=== PATIENT | female | born 1940 | race Caucasian/White ===

== ENCOUNTER → 2017-06-28 07:56 | Outpatient (CLI) | payer MEDICARE, OTHER, SELFPAY ==
[2017-06-28 08:24] LABS: Add Manual Diff / Slide Review NO; Basophils Percent Auto 1.2 % (0-2); Eosinophils Percent Auto 3.2 % (2-4); Hematocrit 38.6 % (36-46); Hemoglobin 13.4 g/dL (12.0-16.0); Lymphocytes Percent Auto 37.4 % (25-40); Mean Corpuscular HGB Conc 34.6 % (30-36); Mean Corpuscular Hemoglobin 32.8 PG (26-34); Mean Corpuscular Volume 94.6 fL (80-100); Monocytes Percent Auto 8.6 % (3-14); Neutrophils Absolute Auto 3600 /uL (3000-5900); Neutrophils Percent Auto 49.6 % (50-75); Platelet Count 105 X10^3/uL (150-400); Red Blood Cell Count 4.08 X10^6/uL (4.0-5.2); Red Cell Distribution Width 14.3 % (11.6-14.8); White Blood Cell Count 7.3 X10^3/uL (4.5-11.0)
== END ==
PROVIDERS: PCP Physician Assistant; Visit Provider Internal Medicine Hematology
DX: D69.3 Immune thrombocytopenic purpura (principal)
CPT/HCPCS: 36415; 85025

== ENCOUNTER → 2017-08-02 07:53 | Outpatient (CLI) | payer MEDICARE, OTHER, SELFPAY ==
[2017-08-02 08:15] LABS: Add Manual Diff / Slide Review NO; Basophils Percent Auto 1.9 % (0-2); Eosinophils Percent Auto 4.5 % (2-4); Hematocrit 38.6 % (36-46); Hemoglobin 13.2 g/dL (12.0-16.0); Lymphocytes Percent Auto 35.2 % (25-40); Mean Corpuscular HGB Conc 34.3 % (30-36); Mean Corpuscular Volume 96.3 fL (80-100); Monocytes Percent Auto 9.9 % (3-14); Neutrophils Absolute Auto 3900 /uL (3000-5900); Neutrophils Percent Auto 48.5 % (50-75); Platelet Count 134 X10^3/uL (150-400); Red Blood Cell Count 4.01 X10^6/uL (4.0-5.2); Red Cell Distribution Width 14.5 % (11.6-14.8)
== END ==
PROVIDERS: PCP Physician Assistant
DX: D69.3 Immune thrombocytopenic purpura (principal)
CPT/HCPCS: 36415; 85025

== ENCOUNTER → 2017-08-28 08:18 | Outpatient (CLI) | payer MEDICARE, OTHER, SELFPAY ==
[2017-08-28 08:35] LABS: Add Manual Diff / Slide Review NO; Basophils Percent Auto 1.5 % (0-2); Eosinophils Percent Auto 3.6 % (2-4); Hematocrit 39.4 % (36-46); Hemoglobin 13.5 g/dL (12.0-16.0); Lymphocytes Percent Auto 23.8 % (25-40); Mean Corpuscular HGB Conc 34.1 % (30-36); Mean Corpuscular Hemoglobin 32.9 PG (26-34); Mean Corpuscular Volume 96.6 fL (80-100); Monocytes Percent Auto 8.4 % (3-14); Neutrophils Absolute Auto 6300 /uL (3000-5900); Neutrophils Percent Auto 62.7 % (50-75); Platelet Count 129 X10^3/uL (150-400); Red Blood Cell Count 4.08 X10^6/uL (4.0-5.2); Red Cell Distribution Width 14.4 % (11.6-14.8)
== END ==
PROVIDERS: PCP Physician Assistant; Visit Provider Internal Medicine Hematology
DX: D69.3 Immune thrombocytopenic purpura (principal)
CPT/HCPCS: 36415; 85025

== ENCOUNTER → 2017-10-03 09:50 | Outpatient (CLI) | payer MEDICARE, OTHER, SELFPAY ==
[2017-10-03 10:14] LABS: Add Manual Diff / Slide Review NO; Basophils Percent Auto 1.6 % (0-2); Eosinophils Percent Auto 3.4 % (2-4); Hematocrit 38.1 % (36-46); Hemoglobin 13.1 g/dL (12.0-16.0); Lymphocytes Percent Auto 26.6 % (25-40); Mean Corpuscular HGB Conc 34.3 % (30-36); Mean Corpuscular Hemoglobin 32.9 PG (26-34); Mean Corpuscular Volume 95.9 fL (80-100); Monocytes Percent Auto 8.4 % (3-14); Neutrophils Absolute Auto 6000 /uL (3000-5900); Platelet Count 119 X10^3/uL (150-400); Red Blood Cell Count 3.97 X10^6/uL (4.0-5.2); Red Cell Distribution Width 14.2 % (11.6-14.8)
== END ==
PROVIDERS: PCP Physician Assistant; Visit Provider Internal Medicine Hematology
DX: D69.3 Immune thrombocytopenic purpura (principal)
CPT/HCPCS: 36415; 85025

== ENCOUNTER → 2017-10-09 14:54 | Outpatient (CLI) | payer MEDICARE, OTHER, SELFPAY | PROVIDERS: PCP Physician Assistant; Visit Provider Internal Medicine | DX: M79.9 Soft tissue disorder, unspecified (principal); D69.6 Thrombocytopenia, unspecified; S81.802A Unspecified open wound, left lower leg, initial encounter | CPT/HCPCS: 11042; 87070; 87075; 87077; 87147; 87186; 87205 ==

== ENCOUNTER → 2017-10-14 13:51 | Outpatient (CLI) | payer MEDICARE, OTHER, SELFPAY ==
--- NOTE | 2017-10-14 | OV.WND_ITS ---
Progress Note Details Patient Name: Priscilla Mahan Patient Number: [id number] PatientPatientDate: 10/14/2017 Clinician: Che Hu Physician / Linen Controller: Jovon Tadeo SUBJECTIVE Chief Complaint This information was obtained from the patient Trauma wound to left lateral leg. Allergies penicillin (Reaction: unkown), Sulfa (Sulfonamide Antibiotics) (Reaction: unknown), Iodinated Contrast Media - Oral and IV Dye (Reaction: rapid heartrate), latex (Severity: Moderate, Reaction: rash) HPI This information was obtained from the patient The following HPI elements were documented for the patient's wound: Location: left leg Quality: trauma new wound hit on car door Severity: mild Duration: 10 days Modifying Factors: ITP, use of Prednisone QD 10/14/17. Seen by Dr. Tadeo. The patient reports some continued pain associated with the lower leg trauma wound. Her wound culture from last week grew a coag negative Staph and she's not currently on antibiotics. 10/09/17. Seen by Dr. Tadeo. The patient returns to clinic with a new left lower leg trauma wound that occurred about one month ago and started as a bruise but has since started to deteriorate and drain a bit. She reports only minimal pain at the site and has not been on antibiotics. 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 She's also been given a prescription for Keflex however has not had this fill yet. 07/16/16. Seen by Brook Prasad PA-C. The patient reports no drainage from her left lower leg wound since her last evaluation. 07/02/16. Seen by Georges Prasad PA-C. The patient reports minimal drainage from her leg wound. 06/25/16. Seen by Georges Prasad PA-C. The patient reports further decreased drainage from her lower leg wound. 06/17/16. Seen by Georges Prasad PA-C. The patient reports decreased drainage from her lower leg wound since her last evaluation. 06/14/16. Seen by Dr. Tadeo. The patient reports minimal discomfort associated with the chronic left lower leg trauma wound since her last visit and she has been applying topical gentamicin for chronic wound infection as recommended. 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 06/05/16. Seen by Dr. Tadeo. The patient reports continued but decreasing burning associated with the chronic left lower leg trauma wound since her last visit when it was noted the wound had deteriorated considerably. She's been applying topical gentamicin for an presumed infection and reports less drainage and has had no fevers. Of note, she continues on prednisone for idiopathic thrombocytopenia. 05/31/16. Seen by Dr. Tadeo. The patient reports some continued burning and drainage associated with the chronic left lower leg trauma wound over the past week. 05/22/16. Seen by Dr. Tadeo. The patient returns to clinic following a trip to [place] where she saw a wound care provider. She states there's been no change with her management and she does not report significant pain nor drainage associated with the chronic left lower leg trauma wound since her last visit at the end of April. She is also seen by general surgery felt there is no need to evacuate the hematoma at that time.She also continues on prednisone for her thrombocytopenia and understands that this has been significantly impacting her wound healing. 05/02/16. Seen by Dr. Tadeo. The patient reports some mild pain at the site of the left lower leg trauma wound and associated hematoma. She does not report significant drainage from the site nor fevers or feeling unwell in general. Of note, her condition is complicated by long-term use of prednisone to treat idiopathic thrombocytopenia. Her platelet count on 04/29/16 was 94. 04/18/16. Seen by Dr. Tadeo. The patient does not report pain nor significant drainage associated with the chronic left lower leg trauma wound and states that the soft tissue swelling which is a hematoma has decreased considerably over the past few weeks. 04/11/16. Seen by Dr. Tadeo. The patient continues to report some mild discomfort associated with the left posterior lower leg trauma wound and associated hematoma. She states there is only minimal drainage associated with the nonpressure ulcers at the site. 04/03/16. Seen by Dr. Tadeo. The patient has been seen previously in our clinic about 3 years ago and presents today with a new small wound in the posterior left lower leg that resulted following a traumatic injury to the area about 3 weeks ago. She complains of swelling and bruising at the site does not report any significant drainage, redness, or fevers. Of note she carries a diagnosis of idiopathic thrombocytopenia and has been on chronic steroid therapy for many years. States banged left leg on June 24 on her 's toenail. It was larger than it is now. Been putting Neosporin on it and left open to air. 08/07/12 Progressing OK. Is geting all wound care in clinic. 08/11/12 states clipped left leg with sandal 2 days ago and has new hematoma. Dressing remains from Friday. States that she feels wound has been more painful.08/25 Pt states burning in leg was terrible yesterday and the leg felt warm. Pt states it feels better today but she still feels a burning. 09/07/12 States tried her support socks this week but just gets new bruises. Frustrating! Changed dressing x 1 this week. States feels is improving 09/15/12 no new complaints 09/24/12 Patient removed dressing yesterday because the wound was tingling and she feels the wound looked different. Patient states that it is yellow around the wound 10/13/12 Skin tear noted from car door on 10/04/12. PT old wound left leg continues to be healed. 11/10/2012- No new problems or complaints. Wound his covered in dark red scab. Patient applying triamcinolone cream to legs once daily. 05/05/13 Patient injured medial part of right lower leg in March. States it has a blister and has not resolved. Appears now as a buise. Injured lateral right leg a few days ago on her bed. Also appears as a red, purple bruise Past Medical History This information was obtained from the patient Patient has a medical history of: Idiopathic Thrombocytopenic Purpura - 07/11/2006 Hypertension Atrial Flutter Osteoporosis Anxiety Microscopic hematuria Scoliosis Complaints and Symptoms This information was obtained from the patient Patient complains of: General Notes: I have reviewed and concur with the Review of Systems and Past Family Social History documents completed by the clinician, I have reviewed and concur with the Wound Assessment document completed by the clinician Cardiovascular (Central/Peripheral): Edema Hematologic/Lymphatic: Bruising, Bleeding / Clotting Disorders, Bleeding Tendency Integumentary (Hair/Skin/Nails): Open Sore Prior Wound History: Drainage, Erythema, Pain Patient denies complaints or symptoms related to: Cardiovascular (Central): Irregular heart beat Cardiovascular (Central/Peripheral): Intermittent Claudication, Lower extremity (leg) resting pain, Lower extremity (leg) swelling Constitutional Symptoms (General Health): Chills, Fever Endocrine: Polydypsia (Excessive Thirst), Polyuria (Excessive Urination) Gastrointestinal (GI): Nausea / Vomiting, Stomach/abdominal pain Genitourinary (): Urinary Incontinence Musculoskeletal: Assistive Devices, Deformities Neurological: Abnormal Gait, Loss of Protective Sensation Prior Wound History: Bleeding, Malodor Psychiatric: Depression, Memory Loss Respiratory: Oxygen Use, Shortness of Breath OBJECTIVE Constitutional BP elevated; Afebrile; Alert and in no distress. Well developed. Alert. Clean appearing.. Height/Length: 65 in (165.1 cm), Weight: 124.7 lbs (56.68 kgs), BMI: 20.7, Temperature: 98.8 ?F ( 37.11 ?C), Pulse: 70 bpm, Respiratory Rate: 16 breaths/min, Blood Pressure: 148/80 mmHg, Pulse Oximetry: 99 %. Ears, Nose, Mouth, and Throat: No clinically significant hearing loss on informal examination. Cardiovascular: Affected extremity exhibits no peripheral edema or cyanosis, is warm, and is well perfused. Capillary refill is less than 2 seconds. Integumentary (Hair, Skin) No periwound erythema, warmth, or significant drainage. No periwound rashes appreciated or noted otherwise.. Refer to appropriate clinician wound documentation for this visit; left lower leg wound extends to subcut with base partially covered with red, friable granulation, remainder fibrin and slough. Wound #4 Left, Lateral Leg is an acute Partial Thickness Trauma Wound and has received a status of Not Healed. Subsequent wound encounter measurements are 1.8cm length x 0.8cm width x 0.1cm depth, with an area of 1.44 sq cm and a volume of 0.144 cubic cm. No tunneling has been noted. No sinus tract has been noted. No undermining has been noted. There is a moderate amount of serosanguineous drainage noted which has no odor. The patient reports a wound pain of level 2/10. The wound margin is attached. Wound bed has Yes epithelialization, No eschar, Yes slough, No granulation. The periwound skin texture is normal. The periwound skin moisture is normal. The periwound skin exhibited: Hemosiderosis. The periwound skin did not exhibit: Atrophie [place], Cyanosis, Ecchymosis, Erythema, Pallor, Rubor. The temperature of the periwound skin is WNL. Periwound skin does not exhibit signs or symptoms of infection. Local Pulse is Palpable. Neurological: Cranial nerves grossly intact with symmetric function normal by informal observation.. ASSESSMENT Active Problems ICD-10 (Encounter Diagnosis) S81.802D - Unspecified open wound, left lower leg, subsequent encounter (Encounter Diagnosis) B95.7 - Other staphylococcus as the cause of diseases classified elsewhere PROCEDURES Wound #4 Wound #4 (Trauma Wound) is located on the left, lateral leg. A skin/ subcutaneous tissue level surgical debridement with a total area debrided of 1.44 sq cm was performed by Jovon Tadeo MD. Subcutaneous was removed along with devitalized tissue: clots and exudate. The following instrument(s) were used: curette. Pain control was achieved using 4% Lido. A time out was conducted prior to the start of the procedure. A minimal amount of bleeding was controlled with n/a. The procedure was tolerated well with a pain level of 0 throughout and a pain level of 0 following the procedure. Post Debridement Measurements: 1.8cm length x 0.8cm width x 0.2cm depth; with an area of 1.44 sq cm and a volume of 0.288 cubic cm; Additional Information Muscle fascia or bone removed and sent to pathology?: No PLAN Wound Orders: Wound #4 Left, Lateral Leg Anesthetic Topical Xylocaine to wound bed. - In clinic only. Cleanser Cleanse Wound: - Normal saline and gauze, may use distilled water at home. May Shower. - Please protect in shower, using cast protector or plastic bag. Topical Treatments Antibiotic/Antimicrobial Ointment/Cream. - Gentamicin ointment. Dressings Primary dressing: - Adaptic cut to cover. Cover and secure with: - Aquacel foam cut to place over adaptic, secured with conform wrap gauze. Change Dressing: - Every other day. Additional Orders: Follow-Up Appointments Return Appointment: - - One week. Other information: If you develop fever, chills, increased pain, drainage, redness or swelling please call our office. If after hours, respond to the ER. Should you experience any significant changes in your wound (s) or have any questions regarding your home care instructions please contact the wound center @ [phone]. If after hours, contact your primary care physician or go to the hospital emergency room. Scribing Attestation I attest, as the nurse, that I scribed these orders for the physician. General Notes: Culture results reviewed today, no need to take the cephalexin at this time. I've reviewed the clinician's documentation and agree with the evaluation and plan as written. In addition the patient's wound demonstrates evidence of non-viable devitalized tissue which will continue to benefit from sharp debridement to help promote granulation and expedite healing. Also, the patient will apply topical gentamicin to treat the coag negative Staph culture. Electronic Signature(s) Signed By: Date: Jovon Tadeo MD 10/15/2017 06:50:35 Entered By: Jovon Tadeo on 10/15/2017 06:39:32
== END ==
PROVIDERS: PCP Physician Assistant; Visit Provider Internal Medicine
DX: S81.802A Unspecified open wound, left lower leg, initial encounter (principal); W22.8XXA Striking against or struck by other objects, initial encounter; B95.7 Other staphylococcus as the cause of diseases classified elsewhere
CPT/HCPCS: 11042

== ENCOUNTER → 2017-10-16 08:08 | Outpatient (CLI) | payer MEDICARE, OTHER, SELFPAY ==
[2017-10-16 09:16] LABS: Add Manual Diff / Slide Review NO; Basophils Percent Auto 2.8 % (0-2); Eosinophils Percent Auto 4.2 % (2-4); Hematocrit 39.9 % (36-46); Hemoglobin 13.6 g/dL (12.0-16.0); Lymphocytes Percent Auto 38.4 % (25-40); Mean Corpuscular Hemoglobin 32.9 PG (26-34); Mean Corpuscular Volume 96.8 fL (80-100); Monocytes Percent Auto 8.2 % (3-14); Neutrophils Absolute Auto 3600 /uL (3000-5900); Neutrophils Percent Auto 46.4 % (50-75); Platelet Count 143 X10^3/uL (150-400); Red Blood Cell Count 4.12 X10^6/uL (4.0-5.2); Red Cell Distribution Width 14.2 % (11.6-14.8); White Blood Cell Count 7.8 X10^3/uL (4.5-11.0)
== END ==
PROVIDERS: PCP Physician Assistant; Visit Provider Internal Medicine Hematology
DX: D69.3 Immune thrombocytopenic purpura (principal)
CPT/HCPCS: 36415; 85025

== ENCOUNTER → 2017-10-20 09:28 | Outpatient (CLI) | payer MEDICARE, OTHER, SELFPAY ==
--- NOTE | 2017-10-20 | OV.WND_ITS ---
Progress Note Details Patient Name: Priscilla Mahan Patient Number: [id number] PatientPatientDate: 10/20/2017 Clinician: Radha Dunn Clinician Cosigner: Dennise Pereira Physician / Traditional Chinese Herbalist: Jovon Tadeo SUBJECTIVE Chief Complaint This information was obtained from the patient Trauma wound to left lateral leg. Allergies penicillin (Reaction: unkown), Sulfa (Sulfonamide Antibiotics) (Reaction: unknown), Iodinated Contrast Media - Oral and IV Dye (Reaction: rapid heartrate), latex (Severity: Moderate, Reaction: rash) HPI This information was obtained from the patient The following HPI elements were documented for the patient's wound: Location: left leg Quality: trauma new wound hit on car door Severity: mild Duration: 10 days Modifying Factors: ITP, use of Prednisone QD 10/20/17. Seen by Dr. Tadeo. The patient reports minimal discomfort associated with the chronic left lower leg trauma wound since her last visit and she has been applying topical gentamicin for chronic wound infection as recommended. 10/14/17. Seen by Dr. Tadeo. The patient reports some continued pain associated with the lower leg trauma wound. Her wound culture from last week grew a coag negative Staph and she's not currently on antibiotics. 10/09/17. Seen by Dr. Tadeo. The patient returns to clinic with a new left lower leg trauma wound that occurred about one month ago and started as a bruise but has since started to deteriorate and drain a bit. She reports only minimal pain at the site and has not been on antibiotics. 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 She's also been given a prescription for Keflex however has not had this fill yet. 07/16/16. Seen by Brook Prasad PA-C. The patient reports no drainage from her left lower leg wound since her last evaluation. 07/02/16. Seen by Georges Prasad PA-C. The patient reports minimal drainage from her leg wound. 06/25/16. Seen by Georges Prasad PA-C. The patient reports further decreased drainage from her lower leg wound. 06/17/16. Seen by Georges Prasad PA-C. The patient reports decreased drainage from her lower leg wound since her last evaluation. 06/14/16. Seen by Dr. Tadeo. The patient reports minimal discomfort associated with the chronic left lower leg trauma wound since her last visit and she has been applying topical gentamicin for chronic wound infection as recommended. 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 06/05/16. Seen by Dr. Tadeo. The patient reports continued but decreasing burning associated with the chronic left lower leg trauma wound since her last visit when it was noted the wound had deteriorated considerably. She's been applying topical gentamicin for an presumed infection and reports less drainage and has had no fevers. Of note, she continues on prednisone for idiopathic thrombocytopenia. 05/31/16. Seen by Dr. Tadeo. The patient reports some continued burning and drainage associated with the chronic left lower leg trauma wound over the past week. 05/22/16. Seen by Dr. Tadeo. The patient returns to clinic following a trip to [place] where she saw a wound care provider. She states there's been no change with her management and she does not report significant pain nor drainage associated with the chronic left lower leg trauma wound since her last visit at the end of April. She is also seen by general surgery felt there is no need to evacuate the hematoma at that time.She also continues on prednisone for her thrombocytopenia and understands that this has been significantly impacting her wound healing. 05/02/16. Seen by Dr. Tadeo. The patient reports some mild pain at the site of the left lower leg trauma wound and associated hematoma. She does not report significant drainage from the site nor fevers or feeling unwell in general. Of note, her condition is complicated by long-term use of prednisone to treat idiopathic thrombocytopenia. Her platelet count on 04/29/16 was 94. 04/18/16. Seen by Dr. Tadeo. The patient does not report pain nor significant drainage associated with the chronic left lower leg trauma wound and states that the soft tissue swelling which is a hematoma has decreased considerably over the past few weeks. 04/11/16. Seen by Dr. Tadeo. The patient continues to report some mild discomfort associated with the left posterior lower leg trauma wound and associated hematoma. She states there is only minimal drainage associated with the nonpressure ulcers at the site. 04/03/16. Seen by Dr. Tadeo. The patient has been seen previously in our clinic about 3 years ago and presents today with a new small wound in the posterior left lower leg that resulted following a traumatic injury to the area about 3 weeks ago. She complains of swelling and bruising at the site does not report any significant drainage, redness, or fevers. Of note she carries a diagnosis of idiopathic thrombocytopenia and has been on chronic steroid therapy for many years. States banged left leg on June 24 on her 's toenail. It was larger than it is now. Been putting Neosporin on it and left open to air. 08/07/12 Progressing OK. Is geting all wound care in clinic. 08/11/12 states clipped left leg with sandal 2 days ago and has new hematoma. Dressing remains from Friday. States that she feels wound has been more painful.08/25 Pt states burning in leg was terrible yesterday and the leg felt warm. Pt states it feels better today but she still feels a burning. 09/07/12 States tried her support socks this week but just gets new bruises. Frustrating! Changed dressing x 1 this week. States feels is improving 09/15/12 no new complaints 09/24/12 Patient removed dressing yesterday because the wound was tingling and she feels the wound looked different. Patient states that it is yellow around the wound 10/13/12 Skin tear noted from car door on 10/04/12. PT old wound left leg continues to be healed. 11/10/2012- No new problems or complaints. Wound his covered in dark red scab. Patient applying triamcinolone cream to legs once daily. 05/05/13 Patient injured medial part of right lower leg in March. States it has a blister and has not resolved. Appears now as a buise. Injured lateral right leg a few days ago on her bed. Also appears as a red, purple bruise Past Medical History This information was obtained from the patient Patient has a medical history of: Idiopathic Thrombocytopenic Purpura - 07/11/2006 Hypertension Atrial Flutter Osteoporosis Anxiety Microscopic hematuria Scoliosis Complaints and Symptoms This information was obtained from the patient Patient complains of: General Notes: I have reviewed and concur with the Review of Systems and Past Family Social History documents completed by the clinician, I have reviewed and concur with the Wound Assessment document completed by the clinician Cardiovascular (Central/Peripheral): Edema Hematologic/Lymphatic: Bruising, Bleeding / Clotting Disorders, Bleeding Tendency Integumentary (Hair/Skin/Nails): Open Sore Prior Wound History: Drainage, Erythema, Pain Patient denies complaints or symptoms related to: Cardiovascular (Central): Irregular heart beat Cardiovascular (Central/Peripheral): Intermittent Claudication, Lower extremity (leg) resting pain, Lower extremity (leg) swelling Constitutional Symptoms (General Health): Chills, Fever Endocrine: Polydypsia (Excessive Thirst), Polyuria (Excessive Urination) Gastrointestinal (GI): Nausea / Vomiting, Stomach/abdominal pain Genitourinary (): Urinary Incontinence Musculoskeletal: Assistive Devices, Deformities Neurological: Abnormal Gait, Loss of Protective Sensation Prior Wound History: Bleeding, Malodor Psychiatric: Depression, Memory Loss Respiratory: Oxygen Use, Shortness of Breath OBJECTIVE Constitutional BP elevated; Afebrile; Alert and in no distress. Well developed. Alert. Clean appearing.. Height/Length: 65 in (165.1 cm), Weight: 126.3 lbs (57.41 kgs), BMI: 21, Temperature: 98.0 ?F ( 36.67 ?C), Pulse: 70 bpm, Respiratory Rate: 18 breaths/min, Blood Pressure: 140/82 mmHg, Pulse Oximetry: 96 %. Ears, Nose, Mouth, and Throat: No clinically significant hearing loss on informal examination. Cardiovascular: 1+ left lower extremity edema. Integumentary (Hair, Skin) Hemosiderin staining noted over left lower leg. Refer to appropriate clinician wound documentation for this visit; left lower leg wound extends to subcut with base partially covered with pink granulation, remainder minimal hematoma, fibrin and slough. Wound #4 Left, Lateral Leg is an acute Partial Thickness Trauma Wound and has received a status of Not Healed. Subsequent wound encounter measurements are 1.8cm length x 1.2cm width x 0.1cm depth, with an area of 2.16 sq cm and a volume of 0.216 cubic cm. No tunneling has been noted. No sinus tract has been noted. No undermining has been noted. There is a moderate amount of serosanguineous drainage noted which has no odor. The patient reports a wound pain of level 2/10. The wound margin is attached. Wound bed has No epithelialization, No eschar, Yes slough, Yes pink, spongy granulation. The periwound skin texture is normal. The periwound skin moisture is normal. The periwound skin exhibited: Hemosiderosis. The periwound skin did not exhibit: Atrophie [place], Cyanosis, Ecchymosis, Erythema, Pallor, Rubor. The temperature of the periwound skin is WNL. Periwound skin does not exhibit signs or symptoms of infection. Local Pulse is Palpable. Neurological: Cranial nerves grossly intact with symmetric function normal by informal observation.. ASSESSMENT Active Problems ICD-10 (Encounter Diagnosis) S81.802D - Unspecified open wound, left lower leg, subsequent encounter (Encounter Diagnosis) M79.9 - Soft tissue disorder, unspecified PROCEDURES Wound #4 Wound #4 (Trauma Wound) is located on the left, lateral leg. A skin/ subcutaneous tissue level surgical debridement with a total area debrided of 2.16 sq cm was performed by Jovon Tadeo MD. Subcutaneous was removed along with devitalized tissue: exudate and slough. The following instrument(s) were used: curette. Pain control was achieved using 4% Lido. A time out was conducted prior to the start of the procedure. A minimal amount of bleeding was controlled with pressure. The procedure was tolerated well with a pain level of 0 throughout and a pain level of 0 following the procedure. Post Debridement Measurements: 1.8cm length x 1.2cm width x 0.2cm depth; with an area of 2.16 sq cm and a volume of 0.432 cubic cm; Additional Information Muscle fascia or bone removed and sent to pathology?: No PLAN Wound Orders: Wound #4 Left, Lateral Leg Anesthetic Topical Xylocaine to wound bed. - In clinic only. Cleanser Cleanse Wound: - Normal saline and gauze, may use distilled water at home. May Shower. - Please protect in shower, using cast protector or plastic bag. Dressings Primary dressing: - Adaptic cut to cover. Cover and secure with: - Aquacel foam cut to place over adaptic, secured with conform wrap gauze. Change Dressing: - Every other day. Scribing Attestation I attest, as the nurse, that I scribed these orders for the physician. Additional Orders: Follow-Up Appointments Return Appointment: - - One week. Other information: If you develop fever, chills, increased pain, drainage, redness or swelling please call our office. If after hours, respond to the ER. Should you experience any significant changes in your wound (s) or have any questions regarding your home care instructions please contact the wound center @ [phone]. If after hours, contact your primary care physician or go to the hospital emergency room. I've reviewed the clinician's documentation and agree with the evaluation and plan as written. In addition the patient's wound demonstrates evidence of non-viable devitalized tissue which will continue to benefit from sharp debridement to help promote granulation and expedite healing. Also, I've removed a small amount of hematoma from the wound base and we'll discontinue use of topical gentamicin. Electronic Signature(s) Signed By: Date: Jovon Tadeo MD 10/21/2017 09:56:44 Entered By: Jovon Tadeo on 10/21/2017 08:48:01
== END ==
PROVIDERS: PCP Physician Assistant; Visit Provider Internal Medicine
DX: S81.802D Unspecified open wound, left lower leg, subsequent encounter (principal)
CPT/HCPCS: 11042

== ENCOUNTER → 2017-10-27 08:42 | Outpatient (CLI) | payer MEDICARE, OTHER, SELFPAY ==
--- NOTE | 2017-10-27 | OV.WND_ITS ---
Progress Note Details Patient Name: Priscilla Mahan Patient Number: [id number] PatientPatientDate: 10/27/2017 Clinician: Radha Dunn Clinician Cosigner: Dennise Pereira Physician / Boilermaker Welder: Jovon Tadeo SUBJECTIVE Chief Complaint This information was obtained from the patient Trauma wound to left lateral leg. Allergies penicillin (Reaction: unkown), Sulfa (Sulfonamide Antibiotics) (Reaction: unknown), Iodinated Contrast Media - Oral and IV Dye (Reaction: rapid heartrate), latex (Severity: Moderate, Reaction: rash) HPI This information was obtained from the patient The following HPI elements were documented for the patient's wound: Location: left leg Quality: trauma new wound hit on car door Severity: mild Duration: 10 days Modifying Factors: ITP, use of Prednisone QD 10/27/17. Seen by Dr. Tadeo. The patient reports minimal discomfort associated with the chronic left lower leg trauma wound since her last visit and she has been applying topical gentamicin for chronic wound infection as recommended. 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 10/20/17. Seen by Dr. Tadeo. The patient reports minimal discomfort associated with the chronic left lower leg trauma wound since her last visit and she has been applying topical gentamicin for chronic wound infection as recommended. 10/14/17. Seen by Dr. Tadeo. The patient reports some continued pain associated with the lower leg trauma wound. Her wound culture from last week grew a coag negative Staph and she's not currently on antibiotics. 10/09/17. Seen by Dr. Tadeo. The patient returns to clinic with a new left lower leg trauma wound that occurred about one month ago and started as a bruise but has since started to deteriorate and drain a bit. She reports only minimal pain at the site and has not been on antibiotics. 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 She's also been given a prescription for Keflex however has not had this fill yet. 07/16/16. Seen by Brook Prasad PA-C. The patient reports no drainage from her left lower leg wound since her last evaluation. 07/02/16. Seen by Georges Prasad PA-C. The patient reports minimal drainage from her leg wound. 06/25/16. Seen by Georges Prasad PA-C. The patient reports further decreased drainage from her lower leg wound. 06/17/16. Seen by Georges Prasad PA-C. The patient reports decreased drainage from her lower leg wound since her last evaluation. 06/14/16. Seen by Dr. Tadeo. The patient reports minimal discomfort associated with the chronic left lower leg trauma wound since her last visit and she has been applying topical gentamicin for chronic wound infection as recommended. 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 06/05/16. Seen by Dr. Tadeo. The patient reports continued but decreasing burning associated with the chronic left lower leg trauma wound since her last visit when it was noted the wound had deteriorated considerably. She's been applying topical gentamicin for an presumed infection and reports less drainage and has had no fevers. Of note, she continues on prednisone for idiopathic thrombocytopenia. 05/31/16. Seen by Dr. Tadeo. The patient reports some continued burning and drainage associated with the chronic left lower leg trauma wound over the past week. 05/22/16. Seen by Dr. Tadeo. The patient returns to clinic following a trip to [place] where she saw a wound care provider. She states there's been no change with her management and she does not report significant pain nor drainage associated with the chronic left lower leg trauma wound since her last visit at the end of April. She is also seen by general surgery felt there is no need to evacuate the hematoma at that time.She also continues on prednisone for her thrombocytopenia and understands that this has been significantly impacting her wound healing. 05/02/16. Seen by Dr. Tadeo. The patient reports some mild pain at the site of the left lower leg trauma wound and associated hematoma. She does not report significant drainage from the site nor fevers or feeling unwell in general. Of note, her condition is complicated by long-term use of prednisone to treat idiopathic thrombocytopenia. Her platelet count on 04/29/16 was 94. 04/18/16. Seen by Dr. Tadeo. The patient does not report pain nor significant drainage associated with the chronic left lower leg trauma wound and states that the soft tissue swelling which is a hematoma has decreased considerably over the past few weeks. 04/11/16. Seen by Dr. Tadeo. The patient continues to report some mild discomfort associated with the left posterior lower leg trauma wound and associated hematoma. She states there is only minimal drainage associated with the nonpressure ulcers at the site. 04/03/16. Seen by Dr. Tadeo. The patient has been seen previously in our clinic about 3 years ago and presents today with a new small wound in the posterior left lower leg that resulted following a traumatic injury to the area about 3 weeks ago. She complains of swelling and bruising at the site does not report any significant drainage, redness, or fevers. Of note she carries a diagnosis of idiopathic thrombocytopenia and has been on chronic steroid therapy for many years. States banged left leg on June 24 on her 's toenail. It was larger than it is now. Been putting Neosporin on it and left open to air. 08/07/12 Progressing OK. Is geting all wound care in clinic. 08/11/12 states clipped left leg with sandal 2 days ago and has new hematoma. Dressing remains from Friday. States that she feels wound has been more painful.08/25 Pt states burning in leg was terrible yesterday and the leg felt warm. Pt states it feels better today but she still feels a burning. 09/07/12 States tried her support socks this week but just gets new bruises. Frustrating! Changed dressing x 1 this week. States feels is improving 09/15/12 no new complaints 09/24/12 Patient removed dressing yesterday because the wound was tingling and she feels the wound looked different. Patient states that it is yellow around the wound 10/13/12 Skin tear noted from car door on 10/04/12. PT old wound left leg continues to be healed. 11/10/2012- No new problems or complaints. Wound his covered in dark red scab. Patient applying triamcinolone cream to legs once daily. 05/05/13 Patient injured medial part of right lower leg in March. States it has a blister and has not resolved. Appears now as a buise. Injured lateral right leg a few days ago on her bed. Also appears as a red, purple bruise Past Medical History This information was obtained from the patient Patient has a medical history of: Idiopathic Thrombocytopenic Purpura - 07/11/2006 Hypertension Atrial Flutter Osteoporosis Anxiety Microscopic hematuria Scoliosis Complaints and Symptoms This information was obtained from the patient Patient complains of: General Notes: I have reviewed and concur with the Review of Systems and Past Family Social History documents completed by the clinician, I have reviewed and concur with the Wound Assessment document completed by the clinician Cardiovascular (Central/Peripheral): Edema Hematologic/Lymphatic: Bruising, Bleeding / Clotting Disorders, Bleeding Tendency Integumentary (Hair/Skin/Nails): Open Sore Prior Wound History: Drainage, Erythema, Pain Patient denies complaints or symptoms related to: Cardiovascular (Central): Irregular heart beat Cardiovascular (Central/Peripheral): Intermittent Claudication, Lower extremity (leg) resting pain, Lower extremity (leg) swelling Constitutional Symptoms (General Health): Chills, Fever Endocrine: Polydypsia (Excessive Thirst), Polyuria (Excessive Urination) Gastrointestinal (GI): Nausea / Vomiting, Stomach/abdominal pain Genitourinary (): Urinary Incontinence Musculoskeletal: Assistive Devices, Deformities Neurological: Abnormal Gait, Loss of Protective Sensation Prior Wound History: Bleeding, Malodor Psychiatric: Depression, Memory Loss Respiratory: Oxygen Use, Shortness of Breath OBJECTIVE Constitutional Vital signs reviewed and noted. Well developed. Alert. Clean appearing.. Height/ Length: 65 in (165.1 cm), Weight: 124.8 lbs (56.73 kgs), BMI: 20.8, Temperature: 97.8 ?F (36.56 ?C), Pulse : 77 bpm, Respiratory Rate: 18 breaths/min, Blood Pressure: 129/75 mmHg, Pulse Oximetry: 98 %. Ears, Nose, Mouth, and Throat: No clinically significant hearing loss on informal examination. Cardiovascular: 1+ left lower extremity edema. Integumentary (Hair, Skin) No periwound erythema, warmth, or significant drainage. No periwound rashes appreciated or noted otherwise.. Refer to appropriate clinician wound documentation for this visit; left lower leg wound extends to subcut with base partially covered with pink granulation, remainder fibrin and slough. Wound #4 Left, Lateral Leg is an acute Partial Thickness Trauma Wound and has received a status of Not Healed. Subsequent wound encounter measurements are 1.6cm length x 1.3cm width x 0.1cm depth, with an area of 2.08 sq cm and a volume of 0.208 cubic cm. No tunneling has been noted. No sinus tract has been noted. No undermining has been noted. There is a moderate amount of serosanguineous drainage noted which has no odor. The patient reports a wound pain of level 2/10. The wound margin is attached. Wound bed has No epithelialization, No eschar, Yes slough, No granulation. The periwound skin texture is normal. The periwound skin moisture is normal. The periwound skin exhibited: Hemosiderosis. The periwound skin did not exhibit: Atrophie Bess, Cyanosis, Ecchymosis, Erythema, Pallor, Rubor. The temperature of the periwound skin is WNL. Periwound skin does not exhibit signs or symptoms of infection. Local Pulse is Palpable. Neurological: Cranial nerves grossly intact with symmetric function normal by informal observation.. 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 A skin/ subcutaneous tissue level surgical debridement with a total area debrided of 2.08 sq cm was performed by Jovon Tadeo MD. Subcutaneous was removed along with devitalized tissue: slough. The following instrument(s) were used: curette. Pain control was achieved using 4% Lido. A time out was conducted prior to the start of the procedure. A minimal amount of bleeding was controlled with pressure. The procedure was tolerated well with a pain level of 0 throughout and a pain level of 0 following the procedure. Post Debridement Measurements: 1.6cm length x 1.3cm width x 0.1cm depth; with an area of 2.08 sq cm and a volume of 0.208 cubic cm; Additional Information Muscle fascia or bone removed and sent to pathology?: No PLAN Wound Orders: Wound #4 Left, Lateral Leg Anesthetic Topical Xylocaine to wound bed. - In clinic only. Cleanser Cleanse Wound: - Normal saline and gauze, may use distilled water at home. May Shower. - Please protect in shower, using cast protector or plastic bag. Dressings Primary dressing: - Triple antibiotic ointmentm Cover and secure with: - Border Foam Change Dressing: - Every other day. Compression/Edema Control Elevation of leg(s) above the level of the heart when sitting. Avoid prolonged standing in one place. Single Layer Compression Hose - Tetra F Scribing Attestation I attest, as the nurse, that I scribed these orders for the physician. Additional Orders: Follow-Up Appointments Return Appointment: - - One week. Other information: If you develop fever, chills, increased pain, drainage, redness or swelling please call our office. If after hours, respond to the ER. Should you experience any significant changes in your wound (s) or have any questions regarding your home care instructions please contact the wound center @ . If after hours, contact your primary care physician or go to the hospital emergency room. I've reviewed the clinician's documentation and agree with the evaluation and plan as written. In addition the patient's wound demonstrates evidence of non-viable devitalized tissue which will continue to benefit from sharp debridement to help promote granulation and expedite healing. Also, the patient understands her wound healing is significantly delayed due to her chronic use of prednisone. Electronic Signature(s) Signed By: Date: Jovon Tadeo MD 10/27/2017 17:46:20 Entered By: Jovon Tadeo on 10/27/2017 17:44:22
== END ==
PROVIDERS: Family Provider Physician Assistant; PCP Physician Assistant; Visit Provider Internal Medicine
DX: S81.802A Unspecified open wound, left lower leg, initial encounter (principal); Z79.52 Long term (current) use of systemic steroids
CPT/HCPCS: 11042

== ENCOUNTER → 2017-11-04 13:01 | Outpatient (CLI) | payer MEDICARE, OTHER, SELFPAY ==
--- NOTE | 2017-11-04 | OV.WND_ITS ---
Progress Note Details Patient Name: Priscilla Mahan Patient Number: [id number] PatientPatientDate: 11/04/2017 Clinician: Paola Pfeiffer Clinician Cosigner: Dennise Pereira Physician / Manager Corporate Communications: Jovon Tadeo SUBJECTIVE Chief Complaint This information was obtained from the patient Trauma wound to left lateral leg. Allergies penicillin (Reaction: unkown), Sulfa (Sulfonamide Antibiotics) (Reaction: unknown), Iodinated Contrast Media - Oral and IV Dye (Reaction: rapid heartrate), latex (Severity: Moderate, Reaction: rash) HPI This information was obtained from the patient The following HPI elements were documented for the patient's wound: Location: left leg Quality: trauma new wound hit on car door Severity: mild Duration: 10 days Modifying Factors: ITP, use of Prednisone QD 11/04/17. Seen by Dr. Tadeo. The patient reports minimal discomfort associated with the chronic left lower leg trauma wound since her last visit. She also has a new right lower leg biopsy site her radio operator has asked that we review noting her history of very slow wound healing due to chronic prednisone use treating ITP. 10/27/17. Seen by Dr. Tadeo. The patient reports minimal discomfort associated with the chronic left lower leg trauma wound since her last visit and she has been applying topical gentamicin for chronic wound infection as recommended. 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 10/20/17. Seen by Dr. Tadeo. The patient reports minimal discomfort associated with the chronic left lower leg trauma wound since her last visit and she has been applying topical gentamicin for chronic wound infection as recommended. 10/14/17. Seen by Dr. Tadeo. The patient reports some continued pain associated with the lower leg trauma wound. Her wound culture from last week grew a coag negative Staph and she's not currently on antibiotics. 10/09/17. Seen by Dr. Tadeo. The patient returns to clinic with a new left lower leg trauma wound that occurred about one month ago and started as a bruise but has since started to deteriorate and drain a bit. She reports only minimal pain at the site and has not been on antibiotics. 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 She's also been given a prescription for Keflex however has not had this fill yet. 07/16/16. Seen by Brook Prasad PA-C. The patient reports no drainage from her left lower leg wound since her last evaluation. 07/02/16. Seen by Georges Prasad PA-C. The patient reports minimal drainage from her leg wound. 06/25/16. Seen by Georges Prasad PA-C. The patient reports further decreased drainage from her lower leg wound. 06/17/16. Seen by Georges Prasad PA-C. The patient reports decreased drainage from her lower leg wound since her last evaluation. 06/14/16. Seen by Dr. Tadeo. The patient reports minimal discomfort associated with the chronic left lower leg trauma wound since her last visit and she has been applying topical gentamicin for chronic wound infection as recommended. 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 06/05/16. Seen by Dr. Tadeo. The patient reports continued but decreasing burning associated with the chronic left lower leg trauma wound since her last visit when it was noted the wound had deteriorated considerably. She's been applying topical gentamicin for an presumed infection and reports less drainage and has had no fevers. Of note, she continues on prednisone for idiopathic thrombocytopenia. 05/31/16. Seen by Dr. Tadeo. The patient reports some continued burning and drainage associated with the chronic left lower leg trauma wound over the past week. 05/22/16. Seen by Dr. Tadeo. The patient returns to clinic following a trip to [place] where she saw a wound care provider. She states there's been no change with her management and she does not report significant pain nor drainage associated with the chronic left lower leg trauma wound since her last visit at the end of April. She is also seen by general surgery felt there is no need to evacuate the hematoma at that time.She also continues on prednisone for her thrombocytopenia and understands that this has been significantly impacting her wound healing. 05/02/16. Seen by Dr. Tadeo. The patient reports some mild pain at the site of the left lower leg trauma wound and associated hematoma. She does not report significant drainage from the site nor fevers or feeling unwell in general. Of note, her condition is complicated by long-term use of prednisone to treat idiopathic thrombocytopenia. Her platelet count on 04/29/16 was 94. 04/18/16. Seen by Dr. Tadeo. The patient does not report pain nor significant drainage associated with the chronic left lower leg trauma wound and states that the soft tissue swelling which is a hematoma has decreased considerably over the past few weeks. 04/11/16. Seen by Dr. Tadeo. The patient continues to report some mild discomfort associated with the left posterior lower leg trauma wound and associated hematoma. She states there is only minimal drainage associated with the nonpressure ulcers at the site. 04/03/16. Seen by Dr. Tadeo. The patient has been seen previously in our clinic about 3 years ago and presents today with a new small wound in the posterior left lower leg that resulted following a traumatic injury to the area about 3 weeks ago. She complains of swelling and bruising at the site does not report any significant drainage, redness, or fevers. Of note she carries a diagnosis of idiopathic thrombocytopenia and has been on chronic steroid therapy for many years. States banged left leg on June 24 on her 's toenail. It was larger than it is now. Been putting Neosporin on it and left open to air. 08/07/12 Progressing OK. Is geting all wound care in clinic. 08/11/12 states clipped left leg with sandal 2 days ago and has new hematoma. Dressing remains from Friday. States that she feels wound has been more painful.08/25 Pt states burning in leg was terrible yesterday and the leg felt warm. Pt states it feels better today but she still feels a burning. 09/07/12 States tried her support socks this week but just gets new bruises. Frustrating! Changed dressing x 1 this week. States feels is improving 09/15/12 no new complaints 09/24/12 Patient removed dressing yesterday because the wound was tingling and she feels the wound looked different. Patient states that it is yellow around the wound 10/13/12 Skin tear noted from car door on 10/04/12. PT old wound left leg continues to be healed. 11/10/2012- No new problems or complaints. Wound his covered in dark red scab. Patient applying triamcinolone cream to legs once daily. 05/05/13 Patient injured medial part of right lower leg in March. States it has a blister and has not resolved. Appears now as a buise. Injured lateral right leg a few days ago on her bed. Also appears as a red, purple bruise Past Medical History This information was obtained from the patient Patient has a medical history of: Idiopathic Thrombocytopenic Purpura - 07/11/2006 Hypertension Atrial Flutter Osteoporosis Anxiety Microscopic hematuria Scoliosis Complaints and Symptoms This information was obtained from the patient Patient complains of: General Notes: I have reviewed and concur with the Review of Systems and Past Family Social History documents completed by the clinician, I have reviewed and concur with the Wound Assessment document completed by the clinician Cardiovascular (Central/Peripheral): Edema Hematologic/Lymphatic: Bruising, Bleeding / Clotting Disorders, Bleeding Tendency Integumentary (Hair/Skin/Nails): Open Sore Prior Wound History: Drainage, Erythema, Pain Patient denies complaints or symptoms related to: Cardiovascular (Central): Irregular heart beat Cardiovascular (Central/Peripheral): Intermittent Claudication, Lower extremity (leg) resting pain, Lower extremity (leg) swelling Constitutional Symptoms (General Health): Chills, Fever Endocrine: Polydypsia (Excessive Thirst), Polyuria (Excessive Urination) Gastrointestinal (GI): Nausea / Vomiting, Stomach/abdominal pain Genitourinary (): Urinary Incontinence Musculoskeletal: Assistive Devices, Deformities Neurological: Abnormal Gait, Loss of Protective Sensation Prior Wound History: Bleeding, Malodor Psychiatric: Depression, Memory Loss Respiratory: Oxygen Use, Shortness of Breath OBJECTIVE Constitutional BP elevated; Afebrile; Alert and in no distress. Well developed. Alert. Clean appearing.. Height/Length: 65 in (165.1 cm), Weight: 124.8 lbs (56.73 kgs), BMI: 20.8, Temperature: 98.3 ?F ( 36.83 ?C), Pulse: 79 bpm, Respiratory Rate: 18 breaths/min, Blood Pressure: 138/75 mmHg, Pulse Oximetry: 97 %. Respiratory: No respiratory distress. Even respirations and without use of accessory muscles.. Cardiovascular: Affected extremity exhibits no peripheral edema or cyanosis, is warm, and is well perfused. Capillary refill is less than 2 seconds. Integumentary (Hair, Skin) No periwound erythema, warmth, or significant drainage. No periwound rashes appreciated or noted otherwise.. Refer to appropriate clinician wound documentation for this visit; left lower leg ulcer extends to subcut with base partially covered with pink granulation, remainder fibrin and slough; right lower leg wound extends to subcut, no signs of infection. Wound #4 Left, Lateral Leg is an acute Partial Thickness Trauma Wound and has received a status of Not Healed. Subsequent wound encounter measurements are 1.4cm length x 1.1cm width x 0.1cm depth, with an area of 1.54 sq cm and a volume of 0.154 cubic cm. Hypergranulation was noted. No tunneling has been noted. No sinus tract has been noted. No undermining has been noted. There is a small amount of serosanguineous drainage noted which has no odor. The patient reports a wound pain of level 0/10. The wound margin is attached. Wound bed has No epithelialization, No eschar, Yes slough, Yes bright red, pink, firm granulation. The periwound skin texture is normal. The periwound skin moisture is normal. The periwound skin exhibited: Hemosiderosis. The periwound skin did not exhibit: Atrophie Bess, Cyanosis, Ecchymosis, Erythema, Pallor, Rubor. The temperature of the periwound skin is WNL. Periwound skin does not exhibit signs or symptoms of infection. Local Pulse is Palpable. Neurological: Cranial nerves grossly intact with symmetric function normal by informal observation.. ASSESSMENT Active Problems ICD-10 (Encounter Diagnosis) S81.802D - Unspecified open wound, left lower leg, subsequent encounter (Encounter Diagnosis) Z79.52 - half-way (current) use of systemic steroids (Encounter Diagnosis) S81.801D - Unspecified open wound, right lower leg, subsequent encounter PROCEDURES Wound #4 Wound #4 (Trauma Wound) is located on the left, lateral leg. A skin/ subcutaneous tissue level surgical debridement with a total area debrided of 1.54 sq cm was performed by Jovon Tadeo MD. Subcutaneous was removed along with devitalized tissue: slough. The following instrument(s) were used: curette. Pain control was achieved using 4% Lido. A time out was conducted prior to the start of the procedure. A minimal amount of bleeding was controlled with pressure. The procedure was tolerated well with a pain level of 0 throughout and a pain level of 0 following the procedure. Post Debridement Measurements: 1.4cm length x 1.1cm width x 0.2cm depth; with an area of 1.54 sq cm and a volume of 0.308 cubic cm; Additional Information Muscle fascia or bone removed and sent to pathology?: No PLAN Wound Orders: Wound #4 Left, Lateral Leg Anesthetic Topical Xylocaine to wound bed. - In clinic only. Cleanser Cleanse Wound: - Normal saline and gauze, may use distilled water at home. May Shower. - Please protect in shower, using cast protector or plastic bag. Dressings Primary dressing: - Triple antibiotic ointmentm Cover and secure with: - Border Foam Change Dressing: - Every other day. Compression/Edema Control Elevation of leg(s) above the level of the heart when sitting. Avoid prolonged standing in one place. Single Layer Compression Hose - Tetra F Scribing Attestation I attest, as the nurse, that I scribed these orders for the physician. Additional Orders: Follow-Up Appointments Return Appointment: - - One week. Other information: If you develop fever, chills, increased pain, drainage, redness or swelling please call our office. If after hours, respond to the ER. Should you experience any significant changes in your wound (s) or have any questions regarding your home care instructions please contact the wound center @ [phone]. If after hours, contact your primary care physician or go to the hospital emergency room. I've reviewed the clinician's documentation and agree with the evaluation and plan as written. In addition, the patient's ulcer demonstrates evidence of non-viable devitalized tissue which will continue to benefit from sharp debridement to help promote granulation and expedite healing. Electronic Signature(s) Signed By: Date: Jovon Tadeo MD 11/05/2017 13:52:56 Entered By: Jovon Tadeo on 11/05/2017 12:32:18
== END ==
PROVIDERS: Family Provider Physician Assistant; PCP Physician Assistant; Visit Provider Internal Medicine
DX: Z79.52 Long term (current) use of systemic steroids (principal); S81.802A Unspecified open wound, left lower leg, initial encounter
CPT/HCPCS: 11042

== ENCOUNTER → 2017-11-08 07:56 | Outpatient (CLI) | payer MEDICARE, OTHER, SELFPAY ==
[2017-11-08 09:33] LABS: Add Manual Diff / Slide Review NO; Basophils Percent Auto 2.7 % (0-2); Eosinophils Percent Auto 3.7 % (2-4); Hematocrit 38.4 % (36-46); Hemoglobin 13.1 g/dL (12.0-16.0); Lymphocytes Percent Auto 36.9 % (25-40); Mean Corpuscular HGB Conc 34.1 % (30-36); Mean Corpuscular Hemoglobin 32.6 PG (26-34); Mean Corpuscular Volume 95.6 fL (80-100); Monocytes Percent Auto 9.3 % (3-14); Neutrophils Absolute Auto 3700 /uL (3000-5900); Neutrophils Percent Auto 47.4 % (50-75); Platelet Count 96 X10^3/uL (150-400); Red Blood Cell Count 4.01 X10^6/uL (4.0-5.2); Red Cell Distribution Width 14.3 % (11.6-14.8); White Blood Cell Count 7.8 X10^3/uL (4.5-11.0)
== END ==
PROVIDERS: Family Provider Physician Assistant; PCP Physician Assistant; Visit Provider Internal Medicine Hematology
DX: D69.3 Immune thrombocytopenic purpura (principal)
CPT/HCPCS: 36415; 85025

== ENCOUNTER → 2017-11-13 08:34 | Outpatient (CLI) | payer MEDICARE, OTHER, SELFPAY ==
--- NOTE | 2017-11-13 | OV.WND_ITS ---
Progress Note Details Patient Name: Priscilla Mahan Patient Number: [id number] PatientPatientDate: 11/13/2017 Clinician: Pinky Meyers Clinician Cosigner: Dennise Pereira Physician / Promotional Marketing Analyst: Jovon Tadeo SUBJECTIVE Chief Complaint This information was obtained from the patient Trauma wound to left lateral leg. Allergies penicillin (Reaction: unkown), Sulfa (Sulfonamide Antibiotics) (Reaction: unknown), Iodinated Contrast Media - Oral and IV Dye (Reaction: rapid heartrate), latex (Severity: Moderate, Reaction: rash) HPI This information was obtained from the patient The following HPI elements were documented for the patient's wound: Location: left leg Quality: trauma new wound hit on car door Severity: mild Duration: 10 days Modifying Factors: ITP, use of Prednisone QD 11/13/17. Seen by Dr. Tadeo. The patient does not report pain nor significant drainage associated with the chronic left lower leg trauma wound since her last visit. 11/04/17. Seen by Dr. Tadeo. The patient reports minimal discomfort associated with the chronic left lower leg trauma wound since her last visit. She also has a new right lower leg biopsy site her paperhanger pipe has asked that we review noting her history of very slow wound healing due to chronic prednisone use treating ITP. 10/27/17. Seen by Dr. Tadeo. The patient reports minimal discomfort associated with the chronic left lower leg trauma wound since her last visit and she has been applying topical gentamicin for chronic wound infection as recommended. 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 10/20/17. Seen by Dr. Tadeo. The patient reports minimal discomfort associated with the chronic left lower leg trauma wound since her last visit and she has been applying topical gentamicin for chronic wound infection as recommended. 10/14/17. Seen by Dr. Tadeo. The patient reports some continued pain associated with the lower leg trauma wound. Her wound culture from last week grew a coag negative Staph and she's not currently on antibiotics. 10/09/17. Seen by Dr. Tadeo. The patient returns to clinic with a new left lower leg trauma wound that occurred about one month ago and started as a bruise but has since started to deteriorate and drain a bit. She reports only minimal pain at the site and has not been on antibiotics. 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 She's also been given a prescription for Keflex however has not had this fill yet. 07/16/16. Seen by Brook Prasad PA-C. The patient reports no drainage from her left lower leg wound since her last evaluation. 07/02/16. Seen by Georges Prasad PA-C. The patient reports minimal drainage from her leg wound. 06/25/16. Seen by Georges Prasad PA-C. The patient reports further decreased drainage from her lower leg wound. 06/17/16. Seen by Georges Prasad PA-C. The patient reports decreased drainage from her lower leg wound since her last evaluation. 06/14/16. Seen by Dr. Tadeo. The patient reports minimal discomfort associated with the chronic left lower leg trauma wound since her last visit and she has been applying topical gentamicin for chronic wound infection as recommended. 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 06/05/16. Seen by Dr. Tadeo. The patient reports continued but decreasing burning associated with the chronic left lower leg trauma wound since her last visit when it was noted the wound had deteriorated considerably. She's been applying topical gentamicin for an presumed infection and reports less drainage and has had no fevers. Of note, she continues on prednisone for idiopathic thrombocytopenia. 05/31/16. Seen by Dr. Tadeo. The patient reports some continued burning and drainage associated with the chronic left lower leg trauma wound over the past week. 05/22/16. Seen by Dr. Tadeo. The patient returns to clinic following a trip to [place] where she saw a wound care provider. She states there's been no change with her management and she does not report significant pain nor drainage associated with the chronic left lower leg trauma wound since her last visit at the end of April. She is also seen by general surgery felt there is no need to evacuate the hematoma at that time.She also continues on prednisone for her thrombocytopenia and understands that this has been significantly impacting her wound healing. 05/02/16. Seen by Dr. Tadeo. The patient reports some mild pain at the site of the left lower leg trauma wound and associated hematoma. She does not report significant drainage from the site nor fevers or feeling unwell in general. Of note, her condition is complicated by long-term use of prednisone to treat idiopathic thrombocytopenia. Her platelet count on 04/29/16 was 94. 04/18/16. Seen by Dr. Tadeo. The patient does not report pain nor significant drainage associated with the chronic left lower leg trauma wound and states that the soft tissue swelling which is a hematoma has decreased considerably over the past few weeks. 04/11/16. Seen by Dr. Tadeo. The patient continues to report some mild discomfort associated with the left posterior lower leg trauma wound and associated hematoma. She states there is only minimal drainage associated with the nonpressure ulcers at the site. 04/03/16. Seen by Dr. Tadeo. The patient has been seen previously in our clinic about 3 years ago and presents today with a new small wound in the posterior left lower leg that resulted following a traumatic injury to the area about 3 weeks ago. She complains of swelling and bruising at the site does not report any significant drainage, redness, or fevers. Of note she carries a diagnosis of idiopathic thrombocytopenia and has been on chronic steroid therapy for many years. States banged left leg on June 24 on her 's toenail. It was larger than it is now. Been putting Neosporin on it and left open to air. 08/07/12 Progressing OK. Is geting all wound care in clinic. 08/11/12 states clipped left leg with sandal 2 days ago and has new hematoma. Dressing remains from Friday. States that she feels wound has been more painful.08/25 Pt states burning in leg was terrible yesterday and the leg felt warm. Pt states it feels better today but she still feels a burning. 09/07/12 States tried her support socks this week but just gets new bruises. Frustrating! Changed dressing x 1 this week. States feels is improving 09/15/12 no new complaints 09/24/12 Patient removed dressing yesterday because the wound was tingling and she feels the wound looked different. Patient states that it is yellow around the wound 10/13/12 Skin tear noted from car door on 10/04/12. PT old wound left leg continues to be healed. 11/10/2012- No new problems or complaints. Wound his covered in dark red scab. Patient applying triamcinolone cream to legs once daily. 05/05/13 Patient injured medial part of right lower leg in March. States it has a blister and has not resolved. Appears now as a buise. Injured lateral right leg a few days ago on her bed. Also appears as a red, purple bruise Family History This information was obtained from the patient Cancer - Father, Sibling, Heart Disease - Mother, Sibling, Hypertension - Mother , Sibling, Lung Disease - Sibling, Stroke - Maternal Grandparents Social History This information was obtained from the patient Former smoker - quit 1983, Alcohol Use - glass several times a week, Caffeine Use - 1 per day, Children - 2 daughters, Lives in - Private home, Marital Status - , Retired Past Medical History This information was obtained from the patient Patient has a medical history of: Idiopathic Thrombocytopenic Purpura - 07/11/2006 Hypertension Atrial Flutter Osteoporosis Anxiety Microscopic hematuria Scoliosis Surgical History This information was obtained from the patient Patient has a surgical history of: 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 Tonsilectomy Hysterectomy MOHS Multiple cancer removals Complaints and Symptoms This information was obtained from the patient Patient complains of: General Notes: I have reviewed and concur with the Review of Systems and Past Family Social History documents completed by the clinician, I have reviewed and concur with the Wound Assessment document completed by the clinician Cardiovascular (Central/Peripheral): Edema Hematologic/Lymphatic: Bruising, Bleeding / Clotting Disorders, Bleeding Tendency Integumentary (Hair/Skin/Nails): Open Sore Prior Wound History: Drainage, Erythema, Pain Patient denies complaints or symptoms related to: Cardiovascular (Central): Irregular heart beat Cardiovascular (Central/Peripheral): Intermittent Claudication, Lower extremity (leg) resting pain, Lower extremity (leg) swelling Constitutional Symptoms (General Health): Chills, Fever Endocrine: Polydypsia (Excessive Thirst), Polyuria (Excessive Urination) Gastrointestinal (GI): Nausea / Vomiting, Stomach/abdominal pain Genitourinary (): Urinary Incontinence Musculoskeletal: Assistive Devices, Deformities Neurological: Abnormal Gait, Loss of Protective Sensation Prior Wound History: Bleeding, Malodor Psychiatric: Depression, Memory Loss Respiratory: Oxygen Use, Shortness of Breath OBJECTIVE Constitutional Vital signs reviewed and noted. Well developed. Alert. Clean appearing.. Height/ Length: 65 in (165.1 cm), Weight: 126.4 lbs (57.45 kgs), BMI: 21, Temperature: 97.2 ?F (36.22 ?C), Pulse: 73 bpm, Respiratory Rate: 18 breaths/min, Blood Pressure: 138/80 mmHg, Pulse Oximetry: 98 %. Ears, Nose, Mouth, and Throat: No clinically significant hearing loss on informal examination. Cardiovascular: 1+ left lower extremity edema. Integumentary (Hair, Skin) No periwound erythema, warmth, or significant drainage. No periwound rashes appreciated or noted otherwise.. Refer to appropriate clinician wound documentation for this visit; left lower leg wound extends to subcut with base partially covered with pink granulation, remainder fibrin and slough. Wound #4 Left, Lateral Leg is an acute Venous Ulcer and has received a status of Not Healed. Subsequent wound encounter measurements are 1.5cm length x 1.3cm width x 0.1cm depth, with an area of 1.95 sq cm and a volume of 0.195 cubic cm. Hypergranulation was noted. No tunneling has been noted. No sinus tract has been noted. No undermining has been noted. There is a small amount of serosanguineous drainage noted which has no odor. The patient reports a wound pain of level 0/ 10. The wound margin is attached. Wound bed has No epithelialization, No eschar, Yes slough, Yes bright red, pink, firm granulation. The periwound skin texture is normal. The periwound skin moisture is normal. The periwound skin exhibited: Hemosiderosis. The periwound skin did not exhibit: Atrophie [place], Cyanosis, Ecchymosis, Erythema, Pallor, Rubor. The temperature of the periwound skin is WNL. Periwound skin does not exhibit signs or symptoms of infection. Local Pulse is Palpable. General Notes: Wound 4 shown in picture Neurological: Cranial nerves grossly intact with symmetric function normal by informal observation.. ASSESSMENT Active Problems ICD-10 (Encounter Diagnosis) S81.802D - Unspecified open wound, left lower leg, subsequent encounter (Encounter Diagnosis) S81.801D - Unspecified open wound, right lower leg, subsequent encounter PROCEDURES Wound #4 Wound #4 (Venous Ulcer) is located on the left, lateral leg. A skin/ subcutaneous tissue level surgical debridement with a total area debrided of 1.95 sq cm was performed by Jovon Tadeo MD. Subcutaneous was removed along with devitalized tissue: slough. The following instrument(s) were used: curette. Pain control was achieved using 4% Lido. A time out was conducted prior to the start of the procedure. A minimal amount of bleeding was controlled with n/a. The procedure was tolerated well with a pain level of 0 throughout and a pain level of 0 following the procedure. Post Debridement Measurements: 1.5cm length x 1.3cm width x 0.2cm depth; with an area of 1.95 sq cm and a volume of 0.39 cubic cm; Additional Information Muscle fascia or bone removed and sent to pathology?: No PLAN Wound Orders: Wound #4 Left, Lateral Leg Anesthetic Topical Xylocaine to wound bed. - In clinic only. Cleanser Cleanse Wound: - Normal saline and gauze, may use distilled water at home. May Shower. - Please protect in shower, using cast protector or plastic bag. Dressings Cover and secure with: - Border Foam Change Dressing: - Every other day. Compression/Edema Control Elevation of leg(s) above the level of the heart when sitting. Avoid prolonged standing in one place. Single Layer Compression Hose Scribing Attestation I attest, as the nurse, that I scribed these orders for the physician. Additional Orders: Follow-Up Appointments Return Appointment: - - One week. Other information: If you develop fever, chills, increased pain, drainage, redness or swelling please call our office. If after hours, respond to the ER. Should you experience any significant changes in your wound (s) or have any questions regarding your home care instructions please contact the wound center @ [phone]. If after hours, contact your primary care physician or go to the hospital emergency room. I've reviewed the clinician's documentation and agree with the evaluation and plan as written. In addition the patient's wound demonstrates evidence of non-viable devitalized tissue which will continue to benefit from sharp debridement to help promote granulation and expedite healing. Electronic Signature(s) Signed By: Date: Jovon Tadeo MD 11/14/2017 09:38:07 Entered By: Jovon Tadeo on 11/14/2017 09:35:17
== END ==
PROVIDERS: Family Provider Physician Assistant; PCP Physician Assistant; Visit Provider Internal Medicine
DX: I87.312 Chronic venous hypertension (idiopathic) with ulcer of left lower extremity (principal); L97.822 Non-pressure chronic ulcer of other part of left lower leg with fat layer exposed
CPT/HCPCS: 11042

== ENCOUNTER → 2017-11-20 08:42 | Outpatient (CLI) | payer MEDICARE, OTHER, SELFPAY | PROVIDERS: Family Provider Physician Assistant; PCP Physician Assistant; Visit Provider Family Medicine | DX: I87.312 Chronic venous hypertension (idiopathic) with ulcer of left lower extremity (principal); L97.821 Non-pressure chronic ulcer of other part of left lower leg limited to breakdown of skin | CPT/HCPCS: 97597; 99213 ==

== ENCOUNTER → 2017-11-27 09:38 | Outpatient (CLI) | payer MEDICARE, OTHER, SELFPAY ==
[2017-11-27 10:02] LABS: Add Manual Diff / Slide Review NO; Basophils Percent Auto 1.8 % (0-2); Eosinophils Percent Auto 2.4 % (2-4); Hematocrit 40.5 % (36-46); Hemoglobin 13.7 g/dL (12.0-16.0); Mean Corpuscular HGB Conc 33.9 % (30-36); Mean Corpuscular Hemoglobin 32.8 PG (26-34); Mean Corpuscular Volume 96.8 fL (80-100); Monocytes Percent Auto 7.5 % (3-14); Neutrophils Absolute Auto 5800 /uL (3000-5900); Neutrophils Percent Auto 57.3 % (50-75); Platelet Count 88 X10^3/uL (150-400); Red Blood Cell Count 4.19 X10^6/uL (4.0-5.2); Red Cell Distribution Width 14.2 % (11.6-14.8); White Blood Cell Count 10.1 X10^3/uL (4.5-11.0)
== END ==
PROVIDERS: Family Provider Physician Assistant; PCP Physician Assistant; Visit Provider Internal Medicine Hematology
DX: Z86.2 Personal history of diseases of the blood and blood-forming organs and certain disorders involving the immune mechanism (principal)
CPT/HCPCS: 36415; 85025

== ENCOUNTER → 2017-11-27 09:52 | Outpatient (CLI) | payer MEDICARE, OTHER, SELFPAY | PROVIDERS: Family Provider Physician Assistant; PCP Physician Assistant; Visit Provider Family Medicine | DX: I87.312 Chronic venous hypertension (idiopathic) with ulcer of left lower extremity (principal); L97.822 Non-pressure chronic ulcer of other part of left lower leg with fat layer exposed | CPT/HCPCS: 99213 ==

== ENCOUNTER → 2017-12-22 08:57 | Outpatient (CLI) | payer MEDICARE, OTHER, SELFPAY | PROVIDERS: Family Provider Physician Assistant; PCP Physician Assistant; Visit Provider Family Medicine | DX: I87.2 Venous insufficiency (chronic) (peripheral) (principal); L97.812 Non-pressure chronic ulcer of other part of right lower leg with fat layer exposed; L97.821 Non-pressure chronic ulcer of other part of left lower leg limited to breakdown of skin | CPT/HCPCS: 97597 ==

== ENCOUNTER → 2017-12-22 09:57 | Outpatient (CLI) | payer MEDICARE, OTHER, SELFPAY ==
[2017-12-22 10:58] LABS: Add Manual Diff / Slide Review NO; Eosinophils Percent Auto 2.5 % (2-4); Hematocrit 40.8 % (36-46); Hemoglobin 13.9 g/dL (12.0-16.0); Lymphocytes Percent Auto 23.5 % (25-40); Mean Corpuscular HGB Conc 34.1 % (30-36); Mean Corpuscular Hemoglobin 32.6 PG (26-34); Mean Corpuscular Volume 95.5 fL (80-100); Monocytes Percent Auto 6.7 % (3-14); Neutrophils Absolute Auto 7300 /uL (3000-5900); Neutrophils Percent Auto 65.3 % (50-75); Platelet Count 58 X10^3/uL (150-400); Red Blood Cell Count 4.27 X10^6/uL (4.0-5.2); Red Cell Distribution Width 14.5 % (11.6-14.8); White Blood Cell Count 11.2 X10^3/uL (4.5-11.0)
== END ==
PROVIDERS: Family Provider Physician Assistant; PCP Physician Assistant; Visit Provider Internal Medicine Hematology
DX: D69.3 Immune thrombocytopenic purpura (principal)
CPT/HCPCS: 36415; 85025

== ENCOUNTER → 2018-01-12 08:55 | Outpatient (CLI) | payer MEDICARE, OTHER, SELFPAY | PROVIDERS: Family Provider Physician Assistant; PCP Physician Assistant; Visit Provider Family Medicine | DX: L97.811 Non-pressure chronic ulcer of other part of right lower leg limited to breakdown of skin (principal); I87.311 Chronic venous hypertension (idiopathic) with ulcer of right lower extremity; Z48.817 Encounter for surgical aftercare following surgery on the skin and subcutaneous tissue | CPT/HCPCS: 97597 ==

== ENCOUNTER → 2018-01-12 10:08 | Outpatient (CLI) | payer MEDICARE, OTHER, SELFPAY ==
[2018-01-12 10:44] LABS: Add Manual Diff / Slide Review NO; Basophils Percent Auto 1.2 % (0-2); Hematocrit 41.3 % (36-46); Hemoglobin 14.2 g/dL (12.0-16.0); Lymphocytes Percent Auto 33.4 % (25-40); Mean Corpuscular HGB Conc 34.3 % (30-36); Mean Corpuscular Volume 96.3 fL (80-100); Neutrophils Absolute Auto 5500 /uL (3000-5900); Neutrophils Percent Auto 54.4 % (50-75); Red Blood Cell Count 4.29 X10^6/uL (4.0-5.2); Red Cell Distribution Width 14.2 % (11.6-14.8); White Blood Cell Count 10.1 X10^3/uL (4.5-11.0)
[2018-01-12 11:14] LABS: Platelet Count 32 X10^3/uL (150-400)
[2018-01-12 11:59] LABS: Anisocytosis 1+; Poikilocytosis 1+
[2018-01-12 17:41] LABS: HEMOLYSIS < 15 (0-50); Iron 144 ug/dL (37-170)
[2018-01-12 17:52] LABS: Percent Iron Saturation 54 % (15-50); Total Iron Binding Capacity 267 ug/dL (265-497); Transferrin 243 mg/dL (206-381)
[2018-01-12 17:58] LABS: Prolactin 8.6 ng/mL (3.0-18.6)
[2018-01-12 17:59] LABS: T4 Total Thyroxine 7.03 ug/dL (5.5-11.0)
[2018-01-12 18:00] LABS: Vitamin D 25 Hydroxy (D3) 50.7 ng/mL (30.0-100.0)
[2018-01-12 18:12] LABS: Thyroid Stimulating Hormone 0.86 uIU/mL (0.47-4.68)
[2018-01-12 18:21] LABS: Erythrocyte Sedimentation Rate 2 MM/HR (0-20)
[2018-01-12 18:46] LABS: Folate 11.6 ng/mL (2.76-20.0)
[2018-01-14 14:33] LABS: RPR Screen Nonreactive (Nonreactive)
[2018-01-14 15:28] LABS: Zinc 78 mcg/dL (60-130)
[2018-01-14 22:01] LABS: Testosterone, Free 0.04 ng/dL
[2018-01-15 13:50] LABS: Dehydroepiandrosterone Sulfate 9 mcg/dL (7-177)
== END ==
PROVIDERS: Family Provider Physician Assistant; PCP Physician Assistant; Visit Provider Internal Medicine Hematology
DX: D69.3 Immune thrombocytopenic purpura (principal); L65.9 Nonscarring hair loss, unspecified
CPT/HCPCS: 36415; 82306; 82627; 82728; 82746; 83540; 83550; 84146; 84402; 84436; 84443; 84630; 85025; 85651; 86592

== ENCOUNTER → 2018-01-19 08:55 | Outpatient (CLI) | payer MEDICARE, OTHER, SELFPAY | PROVIDERS: Family Provider Physician Assistant; PCP Physician Assistant; Visit Provider Family Medicine | DX: I87.311 Chronic venous hypertension (idiopathic) with ulcer of right lower extremity (principal); L97.812 Non-pressure chronic ulcer of other part of right lower leg with fat layer exposed | CPT/HCPCS: 99213 ==

== ENCOUNTER → 2018-01-19 09:31 | Outpatient (CLI) | payer MEDICARE, OTHER, SELFPAY ==
[2018-01-19 10:01] LABS: Add Manual Diff / Slide Review NO; Basophils Percent Auto 0.8 % (0-2); Eosinophils Percent Auto 0.8 % (2-4); Hematocrit 40.1 % (36-46); Hemoglobin 13.9 g/dL (12.0-16.0); Lymphocytes Percent Auto 9.9 % (25-40); Mean Corpuscular HGB Conc 34.6 % (30-36); Mean Corpuscular Hemoglobin 32.9 PG (26-34); Mean Corpuscular Volume 94.9 fL (80-100); Monocytes Percent Auto 4.2 % (3-14); Neutrophils Absolute Auto 16500 /uL (3000-5900); Neutrophils Percent Auto 84.3 % (50-75); Platelet Count 55 X10^3/uL (150-400); Red Blood Cell Count 4.23 X10^6/uL (4.0-5.2); Red Cell Distribution Width 14.2 % (11.6-14.8); White Blood Cell Count 19.6 X10^3/uL (4.5-11.0)
== END ==
PROVIDERS: Family Provider Physician Assistant; PCP Physician Assistant; Visit Provider Internal Medicine Hematology
DX: D69.3 Immune thrombocytopenic purpura (principal)
CPT/HCPCS: 36415; 85025

== ENCOUNTER → 2018-01-26 08:58 | Outpatient (CLI) | payer MEDICARE, OTHER, SELFPAY | PROVIDERS: Family Provider Physician Assistant; PCP Physician Assistant; Visit Provider Family Medicine | DX: I87.311 Chronic venous hypertension (idiopathic) with ulcer of right lower extremity (principal); L97.812 Non-pressure chronic ulcer of other part of right lower leg with fat layer exposed | CPT/HCPCS: 97597 ==

== ENCOUNTER → 2018-02-06 10:40 | Outpatient (CLI) | payer MEDICARE, OTHER, SELFPAY ==
[2018-02-06 10:57] LABS: Add Manual Diff / Slide Review NO; Basophils Percent Auto 1.6 % (0-2); Eosinophils Percent Auto 2.8 % (2-4); Hemoglobin 13.5 g/dL (12.0-16.0); Lymphocytes Percent Auto 35.5 % (25-40); Mean Corpuscular HGB Conc 34.5 % (30-36); Mean Corpuscular Hemoglobin 33.1 PG (26-34); Monocytes Percent Auto 7.1 % (3-14); Neutrophils Absolute Auto 5200 /uL (1500-7000); Red Blood Cell Count 4.07 X10^6/uL (4.0-5.2); Red Cell Distribution Width 14.3 % (11.6-14.8); White Blood Cell Count 9.8 X10^3/uL (4.5-11.0)
[2018-02-06 11:02] LABS: Platelet Count 30 X10^3/uL (150-400)
[2018-02-06 11:14] LABS: Platelet Estimate Decreased on smear
== END ==
PROVIDERS: Family Provider Physician Assistant; PCP Physician Assistant; Visit Provider Internal Medicine Hematology
DX: D69.3 Immune thrombocytopenic purpura (principal)
CPT/HCPCS: 36415; 85025

== ENCOUNTER → 2018-02-17 09:39 | Outpatient (CLI) | payer MEDICARE, OTHER, SELFPAY ==
[2018-02-17 09:59] LABS: Add Manual Diff / Slide Review NO; Basophils Percent Auto 1.4 % (0-2); Eosinophils Percent Auto 2.8 % (2-4); Hematocrit 41.5 % (36-46); Hemoglobin 14.3 g/dL (12.0-16.0); Lymphocytes Percent Auto 33.5 % (25-40); Mean Corpuscular HGB Conc 34.5 % (30-36); Mean Corpuscular Hemoglobin 33.5 PG (26-34); Mean Corpuscular Volume 96.9 fL (80-100); Monocytes Percent Auto 9.7 % (3-14); Neutrophils Absolute Auto 5600 /uL (1500-7000); Neutrophils Percent Auto 52.6 % (50-75); Platelet Count 100 X10^3/uL (150-400); Red Blood Cell Count 4.28 X10^6/uL (4.0-5.2); Red Cell Distribution Width 14.2 % (11.6-14.8); White Blood Cell Count 10.6 X10^3/uL (4.5-11.0)
== END ==
PROVIDERS: Family Provider Physician Assistant; PCP Physician Assistant; Visit Provider Internal Medicine Hematology
DX: D69.3 Immune thrombocytopenic purpura (principal)
CPT/HCPCS: 36415; 85025

== ENCOUNTER → 2018-03-04 12:45 | Outpatient (CLI) | payer MEDICARE, OTHER, SELFPAY ==
[2018-03-04 13:01] LABS: Add Manual Diff / Slide Review NO; Basophils Absolute Auto 200 /uL (0-100); Basophils Percent Auto 1.6 % (0-2); Eosinophils Absolute Auto 100 /uL (0-450); Eosinophils Percent Auto 1.2 % (2-4); Hematocrit 40.8 % (36-46); Hemoglobin 13.8 g/dL (12.0-16.0); Lymphocytes Absolute Auto 2400 /uL (1100-4500); Lymphocytes Percent Auto 21.5 % (25-40); Mean Corpuscular HGB Conc 33.8 % (30-36); Mean Corpuscular Hemoglobin 32.4 PG (26-34); Mean Corpuscular Volume 95.8 fL (80-100); Monocytes Absolute Auto 600 /uL (0-900); Monocytes Percent Auto 5.2 % (3-14); Neutrophils Absolute Auto 7800 /uL (1500-7000); Neutrophils Percent Auto 70.5 % (50-75); Platelet Count 64 X10^3/uL (150-400); Red Blood Cell Count 4.26 X10^6/uL (4.0-5.2); Red Cell Distribution Width 14.3 % (11.6-14.8)
== END ==
PROVIDERS: Family Provider Physician Assistant; PCP Physician Assistant; Visit Provider Internal Medicine Hematology
DX: D69.3 Immune thrombocytopenic purpura (principal)
CPT/HCPCS: 36415; 85025

== ENCOUNTER → 2018-03-20 08:49 | Outpatient (CLI) | payer MEDICARE, OTHER, SELFPAY ==
[2018-03-20 09:41] LABS: Add Manual Diff / Slide Review NO; Basophils Absolute Auto 300 /uL (0-100); Basophils Percent Auto 2.9 % (0-2); Eosinophils Absolute Auto 300 /uL (0-450); Eosinophils Percent Auto 3.1 % (2-4); Hematocrit 39.5 % (36-46); Hemoglobin 13.4 g/dL (12.0-16.0); Lymphocytes Absolute Auto 3600 /uL (1100-4500); Lymphocytes Percent Auto 34.6 % (25-40); Mean Corpuscular HGB Conc 33.9 % (30-36); Mean Corpuscular Hemoglobin 32.6 PG (26-34); Mean Corpuscular Volume 96.1 fL (80-100); Monocytes Absolute Auto 900 /uL (0-900); Monocytes Percent Auto 8.5 % (3-14); Neutrophils Absolute Auto 5300 /uL (1500-7000); Neutrophils Percent Auto 50.9 % (50-75); Platelet Count 132 X10^3/uL (150-400); Red Blood Cell Count 4.11 X10^6/uL (4.0-5.2); Red Cell Distribution Width 14.4 % (11.6-14.8); White Blood Cell Count 10.4 X10^3/uL (4.5-11.0)
== END ==
PROVIDERS: Family Provider Physician Assistant; PCP Physician Assistant; Visit Provider Internal Medicine Hematology
DX: D69.3 Immune thrombocytopenic purpura (principal)
CPT/HCPCS: 36415; 85025

== ENCOUNTER → 2018-04-03 10:56 | Outpatient (CLI) | payer MEDICARE, OTHER, SELFPAY ==
[2018-04-03 11:08] LABS: Hematocrit 40.9 % (36-46); Hemoglobin 13.7 g/dL (12.0-16.0); Mean Corpuscular HGB Conc 33.6 % (30-36); Mean Corpuscular Hemoglobin 32.2 PG (26-34); Mean Corpuscular Volume 95.9 fL (80-100); Red Blood Cell Count 4.27 X10^6/uL (4.0-5.2); Red Cell Distribution Width 14.2 % (11.6-14.8); White Blood Cell Count 13.3 X10^3/uL (4.5-11.0)
[2018-04-03 11:24] LABS: Add Manual Diff / Slide Review SLIDE REVIEW; Platelet Count 8 X10^3/uL (150-400)
[2018-04-03 12:36] LABS: Platelet Estimate Decreased on smear
== END ==
PROVIDERS: Family Provider Physician Assistant; PCP Physician Assistant; Visit Provider Internal Medicine Hematology
DX: D69.3 Immune thrombocytopenic purpura (principal)
CPT/HCPCS: 36415; 85025

== ENCOUNTER → 2018-04-06 10:56 | Outpatient (CLI) | payer MEDICARE, OTHER, SELFPAY ==
[2018-04-06 11:20] LABS: Add Manual Diff / Slide Review NO; Basophils Absolute Auto 100 /uL (0-100); Basophils Percent Auto 0.8 % (0-2); Eosinophils Absolute Auto 100 /uL (0-450); Hematocrit 41.2 % (36-46); Lymphocytes Absolute Auto 1900 /uL (1100-4500); Lymphocytes Percent Auto 13.4 % (25-40); Mean Corpuscular Hemoglobin 32.5 PG (26-34); Mean Corpuscular Volume 95.6 fL (80-100); Monocytes Absolute Auto 700 /uL (0-900); Monocytes Percent Auto 4.5 % (3-14); Neutrophils Absolute Auto 11700 /uL (1500-7000); Neutrophils Percent Auto 80.3 % (50-75); Red Blood Cell Count 4.31 X10^6/uL (4.0-5.2); Red Cell Distribution Width 14.3 % (11.6-14.8); White Blood Cell Count 14.5 X10^3/uL (4.5-11.0)
[2018-04-06 11:24] LABS: Platelet Count 12 X10^3/uL (150-400)
[2018-04-06 11:37] LABS: Platelet Estimate Decreased on smear
== END ==
PROVIDERS: Family Provider Physician Assistant; PCP Physician Assistant; Visit Provider Internal Medicine Hematology
DX: D69.3 Immune thrombocytopenic purpura (principal)
CPT/HCPCS: 36415; 85025

== ENCOUNTER → 2018-04-08 10:52 | Outpatient (CLI) | payer MEDICARE, OTHER, SELFPAY ==
[2018-04-08 11:42] LABS: Add Manual Diff / Slide Review NO; Basophils Absolute Auto 100 /uL (0-100); Basophils Percent Auto 0.5 % (0-2); Eosinophils Absolute Auto 300 /uL (0-450); Eosinophils Percent Auto 1.8 % (2-4); Hematocrit 41.2 % (36-46); Hemoglobin 13.6 g/dL (12.0-16.0); Lymphocytes Absolute Auto 2900 /uL (1100-4500); Lymphocytes Percent Auto 19.7 % (25-40); Mean Corpuscular HGB Conc 33.1 % (30-36); Mean Corpuscular Hemoglobin 32.2 PG (26-34); Mean Corpuscular Volume 97.2 fL (80-100); Monocytes Absolute Auto 800 /uL (0-900); Monocytes Percent Auto 5.3 % (3-14); Neutrophils Absolute Auto 10800 /uL (1500-7000); Neutrophils Percent Auto 72.7 % (50-75); Platelet Count 38 X10^3/uL (150-400); Red Blood Cell Count 4.24 X10^6/uL (4.0-5.2); Red Cell Distribution Width 14.7 % (11.6-14.8); White Blood Cell Count 14.9 X10^3/uL (4.5-11.0)
[2018-04-08 12:14] LABS: RBC Morphology Normal Morphology
== END ==
PROVIDERS: Family Provider Physician Assistant; PCP Physician Assistant; Visit Provider Internal Medicine Hematology
DX: D69.3 Immune thrombocytopenic purpura (principal)
CPT/HCPCS: 36415; 85025

== ENCOUNTER → 2018-04-13 11:32 | Outpatient (CLI) | payer MEDICARE, OTHER, SELFPAY ==
[2018-04-13 12:15] LABS: Add Manual Diff / Slide Review NO; Basophils Absolute Auto 100 /uL (0-100); Basophils Percent Auto 0.7 % (0-2); Eosinophils Absolute Auto 200 /uL (0-450); Eosinophils Percent Auto 1.6 % (2-4); Hematocrit 40.2 % (36-46); Hemoglobin 13.5 g/dL (12.0-16.0); Lymphocytes Absolute Auto 2900 /uL (1100-4500); Lymphocytes Percent Auto 20.6 % (25-40); Mean Corpuscular HGB Conc 33.6 % (30-36); Mean Corpuscular Hemoglobin 32.5 PG (26-34); Mean Corpuscular Volume 96.7 fL (80-100); Monocytes Absolute Auto 800 /uL (0-900); Monocytes Percent Auto 5.6 % (3-14); Neutrophils Absolute Auto 10000 /uL (1500-7000); Neutrophils Percent Auto 71.5 % (50-75); Platelet Count 93 X10^3/uL (150-400); Red Blood Cell Count 4.16 X10^6/uL (4.0-5.2); Red Cell Distribution Width 14.4 % (11.6-14.8)
== END ==
PROVIDERS: PCP Physician Assistant; Visit Provider Internal Medicine Hematology
DX: D69.3 Immune thrombocytopenic purpura (principal)
CPT/HCPCS: 36415; 85025

== ENCOUNTER → 2018-04-15 13:53 | Outpatient (CLI) | payer MEDICARE, OTHER, SELFPAY ==
[2018-04-15 14:07] LABS: Add Manual Diff / Slide Review NO; Basophils Absolute Auto 0 /uL (0-100); Basophils Percent Auto 0.4 % (0-2); Eosinophils Absolute Auto 0 /uL (0-450); Hematocrit 42.9 % (36-46); Hemoglobin 14.2 g/dL (12.0-16.0); Lymphocytes Absolute Auto 1500 /uL (1100-4500); Mean Corpuscular HGB Conc 33.1 % (30-36); Mean Corpuscular Hemoglobin 32.3 PG (26-34); Mean Corpuscular Volume 97.6 fL (80-100); Monocytes Absolute Auto 400 /uL (0-900); Neutrophils Absolute Auto 11800 /uL (1500-7000); Neutrophils Percent Auto 85.6 % (50-75); Platelet Count 136 X10^3/uL (150-400); Red Cell Distribution Width 14.5 % (11.6-14.8); White Blood Cell Count 13.8 X10^3/uL (4.5-11.0)
[2018-04-15 14:32] LABS: Alanine Aminotransferase 27 IU/L (9-52); Albumin 4.7 g/dL (3.5-5.0); Albumin Globulin Ratio 1.7 (1.0-2.8); Alkaline Phosphatase 60 U/L (38-126); Aspartate Aminotransferase 23 IU/L (14-36); Bilirubin Total 0.8 mg/dL (0.2-1.3); Bilirubin Unconjugated 0.6 mg/dL (0.0-1.1); Globulin 2.7 g/dL (1.7-4.1); HEMOLYSIS < 15 (0-50); Total Protein 7.4 g/dL (6.3-8.2)
== END ==
PROVIDERS: PCP Physician Assistant; Visit Provider Internal Medicine Hematology
DX: D69.3 Immune thrombocytopenic purpura (principal)
CPT/HCPCS: 36415; 80076; 85025

== ENCOUNTER → 2018-04-21 10:50 | Outpatient (CLI) | payer MEDICARE, OTHER, SELFPAY ==
[2018-04-21 12:13] LABS: Add Manual Diff / Slide Review NO; Basophils Absolute Auto 200 /uL (0-100); Basophils Percent Auto 1.3 % (0-2); Eosinophils Absolute Auto 200 /uL (0-450); Eosinophils Percent Auto 1.6 % (2-4); Hematocrit 39.2 % (36-46); Hemoglobin 13.2 g/dL (12.0-16.0); Lymphocytes Absolute Auto 2000 /uL (1100-4500); Mean Corpuscular HGB Conc 33.6 % (30-36); Mean Corpuscular Hemoglobin 32.5 PG (26-34); Mean Corpuscular Volume 96.7 fL (80-100); Monocytes Absolute Auto 500 /uL (0-900); Monocytes Percent Auto 4.5 % (3-14); Neutrophils Absolute Auto 9000 /uL (1500-7000); Neutrophils Percent Auto 75.6 % (50-75); Platelet Count 181 X10^3/uL (150-400); Red Blood Cell Count 4.06 X10^6/uL (4.0-5.2); Red Cell Distribution Width 14.5 % (11.6-14.8); White Blood Cell Count 11.9 X10^3/uL (4.5-11.0)
== END ==
PROVIDERS: Family Provider Physician Assistant; PCP Physician Assistant; Visit Provider Internal Medicine Hematology
DX: D69.3 Immune thrombocytopenic purpura (principal)
CPT/HCPCS: 36415; 85025

== ENCOUNTER → 2018-04-25 07:57 | Outpatient (CLI) | payer MEDICARE, OTHER, SELFPAY ==
[2018-04-25 08:15] LABS: Add Manual Diff / Slide Review NO; Basophils Absolute Auto 100 /uL (0-100); Basophils Percent Auto 1.1 % (0-2); Eosinophils Absolute Auto 300 /uL (0-450); Eosinophils Percent Auto 3.1 % (2-4); Hematocrit 40.6 % (36-46); Hemoglobin 13.6 g/dL (12.0-16.0); Lymphocytes Absolute Auto 3200 /uL (1100-4500); Lymphocytes Percent Auto 31.3 % (25-40); Mean Corpuscular HGB Conc 33.6 % (30-36); Mean Corpuscular Hemoglobin 32.5 PG (26-34); Mean Corpuscular Volume 96.7 fL (80-100); Monocytes Absolute Auto 900 /uL (0-900); Monocytes Percent Auto 9.1 % (3-14); Neutrophils Absolute Auto 5700 /uL (1500-7000); Neutrophils Percent Auto 55.4 % (50-75); Platelet Count 149 X10^3/uL (150-400); Red Cell Distribution Width 14.5 % (11.6-14.8); White Blood Cell Count 10.3 X10^3/uL (4.5-11.0)
== END ==
PROVIDERS: PCP Physician Assistant; Visit Provider Internal Medicine Hematology
DX: D69.3 Immune thrombocytopenic purpura (principal)
CPT/HCPCS: 36415; 85025

== ENCOUNTER → 2018-05-11 11:54 | Outpatient (CLI) | payer MEDICARE, OTHER, SELFPAY ==
[2018-05-11 12:31] LABS: Add Manual Diff / Slide Review NO; Basophils Absolute Auto 100 /uL (0-100); Basophils Percent Auto 0.7 % (0-2); Eosinophils Absolute Auto 100 /uL (0-450); Eosinophils Percent Auto 0.6 % (2-4); Hematocrit 40.9 % (36-46); Hemoglobin 13.6 g/dL (12.0-16.0); Lymphocytes Absolute Auto 1600 /uL (1100-4500); Lymphocytes Percent Auto 14.7 % (25-40); Mean Corpuscular HGB Conc 33.4 % (30-36); Mean Corpuscular Hemoglobin 32.5 PG (26-34); Mean Corpuscular Volume 97.5 fL (80-100); Monocytes Absolute Auto 400 /uL (0-900); Monocytes Percent Auto 4.1 % (3-14); Neutrophils Absolute Auto 8600 /uL (1500-7000); Neutrophils Percent Auto 79.9 % (50-75); Platelet Count 175 X10^3/uL (150-400); Red Blood Cell Count 4.19 X10^6/uL (4.0-5.2); Red Cell Distribution Width 14.9 % (11.6-14.8); White Blood Cell Count 10.7 X10^3/uL (4.5-11.0)
== END ==
PROVIDERS: PCP Physician Assistant; Visit Provider Internal Medicine Hematology
DX: D69.3 Immune thrombocytopenic purpura (principal)
CPT/HCPCS: 36415; 85025

== ENCOUNTER → 2018-05-18 13:01 | Outpatient (CLI) | payer MEDICARE, OTHER, SELFPAY ==
[2018-05-18 14:25] LABS: Add Manual Diff / Slide Review NO; Basophils Absolute Auto 200 /uL (0-100); Basophils Percent Auto 1.4 % (0-2); Eosinophils Absolute Auto 200 /uL (0-450); Eosinophils Percent Auto 2.1 % (2-4); Hematocrit 41.5 % (36-46); Hemoglobin 13.8 g/dL (12.0-16.0); Lymphocytes Absolute Auto 3200 /uL (1100-4500); Lymphocytes Percent Auto 29.3 % (25-40); Mean Corpuscular HGB Conc 33.3 % (30-36); Mean Corpuscular Hemoglobin 32.4 PG (26-34); Mean Corpuscular Volume 97.4 fL (80-100); Monocytes Absolute Auto 800 /uL (0-900); Monocytes Percent Auto 7.4 % (3-14); Neutrophils Absolute Auto 6500 /uL (1500-7000); Neutrophils Percent Auto 59.8 % (50-75); Platelet Count 402 X10^3/uL (150-400); Red Blood Cell Count 4.27 X10^6/uL (4.0-5.2); Red Cell Distribution Width 14.7 % (11.6-14.8); White Blood Cell Count 10.9 X10^3/uL (4.5-11.0)
[2018-05-18 14:28] LABS: Alanine Aminotransferase 24 IU/L (9-52); Albumin 4.4 g/dL (3.5-5.0); Albumin Globulin Ratio 1.8 (1.0-2.8); Alkaline Phosphatase 61 U/L (38-126); Aspartate Aminotransferase 24 IU/L (14-36); Bilirubin Total 0.6 mg/dL (0.2-1.3); Bilirubin Unconjugated 0.6 mg/dL (0.0-1.1); Globulin 2.5 g/dL (1.7-4.1); HEMOLYSIS < 15 (0-50); Total Protein 6.9 g/dL (6.3-8.2)
== END ==
PROVIDERS: PCP Physician Assistant
DX: D69.3 Immune thrombocytopenic purpura (principal)
CPT/HCPCS: 36415; 80076; 85025

== ENCOUNTER → 2018-05-21 07:04 | Outpatient (CLI) | payer MEDICARE, OTHER, SELFPAY ==
[2018-05-21 07:43] LABS: Add Manual Diff / Slide Review NO; Basophils Absolute Auto 100 /uL (0-100); Basophils Percent Auto 1.7 % (0-2); Eosinophils Absolute Auto 200 /uL (0-450); Eosinophils Percent Auto 2.7 % (2-4); Hematocrit 38.2 % (36-46); Hemoglobin 13.2 g/dL (12.0-16.0); Lymphocytes Absolute Auto 2400 /uL (1100-4500); Lymphocytes Percent Auto 28.7 % (25-40); Mean Corpuscular HGB Conc 34.6 % (30-36); Mean Corpuscular Hemoglobin 33.1 PG (26-34); Mean Corpuscular Volume 95.5 fL (80-100); Monocytes Absolute Auto 900 /uL (0-900); Monocytes Percent Auto 10.4 % (3-14); Neutrophils Absolute Auto 4800 /uL (1500-7000); Neutrophils Percent Auto 56.5 % (50-75); Platelet Count 470 X10^3/uL (150-400); Red Cell Distribution Width 14.8 % (11.6-14.8); White Blood Cell Count 8.4 X10^3/uL (4.5-11.0)
[2018-05-21 08:20] LABS: Alanine Aminotransferase 20 IU/L (9-52); Albumin 4.2 g/dL (3.5-5.0); Albumin Globulin Ratio 1.7 (1.0-2.8); Alkaline Phosphatase 57 U/L (38-126); Aspartate Aminotransferase 25 IU/L (14-36); Bilirubin Total 0.7 mg/dL (0.2-1.3); Bilirubin Unconjugated 0.7 mg/dL (0.0-1.1); Globulin 2.5 g/dL (1.7-4.1); HEMOLYSIS < 15 (0-50); Total Protein 6.7 g/dL (6.3-8.2)
== END ==
PROVIDERS: Family Provider Physician Assistant; PCP Physician Assistant; Visit Provider Internal Medicine Hematology
DX: D69.3 Immune thrombocytopenic purpura (principal)
CPT/HCPCS: 80076; 85025

== ENCOUNTER → 2018-05-26 09:13 | Outpatient (CLI) | payer MEDICARE, OTHER, SELFPAY ==
[2018-05-26 09:54] LABS: Add Manual Diff / Slide Review NO; Basophils Absolute Auto 200 /uL (0-100); Basophils Percent Auto 2.6 % (0-2); Eosinophils Absolute Auto 300 /uL (0-450); Eosinophils Percent Auto 3.1 % (2-4); Hematocrit 39.3 % (36-46); Hemoglobin 13.5 g/dL (12.0-16.0); Lymphocytes Absolute Auto 2400 /uL (1100-4500); Lymphocytes Percent Auto 29.8 % (25-40); Mean Corpuscular HGB Conc 34.4 % (30-36); Mean Corpuscular Hemoglobin 32.9 PG (26-34); Mean Corpuscular Volume 95.8 fL (80-100); Monocytes Absolute Auto 800 /uL (0-900); Monocytes Percent Auto 10.1 % (3-14); Neutrophils Absolute Auto 4400 /uL (1500-7000); Neutrophils Percent Auto 54.4 % (50-75); Platelet Count 463 X10^3/uL (150-400); Red Cell Distribution Width 14.3 % (11.6-14.8); White Blood Cell Count 8.1 X10^3/uL (4.5-11.0)
[2018-05-26 10:24] LABS: Alanine Aminotransferase 21 IU/L (9-52); Albumin 4.4 g/dL (3.5-5.0); Albumin Globulin Ratio 1.7 (1.0-2.8); Alkaline Phosphatase 65 U/L (38-126); Aspartate Aminotransferase 26 IU/L (14-36); Bilirubin Total 0.8 mg/dL (0.2-1.3); Bilirubin Unconjugated 0.8 mg/dL (0.0-1.1); Cholesterol 191 mg/dL (140-199); Globulin 2.6 g/dL (1.7-4.1); HDL Cholesterol 86 mg/dL (40-60); HEMOLYSIS < 15 (0-50); LDL Cholesterol Calculated 91 mg/dL (<100); Triglycerides 70 mg/dL (35-150)
== END ==
PROVIDERS: Family Provider Physician Assistant; PCP Physician Assistant; Visit Provider Internal Medicine Hematology
DX: D69.3 Immune thrombocytopenic purpura (principal); E78.2 Mixed hyperlipidemia
CPT/HCPCS: 36415; 80061; 80076; 85025

== ENCOUNTER → 2018-06-02 09:02 | Outpatient (CLI) | payer MEDICARE, OTHER, SELFPAY ==
[2018-06-02 10:34] LABS: Add Manual Diff / Slide Review NO; Basophils Absolute Auto 200 /uL (0-100); Basophils Percent Auto 2.2 % (0-2); Eosinophils Absolute Auto 300 /uL (0-450); Eosinophils Percent Auto 2.9 % (2-4); Hematocrit 39.2 % (36-46); Hemoglobin 13.6 g/dL (12.0-16.0); Lymphocytes Absolute Auto 2600 /uL (1100-4500); Lymphocytes Percent Auto 24.2 % (25-40); Mean Corpuscular HGB Conc 34.8 % (30-36); Mean Corpuscular Hemoglobin 33.3 PG (26-34); Mean Corpuscular Volume 95.8 fL (80-100); Monocytes Absolute Auto 900 /uL (0-900); Monocytes Percent Auto 8.2 % (3-14); Neutrophils Absolute Auto 6600 /uL (1500-7000); Neutrophils Percent Auto 62.5 % (50-75); Platelet Count 373 X10^3/uL (150-400); Red Blood Cell Count 4.09 X10^6/uL (4.0-5.2); Red Cell Distribution Width 14.3 % (11.6-14.8); White Blood Cell Count 10.6 X10^3/uL (4.5-11.0)
[2018-06-02 11:02] LABS: Alanine Aminotransferase 20 IU/L (9-52); Albumin 4.5 g/dL (3.5-5.0); Albumin Globulin Ratio 1.8 (1.0-2.8); Alkaline Phosphatase 65 U/L (38-126); Aspartate Aminotransferase 27 IU/L (14-36); Bilirubin Total 0.7 mg/dL (0.2-1.3); Bilirubin Unconjugated 0.7 mg/dL (0.0-1.1); Globulin 2.5 g/dL (1.7-4.1); HEMOLYSIS < 15 (0-50)
== END ==
PROVIDERS: Family Provider Physician Assistant; PCP Physician Assistant; Visit Provider Internal Medicine Hematology
DX: D69.3 Immune thrombocytopenic purpura (principal)
CPT/HCPCS: 36415; 80076; 85025

== ENCOUNTER → 2018-06-09 09:21 | Outpatient (CLI) | payer MEDICARE, OTHER, SELFPAY ==
[2018-06-09 09:40] LABS: Add Manual Diff / Slide Review NO; Basophils Absolute Auto 200 /uL (0-100); Eosinophils Absolute Auto 300 /uL (0-450); Eosinophils Percent Auto 3.7 % (2-4); Hematocrit 40.8 % (36-46); Hemoglobin 13.6 g/dL (12.0-16.0); Lymphocytes Absolute Auto 2300 /uL (1100-4500); Lymphocytes Percent Auto 27.5 % (25-40); Mean Corpuscular HGB Conc 33.5 % (30-36); Mean Corpuscular Hemoglobin 32.4 PG (26-34); Mean Corpuscular Volume 96.8 fL (80-100); Monocytes Absolute Auto 800 /uL (0-900); Monocytes Percent Auto 9.9 % (3-14); Neutrophils Absolute Auto 4800 /uL (1500-7000); Neutrophils Percent Auto 56.9 % (50-75); Platelet Count 366 X10^3/uL (150-400); Red Blood Cell Count 4.22 X10^6/uL (4.0-5.2); Red Cell Distribution Width 14.3 % (11.6-14.8); White Blood Cell Count 8.4 X10^3/uL (4.5-11.0)
[2018-06-09 09:52] LABS: Alanine Aminotransferase 23 IU/L (9-52); Albumin 4.7 g/dL (3.5-5.0); Albumin Globulin Ratio 1.6 (1.0-2.8); Alkaline Phosphatase 66 U/L (38-126); Aspartate Aminotransferase 29 IU/L (14-36); Bilirubin Total 0.7 mg/dL (0.2-1.3); Bilirubin Unconjugated 0.6 mg/dL (0.0-1.1); Globulin 2.9 g/dL (1.7-4.1); HEMOLYSIS < 15 (0-50); Total Protein 7.6 g/dL (6.3-8.2)
== END ==
PROVIDERS: Family Provider Physician Assistant; PCP Physician Assistant; Visit Provider Internal Medicine Hematology
DX: D69.3 Immune thrombocytopenic purpura (principal)
CPT/HCPCS: 36415; 80076; 85025

== ENCOUNTER → 2018-06-16 11:58 | Outpatient (CLI) | payer MEDICARE, OTHER, SELFPAY ==
[2018-06-16 12:31] LABS: Add Manual Diff / Slide Review NO; Basophils Absolute Auto 200 /uL (0-100); Basophils Percent Auto 1.7 % (0-2); Eosinophils Absolute Auto 300 /uL (0-450); Eosinophils Percent Auto 2.8 % (2-4); Hematocrit 41.1 % (36-46); Hemoglobin 13.6 g/dL (12.0-16.0); Lymphocytes Absolute Auto 3100 /uL (1100-4500); Lymphocytes Percent Auto 26.8 % (25-40); Mean Corpuscular Volume 96.9 fL (80-100); Monocytes Absolute Auto 1000 /uL (0-900); Monocytes Percent Auto 8.8 % (3-14); Neutrophils Absolute Auto 7000 /uL (1500-7000); Neutrophils Percent Auto 59.9 % (50-75); Platelet Count 178 X10^3/uL (150-400); Red Blood Cell Count 4.24 X10^6/uL (4.0-5.2); Red Cell Distribution Width 14.2 % (11.6-14.8); White Blood Cell Count 11.7 X10^3/uL (4.5-11.0)
[2018-06-16 12:57] LABS: Alanine Aminotransferase 20 IU/L (9-52); Albumin 4.6 g/dL (3.5-5.0); Albumin Globulin Ratio 1.7 (1.0-2.8); Alkaline Phosphatase 63 U/L (38-126); Aspartate Aminotransferase 25 IU/L (14-36); Bilirubin Total 0.9 mg/dL (0.2-1.3); Bilirubin Unconjugated 0.8 mg/dL (0.0-1.1); Globulin 2.7 g/dL (1.7-4.1); HEMOLYSIS 16 (0-50); Total Protein 7.3 g/dL (6.3-8.2)
== END ==
PROVIDERS: Family Provider Physician Assistant; PCP Physician Assistant; Visit Provider Internal Medicine Hematology
DX: D69.3 Immune thrombocytopenic purpura (principal)
CPT/HCPCS: 36415; 80076; 85025

== ENCOUNTER → 2018-06-23 09:42 | Outpatient (CLI) | payer MEDICARE, OTHER, SELFPAY ==
[2018-06-23 10:01] LABS: Add Manual Diff / Slide Review NO; Basophils Absolute Auto 200 /uL (0-100); Basophils Percent Auto 1.7 % (0-2); Eosinophils Absolute Auto 300 /uL (0-450); Eosinophils Percent Auto 3.2 % (2-4); Hematocrit 38.3 % (36-46); Hemoglobin 13.2 g/dL (12.0-16.0); Lymphocytes Absolute Auto 2400 /uL (1100-4500); Lymphocytes Percent Auto 23.9 % (25-40); Mean Corpuscular HGB Conc 34.5 % (30-36); Mean Corpuscular Hemoglobin 32.9 PG (26-34); Mean Corpuscular Volume 95.2 fL (80-100); Monocytes Absolute Auto 800 /uL (0-900); Monocytes Percent Auto 8.3 % (3-14); Neutrophils Absolute Auto 6400 /uL (1500-7000); Neutrophils Percent Auto 62.9 % (50-75); Red Blood Cell Count 4.02 X10^6/uL (4.0-5.2); Red Cell Distribution Width 14.1 % (11.6-14.8); White Blood Cell Count 10.2 X10^3/uL (4.5-11.0)
[2018-06-23 10:08] LABS: Alanine Aminotransferase 13 IU/L (9-52); Albumin 4.4 g/dL (3.5-5.0); Albumin Globulin Ratio 1.6 (1.0-2.8); Alkaline Phosphatase 61 U/L (38-126); Aspartate Aminotransferase 23 IU/L (14-36); Bilirubin Total 0.9 mg/dL (0.2-1.3); Bilirubin Unconjugated 0.8 mg/dL (0.0-1.1); Globulin 2.8 g/dL (1.7-4.1); HEMOLYSIS < 15 (0-50); Total Protein 7.2 g/dL (6.3-8.2)
[2018-06-23 11:06] LABS: Platelet Count 23 X10^3/uL (150-400)
[2018-06-23 11:07] LABS: Acanthocytes 1+
== END ==
PROVIDERS: Family Provider Physician Assistant; PCP Physician Assistant; Visit Provider Internal Medicine Hematology
DX: D69.3 Immune thrombocytopenic purpura (principal)
CPT/HCPCS: 36415; 80076; 85025

== ENCOUNTER → 2018-06-30 09:09 | Outpatient (CLI) | payer MEDICARE, OTHER, SELFPAY ==
[2018-06-30 09:28] LABS: Add Manual Diff / Slide Review NO; Basophils Absolute Auto 300 /uL (0-100); Basophils Percent Auto 3.4 % (0-2); Eosinophils Absolute Auto 400 /uL (0-450); Eosinophils Percent Auto 4.6 % (2-4); Hematocrit 39.3 % (36-46); Hemoglobin 13.2 g/dL (12.0-16.0); Lymphocytes Absolute Auto 2400 /uL (1100-4500); Lymphocytes Percent Auto 25.3 % (25-40); Mean Corpuscular HGB Conc 33.5 % (30-36); Mean Corpuscular Hemoglobin 32.3 PG (26-34); Mean Corpuscular Volume 96.6 fL (80-100); Monocytes Absolute Auto 1000 /uL (0-900); Monocytes Percent Auto 10.4 % (3-14); Neutrophils Absolute Auto 5400 /uL (1500-7000); Neutrophils Percent Auto 56.3 % (50-75); Platelet Count 60 X10^3/uL (150-400); Red Blood Cell Count 4.07 X10^6/uL (4.0-5.2); Red Cell Distribution Width 14.3 % (11.6-14.8); White Blood Cell Count 9.6 X10^3/uL (4.5-11.0)
[2018-06-30 09:42] LABS: Alanine Aminotransferase 19 IU/L (9-52); Albumin 4.4 g/dL (3.5-5.0); Albumin Globulin Ratio 1.5 (1.0-2.8); Alkaline Phosphatase 63 U/L (38-126); Aspartate Aminotransferase 23 IU/L (14-36); Bilirubin Unconjugated 0.9 mg/dL (0.0-1.1); Globulin 2.9 g/dL (1.7-4.1); HEMOLYSIS < 15 (0-50); Total Protein 7.3 g/dL (6.3-8.2)
== END ==
PROVIDERS: Family Provider Physician Assistant; PCP Physician Assistant; Visit Provider Internal Medicine Hematology
DX: D69.3 Immune thrombocytopenic purpura (principal)
CPT/HCPCS: 36415; 80076; 85025

== ENCOUNTER → 2018-07-07 09:42 | Outpatient (CLI) | payer MEDICARE, OTHER, SELFPAY ==
[2018-07-07 10:15] LABS: Add Manual Diff / Slide Review NO; Basophils Absolute Auto 200 /uL (0-100); Basophils Percent Auto 2.4 % (0-2); Eosinophils Absolute Auto 400 /uL (0-450); Eosinophils Percent Auto 3.8 % (2-4); Hematocrit 36.9 % (36-46); Hemoglobin 12.9 g/dL (12.0-16.0); Lymphocytes Absolute Auto 2400 /uL (1100-4500); Mean Corpuscular Hemoglobin 33.2 PG (26-34); Mean Corpuscular Volume 94.9 fL (80-100); Monocytes Absolute Auto 900 /uL (0-900); Monocytes Percent Auto 9.5 % (3-14); Neutrophils Absolute Auto 5600 /uL (1500-7000); Neutrophils Percent Auto 59.3 % (50-75); Platelet Count 253 X10^3/uL (150-400); Red Blood Cell Count 3.88 X10^6/uL (4.0-5.2); Red Cell Distribution Width 13.9 % (11.6-14.8); White Blood Cell Count 9.5 X10^3/uL (4.5-11.0)
[2018-07-07 11:19] LABS: Alanine Aminotransferase 9 IU/L (9-52); Albumin 4.1 g/dL (3.5-5.0); Albumin Globulin Ratio 1.4 (1.0-2.8); Alkaline Phosphatase 65 U/L (38-126); Aspartate Aminotransferase 24 IU/L (14-36); Bilirubin Total 0.8 mg/dL (0.2-1.3); Bilirubin Unconjugated 0.7 mg/dL (0.0-1.1); HEMOLYSIS < 15 (0-50); Total Protein 7.1 g/dL (6.3-8.2)
== END ==
PROVIDERS: Family Provider Physician Assistant; PCP Physician Assistant; Visit Provider Internal Medicine Hematology
DX: D69.3 Immune thrombocytopenic purpura (principal)
CPT/HCPCS: 36415; 80076; 85025

== ENCOUNTER → 2018-07-15 10:48 | Outpatient (CLI) | payer MEDICARE, OTHER, SELFPAY ==
[2018-07-15 11:26] LABS: Add Manual Diff / Slide Review NO; Basophils Absolute Auto 300 /uL (0-100); Basophils Percent Auto 2.6 % (0-2); Eosinophils Absolute Auto 400 /uL (0-450); Eosinophils Percent Auto 3.3 % (2-4); Hematocrit 40.6 % (36-46); Hemoglobin 13.9 g/dL (12.0-16.0); Lymphocytes Absolute Auto 3400 /uL (1100-4500); Lymphocytes Percent Auto 32.2 % (25-40); Mean Corpuscular HGB Conc 34.1 % (30-36); Mean Corpuscular Hemoglobin 32.6 PG (26-34); Mean Corpuscular Volume 95.5 fL (80-100); Monocytes Absolute Auto 900 /uL (0-900); Monocytes Percent Auto 8.4 % (3-14); Neutrophils Absolute Auto 5700 /uL (1500-7000); Neutrophils Percent Auto 53.5 % (50-75); Platelet Count 172 X10^3/uL (150-400); Red Blood Cell Count 4.25 X10^6/uL (4.0-5.2); Red Cell Distribution Width 13.7 % (11.6-14.8); White Blood Cell Count 10.7 X10^3/uL (4.5-11.0)
[2018-07-15 11:58] LABS: Alanine Aminotransferase 19 IU/L (9-52); Albumin 4.6 g/dL (3.5-5.0); Albumin Globulin Ratio 1.6 (1.0-2.8); Alkaline Phosphatase 70 U/L (38-126); Aspartate Aminotransferase 24 IU/L (14-36); Bilirubin Total 0.8 mg/dL (0.2-1.3); Bilirubin Unconjugated 0.6 mg/dL (0.0-1.1); Globulin 2.9 g/dL (1.7-4.1); HEMOLYSIS < 15 (0-50); Total Protein 7.5 g/dL (6.3-8.2)
== END ==
PROVIDERS: Family Provider Physician Assistant; PCP Physician Assistant; Visit Provider Internal Medicine Hematology
DX: D69.3 Immune thrombocytopenic purpura (principal)
CPT/HCPCS: 36415; 80076; 85025

== ENCOUNTER → 2018-07-21 08:34 | Outpatient (CLI) | payer MEDICARE, OTHER, SELFPAY ==
[2018-07-21 09:12] LABS: Add Manual Diff / Slide Review NO; Basophils Absolute Auto 300 /uL (0-100); Eosinophils Absolute Auto 400 /uL (0-450); Eosinophils Percent Auto 4.1 % (2-4); Hematocrit 37.3 % (36-46); Hemoglobin 13.1 g/dL (12.0-16.0); Lymphocytes Absolute Auto 3000 /uL (1100-4500); Lymphocytes Percent Auto 32.4 % (25-40); Mean Corpuscular Hemoglobin 32.9 PG (26-34); Mean Corpuscular Volume 93.9 fL (80-100); Monocytes Absolute Auto 800 /uL (0-900); Monocytes Percent Auto 8.9 % (3-14); Neutrophils Absolute Auto 4900 /uL (1500-7000); Neutrophils Percent Auto 51.6 % (50-75); Red Blood Cell Count 3.97 X10^6/uL (4.0-5.2); Red Cell Distribution Width 13.7 % (11.6-14.8); White Blood Cell Count 9.4 X10^3/uL (4.5-11.0)
[2018-07-21 09:17] LABS: Platelet Count 6 X10^3/uL (150-400)
[2018-07-21 09:22] LABS: Alanine Aminotransferase 12 IU/L (9-52); Albumin 4.1 g/dL (3.5-5.0); Albumin Globulin Ratio 1.5 (1.0-2.8); Alkaline Phosphatase 58 U/L (38-126); Aspartate Aminotransferase 22 IU/L (14-36); Bilirubin Total 0.8 mg/dL (0.2-1.3); Bilirubin Unconjugated 0.8 mg/dL (0.0-1.1); Globulin 2.8 g/dL (1.7-4.1); HEMOLYSIS < 15 (0-50); Total Protein 6.9 g/dL (6.3-8.2)
[2018-07-21 09:51] LABS: RBC Morphology Normal Morphology
== END ==
PROVIDERS: Family Provider Physician Assistant; PCP Physician Assistant; Visit Provider Internal Medicine Hematology
DX: D69.3 Immune thrombocytopenic purpura (principal)
CPT/HCPCS: 36415; 80076; 85025

== ENCOUNTER → 2018-07-24 08:55 | Outpatient (CLI) | payer MEDICARE, OTHER, SELFPAY ==
[2018-07-24 09:15] LABS: Add Manual Diff / Slide Review NO; Basophils Absolute Auto 300 /uL (0-100); Basophils Percent Auto 3.1 % (0-2); Eosinophils Absolute Auto 400 /uL (0-450); Eosinophils Percent Auto 3.7 % (2-4); Hematocrit 38.4 % (36-46); Hemoglobin 13.2 g/dL (12.0-16.0); Lymphocytes Absolute Auto 3300 /uL (1100-4500); Lymphocytes Percent Auto 31.2 % (25-40); Mean Corpuscular HGB Conc 34.5 % (30-36); Mean Corpuscular Hemoglobin 32.7 PG (26-34); Mean Corpuscular Volume 94.9 fL (80-100); Monocytes Absolute Auto 1000 /uL (0-900); Monocytes Percent Auto 9.5 % (3-14); Neutrophils Absolute Auto 5600 /uL (1500-7000); Neutrophils Percent Auto 52.5 % (50-75); Red Blood Cell Count 4.04 X10^6/uL (4.0-5.2); White Blood Cell Count 10.6 X10^3/uL (4.5-11.0)
[2018-07-24 09:25] LABS: Alanine Aminotransferase 15 IU/L (9-52); Albumin 4.4 g/dL (3.5-5.0); Alkaline Phosphatase 58 U/L (38-126); Aspartate Aminotransferase 20 IU/L (14-36); Bilirubin Unconjugated 0.8 mg/dL (0.0-1.1); Globulin 4.4 g/dL (1.7-4.1); HEMOLYSIS < 15 (0-50); Total Protein 8.8 g/dL (6.3-8.2)
[2018-07-24 10:00] LABS: RBC Morphology Normal Morphology
[2018-07-24 11:12] LABS: Platelet Count 36 X10^3/uL (150-400)
== END ==
PROVIDERS: Visit Provider Internal Medicine Hematology
DX: D69.3 Immune thrombocytopenic purpura (principal)
CPT/HCPCS: 36415; 80076; 85025

== ENCOUNTER → 2018-07-27 09:21 | Outpatient (CLI) | payer MEDICARE, OTHER, SELFPAY ==
[2018-07-27 09:49] LABS: Add Manual Diff / Slide Review NO; Basophils Absolute Auto 100 /uL (0-100); Basophils Percent Auto 1.5 % (0-2); Eosinophils Absolute Auto 300 /uL (0-450); Eosinophils Percent Auto 2.7 % (2-4); Hematocrit 38.3 % (36-46); Lymphocytes Absolute Auto 3600 /uL (1100-4500); Lymphocytes Percent Auto 36.2 % (25-40); Mean Corpuscular Hemoglobin 32.6 PG (26-34); Mean Corpuscular Volume 95.8 fL (80-100); Monocytes Absolute Auto 900 /uL (0-900); Monocytes Percent Auto 9.3 % (3-14); Neutrophils Absolute Auto 5000 /uL (1500-7000); Neutrophils Percent Auto 50.3 % (50-75); Platelet Count 109 X10^3/uL (150-400); Red Cell Distribution Width 14.2 % (11.6-14.8); White Blood Cell Count 9.9 X10^3/uL (4.5-11.0)
[2018-07-27 10:04] LABS: Alanine Aminotransferase 13 IU/L (9-52); Albumin 4.3 g/dL (3.5-5.0); Albumin Globulin Ratio 1.2 (1.0-2.8); Alkaline Phosphatase 59 U/L (38-126); Aspartate Aminotransferase 24 IU/L (14-36); Bilirubin Total 0.9 mg/dL (0.2-1.3); Bilirubin Unconjugated 0.7 mg/dL (0.0-1.1); Globulin 3.7 g/dL (1.7-4.1); HEMOLYSIS 25 (0-50)
== END ==
PROVIDERS: Visit Provider Internal Medicine Hematology
DX: D69.3 Immune thrombocytopenic purpura (principal)
CPT/HCPCS: 36415; 80076; 85025

== ENCOUNTER → 2018-07-30 08:36 | Outpatient (CLI) | payer MEDICARE, OTHER, SELFPAY ==
[2018-07-30 09:02] LABS: Add Manual Diff / Slide Review NO; Basophils Absolute Auto 200 /uL (0-100); Basophils Percent Auto 1.5 % (0-2); Eosinophils Absolute Auto 300 /uL (0-450); Eosinophils Percent Auto 2.7 % (2-4); Hematocrit 37.3 % (36-46); Hemoglobin 12.5 g/dL (12.0-16.0); Lymphocytes Absolute Auto 4100 /uL (1100-4500); Lymphocytes Percent Auto 35.9 % (25-40); Mean Corpuscular HGB Conc 33.5 % (30-36); Mean Corpuscular Hemoglobin 32.2 PG (26-34); Mean Corpuscular Volume 96.2 fL (80-100); Monocytes Absolute Auto 900 /uL (0-900); Neutrophils Absolute Auto 5900 /uL (1500-7000); Neutrophils Percent Auto 51.9 % (50-75); Platelet Count 248 X10^3/uL (150-400); Red Blood Cell Count 3.88 X10^6/uL (4.0-5.2); Red Cell Distribution Width 14.3 % (11.6-14.8); White Blood Cell Count 11.3 X10^3/uL (4.5-11.0)
[2018-07-30 09:13] LABS: Alanine Aminotransferase 19 IU/L (9-52); Albumin 4.1 g/dL (3.5-5.0); Albumin Globulin Ratio 1.2 (1.0-2.8); Alkaline Phosphatase 58 U/L (38-126); Aspartate Aminotransferase 23 IU/L (14-36); Bilirubin Total 0.7 mg/dL (0.2-1.3); Bilirubin Unconjugated 0.6 mg/dL (0.0-1.1); Globulin 3.5 g/dL (1.7-4.1); HEMOLYSIS < 15 (0-50); Total Protein 7.6 g/dL (6.3-8.2)
== END ==
PROVIDERS: Visit Provider Internal Medicine Hematology
DX: D69.3 Immune thrombocytopenic purpura (principal)
CPT/HCPCS: 36415; 80076; 85025

== ENCOUNTER → 2018-08-04 10:36 | Outpatient (CLI) | payer MEDICARE, OTHER, SELFPAY ==
[2018-08-04 10:58] LABS: Add Manual Diff / Slide Review NO; Basophils Absolute Auto 200 /uL (0-100); Basophils Percent Auto 1.6 % (0-2); Eosinophils Absolute Auto 300 /uL (0-450); Eosinophils Percent Auto 2.7 % (2-4); Hematocrit 38.4 % (36-46); Hemoglobin 13.2 g/dL (12.0-16.0); Lymphocytes Absolute Auto 3500 /uL (1100-4500); Lymphocytes Percent Auto 32.4 % (25-40); Mean Corpuscular HGB Conc 34.3 % (30-36); Mean Corpuscular Hemoglobin 32.4 PG (26-34); Mean Corpuscular Volume 94.6 fL (80-100); Monocytes Absolute Auto 900 /uL (0-900); Monocytes Percent Auto 7.9 % (3-14); Neutrophils Absolute Auto 6100 /uL (1500-7000); Neutrophils Percent Auto 55.4 % (50-75); Platelet Count 430 X10^3/uL (150-400); Red Blood Cell Count 4.06 X10^6/uL (4.0-5.2); Red Cell Distribution Width 14.5 % (11.6-14.8); White Blood Cell Count 10.9 X10^3/uL (4.5-11.0)
[2018-08-04 11:25] LABS: Alanine Aminotransferase 22 IU/L (9-52); Albumin 4.3 g/dL (3.5-5.0); Albumin Globulin Ratio 1.3 (1.0-2.8); Alkaline Phosphatase 59 U/L (38-126); Aspartate Aminotransferase 27 IU/L (14-36); Bilirubin Total 0.9 mg/dL (0.2-1.3); Bilirubin Unconjugated 0.7 mg/dL (0.0-1.1); Globulin 3.4 g/dL (1.7-4.1); HEMOLYSIS 20 (0-50); Total Protein 7.7 g/dL (6.3-8.2)
== END ==
PROVIDERS: Visit Provider Internal Medicine Hematology
DX: D69.3 Immune thrombocytopenic purpura (principal)
CPT/HCPCS: 36415; 80076; 85025

== ENCOUNTER → 2018-08-11 07:46 | Outpatient (CLI) | payer MEDICARE, OTHER, SELFPAY ==
[2018-08-11 08:24] LABS: Add Manual Diff / Slide Review NO; Basophils Absolute Auto 100 /uL (0-100); Basophils Percent Auto 1.1 % (0-2); Eosinophils Absolute Auto 200 /uL (0-450); Eosinophils Percent Auto 1.6 % (2-4); Hematocrit 37.6 % (36-46); Hemoglobin 12.6 g/dL (12.0-16.0); Lymphocytes Absolute Auto 4100 /uL (1100-4500); Lymphocytes Percent Auto 33.7 % (25-40); Mean Corpuscular HGB Conc 33.6 % (30-36); Mean Corpuscular Hemoglobin 32.1 PG (26-34); Mean Corpuscular Volume 95.6 fL (80-100); Monocytes Absolute Auto 900 /uL (0-900); Monocytes Percent Auto 7.8 % (3-14); Neutrophils Absolute Auto 6700 /uL (1500-7000); Neutrophils Percent Auto 55.8 % (50-75); Platelet Count 356 X10^3/uL (150-400); Red Blood Cell Count 3.94 X10^6/uL (4.0-5.2); Red Cell Distribution Width 14.3 % (11.6-14.8); White Blood Cell Count 12.1 X10^3/uL (4.5-11.0)
[2018-08-11 09:08] LABS: Alanine Aminotransferase 18 IU/L (9-52); Albumin 4.2 g/dL (3.5-5.0); Albumin Globulin Ratio 1.4 (1.0-2.8); Alkaline Phosphatase 65 U/L (38-126); Aspartate Aminotransferase 21 IU/L (14-36); Bilirubin Total 0.5 mg/dL (0.2-1.3); Bilirubin Unconjugated 0.4 mg/dL (0.0-1.1); Globulin 3.1 g/dL (1.7-4.1); HEMOLYSIS < 15 (0-50); Total Protein 7.3 g/dL (6.3-8.2)
== END ==
PROVIDERS: Visit Provider Internal Medicine Hematology
DX: D69.3 Immune thrombocytopenic purpura (principal)
CPT/HCPCS: 36415; 80076; 85025

== ENCOUNTER → 2018-08-18 10:43 | Outpatient (CLI) | payer MEDICARE, OTHER, SELFPAY ==
[2018-08-18 11:06] LABS: Add Manual Diff / Slide Review NO; Basophils Absolute Auto 200 /uL (0-100); Basophils Percent Auto 1.4 % (0-2); Eosinophils Absolute Auto 200 /uL (0-450); Eosinophils Percent Auto 1.5 % (2-4); Hematocrit 37.8 % (36-46); Hemoglobin 12.8 g/dL (12.0-16.0); Lymphocytes Absolute Auto 4400 /uL (1100-4500); Lymphocytes Percent Auto 33.5 % (25-40); Mean Corpuscular Hemoglobin 32.2 PG (26-34); Mean Corpuscular Volume 94.8 fL (80-100); Monocytes Absolute Auto 1000 /uL (0-900); Monocytes Percent Auto 7.3 % (3-14); Neutrophils Absolute Auto 7400 /uL (1500-7000); Neutrophils Percent Auto 56.3 % (50-75); Platelet Count 208 X10^3/uL (150-400); Red Blood Cell Count 3.98 X10^6/uL (4.0-5.2); Red Cell Distribution Width 14.3 % (11.6-14.8); White Blood Cell Count 13.1 X10^3/uL (4.5-11.0)
[2018-08-18 12:01] LABS: Alanine Aminotransferase 15 IU/L (9-52); Albumin 4.2 g/dL (3.5-5.0); Albumin Globulin Ratio 1.4 (1.0-2.8); Alkaline Phosphatase 59 U/L (38-126); Aspartate Aminotransferase 23 IU/L (14-36); Bilirubin Total 0.9 mg/dL (0.2-1.3); Bilirubin Unconjugated 0.7 mg/dL (0.0-1.1); Globulin 2.9 g/dL (1.7-4.1); HEMOLYSIS < 15 (0-50); Total Protein 7.1 g/dL (6.3-8.2)
== END ==
PROVIDERS: Visit Provider Internal Medicine Hematology
DX: D69.3 Immune thrombocytopenic purpura (principal)
CPT/HCPCS: 36415; 80076; 85025

== ENCOUNTER → 2018-08-27 09:40 | Outpatient (CLI) | payer MEDICARE, OTHER, SELFPAY ==
[2018-08-27 10:50] LABS: Add Manual Diff / Slide Review NO; Basophils Absolute Auto 100 /uL (0-100); Basophils Percent Auto 1.1 % (0-2); Eosinophils Absolute Auto 100 /uL (0-450); Eosinophils Percent Auto 1.3 % (2-4); Hematocrit 40.4 % (36-46); Hemoglobin 13.4 g/dL (12.0-16.0); Lymphocytes Absolute Auto 3800 /uL (1100-4500); Lymphocytes Percent Auto 33.4 % (25-40); Mean Corpuscular HGB Conc 33.1 % (30-36); Mean Corpuscular Hemoglobin 31.9 PG (26-34); Mean Corpuscular Volume 96.3 fL (80-100); Monocytes Absolute Auto 900 /uL (0-900); Monocytes Percent Auto 8.2 % (3-14); Neutrophils Absolute Auto 6400 /uL (1500-7000); Platelet Count 228 X10^3/uL (150-400); Red Blood Cell Count 4.19 X10^6/uL (4.0-5.2); Red Cell Distribution Width 14.5 % (11.6-14.8); White Blood Cell Count 11.4 X10^3/uL (4.5-11.0)
[2018-08-27 11:48] LABS: Alanine Aminotransferase 18 IU/L (9-52); Albumin 4.3 g/dL (3.5-5.0); Albumin Globulin Ratio 1.4 (1.0-2.8); Alkaline Phosphatase 60 U/L (38-126); Aspartate Aminotransferase 22 IU/L (14-36); Bilirubin Total 0.8 mg/dL (0.2-1.3); Bilirubin Unconjugated 0.7 mg/dL (0.0-1.1); Globulin 3.1 g/dL (1.7-4.1); HEMOLYSIS < 15 (0-50); Total Protein 7.4 g/dL (6.3-8.2)
== END ==
PROVIDERS: Visit Provider Internal Medicine Hematology
DX: D69.3 Immune thrombocytopenic purpura (principal)
CPT/HCPCS: 36415; 80076; 85025

== ENCOUNTER → 2018-09-08 08:50 | Outpatient (CLI) | payer MEDICARE, OTHER, SELFPAY ==
[2018-09-08 09:08] LABS: Add Manual Diff / Slide Review NO; Basophils Absolute Auto 100 /uL (0-100); Basophils Percent Auto 1.2 % (0-2); Eosinophils Absolute Auto 200 /uL (0-450); Eosinophils Percent Auto 2.3 % (2-4); Hematocrit 37.9 % (36-46); Lymphocytes Absolute Auto 3400 /uL (1100-4500); Lymphocytes Percent Auto 33.6 % (25-40); Mean Corpuscular HGB Conc 34.4 % (30-36); Mean Corpuscular Hemoglobin 32.6 PG (26-34); Mean Corpuscular Volume 94.7 fL (80-100); Monocytes Absolute Auto 900 /uL (0-900); Monocytes Percent Auto 8.5 % (3-14); Neutrophils Absolute Auto 5600 /uL (1500-7000); Neutrophils Percent Auto 54.4 % (50-75); Platelet Count 337 X10^3/uL (150-400); Red Cell Distribution Width 14.5 % (11.6-14.8); White Blood Cell Count 10.2 X10^3/uL (4.5-11.0)
[2018-09-08 09:26] LABS: Alanine Aminotransferase 13 IU/L (9-52); Albumin 4.1 g/dL (3.5-5.0); Albumin Globulin Ratio 1.4 (1.0-2.8); Alkaline Phosphatase 58 U/L (38-126); Aspartate Aminotransferase 22 IU/L (14-36); Bilirubin Total 0.8 mg/dL (0.2-1.3); Bilirubin Unconjugated 0.6 mg/dL (0.0-1.1); HEMOLYSIS < 15 (0-50); Total Protein 7.1 g/dL (6.3-8.2)
== END ==
PROVIDERS: Visit Provider Internal Medicine Hematology
DX: D69.3 Immune thrombocytopenic purpura (principal)
CPT/HCPCS: 36415; 80076; 85025

== ENCOUNTER → 2018-09-18 07:02 | Outpatient (CLI) | payer MEDICARE, OTHER, SELFPAY ==
[2018-09-18 07:46] LABS: Add Manual Diff / Slide Review NO; Basophils Absolute Auto 200 /uL (0-100); Basophils Percent Auto 2.6 % (0-2); Eosinophils Absolute Auto 300 /uL (0-450); Eosinophils Percent Auto 3.3 % (2-4); Hematocrit 38.7 % (36-46); Hemoglobin 13.1 g/dL (12.0-16.0); Lymphocytes Absolute Auto 3500 /uL (1100-4500); Lymphocytes Percent Auto 38.7 % (25-40); Mean Corpuscular Hemoglobin 32.2 PG (26-34); Mean Corpuscular Volume 94.6 fL (80-100); Monocytes Absolute Auto 800 /uL (0-900); Monocytes Percent Auto 8.9 % (3-14); Neutrophils Absolute Auto 4200 /uL (1500-7000); Neutrophils Percent Auto 46.5 % (50-75); Platelet Count 301 X10^3/uL (150-400); Red Blood Cell Count 4.09 X10^6/uL (4.0-5.2); Red Cell Distribution Width 14.6 % (11.6-14.8); White Blood Cell Count 9.1 X10^3/uL (4.5-11.0)
[2018-09-18 07:55] LABS: Alanine Aminotransferase 14 IU/L (9-52); Albumin 4.1 g/dL (3.5-5.0); Albumin Globulin Ratio 1.4 (1.0-2.8); Alkaline Phosphatase 51 U/L (38-126); Aspartate Aminotransferase 22 IU/L (14-36); Bilirubin Total 0.7 mg/dL (0.2-1.3); Bilirubin Unconjugated 0.6 mg/dL (0.0-1.1); Globulin 2.9 g/dL (1.7-4.1); HEMOLYSIS < 15 (0-50)
== END ==
PROVIDERS: Visit Provider Internal Medicine Hematology
DX: D69.3 Immune thrombocytopenic purpura (principal)
CPT/HCPCS: 36415; 80076; 85025

== ENCOUNTER → 2018-09-30 08:27 | Outpatient (CLI) | payer MEDICARE, OTHER, SELFPAY ==
[2018-09-30 08:44] LABS: Add Manual Diff / Slide Review NO; Basophils Absolute Auto 200 /uL (0-100); Basophils Percent Auto 1.8 % (0-2); Eosinophils Absolute Auto 300 /uL (0-450); Eosinophils Percent Auto 2.3 % (2-4); Hematocrit 37.1 % (36-46); Hemoglobin 12.6 g/dL (12.0-16.0); Lymphocytes Absolute Auto 3600 /uL (1100-4500); Lymphocytes Percent Auto 30.9 % (25-40); Mean Corpuscular HGB Conc 34.1 % (30-36); Mean Corpuscular Hemoglobin 31.9 PG (26-34); Mean Corpuscular Volume 93.7 fL (80-100); Monocytes Absolute Auto 1100 /uL (0-900); Monocytes Percent Auto 9.5 % (3-14); Neutrophils Absolute Auto 6500 /uL (1500-7000); Neutrophils Percent Auto 55.5 % (50-75); Platelet Count 262 X10^3/uL (150-400); Red Blood Cell Count 3.96 X10^6/uL (4.0-5.2); Red Cell Distribution Width 14.3 % (11.6-14.8); White Blood Cell Count 11.7 X10^3/uL (4.5-11.0)
[2018-09-30 09:03] LABS: Alanine Aminotransferase 16 IU/L (9-52); Albumin 4.2 g/dL (3.5-5.0); Albumin Globulin Ratio 1.6 (1.0-2.8); Alkaline Phosphatase 60 U/L (38-126); Aspartate Aminotransferase 21 IU/L (14-36); Bilirubin Total 0.7 mg/dL (0.2-1.3); Bilirubin Unconjugated 0.6 mg/dL (0.0-1.1); Globulin 2.7 g/dL (1.7-4.1); HEMOLYSIS 15 (0-50); Total Protein 6.9 g/dL (6.3-8.2)
== END ==
PROVIDERS: Visit Provider Internal Medicine Hematology
DX: D69.3 Immune thrombocytopenic purpura (principal)
CPT/HCPCS: 36415; 80076; 85025

== ENCOUNTER → 2018-10-07 09:22 | Outpatient (CLI) | payer MEDICARE, OTHER, SELFPAY ==
[2018-10-07 09:54] LABS: Add Manual Diff / Slide Review NO; Basophils Absolute Auto 200 /uL (0-100); Basophils Percent Auto 2.4 % (0-2); Eosinophils Absolute Auto 300 /uL (0-450); Eosinophils Percent Auto 3.2 % (2-4); Hematocrit 39.2 % (36-46); Hemoglobin 13.2 g/dL (12.0-16.0); Lymphocytes Absolute Auto 3000 /uL (1100-4500); Lymphocytes Percent Auto 34.7 % (25-40); Mean Corpuscular HGB Conc 33.6 % (30-36); Mean Corpuscular Volume 95.1 fL (80-100); Monocytes Absolute Auto 800 /uL (0-900); Monocytes Percent Auto 9.1 % (3-14); Neutrophils Absolute Auto 4400 /uL (1500-7000); Neutrophils Percent Auto 50.6 % (50-75); Platelet Count 199 X10^3/uL (150-400); Red Blood Cell Count 4.12 X10^6/uL (4.0-5.2); Red Cell Distribution Width 14.5 % (11.6-14.8); White Blood Cell Count 8.6 X10^3/uL (4.5-11.0)
[2018-10-07 10:06] LABS: Alanine Aminotransferase 17 IU/L (9-52); Albumin 4.4 g/dL (3.5-5.0); Albumin Globulin Ratio 1.5 (1.0-2.8); Alkaline Phosphatase 61 U/L (38-126); Aspartate Aminotransferase 23 IU/L (14-36); Bilirubin Total 0.9 mg/dL (0.2-1.3); Bilirubin Unconjugated 0.7 mg/dL (0.0-1.1); Cholesterol 209 mg/dL (140-199); HDL Cholesterol 106 mg/dL (40-60); HEMOLYSIS < 15 (0-50); LDL Cholesterol Calculated 88 mg/dL (<100); Total Protein 7.4 g/dL (6.3-8.2); Triglycerides 76 mg/dL (35-150)
== END ==
PROVIDERS: Family Provider Internal Medicine Hematology; Visit Provider Internal Medicine
DX: G45.9 Transient cerebral ischemic attack, unspecified (principal); D69.3 Immune thrombocytopenic purpura
CPT/HCPCS: 36415; 80061; 80076; 85025

== ENCOUNTER → 2018-10-16 11:00 | Outpatient (CLI) | payer MEDICARE, OTHER, SELFPAY ==
[2018-10-16 11:27] LABS: Add Manual Diff / Slide Review NO; Basophils Absolute Auto 100 /uL (0-100); Basophils Percent Auto 0.7 % (0-2); Eosinophils Absolute Auto 200 /uL (0-450); Eosinophils Percent Auto 1.9 % (2-4); Hematocrit 39.1 % (36-46); Hemoglobin 13.2 g/dL (12.0-16.0); Lymphocytes Absolute Auto 2000 /uL (1100-4500); Lymphocytes Percent Auto 16.5 % (25-40); Mean Corpuscular HGB Conc 33.7 % (30-36); Mean Corpuscular Hemoglobin 31.8 PG (26-34); Mean Corpuscular Volume 94.3 fL (80-100); Monocytes Absolute Auto 800 /uL (0-900); Monocytes Percent Auto 6.7 % (3-14); Neutrophils Absolute Auto 9000 /uL (1500-7000); Neutrophils Percent Auto 74.2 % (50-75); Platelet Count 41 X10^3/uL (150-400); Red Blood Cell Count 4.14 X10^6/uL (4.0-5.2); Red Cell Distribution Width 14.6 % (11.6-14.8); White Blood Cell Count 12.1 X10^3/uL (4.5-11.0)
[2018-10-16 11:39] LABS: Alanine Aminotransferase 12 IU/L (9-52); Albumin 4.4 g/dL (3.5-5.0); Albumin Globulin Ratio 1.4 (1.0-2.8); Alkaline Phosphatase 55 U/L (38-126); Aspartate Aminotransferase 21 IU/L (14-36); Bilirubin Total 0.7 mg/dL (0.2-1.3); Bilirubin Unconjugated 0.5 mg/dL (0.0-1.1); Globulin 3.1 g/dL (1.7-4.1); HEMOLYSIS < 15 (0-50); Total Protein 7.5 g/dL (6.3-8.2)
== END ==
PROVIDERS: Visit Provider Internal Medicine Hematology
DX: D69.3 Immune thrombocytopenic purpura (principal)
CPT/HCPCS: 36415; 80076; 85025

== ENCOUNTER → 2018-10-17 10:32 | Outpatient (CLI) | payer MEDICARE, OTHER, SELFPAY ==
--- NOTE | 2018-10-17 | DI.RAD.S_ITS ---
PROCEDURE: XR ANKLE RT 2V INDICATIONS: RT ANKLE PAIN TECHNIQUE: 3 views of the ankle were acquired. COMPARISON: None. FINDINGS: Bones: No fractures or dislocations. Ankle mortise is normally aligned. No suspicious bony lesions. Elongation involving the tip of the medial malleolus is suggestive of previous ligamentous injury. No significant degenerative changes of the midfoot or hindfoot are evident. Soft tissues: No tibiotalar joint effusion. Achilles tendon appears normal in thickness, but is not adequately evaluated on conventional radiography. IMPRESSION: No acute osseous abnormality of the right ankle. Dictated by: Berlin Rolle M.D. on 10/17/2018 at 10:10 Approved by: Berlin Rolle M.D. on 10/17/2018 at 10:10
--- NOTE | 2018-10-17 | DI.RAD.S_ITS ---
PROCEDURE: XR TIBIA FUBULA RT 2V INDICATIONS: RT LEG PAIN TECHNIQUE: 2 views of the tibia and fibula were acquired. COMPARISON: [facility], CR, XR ANKLE RT 2V, 10/17/2018, 10:41. FINDINGS: Bones: No fractures or dislocations. No suspicious bony lesions. Elongation involving the tip of the medial malleolus probably is related to previous ligamentous injury. Soft tissues: No suspicious soft tissue calcifications or masses. IMPRESSION: No acute osseous abnormality of the right lower leg. Dictated by: Berlin Rolle M.D. on 10/17/2018 at 10:08 Approved by: Berlin Rolle M.D. on 10/17/2018 at 10:09
== END ==
PROVIDERS: Visit Provider Student in an Organized Health Care Education/Training Program
DX: M79.604 Pain in right leg (principal)
CPT/HCPCS: 73590; 73600

== ENCOUNTER → 2018-10-21 10:15 | Outpatient (CLI) | payer MEDICARE, OTHER, SELFPAY ==
[2018-10-21 10:30] LABS: Basophils Absolute Auto 200 /uL (0-100); Basophils Percent Auto 1.5 % (0-2); Eosinophils Absolute Auto 300 /uL (0-450); Eosinophils Percent Auto 2.2 % (2-4); Hemoglobin 12.9 g/dL (12.0-16.0); Lymphocytes Absolute Auto 2800 /uL (1100-4500); Lymphocytes Percent Auto 22.4 % (25-40); Mean Corpuscular HGB Conc 33.2 % (30-36); Mean Corpuscular Hemoglobin 31.5 PG (26-34); Mean Corpuscular Volume 94.9 fL (80-100); Monocytes Absolute Auto 1100 /uL (0-900); Monocytes Percent Auto 9.1 % (3-14); Neutrophils Absolute Auto 8100 /uL (1500-7000); Neutrophils Percent Auto 64.8 % (50-75); Red Blood Cell Count 4.11 X10^6/uL (4.0-5.2); Red Cell Distribution Width 14.2 % (11.6-14.8); White Blood Cell Count 12.6 X10^3/uL (4.5-11.0)
[2018-10-21 10:54] LABS: Alanine Aminotransferase 14 IU/L (9-52); Albumin 4.4 g/dL (3.5-5.0); Albumin Globulin Ratio 1.5 (1.0-2.8); Alkaline Phosphatase 65 U/L (38-126); Aspartate Aminotransferase 26 IU/L (14-36); Bilirubin Total 0.8 mg/dL (0.2-1.3); Bilirubin Unconjugated 0.7 mg/dL (0.0-1.1); Globulin 2.9 g/dL (1.7-4.1); HEMOLYSIS < 15 (0-50); Total Protein 7.3 g/dL (6.3-8.2)
[2018-10-21 11:09] LABS: Platelet Count 13 X10^3/uL (150-400)
[2018-10-21 11:10] LABS: Add Manual Diff / Slide Review SLIDE REVIEW
[2018-10-21 11:12] LABS: Platelet Estimate Decreased on smear
[2018-10-21 11:13] LABS: Poikilocytosis 1+
== END ==
PROVIDERS: Visit Provider Internal Medicine Hematology
DX: D69.3 Immune thrombocytopenic purpura (principal)
CPT/HCPCS: 36415; 80076; 85025

== ENCOUNTER → 2018-10-31 11:32 | Outpatient (CLI) | payer MEDICARE, OTHER, SELFPAY ==
[2018-10-31 13:20] LABS: Add Manual Diff / Slide Review NO; Basophils Absolute Auto 200 /uL (0-100); Basophils Percent Auto 1.4 % (0-2); Eosinophils Absolute Auto 100 /uL (0-450); Eosinophils Percent Auto 0.9 % (2-4); Hematocrit 38.8 % (36-46); Hemoglobin 13.1 g/dL (12.0-16.0); Lymphocytes Absolute Auto 1700 /uL (1100-4500); Lymphocytes Percent Auto 11.7 % (25-40); Mean Corpuscular HGB Conc 33.7 % (30-36); Mean Corpuscular Hemoglobin 31.6 PG (26-34); Mean Corpuscular Volume 93.7 fL (80-100); Monocytes Absolute Auto 700 /uL (0-900); Monocytes Percent Auto 4.7 % (3-14); Neutrophils Absolute Auto 11500 /uL (1500-7000); Neutrophils Percent Auto 81.3 % (50-75); Platelet Count 454 X10^3/uL (150-400); Red Blood Cell Count 4.15 X10^6/uL (4.0-5.2); Red Cell Distribution Width 14.3 % (11.6-14.8); White Blood Cell Count 14.1 X10^3/uL (4.5-11.0)
== END ==
PROVIDERS: Visit Provider Internal Medicine Hematology
DX: D69.3 Immune thrombocytopenic purpura (principal)
CPT/HCPCS: 36415; 85025

== ENCOUNTER → 2018-11-13 14:43 | Outpatient (CLI) | payer MEDICARE, OTHER, SELFPAY | PROVIDERS: PCP Internal Medicine; Visit Provider Family Medicine | DX: I87.2 Venous insufficiency (chronic) (peripheral) (principal); D69.3 Immune thrombocytopenic purpura; Z79.899 Other long term (current) drug therapy; L97.821 Non-pressure chronic ulcer of other part of left lower leg limited to breakdown of skin | CPT/HCPCS: 11042; 99213; 99214 ==

== ENCOUNTER → 2018-11-14 09:23 | Outpatient (CLI) | payer MEDICARE, OTHER, SELFPAY ==
[2018-11-14 10:05] LABS: Add Manual Diff / Slide Review NO; Basophils Absolute Auto 100 /uL (0-100); Basophils Percent Auto 0.8 % (0-2); Eosinophils Absolute Auto 300 /uL (0-450); Eosinophils Percent Auto 1.8 % (2-4); Hematocrit 38.5 % (36-46); Hemoglobin 12.8 g/dL (12.0-16.0); Lymphocytes Absolute Auto 1900 /uL (1100-4500); Lymphocytes Percent Auto 11.6 % (25-40); Mean Corpuscular HGB Conc 33.3 % (30-36); Mean Corpuscular Hemoglobin 31.4 PG (26-34); Mean Corpuscular Volume 94.3 fL (80-100); Monocytes Absolute Auto 800 /uL (0-900); Neutrophils Absolute Auto 13300 /uL (1500-7000); Neutrophils Percent Auto 80.8 % (50-75); Platelet Count 147 X10^3/uL (150-400); Red Blood Cell Count 4.08 X10^6/uL (4.0-5.2); Red Cell Distribution Width 14.7 % (11.6-14.8); White Blood Cell Count 16.5 X10^3/uL (4.5-11.0)
[2018-11-14 10:16] LABS: Alanine Aminotransferase 15 IU/L (9-52); Albumin 4.4 g/dL (3.5-5.0); Albumin Globulin Ratio 1.5 (1.0-2.8); Alkaline Phosphatase 63 U/L (38-126); Aspartate Aminotransferase 22 IU/L (14-36); Bilirubin Total 0.8 mg/dL (0.2-1.3); Bilirubin Unconjugated 0.7 mg/dL (0.0-1.1); HEMOLYSIS < 15 (0-50); Total Protein 7.4 g/dL (6.3-8.2)
[2018-11-14 10:36] LABS: Alanine Aminotransferase 17 IU/L (9-52); Albumin 4.3 g/dL (3.5-5.0); Albumin Globulin Ratio 1.4 (1.0-2.8); Alkaline Phosphatase 66 U/L (38-126); Aspartate Aminotransferase 22 IU/L (14-36); Bilirubin Total 0.8 mg/dL (0.2-1.3); Blood Urea Nitrogen 18 mg/dL (7-17); Calcium 9.4 mg/dL (8.4-10.2); Carbon Dioxide 29 mmol/L (22-32); Chloride 98 mmol/L (98-107); Estimated Glomerular Filt Rate > 60.0 mL/min (>60); Globulin 3.1 g/dL (1.7-4.1); Glucose 99 mg/dL (80-110); HEMOLYSIS < 15 (0-50); Sodium 137 mmol/L (137-145); Total Protein 7.4 g/dL (6.3-8.2)
[2018-11-14 10:52] LABS: Free T3, Triiodothyronine Free 3.35 pg/mL (2.77-5.27); T4 Total Thyroxine 7.48 ug/dL (5.5-11.0)
[2018-11-14 11:06] LABS: Thyroid Stimulating Hormone 1.42 uIU/mL (0.47-4.68)
[2018-11-14 11:09] LABS: Testosterone 5.8 ng/dL (5.71-77.0)
[2018-11-14 11:25] LABS: Vitamin B12 620 pg/mL (239-931)
[2018-11-14 11:28] LABS: Estradiol, Total 13.9 pg/mL
[2018-11-17 15:05] LABS: Thyroid Peroxidase Antibodies 2 IU/mL (< 9)
== END ==
PROVIDERS: Family Provider Internal Medicine Hematology; PCP Internal Medicine; Visit Provider Nurse Practitioner Family
DX: D69.3 Immune thrombocytopenic purpura (principal); N95.9 Unspecified menopausal and perimenopausal disorder; L65.9 Nonscarring hair loss, unspecified; F51.01 Primary insomnia; R53.82 Chronic fatigue, unspecified; E34.8 Other specified endocrine disorders
CPT/HCPCS: 36415; 80053; 80076; 82607; 82670; 83001; 84403; 84436; 84443; 84481; 85025; 86376

== ENCOUNTER → 2018-11-20 09:28 | Outpatient (CLI) | payer MEDICARE, OTHER, SELFPAY | PROVIDERS: Family Provider Internal Medicine Hematology; PCP Internal Medicine; Visit Provider Family Medicine | DX: I87.2 Venous insufficiency (chronic) (peripheral) (principal); L97.818 Non-pressure chronic ulcer of other part of right lower leg with other specified severity; R60.0 Localized edema | CPT/HCPCS: 99213 ==

== ENCOUNTER → 2018-11-24 16:48 | Outpatient (CLI) | payer MEDICARE, OTHER, SELFPAY ==
[2018-11-24 17:11] LABS: Add Manual Diff / Slide Review NO; Basophils Absolute Auto 100 /uL (0-100); Basophils Percent Auto 0.6 % (0-2); Eosinophils Absolute Auto 0 /uL (0-450); Eosinophils Percent Auto 0.4 % (2-4); Hematocrit 40.1 % (36-46); Hemoglobin 13.2 g/dL (12.0-16.0); Lymphocytes Absolute Auto 1900 /uL (1100-4500); Lymphocytes Percent Auto 15.7 % (25-40); Mean Corpuscular Hemoglobin 31.2 PG (26-34); Mean Corpuscular Volume 94.6 fL (80-100); Monocytes Absolute Auto 700 /uL (0-900); Monocytes Percent Auto 5.8 % (3-14); Neutrophils Absolute Auto 9500 /uL (1500-7000); Neutrophils Percent Auto 77.5 % (50-75); Platelet Count 196 X10^3/uL (150-400); Red Blood Cell Count 4.24 X10^6/uL (4.0-5.2); Red Cell Distribution Width 14.7 % (11.6-14.8); White Blood Cell Count 12.3 X10^3/uL (4.5-11.0)
[2018-11-24 17:23] LABS: Alanine Aminotransferase 17 IU/L (9-52); Albumin 4.6 g/dL (3.5-5.0); Albumin Globulin Ratio 1.6 (1.0-2.8); Alkaline Phosphatase 56 U/L (38-126); Aspartate Aminotransferase 22 IU/L (14-36); Bilirubin Total 0.8 mg/dL (0.2-1.3); Bilirubin Unconjugated 0.7 mg/dL (0.0-1.1); Globulin 2.8 g/dL (1.7-4.1); HEMOLYSIS < 15 (0-50); Total Protein 7.4 g/dL (6.3-8.2)
== END ==
PROVIDERS: Family Provider Internal Medicine Hematology; PCP Internal Medicine; Visit Provider Internal Medicine Hematology
DX: D69.3 Immune thrombocytopenic purpura (principal)
CPT/HCPCS: 36415; 80076; 85025

== ENCOUNTER → 2018-12-03 09:45 | Outpatient (CLI) | payer MEDICARE, OTHER, SELFPAY ==
[2018-12-03 10:04] LABS: Add Manual Diff / Slide Review NO; Basophils Absolute Auto 200 /uL (0-100); Basophils Percent Auto 2.2 % (0-2); Eosinophils Absolute Auto 200 /uL (0-450); Eosinophils Percent Auto 2.7 % (2-4); Hematocrit 39.3 % (36-46); Hemoglobin 13.1 g/dL (12.0-16.0); Lymphocytes Absolute Auto 2700 /uL (1100-4500); Lymphocytes Percent Auto 33.8 % (25-40); Mean Corpuscular HGB Conc 33.2 % (30-36); Mean Corpuscular Hemoglobin 31.2 PG (26-34); Mean Corpuscular Volume 93.9 fL (80-100); Monocytes Absolute Auto 700 /uL (0-900); Monocytes Percent Auto 8.9 % (3-14); Neutrophils Absolute Auto 4200 /uL (1500-7000); Neutrophils Percent Auto 52.4 % (50-75); Platelet Count 294 X10^3/uL (150-400); Red Blood Cell Count 4.19 X10^6/uL (4.0-5.2); Red Cell Distribution Width 14.9 % (11.6-14.8)
== END ==
PROVIDERS: Family Provider Internal Medicine Hematology; PCP Internal Medicine; Visit Provider Internal Medicine Hematology
DX: D69.3 Immune thrombocytopenic purpura (principal)
CPT/HCPCS: 36415; 85025

== ENCOUNTER → 2018-12-17 08:36 | Outpatient (CLI) | payer MEDICARE, OTHER, SELFPAY ==
--- NOTE | 2018-12-17 | DI.US.S_ITS ---
PROCEDURE: US CAROTID DOPPLER BI INDICATIONS: HISTORY TIA TECHNIQUE: Color and pulse Doppler interrogation was performed of both carotid systems, with image documentation and velocity measurements. COMPARISON: None. FINDINGS: Stenosis calculations are based on SRU (Society of Radiologists in Ultrasound) criteria. Right side: Brachial blood pressure: 128/70 mm Hg. Common carotid artery peak systolic velocity: 60 cm/sec. Internal carotid artery peak systolic velocity: 93 cm/sec. Internal carotid artery end diastolic velocity: 47 cm/sec. External carotid artery peak systolic velocity: 65 cm/sec. ICA/CCA peak systolic ratio: 1.5. Moody scale imaging description: Mild scattered plaque. Percent internal carotid artery stenosis: Less than 50%. Vertebral artery: Flow direction is antegrade. Left side: Brachial blood pressure: 120/70 mm Hg. Common carotid artery peak systolic velocity: 76 cm/sec. Internal carotid artery peak systolic velocity: 69 cm/sec. Internal carotid artery end diastolic velocity: 26 cm/sec. External carotid artery peak systolic velocity: 77 cm/sec. ICA/CCA peak systolic ratio: 0.9. Moody scale imaging description: Mild scattered plaque. Percent internal carotid artery stenosis: Less than 50%. Vertebral artery: Flow direction is antegrade. IMPRESSION: Less than 50% bilateral internal carotid artery stenosis. Dictated by: Driss Frye RRA Interpreted: Hanny Root MD on 12/17/2018 at 9:49 Approved by: Hanny Root MD, PhD on 12/17/2018 at 9:56
--- NOTE | 2018-12-17 13:00 | DI.ECHO.S_ITS ---
Echocardiogram Report + + :Name: LATOYA VOGT Study Date: 12/17/2018 Height: 65 in : :[facility] Weight: 128 lb : : Gender: Female BSA: 1.6 m2 : :: 1940 Age: 78 yrs BP: 128/84 mmHg: :Reason For Study: AFLUTTER : : Performed By: [facility] Staff : :Referring: CARROLL MARTINEZ : + + Interpretation Summary The ejection fraction is estimated to be 55-60%. There is trace mitral regurgitation. There is mild aortic regurgitation. There is mild aortic valve sclerosis. There is mild tricuspid regurgitation. The right ventricular systolic pressure is estimated to be at least 23 mmHg based on an estimated right atrial pressure of 3 mm Hg. Procedure: A two-dimensional transthoracic echocardiogram with color flow and Doppler was performed. The study quality was technically good. Comparison is made with the echocardiogram of 01/26/14. The patient was in normal sinus rhythm during the exam. Left Ventricle: The left ventricle is normal in size. There is normal left ventricular wall thickness. The ejection fraction is estimated to be 55-60%. Left ventricular wall motion is normal. Right Ventricle: The right ventricle is normal in size and function. Atria: The left atrium is mildly dilated. Right atrial size is normal. The interatrial septum is intact with no evidence for an atrial septal defect. Mitral Valve: The mitral valve is normal in structure and function. There is trace mitral regurgitation. Aortic Valve: The aortic valve is trileaflet. There is mild aortic valve sclerosis. The aortic valve opens well. There is mild aortic regurgitation. Tricuspid Valve: The tricuspid valve is normal in structure and function. There is mild tricuspid regurgitation. The right ventricular systolic pressure is estimated to be at least 23 mmHg based on an estimated right atrial pressure of 3 mm Hg. Pulmonic Valve: The pulmonic valve is not well visualized. Great Vessels: The aortic root is normal size. The dimensions of the ascending aorta are normal. The pulmonary artery is normal size. The IVC is of normal diameter and collapses greater than 50% with a sniff. This suggests a low right atrial pressure of 3 mm Hg. Pericardium/ Pleura There is no pericardial effusion. There is no pleural effusion. MMode/2D Measurements & Calculations LVIDd: 4.2 cm LVOT diam: 1.9 cm LVIDs: 2.9 cm Ao root diam: 3.1 cm FS: 30.2 % Aortic Jxn: 2.5 cm EPSS: 0.53 cm asc Aorta Diam: 3.1 cm IVSd: 1.0 cm LVPWd: 1.0 cm LV manning. diameter/BSA (cm/m^2): 2.6 LV sys. diameter/BSA (cm/m^2): 1.8 LA A2 area: 22.6 cm2 RA long axis: 4.4 cm LA A4 area: 14.8 cm2 RA area: 12.6 cm2 LA length (vol): 4.4 cm RA vol: 30.6 ml LA vol: 64.8 ml RA : 18.7 ml/m2 LA vol index: 39.6 ml/m2 IVC diam: 1.5 cm TAPSE: 1.9 cm Doppler Measurements & Calculations Ao V2 max: 130.5 cm/sec LVOT Max Parth: 76.6 cm/sec Ao V2 mean: 93.4 cm/sec LV V1 max P.3 mmHg Ao max P.8 mmHg LV V1 VTI: 19.0 cm Ao mean P.9 mmHg TONYA(I,D): 1.8 cm2 Ao V2 VTI: 30.0 cm TONYA(V,D): 1.7 cm2 sev ratio: 0.63 TONYA indexed to BSA (cm^2/m^2): 1.1 AI P1/2t: 444.8 msec AI dec slope: 283.9 cm/sec2 MV E max parth: 64.4 cm/sec TR max parth: 225.1 cm/sec MV A max parth: 75.9 cm/sec TR max P.3 mmHg MV E/A: 0.85 PA V2 max: 52.1 cm/sec MV dec time: 0.33 sec PA V2 mean: 36.9 cm/sec PA mean P.62 mmHg PA Accel Time: 0.18 sec SV(LVOT): 53.8 ml _ Reading Physician:04:30 PM
== END ==
PROVIDERS: Family Provider Internal Medicine Hematology; PCP Internal Medicine; Visit Provider Internal Medicine
DX: I08.2 Rheumatic disorders of both aortic and tricuspid valves (principal); I48.92 Unspecified atrial flutter; D69.3 Immune thrombocytopenic purpura; Z86.73 Personal history of transient ischemic attack (TIA), and cerebral infarction without residual deficits
CPT/HCPCS: 36415; 80076; 85025; 93306; 93880

== ENCOUNTER → 2018-12-17 10:19 | Outpatient (CLI) | payer MEDICARE, OTHER, SELFPAY ==
[2018-12-17 10:52] LABS: Add Manual Diff / Slide Review NO; Basophils Absolute Auto 200 /uL (0-100); Basophils Percent Auto 1.7 % (0-2); Eosinophils Absolute Auto 300 /uL (0-450); Eosinophils Percent Auto 2.8 % (2-4); Hemoglobin 13.4 g/dL (12.0-16.0); Lymphocytes Absolute Auto 1700 /uL (1100-4500); Lymphocytes Percent Auto 17.9 % (25-40); Mean Corpuscular HGB Conc 33.6 % (30-36); Mean Corpuscular Hemoglobin 31.4 PG (26-34); Mean Corpuscular Volume 93.5 fL (80-100); Monocytes Absolute Auto 600 /uL (0-900); Monocytes Percent Auto 5.7 % (3-14); Neutrophils Absolute Auto 7000 /uL (1500-7000); Neutrophils Percent Auto 71.9 % (50-75); Platelet Count 68 X10^3/uL (150-400); Red Blood Cell Count 4.28 X10^6/uL (4.0-5.2); Red Cell Distribution Width 14.7 % (11.6-14.8); White Blood Cell Count 9.8 X10^3/uL (4.5-11.0)
[2018-12-17 11:06] LABS: Alanine Aminotransferase 16 IU/L (<35); Albumin 4.7 g/dL (3.5-5.0); Albumin Globulin Ratio 1.6 (1.0-2.8); Alkaline Phosphatase 66 U/L (38-126); Aspartate Aminotransferase 29 IU/L (14-36); Bilirubin Unconjugated 0.8 mg/dL (0.0-1.1); HEMOLYSIS < 15 (0-50); Total Protein 7.7 g/dL (6.3-8.2)
== END ==
PROVIDERS: PCP Internal Medicine; Visit Provider Internal Medicine Hematology
DX: D69.3 Immune thrombocytopenic purpura (principal)
CPT/HCPCS: 36415; 80076; 85025

== ENCOUNTER → 2018-12-24 12:07 | Outpatient (CLI) | payer MEDICARE, OTHER, SELFPAY ==
[2018-12-24 12:24] LABS: Add Manual Diff / Slide Review NO; Basophils Absolute Auto 200 /uL (0-100); Basophils Percent Auto 1.9 % (0-2); Eosinophils Absolute Auto 400 /uL (0-450); Eosinophils Percent Auto 3.3 % (2-4); Hematocrit 37.7 % (36-46); Lymphocytes Absolute Auto 3900 /uL (1100-4500); Lymphocytes Percent Auto 34.2 % (25-40); Mean Corpuscular HGB Conc 34.5 % (30-36); Mean Corpuscular Hemoglobin 31.9 PG (26-34); Mean Corpuscular Volume 92.5 fL (80-100); Monocytes Absolute Auto 900 /uL (0-900); Monocytes Percent Auto 8.3 % (3-14); Neutrophils Absolute Auto 5900 /uL (1500-7000); Neutrophils Percent Auto 52.3 % (50-75); Platelet Count 99 X10^3/uL (150-400); Red Blood Cell Count 4.08 X10^6/uL (4.0-5.2); Red Cell Distribution Width 14.8 % (11.6-14.8); White Blood Cell Count 11.3 X10^3/uL (4.5-11.0)
== END ==
PROVIDERS: Family Provider Internal Medicine; PCP Internal Medicine; Visit Provider Internal Medicine Hematology
DX: D69.3 Immune thrombocytopenic purpura (principal)
CPT/HCPCS: 36415; 85025

== ENCOUNTER → 2019-01-05 10:21 | Outpatient (CLI) | payer MEDICARE, OTHER, SELFPAY ==
[2019-01-05 11:04] LABS: Add Manual Diff / Slide Review NO; Basophils Absolute Auto 200 /uL (0-100); Basophils Percent Auto 1.6 % (0-2); Eosinophils Absolute Auto 100 /uL (0-450); Eosinophils Percent Auto 1.2 % (2-4); Hematocrit 38.2 % (36-46); Lymphocytes Absolute Auto 1800 /uL (1100-4500); Lymphocytes Percent Auto 14.9 % (25-40); Mean Corpuscular HGB Conc 34.1 % (30-36); Mean Corpuscular Hemoglobin 31.1 PG (26-34); Mean Corpuscular Volume 91.3 fL (80-100); Monocytes Absolute Auto 600 /uL (0-900); Monocytes Percent Auto 5.2 % (3-14); Neutrophils Absolute Auto 9200 /uL (1500-7000); Neutrophils Percent Auto 77.1 % (50-75); Platelet Count 121 X10^3/uL (150-400); Red Blood Cell Count 4.18 X10^6/uL (4.0-5.2); Red Cell Distribution Width 14.4 % (11.6-14.8); White Blood Cell Count 11.9 X10^3/uL (4.5-11.0)
[2019-01-05 11:14] LABS: Alanine Aminotransferase 16 IU/L (<35); Albumin 4.6 g/dL (3.5-5.0); Albumin Globulin Ratio 1.6 (1.0-2.8); Alkaline Phosphatase 70 U/L (38-126); Aspartate Aminotransferase 26 IU/L (14-36); Bilirubin Total 0.8 mg/dL (0.2-1.3); Bilirubin Unconjugated 0.7 mg/dL (0.0-1.1); Globulin 2.8 g/dL (1.7-4.1); HEMOLYSIS < 15 (0-50); Total Protein 7.4 g/dL (6.3-8.2)
== END ==
PROVIDERS: PCP Internal Medicine; Visit Provider Internal Medicine Hematology
DX: D69.3 Immune thrombocytopenic purpura (principal)
CPT/HCPCS: 36415; 80076; 85025

== ENCOUNTER → 2019-01-11 18:47 | Outpatient (ROUT) | payer MEDICARE, OTHER, SELFPAY | PROVIDERS: PCP Internal Medicine; Visit Provider Internal Medicine | DX: R35.0 Frequency of micturition (principal) | CPT/HCPCS: 87077; 87086; 87186 ==

== ENCOUNTER → 2019-01-20 10:18 | Outpatient (CLI) | payer MEDICARE, OTHER, SELFPAY ==
[2019-01-20 10:52] LABS: Add Manual Diff / Slide Review NO; Basophils Absolute Auto 200 /uL (0-100); Basophils Percent Auto 2.3 % (0-2); Eosinophils Absolute Auto 300 /uL (0-450); Eosinophils Percent Auto 3.3 % (2-4); Hematocrit 36.7 % (36-46); Hemoglobin 12.6 g/dL (12.0-16.0); Lymphocytes Absolute Auto 2600 /uL (1100-4500); Mean Corpuscular HGB Conc 34.4 % (30-36); Mean Corpuscular Hemoglobin 31.5 PG (26-34); Mean Corpuscular Volume 91.6 fL (80-100); Monocytes Absolute Auto 700 /uL (0-900); Monocytes Percent Auto 7.3 % (3-14); Neutrophils Absolute Auto 6400 /uL (1500-7000); Neutrophils Percent Auto 62.1 % (50-75); Platelet Count 60 X10^3/uL (150-400); Red Cell Distribution Width 14.7 % (11.6-14.8); White Blood Cell Count 10.2 X10^3/uL (4.5-11.0)
[2019-01-20 11:02] LABS: Alanine Aminotransferase 12 IU/L (<35); Albumin 4.4 g/dL (3.5-5.0); Albumin Globulin Ratio 1.6 (1.0-2.8); Alkaline Phosphatase 64 U/L (38-126); Aspartate Aminotransferase 22 IU/L (14-36); Bilirubin Total 0.9 mg/dL (0.2-1.3); Bilirubin Unconjugated 0.8 mg/dL (0.0-1.1); Globulin 2.8 g/dL (1.7-4.1); HEMOLYSIS < 15 (0-50); Total Protein 7.2 g/dL (6.3-8.2)
== END ==
PROVIDERS: Family Provider Internal Medicine; PCP Internal Medicine; Visit Provider Internal Medicine Hematology
DX: D69.3 Immune thrombocytopenic purpura (principal)
CPT/HCPCS: 36415; 80076; 85025

== ENCOUNTER → 2019-01-27 10:04 | Outpatient (CLI) | payer MEDICARE, OTHER, SELFPAY ==
[2019-01-27 10:17] LABS: Add Manual Diff / Slide Review NO; Basophils Absolute Auto 200 /uL (0-100); Basophils Percent Auto 1.7 % (0-2); Eosinophils Absolute Auto 200 /uL (0-450); Eosinophils Percent Auto 1.7 % (2-4); Hematocrit 38.4 % (36-46); Hemoglobin 12.9 g/dL (12.0-16.0); Lymphocytes Absolute Auto 1900 /uL (1100-4500); Lymphocytes Percent Auto 13.3 % (25-40); Mean Corpuscular HGB Conc 33.6 % (30-36); Mean Corpuscular Hemoglobin 31.1 PG (26-34); Mean Corpuscular Volume 92.6 fL (80-100); Monocytes Absolute Auto 900 /uL (0-900); Monocytes Percent Auto 6.1 % (3-14); Neutrophils Absolute Auto 11000 /uL (1500-7000); Neutrophils Percent Auto 77.2 % (50-75); Red Blood Cell Count 4.14 X10^6/uL (4.0-5.2); Red Cell Distribution Width 14.5 % (11.6-14.8); White Blood Cell Count 14.2 X10^3/uL (4.5-11.0)
--- NOTE | 2019-01-27 10:40 | PC.NURSE ---
Critical platelet count called into [facility] PRADHAN by Asif in lab. This financial writer contacted Asif in lab and informed him that this is not an pt seen in our clinic or by our providers. Asif verbalizes understanding. Result to be called into to pt's provider by lab.
[2019-01-27 10:50] LABS: Platelet Count 13 X10^3/uL (150-400)
[2019-01-27 11:01] LABS: RBC Morphology Normal Morphology
== END ==
PROVIDERS: PCP Internal Medicine; Visit Provider Internal Medicine Hematology
DX: D69.3 Immune thrombocytopenic purpura (principal)
CPT/HCPCS: 36415; 85025

== ENCOUNTER → 2019-02-02 09:58 | Outpatient (CLI) | payer MEDICARE, OTHER, SELFPAY ==
[2019-02-02 10:20] LABS: Add Manual Diff / Slide Review NO; Basophils Absolute Auto 200 /uL (0-100); Basophils Percent Auto 1.3 % (0-2); Eosinophils Absolute Auto 200 /uL (0-450); Eosinophils Percent Auto 1.6 % (2-4); Hematocrit 34.7 % (36-46); Hemoglobin 11.9 g/dL (12.0-16.0); Lymphocytes Absolute Auto 2000 /uL (1100-4500); Lymphocytes Percent Auto 14.4 % (25-40); Mean Corpuscular HGB Conc 34.3 % (30-36); Mean Corpuscular Hemoglobin 31.3 PG (26-34); Mean Corpuscular Volume 91.1 fL (80-100); Monocytes Absolute Auto 900 /uL (0-900); Monocytes Percent Auto 6.6 % (3-14); Neutrophils Absolute Auto 10500 /uL (1500-7000); Neutrophils Percent Auto 76.1 % (50-75); Platelet Count 86 X10^3/uL (150-400); Red Blood Cell Count 3.81 X10^6/uL (4.0-5.2); Red Cell Distribution Width 14.7 % (11.6-14.8); White Blood Cell Count 13.9 X10^3/uL (4.5-11.0)
[2019-02-02 10:25] LABS: Alanine Aminotransferase 17 IU/L (<35); Albumin 4.3 g/dL (3.5-5.0); Albumin Globulin Ratio 1.2 (1.0-2.8); Alkaline Phosphatase 62 U/L (38-126); Aspartate Aminotransferase 26 IU/L (14-36); Bilirubin Total 0.7 mg/dL (0.2-1.3); Bilirubin Unconjugated 0.7 mg/dL (0.0-1.1); Globulin 3.7 g/dL (1.7-4.1); HEMOLYSIS < 15 (0-50)
== END ==
PROVIDERS: PCP Internal Medicine; Visit Provider Internal Medicine Hematology
DX: D69.3 Immune thrombocytopenic purpura (principal)
CPT/HCPCS: 36415; 80076; 85025

== ENCOUNTER → 2019-02-11 14:41 | Outpatient (CLI) | payer MEDICARE, OTHER, SELFPAY ==
[2019-02-11 15:00] LABS: Add Manual Diff / Slide Review NO; Basophils Absolute Auto 200 /uL (0-100); Basophils Percent Auto 1.9 % (0-2); Eosinophils Absolute Auto 400 /uL (0-450); Eosinophils Percent Auto 3.5 % (2-4); Hematocrit 36.8 % (36-46); Hemoglobin 12.4 g/dL (12.0-16.0); Lymphocytes Absolute Auto 2200 /uL (1100-4500); Lymphocytes Percent Auto 17.4 % (25-40); Mean Corpuscular HGB Conc 33.8 % (30-36); Mean Corpuscular Volume 91.8 fL (80-100); Monocytes Absolute Auto 800 /uL (0-900); Monocytes Percent Auto 6.5 % (3-14); Neutrophils Absolute Auto 8700 /uL (1500-7000); Neutrophils Percent Auto 70.7 % (50-75); Platelet Count 196 X10^3/uL (150-400); Red Blood Cell Count 4.01 X10^6/uL (4.0-5.2); Red Cell Distribution Width 14.8 % (11.6-14.8); White Blood Cell Count 12.4 X10^3/uL (4.5-11.0)
== END ==
PROVIDERS: PCP Internal Medicine; Visit Provider Internal Medicine Hematology
DX: D69.3 Immune thrombocytopenic purpura (principal)
CPT/HCPCS: 36415; 85025

== ENCOUNTER → 2019-02-19 08:54 | Outpatient (CLI) | payer MEDICARE, OTHER, SELFPAY ==
[2019-02-19 09:30] LABS: Add Manual Diff / Slide Review NO; Basophils Absolute Auto 200 /uL (0-100); Eosinophils Absolute Auto 500 /uL (0-450); Eosinophils Percent Auto 4.5 % (2-4); Hematocrit 38.5 % (36-46); Hemoglobin 13.1 g/dL (12.0-16.0); Lymphocytes Absolute Auto 3200 /uL (1100-4500); Mean Corpuscular HGB Conc 33.9 % (30-36); Mean Corpuscular Hemoglobin 30.9 PG (26-34); Mean Corpuscular Volume 91.1 fL (80-100); Monocytes Absolute Auto 900 /uL (0-900); Monocytes Percent Auto 8.3 % (3-14); Neutrophils Absolute Auto 6300 /uL (1500-7000); Neutrophils Percent Auto 56.2 % (50-75); Red Blood Cell Count 4.23 X10^6/uL (4.0-5.2); Red Cell Distribution Width 14.6 % (11.6-14.8); White Blood Cell Count 11.1 X10^3/uL (4.5-11.0)
[2019-02-19 09:56] LABS: Acanthocytes 1+
[2019-02-19 11:08] LABS: Platelet Count 9 X10^3/uL (150-400)
== END ==
PROVIDERS: PCP Internal Medicine; Visit Provider Internal Medicine Hematology
DX: D69.3 Immune thrombocytopenic purpura (principal)
CPT/HCPCS: 36415; 85025

== ENCOUNTER → 2019-02-22 11:40 | Outpatient (CLI) | payer MEDICARE, OTHER, SELFPAY ==
[2019-02-22 12:11] LABS: Add Manual Diff / Slide Review NO; Basophils Absolute Auto 200 /uL (0-100); Eosinophils Absolute Auto 400 /uL (0-450); Eosinophils Percent Auto 3.6 % (2-4); Hematocrit 37.9 % (36-46); Hemoglobin 12.8 g/dL (12.0-16.0); Lymphocytes Absolute Auto 2100 /uL (1100-4500); Lymphocytes Percent Auto 21.1 % (25-40); Mean Corpuscular HGB Conc 33.7 % (30-36); Mean Corpuscular Hemoglobin 31.1 PG (26-34); Mean Corpuscular Volume 92.3 fL (80-100); Monocytes Absolute Auto 700 /uL (0-900); Monocytes Percent Auto 7.3 % (3-14); Neutrophils Absolute Auto 6700 /uL (1500-7000); Red Blood Cell Count 4.11 X10^6/uL (4.0-5.2); Red Cell Distribution Width 14.6 % (11.6-14.8); White Blood Cell Count 10.1 X10^3/uL (4.5-11.0)
[2019-02-22 12:18] LABS: Platelet Count 6 X10^3/uL (150-400)
[2019-02-22 13:08] LABS: Platelet Estimate Decreased on smear; RBC Morphology Normal Morphology
== END ==
PROVIDERS: PCP Internal Medicine; Visit Provider Internal Medicine Hematology
DX: D69.3 Immune thrombocytopenic purpura (principal)
CPT/HCPCS: 36415; 85025

== ENCOUNTER → 2019-02-24 10:35 | Outpatient (CLI) | payer MEDICARE, OTHER, SELFPAY ==
[2019-02-24 10:59] LABS: Add Manual Diff / Slide Review NO; Basophils Absolute Auto 200 /uL (0-100); Basophils Percent Auto 1.6 % (0-2); Eosinophils Absolute Auto 300 /uL (0-450); Eosinophils Percent Auto 1.8 % (2-4); Hematocrit 38.1 % (36-46); Hemoglobin 12.7 g/dL (12.0-16.0); Lymphocytes Absolute Auto 3400 /uL (1100-4500); Lymphocytes Percent Auto 23.6 % (25-40); Mean Corpuscular HGB Conc 33.3 % (30-36); Mean Corpuscular Hemoglobin 30.7 PG (26-34); Mean Corpuscular Volume 92.4 fL (80-100); Monocytes Absolute Auto 1200 /uL (0-900); Monocytes Percent Auto 8.7 % (3-14); Neutrophils Absolute Auto 9200 /uL (1500-7000); Neutrophils Percent Auto 64.3 % (50-75); Platelet Count 40 X10^3/uL (150-400); Red Blood Cell Count 4.13 X10^6/uL (4.0-5.2); Red Cell Distribution Width 14.6 % (11.6-14.8); White Blood Cell Count 14.3 X10^3/uL (4.5-11.0)
== END ==
PROVIDERS: PCP Internal Medicine; Visit Provider Internal Medicine Hematology
DX: D69.3 Immune thrombocytopenic purpura (principal)
CPT/HCPCS: 36415; 85025

== ENCOUNTER → 2019-02-27 09:13 | Outpatient (CLI) | payer MEDICARE, OTHER, SELFPAY ==
[2019-02-27 09:54] LABS: Add Manual Diff / Slide Review NO; Basophils Absolute Auto 100 /uL (0-100); Basophils Percent Auto 0.8 % (0-2); Eosinophils Absolute Auto 200 /uL (0-450); Eosinophils Percent Auto 1.1 % (2-4); Hemoglobin 12.5 g/dL (12.0-16.0); Lymphocytes Absolute Auto 1500 /uL (1100-4500); Lymphocytes Percent Auto 9.5 % (25-40); Mean Corpuscular Hemoglobin 30.4 PG (26-34); Mean Corpuscular Volume 92.3 fL (80-100); Monocytes Absolute Auto 800 /uL (0-900); Monocytes Percent Auto 4.9 % (3-14); Neutrophils Absolute Auto 13700 /uL (1500-7000); Neutrophils Percent Auto 83.7 % (50-75); Platelet Count 190 X10^3/uL (150-400); Red Blood Cell Count 4.11 X10^6/uL (4.0-5.2); Red Cell Distribution Width 15.1 % (11.6-14.8); White Blood Cell Count 16.3 X10^3/uL (4.5-11.0)
== END ==
PROVIDERS: PCP Internal Medicine; Visit Provider Internal Medicine Hematology
DX: D69.3 Immune thrombocytopenic purpura (principal)
CPT/HCPCS: 36415; 85025

== ENCOUNTER → 2019-03-03 10:42 | Outpatient (CLI) | payer MEDICARE, OTHER, SELFPAY ==
[2019-03-03 11:26] LABS: Add Manual Diff / Slide Review NO; Basophils Absolute Auto 200 /uL (0-100); Basophils Percent Auto 1.3 % (0-2); Eosinophils Absolute Auto 100 /uL (0-450); Eosinophils Percent Auto 0.4 % (2-4); Hematocrit 38.9 % (36-46); Hemoglobin 13.1 g/dL (12.0-16.0); Lymphocytes Absolute Auto 1100 /uL (1100-4500); Lymphocytes Percent Auto 7.1 % (25-40); Mean Corpuscular HGB Conc 33.6 % (30-36); Mean Corpuscular Hemoglobin 30.7 PG (26-34); Mean Corpuscular Volume 91.5 fL (80-100); Monocytes Absolute Auto 400 /uL (0-900); Monocytes Percent Auto 2.7 % (3-14); Neutrophils Absolute Auto 13400 /uL (1500-7000); Neutrophils Percent Auto 88.5 % (50-75); Platelet Count 530 X10^3/uL (150-400); Red Blood Cell Count 4.25 X10^6/uL (4.0-5.2); Red Cell Distribution Width 14.8 % (11.6-14.8); White Blood Cell Count 15.2 X10^3/uL (4.5-11.0)
== END ==
PROVIDERS: PCP Internal Medicine; Visit Provider Internal Medicine Hematology
DX: D69.3 Immune thrombocytopenic purpura (principal)
CPT/HCPCS: 36415; 85025

== ENCOUNTER → 2019-03-10 15:22 | Outpatient (CLI) | payer MEDICARE, OTHER, SELFPAY ==
[2019-03-10 16:02] LABS: Add Manual Diff / Slide Review NO; Basophils Absolute Auto 100 /uL (0-100); Basophils Percent Auto 0.9 % (0-2); Eosinophils Absolute Auto 0 /uL (0-450); Eosinophils Percent Auto 0.3 % (2-4); Hemoglobin 12.1 g/dL (12.0-16.0); Lymphocytes Absolute Auto 1500 /uL (1100-4500); Lymphocytes Percent Auto 11.5 % (25-40); Mean Corpuscular HGB Conc 33.6 % (30-36); Mean Corpuscular Hemoglobin 30.6 PG (26-34); Monocytes Absolute Auto 400 /uL (0-900); Monocytes Percent Auto 3.3 % (3-14); Neutrophils Absolute Auto 11200 /uL (1500-7000); Platelet Count 522 X10^3/uL (150-400); Red Blood Cell Count 3.95 X10^6/uL (4.0-5.2); Red Cell Distribution Width 14.6 % (11.6-14.8); White Blood Cell Count 13.3 X10^3/uL (4.5-11.0)
== END ==
PROVIDERS: PCP Internal Medicine; Visit Provider Internal Medicine Hematology
DX: D69.3 Immune thrombocytopenic purpura (principal)
CPT/HCPCS: 36415; 85025

== ENCOUNTER → 2019-03-15 09:09 | Outpatient (CLI) | payer MEDICARE, OTHER, SELFPAY ==
--- NOTE | 2019-03-15 | DI.CT.S_ITS ---
PROCEDURE: CT ANGIO HEAD AND NECK INDICATIONS: Transient cerebral ischemic attack, unspecified TECHNIQUE: Pre-contrast 4.5 mm thick sections acquired from the foramen magnum to the vertex. After the administration of intravenous contrast, 1 mm thick sections acquired from the aortic arch through the [place] of [place]. Post-contrast 4.5 mm thick sections then re-acquired from the foramen magnum to the vertex. 3-dimensional roxbehw-rocjbnhdm-ddrqdzvcnu (MIP) and/or volume rendering reformats were acquired of the central intracranial vasculature and neck separately. COMPARISON: [facility], CT, HEAD WITHOUT CONTRAST, 10/12/2011, 10:52. [facility], US, US CAROTID DOPPLER BI, 12/17/2018, 21:06. FINDINGS: Image quality: Excellent. BRAIN: CSF spaces: Ventricles are normal in size and shape. Basal cisterns are patent. No extra-axial fluid collections. Brain: No midline shift. No intracranial bleeds or masses. Moody-white matter interface appears intact. Skull and face: Calvarium and facial bones appear intact, without suspicious lesions. Orbits appear normal. Sinuses: Sinuses and mastoids are clear. HEAD CT ANGIOGRAPHY: Anterior circulation: Intracranial internal carotid arteries are normal in size and flow. There is a diminutive left A1 segment, with a corresponding robust right A1 segment. This is considered to be a normal developmental variant of the [place], of typically no clinical consequence. The flow within the paired anterior cerebral arteries is otherwise normal and symmetric. The flow within the middle cerebral arteries is normal and symmetric. The anterior communicating artery is seen. No aneurysms are seen. Posterior circulation: Visualized portions of the vertebral arteries demonstrate normal caliber, and join to form a normal appearing basilar artery. Flow within the posterior cerebral arteries is normal and symmetric. No aneurysms are seen. NECK CT ANGIOGRAPHY: Carotid system: The great vessels demonstrate a conventional anatomy as they arise from the aortic arch. The origins of the common carotid arteries appear patent. The common carotid arteries demonstrate normal caliber and courses. The bifurcation regions are both widely patent. The internal carotid arteries demonstrate normal calibers and courses. Posterior circulation: The origins of the vertebral arteries both appear widely patent. The more superior extracranial portions of both vertebral arteries also demonstrate normal courses and calibers. They join to form a normal appearing basilar artery. Soft tissues: Visualized neck soft tissues demonstrate no suspicious abnormalities. Bones: No suspicious bony lesions. Visualized cervical spine appears normally aligned. Age-appropriate bony degenerative changes are seen. IMPRESSION: No imaging explanation is found for this patient's presenting history of a transient cerebral ischemic attack. No acute intracranial process is seen. No significant intracranial arterial abnormality can be seen. Within the arteries of the neck, no hemodynamically significant stenosis can be seen. Any quantitative measurements of stenosis were performed using NASCET criteria. Dictated by: Sam Paul M.D. on 03/15/2019 at 11:50 Approved by: Sam Paul M.D. on 03/15/2019 at 11:55
[2019-03-15 09:41] LABS: Add Manual Diff / Slide Review NO; Basophils Absolute Auto 200 /uL (0-100); Basophils Percent Auto 1.3 % (0-2); Eosinophils Absolute Auto 300 /uL (0-450); Eosinophils Percent Auto 2.5 % (2-4); Hematocrit 38.2 % (36-46); Hemoglobin 12.7 g/dL (12.0-16.0); Lymphocytes Absolute Auto 3400 /uL (1100-4500); Lymphocytes Percent Auto 27.4 % (25-40); Mean Corpuscular HGB Conc 33.3 % (30-36); Mean Corpuscular Hemoglobin 30.7 PG (26-34); Mean Corpuscular Volume 92.1 fL (80-100); Monocytes Absolute Auto 900 /uL (0-900); Monocytes Percent Auto 7.4 % (3-14); Neutrophils Absolute Auto 7600 /uL (1500-7000); Neutrophils Percent Auto 61.4 % (50-75); Platelet Count 286 X10^3/uL (150-400); Red Blood Cell Count 4.14 X10^6/uL (4.0-5.2); Red Cell Distribution Width 14.8 % (11.6-14.8); White Blood Cell Count 12.3 X10^3/uL (4.5-11.0)
[2019-03-15 09:45] LABS: INR 0.9 (0.9-1.3); Prothrombin Time 10.4 SECONDS (10.1-12.7)
[2019-03-15 09:47] LABS: PTT Partial Thromboplastin Tim 31 SECONDS (26.4-36.2)
[2019-03-15 09:48] LABS: Alanine Aminotransferase 19 IU/L (<35); Albumin 4.5 g/dL (3.5-5.0); Albumin Globulin Ratio 1.3 (1.0-2.8); Alkaline Phosphatase 52 U/L (38-126); Aspartate Aminotransferase 25 IU/L (14-36); Bilirubin Total 0.7 mg/dL (0.2-1.3); Blood Urea Nitrogen 22 mg/dL (7-17); Calcium 9.8 mg/dL (8.4-10.2); Carbon Dioxide 28 mmol/L (22-32); Chloride 101 mmol/L (98-107); Estimated Glomerular Filt Rate 53.6 mL/min (>60); Globulin 3.4 g/dL (1.7-4.1); Glucose 99 mg/dL (80-110); HEMOLYSIS < 15 (0-50); Potassium 3.7 mmol/L (3.4-5.1); Sodium 136 mmol/L (137-145); Total Protein 7.9 g/dL (6.3-8.2)
== END ==
PROVIDERS: PCP Internal Medicine; Referring Provider Internal Medicine; Visit Provider Physician Assistant
DX: G45.9 Transient cerebral ischemic attack, unspecified (principal)
CPT/HCPCS: 36415; 70496; 70498; 80053; 85025; 85610; 85730; Q9967

== ENCOUNTER → 2019-03-23 15:48 | Outpatient (CLI) | payer MEDICARE, OTHER, SELFPAY ==
[2019-03-23 16:03] LABS: Add Manual Diff / Slide Review NO; Basophils Absolute Auto 100 /uL (0-100); Basophils Percent Auto 0.7 % (0-2); Eosinophils Absolute Auto 100 /uL (0-450); Eosinophils Percent Auto 0.8 % (2-4); Hematocrit 38.3 % (36-46); Hemoglobin 12.9 g/dL (12.0-16.0); Lymphocytes Absolute Auto 1700 /uL (1100-4500); Lymphocytes Percent Auto 16.4 % (25-40); Mean Corpuscular HGB Conc 33.8 % (30-36); Mean Corpuscular Volume 91.7 fL (80-100); Monocytes Absolute Auto 500 /uL (0-900); Monocytes Percent Auto 4.9 % (3-14); Neutrophils Absolute Auto 8000 /uL (1500-7000); Neutrophils Percent Auto 77.2 % (50-75); Red Blood Cell Count 4.18 X10^6/uL (4.0-5.2); Red Cell Distribution Width 14.9 % (11.6-14.8); White Blood Cell Count 10.4 X10^3/uL (4.5-11.0)
[2019-03-23 16:20] LABS: Platelet Count 3 X10^3/uL (150-400)
[2019-03-23 16:21] LABS: Platelet Estimate Decreased on smear
--- NOTE | 2019-03-23 16:42 | PC.NURSE ---
received platelet results from [facility] in lab. This RN called Dr. Perez at [phone] and notified her by phone of results then transferred her to lab.
== END ==
PROVIDERS: PCP Internal Medicine; Referring Provider Internal Medicine Hematology; Visit Provider Internal Medicine Hematology
DX: D69.3 Immune thrombocytopenic purpura (principal)
CPT/HCPCS: 36415; 85025

== ENCOUNTER → 2019-03-25 08:33 | Outpatient (CLI) | payer MEDICARE, OTHER, SELFPAY ==
[2019-03-25 08:53] LABS: Add Manual Diff / Slide Review NO; Basophils Absolute Auto 100 /uL (0-100); Basophils Percent Auto 0.8 % (0-2); Eosinophils Absolute Auto 200 /uL (0-450); Eosinophils Percent Auto 0.9 % (2-4); Hematocrit 35.6 % (36-46); Hemoglobin 11.9 g/dL (12.0-16.0); Lymphocytes Absolute Auto 2200 /uL (1100-4500); Lymphocytes Percent Auto 13.3 % (25-40); Mean Corpuscular HGB Conc 33.4 % (30-36); Mean Corpuscular Hemoglobin 30.8 PG (26-34); Monocytes Absolute Auto 800 /uL (0-900); Neutrophils Absolute Auto 12900 /uL (1500-7000); Red Blood Cell Count 3.87 X10^6/uL (4.0-5.2); Red Cell Distribution Width 15.2 % (11.6-14.8); White Blood Cell Count 16.2 X10^3/uL (4.5-11.0)
[2019-03-25 08:59] LABS: Platelet Count 5 X10^3/uL (150-400)
[2019-03-25 09:04] LABS: Alanine Aminotransferase 14 IU/L (<35); Albumin 4.4 g/dL (3.5-5.0); Albumin Globulin Ratio 1.4 (1.0-2.8); Alkaline Phosphatase 53 U/L (38-126); Aspartate Aminotransferase 20 IU/L (14-36); Bilirubin Total 0.9 mg/dL (0.2-1.3); Bilirubin Unconjugated 0.9 mg/dL (0.0-1.1); Globulin 3.2 g/dL (1.7-4.1); HEMOLYSIS < 15 (0-50); Total Protein 7.6 g/dL (6.3-8.2)
[2019-03-25 09:41] LABS: Acanthocytes 1+
== END ==
PROVIDERS: PCP Internal Medicine; Referring Provider Internal Medicine Hematology; Visit Provider Internal Medicine Hematology
DX: D69.3 Immune thrombocytopenic purpura (principal)
CPT/HCPCS: 36415; 80076; 85025

== ENCOUNTER → 2019-03-29 14:12 | Outpatient (CLI) | payer MEDICARE, OTHER, SELFPAY ==
[2019-03-29 14:37] LABS: Add Manual Diff / Slide Review NO; Basophils Absolute Auto 100 /uL (0-100); Basophils Percent Auto 1.1 % (0-2); Eosinophils Absolute Auto 100 /uL (0-450); Eosinophils Percent Auto 0.6 % (2-4); Hematocrit 36.1 % (36-46); Hemoglobin 12.2 g/dL (12.0-16.0); Lymphocytes Absolute Auto 1300 /uL (1100-4500); Lymphocytes Percent Auto 13.9 % (25-40); Mean Corpuscular HGB Conc 33.9 % (30-36); Mean Corpuscular Hemoglobin 30.8 PG (26-34); Mean Corpuscular Volume 90.8 fL (80-100); Monocytes Absolute Auto 400 /uL (0-900); Monocytes Percent Auto 4.4 % (3-14); Neutrophils Absolute Auto 7400 /uL (1500-7000); Platelet Count 176 X10^3/uL (150-400); Red Blood Cell Count 3.97 X10^6/uL (4.0-5.2); Red Cell Distribution Width 15.3 % (11.6-14.8); White Blood Cell Count 9.2 X10^3/uL (4.5-11.0)
== END ==
PROVIDERS: PCP Internal Medicine; Referring Provider Internal Medicine Hematology; Visit Provider Internal Medicine Hematology
DX: D69.3 Immune thrombocytopenic purpura (principal)
CPT/HCPCS: 36415; 85025

== ENCOUNTER → 2019-04-05 12:41 | Outpatient (CLI) | payer MEDICARE, OTHER, SELFPAY ==
[2019-04-05 13:14] LABS: Add Manual Diff / Slide Review NO; Basophils Absolute Auto 100 /uL (0-100); Basophils Percent Auto 0.9 % (0-2); Eosinophils Absolute Auto 100 /uL (0-450); Eosinophils Percent Auto 0.5 % (2-4); Hematocrit 35.9 % (36-46); Hemoglobin 11.9 g/dL (12.0-16.0); Lymphocytes Absolute Auto 1400 /uL (1100-4500); Lymphocytes Percent Auto 8.5 % (25-40); Mean Corpuscular HGB Conc 33.3 % (30-36); Mean Corpuscular Hemoglobin 30.4 PG (26-34); Mean Corpuscular Volume 91.3 fL (80-100); Monocytes Absolute Auto 500 /uL (0-900); Neutrophils Absolute Auto 14000 /uL (1500-7000); Neutrophils Percent Auto 87.1 % (50-75); Red Cell Distribution Width 15.2 % (11.6-14.8); White Blood Cell Count 16.1 X10^3/uL (4.5-11.0)
[2019-04-05 13:38] LABS: Platelet Count 703 X10^3/uL (150-400)
[2019-04-05 13:42] LABS: Red Blood Cell Count 3.93 X10^6/uL (4.0-5.2)
== END ==
PROVIDERS: PCP Internal Medicine; Referring Provider Internal Medicine Hematology; Visit Provider Internal Medicine Hematology
DX: D69.3 Immune thrombocytopenic purpura (principal)
CPT/HCPCS: 36415; 85025

== ENCOUNTER → 2019-04-08 10:07 | Outpatient (CLI) | payer MEDICARE, OTHER, SELFPAY ==
[2019-04-08 10:48] LABS: Add Manual Diff / Slide Review NO; Basophils Absolute Auto 200 /uL (0-100); Basophils Percent Auto 0.8 % (0-2); Eosinophils Absolute Auto 300 /uL (0-450); Eosinophils Percent Auto 1.3 % (2-4); Hematocrit 34.6 % (36-46); Hemoglobin 11.8 g/dL (12.0-16.0); Lymphocytes Absolute Auto 3200 /uL (1100-4500); Lymphocytes Percent Auto 16.2 % (25-40); Mean Corpuscular Hemoglobin 30.9 PG (26-34); Mean Corpuscular Volume 90.9 fL (80-100); Monocytes Absolute Auto 1000 /uL (0-900); Monocytes Percent Auto 5.1 % (3-14); Neutrophils Absolute Auto 15000 /uL (1500-7000); Neutrophils Percent Auto 76.6 % (50-75); Platelet Count 800 X10^3/uL (150-400); Red Blood Cell Count 3.81 X10^6/uL (4.0-5.2); Red Cell Distribution Width 15.5 % (11.6-14.8); White Blood Cell Count 19.6 X10^3/uL (4.5-11.0)
[2019-04-08 11:15] LABS: Acanthocytes 1+; Anisocytosis 1+
== END ==
PROVIDERS: PCP Internal Medicine; Referring Provider Internal Medicine Hematology; Visit Provider Internal Medicine Hematology
DX: D69.3 Immune thrombocytopenic purpura (principal)
CPT/HCPCS: 36415; 85025

== ENCOUNTER → 2019-04-12 13:42 | Outpatient (CLI) | payer MEDICARE, OTHER, SELFPAY ==
[2019-04-12 14:23] LABS: Add Manual Diff / Slide Review NO; Basophils Absolute Auto 200 /uL (0-100); Basophils Percent Auto 1.6 % (0-2); Eosinophils Absolute Auto 300 /uL (0-450); Eosinophils Percent Auto 2.2 % (2-4); Lymphocytes Absolute Auto 4500 /uL (1100-4500); Lymphocytes Percent Auto 33.1 % (25-40); Mean Corpuscular HGB Conc 33.3 % (30-36); Mean Corpuscular Hemoglobin 30.2 PG (26-34); Mean Corpuscular Volume 90.7 fL (80-100); Monocytes Absolute Auto 800 /uL (0-900); Monocytes Percent Auto 6.2 % (3-14); Neutrophils Absolute Auto 7800 /uL (1500-7000); Neutrophils Percent Auto 56.9 % (50-75); Platelet Count 659 X10^3/uL (150-400); Red Blood Cell Count 3.97 X10^6/uL (4.0-5.2); Red Cell Distribution Width 15.5 % (11.6-14.8); White Blood Cell Count 13.7 X10^3/uL (4.5-11.0)
[2019-04-12 14:37] LABS: Alanine Aminotransferase 16 IU/L (<35); Albumin 4.5 g/dL (3.5-5.0); Albumin Globulin Ratio 1.4 (1.0-2.8); Alkaline Phosphatase 63 U/L (38-126); Aspartate Aminotransferase 22 IU/L (14-36); Bilirubin Total 0.5 mg/dL (0.2-1.3); Bilirubin Unconjugated 0.4 mg/dL (0.0-1.1); Globulin 3.3 g/dL (1.7-4.1); HEMOLYSIS < 15 (0-50); Total Protein 7.8 g/dL (6.3-8.2)
== END ==
PROVIDERS: PCP Internal Medicine; Referring Provider Internal Medicine Hematology; Visit Provider Internal Medicine Hematology
DX: D69.3 Immune thrombocytopenic purpura (principal)
CPT/HCPCS: 36415; 80076; 85025

== ENCOUNTER → 2019-04-20 06:47 | Outpatient (CLI) | payer MEDICARE, OTHER, SELFPAY ==
[2019-04-20 07:24] LABS: Add Manual Diff / Slide Review NO; Basophils Absolute Auto 100 /uL (0-100); Basophils Percent Auto 1.2 % (0-2); Eosinophils Absolute Auto 400 /uL (0-450); Eosinophils Percent Auto 3.4 % (2-4); Hematocrit 36.7 % (36-46); Hemoglobin 12.3 g/dL (12.0-16.0); Lymphocytes Absolute Auto 3800 /uL (1100-4500); Lymphocytes Percent Auto 30.8 % (25-40); Mean Corpuscular HGB Conc 33.5 % (30-36); Mean Corpuscular Hemoglobin 30.7 PG (26-34); Mean Corpuscular Volume 91.6 fL (80-100); Monocytes Absolute Auto 800 /uL (0-900); Monocytes Percent Auto 6.8 % (3-14); Neutrophils Absolute Auto 7200 /uL (1500-7000); Neutrophils Percent Auto 57.8 % (50-75); Platelet Count 197 X10^3/uL (150-400); Red Blood Cell Count 4.01 X10^6/uL (4.0-5.2); Red Cell Distribution Width 15.2 % (11.6-14.8); White Blood Cell Count 12.4 X10^3/uL (4.5-11.0)
== END ==
PROVIDERS: PCP Internal Medicine; Referring Provider Internal Medicine Hematology; Visit Provider Internal Medicine Hematology
DX: D69.3 Immune thrombocytopenic purpura (principal)
CPT/HCPCS: 36415; 85025

== ENCOUNTER → 2019-04-27 06:52 | Outpatient (CLI) | payer MEDICARE, OTHER, SELFPAY ==
[2019-04-27 07:33] LABS: Basophils Absolute Auto 200 /uL (0-100); Basophils Percent Auto 1.7 % (0-2); Eosinophils Absolute Auto 500 /uL (0-450); Lymphocytes Absolute Auto 5400 /uL (1100-4500); Neutrophils Absolute Auto 5600 /uL (1500-7000); White Blood Cell Count 12.7 X10^3/uL (4.5-11.0)
[2019-04-27 07:55] LABS: Eosinophils Percent Auto 4.2 % (2-4); Hematocrit 38.4 % (36-46); Hemoglobin 12.8 g/dL (12.0-16.0); Lymphocytes Percent Auto 42.7 % (25-40); Mean Corpuscular HGB Conc 33.2 % (30-36); Mean Corpuscular Hemoglobin 30.4 PG (26-34); Mean Corpuscular Volume 91.6 fL (80-100); Monocytes Absolute Auto 1000 /uL (0-900); Monocytes Percent Auto 7.6 % (3-14); Neutrophils Percent Auto 43.8 % (50-75); Red Blood Cell Count 4.19 X10^6/uL (4.0-5.2); Red Cell Distribution Width 15.5 % (11.6-14.8)
[2019-04-27 08:04] LABS: Add Manual Diff / Slide Review SLIDE REVIEW
[2019-04-27 08:08] LABS: Platelet Count 14 X10^3/uL (150-400)
[2019-04-27 08:09] LABS: Anisocytosis 1+
[2019-04-27 08:10] LABS: Platelet Estimate Decreased on smear
== END ==
PROVIDERS: PCP Internal Medicine; Referring Provider Internal Medicine Hematology; Visit Provider Internal Medicine Hematology
DX: D69.3 Immune thrombocytopenic purpura (principal)
CPT/HCPCS: 36415; 85025

== ENCOUNTER → 2019-05-04 06:45 | Outpatient (CLI) | payer MEDICARE, OTHER, SELFPAY ==
[2019-05-04 08:34] LABS: Add Manual Diff / Slide Review NO; Basophils Absolute Auto 100 /uL (0-100); Eosinophils Absolute Auto 200 /uL (0-450); Eosinophils Percent Auto 1.7 % (2-4); Hematocrit 38.2 % (36-46); Hemoglobin 12.8 g/dL (12.0-16.0); Lymphocytes Absolute Auto 4700 /uL (1100-4500); Lymphocytes Percent Auto 35.7 % (25-40); Mean Corpuscular HGB Conc 33.5 % (30-36); Mean Corpuscular Hemoglobin 30.5 PG (26-34); Mean Corpuscular Volume 91.1 fL (80-100); Monocytes Absolute Auto 1000 /uL (0-900); Monocytes Percent Auto 7.3 % (3-14); Neutrophils Absolute Auto 7100 /uL (1500-7000); Neutrophils Percent Auto 54.3 % (50-75); Platelet Count 197 X10^3/uL (150-400); Red Blood Cell Count 4.19 X10^6/uL (4.0-5.2); Red Cell Distribution Width 15.3 % (11.6-14.8); White Blood Cell Count 13.2 X10^3/uL (4.5-11.0)
== END ==
PROVIDERS: PCP Internal Medicine; Referring Provider Internal Medicine Hematology; Visit Provider Internal Medicine Hematology
DX: D69.3 Immune thrombocytopenic purpura (principal)
CPT/HCPCS: 36415; 85025

== ENCOUNTER → 2019-08-04 16:31 | Outpatient (CLI) | payer MEDICARE, OTHER, SELFPAY ==
[2019-08-04 17:03] LABS: Add Manual Diff / Slide Review NO; Basophils Absolute Auto 200 /uL (0-100); Basophils Percent Auto 1.5 % (0-2); Eosinophils Absolute Auto 300 /uL (0-450); Hemoglobin 12.5 g/dL (12.0-16.0); Lymphocytes Absolute Auto 3800 /uL (1100-4500); Lymphocytes Percent Auto 27.8 % (25-40); Mean Corpuscular Hemoglobin 29.9 PG (26-34); Mean Corpuscular Volume 90.6 fL (80-100); Monocytes Absolute Auto 1300 /uL (0-900); Monocytes Percent Auto 9.1 % (3-14); Neutrophils Absolute Auto 8200 /uL (1500-7000); Neutrophils Percent Auto 59.6 % (50-75); Platelet Count 325 X10^3/uL (150-400); Red Blood Cell Count 4.19 X10^6/uL (4.0-5.2); Red Cell Distribution Width 15.1 % (11.6-14.8); White Blood Cell Count 13.8 X10^3/uL (4.5-11.0)
== END ==
PROVIDERS: PCP Internal Medicine
DX: D69.3 Immune thrombocytopenic purpura (principal)
CPT/HCPCS: 36415; 85025

== ENCOUNTER → 2019-08-17 06:52 | Outpatient (CLI) | payer MEDICARE, OTHER, SELFPAY ==
--- NOTE | 2019-08-17 | DI.RAD.S_ITS ---
PROCEDURE: XR HIP W PEL IF DONE LT MIN 4V INDICATIONS: HIP PAIN TECHNIQUE: AP pelvis with lateral view(s) of the bilateral hip(s). COMPARISON: [facility], , HIP 2V RIGHT, 01/01/2010, 7:51. FINDINGS: Bones: No fractures or dislocations. Pelvic ring appears intact. No suspicious bony lesions. Soft tissues: The visualized bowel gas pattern is normal. No suspicious soft tissue calcifications. IMPRESSION: Symmetric mild hip joint osteoarthritis, only slightly worsened from the comparison right hip plain films 01/01/10. There appears to be significant convex leftward scoliosis partially visualized at the upper imaging margin involving the lumbosacral spine. Referred pain from nerve root impingement should be considered in this circumstance. Dictated by: Bismark Lee M.D. on 08/17/2019 at 8:11 Approved by: Bismark Lee M.D. on 08/17/2019 at 8:12
[2019-08-17 07:47] LABS: Add Manual Diff / Slide Review NO; Basophils Absolute Auto 200 /uL (0-100); Basophils Percent Auto 1.7 % (0-2); Eosinophils Absolute Auto 200 /uL (0-450); Eosinophils Percent Auto 1.8 % (2-4); Hematocrit 38.1 % (36-46); Hemoglobin 12.4 g/dL (12.0-16.0); Lymphocytes Absolute Auto 3900 /uL (1100-4500); Lymphocytes Percent Auto 36.5 % (25-40); Mean Corpuscular HGB Conc 32.6 % (30-36); Mean Corpuscular Hemoglobin 29.5 PG (26-34); Mean Corpuscular Volume 90.5 fL (80-100); Monocytes Absolute Auto 900 /uL (0-900); Neutrophils Absolute Auto 5600 /uL (1500-7000); Platelet Count 175 X10^3/uL (150-400); Red Blood Cell Count 4.21 X10^6/uL (4.0-5.2); Red Cell Distribution Width 15.2 % (11.6-14.8); White Blood Cell Count 10.7 X10^3/uL (4.5-11.0)
[2019-08-17 08:00] LABS: Alanine Aminotransferase 17 IU/L (<35); Albumin 4.5 g/dL (3.5-5.0); Albumin Globulin Ratio 1.5 (1.0-2.8); Alkaline Phosphatase 53 U/L (38-126); Aspartate Aminotransferase 26 IU/L (14-36); BUN Creatinine Ratio 20.7 (6-22); Blood Urea Nitrogen 19 mg/dL (7-17); Calcium 10.1 mg/dL (8.4-10.2); Carbon Dioxide 31 mmol/L (22-32); Chloride 105 mmol/L (98-107); Glucose 91 mg/dL (80-110); HEMOLYSIS < 15 (0-50); Potassium 5.3 mmol/L (3.4-5.1); Sodium 140 mmol/L (137-145); Total Protein 7.5 g/dL (6.3-8.2)
== END ==
PROVIDERS: PCP Internal Medicine; Referring Provider Internal Medicine; Visit Provider Internal Medicine
DX: M25.559 Pain in unspecified hip (principal); M16.0 Bilateral primary osteoarthritis of hip; M41.26 Other idiopathic scoliosis, lumbar region; E87.5 Hyperkalemia
CPT/HCPCS: 36415; 73522; 80048; 80076; 85025

== ENCOUNTER → 2019-09-10 06:52 | Outpatient (CLI) | payer MEDICARE, OTHER, SELFPAY ==
[2019-09-10 07:58] LABS: Add Manual Diff / Slide Review NO; Basophils Absolute Auto 200 /uL (0-100); Basophils Percent Auto 1.6 % (0-2); Eosinophils Absolute Auto 400 /uL (0-450); Eosinophils Percent Auto 3.3 % (2-4); Hematocrit 37.1 % (36-46); Hemoglobin 12.3 g/dL (12.0-16.0); Lymphocytes Absolute Auto 4400 /uL (1100-4500); Mean Corpuscular HGB Conc 33.3 % (30-36); Mean Corpuscular Hemoglobin 29.6 PG (26-34); Mean Corpuscular Volume 89.1 fL (80-100); Monocytes Absolute Auto 800 /uL (0-900); Monocytes Percent Auto 7.2 % (3-14); Neutrophils Absolute Auto 6000 /uL (1500-7000); Neutrophils Percent Auto 50.9 % (50-75); Platelet Count 260 X10^3/uL (150-400); Red Blood Cell Count 4.17 X10^6/uL (4.0-5.2); Red Cell Distribution Width 15.3 % (11.6-14.8); White Blood Cell Count 11.8 X10^3/uL (4.5-11.0)
[2019-09-10 08:13] LABS: BUN Creatinine Ratio 18.3 (6-22); Blood Urea Nitrogen 15 mg/dL (7-17); Calcium 9.9 mg/dL (8.4-10.2); Carbon Dioxide 28 mmol/L (22-32); Chloride 96 mmol/L (98-107); Estimated Glomerular Filt Rate > 60.0 mL/min (>60); Glucose 77 mg/dL (80-110); HEMOLYSIS 17 (0-50); Potassium 4.6 mmol/L (3.4-5.1); Sodium 132 mmol/L (137-145)
== END ==
PROVIDERS: PCP Internal Medicine; Referring Provider Internal Medicine Hematology; Visit Provider Internal Medicine
DX: D69.3 Immune thrombocytopenic purpura (principal); E87.5 Hyperkalemia
CPT/HCPCS: 36415; 80048; 85025

== ENCOUNTER → 2019-09-22 06:45 | Outpatient (CLI) | payer MEDICARE, OTHER, SELFPAY ==
[2019-09-22 08:09] LABS: Add Manual Diff / Slide Review NO; Basophils Absolute Auto 200 /uL (0-100); Basophils Percent Auto 1.8 % (0-2); Eosinophils Absolute Auto 300 /uL (0-450); Eosinophils Percent Auto 2.7 % (2-4); Hematocrit 37.1 % (36-46); Hemoglobin 12.5 g/dL (12.0-16.0); Lymphocytes Absolute Auto 3100 /uL (1100-4500); Lymphocytes Percent Auto 31.1 % (25-40); Mean Corpuscular HGB Conc 33.6 % (30-36); Mean Corpuscular Hemoglobin 29.8 PG (26-34); Mean Corpuscular Volume 88.8 fL (80-100); Monocytes Absolute Auto 800 /uL (0-900); Neutrophils Absolute Auto 5600 /uL (1500-7000); Neutrophils Percent Auto 56.4 % (50-75); Platelet Count 221 X10^3/uL (150-400); Red Blood Cell Count 4.18 X10^6/uL (4.0-5.2); Red Cell Distribution Width 14.9 % (11.6-14.8); White Blood Cell Count 9.9 X10^3/uL (4.5-11.0)
[2019-09-22 08:34] LABS: BUN Creatinine Ratio 17.9 (6-22); Blood Urea Nitrogen 17 mg/dL (7-17); Calcium 9.5 mg/dL (8.4-10.2); Carbon Dioxide 27 mmol/L (22-32); Chloride 98 mmol/L (98-107); Estimated Glomerular Filt Rate 56.7 mL/min (>60); Glucose 82 mg/dL (80-110); HEMOLYSIS < 15 (0-50); Potassium 4.4 mmol/L (3.4-5.1); Sodium 130 mmol/L (137-145)
[2019-09-22 08:48] LABS: Vitamin D 25 Hydroxy (D3) 48.4 ng/mL (30.0-100.0)
[2019-09-22 09:02] LABS: Sodium Urine Random 79 mmol/L (30-90)
[2019-09-22 09:06] LABS: Ferritin 14 ng/mL (11-264); TSH w/ Reflex to FT4 0.44 uIU/mL (0.47-4.68)
[2019-09-22 09:58] LABS: Free T4, Direct Thyroxine 1.06 ng/dL (0.78-2.19)
[2019-09-23 12:15] LABS: Osmolality Urine 462 mOsmol/kg (.); Osmolality, Serum 278 mOsmol/kg (280-301)
== END ==
PROVIDERS: PCP Internal Medicine; Referring Provider Internal Medicine; Visit Provider Internal Medicine
DX: D72.829 Elevated white blood cell count, unspecified (principal); L65.9 Nonscarring hair loss, unspecified; E87.1 Hypo-osmolality and hyponatremia; M81.8 Other osteoporosis without current pathological fracture
CPT/HCPCS: 36415; 80048; 82306; 82728; 83930; 83935; 84300; 84439; 84443; 85025

== ENCOUNTER → 2019-10-13 07:01 | Outpatient (CLI) | payer MEDICARE, OTHER, SELFPAY ==
[2019-10-13 08:40] LABS: Add Manual Diff / Slide Review NO; Basophils Absolute Auto 200 /uL (0-100); Eosinophils Absolute Auto 300 /uL (0-450); Eosinophils Percent Auto 2.6 % (2-4); Hematocrit 38.4 % (36-46); Hemoglobin 12.6 g/dL (12.0-16.0); Lymphocytes Absolute Auto 3600 /uL (1100-4500); Lymphocytes Percent Auto 31.2 % (25-40); Mean Corpuscular HGB Conc 32.9 % (30-36); Mean Corpuscular Hemoglobin 29.3 PG (26-34); Monocytes Absolute Auto 1000 /uL (0-900); Monocytes Percent Auto 8.4 % (3-14); Neutrophils Absolute Auto 6500 /uL (1500-7000); Neutrophils Percent Auto 55.8 % (50-75); Platelet Count 275 X10^3/uL (150-400); Red Blood Cell Count 4.31 X10^6/uL (4.0-5.2); Red Cell Distribution Width 14.7 % (11.6-14.8); White Blood Cell Count 11.7 X10^3/uL (4.5-11.0)
[2019-10-13 08:52] LABS: Alanine Aminotransferase 17 IU/L (<35); Albumin 4.5 g/dL (3.5-5.0); Albumin Globulin Ratio 1.7 (1.0-2.8); Alkaline Phosphatase 58 U/L (38-126); Aspartate Aminotransferase 26 IU/L (14-36); Bilirubin Total 0.6 mg/dL (0.2-1.3); Bilirubin Unconjugated 0.6 mg/dL (0.0-1.1); Globulin 2.7 g/dL (1.7-4.1); HEMOLYSIS < 15 (0-50); Total Protein 7.2 g/dL (6.3-8.2)
== END ==
PROVIDERS: PCP Internal Medicine; Referring Provider Internal Medicine Hematology; Visit Provider Internal Medicine Hematology
DX: D69.3 Immune thrombocytopenic purpura (principal)
CPT/HCPCS: 36415; 80076; 85025

== ENCOUNTER → 2019-11-03 10:26 | Outpatient (CLI) | payer MEDICARE, OTHER, SELFPAY ==
[2019-11-03 11:37] LABS: Add Manual Diff / Slide Review NO; Basophils Absolute Auto 200 /uL (0-100); Eosinophils Absolute Auto 400 /uL (0-450); Eosinophils Percent Auto 3.9 % (2-4); Hematocrit 38.7 % (36-46); Hemoglobin 13.1 g/dL (12.0-16.0); Lymphocytes Absolute Auto 3100 /uL (1100-4500); Lymphocytes Percent Auto 29.7 % (25-40); Mean Corpuscular HGB Conc 33.9 % (30-36); Mean Corpuscular Hemoglobin 30.4 PG (26-34); Mean Corpuscular Volume 89.6 fL (80-100); Monocytes Absolute Auto 1000 /uL (0-900); Neutrophils Absolute Auto 5600 /uL (1500-7000); Neutrophils Percent Auto 54.4 % (50-75); Platelet Count 126 X10^3/uL (150-400); Red Blood Cell Count 4.32 X10^6/uL (4.0-5.2); White Blood Cell Count 10.4 X10^3/uL (4.5-11.0)
== END ==
PROVIDERS: PCP Internal Medicine; Referring Provider Internal Medicine Hematology; Visit Provider Internal Medicine Hematology
DX: D69.3 Immune thrombocytopenic purpura (principal)
CPT/HCPCS: 36415; 85025

== ENCOUNTER → 2019-11-08 06:45 | Outpatient (CLI) | payer MEDICARE, OTHER, SELFPAY ==
[2019-11-08 08:17] LABS: Add Manual Diff / Slide Review NO; Basophils Absolute Auto 200 /uL (0-100); Basophils Percent Auto 1.6 % (0-2); Eosinophils Absolute Auto 300 /uL (0-450); Eosinophils Percent Auto 3.2 % (2-4); Hemoglobin 12.9 g/dL (12.0-16.0); Lymphocytes Absolute Auto 3700 /uL (1100-4500); Lymphocytes Percent Auto 36.2 % (25-40); Mean Corpuscular Hemoglobin 30.3 PG (26-34); Mean Corpuscular Volume 89.2 fL (80-100); Monocytes Absolute Auto 800 /uL (0-900); Monocytes Percent Auto 7.7 % (3-14); Neutrophils Absolute Auto 5200 /uL (1500-7000); Neutrophils Percent Auto 51.3 % (50-75); Platelet Count 119 X10^3/uL (150-400); Red Blood Cell Count 4.26 X10^6/uL (4.0-5.2); Red Cell Distribution Width 15.3 % (11.6-14.8); White Blood Cell Count 10.2 X10^3/uL (4.5-11.0)
[2019-11-08 08:22] LABS: Alanine Aminotransferase 18 IU/L (<35); Albumin 4.5 g/dL (3.5-5.0); Albumin Globulin Ratio 1.5 (1.0-2.8); Alkaline Phosphatase 50 U/L (38-126); Aspartate Aminotransferase 27 IU/L (14-36); BUN Creatinine Ratio 17.7 (6-22); Bilirubin Total 0.6 mg/dL (0.2-1.3); Blood Urea Nitrogen 17 mg/dL (7-17); Calcium 9.7 mg/dL (8.4-10.2); Carbon Dioxide 32 mmol/L (22-32); Chloride 93 mmol/L (98-107); Cholesterol 199 mg/dL (140-199); Estimated Glomerular Filt Rate 56.1 mL/min (>60); Globulin 3.1 g/dL (1.7-4.1); Glucose 94 mg/dL (80-110); HDL Cholesterol 93 mg/dL (40-60); HEMOLYSIS < 15 (0-50); LDL Cholesterol Calculated 86 mg/dL (<100); Potassium 3.9 mmol/L (3.4-5.1); Sodium 131 mmol/L (137-145); Total Protein 7.6 g/dL (6.3-8.2); Triglycerides 102 mg/dL (35-150)
[2019-11-08 08:37] LABS: Vitamin D 25 Hydroxy (D3) 43.1 ng/mL (30.0-100.0)
[2019-11-08 08:38] LABS: Free T3, Triiodothyronine Free 2.96 pg/mL (2.77-5.27)
[2019-11-08 08:52] LABS: TSH w/ Reflex to FT4 2.93 uIU/mL (0.47-4.68)
== END ==
PROVIDERS: PCP Physician Assistant; Referring Provider Physician Assistant; Visit Provider Physician Assistant
DX: R79.89 Other specified abnormal findings of blood chemistry (principal); E87.1 Hypo-osmolality and hyponatremia; I10 Essential (primary) hypertension; E78.2 Mixed hyperlipidemia
CPT/HCPCS: 36415; 80053; 80061; 82306; 84443; 84481; 85025

== ENCOUNTER → 2019-11-18 06:43 | Outpatient (CLI) | payer MEDICARE, OTHER, SELFPAY ==
[2019-11-18 08:47] LABS: Add Manual Diff / Slide Review NO; Basophils Absolute Auto 300 /uL (0-100); Basophils Percent Auto 2.9 % (0-2); Eosinophils Absolute Auto 700 /uL (0-450); Hematocrit 37.6 % (36-46); Hemoglobin 12.8 g/dL (12.0-16.0); Lymphocytes Absolute Auto 3500 /uL (1100-4500); Lymphocytes Percent Auto 32.6 % (25-40); Mean Corpuscular Hemoglobin 30.5 PG (26-34); Mean Corpuscular Volume 89.5 fL (80-100); Monocytes Absolute Auto 900 /uL (0-900); Monocytes Percent Auto 8.5 % (3-14); Neutrophils Absolute Auto 5400 /uL (1500-7000); Platelet Count 77 X10^3/uL (150-400); Red Cell Distribution Width 15.2 % (11.6-14.8); White Blood Cell Count 10.9 X10^3/uL (4.5-11.0)
== END ==
PROVIDERS: PCP Physician Assistant; Referring Provider Internal Medicine Hematology; Visit Provider Internal Medicine Hematology
DX: D69.3 Immune thrombocytopenic purpura (principal)
CPT/HCPCS: 36415; 85025

== ENCOUNTER → 2019-11-25 06:43 | Outpatient (CLI) | payer MEDICARE, OTHER, SELFPAY ==
[2019-11-25 08:07] LABS: Add Manual Diff / Slide Review NO; Basophils Absolute Auto 300 /uL (0-100); Basophils Percent Auto 2.9 % (0-2); Eosinophils Absolute Auto 600 /uL (0-450); Eosinophils Percent Auto 5.2 % (2-4); Hematocrit 37.4 % (36-46); Hemoglobin 12.4 g/dL (12.0-16.0); Lymphocytes Absolute Auto 3800 /uL (1100-4500); Lymphocytes Percent Auto 33.5 % (25-40); Mean Corpuscular HGB Conc 33.1 % (30-36); Mean Corpuscular Volume 90.6 fL (80-100); Monocytes Absolute Auto 800 /uL (0-900); Monocytes Percent Auto 7.2 % (3-14); Neutrophils Absolute Auto 5800 /uL (1500-7000); Neutrophils Percent Auto 51.2 % (50-75); Red Blood Cell Count 4.13 X10^6/uL (4.0-5.2); Red Cell Distribution Width 15.2 % (11.6-14.8); White Blood Cell Count 11.4 X10^3/uL (4.5-11.0)
[2019-11-25 08:24] LABS: Alanine Aminotransferase 20 IU/L (<35); Albumin 4.3 g/dL (3.5-5.0); Albumin Globulin Ratio 1.4 (1.0-2.8); Alkaline Phosphatase 59 U/L (38-126); Aspartate Aminotransferase 27 IU/L (14-36); Bilirubin Total 0.6 mg/dL (0.2-1.3); Bilirubin Unconjugated 0.5 mg/dL (0.0-1.1); Globulin 3.1 g/dL (1.7-4.1); HEMOLYSIS < 15 (0-50); Total Protein 7.4 g/dL (6.3-8.2)
[2019-11-25 09:38] LABS: Platelet Count 18 X10^3/uL (150-400)
== END ==
PROVIDERS: PCP Physician Assistant; Referring Provider Internal Medicine Hematology; Visit Provider Internal Medicine Hematology
DX: D69.3 Immune thrombocytopenic purpura (principal)
CPT/HCPCS: 36415; 80076; 85025

== ENCOUNTER → 2019-12-02 06:42 | Outpatient (CLI) | payer MEDICARE, OTHER, SELFPAY ==
[2019-12-02 09:33] LABS: HEMOLYSIS < 15 (0-50); Iron 104 ug/dL (37-170)
[2019-12-02 09:45] LABS: Percent Iron Saturation 31 % (15-50); Total Iron Binding Capacity 338 ug/dL (265-497); Transferrin 251 mg/dL (206-381)
[2019-12-02 10:01] LABS: Ferritin 14 ng/mL (11-264)
[2019-12-02 12:14] LABS: Add Manual Diff / Slide Review NO; Basophils Absolute Auto 200 /uL (0-100); Basophils Percent Auto 1.5 % (0-2); Eosinophils Absolute Auto 600 /uL (0-450); Hematocrit 37.8 % (36-46); Hemoglobin 12.5 g/dL (12.0-16.0); Lymphocytes Absolute Auto 4800 /uL (1100-4500); Lymphocytes Percent Auto 32.9 % (25-40); Mean Corpuscular Hemoglobin 30.1 PG (26-34); Mean Corpuscular Volume 91.2 fL (80-100); Monocytes Absolute Auto 1200 /uL (0-900); Neutrophils Absolute Auto 7900 /uL (1500-7000); Neutrophils Percent Auto 53.6 % (50-75); Platelet Count 184 X10^3/uL (150-400); Red Blood Cell Count 4.15 X10^6/uL (4.0-5.2); Red Cell Distribution Width 15.5 % (11.6-14.8); White Blood Cell Count 14.7 X10^3/uL (4.5-11.0)
[2019-12-02 13:09] LABS: Alanine Aminotransferase 19 IU/L (<35); Albumin 4.6 g/dL (3.5-5.0); Albumin Globulin Ratio 1.7 (1.0-2.8); Alkaline Phosphatase 57 U/L (38-126); Aspartate Aminotransferase 25 IU/L (14-36); Bilirubin Total 0.7 mg/dL (0.2-1.3); Bilirubin Unconjugated 0.6 mg/dL (0.0-1.1); Globulin 2.7 g/dL (1.7-4.1); HEMOLYSIS < 15 (0-50); Total Protein 7.3 g/dL (6.3-8.2)
== END ==
PROVIDERS: PCP Physician Assistant; Referring Provider Internal Medicine Hematology; Visit Provider Internal Medicine Hematology
DX: D69.3 Immune thrombocytopenic purpura (principal)
CPT/HCPCS: 36415; 80076; 82728; 83540; 83550; 85025

== ENCOUNTER → 2019-12-09 06:44 | Outpatient (CLI) | payer MEDICARE, OTHER, SELFPAY ==
[2019-12-09 08:38] LABS: Add Manual Diff / Slide Review NO; Basophils Absolute Auto 200 /uL (0-100); Eosinophils Absolute Auto 400 /uL (0-450); Hematocrit 38.4 % (36-46); Hemoglobin 12.6 g/dL (12.0-16.0); Lymphocytes Absolute Auto 3400 /uL (1100-4500); Mean Corpuscular HGB Conc 32.8 % (30-36); Mean Corpuscular Hemoglobin 29.7 PG (26-34); Mean Corpuscular Volume 90.6 fL (80-100); Monocytes Absolute Auto 1000 /uL (0-900); Monocytes Percent Auto 8.2 % (3-14); Neutrophils Absolute Auto 7500 /uL (1500-7000); Neutrophils Percent Auto 59.8 % (50-75); Platelet Count 307 X10^3/uL (150-400); Red Blood Cell Count 4.24 X10^6/uL (4.0-5.2); Red Cell Distribution Width 14.8 % (11.6-14.8); White Blood Cell Count 12.6 X10^3/uL (4.5-11.0)
[2019-12-09 09:14] LABS: Alanine Aminotransferase 21 IU/L (<35); Albumin 4.6 g/dL (3.5-5.0); Albumin Globulin Ratio 1.5 (1.0-2.8); Alkaline Phosphatase 62 U/L (38-126); Aspartate Aminotransferase 26 IU/L (14-36); Bilirubin Total 0.9 mg/dL (0.2-1.3); Bilirubin Unconjugated 0.8 mg/dL (0.0-1.1); Globulin 3.1 g/dL (1.7-4.1); HEMOLYSIS < 15 (0-50); Total Protein 7.7 g/dL (6.3-8.2)
== END ==
PROVIDERS: PCP Physician Assistant; Referring Provider Internal Medicine Hematology; Visit Provider Internal Medicine Hematology
DX: D69.3 Immune thrombocytopenic purpura (principal)
CPT/HCPCS: 36415; 80076; 85025

== ENCOUNTER → 2019-12-16 06:43 | Outpatient (CLI) | payer MEDICARE, OTHER, SELFPAY ==
[2019-12-16 08:47] LABS: Add Manual Diff / Slide Review NO; Basophils Absolute Auto 300 /uL (0-100); Basophils Percent Auto 2.1 % (0-2); Eosinophils Absolute Auto 500 /uL (0-450); Hemoglobin 12.8 g/dL (12.0-16.0); Lymphocytes Absolute Auto 3900 /uL (1100-4500); Lymphocytes Percent Auto 32.4 % (25-40); Mean Corpuscular HGB Conc 33.5 % (30-36); Mean Corpuscular Hemoglobin 30.1 PG (26-34); Mean Corpuscular Volume 89.7 fL (80-100); Monocytes Absolute Auto 1000 /uL (0-900); Neutrophils Absolute Auto 6400 /uL (1500-7000); Neutrophils Percent Auto 53.5 % (50-75); Red Blood Cell Count 4.24 X10^6/uL (4.0-5.2); Red Cell Distribution Width 15.3 % (11.6-14.8); White Blood Cell Count 11.9 X10^3/uL (4.5-11.0)
[2019-12-16 09:21] LABS: Platelet Count 11 X10^3/uL (150-400)
[2019-12-16 09:25] LABS: Acanthocytes 1+; Anisocytosis 1+; Burr Cells 1+; Howell Jolly Bodies 1+; Platelet Estimate Decreased on smear; Schistocytes 1+
== END ==
PROVIDERS: PCP Physician Assistant; Referring Provider Internal Medicine Hematology; Visit Provider Internal Medicine Hematology
DX: D69.3 Immune thrombocytopenic purpura (principal)
CPT/HCPCS: 36415; 85025

== ENCOUNTER → 2019-12-20 11:03 | Outpatient (CLI) | payer MEDICARE, OTHER, SELFPAY ==
[2019-12-20 13:13] LABS: Add Manual Diff / Slide Review NO; Basophils Absolute Auto 100 /uL (0-100); Basophils Percent Auto 1.1 % (0-2); Eosinophils Absolute Auto 100 /uL (0-450); Hematocrit 39.1 % (36-46); Hemoglobin 13.1 g/dL (12.0-16.0); Lymphocytes Absolute Auto 2000 /uL (1100-4500); Lymphocytes Percent Auto 16.7 % (25-40); Mean Corpuscular HGB Conc 33.5 % (30-36); Mean Corpuscular Hemoglobin 30.3 PG (26-34); Mean Corpuscular Volume 90.4 fL (80-100); Monocytes Absolute Auto 600 /uL (0-900); Monocytes Percent Auto 5.3 % (3-14); Neutrophils Absolute Auto 9100 /uL (1500-7000); Neutrophils Percent Auto 75.9 % (50-75); Red Blood Cell Count 4.33 X10^6/uL (4.0-5.2); Red Cell Distribution Width 15.2 % (11.6-14.8); White Blood Cell Count 11.9 X10^3/uL (4.5-11.0)
[2019-12-20 13:34] LABS: Anisocytosis 1+; Poikilocytosis 2+
[2019-12-20 13:36] LABS: Acanthocytes 1+
[2019-12-20 13:37] LABS: Burr Cells 2+; Smudge Cells 1+
[2019-12-20 13:38] LABS: Platelet Count 4 X10^3/uL (150-400)
== END ==
PROVIDERS: PCP Physician Assistant; Referring Provider Internal Medicine Hematology; Visit Provider Internal Medicine Hematology
DX: D69.3 Immune thrombocytopenic purpura (principal)
CPT/HCPCS: 36415; 85025

== ENCOUNTER 2019-12-20 14:42 | Observation (INO) | payer MEDICARE, OTHER, SELFPAY ==
[2019-12-20 14:56] VITALS: BP 174/99; PULSE 99; RESP 15; O2SAT 96
--- NOTE | 2019-12-20 14:59 | PC.NURSE ---
Jacky pt's mercerizer Dr gracia at [phone]
--- NOTE | 2019-12-20 15:08 | ED.RECABL ---
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 Is followed by [facility]. States that she is here in the emergency department today for an infusion of IgG. She was told to come to the emergency department by her coloring machine operator after having blood drawn this morning showing that she has got a platelet count of 4. She states that last evening she did have a slight nosebleed. She also states she bit her tongue and it bled but that seems to have resolved. She did take a dose of TXA last evening. She has had TXA in the past but after the dose last evening she thought that she was having some problems swallowing and felt like her tongue was swelling. Those symptoms have resolved. She denies any headaches or vision changes. Denies any blood in her urine. No change in bowel habits. Related Data Home Medications Medication Instructions Recorded Confirmed metoprolol succinate [Toprol XL] 12.5 mg PO QDAY #0 10/12/11 polyethylene glycol 3350 [Miralax] 17 gm PO #0 05/26/17 Allergies Allergy/AdvReac Type Severity Reaction Status Date / Time latex Allergy Mild LOCAL RASH Verified 12/20/19 14:56 Penicillins Allergy Mild CHILDHOOD Verified 12/20/19 14:56 Sulfa (Sulfonamide Allergy Mild SOMETHING Verified 12/20/19 14:56 Antibiotics) TO DO WITH BLADDER OR KIDNEY'S?? iodine AdvReac Intermediate RAPID Verified 12/20/19 14:56 HEART RATE (IV CONTRAST) Review of Systems Constitutional Constitutional: Denies fatigue, Denies fever(s) and Denies headache(s) Eyes Eyes: Denies change in vision ENT Ears, Nose, Mouth, and Throat: Denies headache(s), Denies epistaxis, Denies sore throat, Denies throat swelling and Denies tongue swelling Cardiovascular Cardiovascular: Denies chest pain and Denies dyspnea Respiratory Respiratory: Denies cough and Denies dyspnea Gastrointestinal Gastrointestinal: Denies abdominal pain, Denies nausea and Denies vomiting Genitourinary Genitourinary: Denies hematuria Genitourinary: Denies hematuria Musculoskeletal Musculoskeletal: Denies arthralgias and Denies myalgias Integumentary/Breasts Comments: Bruising Neurologic Neurologic: Denies behavioral changes and Denies headache(s) Psychiatric Psychiatric: Denies anxiety and Denies behavioral changes Endocrine Endocrine: Denies fatigue Hematologic/Lymphatic Hematologic/Lymphatic: Reports easy bleeding and Reports easy bruising Allergic/Immunologic Allergic/Immunologic: Denies throat swelling and Denies tongue swelling Patient History Medical History Dehydration (Inactive) History of ITP (Acute) Surgical History (Updated 06/10/17 @ 06:30 by Conversion Provider) History of splenectomy History of tonsillectomy Status post hysterectomy Social History marital status: lives independently: Yes Exam Initial Vital Signs Initial Vital Signs: Vital Signs Pulse Rate 99 H 12/20/19 14:56 Respiratory Rate 15 12/20/19 14:56 Blood Pressure 174/99 H 12/20/19 14:56 Pulse Oximetry 96 12/20/19 14:56 Const General: cooperative, healthy appearing and comfortable Limitations: mental status not altered HENMT Head: normal to inspection and normocephalic Mouth: other (Oropharyngeal petechiae) Resp Effort & Inspection: normal respiratory effort Auscultation: clear to auscultation bilaterally Cardio Rate: regular rate Rhythm: regular rhythm GI Inspection: non-distended Palpation: soft Neuro General: patient alert, patient awake and patient oriented x3 Cognition: normal cognition Speech: speech normal Extrem General: capillary refill normal Psych Appearance: grossly normal and well kempt Affect: anxious affect Course Orders Ordered: ED Orders 12/20/19 16:41 Basic Metabolic Panel Stat Complete Blood Count AUTO DIFF Stat Partial Thromboplastin Time Stat Prothrombin Time INR Stat Type and Screen Stat 12/20/19 16:58 COVID19 Stat Sodium Chloride (Normal Saline 0.9%) 1,000 mls @ 150 mls/hr IV CONT MADALYN Discontinued Medications Acetaminophen (Tylenol) 650 mg PO NOW ONE Stop: 12/20/19 16:53 Last Admin: 12/20/19 17:07 Dose: 650 mg Documented by: JYOTI Diphenhydramine HCl (Benadryl) 25 mg IV NOW ONE Stop: 12/20/19 17:03 Last Admin: 12/20/19 17:09 Dose: 25 mg Documented by: JYOTI Immune Globulin 50 gm/ (Miscellaneous) 500 mls @ 0 mls/hr IV NOW ONE Stop: 12/20/19 16:16 Last Infusion: 12/20/19 17:32 Dose: 0 mls/hr Documented by: Admin: 12/20/19 17:23 Dose: 32.7 mls/hr Documented by: JYOTI Vital Signs Vital signs: Vital Signs - 8 hr 12/20/19 14:56 Pulse Rate 99 H Respiratory Rate 15 Blood Pressure 174/99 H Pulse Oximetry 96 MDM - Recheck/Abnormal Lab/Rx Lab Data Attestation: I reviewed the patient's lab results. Result diagrams: 12/20/19 16:41 12/20/19 16:41 Labs: Lab Results 12/20/19 12/20/19 12/20/19 Range/Units 16:41 16:41 16:41 WBC 12.2 H (4.5-11.0) X10^3/uL RBC 4.28 (4.0-5.2) X10^6/uL Hgb 12.7 (12.0-16.0) g/dL Hct 38.7 (36-46) % MCV 90.3 (80-100) fL MCH 29.7 (26-34) PG MCHC 32.9 (30-36) % RDW 15.1 H (11.6-14.8) % Plt Count 4 L* (150-400) X10^3/uL Neut % (Auto) 80.8 H (50-75) % Lymph % (Auto) 13.6 L (25-40) % [place] % (Auto) 4.7 (3-14) % Eos % (Auto) 0.2 L (2-4) % Baso % (Auto) 0.7 (0-2) % Neut # (Auto) 9900 H (0965-5354) /uL Lymph # (Auto) 1700 (9255-6771) /uL [place] # (Auto) 600 (0-900) /uL Eos # (Auto) 0 (0-450) /uL Baso # (Auto) 100 (0-100) /uL RBC Morphology See below Poikilocytosis 1+ H Anisocytosis 1+ H [place] Cells 1+ H PT 10.2 (10.1-12.7) SECONDS INR 0.9 (0.9-1.3) APTT 29 D (26.4-36.2) SECONDS Sodium 135 L (137-145) mmol/L Potassium 4.6 (3.4-5.1) mmol/L Chloride 104 (98-107) mmol/L Carbon Dioxide 23 (22-32) mmol/L BUN 15 (7-17) mg/dL Creatinine 0.73 (0.52-1.04) mg/dL Estimated GFR > 60.0 (>60) mL/min BUN/Creatinine Ratio 20.5 (6-22) Glucose 125 H (80-110) mg/dL Calcium 9.6 (8.4-10.2) mg/dL COVID-19 PCR (Negative) 12/20/19 Range/Units 16:58 WBC (4.5-11.0) X10^3/uL RBC (4.0-5.2) X10^6/uL Hgb (12.0-16.0) g/dL Hct (36-46) % MCV (80-100) fL MCH (26-34) PG MCHC (30-36) % RDW (11.6-14.8) % Plt Count (150-400) X10^3/uL Neut % (Auto) (50-75) % Lymph % (Auto) (25-40) % [place] % (Auto) (3-14) % Eos % (Auto) (2-4) % Baso % (Auto) (0-2) % Neut # (Auto) (1951-3974) /uL Lymph # (Auto) (6700-2045) /uL [place] # (Auto) (0-900) /uL Eos # (Auto) (0-450) /uL Baso # (Auto) (0-100) /uL RBC Morphology Poikilocytosis Anisocytosis [place] Cells PT (10.1-12.7) SECONDS INR (0.9-1.3) APTT (26.4-36.2) SECONDS Sodium (137-145) mmol/L Potassium (3.4-5.1) mmol/L Chloride (98-107) mmol/L Carbon Dioxide (22-32) mmol/L BUN (7-17) mg/dL Creatinine (0.52-1.04) mg/dL Estimated GFR (>60) mL/min BUN/Creatinine Ratio (6-22) Glucose (80-110) mg/dL Calcium (8.4-10.2) mg/dL COVID-19 PCR Negative (Negative) MDM Narrative Medical decision making narrative: Had multiple discussions with her oncologist regarding the patient's thrombocytopenia and her IgG infusions in the past. Her oncologist stated that the patient does not need a low IgA version of the IgG. I did discuss the case with the pharmacist at [facility] who did give us the type of IgG in the dose that the patient has received in the past. Pharmacy here at this hospital was also consulted. Pharmacy here also talked with pharmacist at [facility]. It turns out that our facility does have the same IgG that the patient has received in the past. Patient states that she normally receives Benadryl and Tylenol prior to receiving the infusion. She was given that here in the ER. This effusion needs to be infused over 8 hours then her platelets repeated and then consultation with her oncologist/coloring machine operator once again. She could potentially need a 2nd dose of this IgG. She does not appear to have any active bleeding currently. Her coloring machine operator states that she recommends the IgG and not a platelet transfusion currently. I did discuss all this with the patient. She is extremely anxious about receiving these transfusions however she agrees to be admitted to the hospital did discuss the case with Dr. Lyons who admit for further evaluation and treatment. Discharge Plan Departure Patient Disposition: Admitted as Observation Clinical Impression: Thrombocytopenia Admit Date/Time: 12/20/19 17:08 Admit Provider: Thomas Lyons
[2019-12-20] MEDS: ACETAMINOPHEN 325 MG TABLET 650 MG PO (17:07)
[2019-12-20] MEDS: diphenhydrAMINE 50 MG/ML VIAL 25 MG IV (17:09)
[2019-12-20 17:11] LABS: Add Manual Diff / Slide Review NO; Basophils Absolute Auto 100 /uL (0-100); Basophils Percent Auto 0.7 % (0-2); Eosinophils Absolute Auto 0 /uL (0-450); Eosinophils Percent Auto 0.2 % (2-4); Hematocrit 38.7 % (36-46); Hemoglobin 12.7 g/dL (12.0-16.0); Lymphocytes Absolute Auto 1700 /uL (1100-4500); Lymphocytes Percent Auto 13.6 % (25-40); Mean Corpuscular HGB Conc 32.9 % (30-36); Mean Corpuscular Hemoglobin 29.7 PG (26-34); Mean Corpuscular Volume 90.3 fL (80-100); Monocytes Absolute Auto 600 /uL (0-900); Monocytes Percent Auto 4.7 % (3-14); Neutrophils Absolute Auto 9900 /uL (1500-7000); Neutrophils Percent Auto 80.8 % (50-75); Red Blood Cell Count 4.28 X10^6/uL (4.0-5.2); Red Cell Distribution Width 15.1 % (11.6-14.8); White Blood Cell Count 12.2 X10^3/uL (4.5-11.0)
[2019-12-20 17:20] LABS: INR 0.9 (0.9-1.3); Prothrombin Time 10.2 SECONDS (10.1-12.7)
[2019-12-20 17:23] LABS: PTT Partial Thromboplastin Tim 29 SECONDS (26.4-36.2)
[2019-12-20] MEDS: ISOOSMOTIC VEHICLE IV (17:23)
[2019-12-20] MEDS: IMMUNE GLOBULIN IV (17:23)
[2019-12-20 17:29] LABS: BUN Creatinine Ratio 20.5 (6-22); Blood Urea Nitrogen 15 mg/dL (7-17); Calcium 9.6 mg/dL (8.4-10.2); Carbon Dioxide 23 mmol/L (22-32); Chloride 104 mmol/L (98-107); Estimated Glomerular Filt Rate > 60.0 mL/min (>60); Glucose 125 mg/dL (80-110); Sodium 135 mmol/L (137-145)
[2019-12-20 17:31] LABS: COVID19 -Nasal RAPID Negative (Negative)
[2019-12-20 17:32] LABS: HEMOLYSIS 91 (0-50); Potassium 4.6 mmol/L (3.4-5.1)
[2019-12-20 17:37] LABS: Anisocytosis 1+; Poikilocytosis 1+
[2019-12-20 17:38] LABS: Burr Cells 1+
[2019-12-20 17:39] LABS: Platelet Count 4 X10^3/uL (150-400)
[2019-12-20] MEDS: SODIUM CHLORIDE 0.9% 1,000 ML 150 ML IV (17:46)
[2019-12-20 17:49] VITALS: BP 154/76; PULSE 89; RESP 13; TEMP 36.9; O2SAT 95
[2019-12-20 19:00] VITALS: BP 141/92; PULSE 70; RESP 16; TEMP 36.7; O2SAT 99
[2019-12-20 20:50] VITALS: O2SAT 98
[2019-12-20] MEDS: MELATONIN 3 MG TABLET 6 MG PO (22:48)
[2019-12-20] MEDS: SODIUM CHLORIDE 0.9% 1,000 ML 50 ML IV (23:02)
[2019-12-20 23:45] VITALS: O2SAT 96
[2019-12-21 00:11] VITALS: BP 125/69; PULSE 60; RESP 16; TEMP 36.3; O2SAT 96
--- NOTE | 2019-12-21 00:30 | PC.NURSE ---
ADMISSION Report received from ED, care assumed 185. First of three bottles IVIG infusing at time of admission. A&Ox3. Hypertensive, with diastolic in 90's; self-resolved. Otherwise VSS. Denies pain, complains only of fatigue. Pt. verbalizes understanding as to diagnosis and treatment, as she has been experiencing both for 13 years. IVIG infusing at rate of 43 ml/hr at time of admisison. Increased to 64ml/hr. IVIG rate increased every 30 minutes per protocol, up to 200ml/hr. Tolerated well by patient. VSS throughout.
--- NOTE | 2019-12-21 03:59 | PM.HP.1 ---
History of Present Illness History of Present Illness Date Patient Seen: 12/20/19 Time Patient Seen: 21:00 Chief complaint: IVIG Narrative: Ms. Priscilla Mahan is a 79-year-old female with a past medical history significant for ITP (2006) on chronic steroid therapy, hypertension, atrial flutter, osteoporosis, anxiety, scoliosis and microscopic hematuria who presents to the ER at the direction of her well logging captain mud analysis at [facility] for IVIG infusion. The patient states that she had labs drawn 4 days ago which showed a platelet count of 11 and on laboratory testing today is down to 4 prompting request for a IVIG infusion. The patient was 1st diagnosed in 2006 with ITP and has been on chronic steroid therapy with prednisone 10 mg daily. She states her lowest platelet count was 3. She reports that last night she had a slight right epistaxis and reports taking a dose of TXA after which she describes having feeling of tongue swelling and difficulty swallowing. The patient states for the that she had bleeding from a blister on her tongue that continued and she took another dose with worsening symptoms. Patient states he had used a pack on her tone but believes that she had blood in the back with throat and became nauseous from the blood she swallowed. The patient has had no series bleeding events and denies hematemesis, hematochezia or melena. She has had no traumatic wounds contusions or hematomas. She has had complications related to the chronic steroid therapy including frail skin and has had multiple leg wounds with delayed healing for which she has been followed by Dr. Tadeo. Patient otherwise denies any other complaints of stay cold or flu symptoms has had no fevers or chills. She denies: Recent COVID-19 exposures. She reports no complaints of chest pain, shortness of breath, cough or wheezing. She has had no abdominal pain his head transient nausea bleed related to swallowing blood. She denies urinary complaints or changes in bowel habits. Upon arrival to the ER the patient is afebrile with a temperature 98.5?, heart rate 99, hypertensive 50401, respirations 16 saturating 96% on room air. No imaging was performed and baseline labs were obtained finding a white count of 12.2, hemoglobin of 12.7 and hematocrit of 38.7 and platelets of 4. She has a PT of 10.2 with an INR 0.9 and a PTT of 29. Electrolytes within normal range and she has a BUN of 15 and creatinine 0.73 and a nonfasting glucose 125. like her ER provider spoke the patient's well logging captain mud analysis, as [facility] pharmacy and conferred with [facility] pharmacy. The patient is premedicated with Benadryl and Tylenol prior to receiving the infusion. The IVIG infusion needs to be administered over 8 hours then her platelet count repeated and then consultation with her oncologist/well logging captain mud analysis once again. She could potentially need a 2nd dose of this IgG. The infusion was started in the emergency department, the patient is admitted to the medicine service for continuation of infusion and monitoring of follow-up labs. Patient History Medical History Anxiety (Acute) Atrial flutter (Acute) Chronic steroid use (Acute) History of ITP (Acute) Hypertension (Acute) Microscopic hematuria (Acute) Osteoporosis (Acute) Scoliosis (Acute) Surgical History History of splenectomy History of tonsillectomy Status post hysterectomy Family & Social History Family History (Updated 12/21/19 @ 04:06 by DOMENIC Olsen) Father Cancer Mother Bleeding disorder Social History: household members spouse Prior Living Arrangements House lives independently Yes Safety & Behavioral: Feels Safe in Current Yes Environment Been Physically Hurt or No Threatened By a Person Suicidal Ideation Description None Tobacco & Substance use: Smoking Status Never smoker alcohol intake current alcohol intake frequency 0-2 drinks per day Substance Use Type does not use Meds Home Medications and Allergies Home Medications Medication Instructions Recorded Confirmed Type metoprolol succinate [Toprol XL] 12.5 mg PO QDAY #0 10/12/11 12/20/19 History polyethylene glycol 3350 [Miralax] 17 gm PO BEDTIME #0 05/26/17 12/20/19 History eltrombopag [Promacta] 12.5 mg PO QAM 12/20/19 12/20/19 History lisinopril 10 mg PO QAM 12/20/19 12/20/19 History lorazepam 0.5 mg PO BEDTIME 12/20/19 12/20/19 History melatonin 6 mg PO BEDTIME 12/20/19 12/20/19 History prednisone 20 mg PO QAM 12/20/19 12/20/19 History Allergies Allergy/AdvReac Type Severity Reaction Status Date / Time latex Allergy Mild LOCAL RASH Verified 12/20/19 14:56 Penicillins Allergy Mild CHILDHOOD Verified 12/20/19 14:56 Sulfa (Sulfonamide Allergy Mild SOMETHING Verified 12/20/19 14:56 Antibiotics) TO DO WITH BLADDER OR KIDNEY'S?? iodine AdvReac Intermediate RAPID Verified 12/20/19 14:56 HEART RATE (IV CONTRAST) Review of Systems Review of Systems ROS: Yes All systems reviewed with the patient and are negative except as otherwise documented Exam Vital Signs (past 8 hours): - 12/20/19 20:50 12/21/19 00:11 Temperature 97.3 F L Pulse Rate 60 Respiratory Rate 16 Blood Pressure 125/69 Pulse Oximetry 98 96 Oxygen Delivery Method Room Air Narrative Exam Narrative: GENERAL APPEARANCE: well developed, frail appearing elderly woman in no acute distress. HEENT: Normocephalic, PERRLA, conjunctiva clear, EOMs intact without nystagmus, no rhinorrhea or epistaxis, mucous membranes are moist and pink, oral petechiae, multiple small lingual blood blisters. NECK/THYROID: neck supple, no JVD, no carotid bruit, no thyromegaly, trachea midline. LYMPH NODES: no cervical or supraclavicular lymphadenopathy. SKIN: [place], warm and dry, no visible lesions, rashes, scattered petechiae, bilateral lower extremity foam guards in place HEART: regular rate and rhythm, S1-S2, no murmur, no rubs or gallops, brisk capillary refill, no edema LUNGS: clear to auscultation bilaterally, no coarseness crackles or wheezing, no cough present CHEST: Symmetrical movement, no accessory muscle use, good tidal volume. ABDOMEN: Soft, no distention, no abdominal tenderness, no guarding or peritoneal signs, no organomegaly, no flank or suprapubic tenderness, active bowel tones. EXTREMITIES: moves all extremities, strength is 5/5 and symmetrical, no deformities or joint effusions. NEUROLOGIC: AAO x4, no focal neurologic deficits, cranial nerves II-XII grossly intact, sensation intact to light touch, hearing grossly normal to speech. PSYCH: Quiet, anxious, cooperative and very particular and regimented Objective Labs Result Diagrams: 12/20/19 16:41 12/20/19 16:41 Labs: Laboratory Results - last 24 hr 12/20/19 12/20/19 12/20/19 16:41 16:41 16:41 WBC 12.2 H RBC 4.28 Hgb 12.7 Hct 38.7 MCV 90.3 MCH 29.7 MCHC 32.9 RDW 15.1 H Plt Count 4 L* Neut % (Auto) 80.8 H Lymph % (Auto) 13.[address] [place] % (Auto) 4.7 Eos % (Auto) 0.2 L Baso % (Auto) 0.7 Neut # (Auto) 9900 H Lymph # (Auto) 1700 [place] # (Auto) 600 Eos # (Auto) 0 Baso # (Auto) 100 RBC Morphology See below Poikilocytosis 1+ H Anisocytosis 1+ H [place] Cells 1+ H PT 10.2 INR 0.9 APTT 29 D Sodium 135 L Potassium 4.6 Chloride 104 Carbon Dioxide 23 BUN 15 Creatinine 0.73 Estimated GFR > 60.0 BUN/Creatinine Ratio 20.5 Glucose 125 H Calcium 9.6 COVID-19 PCR Blood Type Antibody Screen 12/20/19 12/20/19 16:41 16:58 WBC RBC Hgb Hct MCV MCH MCHC RDW Plt Count Neut % (Auto) Lymph % (Auto) [place] % (Auto) Eos % (Auto) Baso % (Auto) Neut # (Auto) Lymph # (Auto) [place] # (Auto) Eos # (Auto) Baso # (Auto) RBC Morphology Poikilocytosis Anisocytosis [place] Cells PT INR APTT Sodium Potassium Chloride Carbon Dioxide BUN Creatinine Estimated GFR BUN/Creatinine Ratio Glucose Calcium COVID-19 PCR Negative Blood Type O Negative Antibody Screen Negative Assessment & Plan Assessment & Plan narrative: This is a 79-year-old female patient who presents to the ER for infusion of IVIG to treat acute thrombocytopenia at the request of her well logging captain mud analysis in [place]. 1. Idiopathic thrombocytopenic purpura, acute on chronic, present on admission, active -patient has a platelet count of 4 down from 11 four days ago. -treatment plan for IVIG made in concert with [facility]. Ordered IVIG infusion per protocol. -the patient has been premedicated with Benadryl and Tylenol. -ordered Benadryl 25 mg IV every 6 hours as needed. -ordered Tylenol 650 mg every 4 hours as needed -will continue prednisone 20 mg daily. 2. Hypertension, chronic, stable -continue home regimen of lisinopril 10 mg daily. 3. History of atrial flutter, chronic, stable -continue home regimen of metoprolol succinate 12.5 mg daily 4. Anxiety, chronic, stable -ordered lorazepam 0.5 mg every 6 hours as needed for anxiety. VTE prophylaxis: Contraindicated IV fluid: Normal saline 50 cc/hour. Diet: Heart healthy Code status: Full code, patient designates her be surrogate decision maker. The patient is admitted to the hospital for immunoglobin infusion needed to stabilize the patient's critically low platelet count. The infusion takes 8 hours and will need follow-up labs to monitor progress and may need additional treatment. The patient is admitted as observation with expected length of stay to be less than 2 midnights. COVID-19 COVID-19 status: Negative Result date/Date tested (Pos, Neg/Pending): 12/20/19 Scores GCS Mel[place] coma scale eye opening: Spontaneous [place] coma scale verbal response: Orientated [place] coma scale motor response: Obey commands [place] coma scale total score: 15
[2019-12-21] MEDS: ACETAMINOPHEN 325 MG TABLET 650 MG PO (04:01)
[2019-12-21 04:37] VITALS: BP 162/92; PULSE 73; RESP 18; TEMP 37.1; O2SAT 99
[2019-12-21 05:30] LABS: Add Manual Diff / Slide Review NO; Basophils Absolute Auto 100 /uL (0-100); Basophils Percent Auto 0.5 % (0-2); Eosinophils Absolute Auto 200 /uL (0-450); Eosinophils Percent Auto 1.6 % (2-4); Hematocrit 32.9 % (36-46); Hemoglobin 10.8 g/dL (12.0-16.0); Lymphocytes Absolute Auto 2800 /uL (1100-4500); Lymphocytes Percent Auto 20.3 % (25-40); Mean Corpuscular Hemoglobin 29.7 PG (26-34); Monocytes Absolute Auto 600 /uL (0-900); Monocytes Percent Auto 4.3 % (3-14); Neutrophils Absolute Auto 10200 /uL (1500-7000); Neutrophils Percent Auto 73.3 % (50-75); Red Blood Cell Count 3.65 X10^6/uL (4.0-5.2); Red Cell Distribution Width 15.1 % (11.6-14.8); White Blood Cell Count 13.9 X10^3/uL (4.5-11.0)
[2019-12-21 05:38] LABS: Platelet Count 10 X10^3/uL (150-400)
[2019-12-21 07:28] LABS: Acanthocytes 2+
[2019-12-21 07:29] LABS: Anisocytosis 1+
[2019-12-21 07:30] LABS: Platelet Estimate Decreased on smear
[2019-12-21 08:00] VITALS: BP 127/74; PULSE 70; RESP 16; TEMP 37; O2SAT 93
[2019-12-21 08:46] VITALS: BP 127/74; PULSE 70
[2019-12-21] MEDS: lisinopriL 10 MG TABLET PO (08:46)
[2019-12-21] MEDS: predniSONE 10 MG TABLET 20 MG PO (08:46)
[2019-12-21 08:47] VITALS: BP 127/74; PULSE 70
[2019-12-21] MEDS: METOPROLOL ER 25 MG TABLET 12.5 MG PO (08:47)
--- NOTE | 2019-12-21 08:53 | P.DS_ITS ---
History of Present Illness History of Present Illness Date Patient Seen: 12/21/19 Time Patient Seen: 08:53 Chief complaint: IVIG Narrative: As per DOMENIC Olsen: . 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 The patient states that she had labs drawn 4 days ago which showed a platelet count of 11 and on laboratory testing today is down to 4 prompting request for a IVIG infusion. The patient was 1st diagnosed in 2006 with ITP and has been on chronic steroid therapy with prednisone 10 mg daily. She states her lowest platelet count was 3. She reports that last night she had a slight right epistaxis and reports taking a dose of TXA after which she describes having feeling of tongue swelling and difficulty swallowing. The patient states for the that she had bleeding from a blister on her tongue that continued and she took another dose with worsening symptoms. Patient states he had used a pack on her tone but believes that she had blood in the back with throat and became nauseous from the blood she swallowed. The patient has had no series bleeding events and denies hematemesis, hematochezia or melena. She has had no traumatic wounds contusions or hematomas. She has had complications related to the chronic steroid therapy including frail skin and has had multiple leg wounds with delayed healing for which she has been followed by Dr. Tadeo. Patient otherwise denies any other complaints of stay cold or flu symptoms has had no fevers or chills. She denies: Recent COVID-19 exposures. She reports no complaints of chest pain, shortness of breath, cough or wheezing. She has had no abdominal pain his head transient nausea bleed related to swallowing blood. She denies urinary complaints or changes in bowel habits. Upon arrival to the ER the patient is afebrile with a temperature 98.5?, heart rate 99, hypertensive 92525, respirations 16 saturating 96% on room air. No imaging was performed and baseline labs were obtained finding a white count of 12.2, hemoglobin of 12.7 and hematocrit of 38.7 and platelets of 4. She has a PT of 10.2 with an INR 0.9 and a PTT of 29. Electrolytes within normal range and she has a BUN of 15 and creatinine 0.73 and a nonfasting glucose 125. like her ER provider spoke the patient's digital technician, as [facility] pharmacy and conferred with [facility] pharmacy. The patient is premedicated with Benadryl and Tylenol prior to receiving the infusion. The IVIG infusion needs to be administered over 8 hours then her platelet count repeated and then consultation with her oncologist/digital technician once again. She could potentially need a 2nd dose of this IgG. The infusion was started in the emergency department, the patient is admitted to the medicine service for continuation of infusion and monitoring of follow-up labs. Discharge Providers Provider Date of admission: 12/20/19 17:08 Discharge Date: 12/21/19 Primary care physician: Henny Dinh PA-C Consults: 12/20/19 20:55 Consult to Dietitian, Adult Routine Comment: Reason For Exam: ITP, platelet count 4 Consult to Discharge Planning Routine Comment: Discharge provider: Thomas Lyons DO Summary Hospital Course Discharge Diagnosis: 1. ITP, acute on chronic, present on admission, improved. 2. Hypertension, chronic, stable 3. History of atrial flutter, chronic, stable 4. Anxiety, chronic, stable Hospital Course: This is a 79-year-old female with a past medical history of hypertension and ITP on chronic steroid therapies who presented at the direction of her digital technician at the [facility], Dr. Smith. She received a single dose of IVIG which is infused over the period of 8 hours. Her platelet count improved from [address] Smith the following morning who stated that this was an excellent response and that the patient could be discharged home. She will follow-up with her digital technician as pr eviously scheduled, and she is working on changing possible infusion site to [facility]. Exam Vital Signs (past 8 hours): - 12/21/19 04:37 12/21/19 08:00 12/21/19 08:46 Temperature 98.7 F 98.6 F Pulse Rate 73 70 70 Respiratory Rate 18 16 Blood Pressure 162/92 H 127/74 127/74 Pulse Oximetry 99 93 12/21/19 08:47 Temperature Pulse Rate 70 Respiratory Rate Blood Pressure 127/74 Pulse Oximetry Oxygen Delivery Method Room Air Oxygen Flow Rate 0 Narrative Exam Narrative: GENERAL APPEARANCE: well developed, slightly pale, elderly woman in no acute distress. HEENT: Normocephalic, PERRLA, conjunctiva clear, EOMs intact without nystagmus, no rhinorrhea or epistaxis, mucous membranes are moist and pink, small patch of oral petechiae, no obvious blisters NECK/THYROID: neck supple, no JVD, no carotid bruit, no thyromegaly, trachea midline. LYMPH NODES: no cervical or supraclavicular lymphadenopathy. SKIN: [place], warm and dry, no visible lesions, rashes, scattered petechiae improved HEART: regular rate and rhythm, S1-S2, no murmur, no rubs or gallops, brisk capillary refill, no edema LUNGS: clear to auscultation bilaterally, no coarseness crackles or wheezing, no cough present CHEST: Symmetrical movement, no accessory muscle use, good tidal volume. ABDOMEN: Soft, no distention, no abdominal tenderness, no guarding or peritoneal signs, no organomegaly, no flank or suprapubic tenderness, active bowel tones. EXTREMITIES: moves all extremities, strength is 5/5 and symmetrical, no deformities or joint effusions. NEUROLOGIC: AAO x4, no focal neurologic deficits, cranial nerves II-XII grossly intact, sensation intact to light touch, hearing grossly normal to speech. PSYCH: Quiet, anxious, cooperative and very particular and regimented Objective Labs Result Diagrams: 12/21/19 04:35 12/20/19 16:41 Labs: Laboratory Results - last 24 hr 12/20/19 12/20/19 12/20/19 16:41 16:41 16:41 WBC 12.2 H RBC 4.28 Hgb 12.7 Hct 38.7 MCV 90.3 MCH 29.7 MCHC 32.9 RDW 15.1 H Plt Count 4 L* Neut % (Auto) 80.8 H Lymph % (Auto) 13.6 L Person % (Auto) 4.7 Eos % (Auto) 0.2 L Baso % (Auto) 0.7 Neut # (Auto) 9900 H Lymph # (Auto) 1700 Person # (Auto) 600 Eos # (Auto) 0 Baso # (Auto) 100 Platelet Estimate RBC Morphology See below Poikilocytosis 1+ H Anisocytosis 1+ H Kayden Cells 1+ H Acanthocytes (Spur) PT 10.2 INR 0.9 APTT 29 D Sodium 135 L Potassium 4.6 Chloride 104 Carbon Dioxide 23 BUN 15 Creatinine 0.73 Estimated GFR > 60.0 BUN/Creatinine Ratio 20.5 Glucose 125 H Calcium 9.6 COVID-19 PCR Blood Type Antibody Screen 12/20/19 12/20/19 12/21/19 16:41 16:58 04:35 WBC 13.9 H RBC 3.65 L Hgb 10.8 L Hct 32.9 L MCV 90.0 MCH 29.7 MCHC 33.0 RDW 15.1 H Plt Count 10 L* Neut % (Auto) 73.3 Lymph % (Auto) 20.3 L Person % (Auto) 4.3 Eos % (Auto) 1.6 L Baso % (Auto) 0.5 Neut # (Auto) 77592 H Lymph # (Auto) 2800 Person # (Auto) 600 Eos # (Auto) 200 Baso # (Auto) 100 Platelet Estimate Decreased on smear RBC Morphology See below Poikilocytosis Anisocytosis 1+ H Kayden Cells Acanthocytes (Spur) 2+ H PT INR APTT Sodium Potassium Chloride Carbon Dioxide BUN Creatinine Estimated GFR BUN/Creatinine Ratio Glucose Calcium COVID-19 PCR Negative Blood Type O Negative Antibody Screen Negative Discharge Plan Discharge Plan Patient Disposition: Home Provider Discharge Comment: You were admitted to the hospital with a low platelet count. It improved from 4 to 10 after IVIG. Please follow up with your digital technician as soon as possible (Dr. Smith). Discharge orders & Medications Prescriptions: Continued metoprolol succinate [Toprol XL] 25 MG tablet extended release 24 hr 12.5 mg PO QDAY Qty: 0 RF: 0 polyethylene glycol 3350 [Miralax] 17 GM powder in packet 17 gm PO BEDTIME Qty: 0 RF: 0 melatonin 6 mg 6 mg PO BEDTIME RF: 0 prednisone 10 mg tablet 20 mg PO QAM RF: 0 lorazepam 0.5 mg tablet 0.5 mg PO BEDTIME RF: 0 lisinopril 10 mg tablet 10 mg PO QAM RF: 0 Promacta 12.5 mg tablet 12.5 mg PO QAM RF: 0 Follow up/Referrals: Henny Dinh PA-C [Primary Care Provider] - Diet/Activity/Treatments Diet: Diet as Tolerated Activity: As tolerated Discharge Data Primary Care Provider: Henny Dinh Attending Provider: Thomas Lyons Admit Date/Time: 12/20/19 17:08
--- NOTE | 2019-12-21 10:17 | PC.NURSE ---
Addendum entered by Rose Mary Roberts R.N. 12/21/19 10:19: Meds from pharmacy returned to Pt. Original Note: Pt is getting dressed and has called her spouse to pick her up to take her home. HL's have been removed. Went over d/c instructions with Pt-discussed d/c meds, time of last dose, reviewed stroke education, and follow up. Pt denies further questions and will be taken out via w/c by [facility] to pov with Spouse and all belongings.
== END 2019-12-21 10:56 | disposition home or self-care (01) ==
LOC: ED 16:55 → AC 17:09
PROVIDERS: Nurse Practitioner Adult Health; Admitting Provider Internal Medicine; Emergency Provider Emergency Medicine; PCP Physician Assistant; Referring Provider Emergency Medicine; Visit Provider Internal Medicine
DX: D69.3 Immune thrombocytopenic purpura (principal); I10 Essential (primary) hypertension; I48.92 Unspecified atrial flutter; F41.9 Anxiety disorder, unspecified; Z11.59 Encounter for screening for other viral diseases
CPT/HCPCS: 36415; 80048; 85025; 85610; 85730; 86850; 86900; 86901; 87635; 96361; 96365; 96375; 99284; G0378; J1200; J1561

== ENCOUNTER → 2019-12-27 06:50 | Outpatient (CLI) | payer MEDICARE, OTHER, SELFPAY ==
[2019-12-27 08:52] LABS: Add Manual Diff / Slide Review NO; Basophils Absolute Auto 200 /uL (0-100); Basophils Percent Auto 1.8 % (0-2); Eosinophils Absolute Auto 200 /uL (0-450); Eosinophils Percent Auto 1.7 % (2-4); Hematocrit 37.1 % (36-46); Hemoglobin 12.4 g/dL (12.0-16.0); Lymphocytes Absolute Auto 4500 /uL (1100-4500); Lymphocytes Percent Auto 32.9 % (25-40); Mean Corpuscular HGB Conc 33.3 % (30-36); Mean Corpuscular Volume 89.9 fL (80-100); Monocytes Absolute Auto 1000 /uL (0-900); Monocytes Percent Auto 7.4 % (3-14); Neutrophils Absolute Auto 7600 /uL (1500-7000); Neutrophils Percent Auto 56.2 % (50-75); Platelet Count 343 X10^3/uL (150-400); Red Blood Cell Count 4.13 X10^6/uL (4.0-5.2); Red Cell Distribution Width 15.5 % (11.6-14.8); White Blood Cell Count 13.6 X10^3/uL (4.5-11.0)
[2019-12-27 09:16] LABS: Alanine Aminotransferase 17 IU/L (<35); Albumin 4.6 g/dL (3.5-5.0); Albumin Globulin Ratio 1.2 (1.0-2.8); Alkaline Phosphatase 55 U/L (38-126); Aspartate Aminotransferase 26 IU/L (14-36); Bilirubin Total 0.7 mg/dL (0.2-1.3); Bilirubin Unconjugated 0.7 mg/dL (0.0-1.1); Globulin 3.9 g/dL (1.7-4.1); HEMOLYSIS < 15 (0-50); Total Protein 8.5 g/dL (6.3-8.2)
[2019-12-27 18:16] LABS: Ferritin 16 ng/mL (11-264)
== END ==
PROVIDERS: PCP Physician Assistant; Referring Provider Internal Medicine Hematology; Visit Provider Internal Medicine Hematology
DX: D69.3 Immune thrombocytopenic purpura (principal)
CPT/HCPCS: 36415; 80076; 82728; 85025

== ENCOUNTER → 2019-12-30 06:40 | Outpatient (CLI) | payer MEDICARE, OTHER, SELFPAY ==
[2019-12-30 08:11] LABS: Add Manual Diff / Slide Review NO; Basophils Absolute Auto 100 /uL (0-100); Basophils Percent Auto 0.9 % (0-2); Eosinophils Absolute Auto 100 /uL (0-450); Eosinophils Percent Auto 0.8 % (2-4); Hematocrit 36.6 % (36-46); Hemoglobin 12.2 g/dL (12.0-16.0); Lymphocytes Absolute Auto 2600 /uL (1100-4500); Lymphocytes Percent Auto 17.8 % (25-40); Mean Corpuscular HGB Conc 33.3 % (30-36); Monocytes Absolute Auto 800 /uL (0-900); Monocytes Percent Auto 5.6 % (3-14); Neutrophils Absolute Auto 10800 /uL (1500-7000); Neutrophils Percent Auto 74.9 % (50-75); Platelet Count 560 X10^3/uL (150-400); Red Blood Cell Count 4.06 X10^6/uL (4.0-5.2); Red Cell Distribution Width 15.3 % (11.6-14.8); White Blood Cell Count 14.4 X10^3/uL (4.5-11.0)
== END ==
PROVIDERS: PCP Physician Assistant; Referring Provider Internal Medicine Hematology; Visit Provider Internal Medicine Hematology
DX: D69.3 Immune thrombocytopenic purpura (principal)
CPT/HCPCS: 36415; 85025

== ENCOUNTER → 2020-01-08 07:35 | Outpatient (CLI) | payer MEDICARE, OTHER, SELFPAY ==
[2020-01-08 09:05] LABS: Add Manual Diff / Slide Review NO; Basophils Absolute Auto 200 /uL (0-100); Basophils Percent Auto 1.5 % (0-2); Eosinophils Absolute Auto 200 /uL (0-450); Eosinophils Percent Auto 1.6 % (2-4); Hematocrit 37.5 % (36-46); Hemoglobin 12.4 g/dL (12.0-16.0); Lymphocytes Absolute Auto 4300 /uL (1100-4500); Lymphocytes Percent Auto 29.5 % (25-40); Mean Corpuscular HGB Conc 33.1 % (30-36); Mean Corpuscular Hemoglobin 30.1 PG (26-34); Mean Corpuscular Volume 90.8 fL (80-100); Monocytes Absolute Auto 1100 /uL (0-900); Monocytes Percent Auto 7.2 % (3-14); Neutrophils Absolute Auto 8700 /uL (1500-7000); Neutrophils Percent Auto 60.2 % (50-75); Platelet Count 514 X10^3/uL (150-400); Red Blood Cell Count 4.13 X10^6/uL (4.0-5.2); Red Cell Distribution Width 15.5 % (11.6-14.8); White Blood Cell Count 14.5 X10^3/uL (4.5-11.0)
[2020-01-08 09:19] LABS: Alanine Aminotransferase 16 IU/L (<35); Albumin 4.3 g/dL (3.5-5.0); Albumin Globulin Ratio 1.2 (1.0-2.8); Alkaline Phosphatase 55 U/L (38-126); Aspartate Aminotransferase 25 IU/L (14-36); Bilirubin Total 0.7 mg/dL (0.2-1.3); Bilirubin Unconjugated 0.7 mg/dL (0.0-1.1); Globulin 3.7 g/dL (1.7-4.1); HEMOLYSIS < 15 (0-50)
== END ==
PROVIDERS: PCP Physician Assistant; Referring Provider Internal Medicine Hematology; Visit Provider Internal Medicine Hematology
DX: D69.3 Immune thrombocytopenic purpura (principal)
CPT/HCPCS: 36415; 80076; 85025

== ENCOUNTER → 2020-01-18 07:00 | Outpatient (CLI) | payer MEDICARE, OTHER, SELFPAY ==
[2020-01-18 08:21] LABS: Basophils Absolute Auto 200 /uL (0-100); Basophils Percent Auto 2.1 % (0-2); Eosinophils Absolute Auto 400 /uL (0-450); Eosinophils Percent Auto 3.3 % (2-4); Hematocrit 38.5 % (36-46); Hemoglobin 12.4 g/dL (12.0-16.0); Lymphocytes Absolute Auto 4500 /uL (1100-4500); Lymphocytes Percent Auto 39.7 % (25-40); Mean Corpuscular HGB Conc 32.3 % (30-36); Mean Corpuscular Hemoglobin 29.6 PG (26-34); Mean Corpuscular Volume 91.9 fL (80-100); Monocytes Absolute Auto 800 /uL (0-900); Monocytes Percent Auto 7.5 % (3-14); Neutrophils Absolute Auto 5400 /uL (1500-7000); Neutrophils Percent Auto 47.4 % (50-75); Red Blood Cell Count 4.19 X10^6/uL (4.0-5.2); Red Cell Distribution Width 15.7 % (11.6-14.8); White Blood Cell Count 11.3 X10^3/uL (4.5-11.0)
[2020-01-18 08:25] LABS: Alanine Aminotransferase 18 IU/L (<35); Albumin 4.4 g/dL (3.5-5.0); Albumin Globulin Ratio 1.3 (1.0-2.8); Alkaline Phosphatase 55 U/L (38-126); Aspartate Aminotransferase 25 IU/L (14-36); Bilirubin Total 0.8 mg/dL (0.2-1.3); Bilirubin Unconjugated 0.8 mg/dL (0.0-1.1); Globulin 3.3 g/dL (1.7-4.1); HEMOLYSIS < 15 (0-50); Total Protein 7.7 g/dL (6.3-8.2)
[2020-01-18 09:10] LABS: Add Manual Diff / Slide Review SLIDE REVIEW; Platelet Count 5 X10^3/uL (150-400)
[2020-01-18 09:11] LABS: Platelet Estimate Decreased on smear
[2020-01-18 09:12] LABS: Acanthocytes 1+; Anisocytosis 1+
--- NOTE | 2020-01-18 14:34 | PC.NURSE ---
IVIG orders; This RN spoke with CAROLYNN Dwyer at [facility] requesting clarification on IVIG orders for pt and to please include provider's signature. Requesting recent H&P, prior auth, diagnoses code, and signed orders. Informed Yuliya PRADHAN, that pt would be scheduled for first thing in the morning, Yuliya verbalized understanding.
--- NOTE | 2020-01-18 14:57 | PC.NURSE ---
Received urgent orders from [facility] today, spoke with CAROLYNN Dwyer to clarify orders and prior authorization. Unable to schedule patient today. Spoke to pt, pt reported being symptomatic. This RN instructed the patient to go to the ER if she experienced a change in health status, and if she wanted her infusion today as we were unable to accommodate her today. Pt verbalized understanding. The pt stated she didn't want to be admitted and would prefer to take the 830 appointment on 01/19/20.
== END ==
PROVIDERS: PCP Physician Assistant; Referring Provider Physician Assistant; Visit Provider Internal Medicine Hematology
DX: D69.3 Immune thrombocytopenic purpura (principal)
CPT/HCPCS: 36415; 80076; 85025

== ENCOUNTER → 2020-01-25 06:39 | Outpatient (CLI) | payer MEDICARE, OTHER, SELFPAY ==
[2020-01-25 07:48] LABS: Add Manual Diff / Slide Review NO; Basophils Absolute Auto 100 /uL (0-100); Basophils Percent Auto 1.4 % (0-2); Eosinophils Absolute Auto 200 /uL (0-450); Eosinophils Percent Auto 1.8 % (2-4); Hematocrit 36.5 % (36-46); Hemoglobin 12.1 g/dL (12.0-16.0); Lymphocytes Absolute Auto 3100 /uL (1100-4500); Lymphocytes Percent Auto 31.8 % (25-40); Mean Corpuscular HGB Conc 33.2 % (30-36); Mean Corpuscular Hemoglobin 30.1 PG (26-34); Mean Corpuscular Volume 90.6 fL (80-100); Monocytes Absolute Auto 800 /uL (0-900); Monocytes Percent Auto 8.2 % (3-14); Neutrophils Absolute Auto 5600 /uL (1500-7000); Neutrophils Percent Auto 56.8 % (50-75); Platelet Count 230 X10^3/uL (150-400); Red Blood Cell Count 4.03 X10^6/uL (4.0-5.2); Red Cell Distribution Width 15.2 % (11.6-14.8); White Blood Cell Count 9.9 X10^3/uL (4.5-11.0)
[2020-01-25 08:00] LABS: Alanine Aminotransferase 18 IU/L (<35); Albumin 4.4 g/dL (3.5-5.0); Albumin Globulin Ratio 1.1 (1.0-2.8); Alkaline Phosphatase 53 U/L (38-126); Aspartate Aminotransferase 29 IU/L (14-36); Bilirubin Total 0.7 mg/dL (0.2-1.3); Bilirubin Unconjugated 0.7 mg/dL (0.0-1.1); Globulin 4.1 g/dL (1.7-4.1); HEMOLYSIS < 15 (0-50); Total Protein 8.5 g/dL (6.3-8.2)
== END ==
PROVIDERS: PCP Physician Assistant; Referring Provider Physician Assistant; Visit Provider Internal Medicine Hematology
DX: D69.3 Immune thrombocytopenic purpura (principal)
CPT/HCPCS: 36415; 80076; 85025

== ENCOUNTER → 2020-02-01 06:36 | Outpatient (CLI) | payer MEDICARE, OTHER, SELFPAY ==
[2020-02-01 07:22] LABS: Add Manual Diff / Slide Review NO; Basophils Absolute Auto 200 /uL (0-100); Basophils Percent Auto 1.1 % (0-2); Eosinophils Absolute Auto 200 /uL (0-450); Eosinophils Percent Auto 1.2 % (2-4); Hematocrit 35.1 % (36-46); Hemoglobin 11.7 g/dL (12.0-16.0); Lymphocytes Absolute Auto 2900 /uL (1100-4500); Mean Corpuscular HGB Conc 33.4 % (30-36); Mean Corpuscular Hemoglobin 29.9 PG (26-34); Mean Corpuscular Volume 89.6 fL (80-100); Monocytes Absolute Auto 1100 /uL (0-900); Monocytes Percent Auto 7.6 % (3-14); Neutrophils Absolute Auto 10000 /uL (1500-7000); Neutrophils Percent Auto 70.1 % (50-75); Platelet Count 641 X10^3/uL (150-400); Red Blood Cell Count 3.92 X10^6/uL (4.0-5.2); Red Cell Distribution Width 15.1 % (11.6-14.8); White Blood Cell Count 14.3 X10^3/uL (4.5-11.0)
[2020-02-01 07:49] LABS: Alanine Aminotransferase 19 IU/L (<35); Albumin 4.2 g/dL (3.5-5.0); Albumin Globulin Ratio 1.2 (1.0-2.8); Alkaline Phosphatase 55 U/L (38-126); Aspartate Aminotransferase 27 IU/L (14-36); Bilirubin Total 0.7 mg/dL (0.2-1.3); Bilirubin Unconjugated 0.7 mg/dL (0.0-1.1); Globulin 3.5 g/dL (1.7-4.1); HEMOLYSIS < 15 (0-50); Total Protein 7.7 g/dL (6.3-8.2)
== END ==
PROVIDERS: PCP Physician Assistant; Referring Provider Physician Assistant; Visit Provider Internal Medicine Hematology
DX: D69.3 Immune thrombocytopenic purpura (principal)
CPT/HCPCS: 36415; 80076; 85025

== ENCOUNTER → 2020-02-07 19:06 | Outpatient (ROUT) | payer MEDICARE, OTHER, SELFPAY | PROVIDERS: PCP Physician Assistant; Visit Provider Student in an Organized Health Care Education/Training Program | DX: N39.0 Urinary tract infection, site not specified (principal) | CPT/HCPCS: 87086 ==

== ENCOUNTER → 2020-02-08 06:36 | Outpatient (CLI) | payer MEDICARE, OTHER, SELFPAY ==
[2020-02-08 08:45] LABS: Add Manual Diff / Slide Review NO; Basophils Absolute Auto 100 /uL (0-100); Basophils Percent Auto 0.6 % (0-2); Eosinophils Absolute Auto 200 /uL (0-450); Eosinophils Percent Auto 1.3 % (2-4); Hemoglobin 11.6 g/dL (12.0-16.0); Lymphocytes Absolute Auto 3300 /uL (1100-4500); Lymphocytes Percent Auto 17.8 % (25-40); Mean Corpuscular HGB Conc 32.3 % (30-36); Mean Corpuscular Hemoglobin 29.3 PG (26-34); Mean Corpuscular Volume 90.7 fL (80-100); Monocytes Absolute Auto 1100 /uL (0-900); Monocytes Percent Auto 6.1 % (3-14); Neutrophils Absolute Auto 13700 /uL (1500-7000); Neutrophils Percent Auto 74.2 % (50-75); Platelet Count 823 X10^3/uL (150-400); Red Blood Cell Count 3.97 X10^6/uL (4.0-5.2); Red Cell Distribution Width 15.6 % (11.6-14.8); White Blood Cell Count 18.5 X10^3/uL (4.5-11.0)
[2020-02-08 09:09] LABS: Alanine Aminotransferase 18 IU/L (<35); Albumin 4.1 g/dL (3.5-5.0); Albumin Globulin Ratio 1.1 (1.0-2.8); Alkaline Phosphatase 57 U/L (38-126); Aspartate Aminotransferase 27 IU/L (14-36); Bilirubin Total 0.4 mg/dL (0.2-1.3); Bilirubin Unconjugated 0.4 mg/dL (0.0-1.1); Globulin 3.7 g/dL (1.7-4.1); HEMOLYSIS < 15 (0-50); Total Protein 7.8 g/dL (6.3-8.2)
[2020-02-08 10:01] LABS: Burr Cells 1+; Platelet Estimate Increased on smear
== END ==
PROVIDERS: PCP Physician Assistant; Referring Provider Internal Medicine Hematology; Visit Provider Internal Medicine Hematology
DX: D69.3 Immune thrombocytopenic purpura (principal)
CPT/HCPCS: 36415; 80076; 85025

== ENCOUNTER 2020-02-10 06:56 | Emergency (ER) | payer MEDICARE, OTHER, SELFPAY ==
[2020-02-10] VITALS (10 sets, daily range): BP systolic 114–165; BP diastolic 58–77; PULSE 58–81; RESP 15–16; TEMP 36.8; O2SAT 93–98; BMI 21.1
--- NOTE | 2020-02-10 07:40 | ED.FEMALEGU ---
HPI - Female Genitourinary General Chief complaint: Vaginal Bleeding Stated complaint: bleeding from vaginal area Time Seen by Provider: 02/10/20 07:26 Source: patient Mode of arrival: Ambulatory Limitations: no limitations History of Present Illness HPI Narrative: Patient is a 79-year-old female with history of ITP presenting with vaginal bleeding. She actually establish care with Oncology this week and her platelets were 823,000. This morning she woke up and noticed that she had some vaginal bleeding. She says it kept coming out she needed a washcloth. She could not get it to stop nor could she find out exactly where or why it was coming. She said yesterday she felt a little bloated but no real pain. She denies any dizziness or lightheadedness. MD Complaint: vaginal bleeding Relieving factors: none Exacerbating factors: none Related Data Home Medications Medication Instructions Recorded Confirmed metoprolol succinate [Toprol XL] 12.5 mg PO QDAY #0 10/12/11 12/20/19 polyethylene glycol 3350 [Miralax] 17 gm PO BEDTIME #0 05/26/17 12/20/19 lisinopril 10 mg PO QAM 12/20/19 12/20/19 lorazepam 0.5 mg PO BEDTIME 12/20/19 12/20/19 melatonin 6 mg PO BEDTIME 12/20/19 12/20/19 prednisone 10 mg PO QAM 12/20/19 12/20/19 ascorbic acid (vitamin C) [Vitamin 02/08/20 C] avatrombopag [Doptelet (10 tab 02/08/20 pack)] cholecalciferol (vitamin D3) 50 mcg PO DAILY 02/08/20 02/08/20 [Vitamin D3] elderberry fruit [Elderberry] mg PO 02/08/20 02/08/20 iron tab PO 02/08/20 multivitamin 1 tab PO DAILY 02/08/20 02/08/20 vitamin B complex 1 tab PO DAILY 02/08/20 02/08/20 Allergies Allergy/AdvReac Type Severity Reaction Status Date / Time latex Allergy Mild LOCAL RASH Verified 12/20/19 14:56 Penicillins Allergy Mild CHILDHOOD Verified 12/20/19 14:56 Sulfa (Sulfonamide Allergy Mild SOMETHING Verified 12/20/19 14:56 Antibiotics) TO DO WITH BLADDER OR KIDNEY'S?? iodine AdvReac Intermediate RAPID Verified 12/20/19 14:56 HEART RATE (IV CONTRAST) Review of Systems Review of Systems ROS Unobtainable: All systems reviewed & are unremarkable except as noted in HPI and below Constitutional Constitutional: Denies chills, Denies fever(s), Denies lethargy and Denies weakness Eyes Eyes: Denies change in vision, Denies eye discharge, Denies irritation and Denies loss of vision Cardiovascular Cardiovascular: Denies chest pain, Denies irregular heart rhythm, Denies lightheadedness, Denies palpitations, Denies dyspnea, Denies dyspnea on exertion and Denies orthopnea Respiratory Respiratory: Denies cough, Denies dyspnea, Denies dyspnea on exertion and Denies wheezing Gastrointestinal Gastrointestinal: Denies abdominal pain, Denies change in bowel habits, Denies diarrhea, Denies nausea and Denies vomiting Genitourinary Genitourinary: Reports as per HPI Genitourinary: Reports as per HPI Musculoskeletal Musculoskeletal: Denies back pain and Denies myalgias Integumentary/Breasts Skin/Breast: Denies pruritus, Denies erythema, Denies rash and Denies wounds Neurologic Neurologic: Denies loss of vision and Denies weakness Endocrine Endocrine: Denies palpitations Allergic/Immunologic Allergic/Immunologic: Denies wheezing Patient History Medical History (Updated 02/10/20 @ 09:57 by Precious Cox DO) Anxiety Atrial flutter Chronic steroid use History of ITP Hypertension Microscopic hematuria Osteoporosis Scoliosis Surgical History History of splenectomy History of tonsillectomy Status post hysterectomy Family History Father Cancer Mother Bleeding disorder alcohol intake frequency: 0-2 drinks per day Substance Use Type: does not use Exam Initial Vital Signs Initial Vital Signs: Vital Signs Temperature 98.2 F 02/10/20 07:06 Pulse Rate 74 02/10/20 07:06 Respiratory Rate 15 02/10/20 07:06 Blood Pressure 165/77 H 02/10/20 07:06 Pulse Oximetry 96 02/10/20 07:06 GENERAL: Pleasant alert 79-year-old female and in no acute distress. HEENT: Head atraumatic,EOMI, pupils reactive, face symmetric, moist mucous membranes CARDIOVASCULAR: Regular rate and rhythm without murmurs, rubs or gallops. RESPIRATORY: Breath sounds equal bilaterally, no wheezes rales or rhonchi. ABDOMEN: Soft, nontender. Normoactive bowel sounds all 4 quadrants. No guarding or rebound. PELVIC: External genitalia is normal, + scant vaginal bleeding, no lacerations suture noted in the right adnexa, no vaginal discharge, no odor, RECTAL no blood no hemorrhoid, hemoccult negative EXTREMITIES: Normal range of motion, no clubbing or edema. Neurovascularly intact NEUROLOGICAL: Alert and oriented x4.Normal gait and speech. SKIN: Warm, dry, no laceration, no petechiae, no rashes or lesions. Course Orders Ordered: ED Orders 02/10/20 07:15 Basic Metabolic Panel Stat Complete Blood Count AUTO DIFF Stat PT [Prothrombin Time INR] Stat Type and Screen Stat 02/10/20 07:48 US pelvic complete Stat Vital Signs Vital signs: Vital Signs - 8 hr 02/10/20 07:06 02/10/20 07:38 02/10/20 07:39 Temperature 98.2 F Pulse Rate 74 59 L Respiratory Rate 15 16 Blood Pressure 165/77 H 128/58 L Pulse Oximetry 96 98 98 02/10/20 08:00 02/10/20 09:06 02/10/20 09:30 Temperature Pulse Rate 69 64 58 L Respiratory Rate Blood Pressure 145/70 H 114/66 142/72 H Pulse Oximetry 97 95 96 02/10/20 09:59 02/10/20 10:00 02/10/20 10:14 Temperature Pulse Rate 81 Respiratory Rate Blood Pressure 155/76 H Pulse Oximetry 97 93 02/10/20 10:15 Temperature Pulse Rate Respiratory Rate Blood Pressure 150/76 H Pulse Oximetry MDM - Female Genitourinary Lab Data Result diagrams: 02/10/20 07:15 02/10/20 07:15 Labs: Lab Results 02/10/20 02/10/20 02/10/20 Range/Units 07:15 07:15 07:15 WBC 14.6 H (4.5-11.0) X10^3/uL RBC 4.10 (4.0-5.2) X10^6/uL Hgb 12.0 (12.0-16.0) g/dL Hct 37.2 (36-46) % MCV 90.8 (80-100) fL MCH 29.3 (26-34) PG MCHC 32.3 (30-36) % RDW 15.5 H (11.6-14.8) % Plt Count 879 H (150-400) X10^3/uL Neut % (Auto) 62.9 (50-75) % Lymph % (Auto) 24.8 L (25-40) % George % (Auto) 8.3 (3-14) % Eos % (Auto) 2.6 (2-4) % Baso % (Auto) 1.4 (0-2) % Neut # (Auto) 9200 H (1059-0447) /uL Lymph # (Auto) 3600 (5682-9518) /uL George # (Auto) 1200 H (0-900) /uL Eos # (Auto) 400 (0-450) /uL Baso # (Auto) 200 H (0-100) /uL Platelet Estimate Increased on smear RBC Morphology See below Acanthocytes (Spur) 1+ H PT (10.1-12.7) SECONDS INR (0.9-1.3) Sodium 136 L (137-145) mmol/L Potassium 4.0 (3.4-5.1) mmol/L Chloride 103 (98-107) mmol/L Carbon Dioxide 28 (22-32) mmol/L BUN 16 (7-17) mg/dL Creatinine 0.86 (0.52-1.04) mg/dL Estimated GFR > 60.0 (>60) mL/min BUN/Creatinine Ratio 18.6 (6-22) Glucose 86 (80-110) mg/dL Calcium 9.5 (8.4-10.2) mg/dL Blood Type O Negative Antibody Screen Negative 02/10/20 Range/Units 07:15 WBC (4.5-11.0) X10^3/uL RBC (4.0-5.2) X10^6/uL Hgb (12.0-16.0) g/dL Hct (36-46) % MCV (80-100) fL MCH (26-34) PG MCHC (30-36) % RDW (11.6-14.8) % Plt Count (150-400) X10^3/uL Neut % (Auto) (50-75) % Lymph % (Auto) (25-40) % George % (Auto) (3-14) % Eos % (Auto) (2-4) % Baso % (Auto) (0-2) % Neut # (Auto) (6306-7054) /uL Lymph # (Auto) (1871-6077) /uL George # (Auto) (0-900) /uL Eos # (Auto) (0-450) /uL Baso # (Auto) (0-100) /uL Platelet Estimate RBC Morphology Acanthocytes (Spur) PT 10.6 (10.1-12.7) SECONDS INR 0.9 (0.9-1.3) Sodium (137-145) mmol/L Potassium (3.4-5.1) mmol/L Chloride (98-107) mmol/L Carbon Dioxide (22-32) mmol/L BUN (7-17) mg/dL Creatinine (0.52-1.04) mg/dL Estimated GFR (>60) mL/min BUN/Creatinine Ratio (6-22) Glucose (80-110) mg/dL Calcium (8.4-10.2) mg/dL Blood Type Antibody Screen Imaging Data US - TRUCK RENTAL CLERK: Radiologist's Impression: PROCEDURE: US PELVIC COMPLETE INDICATIONS: VAGINAL BLEEDING TECHNIQUE: Real-time scanning was performed of the pelvic organs, with image documentation. Additional endovaginal scanning was necessary due to incomplete visualization of the adnexal and endometrial structures by transabdominal scanning. COMPARISON: None. FINDINGS: Transabdominal scanning: Limited scanning through the kidneys shows no hydronephrosis. No pathologic free abdominal or pelvic fluid. Endovaginal scanning: Uterus: Surgically absent Ovaries: Surgically absent IMPRESSION: Postsurgical changes as above otherwise negative examination Dictated by: Marky Renteria M.D. on 02/10/2020 at 9:12 MDM Narrative Medical decision making narrative: Patient is obviously having some vaginal bleeding which is unusual because she does not have a uterus. There is no rectal blood. I do not see any injury she denies any foreign bodies in her vagina, she states she did use her finger to insert her vaginal cream she does that regularly. He does have a history of ITP with platelets actually quite elevated. At this time she is hemodynamically stable. I recommend conservative treatment strongly encouraged her to return if bleeding worsens. 10:00am updated patient's symptoms test results at this time no Provera it will not be helpful without a uterus. Recommend follow-up in the clinic Discharge Plan Departure Patient Disposition: Home Clinical Impression: Vaginal bleeding Instructions: DI for Vaginal Bleeding Activity Restrictions/Additional Instructions: *You have been diagnosed with vaginal bleeding *What to do: Monitor bleeding. You may need to have a specialist evaluate you. *Continue to take medications as directed *Follow up with your primary care provider in 2-3 days *Return to ER if you should have vaginal bleeding more than 1 heavy had an hour, dizziness lightheadedness passing out or any new, worsening or concerning symptoms Prescriptions: No Action metoprolol succinate [Toprol XL] 25 MG tablet extended release 24 hr 12.5 mg PO QDAY Qty: 0 RF: 0 polyethylene glycol 3350 [Miralax] 17 GM powder in packet 17 gm PO BEDTIME Qty: 0 RF: 0 multivitamin Tablet 1 tab PO DAILY RF: 0 iron 50 mg iron Tablet PO RF: 0 ascorbic acid (vitamin C) [Vitamin C] 500 mg Tablet RF: 0 vitamin B complex Tablet 1 tab PO DAILY RF: 0 Elderberry 200 mg Capsule PO RF: 0 cholecalciferol (vitamin D3) [Vitamin D3] 50 mcg (2,000 unit) Capsule 50 mcg PO DAILY RF: 0 Doptelet (10 tab pack) 20 mg Tablet RF: 0 melatonin 6 mg 6 mg PO BEDTIME RF: 0 prednisone 10 mg tablet 10 mg PO QAM RF: 0 lorazepam 0.5 mg tablet 0.5 mg PO BEDTIME RF: 0 lisinopril 10 mg tablet 10 mg PO QAM RF: 0 Referrals: Henny Dinh PA-C [Primary Care Provider] - [place],MD Rafia [Physician] -
--- NOTE | 2020-02-10 07:48 | DI.US.S_ITS ---
PROCEDURE: US PELVIC COMPLETE INDICATIONS: VAGINAL BLEEDING TECHNIQUE: Real-time scanning was performed of the pelvic organs, with image documentation. Additional endovaginal scanning was necessary due to incomplete visualization of the adnexal and endometrial structures by transabdominal scanning. COMPARISON: None. FINDINGS: Transabdominal scanning: Limited scanning through the kidneys shows no hydronephrosis. No pathologic free abdominal or pelvic fluid. Endovaginal scanning: Uterus: Surgically absent Ovaries: Surgically absent IMPRESSION: Postsurgical changes as above otherwise negative examination Dictated by: Marky Renteria M.D. on 02/10/2020 at 9:12 Approved by: Marky Renteria M.D. on 02/10/2020 at 9:14
[2020-02-10 08:13] LABS: Add Manual Diff / Slide Review NO; Basophils Absolute Auto 200 /uL (0-100); Basophils Percent Auto 1.4 % (0-2); Eosinophils Absolute Auto 400 /uL (0-450); Eosinophils Percent Auto 2.6 % (2-4); Hematocrit 37.2 % (36-46); Lymphocytes Absolute Auto 3600 /uL (1100-4500); Lymphocytes Percent Auto 24.8 % (25-40); Mean Corpuscular HGB Conc 32.3 % (30-36); Mean Corpuscular Hemoglobin 29.3 PG (26-34); Mean Corpuscular Volume 90.8 fL (80-100); Monocytes Absolute Auto 1200 /uL (0-900); Monocytes Percent Auto 8.3 % (3-14); Neutrophils Absolute Auto 9200 /uL (1500-7000); Neutrophils Percent Auto 62.9 % (50-75); Platelet Count 879 X10^3/uL (150-400); Red Cell Distribution Width 15.5 % (11.6-14.8); White Blood Cell Count 14.6 X10^3/uL (4.5-11.0)
[2020-02-10 08:15] LABS: INR 0.9 (0.9-1.3); Prothrombin Time 10.6 SECONDS (10.1-12.7)
[2020-02-10 08:18] LABS: BUN Creatinine Ratio 18.6 (6-22); Blood Urea Nitrogen 16 mg/dL (7-17); Calcium 9.5 mg/dL (8.4-10.2); Carbon Dioxide 28 mmol/L (22-32); Chloride 103 mmol/L (98-107); Estimated Glomerular Filt Rate > 60.0 mL/min (>60); Glucose 86 mg/dL (80-110); HEMOLYSIS < 15 (0-50); Sodium 136 mmol/L (137-145)
[2020-02-10 08:51] LABS: Acanthocytes 1+
[2020-02-10 08:52] LABS: Platelet Estimate Increased on smear
== END 2020-02-10 10:37 | disposition home or self-care (01) ==
PROVIDERS: Emergency Provider Emergency Medicine; PCP Physician Assistant
DX: N93.9 Abnormal uterine and vaginal bleeding, unspecified (principal); Z86.2 Personal history of diseases of the blood and blood-forming organs and certain disorders involving the immune mechanism; I10 Essential (primary) hypertension; I48.92 Unspecified atrial flutter
CPT/HCPCS: 36415; 76830; 76856; 80048; 85025; 85610; 86850; 86900; 86901; 99283; 99284

== ENCOUNTER → 2020-02-15 06:37 | Outpatient (CLI) | payer MEDICARE, OTHER, SELFPAY ==
[2020-02-15 07:09] LABS: Basophils Absolute Auto 300 /uL (0-100); Basophils Percent Auto 2.6 % (0-2); Eosinophils Absolute Auto 400 /uL (0-450); Eosinophils Percent Auto 3.6 % (2-4); Hematocrit 34.7 % (36-46); Hemoglobin 11.7 g/dL (12.0-16.0); Lymphocytes Absolute Auto 3300 /uL (1100-4500); Lymphocytes Percent Auto 28.9 % (25-40); Mean Corpuscular HGB Conc 33.8 % (30-36); Mean Corpuscular Hemoglobin 30.3 PG (26-34); Mean Corpuscular Volume 89.5 fL (80-100); Monocytes Absolute Auto 1100 /uL (0-900); Monocytes Percent Auto 9.3 % (3-14); Neutrophils Absolute Auto 6400 /uL (1500-7000); Neutrophils Percent Auto 55.6 % (50-75); Red Blood Cell Count 3.87 X10^6/uL (4.0-5.2); Red Cell Distribution Width 15.5 % (11.6-14.8); White Blood Cell Count 11.5 X10^3/uL (4.5-11.0)
[2020-02-15 07:19] LABS: Add Manual Diff / Slide Review SLIDE REVIEW
[2020-02-15 08:08] LABS: Acanthocytes 1+; Anisocytosis 1+; Platelet Estimate Increased on smear
[2020-02-15 08:58] LABS: Platelet Count 964 X10^3/uL (150-400)
== END ==
PROVIDERS: PCP Physician Assistant; Referring Provider Physician Assistant; Visit Provider Internal Medicine Hematology
DX: D69.3 Immune thrombocytopenic purpura (principal)
CPT/HCPCS: 36415; 85025

== ENCOUNTER → 2020-02-16 06:39 | Outpatient (CLI) | payer MEDICARE, OTHER, SELFPAY ==
[2020-02-16 07:30] LABS: Add Manual Diff / Slide Review NO; Basophils Absolute Auto 300 /uL (0-100); Basophils Percent Auto 3.2 % (0-2); Eosinophils Absolute Auto 500 /uL (0-450); Eosinophils Percent Auto 4.5 % (2-4); Hematocrit 34.9 % (36-46); Hemoglobin 11.7 g/dL (12.0-16.0); Lymphocytes Absolute Auto 2900 /uL (1100-4500); Lymphocytes Percent Auto 29.1 % (25-40); Mean Corpuscular HGB Conc 33.6 % (30-36); Mean Corpuscular Hemoglobin 30.1 PG (26-34); Mean Corpuscular Volume 89.5 fL (80-100); Monocytes Absolute Auto 900 /uL (0-900); Monocytes Percent Auto 9.2 % (3-14); Neutrophils Absolute Auto 5400 /uL (1500-7000); Red Cell Distribution Width 15.6 % (11.6-14.8)
[2020-02-16 08:16] LABS: Platelet Estimate Increased on smear; RBC Morphology Normal Morphology
[2020-02-16 09:04] LABS: Platelet Count 922 X10^3/uL (150-400)
== END ==
PROVIDERS: PCP Physician Assistant; Referring Provider Internal Medicine Hematology; Visit Provider Internal Medicine Hematology
DX: D69.3 Immune thrombocytopenic purpura (principal)
CPT/HCPCS: 36415; 85025

== ENCOUNTER → 2020-02-21 06:37 | Outpatient (CLI) | payer MEDICARE, OTHER, SELFPAY | PROVIDERS: PCP Physician Assistant; Referring Provider Internal Medicine Hematology; Visit Provider Internal Medicine Hematology | DX: D69.3 Immune thrombocytopenic purpura (principal) ==

== ENCOUNTER 2020-02-26 05:37 | Inpatient (IN) | payer MEDICARE, OTHER, SELFPAY ==
[2020-02-26] VITALS (23 sets, daily range): BP systolic 116–159; BP diastolic 59–94; PULSE 62–145; RESP 11–26; TEMP 35.8–36.7; O2SAT 96–100; BMI 21.1
--- NOTE | 2020-02-26 05:46 | ED_ITS ---
HPI - GI Bleed General Chief complaint: GI Bleed Stated complaint: has ITP bleeding rectally Time Seen by Provider: 02/26/20 05:40 Source: patient Mode of arrival: Ambulatory Limitations: no limitations History of Present Illness HPI Narrative: 79-year-old female nonsmoker with history of ITP presents with a chief complaint of abdominal cramping, fatigue, dark and tarry stools as well as bright red blood in the toilet. She has had occasional nosebleeds and some bleeding of her gums. She is managed by [facility] and sees Dr. Bill locally. She's been seen a few times lately and has had wild swings in her platelet counts. She has been on Prednisone 40mg daily and recently increased Avatrombopag from 20mg t- 40mg daily. She has stated Amicar 1000mg q6. She's had a few IVIG infusions and had episodes with elevated platelets as high as 1,026,000 on 02/13. MD complaint: blood on toilet paper and melena Related Data Home Medications Medication Instructions Recorded Confirmed metoprolol succinate [Toprol XL] 12.5 mg PO QDAY #0 10/12/11 02/26/20 polyethylene glycol 3350 [Miralax] 17 gm PO BEDTIME PRN #0 05/26/17 02/26/20 lisinopril 10 mg PO QAM 12/20/19 02/26/20 lorazepam 0.5 mg PO BEDTIME 12/20/19 02/26/20 prednisone 40 mg PO QAM 12/20/19 02/26/20 ascorbic acid (vitamin C) [Vitamin 500 mg DAILY 02/08/20 02/26/20 C] avatrombopag [Doptelet (10 tab 20 mg BID 02/08/20 02/26/20 pack)] cholecalciferol (vitamin D3) 50 mcg PO DAILY 02/08/20 02/26/20 [Vitamin D3] elderberry fruit [Elderberry] 200 mg PO DAILY 02/08/20 02/26/20 multivitamin 1 tab PO DAILY 02/08/20 02/26/20 vitamin B complex 1 tab PO DAILY 02/08/20 02/26/20 cephalexin 500 mg PO BID 02/26/20 02/26/20 Previous Rx's Medication Instructions Recorded aminocaproic acid 1 g PO QID 20 Days #160 tab 02/23/20 Allergies Allergy/AdvReac Type Severity Reaction Status Date / Time latex Allergy Mild LOCAL RASH Verified 02/26/20 05:44 Penicillins Allergy Mild CHILDHOOD Verified 02/26/20 05:44 Sulfa (Sulfonamide Allergy Mild SOMETHING Verified 02/26/20 05:44 Antibiotics) TO DO WITH BLADDER OR KIDNEY'S?? iodine AdvReac Intermediate RAPID Verified 02/26/20 05:44 HEART RATE (IV CONTRAST) Review of Systems Constitutional Constitutional: Denies chills, Denies fatigue, Denies fever(s), Denies frequent falls, Denies lethargy and Denies weakness Eyes Eyes: Denies change in vision, Denies eye discharge, Denies irritation and Denies loss of vision ENT Ears, Nose, Mouth, and Throat: Denies change in voice, Denies dizziness, Reports epistaxis, Denies neck pain, Denies sore throat and Denies throat swelling Cardiovascular Cardiovascular: Denies chest pain, Denies irregular heart rhythm, Denies lightheadedness, Denies palpitations, Denies dyspnea, Denies dyspnea on exertion and Denies orthopnea Respiratory Respiratory: Denies cough, Denies dyspnea, Denies dyspnea on exertion and Denies wheezing Gastrointestinal Gastrointestinal: Reports abdominal pain, Reports melena, Reports hematochezia, Denies change in bowel habits, Reports change in stool character, Denies diarrhea, Denies nausea and Denies vomiting Musculoskeletal Musculoskeletal: Denies neck pain and Denies numbness Integumentary/Breasts Skin/Breast: Denies pruritus, Denies erythema, Denies rash, Reports unusual bruising and Denies wounds Neurologic Neurologic: Denies behavioral changes, Denies confusion, Denies dizziness, Denies frequent falls, Denies loss of vision, Denies numbness and Denies weakn ess Psychiatric Psychiatric: Denies anxiety, Denies behavioral changes, Denies confusion, Denies depression, Denies homicidal ideation and Denies suicidal ideation Endocrine Endocrine: Denies fatigue, Denies flushing and Denies palpitations Hematologic/Lymphatic Hematologic/Lymphatic: Denies easy bruising Allergic/Immunologic Allergic/Immunologic: Denies urticaria, Denies throat swelling and Denies wheezing Patient History Medical History Anxiety Atrial flutter Chronic steroid use History of ITP Hypertension Microscopic hematuria Osteoporosis Scoliosis Surgical History History of splenectomy History of tonsillectomy Status post hysterectomy Family History (Updated 02/26/20 @ 13:44 by Geoffrey Prakash MD) Father Cancer Mother Bleeding disorder Brother Brain cancer Social History marital status: household members: spouse lives independently: Yes Smoking Status: Never smoker alcohol intake: current Smoking Status: Never smoker alcohol intake frequency: 0-2 drinks per day Substance Use Type: does not use Exam Narrative Exam Narrative: GENERAL: [79] year old patient appears stated age. Well- nourished, well-developed patient, in mild distress. HEAD: Atraumatic. Normocephalic. EYES: Pupils equal round and reactive. Extraocular motions intact. No scleral icterus. No injection or drainage. ENT: Nose with small fresh clots bilaterally, purulent drainage. Petechiae noted intraorally. Throat without erythema, tonsillar hypertrophy or exudate. Airway patent. NECK: Trachea midline. Non tender CARDIOVASCULAR: Regular rate and rhythm without murmurs, gallops, or rubs. RESPIRATORY: Clear to auscultation. Breath sounds equal bilaterally. No wheezes, rales, or rhonchi. GASTROINTESTINAL: Abdomen soft, mildly tender, nondistended. Increased bowel sounds EXTREMITIES: No edema or joint tenderness. BACK: Nontender without deformity or crepitance. No flank tenderness. NEURO: AOx3. SKIN: Widespread petechiae. Otherwise no rash or erythema of visible areas Initial Vital Signs Initial Vital Signs: Vital Signs Temperature 97.7 F 02/26/20 05:46 Pulse Rate 75 02/26/20 05:46 Respiratory Rate 14 02/26/20 05:46 Blood Pressure 145/72 H 02/26/20 05:46 Pulse Oximetry 99 02/26/20 05:46 Course Orders Ordered: Ascorbic Acid (Ascorbic Acid 500 Mg Tablet) 500 mg PO DAILY MADALYN Calcium Carbonate (Calcium Carbonate 600 Mg Tablet) 600 mg PO DAILY MADALYN Docusate Sodium (Docusate 100 Mg Capsule) 100 mg PO BID MADALYN Last Admin: 02/26/20 20:16 Dose: Not Given Documented by: GRAEME Pantoprazole Sodium 80 mg/ (Sodium Chloride) 100 mls @ 10 mls/hr IV CONT MADALYN Last Admin: 02/26/20 13:47 Dose: 8 mg/hr, 10 mls/hr Documented by: KRYSTINA Lisinopril (Lisinopril 10 Mg Tablet) 10 mg PO DAILY [facility] Last Admin: 02/26/20 13:52 Dose: 10 mg Documented by: KRYSTINA Lorazepam (Lorazepam 0.5 Mg Tablet) 0.5 mg PO BEDTIME [facility] Last Admin: 02/26/20 20:10 Dose: 0.5 mg Documented by: GRAEME Metoprolol Succinate (Metoprolol Er 25 Mg Tablet) 12.5 mg PO DAILY [facility] Last Admin: 02/26/20 13:47 Dose: 12.5 mg Documented by: KRYSTINA Multivitamins (Multivitamin 1 Tablet) 1 tab PO DAILY [facility] Naloxone HCl (Naloxone 0.4 Mg/Ml Vial) 0.2 mg IV Q2MIN PRN PRN Reason: Opiate Reversal Stored In Pharmacy 0 each PO PRN PRN PRN Reason: . Aminocaproic Acid (500 Mg Tablet) 1 gram PO QID [facility] Last Admin: 02/26/20 20:06 Dose: 1 gram Documented by: Admin: 02/26/20 17:26 Dose: 1 gram Documented by: Admin: 02/26/20 13:50 Dose: 1 gram Documented by: KRYSTINA Avatrombopag [ Doptelet (10 Tab Pack)] 40 Mg 40 mg PO DAILY [facility] Last Admin: 02/26/20 15:08 Dose: 40 mg Documented by: KRYSTINA Ondansetron HCl (Ondansetron 4 Mg/2 Ml Inj) 4 mg IV Q8HR PRN PRN Reason: Nausea And Vomiting Polyethylene Glycol (Polyethylene Glycol 3350 17 Gm Powd.Pack) 17 gm PO BEDTIME PRN PRN Reason: Constipation Last Admin: 02/26/20 20:16 Dose: 17 gm Documented by: GRAEME Prednisone (Prednisone 20 Mg Tablet) 40 mg PO DAILY [facility] Sennosides (Sennosides 8.6 Mg Tablet) 17.2 mg PO BEDTIME [facility] Last Admin: 02/26/20 20:09 Dose: 17.2 mg Documented by: GRAEME Vitamin B Complex (Vitamin B Complex 1 Capsule) 1 cap PO DAILY [facility] Vitamin D (Cholecalciferol (Vitamin D3) 1,000 Unit Tablet) 2,000 unit PO DAILY MADALYN Discontinued Medications Acetaminophen (Acetaminophen 325 Mg Tablet) 650 mg PO NOW ONE Stop: 02/26/20 07:45 Last Admin: 02/26/20 07:50 Dose: 650 mg Documented by: FAREED Diphenhydramine HCl (Diphenhydramine 50 Mg/Ml Vial) 25 mg IV NOW ONE Stop: 02/26/20 07:45 Last Admin: 02/26/20 07:51 Dose: 25 mg Documented by: FAREED Immune Globulin 40 gm/ (Miscellaneous) 400 mls @ 0 mls/hr IV NOW ONE Stop: 02/26/20 06:09 Last Infusion: 02/26/20 08:33 Dose: 66 mls/hr Documented by: Admin: 02/26/20 07:59 Dose: 33.5 mls/hr Documented by: FAREED Avatrombopag [ Doptelet (10 Tab Pack)] 20 Mg Tablet 20 mg PO BIDWM [facility] Consultations Consultation #1: discussed with oncall Hematology (Dr. Dawkins). After lengthy discussion of case and recent events he recommends IVIG 40g followed by 6 pack of platelets and admission if needed. Vital Signs Vital signs: Vital Signs - 8 hr 02/26/20 05:46 02/26/20 06:00 02/26/20 06:01 Temperature 97.7 F Pulse Rate 76 69 69 Respiratory Rate 14 26 H 24 Blood Pressure 145/72 H 147/72 H Pulse Oximetry 99 99 98 MDM - GI Bleed Lab Data Result diagrams: 02/26/20 06:00 02/26/20 06:00 Labs: Lab Results 02/26/20 02/26/20 02/26/20 Range/Units 06:00 06:00 06:00 WBC 13.1 H (4.5-11.0) X10^3/uL RBC 3.31 L (4.0-5.2) X10^6/uL Hgb 10.0 L (12.0-16.0) g/dL Hct 29.7 L (36-46) % MCV 89.6 (80-100) fL MCH 30.1 (26-34) PG MCHC 33.6 (30-36) % RDW 46.4 H (11.6-14.8) % Plt Count 2 L* (150-400) X10^3/uL Neut % (Auto) 56.1 (50-75) % Lymph % (Auto) 32.3 (25-40) % Ritchie % (Auto) 9.5 (3-14) % Eos % (Auto) 1.5 L (2-4) % Baso % (Auto) 0.6 (0-2) % Neut # (Auto) 7300 H (5607-5537) /uL Lymph # (Auto) 4200 (0169-4815) /uL Ritchie # (Auto) 1200 H (0-900) /uL Eos # (Auto) 200 (0-450) /uL Baso # (Auto) 100 (0-100) /uL Platelet Estimate Decreased on smear RBC Morphology Normal morphology PT 10.4 (10.1-12.7) SECONDS INR 0.9 (0.9-1.3) APTT 27 D (26.4-36.2) SECONDS Sodium 134 L (137-145) mmol/L Potassium 4.0 (3.4-5.1) mmol/L Chloride 102 (98-107) mmol/L Carbon Dioxide 29 (22-32) mmol/L BUN 23 H (7-17) mg/dL Creatinine 0.91 (0.52-1.04) mg/dL Estimated GFR 59.6 L (>60) mL/min BUN/Creatinine Ratio 25.3 H (6-22) Glucose 86 (80-110) mg/dL Calcium 9.0 (8.4-10.2) mg/dL Total Bilirubin 0.5 (0.2-1.3) mg/dL AST 21 (14-36) IU/L ALT 14 (<35) IU/L Alkaline Phosphatase 47 (38-126) U/L Total Protein 7.1 (6.3-8.2) g/dL Albumin 3.9 (3.5-5.0) g/dL Globulin 3.2 (1.7-4.1) g/dL Albumin/Globulin Ratio 1.2 (1.0-2.8) SARS-CoV-2 (PCR) (Negative) Blood Type Antibody Screen 02/26/20 02/26/20 Range/Units 06:35 06:45 WBC (4.5-11.0) X10^3/uL RBC (4.0-5.2) X10^6/uL Hgb (12.0-16.0) g/dL Hct (36-46) % MCV (80-100) fL MCH (26-34) PG MCHC (30-36) % RDW (11.6-14.8) % Plt Count (150-400) X10^3/uL Neut % (Auto) (50-75) % Lymph % (Auto) (25-40) % Ritchie % (Auto) (3-14) % Eos % (Auto) (2-4) % Baso % (Auto) (0-2) % Neut # (Auto) (5348-8460) /uL Lymph # (Auto) (6795-0857) /uL Ritchie # (Auto) (0-900) /uL Eos # (Auto) (0-450) /uL Baso # (Auto) (0-100) /uL Platelet Estimate RBC Morphology PT (10.1-12.7) SECONDS INR (0.9-1.3) APTT (26.4-36.2) SECONDS Sodium (137-145) mmol/L Potassium (3.4-5.1) mmol/L Chloride (98-107) mmol/L Carbon Dioxide (22-32) mmol/L BUN (7-17) mg/dL Creatinine (0.52-1.04) mg/dL Estimated GFR (>60) mL/min BUN/Creatinine Ratio (6-22) Glucose (80-110) mg/dL Calcium (8.4-10.2) mg/dL Total Bilirubin (0.2-1.3) mg/dL AST (14-36) IU/L ALT (<35) IU/L Alkaline Phosphatase (38-126) U/L Total Protein (6.3-8.2) g/dL Albumin (3.5-5.0) g/dL Globulin (1.7-4.1) g/dL Albumin/Globulin Ratio (1.0-2.8) SARS-CoV-2 (PCR) Negative (Negative) Blood Type O Negative Antibody Screen Negative MDM Narrative Medical decision making narrative: Patient fatigued with abdominal pain, melena, nosebleeds, mild intraoral bleeds with ITP and current PLT of 2,000. She will be getting IVIG and platelet 6 pack and observation and stabilization of symptoms. Discharge Plan Departure Patient Disposition: Admitted As Inpatient Clinical Impression: Thrombocytopenia, Acute GI bleeding Admit Date/Time: 02/26/20 08:53 Admit Provider: Smiley Sullivan
[2020-02-26 06:25] LABS: Alanine Aminotransferase 14 IU/L (<35); Albumin 3.9 g/dL (3.5-5.0); Albumin Globulin Ratio 1.2 (1.0-2.8); Alkaline Phosphatase 47 U/L (38-126); Aspartate Aminotransferase 21 IU/L (14-36); BUN Creatinine Ratio 25.3 (6-22); Bilirubin Total 0.5 mg/dL (0.2-1.3); Blood Urea Nitrogen 23 mg/dL (7-17); Carbon Dioxide 29 mmol/L (22-32); Chloride 102 mmol/L (98-107); Estimated Glomerular Filt Rate 59.6 mL/min (>60); Globulin 3.2 g/dL (1.7-4.1); Glucose 86 mg/dL (80-110); HEMOLYSIS < 15 (0-50); Sodium 134 mmol/L (137-145); Total Protein 7.1 g/dL (6.3-8.2)
[2020-02-26 06:31] LABS: INR 0.9 (0.9-1.3); Prothrombin Time 10.4 SECONDS (10.1-12.7)
[2020-02-26 06:34] LABS: PTT Partial Thromboplastin Tim 27 SECONDS (26.4-36.2)
[2020-02-26 06:38] LABS: Hematocrit 29.7 % (36-46); Red Blood Cell Count 3.31 X10^6/uL (4.0-5.2); White Blood Cell Count 13.1 X10^3/uL (4.5-11.0)
[2020-02-26 06:39] LABS: Mean Corpuscular HGB Conc 33.6 % (30-36); Mean Corpuscular Hemoglobin 30.1 PG (26-34); Mean Corpuscular Volume 89.6 fL (80-100); Red Cell Distribution Width 46.4 % (11.6-14.8)
[2020-02-26 06:40] LABS: Basophils Percent Auto 0.6 % (0-2); Eosinophils Percent Auto 1.5 % (2-4); Lymphocytes Percent Auto 32.3 % (25-40); Monocytes Percent Auto 9.5 % (3-14); Neutrophils Percent Auto 56.1 % (50-75); Platelet Count 2 X10^3/uL (150-400)
[2020-02-26 06:41] LABS: Add Manual Diff / Slide Review SLIDE REVIEW; Basophils Absolute Auto 100 /uL (0-100); Eosinophils Absolute Auto 200 /uL (0-450); Lymphocytes Absolute Auto 4200 /uL (1100-4500); Monocytes Absolute Auto 1200 /uL (0-900); Neutrophils Absolute Auto 7300 /uL (1500-7000)
[2020-02-26 07:09] LABS: COVID19 -Nasal RAPID Negative (Negative)
[2020-02-26] MEDS: ACETAMINOPHEN 325 MG TABLET 650 MG PO (07:50)
[2020-02-26] MEDS: diphenhydrAMINE 50 MG/ML VIAL 25 MG IV (07:51)
[2020-02-26] MEDS: ISOOSMOTIC VEHICLE IV (07:59)
[2020-02-26] MEDS: IMMUNE GLOBULIN IV (07:59)
--- NOTE | 2020-02-26 08:04 | PC.NURSE ---
Protocol reviewed with [facility] Pharmacist. Dose calculations verified with Yong PRADHAN.
--- NOTE | 2020-02-26 08:22 | PC.NURSE ---
Patient repositioned. Patient reports some nausea, declines any antiemetics at this time. Patient thinks it will settle down with Ensure. Awaiting from dietary.
[2020-02-26 08:24] LABS: Platelet Estimate Decreased on smear; RBC Morphology Normal Morphology
--- NOTE | 2020-02-26 08:38 | PC.NURSE ---
Patient drinking Ensure at this time and seems to be settling her stomach.
--- NOTE | 2020-02-26 12:11 | P.HP_ITS ---
History of Present Illness History of Present Illness Date Patient Seen: 02/26/20 Time Patient Seen: 13:50 Chief complaint: has ITP bleeding rectally Narrative: This is a 79-year-old female with a history of ITP since 2006 who presents with platelets of 2000 and melena last night. She has also had some epistaxis. After initial evaluation and discussion with Hematology a matched 6 pack of platelets has been ordered along with a dose of IVIG and continuation of her ITP medication - Avatrombopag. She has not had GI bleeding before. Her condition has been managed by her [facility] end packer Dr. Smith and Dr. Bill locally. Her initial hemoglobin this morning at 6:00 a.m. is 10.0. There has been no evident bleeding since although the patient does report a sense of bloating. She has had no signs of any other contributing illness including no chest pain, shortness of breath, vomiting, nausea, dysuria, fevers, chills, sweats, rashes. The petechia has been quite severe over the last week as result of the known thrombocytopenia. Her platelets have been in the 7731-9014 range. She has been seeing Hematology daily. There was some hesitation to give the IVIG because the last time that was given in conjunction with the Avatrombopag her platelets reached 641,000 on 01/31 and 1,026,000 on 02/13. She has also recently been started on Amicar. She says that she would like to be DNR but indicates that she does want to be full code in the context of ?who would take care of my ?? 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 Patient History Medical History Anxiety Atrial flutter Chronic steroid use History of ITP Hypertension Microscopic hematuria Osteoporosis Scoliosis Surgical History History of splenectomy History of tonsillectomy Status post hysterectomy Comment: Allergies to latex, penicillin, sulfa and iodine Current medications include lisinopril 10 mg daily, as needed lorazepam, melatonin 6 mg at HS, metoprolol 12.5 mg daily, as needed MiraLax, prednisone 10 mg daily,and Avatrombopag 20 mg daily History of restless leg syndrome attributed to iron deficiency anemia in the past Nonmelanoma skin cancers History of cellulitis in her legs which she was admitted to the [facility] October of 2018 History of atrial flutter Osteoporosis. She sees Dr. Echevarria in [place] and has received 2 doses of Reclast with improvement History of micro hematuria High blood pressure History of scoliosis She denies diabetes, rheumatic fever, tuberculosis, heart attacks, strokes, stomach ulcers, pneumonia or any other kind of cancer. Family & Social History Family History (Updated 02/26/20 @ 13:44 by Geoffrey Prakash MD) Father Cancer Mother Bleeding disorder Brother Brain cancer Social History: household members spouse Prior Living Arrangements House lives independently Yes Safety & Behavioral: Feels Safe in Current Yes Environment Been Physically Hurt or No Threatened By a Person Suicidal Ideation Description None Suicide Plan Description No Plan Tobacco & Substance use: Smoking Status Never smoker alcohol intake current alcohol intake frequency 0-2 drinks per day Substance Use Type does not use Comment: Her backup decision maker is her daughter Estefany Snow at phone number [phone] Meds Home Medications and Allergies Home Medications Medication Instructions Recorded Confirmed Type metoprolol succinate [Toprol XL] 12.5 mg PO QDAY #0 10/12/11 02/26/20 History polyethylene glycol 3350 [Miralax] 17 gm PO BEDTIME PRN #0 05/26/17 02/26/20 History lisinopril 10 mg PO QAM 12/20/19 02/26/20 History lorazepam 0.5 mg PO BEDTIME 12/20/19 02/26/20 History prednisone 40 mg PO QAM 12/20/19 02/26/20 History ascorbic acid (vitamin C) [Vitamin 500 mg DAILY 02/08/20 02/26/20 History C] avatrombopag [Doptelet (10 tab 20 mg BID 02/08/20 02/26/20 History pack)] cholecalciferol (vitamin D3) 50 mcg PO DAILY 02/08/20 02/26/20 History [Vitamin D3] elderberry fruit [Elderberry] 200 mg PO DAILY 02/08/20 02/26/20 History multivitamin 1 tab PO DAILY 02/08/20 02/26/20 History vitamin B complex 1 tab PO DAILY 02/08/20 02/26/20 History aminocaproic acid 1 g PO QID 20 Days #160 tab 02/23/20 02/26/20 Rx cephalexin 500 mg PO BID 02/26/20 02/26/20 History Allergies Allergy/AdvReac Type Severity Reaction Status Date / Time latex Allergy Mild LOCAL RASH Verified 02/26/20 05:44 Penicillins Allergy Mild CHILDHOOD Verified 02/26/20 05:44 Sulfa (Sulfonamide Allergy Mild SOMETHING Verified 02/26/20 05:44 Antibiotics) TO DO WITH BLADDER OR KIDNEY'S?? iodine AdvReac Intermediate RAPID Verified 02/26/20 05:44 HEART RATE (IV CONTRAST) Review of Systems Review of Systems Narrative: Positive for dark red stool, petechia on her legs, recent vaginal bleeding, anxiety, bruising, abdominal bloating. Negative for fevers, chills, sweats, shortness of breath, chest pain, abdominal pain, nausea, vomiting, seizures, rashes, coughing, dysuria, trouble talking, new allergies. ROS: Yes All systems reviewed with the patient and are negative except as otherwise documented Exam Vital Signs (past 8 hours): - 02/26/20 05:46 02/26/20 06:00 02/26/20 06:01 Temperature 97.7 F Pulse Rate 76 69 69 Respiratory Rate 14 26 H 24 Blood Pressure 145/72 H 147/72 H Pulse Oximetry 99 99 98 02/26/20 06:30 02/26/20 07:00 02/26/20 07:30 Temperature 98.1 F Pulse Rate 145 H 62 108 H Respiratory Rate 19 11 L 23 Blood Pressure 145/87 H 151/68 H Pulse Oximetry 97 98 99 02/26/20 07:31 02/26/20 07:39 02/26/20 08:00 Temperature Pulse Rate 78 74 Respiratory Rate 17 14 Blood Pressure 142/62 H 159/72 H 144/82 H Pulse Oximetry 99 99 02/26/20 08:05 02/26/20 08:30 02/26/20 09:00 Temperature 98.1 F Pulse Rate 98 H 91 H 74 Respiratory Rate 12 14 14 Blood Pressure 144/82 H 145/67 H 119/59 L Pulse Oximetry 99 96 98 02/26/20 09:30 02/26/20 09:55 Temperature 97.7 F Pulse Rate 74 81 Respiratory Rate 13 16 Blood Pressure 128/68 139/69 Pulse Oximetry 97 99 Oxygen Delivery Method Room Air Narrative Exam Narrative: She is alert and oriented x3. Pupils are equally round reactive to light and accommodation. Sclerae are are pink, somewhat injected, nonicteric. Throat looks normal except for multiple petechia. No lymph nodes are felt head, neck, supraclavicular area. JVD is less than 6 cm There is no carotid bruits heard. Heart is regular rate and rhythm without murmur. Lungs are clear to auscultation bilaterally. Abdomen is soft, bowel sounds positive mildly bloated, nontender, no organomegaly. Breasts pelvic and rectal exams are not done today. Neurological exam. Deep tendon reflexes are symmetric bilaterally. Cranial nerves 2-12 test intact. There is no tremor. Motor function is 4/5 throughout. Skin without rash but with diffuse bruising and petechia particularly prominent on the lower extremities. There is no jaundice. Objective Labs Result Diagrams: 02/26/20 06:00 02/26/20 06:00 Labs: Laboratory Results - last 24 hr 02/26/20 02/26/20 02/26/20 06:00 06:00 06:00 WBC 13.1 H RBC 3.31 L Hgb 10.0 L Hct 29.7 L MCV 89.6 MCH 30.1 MCHC 33.6 RDW 46.4 H Plt Count 2 L* Neut % (Auto) 56.1 Lymph % (Auto) 32.3 O'Brien % (Auto) 9.5 Eos % (Auto) 1.5 L Baso % (Auto) 0.6 Neut # (Auto) 7300 H Lymph # (Auto) 4200 O'Brien # (Auto) 1200 H Eos # (Auto) 200 Baso # (Auto) 100 Platelet Estimate Decreased on smear RBC Morphology Normal morphology PT 10.4 INR 0.9 APTT 27 D Sodium 134 L Potassium 4.0 Chloride 102 Carbon Dioxide 29 BUN 23 H Creatinine 0.91 Estimated GFR 59.6 L BUN/Creatinine Ratio 25.3 H Glucose 86 Calcium 9.0 Total Bilirubin 0.5 AST 21 ALT 14 Alkaline Phosphatase 47 Total Protein 7.1 Albumin 3.9 Globulin 3.2 Albumin/Globulin Ratio 1.2 SARS-CoV-2 (PCR) Blood Type Antibody Screen 02/26/20 02/26/20 06:35 06:45 WBC RBC Hgb Hct MCV MCH MCHC RDW Plt Count Neut % (Auto) Lymph % (Auto) O'Brien % (Auto) Eos % (Auto) Baso % (Auto) Neut # (Auto) Lymph # (Auto) O'Brien # (Auto) Eos # (Auto) Baso # (Auto) Platelet Estimate RBC Morphology PT INR APTT Sodium Potassium Chloride Carbon Dioxide BUN Creatinine Estimated GFR BUN/Creatinine Ratio Glucose Calcium Total Bilirubin AST ALT Alkaline Phosphatase Total Protein Albumin Globulin Albumin/Globulin Ratio SARS-CoV-2 (PCR) Negative Blood Type O Negative Antibody Screen Negative Assessment & Plan Assessment & Plan narrative: GI Bleeding, present on admission. Active. -melena appearing stool on her iPhone picture suggests an upper GI source of likely duodenitis/gastritis from thrombocytopenia. -we will begin continous IV Protonix drip -it would not be safe to accomplish endoscopic evaluation at this point with platelets of 2000. -Plan surgical consultation for endoscopy if bleeding persists and anemia worsens after platelets are stabilized -follow serial H/H and transfuse for hemoglobins less than 7.0 ITP, present on admission. Active. -per phone consultation with Hematology she will be continued on prednisone 40 mg a day, Aminocaproic Acid and Avatrombopag -matched platelets 6 pack ordered and pending transfusion. -follow serial platelet levels -control blood pressure to decrease intracranial hemorrhage risk -follow serial hematocrit/hemoglobin and transfuse as indicated Hypertension, present on admission. Active -continue lisinopril and metoprolol -control blood pressure closely to decrease risk of intracranial hemorrhage. Chronic Steroid Use, present on admission. Active -she reports that her usual daily prednisone dose is 5 mg, recently increased to 10 mg and currently on 40 mg. Osteoporosis, present on admission. Chronic -continue vitamin-D and calcium. Full Code status -She would prefer to be DNR but ultimately decides that she needs to try to be around to take care of her . Anxiety, present on admission. Chronic -Continue HS Lorazepam home dose
[2020-02-26] MEDS: METOPROLOL ER 25 MG TABLET 12.5 MG PO (13:47)
[2020-02-26] MEDS: PANTOPRAZOLE 80 MG in SODIUM CHLORIDE 0.9% 100 ML 10 ML IV (13:47)
[2020-02-26] MEDS: lisinopriL 10 MG TABLET PO (13:52)
[2020-02-26] MEDS: [UNRECOGNIZED DRUG - OTHER] 40 EACH PO (15:08)
[2020-02-26] MEDS: SENNOSIDES 8.6 MG TABLET 17.2 MG PO (20:09)
[2020-02-26] MEDS: LORazepam 0.5 MG TABLET PO (20:10)
[2020-02-26] MEDS: polyethylene glycoL 3350 17 GM POWD.PACK PO (20:16)
[2020-02-26 23:15] LABS: Add Manual Diff / Slide Review NO; Basophils Absolute Auto 100 /uL (0-100); Basophils Percent Auto 0.6 % (0-2); Eosinophils Absolute Auto 100 /uL (0-450); Eosinophils Percent Auto 1.3 % (2-4); Lymphocytes Absolute Auto 2700 /uL (1100-4500); Lymphocytes Percent Auto 25.6 % (25-40); Mean Corpuscular HGB Conc 33.5 % (30-36); Mean Corpuscular Hemoglobin 30.2 PG (26-34); Mean Corpuscular Volume 90.3 fL (80-100); Monocytes Absolute Auto 1000 /uL (0-900); Monocytes Percent Auto 9.1 % (3-14); Neutrophils Absolute Auto 6800 /uL (1500-7000); Neutrophils Percent Auto 63.4 % (50-75); Red Blood Cell Count 2.66 X10^6/uL (4.0-5.2); Red Cell Distribution Width 15.5 % (11.6-14.8); White Blood Cell Count 10.7 X10^3/uL (4.5-11.0)
[2020-02-26 23:18] LABS: Platelet Count 108 X10^3/uL (150-400)
[2020-02-27] MEDS: PANTOPRAZOLE 80 MG in SODIUM CHLORIDE 0.9% 100 ML 10 ML IV (02:30)
[2020-02-27 05:15] VITALS: BP 148/90; PULSE 77; RESP 18; TEMP 36.7; O2SAT 98
[2020-02-27 05:40] LABS: Add Manual Diff / Slide Review NO; Basophils Absolute Auto 100 /uL (0-100); Basophils Percent Auto 1.1 % (0-2); Eosinophils Absolute Auto 300 /uL (0-450); Eosinophils Percent Auto 2.6 % (2-4); Hematocrit 26.7 % (36-46); Hemoglobin 8.9 g/dL (12.0-16.0); Lymphocytes Absolute Auto 4000 /uL (1100-4500); Lymphocytes Percent Auto 37.8 % (25-40); Mean Corpuscular HGB Conc 33.3 % (30-36); Mean Corpuscular Hemoglobin 30.3 PG (26-34); Mean Corpuscular Volume 90.9 fL (80-100); Monocytes Absolute Auto 1000 /uL (0-900); Monocytes Percent Auto 8.9 % (3-14); Neutrophils Absolute Auto 5300 /uL (1500-7000); Neutrophils Percent Auto 49.6 % (50-75); Platelet Count 121 X10^3/uL (150-400); Red Blood Cell Count 2.94 X10^6/uL (4.0-5.2); Red Cell Distribution Width 15.4 % (11.6-14.8); White Blood Cell Count 10.7 X10^3/uL (4.5-11.0)
[2020-02-27 05:53] LABS: Alanine Aminotransferase 14 IU/L (<35); Albumin 3.6 g/dL (3.5-5.0); Albumin Globulin Ratio 0.9 (1.0-2.8); Alkaline Phosphatase 48 U/L (38-126); Aspartate Aminotransferase 20 IU/L (14-36); BUN Creatinine Ratio 22.2 (6-22); Bilirubin Total 0.6 mg/dL (0.2-1.3); Blood Urea Nitrogen 22 mg/dL (7-17); Calcium 8.9 mg/dL (8.4-10.2); Carbon Dioxide 33 mmol/L (22-32); Chloride 104 mmol/L (98-107); Estimated Glomerular Filt Rate 54.1 mL/min (>60); Glucose 80 mg/dL (80-110); HEMOLYSIS < 15 (0-50); Potassium 4.2 mmol/L (3.4-5.1); Sodium 135 mmol/L (137-145); Total Protein 7.6 g/dL (6.3-8.2)
[2020-02-27 08:00] VITALS: BP 151/85; PULSE 73; RESP 18; TEMP 36.6; O2SAT 96
[2020-02-27] MEDS: METOPROLOL ER 25 MG TABLET 12.5 MG PO (09:58)
[2020-02-27] MEDS: lisinopriL 10 MG TABLET PO (09:59)
[2020-02-27] MEDS: MULTIVITAMIN 1 TABLET 1 TAB PO (09:59)
[2020-02-27] MEDS: CHOLECALCIFEROL (VITAMIN D3) 1,000 UNIT TABLET 2000 UNIT PO (09:59)
[2020-02-27] MEDS: predniSONE 20 MG TABLET 40 MG PO (09:59)
[2020-02-27] MEDS: [UNRECOGNIZED DRUG - OTHER] 40 EACH PO (10:01)
--- NOTE | 2020-02-27 10:17 | CM.DANOTE ---
DCP: Case received, EMR reviewed and met with patient. Introduced self and role. Was able to obtain information from patient regarding her baseline activity status and living situation prior to hospital admission. DCP assessment completed with information currently available. Patient is a 79 year old female who admitted yesterday morning to the care of the hospitalist team. PCP: Henny Dinh at [facility]. Payer: confirmed: Medicare. Patient came to the hospital via private vehicle secondary to having abdominal cramping, dark tarry stools, as well as fatigue. Patient was noted to have acute GI bleed/Thrombocytopenia. Patient has history of ITP. She is receiving IV IG. She is also under the care of Dr. Burgess in oncology. Met with patient in her room. She is pleasant. She was sitting up in her bed finishing up her breakfast. She is alert and oriented. Confirmed with patient that she is independent at baseline, active. She exercises daily on her treadmill at home. She resides with her , Jayson, in [place]. Patient indicated that her has medical issues, had a defibrillator implanted last year for cardiac arrest. 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 She indicated that her daughter, Brenda, also can assist if needed, but is not local. P: DCP to continue to follow. Plan is for home, most likely tomorrow. She may also be having surgical consult. This was discussed at team rounds. Fabiola Veliz RN/Bias Machine Operator Helper
[2020-02-27 13:00] VITALS: BP 148/72; PULSE 80; RESP 18; TEMP 36.5; O2SAT 99
--- NOTE | 2020-02-27 14:45 | P.PN_ITS ---
Subjective Subjective Date Patient Seen: 02/27/20 Interval history: The patient is a 79-year-old female with a history of ITP who presented to the hospital with a platelet count of 2000. She had developed abdominal cramping and bloody diarrhea. The patient had bleeding from her nares as well. She received IVIG in the emergency department. Patient received a 6 pack of platelets with improvement of her platelet count. Platelet count today is 121,000. However she did pass a maroon bloody stool earlier today. Patient has a right lower extremity cellulitis and would like to resume her outpatient antibiotics. Exam Vital Signs (past 8 hours): - 02/27/20 08:00 02/27/20 13:00 Temperature 97.9 F 97.7 F Pulse Rate 73 80 Respiratory Rate 18 18 Blood Pressure 151/85 H 148/72 H Pulse Oximetry 96 99 Oxygen Delivery Method Room Air Narrative Exam Narrative: Pleasant female resting comfortably somewhat anxious Lungs: Clear to auscultation Cardiac exam: Regular rate and rhythm normal S1-S2 Abdomen: Soft nontender nondistended Extremities: Right lower extremity with dressing in place Objective Labs Result Diagrams: 02/27/20 05:15 02/27/20 05:15 Labs: Laboratory Results - last 24 hr 02/26/20 02/26/20 02/27/20 06:35 23:00 05:15 WBC 10.7 10.7 RBC 2.66 L 2.94 L Hgb 8.0 L 8.9 L Hct 24.0 L 26.7 L MCV 90.3 90.9 MCH 30.2 30.3 MCHC 33.5 33.3 RDW 15.5 H 15.4 H Plt Count 108 L 121 L Neut % (Auto) 63.4 49.6 L Lymph % (Auto) 25.6 37.8 [place] % (Auto) 9.1 8.9 Eos % (Auto) 1.3 L 2.6 Baso % (Auto) 0.6 1.1 Neut # (Auto) 6800 5300 Lymph # (Auto) 2700 4000 [place] # (Auto) 1000 H 1000 H Eos # (Auto) 100 300 Baso # (Auto) 100 100 Sodium Potassium Chloride Carbon Dioxide BUN Creatinine Estimated GFR BUN/Creatinine Ratio Glucose Calcium Total Bilirubin AST ALT Alkaline Phosphatase Total Protein Albumin Globulin Albumin/Globulin Ratio Blood Type O Negative Antibody Screen Negative 01/17/21 05:15 WBC RBC Hgb Hct MCV MCH MCHC RDW Plt Count Neut % (Auto) Lymph % (Auto) [place] % (Auto) Eos % (Auto) Baso % (Auto) Neut # (Auto) Lymph # (Auto) [place] # (Auto) Eos # (Auto) Baso # (Auto) Sodium 135 L Potassium 4.2 Chloride 104 Carbon Dioxide 33 H BUN 22 H Creatinine 0.99 Estimated GFR 54.1 L BUN/Creatinine Ratio 22.2 H Glucose 80 Calcium 8.9 Total Bilirubin 0.6 AST 20 ALT 14 Alkaline Phosphatase 48 Total Protein 7.6 Albumin 3.6 Globulin 4.0 Albumin/Globulin Ratio 0.9 L Blood Type Antibody Screen [facility] Medical History Anxiety Atrial flutter Chronic steroid use History of ITP Hypertension Microscopic hematuria Osteoporosis Scoliosis Surgical History History of splenectomy History of tonsillectomy Status post hysterectomy Family History (Updated 02/26/20 @ 13:44 by Geoffrey Prakash MD) Father Cancer Mother Bleeding disorder Brother Brain cancer Social History marital status: household members: spouse lives independently: Yes Smoking Status: Never smoker alcohol intake: current Assessment & Plan Assessment & Plan narrative: Assessment & Plan narrative: GI Bleeding, present on admission. Active. -if patient continues to pass blood -this likely represents losing from her thrombocytopenia -will discontinue IV Protonix at this point -will commit continue to monitor her CBC -no intervention at this time Acute blood loss anemia -hemoglobin dropped from 11 g to 8.3 -this is directly related to her thrombocytopenia and GI bleeding as noted above -no need to transfuse unless hemoglobin less than 8 -will repeat CBC in the morning ITP, present on admission. Active. -per phone consultation with Hematology she will be continued on prednisone 40 mg a day, Aminocaproic Acid and Avatrombopag -matched platelets 6 pack transfuse -follow serial platelet levels -control blood pressure to decrease intracranial hemorrhage risk - Hypertension, present on admission. Active -continue lisinopril and metoprolol -control blood pressure closely to decrease risk of intracranial hemorrhage. Chronic Steroid Use, present on admission. Active -she reports that her usual daily prednisone dose is 5 mg, recently increased to 10 mg and currently on 40 mg. Osteoporosis, present on admission. Chronic -continue vitamin-D and calcium. Right lower extremity cellulitis, leg also -continue cephalexin Full Code status -She would prefer to be DNR but ultimately decides that she needs to try to be around to take care of her . Anxiety, present on admission. Chronic -Continue HS Lorazepam home dose
[2020-02-27] MEDS: cephALEXin 250 MG/5 ML SUSP PO ×3 (15:15→21:56)
[2020-02-27 15:50] VITALS: BP 128/88; PULSE 78; RESP 17; TEMP 36.2; O2SAT 97
--- NOTE | 2020-02-27 18:08 | PC.NURSE ---
Addendum entered by Pily Salinas R.N. 02/27/20 23:30: Tele dc'd as per Dr. Sullivan. Pt denies any vaginal or rectal bleeding this shift. No concerns or complaints verbalized. States doesn't feel can tolerate calf scd's as ordered, but agrees to try BL foot pumps. 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 Original Note: Pt reports discomfort to right forearm iv site @ beginning of shift. Able to flush with saline, but pt reports painful when doing so. Pt also states swelling noted along arm with iv in place. IV was discontinued and made aware. Per Dr. Sullivan, prefers pt to have iv in the event pt should need blood or begin to bleed. This was discussed with pt in detail and pt refuses iv start. Dr. Sullivan informed. Reports abdominal cramping, but refuses any meds to treat such. 1700 meds not given as had these meds @ 1515. Pt agrees to accept @ 1900.
[2020-02-27 21:31] VITALS: BP 123/58; PULSE 73; RESP 16; TEMP 36.6; O2SAT 96
[2020-02-27] MEDS: SENNOSIDES 8.6 MG TABLET 17.2 MG PO (21:54)
[2020-02-27] MEDS: LORazepam 0.5 MG TABLET PO (21:55)
[2020-02-27] MEDS: polyethylene glycoL 3350 17 GM POWD.PACK PO (21:56)
[2020-02-27 23:56] VITALS: BP 134/83; PULSE 71; RESP 16; TEMP 36.5; O2SAT 98
[2020-02-28 05:34] LABS: Add Manual Diff / Slide Review NO; Basophils Absolute Auto 100 /uL (0-100); Basophils Percent Auto 0.8 % (0-2); Eosinophils Absolute Auto 200 /uL (0-450); Eosinophils Percent Auto 1.6 % (2-4); Hematocrit 25.8 % (36-46); Hemoglobin 8.6 g/dL (12.0-16.0); Lymphocytes Absolute Auto 2800 /uL (1100-4500); Lymphocytes Percent Auto 23.2 % (25-40); Mean Corpuscular HGB Conc 33.3 % (30-36); Mean Corpuscular Volume 89.9 fL (80-100); Monocytes Absolute Auto 1100 /uL (0-900); Monocytes Percent Auto 9.2 % (3-14); Neutrophils Absolute Auto 7900 /uL (1500-7000); Neutrophils Percent Auto 65.2 % (50-75); Platelet Count 61 X10^3/uL (150-400); Red Blood Cell Count 2.86 X10^6/uL (4.0-5.2); Red Cell Distribution Width 15.5 % (11.6-14.8)
[2020-02-28 06:00] VITALS: BP 133/81; PULSE 69; RESP 16; TEMP 36.2; O2SAT 97
--- NOTE | 2020-02-28 07:01 | P.DS_ITS ---
History of Present Illness History of Present Illness Date Patient Seen: 02/28/20 Chief complaint: has ITP bleeding rectally Narrative: This is a 79-year-old female with a history of ITP since 2006 who presents with platelets of 2000 and melena last night. She has also had some epistaxis. After initial evaluation and discussion with Hematology a matched 6 pack of platelets has been ordered along with a dose of IVIG and continuation of her ITP medication - Avatrombopag. She has not had GI bleeding before. Her condition has been managed by her [facility] academic advising director Dr. Smith and Dr. Bill locally. Her initial hemoglobin this morning at 6:00 a.m. is 10.0. There has been no evident bleeding since although the patient does report a sense of bloating. She has had no signs of any other contributing illness including no chest pain, shortness of breath, vomiting, nausea, dysuria, fevers, chills, sweats, rashes. The petechia has been quite severe over the last week as result of the known thrombocytopenia. Her platelets have been in the 9389-6167 range. She has been seeing Hematology daily. There was some hesitation to give the IVIG because the last time that was given in conjunction with the Avatrombopag her platelets reached 641,000 on 01/31 and 1,026,000 on 02/13. She has also recently been started on Amicar. She says that she would like to be DNR but indicates that she does want to be full code in the context of ?who would take care of my ?? 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 Discharge Providers Provider Date of admission: 02/26/20 08:53 Discharge Date: 02/28/20 Primary care physician: Henny Dinh PA-C Consults: 02/26/20 10:37 Consult to Dietitian, Adult Routine Comment: Reason For Exam: weight loss Discharge provider: Smiley Sullivan MD Summary Hospital Course Discharge Diagnosis: 1. Idiopathic thrombocytopenia, present on admission 2. Status post transfusion of a 6 pack of platelets and and IVIG 3. Rectal bleeding, resolved 4. Left lower extremity cellulitis 5. Hypertension 6. Acute blood loss anemia, transfusion not required patient a drop of her hemoglobin from 11 g to 8.6 g Hospital Course: Patient is a 79-year-old female who was admitted to the hospital with known idiopathic thrombocytopenia. The patient presented with a platelet count of 2000. She had epistaxis and rectal bleeding. Patient had passed to maroon-colored stools at home. She was anemic but did not require transfusion. The patient was admitted to the hospital for evaluation. She received 6 pack of platelets, IVIG in the emergency room, and was started on prednisone 40 mg per day. The patient had 1 additional episode of rectal bleeding. It however her hemoglobin and hematocrit remained stable. She continues to have gas from below but no additional bleeding. She describes some crampy abdominal pain but again no bleeding or nausea or vomiting. Patient is hemodynamically stable and deemed appropriate for discharge home. Status at Discharge Cognitive/behavioral status at discharge: oriented Functional status at discharge: independent ambulation Overall status at discharge: patient is back to baseline Time Spent with Patient Time spent: Less than 30 minutes Exam Vital Signs (past 8 hours): - 02/27/20 23:56 02/28/20 06:00 Temperature 97.7 F 97.2 F L Pulse Rate 71 69 Respiratory Rate 16 16 Blood Pressure 134/83 133/81 Pulse Oximetry 98 97 Oxygen Delivery Method Room Air Oxygen Flow Rate 0 Narrative Exam Narrative: Pleasant female in no obvious distress Lungs: Clear to auscultation Cardiac exam: Regular rate and rhythm normal S1-S2 with a 2/6 systolic ejection murmur Abdomen: Soft and nontender Extremities: Pola hose in place Objective Labs Result Diagrams: 02/28/20 05:10 02/27/20 05:15 Labs: Laboratory Results - last 24 hr 02/28/20 05:10 WBC 12.0 H RBC 2.86 L Hgb 8.6 L Hct 25.8 L MCV 89.9 MCH 30.0 MCHC 33.3 RDW 15.5 H Plt Count 61 L Neut % (Auto) 65.2 Lymph % (Auto) 23.2 L [place] % (Auto) 9.2 Eos % (Auto) 1.6 L Baso % (Auto) 0.8 Neut # (Auto) 7900 H Lymph # (Auto) 2800 [place] # (Auto) 1100 H Eos # (Auto) 200 Baso # (Auto) 100 PFSH Medical History Anxiety Atrial flutter Chronic steroid use History of ITP Hypertension Microscopic hematuria Osteoporosis Scoliosis Surgical History History of splenectomy History of tonsillectomy Status post hysterectomy Family History (Updated 02/26/20 @ 13:44 by Geoffrey Prakash MD) Father Cancer Mother Bleeding disorder Brother Brain cancer Social History marital status: household members: spouse lives independently: Yes Smoking Status: Never smoker alcohol intake: current Discharge Assessment & Plan Assessment and Plan Assessment: Idiopathic thrombocytopenia purpura Acute blood loss anemia Rectal bleed Cellulitis Plan of Treatment: Medications as prescribed Follow-up with oncology next week Discharge Plan Discharge Plan Patient Disposition: Home Discharge orders & Medications Prescriptions: New prednisone 20 mg Tablet 40 mg PO DAILY Qty: 30 RF: 0 Continued metoprolol succinate [Toprol XL] 25 MG tablet extended release 24 hr 12.5 mg PO QDAY Qty: 0 RF: 0 polyethylene glycol 3350 [Miralax] 17 GM powder in packet 17 gm PO BEDTIME PRN (Reason: Constipation) Qty: 0 RF: 0 multivitamin Tablet 1 tab PO DAILY RF: 0 ascorbic acid (vitamin C) [Vitamin C] 500 mg Tablet 500 mg DAILY RF: 0 vitamin B complex Tablet 1 tab PO DAILY RF: 0 Elderberry 200 mg Capsule 200 mg PO DAILY RF: 0 cholecalciferol (vitamin D3) [Vitamin D3] 50 mcg (2,000 unit) Capsule 50 mcg PO DAILY RF: 0 Doptelet (10 tab pack) 20 mg Tablet 20 mg BID RF: 0 aminocaproic acid 500 mg Tablet 1 g PO QID 20 Days Qty: 160 RF: 0 cephalexin 250 mg/5 mL suspension for reconstitution 500 mg PO BID RF: 0 lorazepam 0.5 mg tablet 0.5 mg PO BEDTIME RF: 0 lisinopril 10 mg tablet 10 mg PO QAM RF: 0 Discontinued prednisone 10 mg tablet 40 mg PO QAM RF: 0 Follow up/Referrals: Henny Dinh PA-C [Primary Care Provider] - Discharge Health Status Multidrug resistant organism: No MDRO Diet/Activity/Treatments Diet: Low-sodium and Low-cholesterol Discharge Data Primary Care Provider: Henny Dinh
[2020-02-28 07:06] VITALS: BP 127/67; PULSE 70; RESP 14; TEMP 36.4; O2SAT 100
--- NOTE | 2020-02-28 07:57 | CM.DPC ---
DCP Discharge Home Per MD, pt is medically stable to d/c home today and no identified barriers to discharge. Pt's bleed has resolved and pt back to her independent baseline, no identified concerns. Plan: Patient to d/c home via spouse POV later today and no SW needs at this time. REYMUNDO [place]
[2020-02-28] MEDS: CALCIUM CARBONATE 600 MG TABLET PO (10:04)
[2020-02-28] MEDS: ASCORBIC ACID 500 MG TABLET PO (10:04)
[2020-02-28] MEDS: CHOLECALCIFEROL (VITAMIN D3) 1,000 UNIT TABLET 2000 UNIT PO (10:05)
[2020-02-28] MEDS: MULTIVITAMIN 1 TABLET 1 TAB PO (10:05)
[2020-02-28] MEDS: cephALEXin 250 MG/5 ML SUSP PO (10:06)
[2020-02-28] MEDS: VITAMIN B COMPLEX 1 CAPSULE 1 CAP PO (10:07)
[2020-02-28] MEDS: predniSONE 20 MG TABLET 40 MG PO (10:07)
[2020-02-28] MEDS: METOPROLOL ER 25 MG TABLET 12.5 MG PO (10:11)
[2020-02-28] MEDS: lisinopriL 10 MG TABLET PO (10:14)
--- NOTE | 2020-02-28 12:59 | PC.NURSE ---
Discharge instructions reviewed with patient. She states she has made an appointment with [facility] as well as her PCP for tomorrow. She is aware that she will be getting her labs drawn tomorrow to re check platelets. Patient escorted out via wheelchair with all her belongings.
== END 2020-02-28 12:30 | disposition home or self-care (01) | DRG 813 ==
LOC: ED 06:45 → AC 08:53
PROVIDERS: Family Medicine; Admitting Provider Internal Medicine; Emergency Provider Emergency Medicine; PCP Physician Assistant; Referring Provider Emergency Medicine; Visit Provider Internal Medicine
DX: D69.3 Immune thrombocytopenic purpura (principal); K92.1 Melena; D62 Acute posthemorrhagic anemia; L03.116 Cellulitis of left lower limb; I48.92 Unspecified atrial flutter; R04.0 Epistaxis; F41.9 Anxiety disorder, unspecified; Z79.52 Long term (current) use of systemic steroids; Z20.822 Contact with and (suspected) exposure to COVID-19; I10 Essential (primary) hypertension; M81.0 Age-related osteoporosis without current pathological fracture
CPT/HCPCS: 36415; 36430; 80053; 85025; 85610; 85730; 86850; 86900; 86901; 87635; 96365; 96375; 96413; 96415; 99281; 99284; C9803; P9016; C9113; J1200; J1561; P9035

== ENCOUNTER → 2020-03-03 11:01 | Outpatient (CLI) | payer MEDICARE, OTHER, SELFPAY ==
[2020-02-26 10:04] VITALS: BMI 21.1
--- NOTE | 2020-03-03 11:02 | DI.CT.S_ITS ---
PROCEDURE: CT CHEST ABD PEL WO CON INDICATIONS: Abdominal pain, GI bleed, looking for source TECHNIQUE: After the administration of oral contrast, 5 mm thick sections acquired from the lung apices to the symphysis pubis. 5 mm thick coronal and sagittal reformats acquired, with additional 7 mm coronal MIP reformats through the lungs. For radiation dose reduction, the following was used: automated exposure control, adjustment of mA and/or kV according to patient size. COMPARISON: None. FINDINGS: Image quality: Diminished by absence of intravenous contrast.. CHEST: Lungs and pleura: No acute pulmonary opacities. No pleural effusions or pneumothorax. Central and peripheral airways are patent are normal in caliber. Mediastinum: Heart size is normal. No pericardial effusion. No mediastinal adenopathy by CT size criteria. Thoracic aorta and central pulmonary arteries are normal in size. Esophagus is normal in caliber. No hiatal hernia. Chest wall: No axillary or supraclavicular adenopathy by size criteria. Thyroid gland is not well seen by this noncontrast technique . ABDOMEN: Solid organs: Liver is normal in size. Gallbladder appears normal . Pancreas is normal in contours. Appears normal hydronephrosis or nephrolithiasis. Peritoneum and bowel: Small and large bowel loops are normal in caliber and wall thickness. No free fluid or air. Nodes and vessels: No retroperitoneal or mesenteric adenopathy by size criteria. Aorta and inferior vena cava are normal in size. Miscellaneous: No ventral hernias. PELVIS: Genitourinary: Bladder wall thickness is normal. Miscellaneous: No inguinal hernias or adenopathy. Bones: No suspicious bony lesions. No vertebral body compression fractures. IMPRESSION: Quality of visualization is limited by the absence of intravenous contrast. No evidence of infection or neoplasm is found. Source of reported GI bleeding is not identified. Dictated by: Bismark Lee M.D. on 03/03/2020 at 14:11 Approved by: Bismark Lee M.D. on 03/03/2020 at 14:14
== END ==
PROVIDERS: PCP Physician Assistant; Referring Provider Physician Assistant; Visit Provider Internal Medicine
DX: K92.2 Gastrointestinal hemorrhage, unspecified (principal); R10.9 Unspecified abdominal pain; Z86.2 Personal history of diseases of the blood and blood-forming organs and certain disorders involving the immune mechanism; D69.3 Immune thrombocytopenic purpura
CPT/HCPCS: 36415; 71250; 74176; 85025

== ENCOUNTER → 2020-03-11 07:31 | Outpatient (CLI) | payer MEDICARE, OTHER, SELFPAY ==
[2020-02-26 10:04] VITALS: BMI 21.1
[2020-03-11 09:21] LABS: Add Manual Diff / Slide Review NO; Basophils Percent Auto 1.9 % (0-2); Eosinophils Percent Auto 1.8 % (2-4); Hematocrit 29.4 % (36-46); Hemoglobin 9.5 g/dL (12.0-16.0); Lymphocytes Percent Auto 20.6 % (25-40); Mean Corpuscular HGB Conc 32.4 % (30-36); Mean Corpuscular Hemoglobin 29.8 PG (26-34); Monocytes Percent Auto 7.5 % (3-14); Neutrophils Percent Auto 68.2 % (50-75); Platelet Count 837 X10^3/uL (150-400); Red Cell Distribution Width 16.6 % (11.6-14.8); White Blood Cell Count 15.1 X10^3/uL (4.5-11.0)
[2020-03-11 09:22] LABS: Basophils Absolute Auto 300 /uL (0-100); Eosinophils Absolute Auto 300 /uL (0-450); Lymphocytes Absolute Auto 3100 /uL (1100-4500); Monocytes Absolute Auto 1100 /uL (0-900)
[2020-03-11 09:50] LABS: Neutrophils Absolute Auto 10300 /uL (1500-7000)
[2020-03-11 10:22] LABS: Platelet Estimate Increased on smear; RBC Morphology Y
[2020-03-11 10:23] LABS: Acanthocytes 1+; Polychromasia 1+
== END ==
PROVIDERS: PCP Physician Assistant; Referring Provider Internal Medicine; Visit Provider Internal Medicine
DX: Z86.2 Personal history of diseases of the blood and blood-forming organs and certain disorders involving the immune mechanism (principal); D69.6 Thrombocytopenia, unspecified
CPT/HCPCS: 36415; 85025

== ENCOUNTER 2020-04-21 10:00 | Emergency (ER) | payer MEDICARE, OTHER, SELFPAY ==
[2020-02-26 10:04] VITALS: BMI 21.1
[2020-04-21] VITALS (7 sets, daily range): BP systolic 122–197; BP diastolic 63–97; PULSE 18–71; RESP 16–18; TEMP 36.2; O2SAT 95–99
--- NOTE | 2020-04-21 10:33 | ED.RECABL ---
HPI - Recheck/Abnormal Lab/Rx General Chief Complaint: Recheck/Abnormal Lab/Rx Stated Complaint: Sent Over By her Dr, platelet count is VERY low Time Seen by Provider: 04/21/20 10:16 Source: patient Mode of arrival: Ambulatory Limitations: no limitations History of Present Illness HPI narrative: This is a 79-year-old female comes to the emergency department with complaint of low platelets. She is sent by her hematology oncology office today. Patient has known ITP. Her medications have been adjusted recently she was low, became very elevated her platelets and has since dropped precipitously to 13 today. Patient did note that she has felt more fatigued, she noted a small blood blister on her lip and she had some bleeding from her left skinner yesterday. She has not appreciated any headaches. No chest pain or shortness of breath. She has a history of atrial flutter but is not appreciating any symptoms currently. She is not anticoagulated anyway. No nausea, no vomiting. She has not appreciated any melena, hematochezia or hematuria. Patient was sent by her oncologist today who I spoke to. He recommends increasing her prednisone to 40 mg daily and IV IG at 20 grams which is lower than her last dose because they over shot her platelet count last time. Related Data Home Medications Medication Instructions Recorded Confirmed metoprolol succinate [Toprol XL] 12.5 mg PO QDAY #0 10/12/11 04/05/20 polyethylene glycol 3350 [Miralax] 17 gm PO BEDTIME PRN #0 05/26/17 04/05/20 lisinopril 10 mg PO QAM 12/20/19 04/05/20 lorazepam 0.5 mg PO BEDTIME 12/20/19 04/05/20 ascorbic acid (vitamin C) [Vitamin 500 mg DAILY 02/08/20 04/05/20 C] cholecalciferol (vitamin D3) 50 mcg PO DAILY 02/08/20 04/05/20 [Vitamin D3] elderberry fruit 200 mg PO DAILY 02/08/20 04/05/20 multivitamin 1 tab PO DAILY 02/08/20 04/05/20 vitamin B complex 1 tab PO DAILY 02/08/20 04/05/20 prednisone 5 mg PO DAILY 03/15/20 04/05/20 ascorbic acid (vitamin C) [Vitamin 1,000 mg PO DAILY 04/05/20 04/05/20 C] biotin 5 mg PO DAILY 04/05/20 04/05/20 vitamin A97-ounif acid 1 tab PO DAILY 04/05/20 04/05/20 Previous Rx's Medication Instructions Recorded avatrombopag [Doptelet (10 tab 20 mg PO DAILY #14 tab 02/28/20 pack)] conjugated estrogens 0.625 mg/gram 0.625 mg VAGINAL 2XW #30 g 03/14/20 vaginal cream Allergies Allergy/AdvReac Type Severity Reaction Status Date / Time latex Allergy Mild LOCAL RASH Verified 04/21/20 10:30 Penicillins Allergy Mild CHILDHOOD Verified 04/21/20 10:30 Sulfa (Sulfonamide Allergy Mild SOMETHING Verified 04/21/20 10:30 Antibiotics) TO DO WITH BLADDER OR KIDNEY'S?? iodine AdvReac Intermediate RAPID Verified 04/21/20 10:30 HEART RATE (IV CONTRAST) Review of Systems Review of Systems ROS Unobtainable: All systems reviewed & are unremarkable except as noted in HPI and below Patient History Medical History (Updated 04/21/20 @ 11:08 by Amara Royal DO) Anxiety Atrial flutter Chronic steroid use History of ITP Hypertension Microscopic hematuria Osteoporosis Scoliosis Surgical History History of splenectomy History of tonsillectomy Status post hysterectomy Family History Father Cancer Mother Bleeding disorder Brother Brain cancer Social History marital status: household members: spouse lives independently: Yes Smoking Status: Never smoker alcohol intake: current Smoking Status: Never smoker alcohol intake frequency: 0-2 drinks per day Substance Use Type: does not use Exam Narrative Exam Narrative: GEN: Well-appearing thin female, alert and oriented x 3, patient appears to be in mild distress. HEENT: Atraumatic, pupils are equal round reactive to light, extraocular movements are intact, nares are clear, TMs are clear with no fluid, there is no conjunctival pallor. Throat is clear without any exudates, erythema, tonsillar enlargement or uvular deviation, patient does have a blood blister that is 0.25 cm on her lower inner lip HEART: Regular rate and rhythm without murmur, clicks, rubs. LUNGS:Lungs clear to auscultation, no wheezes, rales, crackles, chest moves symmetrically ABD:bowel sounds normal, soft, non-tender, no guarding, rebound, rigidity, no masses noted, no hepatosplenomegaly :No CVA tenderness MSCL: Patient has a small bruise that is 1 cm on her left forearm, she has chronic venous stasis changes bilateral lower extremities which are chronically tender, it is noted that she has some dried blood on her anterior skinner, full range of motion, normal gait NEURO:CN 2-12 intact, sensation normal SKIN: No petechiae noted. No rash. See above for ecchymotic changes. Initial Vital Signs Initial Vital Signs: Vital Signs Temperature 97.2 F L 04/21/20 10:00 Pulse Rate 69 04/21/20 10:00 Respiratory Rate 16 04/21/20 10:00 Blood Pressure 197/97 H 04/21/20 10:00 Pulse Oximetry 99 04/21/20 10:00 Course Orders Ordered: ED Orders 04/21/20 10:11 Complete Blood Count AUTO DIFF Stat Comprehensive Metabolic Panel Stat Lipase Stat Partial Thromboplastin Time Stat Prothrombin Time INR Stat Type and Screen Stat 04/21/20 11:02 CT head/brain wo con Stat 04/21/20 11:15 Urine Microscopic Stat Discontinued Medications Acetaminophen (Acetaminophen 325 Mg Tablet) 650 mg PO NOW ONE Stop: 04/21/20 13:02 Last Admin: 04/21/20 13:12 Dose: 650 mg Documented by: DEYSI Diphenhydramine HCl (Diphenhydramine 25 Mg Tablet) 25 mg PO NOW ONE Stop: 04/21/20 13:02 Last Admin: 04/21/20 13:12 Dose: 25 mg Documented by: DEYSI Immune Globulin 20 gm/ (Miscellaneous) 200 mls @ 0 mls/hr IV NOW ONE Stop: 04/21/20 11:01 Last Infusion: 04/21/20 15:11 Dose: 0 mls/hr Documented by: Infusion: 04/21/20 13:57 Dose: 120 mls/hr Documented by: Infusion: 04/21/20 13:19 Dose: 66 mls/hr Documented by: Admin: 04/21/20 12:25 Dose: 33 mls/hr Documented by: DEYSI Reevaluation(s) Reevaluation #2: Discussed today's findings as well as patient's oncologist recommendations. We did discuss if she wish to be observed, she does not she is aware of the risks. We discussed strict return precautions if she has any new headaches, any signs of bleeding or other new concerning symptoms. She has her own prednisone at home, she also has Amicar available to herself and has a standing order at the lab for repeat testing. Time: 15:55 Consultations Consultation #1: Dr. Bill-discussed patient's findings today. Repeat platelets were 6. He recommended increasing her daily prednisone to 40 mg. IV IG 20 g and patient is to restart her Amicar 1 g t.i.d.. He asked that she follow up on Friday for recheck of her platelets. We discussed if it would be appropriate to be admitted, he did not feel was necessary unless patient was having active bleeding. Patient does have his cell phone number can call any time with questions. Also recommended patient have low threshold to return and if she develops any active bleeding to return to the department. Time: 14:11 Vital Signs Vital signs: Vital Signs - 8 hr 04/21/20 10:00 04/21/20 12:17 04/21/20 13:13 Temperature 97.2 F L Pulse Rate 69 66 71 Respiratory Rate 16 16 Blood Pressure 197/97 H 166/79 H Pulse Oximetry 99 96 95 04/21/20 13:14 04/21/20 13:30 04/21/20 15:27 Temperature Pulse Rate 70 63 69 Respiratory Rate 16 Blood Pressure 146/78 H 148/82 H 133/63 Pulse Oximetry 98 97 96 04/21/20 16:08 Temperature Pulse Rate 18 L Respiratory Rate 18 Blood Pressure 122/78 Pulse Oximetry 99 MDM - Recheck/Abnormal Lab/Rx Lab Data Attestation: I reviewed the patient's lab results. Result diagrams: 04/21/20 10:11 04/21/20 10:11 Labs: Lab Results 04/21/20 04/21/20 04/21/20 Range/Units 10:11 10:11 10:11 WBC 11.7 H (4.5-11.0) X10^3/uL RBC 4.22 (4.0-5.2) X10^6/uL Hgb 13.1 (12.0-16.0) g/dL Hct 39.5 (36-46) % MCV 93.6 (80-100) fL MCH 31.0 (26-34) PG MCHC 33.2 (30-36) % RDW 17.4 H (11.6-14.8) % Plt Count 6 L* (150-400) X10^3/uL Neut % (Auto) 53.1 (50-75) % Lymph % (Auto) 32.5 (25-40) % [place] % (Auto) 8.4 (3-14) % Eos % (Auto) 3.7 (2-4) % Baso % (Auto) 2.3 H (0-2) % Neut # (Auto) 6200 (3958-8162) /uL Lymph # (Auto) 3800 (7309-2521) /uL [place] # (Auto) 1000 H (0-900) /uL Eos # (Auto) 400 (0-450) /uL Baso # (Auto) 300 H (0-100) /uL Platelet Estimate Decreased on smear RBC Morphology See below Anisocytosis 1+ H Acanthocytes (Spur) 1+ H PT 10.3 (10.1-12.7) SECONDS INR 0.9 (0.9-1.3) APTT 31 (26.4-36.2) SECONDS Sodium 135 L (137-145) mmol/L Potassium 4.0 (3.4-5.1) mmol/L Chloride 102 (98-107) mmol/L Carbon Dioxide 27 (22-32) mmol/L BUN 18 H (7-17) mg/dL Creatinine 0.79 (0.52-1.04) mg/dL Estimated GFR > 60.0 (>60) mL/min BUN/Creatinine Ratio 22.8 H (6-22) Glucose 91 (80-110) mg/dL Calcium 9.7 (8.4-10.2) mg/dL Total Bilirubin 0.3 (0.2-1.3) mg/dL AST 24 (14-36) IU/L ALT 16 (<35) IU/L Alkaline Phosphatase 62 (38-126) U/L Total Protein 7.3 (6.3-8.2) g/dL Albumin 4.4 (3.5-5.0) g/dL Globulin 2.9 (1.7-4.1) g/dL Albumin/Globulin Ratio 1.5 (1.0-2.8) Lipase 103 (23-300) U/L Urine RBC (0-5/HPF) Urine WBC (0-5/HPF) Urine Bacteria (None) Ur Culture Indicated? Blood Type Antibody Screen 04/21/20 04/21/20 Range/Units 10:11 11:15 WBC (4.5-11.0) X10^3/uL RBC (4.0-5.2) X10^6/uL Hgb (12.0-16.0) g/dL Hct (36-46) % MCV (80-100) fL MCH (26-34) PG MCHC (30-36) % RDW (11.6-14.8) % Plt Count (150-400) X10^3/uL Neut % (Auto) (50-75) % Lymph % (Auto) (25-40) % [place] % (Auto) (3-14) % Eos % (Auto) (2-4) % Baso % (Auto) (0-2) % Neut # (Auto) (2242-5643) /uL Lymph # (Auto) (6683-7700) /uL [place] # (Auto) (0-900) /uL Eos # (Auto) (0-450) /uL Baso # (Auto) (0-100) /uL Platelet Estimate RBC Morphology Anisocytosis Acanthocytes (Spur) PT (10.1-12.7) SECONDS INR (0.9-1.3) APTT (26.4-36.2) SECONDS Sodium (137-145) mmol/L Potassium (3.4-5.1) mmol/L Chloride (98-107) mmol/L Carbon Dioxide (22-32) mmol/L BUN (7-17) mg/dL Creatinine (0.52-1.04) mg/dL Estimated GFR (>60) mL/min BUN/Creatinine Ratio (6-22) Glucose (80-110) mg/dL Calcium (8.4-10.2) mg/dL Total Bilirubin (0.2-1.3) mg/dL AST (14-36) IU/L ALT (<35) IU/L Alkaline Phosphatase (38-126) U/L Total Protein (6.3-8.2) g/dL Albumin (3.5-5.0) g/dL Globulin (1.7-4.1) g/dL Albumin/Globulin Ratio (1.0-2.8) Lipase (23-300) U/L Urine RBC 1-5/hpf (0-5/HPF) Urine WBC None seen (0-5/HPF) Urine Bacteria None seen (None) Ur Culture Indicated? Cult not indicated Blood Type O Negative Antibody Screen Negative Urine Dip Bedside Urine Glucose Negative Bedside Urine Bilirubin - Negative Bedside Urine Ketone - Negative Urine Specific [place] 1.010 Bedside Urine Occult Blood + Bedside Urine pH 6.5 Bedside Urine Protein - Negative Bedside Urine Urobilinogen - Negative Bedside Urine Nitrite - Negative Bedside Urine Leukocytes - Negative Esterase Imaging Data CT scan - head: Radiologist's Impression: [address] [id number] Scan ReportSigned Patient: Priscilla Mahan LMR#: [id number]: [id number]/Sex: 79 / FDate of Service: 04/21/20Loc: EDAccession Number: [id number] Procedure: CT head/brain wo con Ordering Provider: Amara Royal D.O. PROCEDURE: CT HEAD/BRAIN WO CON INDICATIONS: platelets are 6, weakness TECHNIQUE: Noncontrast 4.5 mm thick angled axial sections acquired from the foramen magnum to the vertex, with coronal and sagittal reformats. For radiation dose reduction, the following was used: automated exposure control, adjustment of mA and/or kV according to patient size. COMPARISON: [facility], CT, HEAD WITHOUT CONTRAST, 10/12/2011, 10:52. [facility], CT, HEAD WITHOUT CONTRAST, 09/20/2007, 14:59. FINDINGS: Image quality: Excellent. CSF spaces: Basal cisterns are patent. No extra-axial fluid collections. The ventricles are symmetric in size and shape. Brain: No intracranial bleeds or masses. There is cerebral volume loss for age, with resultant ventricular and sulcal prominence. There are periventricular and deep white matter chronic small vessel ischemic changes. There is intracranial internal carotid artery atherosclerosis. Skull and face: Calvarium and visualized facial bones appear intact, without suspicious lesions. Sinuses: Visualized sinuses and mastoids are clear. IMPRESSION: No stroke, mass or hemorrhage is seen. Mild age-related microvascular atherosclerotic change is present in the deep white matter of each hemisphere. Stable appearance of skull base arterial vasculature. Dictated by: Bismark Lee M.D. on 04/21/2020 at 10:33 Approved by: Bismark Lee M.D. on 04/21/2020 at 10:39 [facility] Narrative Medical decision making narrative: This is a 79-year-old female who is sent by her oncologist for very low platelet count. Patient has known ITP. She has had lows before and when they adjusted her medications have actually caused her to have very elevated platelets up into the million range. Dr. Bill is her oncologist and recommends IV IG 20 g as well as changing her prednisone to 40 mg daily and patient to be start her Amicar. Here platelets are 6, patient's hemoglobin is stable. She does not have any active bleeding that is appreciated although there is some hematuria on labs. Head CT is negative and patient is asymptomatic at this time for any additional bleeding. Re-contacted patient's oncologist review her labs today and updated him on patient's course. Continue plan for patient have her labs rechecked on Friday. He fell expect her platelets to continue to drop over the weekend likely closer to 2. He does not feel she needs to be admitted at this time. Patient is aware and she also does not feel she needs to be admitted but is aware that she is high risk for spontaneous bleeding including intracranially. We discussed strict return precautions patient is to have a low threshold to return which she expresses. She does live with her . She also has her oncologist cell phone number and states that he is easily reached on the weekends when needed. Discharge Plan Departure Patient Disposition: Home Clinical Impression: Acute ITP Instructions: DI for Immune Thrombocytopenic Purpura Activity Restrictions/Additional Instructions: Follow up Friday with Dr. Bill. Also have your labs redrawn on Friday. Your platelets are quite low today, Dr. Bill does not expect them to improve until after Friday. Continue prednisone 40mg daily until you follow up with Dr. Bill and discuss dose change. Restart your Amicar at 1gram every 8 hours. Have a low threshold to return for recheck. Return to the ER for fevers greater 100.4 F, any new bleeding, increasing bruising, headaches, vision changes, passing out, chest pain or shortness of breath, vomiting, black or bloody stools, vaginal bleeding or blood in your urine. Prescriptions: No Action metoprolol succinate [Toprol XL] 25 MG tablet extended release 24 hr 12.5 mg PO QDAY Qty: 0 RF: 0 polyethylene glycol 3350 [Miralax] 17 GM powder in packet 17 gm PO BEDTIME PRN (Reason: Constipation) Qty: 0 RF: 0 conjugated estrogens 0.625 mg/gram cream 0.625 mg vaginal 2XW Qty: 30 RF: 3 multivitamin Tablet 1 tab PO DAILY RF: 0 ascorbic acid (vitamin C) [Vitamin C] 500 mg Tablet 500 mg DAILY RF: 0 vitamin B complex Tablet 1 tab PO DAILY RF: 0 elderberry fruit 200 mg Capsule 200 mg PO DAILY RF: 0 cholecalciferol (vitamin D3) [Vitamin D3] 50 mcg (2,000 unit) Capsule 50 mcg PO DAILY RF: 0 prednisone 20 mg tablet 5 mg PO DAILY RF: 0 ascorbic acid (vitamin C) [Vitamin C] 1,000 mg Tablet 1,000 mg PO DAILY RF: 0 biotin 5 mg Capsule 5 mg PO DAILY RF: 0 vitamin I22-prszv acid 0.5-1 mg Tablet 1 tab PO DAILY RF: 0 Doptelet (10 tab pack) 20 mg tablet 20 mg PO DAILY Qty: 14 RF: 0 lorazepam 0.5 mg tablet 0.5 mg PO BEDTIME RF: 0 lisinopril 10 mg tablet 10 mg PO QAM RF: 0 Referrals: Henny Dinh PA-C [Primary Care Provider] - James Bill MD [Physician] -
[2020-04-21 10:37] LABS: Basophils Absolute Auto 300 /uL (0-100); Basophils Percent Auto 2.3 % (0-2); Eosinophils Absolute Auto 400 /uL (0-450); Eosinophils Percent Auto 3.7 % (2-4); Hematocrit 39.5 % (36-46); Hemoglobin 13.1 g/dL (12.0-16.0); INR 0.9 (0.9-1.3); Lymphocytes Absolute Auto 3800 /uL (1100-4500); Lymphocytes Percent Auto 32.5 % (25-40); Mean Corpuscular HGB Conc 33.2 % (30-36); Mean Corpuscular Volume 93.6 fL (80-100); Monocytes Absolute Auto 1000 /uL (0-900); Monocytes Percent Auto 8.4 % (3-14); Neutrophils Absolute Auto 6200 /uL (1500-7000); Neutrophils Percent Auto 53.1 % (50-75); Prothrombin Time 10.3 SECONDS (10.1-12.7); Red Blood Cell Count 4.22 X10^6/uL (4.0-5.2); Red Cell Distribution Width 17.4 % (11.6-14.8); White Blood Cell Count 11.7 X10^3/uL (4.5-11.0)
[2020-04-21 10:40] LABS: Add Manual Diff / Slide Review SLIDE REVIEW; Alanine Aminotransferase 16 IU/L (<35); Albumin 4.4 g/dL (3.5-5.0); Albumin Globulin Ratio 1.5 (1.0-2.8); Alkaline Phosphatase 62 U/L (38-126); Aspartate Aminotransferase 24 IU/L (14-36); BUN Creatinine Ratio 22.8 (6-22); Bilirubin Total 0.3 mg/dL (0.2-1.3); Blood Urea Nitrogen 18 mg/dL (7-17); Calcium 9.7 mg/dL (8.4-10.2); Carbon Dioxide 27 mmol/L (22-32); Chloride 102 mmol/L (98-107); Estimated Glomerular Filt Rate > 60.0 mL/min (>60); Globulin 2.9 g/dL (1.7-4.1); Glucose 91 mg/dL (80-110); HEMOLYSIS < 15 (0-50); Lipase 103 U/L (23-300); PTT Partial Thromboplastin Tim 31 SECONDS (26.4-36.2); Sodium 135 mmol/L (137-145); Total Protein 7.3 g/dL (6.3-8.2)
[2020-04-21 10:41] LABS: Platelet Count 6 X10^3/uL (150-400)
[2020-04-21 10:56] LABS: Acanthocytes 1+; Anisocytosis 1+; Platelet Estimate Decreased on smear
--- NOTE | 2020-04-21 11:02 | DI.CT.S_ITS ---
PROCEDURE: CT HEAD/BRAIN WO CON INDICATIONS: platelets are 6, weakness TECHNIQUE: Noncontrast 4.5 mm thick angled axial sections acquired from the foramen magnum to the vertex, with coronal and sagittal reformats. For radiation dose reduction, the following was used: automated exposure control, adjustment of mA and/or kV according to patient size. COMPARISON: [facility], CT, HEAD WITHOUT CONTRAST, 10/12/2011, 10:52. [facility], CT, HEAD WITHOUT CONTRAST, 09/20/2007, 14:59. FINDINGS: Image quality: Excellent. CSF spaces: Basal cisterns are patent. No extra-axial fluid collections. The ventricles are symmetric in size and shape. Brain: No intracranial bleeds or masses. There is cerebral volume loss for age, with resultant ventricular and sulcal prominence. There are periventricular and deep white matter chronic small vessel ischemic changes. There is intracranial internal carotid artery atherosclerosis. Skull and face: Calvarium and visualized facial bones appear intact, without suspicious lesions. Sinuses: Visualized sinuses and mastoids are clear. IMPRESSION: No stroke, mass or hemorrhage is seen. Mild age-related microvascular atherosclerotic change is present in the deep white matter of each hemisphere. Stable appearance of skull base arterial vasculature. Dictated by: Bismark Lee M.D. on 04/21/2020 at 10:33 Approved by: Bismark Lee M.D. on 04/21/2020 at 10:39
[2020-04-21 11:25] LABS: Bacteria Urine None Seen; WBC Urine None Seen (0-5/HPF)
[2020-04-21 11:37] LABS: Culture Indicated Urine Cult Not Indicated; RBC Urine 1-5/HPF (0-5/HPF)
[2020-04-21] MEDS: IMMUNE GLOBULIN IV (12:25)
[2020-04-21] MEDS: ISOOSMOTIC VEHICLE IV (12:25)
[2020-04-21] MEDS: ACETAMINOPHEN 325 MG TABLET 650 MG PO (13:12)
[2020-04-21] MEDS: diphenhydrAMINE 25 MG TABLET PO (13:12)
== END 2020-04-21 16:13 | disposition home or self-care (01) ==
PROVIDERS: Emergency Provider Emergency Medicine; PCP Physician Assistant
DX: D69.3 Immune thrombocytopenic purpura (principal)
CPT/HCPCS: 36415; 70450; 80053; 81003; 81015; 83690; 85007; 85025; 85610; 85730; 86850; 86900; 86901; 96365; 96366; 99283; 99284; J1561

== ENCOUNTER 2020-04-24 07:15 | Inpatient (IN) | payer MEDICARE, OTHER, SELFPAY ==
[2020-02-26 10:04] VITALS: BMI 21.1
[2020-04-24] VITALS (16 sets, daily range): BP systolic 109–185; BP diastolic 59–100; PULSE 53–74; RESP 16–18; TEMP 36.4–37; O2SAT 96–99; BMI 20.5
--- NOTE | 2020-04-24 07:25 | ED.WEAKNESS ---
HPI - Weakness General Chief complaint: Chest Pain Stated complaint: SPITTING UP BLOOD THIS MORNING Time Seen by Provider: 04/24/20 07:18 Source: patient Mode of arrival: Ambulatory Limitations: no limitations History of Present Illness HPI Narrative: Patient is a 79-year-old female with history of idiopathic ITP is presenting with generalized weakness and spitting up blood. He then she noticed this morning is she tasted blood in her mouth while lying down in spit up 1 time. Was not a large amount but is abnormal for her. As well 3 days ago her platelets were 6 she received a half a dose of IV IgG is but continued to feel weak during the weekend. She says she overall just does not feel well dizzy and lightheaded at times. Seen evaluated in the emergency department 3 days prior, at that time Hematology-Oncology was consulted it was recommended is increasing her prednisone to 40 mg once daily and 20 g of IVIG, and restart her on Amicar 1 g t.i.d.. She states she overall continues to not feel well. She is became for outpatient blood draw but then it was recommended that she come to the ED for further evaluation. She denies any actual chest pain but does have some burning sensation in his chest is a. She has not had any vaginal bleeding or rectal bleeding which she has also had in the past. She denies any headache weakness numbness or tingling. He is also followed by [facility]. Complaint: generalized weakness Location: generalized Related Data Home Medications Medication Instructions Recorded Confirmed metoprolol succinate [Toprol XL] 12.5 mg PO QDAY #0 10/12/11 04/05/20 polyethylene glycol 3350 [Miralax] 17 gm PO BEDTIME PRN #0 05/26/17 04/05/20 lisinopril 10 mg PO QAM 12/20/19 04/05/20 lorazepam 0.5 mg PO BEDTIME 12/20/19 04/05/20 ascorbic acid (vitamin C) [Vitamin 500 mg DAILY 02/08/20 04/05/20 C] cholecalciferol (vitamin D3) 50 mcg PO DAILY 02/08/20 04/05/20 [Vitamin D3] elderberry fruit 200 mg PO DAILY 02/08/20 04/05/20 multivitamin 1 tab PO DAILY 02/08/20 04/05/20 vitamin B complex 1 tab PO DAILY 02/08/20 04/05/20 prednisone 5 mg PO DAILY 03/15/20 04/05/20 ascorbic acid (vitamin C) [Vitamin 1,000 mg PO DAILY 04/05/20 04/05/20 C] biotin 5 mg PO DAILY 04/05/20 04/05/20 vitamin [id number] acid 1 tab PO DAILY 04/05/20 04/05/20 Previous Rx's Medication Instructions Recorded avatrombopag [Doptelet (10 tab 20 mg PO DAILY #14 tab 02/28/20 pack)] conjugated estrogens 0.625 mg/gram 0.625 mg VAGINAL 2XW #30 g 03/14/20 vaginal cream Allergies Allergy/AdvReac Type Severity Reaction Status Date / Time latex Allergy Mild LOCAL RASH Verified 04/21/20 10:30 Penicillins Allergy Mild CHILDHOOD Verified 04/21/20 10:30 Sulfa (Sulfonamide Allergy Mild SOMETHING Verified 04/21/20 10:30 Antibiotics) TO DO WITH BLADDER OR KIDNEY'S?? iodine AdvReac Intermediate RAPID Verified 04/21/20 10:30 HEART RATE (IV CONTRAST) Review of Systems Review of Systems ROS Unobtainable: All systems reviewed & are unremarkable except as noted in HPI and below Constitutional Constitutional: Denies chills, Denies fever(s), Denies frequent falls, Denies headache(s), Denies lethargy and Reports weakness ENT Ears, Nose, Mouth, and Throat: Denies vertigo, Denies dizziness, Denies headache(s) and Denies disequilibrium Cardiovascular Cardiovascular: Denies chest pain, Denies syncope, Denies irregular heart rhythm, Reports lightheadedness, Denies palpitations, Denies dyspnea, Denies dyspnea on exertion and Denies orthopnea Respiratory Respiratory: Denies cough, Denies hemoptysis, Denies excessive phlegm production, Denies dyspnea, Denies dyspnea on exertion and Denies wheezing Gastrointestinal Gastrointestinal: Denies abdominal pain, Denies change in bowel habits, Denies diarrhea, Denies nausea and Denies vomiting Musculoskeletal Musculoskeletal: Denies myalgias, Denies atrophy, Denies deformity and Denies numbness Integumentary/Breasts Skin/Breast: Denies pruritus, Denies erythema, Denies rash and Denies wounds Neurologic Neurologic: Denies abnormal speech, Denies confusion, Denies vertigo, Denies dizziness, Denies syncope, Denies frequent falls, Denies headache(s), Denies localized weakness, Denies numbness, Denies disequilibrium and Reports weakness Psychiatric Psychiatric: Denies confusion Endocrine Endocrine: Denies palpitations Hematologic/Lymphatic Hematologic/Lymphatic: Reports as per HPI and Reports easy bleeding Allergic/Immunologic Allergic/Immunologic: Denies wheezing Patient History Medical History (Updated 04/24/20 @ 09:32 by Precious Cox DO) Anxiety Atrial flutter Chronic steroid use History of ITP Hypertension Microscopic hematuria Osteoporosis Scoliosis Surgical History History of splenectomy History of tonsillectomy Status post hysterectomy Family History Father Cancer Mother Bleeding disorder Brother Brain cancer Social History marital status: household members: spouse lives independently: Yes Smoking Status: Never smoker alcohol intake: current Smoking Status: Never smoker alcohol intake frequency: 0-2 drinks per day Substance Use Type: does not use Exam Initial Vital Signs Initial Vital Signs: Vital Signs Temperature 98.4 F 04/24/20 07:27 Pulse Rate 74 04/24/20 07:27 Respiratory Rate 16 04/24/20 07:27 Blood Pressure 185/100 H 04/24/20 07:27 Pulse Oximetry 97 04/24/20 07:27 GENERAL: Alert thin pleasant 79-year-old female and in no acute distress. HEENT: Head atraumatic,EOMI, pupils reactive, face symmetric, moist mucous membranes CARDIOVASCULAR: Regular rate and rhythm without murmurs, rubs or gallops. RESPIRATORY: Breath sounds equal bilaterally, no wheezes rales or rhonchi. ABDOMEN: Soft, nontender. Normoactive bowel sounds all 4 quadrants. No guarding or rebound. EXTREMITIES: Normal range of motion, no clubbing or edema. Neurovascularly intact NEUROLOGICAL: Alert and oriented x4.Normal gait and speech. Cranial nerves II through XII grossly intact. SKIN: Warm, dry, no laceration, no petechiae, no rashes or lesions. Course Orders Ordered: ED Orders 04/24/20 06:59 Comprehensive Metabolic Panel Stat Partial Thromboplastin Time Stat Platelet Irradiated Stat Prothrombin Time INR Stat Troponin & CK Cardiac Panel Stat Type and Screen Stat 04/24/20 07:27 XR chest 1V Stat EKG-12 Lead Stat 04/24/20 08:22 CT head/brain wo con Stat 04/24/20 08:43 Urine Microscopic Stat 04/24/20 09:41 COVID19 Stat Discontinued Medications Methylprednisolone 1,000 mg/ (Sodium Chloride) 258 mls @ 258 mls/hr IV NOW ONE Stop: 04/24/20 08:23 Last Admin: 04/24/20 09:12 Dose: 258 mls/hr Documented by: SKIP Immune Globulin (Immune Globulin 10% (Ivig) Vial) 10 gm IV NOW ONE Stop: 04/24/20 09:16 Last Admin: 04/24/20 09:13 Dose: 10 gm Documented by: SKIP Pantoprazole Sodium (Pantoprazole 40 Mg Vial) 40 mg IV NOW ONE Stop: 04/24/20 09:37 Last Admin: 04/24/20 09:47 Dose: 40 mg Documented by: SKIP Vital Signs Vital signs: Vital Signs - 8 hr 04/24/20 07:27 04/24/20 08:00 04/24/20 09:28 Temperature 98.4 F Pulse Rate 74 54 L 57 L Respiratory Rate 16 Blood Pressure 185/100 H 148/70 H 156/74 H Pulse Oximetry 97 97 99 04/24/20 09:30 Temperature Pulse Rate 53 L Respiratory Rate Blood Pressure 153/70 H Pulse Oximetry 97 MDM - Weakness Lab Data Attestation: I reviewed the patient's lab results. Result diagrams: 04/24/20 06:59 04/24/20 06:59 Labs: Lab Results 04/24/20 04/24/20 04/24/20 Range/Units 06:59 06:59 06:59 WBC Cancelled RBC Cancelled Hgb Cancelled Hct Cancelled MCV Cancelled MCH Cancelled MCHC Cancelled RDW Cancelled Plt Count Cancelled Neut % (Auto) Cancelled Lymph % (Auto) Cancelled [place] % (Auto) Cancelled Eos % (Auto) Cancelled Baso % (Auto) Cancelled Neut # (Auto) Cancelled Lymph # (Auto) Cancelled [place] # (Auto) Cancelled Eos # (Auto) Cancelled Baso # (Auto) Cancelled PT 10.3 (10.1-12.7) SECONDS INR 0.9 (0.9-1.3) APTT 29 (26.4-36.2) SECONDS Sodium 136 L (137-145) mmol/L Potassium 3.9 (3.4-5.1) mmol/L Chloride 103 (98-107) mmol/L Carbon Dioxide 29 (22-32) mmol/L BUN 15 (7-17) mg/dL Creatinine 0.83 (0.52-1.04) mg/dL Estimated GFR > 60.0 (>60) mL/min BUN/Creatinine Ratio 18.1 (6-22) Glucose 117 H (80-110) mg/dL Calcium 9.7 (8.4-10.2) mg/dL Total Bilirubin 0.3 (0.2-1.3) mg/dL AST 21 (14-36) IU/L ALT 17 (<35) IU/L Alkaline Phosphatase 51 (38-126) U/L Total Creatine Kinase 55 (30-135) U/L CK-MB (CK-2) TNP CK-MB (CK-2) Rel Index TNP Troponin I < 0.012 (0.01-0.034) ng/mL Total Protein 7.6 (6.3-8.2) g/dL Albumin 4.4 (3.5-5.0) g/dL Globulin 3.2 (1.7-4.1) g/dL Albumin/Globulin Ratio 1.4 (1.0-2.8) Urine RBC (0-5/HPF) Urine WBC (0-5/HPF) Urine Bacteria (None) Ur Culture Indicated? SARS-CoV-2 (PCR) (Negative) Blood Type Antibody Screen 04/24/20 04/24/20 04/24/20 Range/Units 06:59 08:43 09:41 WBC RBC Hgb Hct MCV MCH MCHC RDW Plt Count Neut % (Auto) Lymph % (Auto) [place] % (Auto) Eos % (Auto) Baso % (Auto) Neut # (Auto) Lymph # (Auto) [place] # (Auto) Eos # (Auto) Baso # (Auto) PT (10.1-12.7) SECONDS INR (0.9-1.3) APTT (26.4-36.2) SECONDS Sodium (137-145) mmol/L Potassium (3.4-5.1) mmol/L Chloride (98-107) mmol/L Carbon Dioxide (22-32) mmol/L BUN (7-17) mg/dL Creatinine (0.52-1.04) mg/dL Estimated GFR (>60) mL/min BUN/Creatinine Ratio (6-22) Glucose (80-110) mg/dL Calcium (8.4-10.2) mg/dL Total Bilirubin (0.2-1.3) mg/dL AST (14-36) IU/L ALT (<35) IU/L Alkaline Phosphatase (38-126) U/L Total Creatine Kinase (30-135) U/L CK-MB (CK-2) CK-MB (CK-2) Rel Index Troponin I (0.01-0.034) ng/mL Total Protein (6.3-8.2) g/dL Albumin (3.5-5.0) g/dL Globulin (1.7-4.1) g/dL Albumin/Globulin Ratio (1.0-2.8) Urine RBC 5-10/hpf H (0-5/HPF) Urine WBC None seen (0-5/HPF) Urine Bacteria None seen (None) Ur Culture Indicated? Cult not indicated SARS-CoV-2 (PCR) Negative (Negative) Blood Type O Negative Antibody Screen Negative Urine Dip Bedside Urine Glucose Negative Bedside Urine Bilirubin - Negative Bedside Urine Ketone - Negative Urine Specific [place] 1.010 Bedside Urine Occult Blood ++ Bedside Urine pH 7 Bedside Urine Protein - Negative Bedside Urine Urobilinogen - Negative Bedside Urine Nitrite - Negative Bedside Urine Leukocytes - Negative Esterase Imaging Data CT scan - head: Radiologist Impression: PROCEDURE: CT HEAD/BRAIN WO CON INDICATIONS: low platelets TECHNIQUE: Noncontrast 4.5 mm thick angled axial sections acquired from the foramen magnum to the vertex, with coronal and sagittal reformats. For radiation dose reduction, the following was used: automated exposure control, adjustment of mA and/or kV according to patient size. COMPARISON: [facility], CT, CT HEAD/BRAIN WO CON, 04/21/2020, 11:10. FINDINGS: Image quality: Excellent. CSF spaces: Basal cisterns are patent. No extra-axial fluid collections. The ventricles are symmetric in size and shape. Brain: No intracranial bleeds or masses. There is cerebral volume loss for age, with resultant ventricular and sulcal prominence. There are periventricular and deep white matter chronic small vessel ischemic changes. There is intracranial internal carotid artery atherosclerosis. Skull and face: Calvarium and visualized facial bones appear intact, without suspicious lesions. Sinuses: Visualized sinuses and mastoids are clear. IMPRESSION: New line no CT evidence of acute intracranial pathology. No significant changes from previous study. Dictated by: Rahul Santoyo M.D. on 04/24/2020 at 8:37 ECG Data Attestation: I personally reviewed and interpreted this ECG as follows: Prior ECG tracings: available for review Interpretation: Sinus rhythm rate 59 p.r. interval 158 QRS [address] changes or T-wave inversions MDM Narrative Medical decision making narrative: Platelets came back at 3 today. 8:[address] Castellanos consulted. Recommends admitting high-dose methylprednisolone at [place] 1 g daily for 3 days plus IV IG at 1 gram/kilogram recommends 50 g per day along with platelet transfusion. Dr. Bill actually called the emergency department and states that patient has reaction to IVIG stating that increases her platelets to over 1 million this time recommend 10 g of IVIG x1 and dexamethasone 40 mg x 1. He will consult in the hospital. Dr. Lyons accepts patient for admission Discharge Plan Departure Patient Disposition: Admitted As Inpatient Clinical Impression: Thrombocytopenia Admit Date/Time: 04/24/20 09:44 Admit Provider: Thomas Lyons
--- NOTE | 2020-04-24 07:27 | DI.RAD.S_ITS ---
PROCEDURE: XR CHEST 1V INDICATIONS: burning spit up blood TECHNIQUE: One view of the chest was acquired. COMPARISON: [facility], , CHEST 1 VIEW, 04/10/2017, 18:07. FINDINGS: Surgical changes and devices: None. Lungs and pleura: Lungs are clear. No pleural effusions or pneumothorax. Mediastinum: Mediastinal contours appear normal. Heart size is normal. Bones and chest wall: Severe scoliosis and discogenic changes. IMPRESSION: No acute disease. Scoliosis Dictated by: Marky Renteria M.D. on 04/24/2020 at 8:28 Approved by: Marky Renteria M.D. on 04/24/2020 at 8:31
[2020-04-24 07:34] LABS: INR 0.9 (0.9-1.3); Prothrombin Time 10.3 SECONDS (10.1-12.7)
[2020-04-24 07:37] LABS: PTT Partial Thromboplastin Tim 29 SECONDS (26.4-36.2)
[2020-04-24 07:38] LABS: Alanine Aminotransferase 17 IU/L (<35); Albumin 4.4 g/dL (3.5-5.0); Albumin Globulin Ratio 1.4 (1.0-2.8); Alkaline Phosphatase 51 U/L (38-126); Aspartate Aminotransferase 21 IU/L (14-36); BUN Creatinine Ratio 18.1 (6-22); Bilirubin Total 0.3 mg/dL (0.2-1.3); Blood Urea Nitrogen 15 mg/dL (7-17); Calcium 9.7 mg/dL (8.4-10.2); Carbon Dioxide 29 mmol/L (22-32); Chloride 103 mmol/L (98-107); Creatine Kinase 55 U/L (30-135); Estimated Glomerular Filt Rate > 60.0 mL/min (>60); Globulin 3.2 g/dL (1.7-4.1); Glucose 117 mg/dL (80-110); HEMOLYSIS < 15 (0-50); Potassium 3.9 mmol/L (3.4-5.1); Sodium 136 mmol/L (137-145); Total Protein 7.6 g/dL (6.3-8.2)
[2020-04-24 07:50] LABS: Troponin I < 0.012 ng/mL (0.01-0.034)
--- NOTE | 2020-04-24 08:22 | DI.CT.S_ITS ---
PROCEDURE: CT HEAD/BRAIN WO CON INDICATIONS: low platelets TECHNIQUE: Noncontrast 4.5 mm thick angled axial sections acquired from the foramen magnum to the vertex, with coronal and sagittal reformats. For radiation dose reduction, the following was used: automated exposure control, adjustment of mA and/or kV according to patient size. COMPARISON: [facility], CT, CT HEAD/BRAIN WO CON, 04/21/2020, 11:10. FINDINGS: Image quality: Excellent. CSF spaces: Basal cisterns are patent. No extra-axial fluid collections. The ventricles are symmetric in size and shape. Brain: No intracranial bleeds or masses. There is cerebral volume loss for age, with resultant ventricular and sulcal prominence. There are periventricular and deep white matter chronic small vessel ischemic changes. There is intracranial internal carotid artery atherosclerosis. Skull and face: Calvarium and visualized facial bones appear intact, without suspicious lesions. Sinuses: Visualized sinuses and mastoids are clear. IMPRESSION: New line no CT evidence of acute intracranial pathology. No significant changes from previous study. Dictated by: Rahul Santoyo M.D. on 04/24/2020 at 8:37 Approved by: Rahul Santoyo M.D. on 04/24/2020 at 8:37
[2020-04-24 08:57] LABS: Bacteria Urine None Seen; WBC Urine None Seen (0-5/HPF)
[2020-04-24 09:04] LABS: Culture Indicated Urine Cult Not Indicated; RBC Urine 5-10/HPF (0-5/HPF)
[2020-04-24] MEDS: methylPREDNISolone 1,000 MG in SODIUM CHLORIDE 0.9% 250 ML 258 ML IV (09:12)
[2020-04-24] MEDS: IMMUNE GLOBULIN 10% IV (09:13)
[2020-04-24] MEDS: PANTOPRAZOLE 40 MG VIAL IV (09:47)
[2020-04-24 09:58] LABS: COVID19 -Nasal RAPID Negative (Negative)
--- NOTE | 2020-04-24 09:58 | PC.NURSE ---
0958 hrs: Titrate Ivig to 70 mL/hr for 35 mLs.
--- NOTE | 2020-04-24 10:47 | PM.HP.1 ---
History of Present Illness History of Present Illness Date Patient Seen: 04/24/20 Time Patient Seen: 10:47 Chief complaint: SPITTING UP BLOOD THIS MORNING Narrative: Ms. 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 Patient was in the ER about 3 days ago, had a platelet count of 6 and was given steroids and IVIG. Over the weekend she continued to feel fatigued and weak. Denied any focal numbness, tingling, or slurred speech. She denied any melena or bright red blood per rectum. She denies nausea, vomiting, abdominal pain, headaches, or vision changes. She denies fever, chills, cough. This morning she had a small amount of blood in her mouth but none since. She does note some increased oral blsiters this morning. In the emergency room, patient was mildly hypertensive, HR in the 50s, but the remainder of her vital signs were unremarkable. Laboratory evaluation revealed an unremarkable BMP, negative troponin, CBC showed a platelet count of 3 (performed as an outpatient). UA was not remarkable for infection. COVID 19 testing was negative. CXR and head CT were unremarkable. Patient History Medical History Anxiety Atrial flutter Chronic steroid use History of ITP Hypertension Microscopic hematuria Osteoporosis Scoliosis Surgical History History of splenectomy History of tonsillectomy Status post hysterectomy Family & Social History Family History Father Cancer Mother Bleeding disorder Brother Brain cancer Social History: household members spouse lives independently Yes Safety & Behavioral: Feels Safe in Current Yes Environment Been Physically Hurt or No Threatened By a Person Tobacco & Substance use: Smoking Status Never smoker alcohol intake current alcohol intake frequency 0-2 drinks per day Substance Use Type does not use Meds Home Medications and Allergies Home Medications Medication Instructions Recorded Confirmed Type metoprolol succinate [Toprol XL] 12.5 mg PO QDAY #0 10/12/11 04/24/20 History polyethylene glycol 3350 [Miralax] 17 gm PO BEDTIME PRN #0 05/26/17 04/24/20 History lisinopril 10 mg PO QAM 12/20/19 04/24/20 History lorazepam 0.5 mg PO BEDTIME 12/20/19 04/24/20 History ascorbic acid (vitamin C) [Vitamin 500 mg DAILY 02/08/20 04/24/20 History C] cholecalciferol (vitamin D3) 50 mcg PO DAILY 02/08/20 04/24/20 History [Vitamin D3] elderberry fruit 200 mg PO DAILY 02/08/20 04/24/20 History multivitamin 1 tab PO DAILY 02/08/20 04/24/20 History vitamin B complex 1 tab PO DAILY 02/08/20 04/24/20 History avatrombopag [Doptelet (10 tab 20 mg PO DAILY #14 tab 02/28/20 04/24/20 Rx pack)] conjugated estrogens 0.625 mg/gram 0.625 mg VAGINAL 2XW #30 g 03/14/20 04/24/20 Rx vaginal cream prednisone 50 mg PO DAILY 03/15/20 04/24/20 History vitamin Q38-[id number] acid 1 tab PO DAILY 04/05/20 04/24/20 History aminocaproic acid [Amicar] 500 mg PO QID 04/24/20 04/24/20 History Allergies Allergy/AdvReac Type Severity Reaction Status Date / Time latex Allergy Mild LOCAL RASH Verified 04/21/20 10:30 Penicillins Allergy Mild CHILDHOOD Verified 04/21/20 10:30 Sulfa (Sulfonamide Allergy Mild SOMETHING Verified 04/21/20 10:30 Antibiotics) TO DO WITH BLADDER OR KIDNEY'S?? iodine AdvReac Intermediate RAPID Verified 04/21/20 10:30 HEART RATE (IV CONTRAST) Review of Systems Review of Systems Narrative: All other systems reviewed with the patient and are negative unless otherwise stated. Exam Vital Signs (past 8 hours): - 04/24/20 07:27 04/24/20 08:00 04/24/20 09:28 Temperature 98.4 F Pulse Rate 74 54 L 57 L Respiratory Rate 16 Blood Pressure 185/100 H 148/70 H 156/74 H Pulse Oximetry 97 97 99 04/24/20 09:30 Temperature Pulse Rate 53 L Respiratory Rate Blood Pressure 153/70 H Pulse Oximetry 97 Oxygen Delivery Method Room Air Narrative Exam Narrative: GENERAL APPEARANCE: well developed, slightly pale, elderly woman in no acute distress. HEENT: Normocephalic, PERRLA, conjunctiva clear, EOMs intact without nystagmus, no rhinorrhea or epistaxis, mucous membranes are moist and pink, oral petechiae are present throughout. NECK/THYROID: neck supple, no JVD, no carotid bruit, no thyromegaly, trachea midline. LYMPH NODES: no cervical or supraclavicular lymphadenopathy. SKIN: [place], warm and dry, no visible lesions, rashes, scattered petechiae improved HEART: regular rate and rhythm, S1-S2, no murmur, no rubs or gallops, brisk capillary refill, no edema LUNGS: clear to auscultation bilaterally, no coarseness crackles or wheezing, no cough present CHEST: Symmetrical movement, no accessory muscle use, good tidal volume. ABDOMEN: Soft, no distention, no abdominal tenderness, no guarding or peritoneal signs, no organomegaly, no flank or suprapubic tenderness, active bowel tones. EXTREMITIES: moves all extremities, strength is 5/5 and symmetrical, no deformities or joint effusions. NEUROLOGIC: AAO x4, no focal neurologic deficits, cranial nerves II-XII grossly intact, sensation intact to light touch, hearing grossly normal to speech. PSYCH: Quiet, anxious, cooperative and very particular and regimented Objective Labs Result Diagrams: 04/24/20 06:59 04/24/20 06:59 Labs: Laboratory Results - last 24 hr 04/24/20 04/24/20 04/24/20 06:59 06:59 06:59 WBC Cancelled RBC Cancelled Hgb Cancelled Hct Cancelled MCV Cancelled MCH Cancelled MCHC Cancelled RDW Cancelled Plt Count Cancelled Neut % (Auto) Cancelled Lymph % (Auto) Cancelled [place] % (Auto) Cancelled Eos % (Auto) Cancelled Baso % (Auto) Cancelled Neut # (Auto) Cancelled Lymph # (Auto) Cancelled [place] # (Auto) Cancelled Eos # (Auto) Cancelled Baso # (Auto) Cancelled PT 10.3 INR 0.9 APTT 29 Sodium 136 L Potassium 3.9 Chloride 103 Carbon Dioxide 29 BUN 15 Creatinine 0.83 Estimated GFR > 60.0 BUN/Creatinine Ratio 18.1 Glucose 117 H Calcium 9.7 Total Bilirubin 0.3 AST 21 ALT 17 Alkaline Phosphatase 51 Total Creatine Kinase 55 CK-MB (CK-2) TNP CK-MB (CK-2) Rel Index TNP Troponin I < 0.012 Total Protein 7.6 Albumin 4.4 Globulin 3.2 Albumin/Globulin Ratio 1.4 Urine RBC Urine WBC Urine Bacteria Ur Culture Indicated? SARS-CoV-2 (PCR) Blood Type Antibody Screen 04/24/20 04/24/20 04/24/20 06:59 08:43 09:41 WBC RBC Hgb Hct MCV MCH MCHC RDW Plt Count Neut % (Auto) Lymph % (Auto) [place] % (Auto) Eos % (Auto) Baso % (Auto) Neut # (Auto) Lymph # (Auto) [place] # (Auto) Eos # (Auto) Baso # (Auto) PT INR APTT Sodium Potassium Chloride Carbon Dioxide BUN Creatinine Estimated GFR BUN/Creatinine Ratio Glucose Calcium Total Bilirubin AST ALT Alkaline Phosphatase Total Creatine Kinase CK-MB (CK-2) CK-MB (CK-2) Rel Index Troponin I Total Protein Albumin Globulin Albumin/Globulin Ratio Urine RBC 5-10/hpf H Urine WBC None seen Urine Bacteria None seen Ur Culture Indicated? Cult not indicated SARS-CoV-2 (PCR) Negative Blood Type O Negative Antibody Screen Negative Assessment & Plan Assessment & Plan narrative: This is a 79-year-old female patient who presents to the ER with recurrence of ITP, failing initial outpatient treatments, admitted for severe thrombocytopenia. 1. Idiopathic thrombocytopenic purpura, acute on chronic, present on admission, active -patient has a platelet count of 3 down from 6 3 days ago after receiving IVIG and steroids. -Dr. Horta recommended 10g of IVIG (previously patient had overcorrected with Plt count of >2M previously with full dose. Available to see patient tomorrow per ER provider. -ER provider ordered 1 platelet transfusion, 1000 mg of methyprednisolone, and 10 g of IVIG. Will assess response after initial therapies. - no evidence of active bleeding. head CT and CXR unremarkable. - will hold home prednisone at this time, await response before deciding on further steroid dosing for tomorrow. 2. Hypertension, chronic, stable -continue home regimen of lisinopril 10 mg daily. 3. History of atrial flutter, chronic, stable -continue home regimen of metoprolol succinate 12.5 mg daily 4. Anxiety, chronic, stable -ordered lorazepam 0.5 mg nightly as needed for anxiety. VTE prophylaxis: Contraindicated, patient to use her home compression stockings, bruises easily with SCDs. Diet: Heart healthy Code status: Full code, patient designates her be surrogate decision maker. Dispo: Admit as inpatient.
--- NOTE | 2020-04-24 12:26 | PC.ADMIT ---
[email or web address] Admission Note:Patient arrived to floor via portable and was able to ambulate to the bed, stand by assist. Patient hypertensive 156/74, Pulse is low 57. Patient denies pain, lung sounds clear. Tele: NS. Patient arrived to the unit with Immune Globulin still transfusing at 70ml/hr. Waiting for platelets to arrive for transfusion. Bed alarm is active, call light within reach, bed is low and locked. The patient,Priscilla Mahan,79 y/o, was given written information regarding hospital policies, unit procedures and contact persons. Patient's smoking status: Never smoker. Vital Signs - 8 hr 04/24/20 07:27 04/24/20 08:00 04/24/20 09:28 Temperature 98.4 F Pulse Rate 74 54 L 57 L Respiratory Rate 16 Blood Pressure 185/100 H 148/70 H 156/74 H Pulse Oximetry 97 97 99 04/24/20 09:30 04/24/20 11:19 04/24/20 12:00 Temperature Pulse Rate 53 L 53 L Respiratory Rate Blood Pressure 153/70 H 153/70 H Pulse Oximetry 97 97
[2020-04-24] MEDS: METOPROLOL ER 25 MG TABLET 12.5 MG PO (12:31)
[2020-04-24] MEDS: LORazepam 0.5 MG TABLET PO ×2 (15:28→21:55)
--- NOTE | 2020-04-24 18:12 | PC.NURSE ---
Addendum entered by Tressa Tucker R.N. 04/24/20 22:06: Pt recieved one unit platelets w/o incidence. Denies any discomfort. Tele shows NSR per ICU staff. Ativan given @ HS per pt request. Call light w/in reach, bed alarm on for pt safety. Continue w/plan of care. Original Note: Pt denies any discomfort at this time. SpO2 97% RA. LFA HL intact/patent. RFA HL infusing first unit of platelets. VSS Call light w/in reach, pt cals appropriately for needs.
[2020-04-25] VITALS (7 sets, daily range): BP systolic 101–126; BP diastolic 57–70; PULSE 50–76; RESP 16–18; TEMP 35.9–36.6; O2SAT 94–97
[2020-04-25] MEDS: MELATONIN 3 MG TABLET PO (01:16)
[2020-04-25] MEDS: polyethylene glycoL 3350 17 GM POWD.PACK PO (01:17)
[2020-04-25] MEDS: ACETAMINOPHEN 325 MG TABLET 650 MG PO (01:17)
[2020-04-25 05:51] LABS: Add Manual Diff / Slide Review NO; Basophils Absolute Auto 0 /uL (0-100); Basophils Percent Auto 0.1 % (0-2); Eosinophils Absolute Auto 0 /uL (0-450); Hematocrit 34.9 % (36-46); Hemoglobin 11.5 g/dL (12.0-16.0); Lymphocytes Absolute Auto 1200 /uL (1100-4500); Lymphocytes Percent Auto 9.9 % (25-40); Mean Corpuscular HGB Conc 32.9 % (30-36); Mean Corpuscular Hemoglobin 30.8 PG (26-34); Mean Corpuscular Volume 93.6 fL (80-100); Monocytes Absolute Auto 800 /uL (0-900); Monocytes Percent Auto 6.3 % (3-14); Neutrophils Absolute Auto 10200 /uL (1500-7000); Neutrophils Percent Auto 83.7 % (50-75); Red Blood Cell Count 3.73 X10^6/uL (4.0-5.2); Red Cell Distribution Width 16.5 % (11.6-14.8); White Blood Cell Count 12.2 X10^3/uL (4.5-11.0)
[2020-04-25 05:59] LABS: Platelet Count 60 X10^3/uL (150-400)
[2020-04-25] MEDS: CHOLECALCIFEROL (VITAMIN D3) 1,000 UNIT TABLET 2000 UNIT PO (08:36)
[2020-04-25] MEDS: METOPROLOL ER 25 MG TABLET 12.5 MG PO (08:41)
--- NOTE | 2020-04-25 09:24 | PM.DS.1 ---
History of Present Illness History of Present Illness Chief complaint: SPITTING UP BLOOD THIS MORNING Narrative: Ms. 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 Patient was in the ER about 3 days ago, had a platelet count of 6 and was given steroids and IVIG. Over the weekend she continued to feel fatigued and weak. Denied any focal numbness, tingling, or slurred speech. She denied any melena or bright red blood per rectum. She denies nausea, vomiting, abdominal pain, headaches, or vision changes. She denies fever, chills, cough. This morning she had a small amount of blood in her mouth but none since. She does note some increased oral blsiters this morning. In the emergency room, patient was mildly hypertensive, HR in the 50s, but the remainder of her vital signs were unremarkable. Laboratory evaluation revealed an unremarkable BMP, negative troponin, CBC showed a platelet count of 3 (performed as an outpatient). UA was not remarkable for infection. COVID 19 testing was negative. CXR and head CT were unremarkable. Discharge Providers Provider Date of admission: 04/24/20 09:44 Discharge Date: 04/25/20 Primary care physician: Henny Dinh PA-C Discharge provider: Thomas Lyons DO Summary Hospital Course Discharge Diagnosis: 1. Idiopathic thrombocytopenic purpura, acute on chronic, present on admission, active 2. Hypertension, chronic, stable 3. History of atrial flutter, chronic, stable 4. Anxiety, chronic, stable Hospital Course: This is a 79-year-old female patient who presents to the ER with recurrence of ITP, failing initial outpatient treatments, admitted for severe thrombocytopenia with a platelet count of 3 on the day of admission. She received 1 g of methylprednisolone in the emergency room along with 10 g of IVIG per direction from her perinatal social worker. She was admitted for ITP. She had been recently admitted with a GI bleed but this did not occur over the course of admission. She had no events on telemetry. She improved much more quickly than expected. The following morning [place] [address]. Spoke with her perinatal social worker whom recommended continued prednisone 40 mg daily, Doptelet 20 mg daily, and cessation of her amicar as platelet count improved above 30K. Repeat CBC for tomorrow was ordered as an outpatient. Exam Vital Signs (past 8 hours): - 04/25/20 04:47 04/25/20 06:00 04/25/20 07:37 Temperature 97.8 F 96.7 F L Pulse Rate 76 50 L Respiratory Rate 18 16 Blood Pressure 101/57 L 124/60 Pulse Oximetry 94 94 97 04/25/20 08:41 Temperature Pulse Rate 51 L Respiratory Rate Blood Pressure 119/70 Pulse Oximetry Oxygen Delivery Method Room Air Oxygen Flow Rate 0 Narrative Exam Narrative: GENERAL APPEARANCE: well developed, slightly pale, elderly woman in no acute distress. HEENT: Normocephalic, PERRLA, conjunctiva clear, EOMs intact without nystagmus, no rhinorrhea or epistaxis, mucous membranes are moist and pink, oral petechiae are present, though slightly improved today. NECK/THYROID: neck supple, no JVD, no carotid bruit, no thyromegaly, trachea midline. LYMPH NODES: no cervical or supraclavicular lymphadenopathy. SKIN: [place], warm and dry, no visible lesions, rashes, scattered petechiae HEART: regular rate and rhythm, S1-S2, no murmur, no rubs or gallops, brisk capillary refill, no edema LUNGS: clear to auscultation bilaterally, no coarseness crackles or wheezing, no cough present CHEST: Symmetrical movement, no accessory muscle use, good tidal volume. ABDOMEN: Soft, no distention, no abdominal tenderness, no guarding or peritoneal signs, no organomegaly, no flank or suprapubic tenderness, active bowel tones. EXTREMITIES: moves all extremities, strength is 5/5 and symmetrical, no deformities or joint effusions. NEUROLOGIC: AAO x4, no focal neurologic deficits, cranial nerves II-XII grossly intact, sensation intact to light touch, hearing grossly normal to speech. PSYCH: Quiet, anxious, cooperative and very particular and regimented Objective Labs Result Diagrams: 04/25/20 05:20 04/24/20 06:59 Labs: Laboratory Results - last 24 hr 04/24/20 04/24/20 04/25/20 06:59 09:41 05:20 WBC 12.2 H RBC 3.73 L Hgb 11.5 L Hct 34.9 L MCV 93.6 MCH 30.8 MCHC 32.9 RDW 16.5 H Plt Count 60 L Neut % (Auto) 83.7 H Lymph % (Auto) 9.9 L George % (Auto) 6.3 Eos % (Auto) 0.0 L Baso % (Auto) 0.1 Neut # (Auto) 97107 H Lymph # (Auto) 1200 George # (Auto) 800 Eos # (Auto) 0 Baso # (Auto) 0 SARS-CoV-2 (PCR) Negative Blood Type O Negative Antibody Screen Negative [facility] Medical History Anxiety Atrial flutter Chronic steroid use History of ITP Hypertension Microscopic hematuria Osteoporosis Scoliosis Surgical History History of splenectomy History of tonsillectomy Status post hysterectomy Family History Father Cancer Mother Bleeding disorder Brother Brain cancer Social History marital status: household members: spouse lives independently: Yes Smoking Status: Never smoker alcohol intake: current Discharge Plan Discharge Plan Patient Disposition: Home Provider Discharge Comment: You were admitted to the hospital with low platelets. No evidence of bleeding occurred. You responded well to your platelet transfusion and IVIG/steroids. Dr. Horta recommends you continue on prednisone 40 mg daily, and the Doptelet 20 mg daily. You do not need to take amicar given your plt count is above 30. He recommended you get another blood draw tomorrow Discharge orders & Medications Prescriptions: Continued metoprolol succinate [Toprol XL] 25 MG tablet extended release 24 hr 12.5 mg PO QDAY Qty: 0 RF: 0 polyethylene glycol 3350 [Miralax] 17 GM powder in packet 17 gm PO BEDTIME PRN (Reason: Constipation) Qty: 0 RF: 0 conjugated estrogens 0.625 mg/gram cream 0.625 mg vaginal 2XW Qty: 30 RF: 3 multivitamin Tablet 1 tab PO DAILY RF: 0 ascorbic acid (vitamin C) [Vitamin C] 500 mg Tablet 500 mg DAILY RF: 0 vitamin B complex Tablet 1 tab PO DAILY RF: 0 elderberry fruit 200 mg Capsule 200 mg PO DAILY RF: 0 cholecalciferol (vitamin D3) [Vitamin D3] 50 mcg (2,000 unit) Capsule 50 mcg PO DAILY RF: 0 vitamin T46-xliih acid 0.5-1 mg Tablet 1 tab PO DAILY RF: 0 Doptelet (10 tab pack) 20 mg tablet 20 mg PO DAILY Qty: 14 RF: 0 lorazepam 0.5 mg tablet 0.5 mg PO BEDTIME RF: 0 lisinopril 10 mg tablet 10 mg PO QAM RF: 0 Changed prednisone 20 mg tablet 40 mg PO DAILY Qty: 0 RF: 0 Discontinued aminocaproic acid [Amicar] 500 mg tablet 500 mg PO QID RF: 0 Other Ambulatory Orders: Complete Blood Count AUTO DIFF (Routine) Timeframe: 1 Day Facility: [facility] - Location: Laboratory Ordered By: Thomas Lyons Follow up/Referrals: Henny Dinh PA-C [Primary Care Provider] - Diet/Activity/Treatments Diet: Diet as Tolerated Activity: As tolerated Discharge Data Primary Care Provider: Henny Dinh
--- NOTE | 2020-04-25 11:10 | PC.NURSE ---
Pt education given to pt, discussed- DI for ITP, f/u appts, worsening symptoms, s/s of stroke, f/u appts and labs ordered, diet, activity. IV's removed, intact, tolerated well. Tele removed, [employer] informed. Pt dressed independently, packed all belongings and placed in personal bag. Pt left via w/c to and POV at ER entrance.
--- NOTE | 2020-04-25 11:59 | CM.DANOTE ---
DCP ASSESSMENT: Patient is a 79 year-old female who was admitted to the hospital for recurrent immune thrombocytopenic purpura (ITP). PCP Dr. Henny Dinh. Primary Payer Medicare and Commercial Insurance. Provided patient with a copy of the Important Message from Medicare. 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 Educated patient on role of social work in discharge planning. Patient reported she is independent with ADL?s including driving at baseline, she plans on driving herself home from the hospital as she has her truck in the parking lot. Patient was in the ER on 04/21 for low platelets, and a bleeding episode on 02/25. Patient reported that she has been receiving care for ITP from the [facility] [place] but, plans on moving hematology care to [facility] as she is currently being followed by Dr. Burgess and would like care closer to [place], [place] vs the drive to [place]. PLAN: D/C orders in chart, Anticipate D/C home with . REYMUNDO Law MSW Student Discharge Planning/Care Management Advanced directive, confirm from FAMILY Start: 04/24/20 11:18 Freq: Q24H Status: Discharge Protocol: Document 04/24/20 11:18 KLP (Rec: 04/24/20 11:19 KLP [id number]) Advance Directive, confirm on record Time 11:19 Person contacted patient Copy received No CM Discharge Assessment Start: 04/25/20 10:52 Freq: Status: Discharge Protocol: Document 04/25/20 10:52 AL (Rec: 04/25/20 10:54 AL [id number]) Discharge Planning Assessment Assigned Transaction Coordinator REYMUNDO Nielsen Student Contact Information Jayson Mahan, # Advance Directives? Yes Advance Directives on File No History Provided By Patient,Medical Record Has Patient been admitted in last 30 Yes days? Comment 02/25 and 04/21 Prior Living Arrangements House Household Members spouse Type of transporation used prior to Drives own vehicle admit Independent with ADL's Yes Is patient alert and oriented? Yes Discharge Plan Home Transportation Arrangement Patient reported she plans to drive herself home from hospital. Referrals Initiated None needed Whiteboard Updated in Patient Room with Yes name and ext. # of Transaction Coordinator Review Status In Process
== END 2020-04-25 11:12 | disposition home or self-care (01) | DRG 813 ==
LOC: ED 09:32 → AC 09:45
PROVIDERS: Admitting Provider Internal Medicine; Emergency Provider Emergency Medicine; PCP Physician Assistant; Referring Provider Emergency Medicine; Visit Provider Internal Medicine
DX: D69.3 Immune thrombocytopenic purpura (principal); I48.92 Unspecified atrial flutter; D69.6 Thrombocytopenia, unspecified; I10 Essential (primary) hypertension; F41.9 Anxiety disorder, unspecified; Z79.52 Long term (current) use of systemic steroids; Z20.822 Contact with and (suspected) exposure to COVID-19
CPT/HCPCS: 36415; 36430; 70450; 71045; 80053; 81003; 81015; 82550; 83690; 84484; 85007; 85025; 85610; 85730; 86850; 86900; 86901; 87635; 93005; 93010; 96365; 96366; 96375; 99284; C9803; P9016; C9113; J1561; J2930; P9035

== ENCOUNTER 2020-05-16 21:01 | Emergency (ER) | payer MEDICARE, OTHER, SELFPAY ==
[2020-04-24 11:11] VITALS: BMI 20.5
[2020-05-16 21:00] VITALS: BP 140/68; PULSE 74; RESP 15; TEMP 36.7; O2SAT 96; BMI 20.5
[2020-05-16 21:25] LABS: Add Manual Diff / Slide Review NO; Basophils Absolute Auto 100 /uL (0-100); Basophils Percent Auto 0.6 % (0-2); Eosinophils Absolute Auto 0 /uL (0-450); Eosinophils Percent Auto 0.1 % (2-4); Hematocrit 37.3 % (36-46); Hemoglobin 12.5 g/dL (12.0-16.0); Lymphocytes Absolute Auto 900 /uL (1100-4500); Lymphocytes Percent Auto 4.7 % (25-40); Mean Corpuscular HGB Conc 33.5 % (30-36); Mean Corpuscular Hemoglobin 31.2 PG (26-34); Mean Corpuscular Volume 93.3 fL (80-100); Monocytes Absolute Auto 800 /uL (0-900); Monocytes Percent Auto 4.4 % (3-14); Neutrophils Absolute Auto 16800 /uL (1500-7000); Neutrophils Percent Auto 90.2 % (50-75); Platelet Count 439 X10^3/uL (150-400); Red Cell Distribution Width 16.7 % (11.6-14.8); White Blood Cell Count 18.6 X10^3/uL (4.5-11.0)
[2020-05-16 21:29] LABS: INR 0.9 (0.9-1.3); Prothrombin Time 10.6 SECONDS (10.1-12.7)
[2020-05-16 21:32] LABS: PTT Partial Thromboplastin Tim 31 SECONDS (26.4-36.2)
[2020-05-16 21:36] LABS: Alanine Aminotransferase 16 IU/L (<35); Albumin 4.1 g/dL (3.5-5.0); Albumin Globulin Ratio 1.4 (1.0-2.8); Alkaline Phosphatase 64 U/L (38-126); Aspartate Aminotransferase 26 IU/L (14-36); BUN Creatinine Ratio 18.6 (6-22); Bilirubin Total 0.2 mg/dL (0.2-1.3); Blood Urea Nitrogen 16 mg/dL (7-17); Calcium 9.5 mg/dL (8.4-10.2); Carbon Dioxide 26 mmol/L (22-32); Chloride 95 mmol/L (98-107); Estimated Glomerular Filt Rate > 60.0 mL/min (>60); Globulin 2.9 g/dL (1.7-4.1); Glucose 164 mg/dL (80-110); HEMOLYSIS < 15 (0-50); Lipase 63 U/L (23-300); Potassium 3.9 mmol/L (3.4-5.1); Sodium 129 mmol/L (137-145)
--- NOTE | 2020-05-17 01:03 | ED_ITS ---
HPI - Abdominal Pain General Chief Complaint: Abdominal Pain Stated Complaint: Lt sides abd pain Time Seen by Provider: 05/17/20 01:03 Source: patient Mode of arrival: EMS Limitations: no limitations History of Present Illness HPI narrative: Patient is a 79-year-old female who has a history of quite severe ITP and splenectomy presenting with left upper quadrant pain. She has started this morning radiating around to her back. She has felt nauseous but has not vomited. She denies fever or chills. She says some of the medication too long for ITP could potentially cause a clot so she is worried that she has a clot. She denies any chest pain or shortness of breath. Her pain has continued throughout the day she called nursing hotline who recommended that she come to the emergency department is it might be her heart. MD complaint: abdominal pain Onset (ago): hour(s) Pain Consistency: intermittent Location: LUQ Severity: moderate Quality: sharp Relieving factors: nothing Exacerbating factors: nothing Associated symptoms: nausea Related Data Home Medications Medication Instructions Recorded Confirmed metoprolol succinate [Toprol XL] 12.5 mg PO QDAY #0 10/12/11 05/03/20 polyethylene glycol 3350 [Miralax] 17 gm PO BEDTIME PRN #0 05/26/17 05/03/20 lisinopril 10 mg PO QAM 12/20/19 05/03/20 lorazepam 0.5 mg PO BEDTIME 12/20/19 05/03/20 ascorbic acid (vitamin C) [Vitamin 500 mg DAILY 02/08/20 05/03/20 C] cholecalciferol (vitamin D3) 50 mcg PO DAILY 02/08/20 05/03/20 [Vitamin D3] elderberry fruit 200 mg PO DAILY 02/08/20 05/03/20 multivitamin 1 tab PO DAILY 02/08/20 05/03/20 vitamin B complex 1 tab PO DAILY 02/08/20 05/03/20 vitamin N36-nsvfl acid 1 tab PO DAILY 04/05/20 04/24/20 prednisone 20 mg PO DAILY 05/03/20 05/03/20 Previous Rx's Medication Instructions Recorded Doptelet (10 tab pack) 20 mg PO DAILY #14 tab 02/28/20 conjugated estrogens 0.625 mg/gram 0.625 mg VAGINAL 2XW #30 g 02/02/21 vaginal cream prochlorperazine maleate 5 mg PO Q6H PRN #20 tab 05/17/20 [Compazine] Allergies Allergy/AdvReac Type Severity Reaction Status Date / Time latex Allergy Mild LOCAL RASH Verified 05/16/20 21:05 Penicillins Allergy Mild CHILDHOOD Verified 05/16/20 21:05 Sulfa (Sulfonamide Allergy Mild SOMETHING Verified 05/16/20 21:05 Antibiotics) TO DO WITH BLADDER OR KIDNEY'S?? iodine AdvReac Intermediate RAPID Verified 05/16/20 21:05 HEART RATE (IV CONTRAST) Review of Systems Review of Systems ROS Unobtainable: All systems reviewed & are unremarkable except as noted in HPI and below Constitutional Constitutional: Denies chills, Denies fever(s), Denies lethargy and Denies weakness ENT Ears, Nose, Mouth, and Throat: Denies change in voice, Denies dizziness, Denies neck pain and Denies sore throat Cardiovascular Cardiovascular: Denies chest pain, Denies syncope, Denies irregular heart rhythm, Denies lightheadedness, Denies palpitations, Denies dyspnea, Denies dyspnea on exertion and Denies orthopnea Respiratory Respiratory: Denies cough, Denies dyspnea, Denies dyspnea on exertion and Denies wheezing Gastrointestinal Gastrointestinal: Reports as per HPI and Reports nausea Musculoskeletal Musculoskeletal: Denies back pain and Denies neck pain Integumentary/Breasts Skin/Breast: Denies pruritus, Denies erythema, Denies rash and Denies wounds Neurologic Neurologic: Denies dizziness, Denies syncope and Denies weakness Endocrine Endocrine: Denies palpitations Allergic/Immunologic Allergic/Immunologic: Denies wheezing Patient History Medical History (Updated 05/17/20 @ 03:18 by Precious Cox DO) Anxiety Atrial flutter Chronic steroid use History of ITP Hypertension Microscopic hematuria Osteoporosis Scoliosis Surgical History History of splenectomy History of tonsillectomy Status post hysterectomy Family History Father Cancer Mother Bleeding disorder Brother Brain cancer Social History marital status: household members: spouse lives independently: Yes Smoking Status: Never smoker alcohol intake: current Smoking Status: Never smoker alcohol intake frequency: a few times a week Substance Use Type: does not use Exam Initial Vital Signs Initial Vital Signs: Vital Signs Temperature 98.1 F 05/16/20 21:00 Pulse Rate 74 05/16/20 21:00 Respiratory Rate 15 05/16/20 21:00 Blood Pressure 140/68 05/16/20 21:00 Pulse Oximetry 96 05/16/20 21:00 GENERAL: Well-appearing 79-year-old female who is quite anxious and ready to leave after waiting in the emergency department for number of hours and in no acute distress. HEENT: Head atraumatic,EOMI, pupils reactive, face symmetric, moist mucous membranes CARDIOVASCULAR: Regular rate and rhythm without murmurs, rubs or gallops. RESPIRATORY: Breath sounds equal bilaterally, no wheezes rales or rhonchi. ABDOMEN: Soft, tender left upper quadrant no guarding or rebound EXTREMITIES: Normal range of motion, no clubbing or edema. Neurovascularly intact NEUROLOGICAL: Alert and oriented x4.Normal gait and speech. Cranial nerves II through XII grossly intact. SKIN: Warm, dry, no laceration, no petechiae, no rashes or lesions. Course Orders Ordered: Discontinued Medications Acetaminophen (Acetaminophen 325 Mg Tablet) 975 mg PO NOW ONE Stop: 05/17/20 01:11 Last Admin: 05/17/20 01:25 Dose: 975 mg Documented by: DAYANA Diphenhydramine HCl (Diphenhydramine 50 Mg/Ml Vial) 25 mg IV NOW ONE Stop: 05/17/20 01:36 Methylprednisolone (Methylprednisolone 125 Mg/2 Ml Vial) 125 mg IV NOW ONE Stop: 05/17/20 01:36 Vital Signs Vital signs: Vital Signs - 8 hr 05/16/20 21:00 Temperature 98.1 F Pulse Rate 74 Respiratory Rate 15 Blood Pressure 140/68 Pulse Oximetry 96 MDM - Abdominal Pain Lab Data Attestation: I reviewed the patient's lab results. Result diagrams: 05/16/20 21:15 05/16/20 21:15 Labs: Lab Results 05/16/20 05/16/20 05/16/20 Range/Units 21:15 21:15 21:15 WBC 18.6 H D (4.5-11.0) X10^3/uL RBC 4.00 (4.0-5.2) X10^6/uL Hgb 12.5 (12.0-16.0) g/dL Hct 37.3 (36-46) % MCV 93.3 (80-100) fL MCH 31.2 (26-34) PG MCHC 33.5 (30-36) % RDW 16.7 H (11.6-14.8) % Plt Count 439 H (150-400) X10^3/uL Neut % (Auto) 90.2 H D (50-75) % Lymph % (Auto) 4.7 L D (25-40) % [place] % (Auto) 4.4 (3-14) % Eos % (Auto) 0.1 L (2-4) % Baso % (Auto) 0.6 (0-2) % Neut # (Auto) 88354 H (1911-1402) /uL Lymph # (Auto) 900 L (3322-1418) /uL [place] # (Auto) 800 (0-900) /uL Eos # (Auto) 0 (0-450) /uL Baso # (Auto) 100 (0-100) /uL PT 10.6 (10.1-12.7) SECONDS INR 0.9 (0.9-1.3) APTT 31 (26.4-36.2) SECONDS Sodium 129 L (137-145) mmol/L Potassium 3.9 (3.4-5.1) mmol/L Chloride 95 L (98-107) mmol/L Carbon Dioxide 26 (22-32) mmol/L BUN 16 (7-17) mg/dL Creatinine 0.86 (0.52-1.04) mg/dL Estimated GFR > 60.0 (>60) mL/min BUN/Creatinine Ratio 18.6 (6-22) Glucose 164 H (80-110) mg/dL Calcium 9.5 (8.4-10.2) mg/dL Total Bilirubin 0.2 (0.2-1.3) mg/dL AST 26 (14-36) IU/L ALT 16 (<35) IU/L Alkaline Phosphatase 64 (38-126) U/L Total Protein 7.0 (6.3-8.2) g/dL Albumin 4.1 (3.5-5.0) g/dL Globulin 2.9 (1.7-4.1) g/dL Albumin/Globulin Ratio 1.4 (1.0-2.8) Lipase 63 (23-300) U/L Point of care testing: Urine Dip Bedside Urine Glucose Negative Bedside Urine Bilirubin - Negative Bedside Urine Ketone - Negative Urine Specific [place] 1.030 Bedside Urine Occult Blood + Bedside Urine pH 6.0 Bedside Urine Protein - Negative Bedside Urine Urobilinogen - Negative Bedside Urine Nitrite - Negative Bedside Urine Leukocytes - Negative Esterase Imaging Data CT scan - abdomen/pelvis: Radiologist's Impression: Preliminary report moderate to large stool throughout the colon without obstruction colitis diverticulitis ECG Data Attestation: I personally reviewed and interpreted this ECG as follows: Prior ECG tracings: available for review Interpretation: Normal sinus rhythm rate 75 p.r. interval 138 QRS [address] changes no T-wave inversion similar to previous EKG MDM Narrative Medical decision making narrative: Patient is not short of breath or hypoxic. She is concerned about a blood clot but clinically I do not think she has 1. She is presenting with left upper quadrant pain. I ordered it with contrast initially however she is quite adamant as he cannot have IV contrast. She says it made her heart do funny things and she was told never to have it again. She was offered pre treatment and a phototypesetting equipment monitor during her CT scan however at this time she opted to have no IV contrast knowing that it will not detect a blood clot. Patient blood work overall feels improvement from previous Discharge Plan Departure Patient Disposition: Home Clinical Impression: Abdominal pain Qualifiers: Abdominal location: left upper quadrant Qualified Code(s): R10.12 - Left upper quadrant pain Instructions: DI for Abdominal Pain-Adult Activity Restrictions/Additional Instructions: *You have been diagnosed with abdominal pain *What to do: Your CT scan does show a lot of stool. Without IV contrast unable is to detect if you have a blood clot. *Continue to take medications as directed *Follow up with your primary care provider in 2-3 days *Return to ER if you should have including shortness of breath, increasing pain, chest pain or any new, worsening or concerning symptoms Prescriptions: No Action metoprolol succinate [Toprol XL] 25 MG tablet extended release 24 hr 12.5 mg PO QDAY Qty: 0 RF: 0 polyethylene glycol 3350 [Miralax] 17 GM powder in packet 17 gm PO BEDTIME PRN (Reason: Constipation) Qty: 0 RF: 0 conjugated estrogens 0.625 mg/gram cream 0.625 mg vaginal 2XW Qty: 30 RF: 3 multivitamin Tablet 1 tab PO DAILY RF: 0 ascorbic acid (vitamin C) [Vitamin C] 500 mg Tablet 500 mg DAILY RF: 0 vitamin B complex Tablet 1 tab PO DAILY RF: 0 elderberry fruit 200 mg Capsule 200 mg PO DAILY RF: 0 cholecalciferol (vitamin D3) [Vitamin D3] 50 mcg (2,000 unit) Capsule 50 mcg PO DAILY RF: 0 vitamin M32-sjdmi acid 0.5-1 mg Tablet 1 tab PO DAILY RF: 0 prednisone 20 mg tablet 20 mg PO DAILY RF: 0 prochlorperazine maleate [Compazine] 5 mg Tablet 5 mg PO Q6H PRN (Reason: Nausea) Qty: 20 RF: 0 Doptelet (10 tab pack) 20 mg tablet 20 mg PO DAILY Qty: 14 RF: 0 lorazepam 0.5 mg tablet 0.5 mg PO BEDTIME RF: 0 lisinopril 10 mg tablet 10 mg PO QAM RF: 0 Referrals: Henny Dinh PA-C [Primary Care Provider] -
--- NOTE | 2020-05-17 01:10 | DI.CT.S_ITS ---
PROCEDURE: CT ABDOMEN PELVIS WO CON INDICATIONS: Left upper quadrant pain TECHNIQUE: Noncontrast 5 mm thick sections acquired from the diaphragms to the symphysis. 5 mm thick coronal and sagittal reformats were then performed. For radiation dose reduction, the following was used: automated exposure control, adjustment of mA and/or kV according to patient size. COMPARISON: [facility], CT, KIDNEY/ URETER/BLADDER, 02/02/2011, 10:30. [facility], CT, CT CHEST ABD PEL WO CON, 03/03/2020, 11:49. FINDINGS: Image quality: Excellent. Lung bases: Tiny lung nodules at lung bases are unchanged. Heart size is normal. There is a small hiatal hernia. Urinary system: Both kidneys are normal in size. No kidney stones. No hydronephrosis or perinephric fat stranding. Both ureters appear non-dilated throughout their expected courses. Bladder wall thickness is normal; no calcified bladder stones. Other solid organs: Liver is normal in size. Gallbladder is normal . Pancreas is normal in contours. Spleen is normal in size. No adrenal nodules. Peritoneum and bowel: Unenhanced bowel loops demonstrate normal wall thickness and caliber. There are scattered colonic diverticula. No CT findings to suggest acute diverticulitis. A large amount of stool in colon. No free fluid or air. Nodes and vessels: No retroperitoneal or mesenteric adenopathy by size criteria. Aorta and inferior vena cava are normal in caliber. Abdominal wall: No ventral hernias. Pelvis: No free pelvic fluid. No inguinal hernias or adenopathy. Bones: No suspicious bony lesions. No vertebral body compression fractures. Scoliosis and degenerative changes in lumbar spine. IMPRESSION: 1. No acute abnormality in abdomen or pelvis. 2. Diverticulosis without diverticulitis. 3. A large amount of stool in colon. Dictated by: Theresa Ochoa M.D. on 05/17/2020 at 9:48 Transcribed by: LOLIS on 05/17/2020 at 9:48 Approved by: Theresa Ochoa M.D. on 05/17/2020 at 18:55
--- NOTE | 2020-05-17 01:18 | DI.RAD.S_ITS ---
PROCEDURE: XR CHEST 1V INDICATIONS: chest pain TECHNIQUE: One view of the chest was acquired. COMPARISON: [facility], CR, XR CHEST 1V, 04/24/2020, 7:38. FINDINGS: Surgical changes and devices: None. Lungs and pleura: Lungs are clear. No pleural effusions or pneumothorax. Mediastinum: Mediastinal contours appear normal. Heart size is normal. Bones and chest wall: No suspicious bony lesions. Severe convex left thoracolumbar spine scoliosis. Overlying soft tissues appear unremarkable. IMPRESSION: No acute cardiopulmonary disease process. Dictated by: Hanny Root MD, PhD on 05/17/2020 at 8:23 Approved by: Hanny Root MD, PhD on 05/17/2020 at 8:23
[2020-05-17] MEDS: ACETAMINOPHEN 325 MG TABLET 975 MG PO (01:25)
== END 2020-05-17 03:29 | disposition home or self-care (01) ==
PROVIDERS: Emergency Provider Emergency Medicine; PCP Physician Assistant
DX: R10.12 Left upper quadrant pain (principal)
CPT/HCPCS: 36415; 71045; 74176; 80053; 81003; 83690; 85025; 85610; 85730; 93005; 99283; 99284

== ENCOUNTER → 2020-06-12 06:48 | Outpatient (CLI) | payer MEDICARE, OTHER, SELFPAY ==
[2020-04-24 11:11] VITALS: BMI 20.5
[2020-06-12 07:16] LABS: Add Manual Diff / Slide Review NO; Basophils Absolute Auto 400 /uL (0-100); Basophils Percent Auto 3.1 % (0-2); Eosinophils Absolute Auto 300 /uL (0-450); Eosinophils Percent Auto 2.2 % (2-4); Hematocrit 39.5 % (36-46); Hemoglobin 13.5 g/dL (12.0-16.0); Lymphocytes Absolute Auto 4000 /uL (1100-4500); Mean Corpuscular HGB Conc 34.2 % (30-36); Mean Corpuscular Volume 93.4 fL (80-100); Monocytes Absolute Auto 800 /uL (0-900); Monocytes Percent Auto 7.2 % (3-14); Neutrophils Absolute Auto 6200 /uL (1500-7000); Neutrophils Percent Auto 53.5 % (50-75); Platelet Count 683 X10^3/uL (150-400); Red Blood Cell Count 4.23 X10^6/uL (4.0-5.2); Red Cell Distribution Width 15.7 % (11.6-14.8); White Blood Cell Count 11.7 X10^3/uL (4.5-11.0)
== END ==
PROVIDERS: PCP Physician Assistant; Referring Provider Internal Medicine; Visit Provider Internal Medicine
DX: Z86.2 Personal history of diseases of the blood and blood-forming organs and certain disorders involving the immune mechanism (principal)
CPT/HCPCS: 36415; 85025

== ENCOUNTER → 2020-06-14 06:37 | Outpatient (CLI) | payer MEDICARE, OTHER, SELFPAY ==
[2020-04-24 11:11] VITALS: BMI 20.5
[2020-06-14 07:19] LABS: Appearance Urine UA CLEAR; Bilirubin Urine UA NEGATIVE (NEGATIVE); Color Urine UA YELLOW; Glucose Urine UA NEGATIVE (Negative); Ketones Urine UA NEGATIVE (NEGATIVE); Leukocyte Esterase Urine UA NEGATIVE (NEGATIVE); Nitrite Urine UA NEGATIVE (Negative); Occult Blood Urine UA 2+ (Negative); Protein Urine UA NEGATIVE (Negative); Specific Gravity Urine UA 1.015 (1.000-1.035); Urobilinogen Urine UA 0.2 E.U./dL (0.2)
[2020-06-14 07:21] LABS: Add Manual Diff / Slide Review NO; Basophils Absolute Auto 400 /uL (0-100); Eosinophils Absolute Auto 400 /uL (0-450); Eosinophils Percent Auto 3.4 % (2-4); Hematocrit 39.9 % (36-46); Hemoglobin 13.3 g/dL (12.0-16.0); Lymphocytes Absolute Auto 4200 /uL (1100-4500); Lymphocytes Percent Auto 32.2 % (25-40); Mean Corpuscular HGB Conc 33.4 % (30-36); Mean Corpuscular Hemoglobin 31.6 PG (26-34); Mean Corpuscular Volume 94.4 fL (80-100); Monocytes Absolute Auto 900 /uL (0-900); Monocytes Percent Auto 7.2 % (3-14); Neutrophils Absolute Auto 7100 /uL (1500-7000); Neutrophils Percent Auto 54.2 % (50-75); Platelet Count 293 X10^3/uL (150-400); Red Blood Cell Count 4.23 X10^6/uL (4.0-5.2); Red Cell Distribution Width 15.8 % (11.6-14.8)
[2020-06-14 07:59] LABS: pH Urine UA 6.5 (4.5-8.0)
[2020-06-14 08:11] LABS: Bacteria Urine Occasional (0-1); Culture Indicated Urine Cult Not Indicated; RBC Urine 1-5/HPF (0-5/HPF); Squamous Epithelial Cell Urine 5-10 /HPF (0-5/HPF); WBC Urine 0-1/HPF (0-5/HPF)
== END ==
PROVIDERS: Internal Medicine; PCP Physician Assistant; Referring Provider Obstetrics & Gynecology; Visit Provider Obstetrics & Gynecology
DX: R39.9 Unspecified symptoms and signs involving the genitourinary system (principal); Z86.2 Personal history of diseases of the blood and blood-forming organs and certain disorders involving the immune mechanism
CPT/HCPCS: 36415; 81001; 85025

== ENCOUNTER 2020-06-18 13:21 | Emergency (ER) | payer MEDICARE, OTHER, SELFPAY ==
[2020-04-24 11:11] VITALS: BMI 20.5
[2020-06-18 13:30] VITALS: BP 143/82; PULSE 87; RESP 14; TEMP 36.3; O2SAT 96; BMI 20.7
[2020-06-18 14:05] LABS: Add Manual Diff / Slide Review NO; Basophils Absolute Auto 100 /uL (0-100); Basophils Percent Auto 0.4 % (0-2); Eosinophils Absolute Auto 0 /uL (0-450); Eosinophils Percent Auto 0.3 % (2-4); Hematocrit 39.7 % (36-46); Hemoglobin 13.3 g/dL (12.0-16.0); Lymphocytes Absolute Auto 1000 /uL (1100-4500); Lymphocytes Percent Auto 7.9 % (25-40); Mean Corpuscular HGB Conc 33.4 % (30-36); Mean Corpuscular Hemoglobin 31.1 PG (26-34); Mean Corpuscular Volume 93.1 fL (80-100); Monocytes Absolute Auto 300 /uL (0-900); Monocytes Percent Auto 2.3 % (3-14); Neutrophils Absolute Auto 11700 /uL (1500-7000); Neutrophils Percent Auto 89.1 % (50-75); Red Blood Cell Count 4.26 X10^6/uL (4.0-5.2); Red Cell Distribution Width 15.4 % (11.6-14.8); White Blood Cell Count 13.1 X10^3/uL (4.5-11.0)
[2020-06-18 14:11] LABS: Albumin 4.2 g/dL (3.5-5.0); Albumin Globulin Ratio 1.5 (1.0-2.8); Alkaline Phosphatase 61 U/L (38-126); Aspartate Aminotransferase 23 IU/L (14-36); BUN Creatinine Ratio 18.4 (6-22); Bilirubin Total 0.4 mg/dL (0.2-1.3); Blood Urea Nitrogen 14 mg/dL (7-17); Calcium 9.7 mg/dL (8.4-10.2); Carbon Dioxide 24 mmol/L (22-32); Chloride 99 mmol/L (98-107); Estimated Glomerular Filt Rate > 60.0 mL/min (>60); Globulin 2.8 g/dL (1.7-4.1); Glucose 216 mg/dL (80-110); HEMOLYSIS < 15 (0-50); Potassium 4.1 mmol/L (3.4-5.1); Sodium 132 mmol/L (137-145)
[2020-06-18 14:17] LABS: Alanine Aminotransferase 18 IU/L (<35)
[2020-06-18 14:25] LABS: Platelet Count 4 X10^3/uL (150-400)
[2020-06-18 14:26] LABS: Anisocytosis 1+
--- NOTE | 2020-06-18 14:26 | DI.CT.S_ITS ---
PROCEDURE: CT HEAD/BRAIN WO CON INDICATIONS: Thrombocytopenia TECHNIQUE: Noncontrast 4.5 mm thick angled axial sections acquired from the foramen magnum to the vertex, with coronal and sagittal reformats. For radiation dose reduction, the following was used: automated exposure control, adjustment of mA and/or kV according to patient size. COMPARISON: None. FINDINGS: Image quality: Excellent. CSF spaces: Basal cisterns are patent. No extra-axial fluid collections. Ventricles are normal in size and shape. Brain: No midline shift. No intracranial masses or hemorrhage. Moody-white matter interface is normal. Skull and face: Calvarium and visualized facial bones are intact, without suspicious lesions. Sinuses: Visualized sinuses and mastoids are clear. IMPRESSION: No acute intracranial finding. Dictated by: Ted Ramos M.D. on 06/18/2020 at 14:46 Approved by: Ted Ramos M.D. on 06/18/2020 at 14:47
--- NOTE | 2020-06-18 14:35 | ED_ITS ---
HPI - Recheck/Abnormal Lab/Rx General Chief Complaint: Recheck/Abnormal Lab/Rx Stated Complaint: IBIG Time Seen by Provider: 06/18/20 14:30 Source: patient Mode of arrival: Ambulatory Limitations: no limitations History of Present Illness HPI narrative: Patient is a 79-year-old female with history of thrombocytopenia who frequently gets IVIG presenting with thrombocytopenia. She actually had blood work checked 3 days ago when she had platelets of 10 she started noticing some petechiae no active bleeding and had platelets checked today and found out they were too so she came to the emergency department after calling her oncologist. She continues to deny deny any active bleeding no headache no neurologic deficits. MD complaint: abnormal lab Associated symptoms: none Related Data Home Medications Medication Instructions Recorded Confirmed metoprolol succinate [Toprol XL] 12.5 mg PO QDAY #0 10/12/11 05/03/20 polyethylene glycol 3350 [Miralax] 17 gm PO BEDTIME PRN #0 05/26/17 05/03/20 lisinopril 10 mg PO QAM 12/20/19 05/03/20 lorazepam 0.5 mg PO BEDTIME 12/20/19 05/03/20 ascorbic acid (vitamin C) [Vitamin 500 mg DAILY 02/08/20 05/03/20 C] cholecalciferol (vitamin D3) 50 mcg PO DAILY 02/08/20 05/03/20 [Vitamin D3] elderberry fruit 200 mg PO DAILY 02/08/20 05/03/20 multivitamin 1 tab PO DAILY 02/08/20 05/03/20 vitamin B complex 1 tab PO DAILY 02/08/20 05/03/20 vitamin F75-[id number] acid 1 tab PO DAILY 04/05/20 04/24/20 prednisone 20 mg PO DAILY 05/03/20 05/03/20 Previous Rx's Medication Instructions Recorded Doptelet (10 tab pack) 20 mg PO DAILY #14 tab 02/28/20 conjugated estrogens 0.625 mg/gram 0.625 mg VAGINAL 2XW #30 g 03/14/20 vaginal cream prochlorperazine maleate 5 mg PO Q6H PRN #20 tab 05/17/20 [Compazine] Allergies Allergy/AdvReac Type Severity Reaction Status Date / Time latex Allergy Mild LOCAL RASH Verified 05/16/20 21:05 Penicillins Allergy Mild CHILDHOOD Verified 05/16/20 21:05 Sulfa (Sulfonamide Allergy Mild SOMETHING Verified 05/16/20 21:05 Antibiotics) TO DO WITH BLADDER OR KIDNEY'S?? iodine AdvReac Intermediate RAPID Verified 05/16/20 21:05 HEART RATE (IV CONTRAST) Review of Systems Review of Systems ROS Unobtainable: All systems reviewed & are unremarkable except as noted in HPI and below Constitutional Constitutional: Denies chills, Denies fever(s), Denies lethargy and Denies weakness ENT Ears, Nose, Mouth, and Throat: Denies change in voice, Denies vertigo, Denies dizziness, Denies neck pain and Denies sore throat Cardiovascular Cardiovascular: Denies chest pain, Denies syncope, Denies irregular heart rhythm, Denies lightheadedness, Denies palpitations, Denies dyspnea, Denies dysp lizy on exertion and Denies orthopnea Respiratory Respiratory: Denies cough, Denies dyspnea, Denies dyspnea on exertion and Denies wheezing Gastrointestinal Gastrointestinal: Denies abdominal pain, Denies change in bowel habits, Denies diarrhea, Denies nausea and Denies vomiting Musculoskeletal Musculoskeletal: Denies back pain, Denies myalgias and Denies neck pain Integumentary/Breasts Skin/Breast: Reports as per HPI Neurologic Neurologic: Denies vertigo, Denies dizziness, Denies syncope and Denies weakness Endocrine Endocrine: Denies palpitations Allergic/Immunologic Allergic/Immunologic: Denies wheezing Patient History Medical History (Updated 06/18/20 @ 17:44 by Precious Cox DO) Anxiety Atrial flutter Chronic steroid use History of ITP Hypertension Microscopic hematuria Osteoporosis Scoliosis Surgical History History of splenectomy History of tonsillectomy Status post hysterectomy Family History Father Cancer Mother Bleeding disorder Brother Brain cancer Social History marital status: household members: spouse lives independently: Yes Smoking Status: Never smoker alcohol intake: current Smoking Status: Never smoker alcohol intake frequency: a few times a week Substance Use Type: does not use Exam Initial Vital Signs Initial Vital Signs: Vital Signs Temperature 97.3 F L 06/18/20 13:30 Pulse Rate 87 06/18/20 13:30 Respiratory Rate 14 06/18/20 13:30 Blood Pressure 143/82 H 06/18/20 13:30 Pulse Oximetry 96 06/18/20 13:30 GENERAL: Alert anxious 79-year-old female HEENT: Head atraumatic,EOMI, pupils reactive, face symmetric, moist mucous membranes CARDIOVASCULAR: Regular rate and rhythm without murmurs, rubs or gallops. RESPIRATORY: Breath sounds equal bilaterally, no wheezes rales or rhonchi. ABDOMEN: Soft, nontender. Normoactive bowel sounds all 4 quadrants. No guarding or rebound. EXTREMITIES: Normal range of motion, no clubbing or edema. Neurovascularly intact NEUROLOGICAL: Alert and oriented x4.Normal gait and speech. SKIN: Minimal petechiae noted on the lower extremity right lower leg has chronic skin changes, forehead noted to have hemangioma like area the patient says is old Course Orders Ordered: ED Orders 06/18/20 13:48 Complete Blood Count AUTO DIFF Stat Comprehensive Metabolic Panel Stat 06/18/20 14:26 CT head/brain wo con Stat Discontinued Medications Acetaminophen (Acetaminophen 325 Mg Tablet) 650 mg PO NOW ONE Stop: 06/18/20 14:34 Last Admin: 06/18/20 14:51 Dose: 650 mg Documented by: ENRICO Diphenhydramine HCl (Diphenhydramine 25 Mg Tablet) 25 mg PO NOW ONE Stop: 06/18/20 14:34 Last Admin: 06/18/20 14:54 Dose: 25 mg Documented by: ENRICO Sodium Chloride (Normal Saline 0.9%) 1,000 mls @ 150 mls/hr IV CONT MADALYN Last Infusion: 06/18/20 17:30 Dose: 150 mls/hr Documented by: Infusion: 06/18/20 15:29 Dose: 0 mls/hr Documented by: Admin: 06/18/20 15:24 Dose: 150 mls/hr Documented by: ENRICO Immune Globulin (Immune Globulin 10% (Ivig) Vial) 30 gm IV NOW ONE Stop: 06/18/20 14:28 Last Admin: 06/18/20 15:25 Dose: 30 gm Documented by: ENRICO Vital Signs Vital signs: Vital Signs - 8 hr 06/18/20 13:30 06/18/20 15:20 06/18/20 15:30 Temperature 97.3 F L Pulse Rate 87 75 72 Respiratory Rate 14 Blood Pressure 143/82 H Pulse Oximetry 96 95 93 06/18/20 16:00 06/18/20 16:01 Temperature Pulse Rate 76 Respiratory Rate Blood Pressure 179/85 H Pulse Oximetry 92 96 MDM - Recheck/Abnormal Lab/Rx Lab Data Attestation: I reviewed the patient's lab results. Result diagrams: 06/18/20 13:48 06/18/20 13:48 Labs: Lab Results 06/18/20 06/18/20 Range/Units 13:48 13:48 WBC 13.1 H (4.5-11.0) X10^3/uL RBC 4.26 (4.0-5.2) X10^6/uL Hgb 13.3 (12.0-16.0) g/dL Hct 39.7 (36-46) % MCV 93.1 (80-100) fL MCH 31.1 (26-34) PG MCHC 33.4 (30-36) % RDW 15.4 H (11.6-14.8) % Plt Count 4 L* (150-400) X10^3/uL Neut % (Auto) 89.1 H (50-75) % Lymph % (Auto) 7.9 L (25-40) % [place] % (Auto) 2.3 L (3-14) % Eos % (Auto) 0.3 L (2-4) % Baso % (Auto) 0.4 (0-2) % Neut # (Auto) 93044 H (0573-6540) /uL Lymph # (Auto) 1000 L (4465-4903) /uL [place] # (Auto) 300 (0-900) /uL Eos # (Auto) 0 (0-450) /uL Baso # (Auto) 100 (0-100) /uL RBC Morphology See below Anisocytosis 1+ H Sodium 132 L (137-145) mmol/L Potassium 4.1 (3.4-5.1) mmol/L Chloride 99 (98-107) mmol/L Carbon Dioxide 24 (22-32) mmol/L BUN 14 (7-17) mg/dL Creatinine 0.76 (0.52-1.04) mg/dL Estimated GFR > 60.0 (>60) mL/min BUN/Creatinine Ratio 18.4 (6-22) Glucose 216 H (80-110) mg/dL Calcium 9.7 (8.4-10.2) mg/dL Total Bilirubin 0.4 (0.2-1.3) mg/dL AST 23 (14-36) IU/L ALT 18 (<35) IU/L Alkaline Phosphatase 61 (38-126) U/L Total Protein 7.0 (6.3-8.2) g/dL Albumin 4.2 (3.5-5.0) g/dL Globulin 2.8 (1.7-4.1) g/dL Albumin/Globulin Ratio 1.5 (1.0-2.8) Imaging Data CT scan - head: Radiologist's Impression: PROCEDURE: CT HEAD/BRAIN WO CON INDICATIONS: Thrombocytopenia TECHNIQUE: Noncontrast 4.5 mm thick angled axial sections acquired from the foramen magnum to the vertex, with coronal and sagittal reformats. For radiation dose reduction, the following was used: automated exposure control, adjustment of mA and/or kV according to patient size. COMPARISON: None. FINDINGS: Image quality: Excellent. CSF spaces: Basal cisterns are patent. No extra-axial fluid collections. Ventricles are normal in size and shape. Brain: No midline shift. No intracranial masses or hemorrhage. Moody-white matter interface is normal. Skull and face: Calvarium and visualized facial bones are intact, without suspicious lesions. Sinuses: Visualized sinuses and mastoids are clear. IMPRESSION: No acute intracranial finding. Dictated by: Ted Ramos M.D. on 06/18/2020 at 14:46 Approved by: Ted Ramos M.D. on 06/18/2020 at 14:47 [facility] Narrative Medical decision making narrative: I discussed case with Dr. Bill was updated patient's platelets now of for who states it is within the range agrees still with 30gm of IV IG he states that she has responded well to that in the past. She is already maxed out on all other medications. No active bleeding does not need platelets. Discharge Plan Departure Patient Disposition: Home Clinical Impression: Thrombocytopenia Instructions: Immune Thrombocytopenia Purpura Activity Restrictions/Additional Instructions: *You have been diagnosed with thrombocytopenia *What to do: Please follow-up with your oncologist *Continue to take medications as directed *Follow up with your primary care provider in 2-3 days *Return to ER if you should have any bleeding, petechiae, or any new, worsening or concerning symptoms Prescriptions: No Action metoprolol succinate [Toprol XL] 25 MG tablet extended release 24 hr 12.5 mg PO QDAY Qty: 0 RF: 0 polyethylene glycol 3350 [Miralax] 17 GM powder in packet 17 gm PO BEDTIME PRN (Reason: Constipation) Qty: 0 RF: 0 conjugated estrogens 0.625 mg/gram cream 0.625 mg vaginal 2XW Qty: 30 RF: 3 multivitamin Tablet 1 tab PO DAILY RF: 0 ascorbic acid (vitamin C) [Vitamin C] 500 mg Tablet 500 mg DAILY RF: 0 vitamin B complex Tablet 1 tab PO DAILY RF: 0 elderberry fruit 200 mg Capsule 200 mg PO DAILY RF: 0 cholecalciferol (vitamin D3) [Vitamin D3] 50 mcg (2,000 unit) Capsule 50 mcg PO DAILY RF: 0 vitamin [id number] acid 0.5-1 mg Tablet 1 tab PO DAILY RF: 0 prednisone 20 mg tablet 20 mg PO DAILY RF: 0 prochlorperazine maleate [Compazine] 5 mg Tablet 5 mg PO Q6H PRN (Reason: Nausea) Qty: 20 RF: 0 Doptelet (10 tab pack) 20 mg tablet 20 mg PO DAILY Qty: 14 RF: 0 lorazepam 0.5 mg tablet 0.5 mg PO BEDTIME RF: 0 lisinopril 10 mg tablet 10 mg PO QAM RF: 0 Referrals: Henny Dinh PA-C [Primary Care Provider] -
[2020-06-18] MEDS: ACETAMINOPHEN 325 MG TABLET 650 MG PO (14:51)
[2020-06-18] MEDS: diphenhydrAMINE 25 MG TABLET PO (14:54)
[2020-06-18 15:20] VITALS: PULSE 75; O2SAT 95
[2020-06-18] MEDS: SODIUM CHLORIDE 0.9% 1,000 ML 150 ML IV (15:24)
[2020-06-18] MEDS: IMMUNE GLOBULIN 10% IV (15:25)
[2020-06-18 15:30] VITALS: PULSE 72; O2SAT 93
[2020-06-18 16:00] VITALS: O2SAT 92
[2020-06-18 16:01] VITALS: BP 179/85; PULSE 76; O2SAT 96
== END 2020-06-18 17:54 | disposition home or self-care (01) ==
PROVIDERS: Emergency Provider Emergency Medicine; PCP Physician Assistant; Referring Provider Internal Medicine
DX: D69.6 Thrombocytopenia, unspecified (principal); D69.3 Immune thrombocytopenic purpura; R79.9 Abnormal finding of blood chemistry, unspecified
CPT/HCPCS: 36415; 70450; 80053; 85025; 96374; 99284; J1561

== ENCOUNTER → 2020-06-23 06:37 | Outpatient (CLI) | payer MEDICARE, OTHER, SELFPAY ==
[2020-04-24 11:11] VITALS: BMI 20.5
[2020-06-23 07:35] LABS: Add Manual Diff / Slide Review NO; Basophils Absolute Auto 0 /uL (0-100); Basophils Percent Auto 0.2 % (0-2); Eosinophils Absolute Auto 200 /uL (0-450); Eosinophils Percent Auto 1.2 % (2-4); Hematocrit 38.5 % (36-46); Hemoglobin 12.9 g/dL (12.0-16.0); Lymphocytes Absolute Auto 2700 /uL (1100-4500); Lymphocytes Percent Auto 14.3 % (25-40); Mean Corpuscular HGB Conc 33.6 % (30-36); Mean Corpuscular Hemoglobin 31.6 PG (26-34); Monocytes Absolute Auto 1400 /uL (0-900); Monocytes Percent Auto 7.2 % (3-14); Neutrophils Absolute Auto 14800 /uL (1500-7000); Neutrophils Percent Auto 77.1 % (50-75); Red Cell Distribution Width 15.9 % (11.6-14.8); White Blood Cell Count 19.2 X10^3/uL (4.5-11.0)
[2020-06-23 08:30] LABS: Platelet Count 31 X10^3/uL (150-400)
[2020-06-23 08:31] LABS: RBC Morphology Normal Morphology
== END ==
PROVIDERS: PCP Physician Assistant; Referring Provider Internal Medicine Hematology; Visit Provider Internal Medicine Hematology
DX: D69.3 Immune thrombocytopenic purpura (principal); Z86.2 Personal history of diseases of the blood and blood-forming organs and certain disorders involving the immune mechanism
CPT/HCPCS: 36415; 85025

== ENCOUNTER → 2020-06-26 06:36 | Outpatient (CLI) | payer MEDICARE, OTHER, SELFPAY ==
[2020-04-24 11:11] VITALS: BMI 20.5
[2020-06-26 07:18] LABS: Add Manual Diff / Slide Review NO; Basophils Absolute Auto 200 /uL (0-100); Basophils Percent Auto 0.8 % (0-2); Eosinophils Absolute Auto 500 /uL (0-450); Eosinophils Percent Auto 2.4 % (2-4); Hematocrit 39.7 % (36-46); Hemoglobin 13.2 g/dL (12.0-16.0); Lymphocytes Absolute Auto 3600 /uL (1100-4500); Lymphocytes Percent Auto 17.4 % (25-40); Mean Corpuscular HGB Conc 33.3 % (30-36); Mean Corpuscular Hemoglobin 31.3 PG (26-34); Mean Corpuscular Volume 94.2 fL (80-100); Monocytes Absolute Auto 1300 /uL (0-900); Monocytes Percent Auto 6.5 % (3-14); Neutrophils Absolute Auto 15200 /uL (1500-7000); Neutrophils Percent Auto 72.9 % (50-75); Platelet Count 341 X10^3/uL (150-400); Red Blood Cell Count 4.22 X10^6/uL (4.0-5.2); White Blood Cell Count 20.8 X10^3/uL (4.5-11.0)
== END ==
PROVIDERS: PCP Physician Assistant; Referring Provider Internal Medicine; Visit Provider Internal Medicine Hematology
DX: D69.3 Immune thrombocytopenic purpura (principal)
CPT/HCPCS: 36415; 85025

== ENCOUNTER → 2020-06-28 06:35 | Outpatient (CLI) | payer MEDICARE, OTHER, SELFPAY ==
[2020-04-24 11:11] VITALS: BMI 20.5
[2020-06-28 07:23] LABS: Add Manual Diff / Slide Review NO; Basophils Absolute Auto 200 /uL (0-100); Eosinophils Absolute Auto 300 /uL (0-450); Eosinophils Percent Auto 1.7 % (2-4); Hematocrit 38.4 % (36-46); Hemoglobin 12.7 g/dL (12.0-16.0); Lymphocytes Absolute Auto 2700 /uL (1100-4500); Lymphocytes Percent Auto 14.9 % (25-40); Mean Corpuscular HGB Conc 33.1 % (30-36); Mean Corpuscular Hemoglobin 31.1 PG (26-34); Mean Corpuscular Volume 94.1 fL (80-100); Monocytes Absolute Auto 1300 /uL (0-900); Monocytes Percent Auto 7.1 % (3-14); Neutrophils Absolute Auto 13900 /uL (1500-7000); Neutrophils Percent Auto 75.3 % (50-75); Platelet Count 601 X10^3/uL (150-400); Red Blood Cell Count 4.08 X10^6/uL (4.0-5.2); White Blood Cell Count 18.4 X10^3/uL (4.5-11.0)
== END ==
PROVIDERS: PCP Physician Assistant; Referring Provider Internal Medicine; Visit Provider Internal Medicine
DX: D69.3 Immune thrombocytopenic purpura (principal); Z86.2 Personal history of diseases of the blood and blood-forming organs and certain disorders involving the immune mechanism
CPT/HCPCS: 85025

== ENCOUNTER → 2020-06-29 06:31 | Outpatient (CLI) | payer MEDICARE, OTHER, SELFPAY ==
[2020-04-24 11:11] VITALS: BMI 20.5
[2020-06-29 07:28] LABS: Add Manual Diff / Slide Review NO; Basophils Absolute Auto 100 /uL (0-100); Basophils Percent Auto 0.8 % (0-2); Eosinophils Absolute Auto 300 /uL (0-450); Eosinophils Percent Auto 1.8 % (2-4); Hematocrit 39.1 % (36-46); Hemoglobin 12.9 g/dL (12.0-16.0); Lymphocytes Absolute Auto 3300 /uL (1100-4500); Mean Corpuscular HGB Conc 33.1 % (30-36); Mean Corpuscular Hemoglobin 31.2 PG (26-34); Mean Corpuscular Volume 94.4 fL (80-100); Monocytes Absolute Auto 1200 /uL (0-900); Monocytes Percent Auto 6.8 % (3-14); Neutrophils Absolute Auto 12600 /uL (1500-7000); Neutrophils Percent Auto 71.6 % (50-75); Platelet Count 737 X10^3/uL (150-400); Red Blood Cell Count 4.14 X10^6/uL (4.0-5.2); White Blood Cell Count 17.6 X10^3/uL (4.5-11.0)
== END ==
PROVIDERS: PCP Physician Assistant; Referring Provider Midwife; Visit Provider Midwife
DX: D69.3 Immune thrombocytopenic purpura (principal)
CPT/HCPCS: 36415; 85025

== ENCOUNTER → 2020-06-30 06:32 | Outpatient (CLI) | payer MEDICARE, OTHER, SELFPAY ==
[2020-04-24 11:11] VITALS: BMI 20.5
[2020-06-30 08:03] LABS: Add Manual Diff / Slide Review NO; Basophils Absolute Auto 100 /uL (0-100); Basophils Percent Auto 0.9 % (0-2); Eosinophils Absolute Auto 300 /uL (0-450); Eosinophils Percent Auto 1.9 % (2-4); Hematocrit 37.8 % (36-46); Hemoglobin 12.9 g/dL (12.0-16.0); Lymphocytes Absolute Auto 4100 /uL (1100-4500); Lymphocytes Percent Auto 24.3 % (25-40); Mean Corpuscular Hemoglobin 32.4 PG (26-34); Mean Corpuscular Volume 95.1 fL (80-100); Monocytes Absolute Auto 1300 /uL (0-900); Monocytes Percent Auto 7.9 % (3-14); Neutrophils Absolute Auto 10900 /uL (1500-7000); Platelet Count 817 X10^3/uL (150-400); Red Blood Cell Count 3.98 X10^6/uL (4.0-5.2); Red Cell Distribution Width 16.2 % (11.6-14.8); White Blood Cell Count 16.8 X10^3/uL (4.5-11.0)
[2020-06-30 08:22] LABS: Platelet Estimate Increased on smear
== END ==
PROVIDERS: PCP Physician Assistant; Referring Provider Internal Medicine Hematology; Visit Provider Internal Medicine Hematology
DX: D69.3 Immune thrombocytopenic purpura (principal)
CPT/HCPCS: 36415; 85025

== ENCOUNTER → 2020-07-05 06:32 | Outpatient (CLI) | payer MEDICARE, OTHER, SELFPAY ==
[2020-04-24 11:11] VITALS: BMI 20.5
[2020-07-05 07:13] LABS: Add Manual Diff / Slide Review NO; Basophils Absolute Auto 200 /uL (0-100); Basophils Percent Auto 1.4 % (0-2); Eosinophils Absolute Auto 300 /uL (0-450); Eosinophils Percent Auto 2.4 % (2-4); Hematocrit 38.2 % (36-46); Hemoglobin 12.8 g/dL (12.0-16.0); Lymphocytes Absolute Auto 3600 /uL (1100-4500); Lymphocytes Percent Auto 25.7 % (25-40); Mean Corpuscular HGB Conc 33.5 % (30-36); Mean Corpuscular Hemoglobin 31.4 PG (26-34); Mean Corpuscular Volume 93.7 fL (80-100); Monocytes Absolute Auto 900 /uL (0-900); Monocytes Percent Auto 6.5 % (3-14); Neutrophils Absolute Auto 8900 /uL (1500-7000); Platelet Count 735 X10^3/uL (150-400); Red Blood Cell Count 4.07 X10^6/uL (4.0-5.2); Red Cell Distribution Width 15.8 % (11.6-14.8); White Blood Cell Count 13.9 X10^3/uL (4.5-11.0)
== END ==
PROVIDERS: PCP Physician Assistant; Referring Provider Internal Medicine; Visit Provider Internal Medicine
DX: D69.3 Immune thrombocytopenic purpura (principal); Z86.2 Personal history of diseases of the blood and blood-forming organs and certain disorders involving the immune mechanism
CPT/HCPCS: 36415; 85025

== ENCOUNTER → 2020-07-11 06:33 | Outpatient (CLI) | payer MEDICARE, OTHER, SELFPAY ==
[2020-04-24 11:11] VITALS: BMI 20.5
[2020-07-11 07:12] LABS: Add Manual Diff / Slide Review NO; Basophils Absolute Auto 200 /uL (0-100); Basophils Percent Auto 1.2 % (0-2); Eosinophils Absolute Auto 200 /uL (0-450); Eosinophils Percent Auto 1.9 % (2-4); Hematocrit 38.8 % (36-46); Lymphocytes Absolute Auto 3400 /uL (1100-4500); Lymphocytes Percent Auto 27.6 % (25-40); Mean Corpuscular HGB Conc 33.4 % (30-36); Mean Corpuscular Hemoglobin 31.8 PG (26-34); Mean Corpuscular Volume 95.1 fL (80-100); Monocytes Absolute Auto 900 /uL (0-900); Monocytes Percent Auto 7.2 % (3-14); Neutrophils Absolute Auto 7700 /uL (1500-7000); Neutrophils Percent Auto 62.1 % (50-75); Platelet Count 203 X10^3/uL (150-400); Red Blood Cell Count 4.08 X10^6/uL (4.0-5.2); Red Cell Distribution Width 15.4 % (11.6-14.8); White Blood Cell Count 12.4 X10^3/uL (4.5-11.0)
== END ==
PROVIDERS: PCP Physician Assistant; Referring Provider Internal Medicine Hematology; Visit Provider Internal Medicine Hematology
DX: D69.3 Immune thrombocytopenic purpura (principal)
CPT/HCPCS: 36415; 85025

== ENCOUNTER → 2020-07-17 06:34 | Outpatient (CLI) | payer MEDICARE, OTHER, SELFPAY ==
[2020-04-24 11:11] VITALS: BMI 20.5
[2020-07-17 07:31] LABS: Hematocrit 40.4 % (36-46); Hemoglobin 13.6 g/dL (12.0-16.0); Mean Corpuscular HGB Conc 33.5 % (30-36); Mean Corpuscular Hemoglobin 31.6 PG (26-34); Mean Corpuscular Volume 94.2 fL (80-100); Red Blood Cell Count 4.29 X10^6/uL (4.0-5.2); White Blood Cell Count 13.3 X10^3/uL (4.5-11.0)
[2020-07-17 08:15] LABS: Add Manual Diff / Slide Review YES; Platelet Count 17 X10^3/uL (150-400)
[2020-07-17 08:19] LABS: Neutrophils Absolute Manual 9310 /uL (3000-5900); Total Cells Counted 100
[2020-07-17 08:20] LABS: Acanthocytes 1+; Anisocytosis 1+; Platelet Estimate Decreased on smear
[2020-07-17 08:21] LABS: Burr Cells 1+
== END ==
PROVIDERS: Internal Medicine; PCP Physician Assistant; Referring Provider Internal Medicine Hematology; Visit Provider Internal Medicine Hematology
DX: D69.3 Immune thrombocytopenic purpura (principal); Z86.2 Personal history of diseases of the blood and blood-forming organs and certain disorders involving the immune mechanism
CPT/HCPCS: 36415; 85007; 85025

== ENCOUNTER → 2020-08-01 06:32 | Outpatient (CLI) | payer MEDICARE, OTHER, SELFPAY ==
[2020-04-24 11:11] VITALS: BMI 20.5
[2020-08-01 09:09] LABS: Uric Acid 4.5 mg/dL (2.5-6.2)
== END ==
PROVIDERS: PCP Physician Assistant; Referring Provider Internal Medicine; Visit Provider Internal Medicine
DX: M79.672 Pain in left foot (principal)
CPT/HCPCS: 36415; 84550

== ENCOUNTER → 2020-08-05 07:34 | Outpatient (CLI) | payer MEDICARE, OTHER, SELFPAY ==
[2020-04-24 11:11] VITALS: BMI 20.5
[2020-08-05 09:31] LABS: Add Manual Diff / Slide Review NO; Basophils Absolute Auto 200 /uL (0-100); Basophils Percent Auto 1.4 % (0-2); Eosinophils Absolute Auto 200 /uL (0-450); Eosinophils Percent Auto 1.3 % (2-4); Hematocrit 37.5 % (36-46); Hemoglobin 12.8 g/dL (12.0-16.0); Lymphocytes Absolute Auto 2900 /uL (1100-4500); Lymphocytes Percent Auto 21.5 % (25-40); Mean Corpuscular HGB Conc 34.3 % (30-36); Mean Corpuscular Hemoglobin 32.3 PG (26-34); Mean Corpuscular Volume 94.2 fL (80-100); Monocytes Absolute Auto 1100 /uL (0-900); Monocytes Percent Auto 8.3 % (3-14); Neutrophils Absolute Auto 9100 /uL (1500-7000); Neutrophils Percent Auto 67.5 % (50-75); Red Blood Cell Count 3.98 X10^6/uL (4.0-5.2); Red Cell Distribution Width 15.7 % (11.6-14.8); White Blood Cell Count 13.5 X10^3/uL (4.5-11.0)
[2020-08-05 10:00] LABS: Platelet Count 1045 X10^3/uL (150-400)
[2020-08-05 10:03] LABS: Platelet Estimate Increased on smear; RBC Morphology Normal Morphology
== END ==
PROVIDERS: PCP Physician Assistant; Referring Provider Nurse Practitioner Family; Visit Provider Nurse Practitioner Family
DX: K62.5 Hemorrhage of anus and rectum (principal); D50.9 Iron deficiency anemia, unspecified
CPT/HCPCS: 36415; 85025

== ENCOUNTER → 2020-08-10 06:33 | Outpatient (CLI) | payer MEDICARE, OTHER, SELFPAY ==
[2020-04-24 11:11] VITALS: BMI 20.5
[2020-08-10 07:11] LABS: Add Manual Diff / Slide Review NO; Basophils Absolute Auto 100 /uL (0-100); Basophils Percent Auto 1.1 % (0-2); Eosinophils Absolute Auto 400 /uL (0-450); Eosinophils Percent Auto 3.4 % (2-4); Hematocrit 38.5 % (36-46); Hemoglobin 12.8 g/dL (12.0-16.0); Lymphocytes Absolute Auto 3300 /uL (1100-4500); Lymphocytes Percent Auto 26.1 % (25-40); Mean Corpuscular HGB Conc 33.1 % (30-36); Mean Corpuscular Hemoglobin 31.4 PG (26-34); Mean Corpuscular Volume 94.8 fL (80-100); Monocytes Absolute Auto 1200 /uL (0-900); Monocytes Percent Auto 9.5 % (3-14); Neutrophils Absolute Auto 7500 /uL (1500-7000); Neutrophils Percent Auto 59.9 % (50-75); Platelet Count 727 X10^3/uL (150-400); Red Blood Cell Count 4.06 X10^6/uL (4.0-5.2); Red Cell Distribution Width 15.7 % (11.6-14.8); White Blood Cell Count 12.5 X10^3/uL (4.5-11.0)
== END ==
PROVIDERS: PCP Physician Assistant; Referring Provider Internal Medicine Hematology; Visit Provider Internal Medicine Hematology
DX: D69.3 Immune thrombocytopenic purpura (principal)
CPT/HCPCS: 36415; 85025

== ENCOUNTER → 2020-08-15 06:33 | Outpatient (CLI) | payer MEDICARE, OTHER, SELFPAY ==
[2020-04-24 11:11] VITALS: BMI 20.5
[2020-08-15 08:15] LABS: Add Manual Diff / Slide Review NO; Basophils Absolute Auto 200 /uL (0-100); Basophils Percent Auto 2.2 % (0-2); Eosinophils Absolute Auto 400 /uL (0-450); Hematocrit 38.8 % (36-46); Hemoglobin 13.1 g/dL (12.0-16.0); Lymphocytes Absolute Auto 3200 /uL (1100-4500); Mean Corpuscular HGB Conc 33.9 % (30-36); Mean Corpuscular Hemoglobin 32.1 PG (26-34); Mean Corpuscular Volume 94.8 fL (80-100); Monocytes Absolute Auto 900 /uL (0-900); Monocytes Percent Auto 8.2 % (3-14); Neutrophils Absolute Auto 6000 /uL (1500-7000); Neutrophils Percent Auto 55.6 % (50-75); Platelet Count 62 X10^3/uL (150-400); Red Blood Cell Count 4.09 X10^6/uL (4.0-5.2); Red Cell Distribution Width 15.7 % (11.6-14.8); White Blood Cell Count 10.7 X10^3/uL (4.5-11.0)
== END ==
PROVIDERS: PCP Physician Assistant; Referring Provider Internal Medicine Hematology; Visit Provider Internal Medicine Hematology
DX: D69.3 Immune thrombocytopenic purpura (principal)
CPT/HCPCS: 36415; 85025

== ENCOUNTER 2020-08-16 21:26 | Emergency (ER) | payer MEDICARE, OTHER, SELFPAY ==
[2020-04-24 11:11] VITALS: BMI 20.5
[2020-08-16 21:32] VITALS: BP 157/94; PULSE 98; RESP 20; TEMP 36.6; O2SAT 96
[2020-08-16 21:51] LABS: Add Manual Diff / Slide Review NO; Basophils Absolute Auto 200 /uL (0-100); Basophils Percent Auto 1.3 % (0-2); Eosinophils Absolute Auto 200 /uL (0-450); Eosinophils Percent Auto 1.6 % (2-4); Hematocrit 40.2 % (36-46); Hemoglobin 13.5 g/dL (12.0-16.0); Lymphocytes Absolute Auto 2800 /uL (1100-4500); Lymphocytes Percent Auto 21.9 % (25-40); Mean Corpuscular HGB Conc 33.6 % (30-36); Mean Corpuscular Hemoglobin 31.7 PG (26-34); Mean Corpuscular Volume 94.2 fL (80-100); Monocytes Absolute Auto 800 /uL (0-900); Monocytes Percent Auto 6.3 % (3-14); Neutrophils Absolute Auto 8800 /uL (1500-7000); Neutrophils Percent Auto 68.9 % (50-75); Red Blood Cell Count 4.26 X10^6/uL (4.0-5.2); Red Cell Distribution Width 15.6 % (11.6-14.8); White Blood Cell Count 12.8 X10^3/uL (4.5-11.0)
[2020-08-16 21:52] LABS: Platelet Count 3 X10^3/uL (150-400); Platelet Estimate Decreased on smear
--- NOTE | 2020-08-16 22:37 | PC.NURSE ---
2140 crit value plt 3 MD Carol coto
--- NOTE | 2020-08-16 22:53 | ED.RECABL ---
HPI - Recheck/Abnormal Lab/Rx General Chief Complaint: Recheck/Abnormal Lab/Rx Stated Complaint: needs ivig Time Seen by Provider: 08/16/20 21:55 Source: patient Mode of arrival: Ambulatory History of Present Illness HPI narrative: Patient is a 79-year-old female with a history of ITP who has presented multiple times in the past for thrombocytopenia who presents again stating that her platelets are low. She states that over the past 24 hours she has noticed some ?blood blisters ?in her mouth. She states that when this happened she knows that her platelets are low. She does have Amicar medication home but has not taken it. She has received multiple IVig infusions in the past and seems to respond very well to these. She denies any headache. No change in stool. No other bleeding. No vision changes. Related Data Home Medications Medication Instructions Recorded Confirmed metoprolol succinate 25 mg 12.5 mg PO QDAY #0 10/12/11 07/19/20 tablet,extended release 24 hr (Toprol XL) polyethylene glycol 3350 17 gram 17 gm PO BEDTIME PRN #0 05/26/17 07/19/20 oral powder packet (Miralax) lisinopril 10 mg tablet 10 mg PO QAM 12/20/19 07/14/20 lorazepam 0.5 mg tablet 0.5 mg PO BEDTIME 12/20/19 07/19/20 ascorbic acid (vitamin C) 500 mg 500 mg DAILY 02/08/20 07/14/20 tablet (Vitamin C) cholecalciferol (vitamin D3) 50 50 mcg PO DAILY 02/08/20 07/14/20 mcg (2,000 unit) capsule (Vitamin D3) elderberry fruit 200 mg capsule 200 mg PO DAILY 02/08/20 07/14/20 multivitamin 1 tab PO DAILY 02/08/20 07/19/20 vitamin B complex 1 tab PO DAILY 02/08/20 07/19/20 vitamin B12 0.5 mg-folic acid 1 mg 1 tab PO DAILY 04/05/20 07/19/20 tablet prednisone 20 mg tablet 40 mg PO DAILY 05/03/20 07/19/20 avatrombopag 20 mg tablet 40 mg PO DAILY 07/19/20 07/19/20 (Doptelet (10 tab pack)) Previous Rx's Medication Instructions Recorded prochlorperazine maleate 5 mg 5 mg PO Q6H PRN #20 tab 05/17/20 tablet (Compazine) aminocaproic acid 500 mg tablet 2 g PO QID #100 tab 06/22/20 (Amicar) conjugated estrogens 0.625 mg/gram 0.625 mg VAGINAL 2XW #30 g 07/14/20 vaginal cream prednisone 5 mg tablet 20 mg PO DAILY #180 tab 07/26/20 Allergies Allergy/AdvReac Type Severity Reaction Status Date / Time latex Allergy Mild LOCAL RASH Verified 07/14/20 16:00 Penicillins Allergy Mild CHILDHOOD Verified 07/14/20 16:00 Sulfa (Sulfonamide Allergy Mild SOMETHING Verified 07/14/20 16:00 Antibiotics) TO DO WITH BLADDER OR KIDNEY'S?? iodine AdvReac Intermediate RAPID Verified 07/14/20 16:00 HEART RATE (IV CONTRAST) Review of Systems Constitutional Constitutional: Denies headache(s) ENT Ears, Nose, Mouth, and Throat: Reports as per HPI and Denies headache(s) Cardiovascular Cardiovascular: Reports system reviewed and no additional complaints, except as documented Respiratory Respiratory: Reports system reviewed and no additional complaints, except as documented Gastrointestinal Gastrointestinal: Denies melena and Denies hematochezia Genitourinary Genitourinary: Denies abnormal vaginal bleeding and Denies hematuria Integumentary/Breasts Skin/Breast: Reports system reviewed and no additional complaints, except as documented Neurologic Neurologic: Denies headache(s) Hematologic/Lymphatic Hematologic/Lymphatic: Reports easy bruising On Anticoagulants: No Allergic/Immunologic Allergic/Immunologic: Reports system reviewed and no additional complaints, except as documented Patient History Medical History (Updated 08/17/20 @ 04:28 by Nehemiah Medina DO) Anxiety Atrial flutter Chronic steroid use History of ITP Hypertension Microscopic hematuria Osteoporosis Scoliosis Surgical History History of splenectomy History of tonsillectomy Status post hysterectomy Family History Father Cancer Mother Bleeding disorder Brother Brain cancer Social History marital status: household members: spouse lives independently: Yes Smoking Status: Never smoker alcohol intake: current Smoking Status: Never smoker alcohol intake frequency: a few times a week Substance Use Type: does not use Exam Initial Vital Signs Initial Vital Signs: Vital Signs Temperature 97.9 F 08/16/20 21:32 Pulse Rate 98 H 08/16/20 21:32 Respiratory Rate 20 08/16/20 21:32 Blood Pressure 157/94 H 08/16/20 21:32 Pulse Oximetry 96 08/16/20 21:32 Const General: cooperative, comfortable and well developed HENMT Head: normal to inspection and normocephalic Mouth: other (Petechiae on roof of mouth, ecchymosis left cheek) Eyes General: appearance normal, both eyes and all related structures Resp Effort & Inspection: normal respiratory effort Cardio Rate: regular rate Rhythm: regular rhythm Skin General: no rashes or lesions noted Neuro General: patient alert, patient awake and patient oriented x3 Extrem General: normal to inspection and capillary refill normal Psych Appearance: grossly normal and well kempt Course Orders Ordered: ED Orders 08/16/20 21:41 CBC Auto Diff [Complete Blood Count AUTO DIFF] Stat Discontinued Medications Acetaminophen (Acetaminophen 325 Mg Tablet) 650 mg PO NOW ONE Stop: 08/16/20 23:59 Last Admin: 08/17/20 00:03 Dose: 650 mg Documented by: NINA Diphenhydramine HCl (Diphenhydramine 25 Mg Tablet) 25 mg PO NOW ONE Stop: 08/16/20 23:59 Last Admin: 08/17/20 00:03 Dose: 25 mg Documented by: NINA Immune Globulin 30 gm/ (Miscellaneous) 301 mls @ 0 mls/hr IV NOW ONE Stop: 08/16/20 22:54 Last Infusion: 08/17/20 01:10 Dose: 64 mls/hr Documented by: Admin: 08/17/20 00:05 Dose: 32 mls/hr Documented by: NINA Vital Signs Vital signs: Vital Signs - 8 hr 08/16/20 21:32 08/17/20 02:40 Temperature 97.9 F Pulse Rate 98 H 78 Respiratory Rate 20 18 Blood Pressure 157/94 H 121/71 Pulse Oximetry 96 97 MDM - Recheck/Abnormal Lab/Rx Medical Records Attestation: I reviewed the patient's medical records. Lab Data Attestation: I reviewed the patient's lab results. Result diagrams: 08/16/20 21:41 Labs: Lab Results 08/16/20 Range/Units 21:41 WBC 12.8 H (4.5-11.0) X10^3/uL RBC 4.26 (4.0-5.2) X10^6/uL Hgb 13.5 (12.0-16.0) g/dL Hct 40.2 (36-46) % MCV 94.2 (80-100) fL MCH 31.7 (26-34) PG MCHC 33.6 (30-36) % RDW 15.6 H (11.6-14.8) % Plt Count 3 L* (150-400) X10^3/uL Neut % (Auto) 68.9 (50-75) % Lymph % (Auto) 21.9 L (25-40) % [place] % (Auto) 6.3 (3-14) % Eos % (Auto) 1.6 L (2-4) % Baso % (Auto) 1.3 (0-2) % Neut # (Auto) 8800 H (7529-3367) /uL Lymph # (Auto) 2800 (2254-5038) /uL [place] # (Auto) 800 (0-900) /uL Eos # (Auto) 200 (0-450) /uL Baso # (Auto) 200 H (0-100) /uL Platelet Estimate Decreased on smear RBC Morphology Not Reportable MDM Narrative Medical decision making narrative: She is thrombocytopenic. She does have some petechiae and a very small area of ecchymosis on her left buccal mucosa. There is no other indication of any bleeding. She is not having any headaches. She is alert oriented. GCS of 15. Has not any blood in her urine. No blood in her stool. I feel that we can hold on radiologic studies. She was given an infusion of IVIG. Will hold on the platelet transfusion. I did discuss the case with hematology who agreed with the above plan. Patient will start taking her Amicar when she arrives home and contact her machine try out setter later today. Discharge Plan Departure Patient Disposition: Home Clinical Impression: Thrombocytopenia Instructions: DI for Immune Thrombocytopenic Purpura Activity Restrictions/Additional Instructions: I recommend that you start taking the Amicar at home as directed. Also recommend that when the office is open later today the you contact your machine try out setter. Keep all of your scheduled medical appointments. Return to the emergency department for any new or worsening symptoms Prescriptions: No Action metoprolol succinate [Toprol XL] 25 MG tablet extended release 24 hr 12.5 mg PO QDAY Qty: 0 RF: 0 polyethylene glycol 3350 [Miralax] 17 GM powder in packet 17 gm PO BEDTIME PRN (Reason: Constipation) Qty: 0 RF: 0 conjugated estrogens 0.625 mg/gram cream 0.625 mg vaginal 2XW Qty: 30 RF: 3 multivitamin Tablet 1 tab PO DAILY RF: 0 ascorbic acid (vitamin C) [Vitamin C] 500 mg Tablet 500 mg DAILY RF: 0 vitamin B complex Tablet 1 tab PO DAILY RF: 0 elderberry fruit 200 mg Capsule 200 mg PO DAILY RF: 0 cholecalciferol (vitamin D3) [Vitamin D3] 50 mcg (2,000 unit) Capsule 50 mcg PO DAILY RF: 0 vitamin [id number] acid 0.5-1 mg Tablet 1 tab PO DAILY RF: 0 prednisone 20 mg tablet 40 mg PO DAILY RF: 0 prochlorperazine maleate [Compazine] 5 mg Tablet 5 mg PO Q6H PRN (Reason: Nausea) Qty: 20 RF: 0 aminocaproic acid [Amicar] 500 mg Tablet 2 g PO QID Qty: 100 RF: 1 Doptelet (10 tab pack) 20 mg tablet 40 mg PO DAILY RF: 0 prednisone 5 mg Tablet 20 mg PO DAILY Qty: 180 RF: 1 lorazepam 0.5 mg tablet 0.5 mg PO BEDTIME RF: 0 lisinopril 10 mg tablet 10 mg PO QAM RF: 0 Referrals: Henny Dinh PA-C [Primary Care Provider] -
[2020-08-17] MEDS: diphenhydrAMINE 25 MG TABLET PO (00:03)
[2020-08-17] MEDS: ACETAMINOPHEN 325 MG TABLET 650 MG PO (00:03)
[2020-08-17] MEDS: ISOOSMOTIC VEHICLE IV (00:05)
[2020-08-17] MEDS: IMMUNE GLOBULIN IV (00:05)
[2020-08-17 02:40] VITALS: BP 121/71; PULSE 78; RESP 18; O2SAT 97
[2020-08-17 04:31] VITALS: BP 163/84; PULSE 85; RESP 14; O2SAT 97
== END 2020-08-17 04:41 | disposition home or self-care (01) ==
PROVIDERS: Emergency Provider Emergency Medicine; PCP Physician Assistant
DX: D69.3 Immune thrombocytopenic purpura (principal); D69.6 Thrombocytopenia, unspecified; R79.89 Other specified abnormal findings of blood chemistry
CPT/HCPCS: 85025; 96365; 96366; 99284; J1561

== ENCOUNTER → 2020-08-18 16:34 | Outpatient (CLI) | payer MEDICARE, OTHER, SELFPAY ==
[2020-04-24 11:11] VITALS: BMI 20.5
[2020-08-18 17:12] LABS: Basophils Absolute Auto 100 /uL (0-100); Eosinophils Absolute Auto 0 /uL (0-450); Eosinophils Percent Auto 0.5 % (2-4); Monocytes Absolute Auto 300 /uL (0-900); Monocytes Percent Auto 3.3 % (3-14); Neutrophils Absolute Auto 8200 /uL (1500-7000)
[2020-08-18 17:25] LABS: Hematocrit 39.5 % (36-46); Hemoglobin 13.6 g/dL (12.0-16.0); Lymphocytes Absolute Auto 1100 /uL (1100-4500); Lymphocytes Percent Auto 10.9 % (25-40); Mean Corpuscular HGB Conc 34.4 % (30-36); Mean Corpuscular Hemoglobin 32.5 PG (26-34); Mean Corpuscular Volume 94.4 fL (80-100); Neutrophils Percent Auto 84.3 % (50-75); Red Blood Cell Count 4.18 X10^6/uL (4.0-5.2); Red Cell Distribution Width 15.5 % (11.6-14.8); White Blood Cell Count 9.7 X10^3/uL (4.5-11.0)
[2020-08-18 17:32] LABS: Alanine Aminotransferase 18 IU/L (<35); Albumin 4.6 g/dL (3.5-5.0); Albumin Globulin Ratio 1.2 (1.0-2.8); Alkaline Phosphatase 64 U/L (38-126); Aspartate Aminotransferase 27 IU/L (14-36); Bilirubin Total 0.5 mg/dL (0.2-1.3); Bilirubin Unconjugated 0.4 mg/dL (0.0-1.1); Globulin 3.7 g/dL (1.7-4.1); HEMOLYSIS < 15 (0-50); Total Protein 8.3 g/dL (6.3-8.2)
[2020-08-18 17:48] LABS: Add Manual Diff / Slide Review SLIDE REVIEW; Platelet Count 3 X10^3/uL (150-400)
[2020-08-18 17:51] LABS: RBC Morphology Normal Morphology
[2020-08-18 17:52] LABS: Platelet Estimate Decreased on smear
== END ==
PROVIDERS: PCP Physician Assistant; Referring Provider Internal Medicine Hematology; Visit Provider Internal Medicine Hematology
DX: D69.3 Immune thrombocytopenic purpura (principal)
CPT/HCPCS: 36415; 80076; 85025

== ENCOUNTER 2020-08-18 18:03 | Emergency (ER) | payer MEDICARE, OTHER, SELFPAY ==
[2020-04-24 11:11] VITALS: BMI 20.5
[2020-08-18] VITALS (7 sets, daily range): BP systolic 125–161; BP diastolic 71–93; PULSE 62–84; RESP 16; TEMP 36.6; O2SAT 95–97
--- NOTE | 2020-08-18 20:08 | ED_ITS ---
HPI - Recheck/Abnormal Lab/Rx General Chief Complaint: Recheck/Abnormal Lab/Rx Stated Complaint: BLEEDING ABNORMAL LABS Time Seen by Provider: 08/18/20 20:05 Source: patient Mode of arrival: Ambulatory Limitations: no limitations History of Present Illness HPI narrative: Patient is a 79-year-old female who has a known history of ITP. She was seen here in the emergency department a couple days ago and had a platel et count of 3000. She received IVIG. Was discharged home. She has been taking her Amicar since the for had a repeat blood draw today ordered by her nursing clinical director and her platelets were again 3000. When she was here couple days ago she did have some bruising in her mouth and that has continued. She denies any headache. No abdominal pain. No blood in her stool. No blood in her urine. She is also having some bruising on her shins. No nosebleeds. Related Data Home Medications Medication Instructions Recorded Confirmed metoprolol succinate 25 mg 12.5 mg PO QDAY #0 10/12/11 07/19/20 tablet,extended release 24 hr (Toprol XL) polyethylene glycol 3350 17 gram 17 gm PO BEDTIME PRN #0 05/26/17 07/19/20 oral powder packet (Miralax) lisinopril 10 mg tablet 10 mg PO QAM 12/20/19 07/14/20 lorazepam 0.5 mg tablet 0.5 mg PO BEDTIME 12/20/19 07/19/20 ascorbic acid (vitamin C) 500 mg 500 mg DAILY 02/08/20 07/14/20 tablet (Vitamin C) cholecalciferol (vitamin D3) 50 50 mcg PO DAILY 02/08/20 07/14/20 mcg (2,000 unit) capsule (Vitamin D3) elderberry fruit 200 mg capsule 200 mg PO DAILY 02/08/20 07/14/20 multivitamin 1 tab PO DAILY 02/08/20 07/19/20 vitamin B complex 1 tab PO DAILY 02/08/20 07/19/20 vitamin B12 0.5 mg-folic acid 1 mg 1 tab PO DAILY 04/05/20 07/19/20 tablet prednisone 20 mg tablet 40 mg PO DAILY 05/03/20 07/19/20 avatrombopag 20 mg tablet 40 mg PO DAILY 07/19/20 07/19/20 (Doptelet (10 tab pack)) Previous Rx's Medication Instructions Recorded prochlorperazine maleate 5 mg 5 mg PO Q6H PRN #20 tab 05/17/20 tablet (Compazine) aminocaproic acid 500 mg tablet 2 g PO QID #100 tab 06/22/20 (Amicar) conjugated estrogens 0.625 mg/gram 0.625 mg VAGINAL 2XW #30 g 07/14/20 vaginal cream prednisone 5 mg tablet 20 mg PO DAILY #180 tab 07/26/20 prednisone 20 mg tablet 20 mg PO DAILY 14 Days #14 tab 08/19/20 Allergies Allergy/AdvReac Type Severity Reaction Status Date / Time latex Allergy Mild LOCAL RASH Verified 08/18/20 18:06 Penicillins Allergy Mild CHILDHOOD Verified 08/18/20 18:06 Sulfa (Sulfonamide Allergy Mild SOMETHING Verified 08/18/20 18:06 Antibiotics) TO DO WITH BLADDER OR KIDNEY'S?? iodine AdvReac Intermediate RAPID Verified 08/18/20 18:06 HEART RATE (IV CONTRAST) Review of Systems Constitutional Constitutional: Denies fever(s) and Denies headache(s) Eyes Eyes: Reports system reviewed and no additional complaints, except as documented ENT Ears, Nose, Mouth, and Throat: Denies headache(s) Comments: Bruising in her mouth Cardiovascular Cardiovascular: Reports system reviewed and no additional complaints, except as documented Respiratory Respiratory: Reports system reviewed and no additional complaints, except as documented Gastrointestinal Gastrointestinal: Reports system reviewed and no additional complaints, except as documented, Denies melena and Denies hematochezia Genitourinary Genitourinary: Denies hematuria Musculoskeletal Musculoskeletal: Reports system reviewed and no additional complaints, except as documented Integumentary/Breasts Skin/Breast: Reports other (Bruising on her shins) Neurologic Neurologic: Denies headache(s) Psychiatric Psychiatric: Reports system reviewed and no additional complaints, except as documented Hematologic/Lymphatic Hematologic/Lymphatic: Reports easy bruising On Anticoagulants: No Allergic/Immunologic Allergic/Immunologic: Reports system reviewed and no additional complaints, except as documented Patient History Medical History (Updated 08/19/20 @ 00:47 by Nehemiah Medina DO) Anxiety Atrial flutter Chronic steroid use History of ITP Hypertension Microscopic hematuria Osteoporosis Scoliosis Surgical History History of splenectomy History of tonsillectomy Status post hysterectomy Family History Father Cancer Mother Bleeding disorder Brother Brain cancer Social History marital status: household members: spouse lives independently: Yes Smoking Status: Never smoker alcohol intake: current Smoking Status: Never smoker alcohol intake frequency: a few times a week Substance Use Type: does not use Exam Initial Vital Signs Initial Vital Signs: Vital Signs Temperature 97.9 F 08/18/20 18:06 Pulse Rate 84 08/18/20 18:06 Respiratory Rate 16 08/18/20 18:06 Blood Pressure 161/93 H 08/18/20 18:06 Pulse Oximetry 97 08/18/20 18:06 Const General: cooperative, healthy appearing and comfortable HENMT Head: normal to inspection and normocephalic Mouth: other (Some petechiae in the oropharynx and on the cheeks) Resp Auscultation: clear to auscultation bilaterally Cardio Rate: regular rate Rhythm: regular rhythm GI Inspection: normal to inspection Skin Other: Bruising on her bilateral anterior shins especially on the right Neuro General: patient alert, patient awake and patient oriented x3 Extrem General: normal to inspection and capillary refill normal Psych Appearance: grossly normal and well kempt Course Orders Ordered: Discontinued Medications Acetaminophen (Acetaminophen 325 Mg Tablet) 650 mg PO NOW ONE Stop: 08/18/20 21:10 Last Admin: 08/18/20 21:32 Dose: 650 mg Documented by: DELMIS Diphenhydramine HCl (Diphenhydramine 25 Mg Tablet) 25 mg PO NOW ONE Stop: 08/18/20 21:10 Last Admin: 08/18/20 21:32 Dose: 25 mg Documented by: DELMIS Immune Globulin 30 gm/ (Miscellaneous) 301 mls @ 0 mls/hr IV NOW ONE Stop: 08/18/20 20:19 Last Infusion: 08/19/20 00:41 Dose: 0 mls/hr Documented by: Infusion: 08/19/20 00:07 Dose: 200 mls/hr Documented by: Infusion: 08/18/20 23:37 Dose: 150 mls/hr Documented by: Infusion: 08/18/20 22:59 Dose: 100 mls/hr Documented by: Infusion: 08/18/20 22:25 Dose: 60 mls/hr Documented by: Admin: 08/18/20 21:58 Dose: 34.5 mls/hr Documented by: DELMIS Methylprednisolone (Methylprednisolone 125 Mg/2 Ml Vial) 250 mg IV NOW ONE Stop: 08/18/20 20:17 Last Admin: 08/18/20 20:41 Dose: 250 mg Documented by: DELMIS Vital Signs Vital signs: Vital Signs - 8 hr 08/18/20 18:06 08/18/20 21:54 08/18/20 22:00 Temperature 97.9 F Pulse Rate 84 76 70 Respiratory Rate 16 16 16 Blood Pressure 161/93 H 144/80 H 125/71 Pulse Oximetry 97 96 95 08/18/20 22:30 08/18/20 23:00 08/18/20 23:19 Temperature Pulse Rate 62 72 Respiratory Rate 16 16 Blood Pressure 134/73 152/81 H 134/77 Pulse Oximetry 96 97 08/18/20 23:30 08/19/20 00:00 08/19/20 00:34 Temperature Pulse Rate Respiratory Rate 16 16 16 Blood Pressure 142/81 H 152/82 H 159/81 H Pulse Oximetry MDM - Recheck/Abnormal Lab/Rx MDM Narrative Medical decision making narrative: I discussed the case with the patient's nursing clinical director who recommended that we again infuse IVIG. She was given 30 g which is 0.5 g per kg per her weight today. Oceanographer Geological also recommended we give Solu-Medrol. She was given 250 mg of this. Will send home on steroids as well per her oncologist recommendation. She does not have any indication based on her exam and presentation today of internal bleeding. We will hold on any radiologic studies for now. Patient was given return precautions and follow-up instructions. She expressed understanding and agreement. Discharge Plan Departure Patient Disposition: Home Clinical Impression: Idiopathic thrombocytopenia purpura Instructions: Immune Thrombocytopenia Purpura Activity Restrictions/Additional Instructions: Your nursing clinical director recommended that you continue to take the Amicar as directed. She also recommended that we send you home on steroids. Please start taking these as directed. She would like you to be on the steroids until she tells you to stop. The prescription was transmitted to your pharmacy of choice on record. Recommend you contact your nursing clinical director on Friday for a follow-up. Return to the emergency department for any new or worsening symptoms. Prescriptions: New prednisone 20 mg tablet 20 mg PO DAILY 14 Days Qty: 14 RF: 0 No Action metoprolol succinate [Toprol XL] 25 MG tablet extended release 24 hr 12.5 mg PO QDAY Qty: 0 RF: 0 polyethylene glycol 3350 [Miralax] 17 GM powder in packet 17 gm PO BEDTIME PRN (Reason: Constipation) Qty: 0 RF: 0 conjugated estrogens 0.625 mg/gram cream 0.625 mg vaginal 2XW Qty: 30 RF: 3 multivitamin Tablet 1 tab PO DAILY RF: 0 ascorbic acid (vitamin C) [Vitamin C] 500 mg Tablet 500 mg DAILY RF: 0 vitamin B complex Tablet 1 tab PO DAILY RF: 0 elderberry fruit 200 mg Capsule 200 mg PO DAILY RF: 0 cholecalciferol (vitamin D3) [Vitamin D3] 50 mcg (2,000 unit) Capsule 50 mcg PO DAILY RF: 0 vitamin Q16-ldndg acid 0.5-1 mg Tablet 1 tab PO DAILY RF: 0 prednisone 20 mg tablet 40 mg PO DAILY RF: 0 prochlorperazine maleate [Compazine] 5 mg Tablet 5 mg PO Q6H PRN (Reason: Nausea) Qty: 20 RF: 0 aminocaproic acid [Amicar] 500 mg Tablet 2 g PO QID Qty: 100 RF: 1 Doptelet (10 tab pack) 20 mg tablet 40 mg PO DAILY RF: 0 prednisone 5 mg Tablet 20 mg PO DAILY Qty: 180 RF: 1 lorazepam 0.5 mg tablet 0.5 mg PO BEDTIME RF: 0 lisinopril 10 mg tablet 10 mg PO QAM RF: 0 Referrals: Henny Dinh PA-C [Primary Care Provider] -
[2020-08-18] MEDS: methylPREDNISolone 125 MG/2 ML VIAL 250 MG IV (20:41)
[2020-08-18] MEDS: diphenhydrAMINE 25 MG TABLET PO (21:32)
[2020-08-18] MEDS: ACETAMINOPHEN 325 MG TABLET 650 MG PO (21:32)
[2020-08-18] MEDS: IMMUNE GLOBULIN IV (21:58)
[2020-08-18] MEDS: ISOOSMOTIC VEHICLE IV (21:58)
[2020-08-19] VITALS: BP 152/82; RESP 16
[2020-08-19 00:34] VITALS: BP 159/81; RESP 16
[2020-08-19 00:38] VITALS: PULSE 64; O2SAT 96
== END 2020-08-19 00:57 | disposition home or self-care (01) ==
PROVIDERS: Emergency Provider Emergency Medicine; PCP Physician Assistant
DX: D69.3 Immune thrombocytopenic purpura (principal)
CPT/HCPCS: 36415; 80076; 85025; 96365; 96366; 96375; 99284; J1561; J2930

== ENCOUNTER → 2020-08-19 12:24 | Outpatient (CLI) | payer MEDICARE, OTHER, SELFPAY ==
[2020-04-24 11:11] VITALS: BMI 20.5
[2020-08-19 13:13] LABS: Platelet Count 2 X10^3/uL (150-400)
== END ==
PROVIDERS: Nurse Practitioner Family; PCP Physician Assistant; Referring Provider Internal Medicine Hematology; Visit Provider Internal Medicine Hematology
DX: K62.5 Hemorrhage of anus and rectum (principal); D50.9 Iron deficiency anemia, unspecified
CPT/HCPCS: 36415; 85049

== ENCOUNTER → 2020-08-23 06:33 | Outpatient (CLI) | payer MEDICARE, OTHER, SELFPAY ==
[2020-04-24 11:11] VITALS: BMI 20.5
[2020-08-23 07:18] LABS: Add Manual Diff / Slide Review NO; Basophils Absolute Auto 100 /uL (0-100); Basophils Percent Auto 0.5 % (0-2); Eosinophils Absolute Auto 300 /uL (0-450); Eosinophils Percent Auto 2.9 % (2-4); Hematocrit 38.1 % (36-46); Hemoglobin 12.8 g/dL (12.0-16.0); Lymphocytes Absolute Auto 3400 /uL (1100-4500); Lymphocytes Percent Auto 28.7 % (25-40); Mean Corpuscular HGB Conc 33.5 % (30-36); Mean Corpuscular Hemoglobin 31.9 PG (26-34); Mean Corpuscular Volume 95.2 fL (80-100); Monocytes Absolute Auto 1100 /uL (0-900); Monocytes Percent Auto 9.1 % (3-14); Neutrophils Absolute Auto 6900 /uL (1500-7000); Neutrophils Percent Auto 58.8 % (50-75); Platelet Count 87 X10^3/uL (150-400); Red Cell Distribution Width 15.8 % (11.6-14.8); White Blood Cell Count 11.8 X10^3/uL (4.5-11.0)
== END ==
PROVIDERS: PCP Physician Assistant; Referring Provider Internal Medicine Hematology; Visit Provider Internal Medicine Hematology
DX: D69.3 Immune thrombocytopenic purpura (principal)
CPT/HCPCS: 36415; 85025

== ENCOUNTER → 2020-08-28 06:33 | Outpatient (CLI) | payer MEDICARE, OTHER, SELFPAY ==
[2020-04-24 11:11] VITALS: BMI 20.5
[2020-08-28 07:15] LABS: Add Manual Diff / Slide Review NO; Basophils Absolute Auto 100 /uL (0-100); Basophils Percent Auto 0.7 % (0-2); Eosinophils Absolute Auto 100 /uL (0-450); Eosinophils Percent Auto 0.9 % (2-4); Hematocrit 39.1 % (36-46); Hemoglobin 13.3 g/dL (12.0-16.0); Lymphocytes Absolute Auto 3100 /uL (1100-4500); Lymphocytes Percent Auto 19.3 % (25-40); Mean Corpuscular HGB Conc 34.1 % (30-36); Mean Corpuscular Hemoglobin 32.9 PG (26-34); Mean Corpuscular Volume 96.3 fL (80-100); Monocytes Absolute Auto 1400 /uL (0-900); Monocytes Percent Auto 8.6 % (3-14); Neutrophils Absolute Auto 11200 /uL (1500-7000); Neutrophils Percent Auto 70.5 % (50-75); Platelet Count 464 X10^3/uL (150-400); Red Blood Cell Count 4.06 X10^6/uL (4.0-5.2); Red Cell Distribution Width 15.9 % (11.6-14.8); White Blood Cell Count 15.9 X10^3/uL (4.5-11.0)
== END ==
PROVIDERS: Internal Medicine Hematology; PCP Physician Assistant; Referring Provider Midwife; Visit Provider Midwife
DX: D69.3 Immune thrombocytopenic purpura (principal)
CPT/HCPCS: 36415; 85025

== ENCOUNTER → 2020-08-31 06:32 | Outpatient (CLI) | payer MEDICARE, OTHER, SELFPAY ==
[2020-04-24 11:11] VITALS: BMI 20.5
[2020-08-31 07:15] LABS: Add Manual Diff / Slide Review NO; Basophils Absolute Auto 100 /uL (0-100); Basophils Percent Auto 0.9 % (0-2); Eosinophils Absolute Auto 100 /uL (0-450); Eosinophils Percent Auto 0.8 % (2-4); Hematocrit 38.6 % (36-46); Hemoglobin 13.1 g/dL (12.0-16.0); Lymphocytes Absolute Auto 2500 /uL (1100-4500); Lymphocytes Percent Auto 15.6 % (25-40); Mean Corpuscular HGB Conc 34.1 % (30-36); Mean Corpuscular Hemoglobin 32.5 PG (26-34); Mean Corpuscular Volume 95.4 fL (80-100); Monocytes Absolute Auto 1100 /uL (0-900); Monocytes Percent Auto 7.1 % (3-14); Neutrophils Absolute Auto 12200 /uL (1500-7000); Neutrophils Percent Auto 75.6 % (50-75); Platelet Count 697 X10^3/uL (150-400); Red Blood Cell Count 4.04 X10^6/uL (4.0-5.2); Red Cell Distribution Width 15.7 % (11.6-14.8); White Blood Cell Count 16.2 X10^3/uL (4.5-11.0)
== END ==
PROVIDERS: PCP Physician Assistant; Referring Provider Internal Medicine Hematology; Visit Provider Internal Medicine Hematology
DX: D69.3 Immune thrombocytopenic purpura (principal)
CPT/HCPCS: 36415; 85025

== ENCOUNTER → 2020-09-07 06:37 | Outpatient (CLI) | payer MEDICARE, OTHER, SELFPAY ==
[2020-04-24 11:11] VITALS: BMI 20.5
[2020-09-07 07:25] LABS: Add Manual Diff / Slide Review NO; Basophils Absolute Auto 100 /uL (0-100); Eosinophils Absolute Auto 200 /uL (0-450); Eosinophils Percent Auto 1.8 % (2-4); Hematocrit 40.1 % (36-46); Hemoglobin 13.3 g/dL (12.0-16.0); Lymphocytes Absolute Auto 3300 /uL (1100-4500); Lymphocytes Percent Auto 27.9 % (25-40); Mean Corpuscular HGB Conc 33.1 % (30-36); Mean Corpuscular Hemoglobin 31.9 PG (26-34); Mean Corpuscular Volume 96.4 fL (80-100); Monocytes Absolute Auto 800 /uL (0-900); Monocytes Percent Auto 6.7 % (3-14); Neutrophils Absolute Auto 7300 /uL (1500-7000); Neutrophils Percent Auto 62.6 % (50-75); Platelet Count 615 X10^3/uL (150-400); Red Blood Cell Count 4.16 X10^6/uL (4.0-5.2); Red Cell Distribution Width 15.6 % (11.6-14.8); White Blood Cell Count 11.7 X10^3/uL (4.5-11.0)
[2020-09-07 07:36] LABS: Alanine Aminotransferase 18 IU/L (<35); Albumin 4.3 g/dL (3.5-5.0); Albumin Globulin Ratio 1.1 (1.0-2.8); Alkaline Phosphatase 56 U/L (38-126); Aspartate Aminotransferase 28 IU/L (14-36); Bilirubin Total 0.5 mg/dL (0.2-1.3); Bilirubin Unconjugated 0.4 mg/dL (0.0-1.1); Globulin 3.8 g/dL (1.7-4.1); HEMOLYSIS < 15 (0-50); Total Protein 8.1 g/dL (6.3-8.2)
[2020-09-07 09:05] LABS: HEMOLYSIS < 15 (0-50); Iron 101 ug/dL (37-170)
[2020-09-07 09:10] LABS: BUN Creatinine Ratio 17.9 (6-22); Blood Urea Nitrogen 17 mg/dL (7-17); Calcium 10.8 mg/dL (8.4-10.2); Carbon Dioxide 31 mmol/L (22-32); Chloride 101 mmol/L (98-107); Estimated Glomerular Filt Rate 56.6 mL/min (>60); Glucose 80 mg/dL (80-110); HEMOLYSIS < 15 (0-50); Potassium 5.2 mmol/L (3.4-5.1); Sodium 138 mmol/L (137-145)
[2020-09-07 09:16] LABS: Percent Iron Saturation 36 % (15-50); Total Iron Binding Capacity 280 ug/dL (265-497); Transferrin 224 mg/dL (206-381)
[2020-09-07 09:37] LABS: TSH w/ Reflex to FT4 1.58 uIU/mL (0.47-4.68)
== END ==
PROVIDERS: PCP Physician Assistant; Referring Provider Internal Medicine Hematology; Visit Provider Internal Medicine Hematology
DX: D69.3 Immune thrombocytopenic purpura (principal); E87.1 Hypo-osmolality and hyponatremia; L65.9 Nonscarring hair loss, unspecified; D50.9 Iron deficiency anemia, unspecified
CPT/HCPCS: 36415; 80048; 80076; 83540; 83550; 84443; 85025

== ENCOUNTER → 2020-09-14 06:38 | Outpatient (CLI) | payer MEDICARE, OTHER, SELFPAY ==
[2020-04-24 11:11] VITALS: BMI 20.5
[2020-09-14 08:10] LABS: Add Manual Diff / Slide Review NO; Basophils Absolute Auto 200 /uL (0-100); Basophils Percent Auto 1.4 % (0-2); Eosinophils Absolute Auto 400 /uL (0-450); Eosinophils Percent Auto 3.2 % (2-4); Hematocrit 39.2 % (36-46); Hemoglobin 13.3 g/dL (12.0-16.0); Lymphocytes Absolute Auto 3100 /uL (1100-4500); Lymphocytes Percent Auto 27.5 % (25-40); Mean Corpuscular HGB Conc 33.8 % (30-36); Mean Corpuscular Hemoglobin 32.5 PG (26-34); Monocytes Absolute Auto 900 /uL (0-900); Monocytes Percent Auto 7.9 % (3-14); Neutrophils Absolute Auto 6800 /uL (1500-7000); Platelet Count 377 X10^3/uL (150-400); Red Blood Cell Count 4.09 X10^6/uL (4.0-5.2); Red Cell Distribution Width 15.8 % (11.6-14.8); White Blood Cell Count 11.3 X10^3/uL (4.5-11.0)
[2020-09-14 15:38] LABS: BUN Creatinine Ratio 18.1 (6-22); Blood Urea Nitrogen 15 mg/dL (7-17); Carbon Dioxide 29 mmol/L (22-32); Chloride 104 mmol/L (98-107); Estimated Glomerular Filt Rate > 60.0 mL/min (>60); Glucose 60 mg/dL (80-110); HEMOLYSIS < 15 (0-50); Iron 83 ug/dL (37-170); Sodium 139 mmol/L (137-145)
[2020-09-14 15:47] LABS: Percent Iron Saturation 29 % (15-50); Total Iron Binding Capacity 285 ug/dL (265-497)
[2020-09-14 15:49] LABS: Potassium 5.9 mmol/L (3.4-5.1)
[2020-09-14 16:09] LABS: TSH w/ Reflex to FT4 1.27 uIU/mL (0.47-4.68)
[2020-09-15 06:18] LABS: Parathyroid Hormone Int 38 pg/mL (15-65)
== END ==
PROVIDERS: Internal Medicine Hematology; PCP Physician Assistant; Referring Provider Physician Assistant; Visit Provider Physician Assistant
DX: L65.9 Nonscarring hair loss, unspecified (principal); E87.1 Hypo-osmolality and hyponatremia; D69.3 Immune thrombocytopenic purpura
CPT/HCPCS: 36415; 80048; 83540; 83550; 83970; 84443; 85025

== ENCOUNTER → 2020-09-21 06:36 | Outpatient (CLI) | payer MEDICARE, OTHER, SELFPAY ==
[2020-04-24 11:11] VITALS: BMI 20.5
[2020-09-21 07:57] LABS: Add Manual Diff / Slide Review NO; Basophils Absolute Auto 200 /uL (0-100); Basophils Percent Auto 1.8 % (0-2); Eosinophils Absolute Auto 300 /uL (0-450); Eosinophils Percent Auto 2.6 % (2-4); Hemoglobin 13.2 g/dL (12.0-16.0); Lymphocytes Absolute Auto 3500 /uL (1100-4500); Lymphocytes Percent Auto 31.6 % (25-40); Mean Corpuscular HGB Conc 32.9 % (30-36); Mean Corpuscular Hemoglobin 31.7 PG (26-34); Mean Corpuscular Volume 96.5 fL (80-100); Monocytes Absolute Auto 1000 /uL (0-900); Monocytes Percent Auto 8.7 % (3-14); Neutrophils Absolute Auto 6100 /uL (1500-7000); Neutrophils Percent Auto 55.3 % (50-75); Platelet Count 89 X10^3/uL (150-400); Red Blood Cell Count 4.15 X10^6/uL (4.0-5.2); Red Cell Distribution Width 15.1 % (11.6-14.8)
[2020-09-21 08:08] LABS: Alanine Aminotransferase 18 IU/L (<35); Albumin 4.2 g/dL (3.5-5.0); Albumin Globulin Ratio 1.2 (1.0-2.8); Alkaline Phosphatase 56 U/L (38-126); Aspartate Aminotransferase 29 IU/L (14-36); BUN Creatinine Ratio 18.2 (6-22); Bilirubin Total 0.6 mg/dL (0.2-1.3); Bilirubin Unconjugated 0.5 mg/dL (0.0-1.1); Blood Urea Nitrogen 16 mg/dL (7-17); Carbon Dioxide 30 mmol/L (22-32); Chloride 102 mmol/L (98-107); Estimated Glomerular Filt Rate > 60.0 mL/min (>60); Globulin 3.4 g/dL (1.7-4.1); Glucose 72 mg/dL (80-110); HEMOLYSIS < 15 (0-50); Phosphorous 3.5 mg/dL (2.8-4.1); Potassium 5.1 mmol/L (3.4-5.1); Sodium 139 mmol/L (137-145); Total Protein 7.6 g/dL (6.3-8.2)
== END ==
PROVIDERS: PCP Physician Assistant; Referring Provider Internal Medicine Hematology; Visit Provider Internal Medicine Hematology
DX: D69.3 Immune thrombocytopenic purpura (principal)
CPT/HCPCS: 36415; 80053; 80069; 80076; 85025

== ENCOUNTER 2020-09-21 07:17 | Outpatient (RCR) | payer MEDICARE, OTHER, SELFPAY ==
[2020-04-24 11:11] VITALS: BMI 20.5
--- NOTE | 2020-09-21 16:15 | PT.OIE ---
Current Diagnoses Fecal smearing (09/21/20) Unspecified urinary incontinence (09/21/20) Past Medical History (Last Reviewed 08/19/20 @ 00:44 by Nehemiah Medina DO) Anxiety Atrial flutter Chronic steroid use History of ITP Hypertension Microscopic hematuria Osteoporosis Scoliosis Past Surgical History (Last Reviewed 07/14/20 @ 17:16 by Rafia Caceres MD) History of splenectomy History of tonsillectomy Status post hysterectomy Visit Care Team Role Provider Type Henny Dinh PA-C Primary Care Provider Non-Staff Specialty: Internal Medicine Address: [address] [place] [address] Email: [email or web address] Rafia Caceres MD Attending Provider Physician Referring Provider Specialty: PILOT CONTROL OPERATOR HELPER Address: [address] [place] [address], [facility] Email: Physical Therapy Initial Evaluation PT-OP-A Visit Information Start: 09/20/20 15:22 Freq: Status: Active Protocol: Document 09/21/20 07:30 AMB (Rec: 09/21/20 16:04 AMB [email or web address]) Out-Patient Physical Therapy Visit Information Visit Information Visit Type Initial Evaluation Visit Start Time 07:30 Visit Stop Time 08:15 Total Visit Minutes 45 Visit Number 1 PT-OP-B Current Condition Start: 09/20/20 15:22 Freq: Status: Active Protocol: Document 09/21/20 07:31 AMB (Rec: 09/21/20 07:59 AMB [id number]) Current Condition History of Current Condition Onset Date a few months ago Current Complaints Urge/stress urinary/ fecal mucus incontinence, voiding bladder History of Current Condition Yana had a hysterectomy years ago, but has noticed more heaviness and difficulty fully voiding her bladder. Dr. Caceres put her on premarin and that has helped with the fully evacuating her bladder. She also has urge incontinence in the night, gets up 2x and feels like she has to kwong. Leaking urine with coughing. termite control service representative prednisone usage has thinned the skin. Most worried about bowels. Unaware of leaking mucus but even when wiping after voiding urine she notes mucus from rectum and it shows up on her panti liner. Treatment Goals Patient/Caregiver Goals Reduce both urinary and fecal incontinence Prior Functional Status Baseline Function- ADL's Independent Baseline Function- Mobility Independent Current Functional Impairments (Reported) Functional Limitations- ADL's Incontinence Personal Factors Other Personal Factors That May Effect termite control service representative prednisone usage and Therapy/Recovery side effects of skin thinning from that, scoliosis, osteoporosis, hypertension, low back pain. PT-OP-C Subjective Start: 09/20/20 15:22 Freq: Status: Active Protocol: Document 09/21/20 07:30 AMB (Rec: 09/21/20 16:04 AMB [email or web address]) Patient Questionnaires Pelvic Pain and Urgency/Frequency Patient Symptom Scale Pelvic Pain Score 2 OP-PT Pain Assessment Comments Pain Comments pain in bilateral legs due to hematoma/chronic wounds PT-OP-I Pelvic Floor Start: 09/20/20 15:22 Freq: Status: Active Protocol: Document 09/21/20 07:30 AMB (Rec: 09/21/20 16:04 AMB [email or web address]) Pelvic Floor Assessment Urine Pelvic Floor Surgery Yes: hysterectomy, bladder sling Urinary Symptoms Urge Sensation,Prolapse, Incomplete Emptying,Falling Out Feeling/Heavy Leakage Size Small Leakage Cause Cough,Sneeze Voiding Frequency 4x/day Nocturia 2 Urine Pad Type Panty Liner Bowel Bowel Surgery No Bowel Symptoms Fecal Leakage Other Bowel Symptoms on miralax due to previous constipation Bowel Movement Frequency 3-4x/day [place] Stool Chart Type 1-7 5 Prolapse Cystocele Grade 2 Perineal Descent Resting Absent Bearing Present Contraction Ability Voluntary Contraction Weak Voluntary Relaxation Weak Manual Muscle Testing Left 1 Manual Muscle Testing Right 1 Manual Muscle Testing Anterior 1 Manual Muscle Testing Posterior 1 Muscle Endurance (Seconds) 3 Number of Quick Contractions In 10 3 Seconds Comments Pelvic Floor Comments Pt tends to over utilize abs, PT-OP-T Assessment and Plan Start: 09/20/20 15:22 Freq: Status: Active Protocol: Document 09/21/20 07:30 AMB (Rec: 09/21/20 16:04 AMB [email or web address]) Physical Therapy Assessment Rehab Potential Rehabilitation Potential Good Evaluation Complexity Number of Personal Factors/Comorbidities 3 or More Clinical Presentation at Evaluation Stable Impairments Impairments Strength Goals Three Impairment fecal incontinence Short Term Goal (STG) Yana will have reduced fecal incontinence so that she does not leak mucus throughout her day. STG Duration 4 weeks Two Impairment pelvic floor strength Short Term Goal (STG) Yana will be independent and consistent with a HEP for pelvic floor strengthening. STG Duration 4 weeks Lead Sewage Plant Operator Goal (LTG) Yana will improve her pelvic floor strength to 3/5 so that she can contract her pelvic floor for 10 seconds in standing without compensation. LTG Duration 8 weeks One Impairment urinary incontinence Short Term Goal (STG) Yana will use urge suppression techniques to be able to walk slowly to the bathroom rather than having to kwong. STG Duration 4 weeks Fci Goal (LTG) Yana will contract her pelvic floor with cough/sneeze to reduce her stress urinary incontinence. LTG Duration 8 weeks Assessment Summary Assessment Yana attends physical therapy with symptoms of urinary urgency, mild stress urinary incontinence, fecal leaking, and was having difficulty fully evacuating the bladder. The evacuating the bladder is better with the premarin cream she has been using. The fecal leaking is new and she is wondering if the miralax has something to do with that, although she has been taking miralax for a long time now due to chronic constipation. She had a difficult time faustina her pelivc floor in evaluation and tended to use her lower abdominal muscles more than her pelvic floor. She will benefit from physical therapy to help her strengthen her pelvic floor to help decrease her symptoms of urgency, stress urinary incontinence, and fecal leaking. We held off on biofeedback due to her poor platelet count and skin thinness due to chronic prednisone usage, she tolerated a manual assessment of her strength well with no pain or bleeding. Physical Therapy Plan Frequency and Duration Frequency of Treatment 1x/Week Duration of Treatment 8 weeks Plan of Care Start Date 02/22/20 Plan of Care End Date 11/16/20 Therapeutic Interventions Therapeutic Interventions Home Exercise Program,Manual Therapy,Neuromuscular Re- education,Self-Care/Home Management,Therapeutic Activities,Therapeutic Exercises Modalities Biofeedback,Cold Pack/Ice Massage,Electric Stimulation Next Visit Focus/Plan Next Note Type Treatment Note Next Visit Plan Progress pelvic floor strengthening with focus on not compensating with abdominals
--- NOTE | 2020-09-21 16:16 | PT.OPPOC ---
Physical, Occupational & Speech Therapy At [facility] Current Diagnoses Fecal smearing (09/21/20) Unspecified urinary incontinence (09/21/20) Visit Care Team Role Provider Type Henny Dinh PA-C Primary Care Provider Non-Staff Specialty: Internal Medicine Address: [address] [place] [address], [id number] Email: [email or web address] Rafia Caceres MD Attending Provider Physician Referring Provider Specialty: VICE PRESIDENT RISK MANAGEMENT Address: [address] [place] [address], [id number] Email: Plan Of Care PT-OP-T Assessment and Plan Start: 09/20/20 15:22 Freq: Status: Active Protocol: Document 09/21/20 07:30 AMB (Rec: 09/21/20 16:04 AMB [email or web address]) Physical Therapy Assessment Rehab Potential Rehabilitation Potential Good Evaluation Complexity Number of Personal Factors/Comorbidities 3 or More Clinical Presentation at Evaluation Stable Impairments Impairments Strength Goals Three Impairment fecal incontinence Short Term Goal (STG) Yana will have reduced fecal incontinence so that she does not leak mucus throughout her day. STG Duration 4 weeks Two Impairment pelvic floor strength Short Term Goal (STG) Yana will be independent and consistent with a HEP for pelvic floor strengthening. STG Duration 4 weeks Snf Goal (LTG) Yana will improve her pelvic floor strength to 3/5 so that she can contract her pelvic floor for 10 seconds in standing without compensation. LTG Duration 8 weeks One Impairment urinary incontinence Short Term Goal (STG) Yana will use urge suppression techniques to be able to walk slowly to the bathroom rather than having to kwong. STG Duration 4 weeks Snf Goal (LTG) Yana will contract her pelvic floor with cough/sneeze to reduce her stress urinary incontinence. LTG Duration 8 weeks Assessment Summary Assessment Yana attends physical therapy with symptoms of urinary urgency, mild stress urinary incontinence, fecal leaking, and was having difficulty fully evacuating the bladder. The evacuating the bladder is better with the premarin cream she has been using. The fecal leaking is new and she is wondering if the miralax has something to do with that, although she has been taking miralax for a long time now due to chronic constipation. She had a difficult time faustina her pelivc floor in evaluation and tended to use her lower abdominal muscles more than her pelvic floor. She will benefit from physical therapy to help her strengthen her pelvic floor to help decrease her symptoms of urgency, stress urinary incontinence, and fecal leaking. We held off on biofeedback due to her poor platelet count and skin thinness due to chronic prednisone usage, she tolerated a manual assessment of her strength well with no pain or bleeding. Physical Therapy Plan Frequency and Duration Frequency of Treatment 1x/Week Duration of Treatment 8 weeks Plan of Care Start Date 02/22/20 Plan of Care End Date 11/16/20 Therapeutic Interventions Therapeutic Interventions Home Exercise Program,Manual Therapy,Neuromuscular Re- education,Self-Care/Home Management,Therapeutic Activities,Therapeutic Exercises Modalities Biofeedback,Cold Pack/Ice Massage,Electric Stimulation Next Visit Focus/Plan Next Note Type Treatment Note Next Visit Plan Progress pelvic floor strengthening with focus on not compensating with abdominals Plan of Care Dates Plan of Care Start Date 02/22/20 Plan of Care End Date 11/16/20 Electronically Signed by: Marichuy Conrad, PT 09/21/20 4230 Please Sign and Return: I have reviewed this Plan of Care and certify that the skilled therapy services above are required to meet the patient?s needs. Physician Signature Date Printed Name and Credentials Clinical Instructor Signature Printed Name and Credentials
--- NOTE | 2020-11-01 15:05 | PT.OPDS ---
Current Diagnoses Fecal smearing (09/21/20) Unspecified urinary incontinence (09/21/20) Visit Care Team Role Provider Type Henny Dinh PA-C Primary Care Provider Non-Staff Specialty: Internal Medicine Address: [address] [place] [address], [id number] Email: [email or web address] Rafia Caceres MD Attending Provider Physician Referring Provider Specialty: BUSINESS SUPPORT LIAISON Address: [address] [place] [address], [id number] Email: Visit Number Visit Number 1 Discharge Summary PT-OP-B Current Condition Start: 09/20/20 15:22 Freq: Status: Active Protocol: Document 09/21/20 07:31 AMB (Rec: 09/21/20 07:59 AMB [id number]) Current Condition History of Current Condition Onset Date a few months ago Current Complaints Urge/stress urinary/ fecal mucus incontinence, voiding bladder History of Current Condition Yana had a hysterectomy years ago, but has noticed more heaviness and difficulty fully voiding her bladder. Dr. Caceres put her on premarin and that has helped with the fully evacuating her bladder. She also has urge incontinence in the night, gets up 2x and feels like she has to kwong. Leaking urine with coughing. manager long term care prednisone usage has thinned the skin. Most worried about bowels. Unaware of leaking mucus but even when wiping after voiding urine she notes mucus from rectum and it shows up on her panti liner. Treatment Goals Patient/Caregiver Goals Reduce both urinary and fecal incontinence Prior Functional Status Baseline Function- ADL's Independent Baseline Function- Mobility Independent Current Functional Impairments (Reported) Functional Limitations- ADL's Incontinence Personal Factors Other Personal Factors That May Effect penitentiary prednisone usage and Therapy/Recovery side effects of skin thinning from that, scoliosis, osteoporosis, hypertension, low back pain. PT-OP-C Subjective Start: 09/20/20 15:22 Freq: Status: Active Protocol: Document 09/21/20 07:30 AMB (Rec: 09/21/20 16:04 AMB [email or web address]) Patient Questionnaires Pelvic Pain and Urgency/Frequency Patient Symptom Scale Pelvic Pain Score 2 OP-PT Pain Assessment Comments Pain Comments pain in bilateral legs due to hematoma/chronic wounds PT-OP-I Pelvic Floor Start: 09/20/20 15:22 Freq: Status: Active Protocol: Document 09/21/20 07:30 AMB (Rec: 09/21/20 16:04 AMB [email or web address]) Pelvic Floor Assessment Urine Pelvic Floor Surgery Yes: hysterectomy, bladder sling Urinary Symptoms Urge Sensation,Prolapse, Incomplete Emptying,Falling Out Feeling/Heavy Leakage Size Small Leakage Cause Cough,Sneeze Voiding Frequency 4x/day Nocturia 2 Urine Pad Type Panty Liner Bowel Bowel Surgery No Bowel Symptoms Fecal Leakage Other Bowel Symptoms on miralax due to previous constipation Bowel Movement Frequency 3-4x/day [place] Stool Chart Type 1-7 5 Prolapse Cystocele Grade 2 Perineal Descent Resting Absent Bearing Present Contraction Ability Voluntary Contraction Weak Voluntary Relaxation Weak Manual Muscle Testing Left 1 Manual Muscle Testing Right 1 Manual Muscle Testing Anterior 1 Manual Muscle Testing Posterior 1 Muscle Endurance (Seconds) 3 Number of Quick Contractions In 10 3 Seconds Comments Pelvic Floor Comments Pt tends to over utilize abs, PT-OP-T Assessment and Plan Start: 09/20/20 15:22 Freq: Status: Active Protocol: Document 11/01/20 15:04 AMB (Rec: 11/01/20 15:05 AMB [email or web address]) Physical Therapy Plan Discharge Physical Therapy Discharge Reasons No Longer Attending PT Discharge Comments Patient canceled her only follow up appointment and has not been seen in 40 days.
== END 2020-11-02 07:49 | disposition home or self-care (01) ==
LOC: PHYS 07:17
PROVIDERS: PCP Physician Assistant; Referring Provider Obstetrics & Gynecology; Visit Provider Obstetrics & Gynecology
DX: R32 Unspecified urinary incontinence (principal); R15.1 Fecal smearing
CPT/HCPCS: 97161

== ENCOUNTER → 2020-09-23 07:40 | Outpatient (CLI) | payer MEDICARE, OTHER, SELFPAY ==
[2020-04-24 11:11] VITALS: BMI 20.5
[2020-09-23 08:20] LABS: Add Manual Diff / Slide Review NO; Basophils Absolute Auto 100 /uL (0-100); Basophils Percent Auto 1.3 % (0-2); Eosinophils Absolute Auto 200 /uL (0-450); Eosinophils Percent Auto 2.1 % (2-4); Hematocrit 42.8 % (36-46); Hemoglobin 14.5 g/dL (12.0-16.0); Lymphocytes Absolute Auto 3500 /uL (1100-4500); Lymphocytes Percent Auto 32.1 % (25-40); Mean Corpuscular Hemoglobin 32.3 PG (26-34); Mean Corpuscular Volume 95.2 fL (80-100); Monocytes Absolute Auto 1000 /uL (0-900); Monocytes Percent Auto 9.4 % (3-14); Neutrophils Absolute Auto 6100 /uL (1500-7000); Neutrophils Percent Auto 55.1 % (50-75); Platelet Count 73 X10^3/uL (150-400); Red Cell Distribution Width 15.2 % (11.6-14.8)
== END ==
PROVIDERS: PCP Physician Assistant; Referring Provider Internal Medicine Hematology; Visit Provider Internal Medicine Hematology
DX: F90.9 Attention-deficit hyperactivity disorder, unspecified type (principal); G47.10 Hypersomnia, unspecified; F41.1 Generalized anxiety disorder
CPT/HCPCS: 36415; 85025

== ENCOUNTER → 2020-09-28 10:37 | Outpatient (CLI) | payer MEDICARE, OTHER, SELFPAY ==
[2020-04-24 11:11] VITALS: BMI 20.5
[2020-09-28 11:39] LABS: Add Manual Diff / Slide Review NO; Basophils Absolute Auto 200 /uL (0-100); Basophils Percent Auto 1.3 % (0-2); Eosinophils Absolute Auto 300 /uL (0-450); Eosinophils Percent Auto 2.1 % (2-4); Hematocrit 40.2 % (36-46); Hemoglobin 13.4 g/dL (12.0-16.0); Lymphocytes Absolute Auto 3200 /uL (1100-4500); Lymphocytes Percent Auto 21.9 % (25-40); Mean Corpuscular HGB Conc 33.3 % (30-36); Mean Corpuscular Hemoglobin 31.8 PG (26-34); Mean Corpuscular Volume 95.5 fL (80-100); Monocytes Absolute Auto 1100 /uL (0-900); Monocytes Percent Auto 7.2 % (3-14); Neutrophils Absolute Auto 9900 /uL (1500-7000); Neutrophils Percent Auto 67.5 % (50-75); Platelet Count 258 X10^3/uL (150-400); Red Blood Cell Count 4.21 X10^6/uL (4.0-5.2); Red Cell Distribution Width 14.8 % (11.6-14.8); White Blood Cell Count 14.7 X10^3/uL (4.5-11.0)
[2020-09-28 11:59] LABS: Alanine Aminotransferase 17 IU/L (<35); Albumin 4.4 g/dL (3.5-5.0); Albumin Globulin Ratio 1.5 (1.0-2.8); Alkaline Phosphatase 59 U/L (38-126); Aspartate Aminotransferase 26 IU/L (14-36); BUN Creatinine Ratio 20.4 (6-22); Bilirubin Total 0.5 mg/dL (0.2-1.3); Bilirubin Unconjugated 0.4 mg/dL (0.0-1.1); Blood Urea Nitrogen 19 mg/dL (7-17); Calcium 9.9 mg/dL (8.4-10.2); Carbon Dioxide 29 mmol/L (22-32); Chloride 101 mmol/L (98-107); Globulin 2.9 g/dL (1.7-4.1); Glucose 99 mg/dL (80-110); HEMOLYSIS < 15 (0-50); Phosphorous 3.5 mg/dL (2.8-4.1); Sodium 136 mmol/L (137-145); Total Protein 7.3 g/dL (6.3-8.2)
[2020-09-28 12:02] LABS: Potassium 5.9 mmol/L (3.4-5.1)
== END ==
PROVIDERS: PCP Physician Assistant; Referring Provider Internal Medicine Hematology; Visit Provider Internal Medicine Hematology
DX: D69.3 Immune thrombocytopenic purpura (principal)
CPT/HCPCS: 36415; 80053; 80069; 80076; 85025

== ENCOUNTER → 2020-10-02 06:36 | Outpatient (CLI) | payer MEDICARE, OTHER, SELFPAY ==
[2020-04-24 11:11] VITALS: BMI 20.5
[2020-10-02 07:57] LABS: Add Manual Diff / Slide Review NO; Basophils Absolute Auto 200 /uL (0-100); Basophils Percent Auto 1.1 % (0-2); Eosinophils Absolute Auto 400 /uL (0-450); Eosinophils Percent Auto 2.9 % (2-4); Hematocrit 40.7 % (36-46); Hemoglobin 13.7 g/dL (12.0-16.0); Lymphocytes Absolute Auto 3100 /uL (1100-4500); Lymphocytes Percent Auto 20.6 % (25-40); Mean Corpuscular HGB Conc 33.7 % (30-36); Mean Corpuscular Volume 95.1 fL (80-100); Monocytes Absolute Auto 1200 /uL (0-900); Monocytes Percent Auto 7.9 % (3-14); Neutrophils Absolute Auto 10100 /uL (1500-7000); Neutrophils Percent Auto 67.5 % (50-75); Platelet Count 499 X10^3/uL (150-400); Red Blood Cell Count 4.28 X10^6/uL (4.0-5.2); Red Cell Distribution Width 14.6 % (11.6-14.8)
[2020-10-02 07:58] LABS: Alanine Aminotransferase 17 IU/L (<35); Albumin 4.1 g/dL (3.5-5.0); Albumin Globulin Ratio 1.3 (1.0-2.8); Alkaline Phosphatase 56 U/L (38-126); Aspartate Aminotransferase 26 IU/L (14-36); Bilirubin Total 0.4 mg/dL (0.2-1.3); Bilirubin Unconjugated 0.3 mg/dL (0.0-1.1); Blood Urea Nitrogen 18 mg/dL (7-17); Calcium 9.8 mg/dL (8.4-10.2); Carbon Dioxide 30 mmol/L (22-32); Chloride 98 mmol/L (98-107); Estimated Glomerular Filt Rate > 60.0 mL/min (>60); Globulin 3.2 g/dL (1.7-4.1); Glucose 67 mg/dL (80-110); HEMOLYSIS < 15 (0-50); Sodium 134 mmol/L (137-145); Total Protein 7.3 g/dL (6.3-8.2)
[2020-10-02 14:40] LABS: Phosphorous 3.8 mg/dL (2.8-4.1)
== END ==
PROVIDERS: PCP Physician Assistant; Referring Provider Internal Medicine Hematology; Visit Provider Internal Medicine Hematology
DX: D69.3 Immune thrombocytopenic purpura (principal)
CPT/HCPCS: 36415; 80053; 80069; 80076; 85025

== ENCOUNTER → 2020-10-05 06:35 | Outpatient (CLI) | payer MEDICARE, OTHER, SELFPAY ==
[2020-04-24 11:11] VITALS: BMI 20.5
[2020-10-05 08:15] LABS: Add Manual Diff / Slide Review NO; Basophils Absolute Auto 400 /uL (0-100); Basophils Percent Auto 2.7 % (0-2); Eosinophils Absolute Auto 400 /uL (0-450); Eosinophils Percent Auto 2.8 % (2-4); Hematocrit 38.8 % (36-46); Hemoglobin 12.9 g/dL (12.0-16.0); Lymphocytes Absolute Auto 2600 /uL (1100-4500); Lymphocytes Percent Auto 20.3 % (25-40); Mean Corpuscular HGB Conc 33.2 % (30-36); Mean Corpuscular Hemoglobin 31.7 PG (26-34); Mean Corpuscular Volume 95.6 fL (80-100); Monocytes Absolute Auto 1100 /uL (0-900); Monocytes Percent Auto 8.5 % (3-14); Neutrophils Absolute Auto 8500 /uL (1500-7000); Neutrophils Percent Auto 65.7 % (50-75); Platelet Count 663 X10^3/uL (150-400); Red Blood Cell Count 4.05 X10^6/uL (4.0-5.2); Red Cell Distribution Width 14.6 % (11.6-14.8); White Blood Cell Count 12.9 X10^3/uL (4.5-11.0)
[2020-10-05 08:59] LABS: Alanine Aminotransferase 15 IU/L (<35); Albumin 3.9 g/dL (3.5-5.0); Albumin Globulin Ratio 1.3 (1.0-2.8); Alkaline Phosphatase 56 U/L (38-126); Aspartate Aminotransferase 26 IU/L (14-36); BUN Creatinine Ratio 17.2 (6-22); Bilirubin Total 0.4 mg/dL (0.2-1.3); Blood Urea Nitrogen 16 mg/dL (7-17); Calcium 9.7 mg/dL (8.4-10.2); Carbon Dioxide 29 mmol/L (22-32); Chloride 101 mmol/L (98-107); Globulin 2.9 g/dL (1.7-4.1); Glucose 75 mg/dL (80-110); HEMOLYSIS < 15 (0-50); Phosphorous 3.8 mg/dL (2.8-4.1); Sodium 135 mmol/L (137-145); Total Protein 6.8 g/dL (6.3-8.2)
[2020-10-05 09:01] LABS: Potassium 5.7 mmol/L (3.4-5.1)
== END ==
PROVIDERS: PCP Physician Assistant; Referring Provider Internal Medicine Hematology; Visit Provider Internal Medicine Hematology
DX: D69.3 Immune thrombocytopenic purpura (principal)
CPT/HCPCS: 36415; 80053; 80069; 85025

== ENCOUNTER → 2020-10-12 06:33 | Outpatient (CLI) | payer MEDICARE, OTHER, SELFPAY ==
[2020-04-24 11:11] VITALS: BMI 20.5
[2020-10-12 07:16] LABS: Add Manual Diff / Slide Review NO; Basophils Absolute Auto 100 /uL (0-100); Basophils Percent Auto 0.8 % (0-2); Eosinophils Absolute Auto 400 /uL (0-450); Hematocrit 40.2 % (36-46); Hemoglobin 13.4 g/dL (12.0-16.0); Lymphocytes Absolute Auto 3200 /uL (1100-4500); Lymphocytes Percent Auto 22.3 % (25-40); Mean Corpuscular HGB Conc 33.5 % (30-36); Mean Corpuscular Hemoglobin 31.7 PG (26-34); Mean Corpuscular Volume 94.7 fL (80-100); Monocytes Absolute Auto 1200 /uL (0-900); Monocytes Percent Auto 8.3 % (3-14); Neutrophils Absolute Auto 9300 /uL (1500-7000); Neutrophils Percent Auto 65.6 % (50-75); Platelet Count 692 X10^3/uL (150-400); Red Blood Cell Count 4.24 X10^6/uL (4.0-5.2); Red Cell Distribution Width 14.6 % (11.6-14.8); White Blood Cell Count 14.2 X10^3/uL (4.5-11.0)
[2020-10-12 07:23] LABS: Alanine Aminotransferase 15 IU/L (<35); Albumin 4.5 g/dL (3.5-5.0); Albumin Globulin Ratio 1.6 (1.0-2.8); Alkaline Phosphatase 60 U/L (38-126); Aspartate Aminotransferase 24 IU/L (14-36); BUN Creatinine Ratio 18.2 (6-22); Bilirubin Total 0.5 mg/dL (0.2-1.3); Blood Urea Nitrogen 18 mg/dL (7-17); Calcium 9.9 mg/dL (8.4-10.2); Carbon Dioxide 32 mmol/L (22-32); Chloride 102 mmol/L (98-107); Globulin 2.9 g/dL (1.7-4.1); Glucose 69 mg/dL (80-110); HEMOLYSIS < 15 (0-50); Phosphorous 3.6 mg/dL (2.8-4.1); Potassium 5.3 mmol/L (3.4-5.1); Sodium 137 mmol/L (137-145); Total Protein 7.4 g/dL (6.3-8.2)
== END ==
PROVIDERS: PCP Physician Assistant; Referring Provider Internal Medicine Hematology; Visit Provider Internal Medicine Hematology
DX: D69.3 Immune thrombocytopenic purpura (principal)
CPT/HCPCS: 36415; 80053; 80069; 85025

== ENCOUNTER → 2020-10-19 06:39 | Outpatient (CLI) | payer MEDICARE, OTHER, SELFPAY ==
[2020-04-24 11:11] VITALS: BMI 20.5
[2020-10-19 07:14] LABS: Add Manual Diff / Slide Review NO; Basophils Absolute Auto 300 /uL (0-100); Basophils Percent Auto 2.3 % (0-2); Eosinophils Absolute Auto 400 /uL (0-450); Eosinophils Percent Auto 3.7 % (2-4); Hematocrit 39.2 % (36-46); Lymphocytes Absolute Auto 3100 /uL (1100-4500); Lymphocytes Percent Auto 26.1 % (25-40); Mean Corpuscular HGB Conc 33.3 % (30-36); Mean Corpuscular Hemoglobin 31.5 PG (26-34); Mean Corpuscular Volume 94.6 fL (80-100); Monocytes Absolute Auto 1100 /uL (0-900); Monocytes Percent Auto 9.6 % (3-14); Neutrophils Absolute Auto 6800 /uL (1500-7000); Neutrophils Percent Auto 58.3 % (50-75); Platelet Count 137 X10^3/uL (150-400); Red Blood Cell Count 4.15 X10^6/uL (4.0-5.2); Red Cell Distribution Width 14.7 % (11.6-14.8); White Blood Cell Count 11.7 X10^3/uL (4.5-11.0)
== END ==
PROVIDERS: PCP Physician Assistant; Referring Provider Internal Medicine Hematology; Visit Provider Internal Medicine Hematology
DX: D69.3 Immune thrombocytopenic purpura (principal)
CPT/HCPCS: 36415; 85025

== ENCOUNTER → 2020-10-25 06:34 | Outpatient (CLI) | payer MEDICARE, OTHER, SELFPAY ==
[2020-04-24 11:11] VITALS: BMI 20.5
[2020-10-25 07:29] LABS: Basophils Absolute Auto 100 /uL (0-100); Eosinophils Absolute Auto 100 /uL (0-450); Eosinophils Percent Auto 0.7 % (2-4); Hematocrit 38.7 % (36-46); Lymphocytes Absolute Auto 2300 /uL (1100-4500); Lymphocytes Percent Auto 17.5 % (25-40); Mean Corpuscular HGB Conc 33.6 % (30-36); Mean Corpuscular Hemoglobin 31.6 PG (26-34); Mean Corpuscular Volume 94.1 fL (80-100); Monocytes Absolute Auto 1200 /uL (0-900); Neutrophils Absolute Auto 9200 /uL (1500-7000); Neutrophils Percent Auto 71.8 % (50-75); Red Blood Cell Count 4.11 X10^6/uL (4.0-5.2); Red Cell Distribution Width 14.4 % (11.6-14.8); White Blood Cell Count 12.9 X10^3/uL (4.5-11.0)
[2020-10-25 07:58] LABS: Alanine Aminotransferase 17 IU/L (<35); Albumin 4.4 g/dL (3.5-5.0); Alkaline Phosphatase 61 U/L (38-126); Aspartate Aminotransferase 24 IU/L (14-36); BUN Creatinine Ratio 22.5 (6-22); Bilirubin Total 0.6 mg/dL (0.2-1.3); Bilirubin Unconjugated 0.5 mg/dL (0.0-1.1); Blood Urea Nitrogen 20 mg/dL (7-17); Calcium 9.8 mg/dL (8.4-10.2); Carbon Dioxide 33 mmol/L (22-32); Chloride 102 mmol/L (98-107); Estimated Glomerular Filt Rate > 60.0 mL/min (>60); Globulin 4.2 g/dL (1.7-4.1); Glucose 75 mg/dL (80-110); HEMOLYSIS < 15 (0-50); Potassium 4.2 mmol/L (3.4-5.1); Sodium 137 mmol/L (137-145); Total Protein 8.6 g/dL (6.3-8.2)
[2020-10-25 08:04] LABS: Add Manual Diff / Slide Review SLIDE REVIEW
[2020-10-25 08:25] LABS: Platelet Count 20 X10^3/uL (150-400); RBC Morphology See
[2020-10-25 08:26] LABS: Platelet Estimate Decreased on smear; Poikilocytosis 1+
== END ==
PROVIDERS: PCP Physician Assistant; Referring Provider Internal Medicine Hematology; Visit Provider Internal Medicine Hematology
DX: D69.3 Immune thrombocytopenic purpura (principal)
CPT/HCPCS: 36415; 80053; 80076; 85025

== ENCOUNTER → 2020-10-27 11:07 | Outpatient (CLI) | payer MEDICARE, OTHER, SELFPAY ==
[2020-04-24 11:11] VITALS: BMI 20.5
[2020-10-27 11:40] LABS: Platelet Count 119 X10^3/uL (150-400)
== END ==
PROVIDERS: Internal Medicine Hematology & Oncology; PCP Physician Assistant; Referring Provider Internal Medicine Hematology; Visit Provider Internal Medicine Hematology
DX: D69.3 Immune thrombocytopenic purpura (principal); D69.6 Thrombocytopenia, unspecified
CPT/HCPCS: 36415; 85049

== ENCOUNTER → 2020-11-03 06:33 | Outpatient (CLI) | payer MEDICARE, OTHER, SELFPAY ==
[2020-04-24 11:11] VITALS: BMI 20.5
[2020-11-03 07:15] LABS: Add Manual Diff / Slide Review NO; Basophils Absolute Auto 100 /uL (0-100); Basophils Percent Auto 1.1 % (0-2); Eosinophils Absolute Auto 200 /uL (0-450); Eosinophils Percent Auto 1.8 % (2-4); Hematocrit 38.6 % (36-46); Hemoglobin 12.8 g/dL (12.0-16.0); Lymphocytes Absolute Auto 2900 /uL (1100-4500); Lymphocytes Percent Auto 26.6 % (25-40); Mean Corpuscular HGB Conc 33.3 % (30-36); Mean Corpuscular Hemoglobin 31.5 PG (26-34); Mean Corpuscular Volume 94.4 fL (80-100); Monocytes Absolute Auto 1000 /uL (0-900); Monocytes Percent Auto 9.1 % (3-14); Neutrophils Absolute Auto 6800 /uL (1500-7000); Neutrophils Percent Auto 61.4 % (50-75); Platelet Count 590 X10^3/uL (150-400); Red Blood Cell Count 4.08 X10^6/uL (4.0-5.2); Red Cell Distribution Width 14.6 % (11.6-14.8); White Blood Cell Count 11.1 X10^3/uL (4.5-11.0)
[2020-11-03 07:24] LABS: Alanine Aminotransferase 17 IU/L (<35); Albumin 4.2 g/dL (3.5-5.0); Albumin Globulin Ratio 0.9 (1.0-2.8); Alkaline Phosphatase 59 U/L (38-126); Aspartate Aminotransferase 28 IU/L (14-36); BUN Creatinine Ratio 16.3 (6-22); Bilirubin Total 0.6 mg/dL (0.2-1.3); Bilirubin Unconjugated 0.6 mg/dL (0.0-1.1); Blood Urea Nitrogen 16 mg/dL (7-17); Calcium 9.6 mg/dL (8.4-10.2); Carbon Dioxide 33 mmol/L (22-32); Chloride 101 mmol/L (98-107); Estimated Glomerular Filt Rate 54.6 mL/min (>60); Globulin 4.8 g/dL (1.7-4.1); Glucose 67 mg/dL (80-110); HEMOLYSIS < 15 (0-50); Phosphorous 3.1 mg/dL (2.8-4.1); Potassium 4.4 mmol/L (3.4-5.1); Sodium 138 mmol/L (137-145)
== END ==
PROVIDERS: PCP Physician Assistant; Referring Provider Internal Medicine Hematology; Visit Provider Internal Medicine Hematology
DX: D69.3 Immune thrombocytopenic purpura (principal)
CPT/HCPCS: 36415; 80053; 80069; 80076; 85025

== ENCOUNTER → 2020-11-06 06:38 | Outpatient (CLI) | payer MEDICARE, OTHER, SELFPAY ==
[2020-04-24 11:11] VITALS: BMI 20.5
[2020-11-06 08:31] LABS: Add Manual Diff / Slide Review NO; Basophils Absolute Auto 200 /uL (0-100); Basophils Percent Auto 1.5 % (0-2); Eosinophils Absolute Auto 100 /uL (0-450); Eosinophils Percent Auto 1.4 % (2-4); Hematocrit 39.2 % (36-46); Hemoglobin 13.1 g/dL (12.0-16.0); Lymphocytes Absolute Auto 2400 /uL (1100-4500); Lymphocytes Percent Auto 22.8 % (25-40); Mean Corpuscular HGB Conc 33.4 % (30-36); Mean Corpuscular Hemoglobin 31.8 PG (26-34); Mean Corpuscular Volume 95.1 fL (80-100); Monocytes Absolute Auto 900 /uL (0-900); Monocytes Percent Auto 8.4 % (3-14); Neutrophils Absolute Auto 7000 /uL (1500-7000); Neutrophils Percent Auto 65.9 % (50-75); Platelet Count 624 X10^3/uL (150-400); Red Blood Cell Count 4.13 X10^6/uL (4.0-5.2); Red Cell Distribution Width 14.7 % (11.6-14.8); White Blood Cell Count 10.5 X10^3/uL (4.5-11.0)
[2020-11-06 08:56] LABS: Alanine Aminotransferase 16 IU/L (<35); Albumin 4.3 g/dL (3.5-5.0); Alkaline Phosphatase 57 U/L (38-126); Aspartate Aminotransferase 28 IU/L (14-36); Bilirubin Total 0.6 mg/dL (0.2-1.3); Bilirubin Unconjugated 0.5 mg/dL (0.0-1.1); Blood Urea Nitrogen 15 mg/dL (7-17); Calcium 9.8 mg/dL (8.4-10.2); Carbon Dioxide 34 mmol/L (22-32); Chloride 104 mmol/L (98-107); Estimated Glomerular Filt Rate > 60.0 mL/min (>60); Globulin 4.5 g/dL (1.7-4.1); Glucose 68 mg/dL (80-110); HEMOLYSIS < 15 (0-50); Potassium 5.3 mmol/L (3.4-5.1); Sodium 139 mmol/L (137-145); Total Protein 8.8 g/dL (6.3-8.2)
== END ==
PROVIDERS: PCP Physician Assistant; Referring Provider Internal Medicine; Visit Provider Internal Medicine Hematology
DX: D69.3 Immune thrombocytopenic purpura (principal)
CPT/HCPCS: 36415; 80053; 80076; 85025

== ENCOUNTER → 2020-11-08 06:36 | Outpatient (CLI) | payer MEDICARE, OTHER, SELFPAY ==
[2020-04-24 11:11] VITALS: BMI 20.5
[2020-11-08 07:19] LABS: Add Manual Diff / Slide Review NO; Basophils Absolute Auto 100 /uL (0-100); Basophils Percent Auto 1.5 % (0-2); Eosinophils Absolute Auto 200 /uL (0-450); Eosinophils Percent Auto 2.2 % (2-4); Hematocrit 37.3 % (36-46); Hemoglobin 12.6 g/dL (12.0-16.0); Lymphocytes Absolute Auto 1900 /uL (1100-4500); Lymphocytes Percent Auto 19.5 % (25-40); Mean Corpuscular HGB Conc 33.9 % (30-36); Mean Corpuscular Hemoglobin 31.8 PG (26-34); Mean Corpuscular Volume 93.9 fL (80-100); Monocytes Absolute Auto 800 /uL (0-900); Monocytes Percent Auto 8.6 % (3-14); Neutrophils Absolute Auto 6600 /uL (1500-7000); Neutrophils Percent Auto 68.2 % (50-75); Platelet Count 521 X10^3/uL (150-400); Red Blood Cell Count 3.98 X10^6/uL (4.0-5.2); Red Cell Distribution Width 14.7 % (11.6-14.8); White Blood Cell Count 9.7 X10^3/uL (4.5-11.0)
== END ==
PROVIDERS: PCP Physician Assistant; Referring Provider Internal Medicine Hematology; Visit Provider Internal Medicine Hematology
DX: D69.3 Immune thrombocytopenic purpura (principal)
CPT/HCPCS: 36415; 85025

== ENCOUNTER → 2020-11-10 06:33 | Outpatient (CLI) | payer MEDICARE, OTHER, SELFPAY ==
[2020-04-24 11:11] VITALS: BMI 20.5
[2020-11-10 07:12] LABS: Add Manual Diff / Slide Review NO; Basophils Absolute Auto 100 /uL (0-100); Basophils Percent Auto 0.9 % (0-2); Eosinophils Absolute Auto 100 /uL (0-450); Eosinophils Percent Auto 1.2 % (2-4); Hematocrit 38.3 % (36-46); Lymphocytes Absolute Auto 2500 /uL (1100-4500); Lymphocytes Percent Auto 22.9 % (25-40); Mean Corpuscular HGB Conc 33.8 % (30-36); Mean Corpuscular Hemoglobin 32.1 PG (26-34); Mean Corpuscular Volume 94.8 fL (80-100); Monocytes Absolute Auto 1000 /uL (0-900); Monocytes Percent Auto 8.8 % (3-14); Neutrophils Absolute Auto 7200 /uL (1500-7000); Neutrophils Percent Auto 66.2 % (50-75); Platelet Count 357 X10^3/uL (150-400); Red Blood Cell Count 4.05 X10^6/uL (4.0-5.2); Red Cell Distribution Width 14.4 % (11.6-14.8); White Blood Cell Count 10.9 X10^3/uL (4.5-11.0)
== END ==
PROVIDERS: PCP Physician Assistant; Referring Provider Internal Medicine; Visit Provider Internal Medicine
DX: D69.3 Immune thrombocytopenic purpura (principal)
CPT/HCPCS: 36415; 85025

== ENCOUNTER → 2020-11-13 06:32 | Outpatient (CLI) | payer MEDICARE, OTHER, SELFPAY ==
[2020-04-24 11:11] VITALS: BMI 20.5
[2020-11-13 08:11] LABS: Add Manual Diff / Slide Review NO; Basophils Absolute Auto 200 /uL (0-100); Basophils Percent Auto 2.6 % (0-2); Eosinophils Absolute Auto 200 /uL (0-450); Eosinophils Percent Auto 1.8 % (2-4); Hematocrit 39.5 % (36-46); Hemoglobin 13.1 g/dL (12.0-16.0); Lymphocytes Absolute Auto 2400 /uL (1100-4500); Lymphocytes Percent Auto 25.4 % (25-40); Mean Corpuscular HGB Conc 33.1 % (30-36); Mean Corpuscular Hemoglobin 31.2 PG (26-34); Mean Corpuscular Volume 94.2 fL (80-100); Monocytes Absolute Auto 900 /uL (0-900); Monocytes Percent Auto 9.8 % (3-14); Neutrophils Absolute Auto 5700 /uL (1500-7000); Neutrophils Percent Auto 60.4 % (50-75); Platelet Count 88 X10^3/uL (150-400); Red Blood Cell Count 4.19 X10^6/uL (4.0-5.2); Red Cell Distribution Width 14.8 % (11.6-14.8); White Blood Cell Count 9.5 X10^3/uL (4.5-11.0)
[2020-11-13 08:17] LABS: Alanine Aminotransferase 14 IU/L (<35); Albumin 4.1 g/dL (3.5-5.0); Alkaline Phosphatase 58 U/L (38-126); Aspartate Aminotransferase 24 IU/L (14-36); Bilirubin Total 0.6 mg/dL (0.2-1.3); Bilirubin Unconjugated 0.6 mg/dL (0.0-1.1); Blood Urea Nitrogen 15 mg/dL (7-17); Calcium 9.7 mg/dL (8.4-10.2); Carbon Dioxide 34 mmol/L (22-32); Chloride 101 mmol/L (98-107); Estimated Glomerular Filt Rate 57.3 mL/min (>60); Globulin 4.3 g/dL (1.7-4.1); Glucose 82 mg/dL (80-110); HEMOLYSIS < 15 (0-50); Potassium 4.5 mmol/L (3.4-5.1); Sodium 139 mmol/L (137-145); Total Protein 8.4 g/dL (6.3-8.2)
[2020-11-13 17:46] LABS: Phosphorous 3.1 mg/dL (2.8-4.1)
== END ==
PROVIDERS: PCP Physician Assistant; Referring Provider Internal Medicine Hematology; Visit Provider Internal Medicine Hematology
DX: D69.3 Immune thrombocytopenic purpura (principal)
CPT/HCPCS: 36415; 80053; 80069; 80076; 85025

== ENCOUNTER → 2020-11-15 06:32 | Outpatient (CLI) | payer MEDICARE, OTHER, SELFPAY ==
[2020-04-24 11:11] VITALS: BMI 20.5
[2020-11-15 08:04] LABS: Add Manual Diff / Slide Review NO; Basophils Absolute Auto 200 /uL (0-100); Basophils Percent Auto 2.1 % (0-2); Eosinophils Absolute Auto 200 /uL (0-450); Eosinophils Percent Auto 2.2 % (2-4); Hematocrit 37.8 % (36-46); Hemoglobin 12.7 g/dL (12.0-16.0); Lymphocytes Absolute Auto 2700 /uL (1100-4500); Lymphocytes Percent Auto 30.3 % (25-40); Mean Corpuscular HGB Conc 33.5 % (30-36); Mean Corpuscular Hemoglobin 31.5 PG (26-34); Monocytes Absolute Auto 800 /uL (0-900); Monocytes Percent Auto 8.8 % (3-14); Neutrophils Absolute Auto 5000 /uL (1500-7000); Neutrophils Percent Auto 56.6 % (50-75); Red Blood Cell Count 4.03 X10^6/uL (4.0-5.2); Red Cell Distribution Width 14.8 % (11.6-14.8); White Blood Cell Count 8.8 X10^3/uL (4.5-11.0)
[2020-11-15 08:08] LABS: Platelet Count 13 X10^3/uL (150-400)
[2020-11-15 08:25] LABS: Platelet Estimate Decreased on smear
--- NOTE | 2020-11-15 14:39 | PC.NURSE ---
plt 13: pt called and left message of her plt count. Pt last seen August [address] Yanez. No orders placed for this week's plt count by this clinic. This RN called pt. pt states, Dr. Smith at [facility] is leaving so she has a new Locker Attendant at [place], Dr. Lao. Dr. Lao ordered the plt count and I did call his nurse. I have another lab tomorrow and will contact them with the results. I may need IVIG which [facility] can order. This RN clarified that pt is now seeing Dr. Lao and will be cared for by that office and [facility] for orders.
== END ==
PROVIDERS: PCP Physician Assistant; Referring Provider Internal Medicine; Visit Provider Internal Medicine
DX: D69.3 Immune thrombocytopenic purpura (principal)
CPT/HCPCS: 36415; 85025

== ENCOUNTER → 2020-11-16 06:32 | Outpatient (CLI) | payer MEDICARE, OTHER, SELFPAY ==
[2020-04-24 11:11] VITALS: BMI 20.5
[2020-11-16 07:21] LABS: Basophils Absolute Auto 100 /uL (0-100); Basophils Percent Auto 1.4 % (0-2); Eosinophils Absolute Auto 200 /uL (0-450); Eosinophils Percent Auto 2.1 % (2-4); Hematocrit 37.7 % (36-46); Hemoglobin 12.7 g/dL (12.0-16.0); Lymphocytes Absolute Auto 2600 /uL (1100-4500); Lymphocytes Percent Auto 25.3 % (25-40); Mean Corpuscular HGB Conc 33.8 % (30-36); Mean Corpuscular Hemoglobin 31.6 PG (26-34); Mean Corpuscular Volume 93.6 fL (80-100); Monocytes Absolute Auto 900 /uL (0-900); Monocytes Percent Auto 8.5 % (3-14); Neutrophils Absolute Auto 6500 /uL (1500-7000); Neutrophils Percent Auto 62.7 % (50-75); Red Blood Cell Count 4.03 X10^6/uL (4.0-5.2); Red Cell Distribution Width 14.2 % (11.6-14.8); White Blood Cell Count 10.4 X10^3/uL (4.5-11.0)
[2020-11-16 07:34] LABS: Add Manual Diff / Slide Review SLIDE REVIEW
[2020-11-16 08:32] LABS: Platelet Count 7 X10^3/uL (150-400)
[2020-11-16 08:33] LABS: Acanthocytes 1+; Platelet Estimate Decreased on smear
== END ==
PROVIDERS: PCP Physician Assistant; Referring Provider Internal Medicine Hematology; Visit Provider Internal Medicine Hematology
DX: D69.3 Immune thrombocytopenic purpura (principal)
CPT/HCPCS: 36415; 85025

== ENCOUNTER → 2020-11-20 06:32 | Outpatient (CLI) | payer MEDICARE, OTHER, SELFPAY ==
[2020-04-24 11:11] VITALS: BMI 20.5
[2020-11-20 08:07] LABS: Add Manual Diff / Slide Review NO; Basophils Absolute Auto 0 /uL (0-100); Basophils Percent Auto 0.3 % (0-2); Eosinophils Absolute Auto 200 /uL (0-450); Eosinophils Percent Auto 1.5 % (2-4); Hematocrit 37.7 % (36-46); Hemoglobin 12.6 g/dL (12.0-16.0); Lymphocytes Absolute Auto 3400 /uL (1100-4500); Lymphocytes Percent Auto 30.4 % (25-40); Mean Corpuscular HGB Conc 33.3 % (30-36); Mean Corpuscular Hemoglobin 31.3 PG (26-34); Mean Corpuscular Volume 93.9 fL (80-100); Monocytes Absolute Auto 1200 /uL (0-900); Monocytes Percent Auto 10.3 % (3-14); Neutrophils Absolute Auto 6400 /uL (1500-7000); Neutrophils Percent Auto 57.5 % (50-75); Platelet Count 155 X10^3/uL (150-400); Red Blood Cell Count 4.02 X10^6/uL (4.0-5.2); Red Cell Distribution Width 14.5 % (11.6-14.8); White Blood Cell Count 11.2 X10^3/uL (4.5-11.0)
== END ==
PROVIDERS: PCP Physician Assistant; Referring Provider Internal Medicine; Visit Provider Internal Medicine
DX: D69.3 Immune thrombocytopenic purpura (principal)
CPT/HCPCS: 36415; 85025

== ENCOUNTER → 2020-11-24 06:33 | Outpatient (CLI) | payer MEDICARE, OTHER, SELFPAY ==
[2020-04-24 11:11] VITALS: BMI 20.5
[2020-11-24 08:18] LABS: Add Manual Diff / Slide Review NO; Basophils Absolute Auto 100 /uL (0-100); Basophils Percent Auto 0.7 % (0-2); Eosinophils Absolute Auto 100 /uL (0-450); Eosinophils Percent Auto 0.7 % (2-4); Hematocrit 39.7 % (36-46); Lymphocytes Absolute Auto 2600 /uL (1100-4500); Mean Corpuscular HGB Conc 32.8 % (30-36); Mean Corpuscular Hemoglobin 30.6 PG (26-34); Mean Corpuscular Volume 93.3 fL (80-100); Monocytes Absolute Auto 900 /uL (0-900); Monocytes Percent Auto 8.9 % (3-14); Neutrophils Absolute Auto 6700 /uL (1500-7000); Neutrophils Percent Auto 64.7 % (50-75); Platelet Count 446 X10^3/uL (150-400); Red Blood Cell Count 4.26 X10^6/uL (4.0-5.2); Red Cell Distribution Width 14.7 % (11.6-14.8); White Blood Cell Count 10.4 X10^3/uL (4.5-11.0)
== END ==
PROVIDERS: PCP Physician Assistant; Referring Provider Internal Medicine; Visit Provider Internal Medicine
DX: D69.3 Immune thrombocytopenic purpura (principal)
CPT/HCPCS: 36415; 85025

== ENCOUNTER → 2020-12-01 06:30 | Outpatient (CLI) | payer MEDICARE, OTHER, SELFPAY ==
[2020-04-24 11:11] VITALS: BMI 20.5
[2020-12-01 07:40] LABS: Add Manual Diff / Slide Review NO; Basophils Absolute Auto 100 /uL (0-100); Basophils Percent Auto 1.2 % (0-2); Eosinophils Absolute Auto 200 /uL (0-450); Eosinophils Percent Auto 1.8 % (2-4); Hematocrit 37.8 % (36-46); Hemoglobin 12.8 g/dL (12.0-16.0); Lymphocytes Absolute Auto 2800 /uL (1100-4500); Lymphocytes Percent Auto 28.2 % (25-40); Mean Corpuscular HGB Conc 33.8 % (30-36); Mean Corpuscular Hemoglobin 31.5 PG (26-34); Mean Corpuscular Volume 93.1 fL (80-100); Monocytes Absolute Auto 800 /uL (0-900); Monocytes Percent Auto 8.2 % (3-14); Neutrophils Absolute Auto 5900 /uL (1500-7000); Neutrophils Percent Auto 60.6 % (50-75); Platelet Count 431 X10^3/uL (150-400); Red Blood Cell Count 4.06 X10^6/uL (4.0-5.2); Red Cell Distribution Width 14.7 % (11.6-14.8); White Blood Cell Count 9.8 X10^3/uL (4.5-11.0)
== END ==
PROVIDERS: PCP Physician Assistant; Referring Provider Internal Medicine; Visit Provider Internal Medicine
DX: D69.3 Immune thrombocytopenic purpura (principal)
CPT/HCPCS: 36415; 85025

== ENCOUNTER → 2020-12-04 06:31 | Outpatient (CLI) | payer MEDICARE, OTHER, SELFPAY ==
[2020-04-24 11:11] VITALS: BMI 20.5
[2020-12-04 08:46] LABS: Add Manual Diff / Slide Review NO; Basophils Absolute Auto 200 /uL (0-100); Basophils Percent Auto 2.3 % (0-2); Eosinophils Absolute Auto 100 /uL (0-450); Eosinophils Percent Auto 1.4 % (2-4); Hematocrit 35.8 % (36-46); Hemoglobin 12.2 g/dL (12.0-16.0); Lymphocytes Absolute Auto 2700 /uL (1100-4500); Lymphocytes Percent Auto 32.6 % (25-40); Mean Corpuscular HGB Conc 34.1 % (30-36); Mean Corpuscular Hemoglobin 31.4 PG (26-34); Mean Corpuscular Volume 92.1 fL (80-100); Monocytes Absolute Auto 800 /uL (0-900); Monocytes Percent Auto 9.6 % (3-14); Neutrophils Absolute Auto 4500 /uL (1500-7000); Neutrophils Percent Auto 54.1 % (50-75); Platelet Count 305 X10^3/uL (150-400); Red Blood Cell Count 3.89 X10^6/uL (4.0-5.2); Red Cell Distribution Width 14.8 % (11.6-14.8); White Blood Cell Count 8.3 X10^3/uL (4.5-11.0)
== END ==
PROVIDERS: PCP Physician Assistant; Referring Provider Internal Medicine; Visit Provider Internal Medicine
DX: D69.3 Immune thrombocytopenic purpura (principal)
CPT/HCPCS: 36415; 85025

== ENCOUNTER → 2020-12-05 08:51 | Outpatient (CLI) | payer MEDICARE, OTHER, SELFPAY ==
[2020-04-24 11:11] VITALS: BMI 20.5
== END ==
PROVIDERS: PCP Physician Assistant; Referring Provider Physician Assistant; Visit Provider Family Medicine
DX: I87.2 Venous insufficiency (chronic) (peripheral) (principal); L97.212 Non-pressure chronic ulcer of right calf with fat layer exposed; R60.0 Localized edema; D69.3 Immune thrombocytopenic purpura; I73.81 Erythromelalgia; D84.821 Immunodeficiency due to drugs; Z79.52 Long term (current) use of systemic steroids
CPT/HCPCS: 99213; 99214

== ENCOUNTER → 2020-12-06 06:33 | Outpatient (CLI) | payer MEDICARE, OTHER, SELFPAY ==
[2020-04-24 11:11] VITALS: BMI 20.5
[2020-12-06 09:09] LABS: Add Manual Diff / Slide Review NO; Basophils Absolute Auto 200 /uL (0-100); Basophils Percent Auto 2.3 % (0-2); Eosinophils Absolute Auto 100 /uL (0-450); Eosinophils Percent Auto 1.6 % (2-4); Hematocrit 38.4 % (36-46); Lymphocytes Absolute Auto 2800 /uL (1100-4500); Lymphocytes Percent Auto 31.8 % (25-40); Mean Corpuscular HGB Conc 33.8 % (30-36); Mean Corpuscular Hemoglobin 31.4 PG (26-34); Monocytes Absolute Auto 800 /uL (0-900); Monocytes Percent Auto 9.3 % (3-14); Neutrophils Absolute Auto 4800 /uL (1500-7000); Platelet Count 242 X10^3/uL (150-400); Red Blood Cell Count 4.13 X10^6/uL (4.0-5.2); White Blood Cell Count 8.8 X10^3/uL (4.5-11.0)
== END ==
PROVIDERS: PCP Physician Assistant; Referring Provider Internal Medicine; Visit Provider Internal Medicine
DX: D69.3 Immune thrombocytopenic purpura (principal)
CPT/HCPCS: 36415; 85025

== ENCOUNTER → 2020-12-08 06:35 | Outpatient (CLI) | payer MEDICARE, OTHER, SELFPAY ==
[2020-04-24 11:11] VITALS: BMI 20.5
[2020-12-08 07:14] LABS: Add Manual Diff / Slide Review NO; Basophils Absolute Auto 0 /uL (0-100); Basophils Percent Auto 0.5 % (0-2); Eosinophils Absolute Auto 200 /uL (0-450); Hematocrit 38.8 % (36-46); Lymphocytes Absolute Auto 3000 /uL (1100-4500); Lymphocytes Percent Auto 34.2 % (25-40); Mean Corpuscular HGB Conc 33.4 % (30-36); Mean Corpuscular Hemoglobin 30.9 PG (26-34); Mean Corpuscular Volume 92.4 fL (80-100); Monocytes Absolute Auto 800 /uL (0-900); Monocytes Percent Auto 9.6 % (3-14); Neutrophils Absolute Auto 4800 /uL (1500-7000); Neutrophils Percent Auto 53.7 % (50-75); Platelet Count 195 X10^3/uL (150-400); Red Cell Distribution Width 14.9 % (11.6-14.8); White Blood Cell Count 8.9 X10^3/uL (4.5-11.0)
== END ==
PROVIDERS: PCP Physician Assistant; Referring Provider Internal Medicine; Visit Provider Internal Medicine
DX: D69.3 Immune thrombocytopenic purpura (principal)
CPT/HCPCS: 36415; 85025

== ENCOUNTER → 2020-12-11 06:33 | Outpatient (CLI) | payer MEDICARE, OTHER, SELFPAY ==
[2020-04-24 11:11] VITALS: BMI 20.5
[2020-12-11 08:03] LABS: Hematocrit 38.6 % (36-46); Mean Corpuscular HGB Conc 33.6 % (30-36); Mean Corpuscular Hemoglobin 31.2 PG (26-34); Mean Corpuscular Volume 92.9 fL (80-100); Platelet Count 94 X10^3/uL (150-400); Red Blood Cell Count 4.16 X10^6/uL (4.0-5.2); White Blood Cell Count 9.1 X10^3/uL (4.5-11.0)
[2020-12-11 08:08] LABS: Add Manual Diff / Slide Review YES
[2020-12-11 08:30] LABS: Neutrophils Absolute Manual 5642 /uL (3000-5900); Total Cells Counted 100
[2020-12-11 08:33] LABS: Platelet Estimate Decr
[2020-12-11 08:36] LABS: Acanthocytes 1+
[2020-12-11 08:37] LABS: RBC Morphology See
== END ==
PROVIDERS: PCP Physician Assistant; Referring Provider Internal Medicine; Visit Provider Internal Medicine
DX: D69.3 Immune thrombocytopenic purpura (principal)
CPT/HCPCS: 36415; 85007; 85025

== ENCOUNTER → 2020-12-13 06:33 | Outpatient (CLI) | payer MEDICARE, OTHER, SELFPAY ==
[2020-04-24 11:11] VITALS: BMI 20.5
[2020-12-13 07:14] LABS: Add Manual Diff / Slide Review NO; Basophils Absolute Auto 100 /uL (0-100); Basophils Percent Auto 1.4 % (0-2); Eosinophils Absolute Auto 200 /uL (0-450); Eosinophils Percent Auto 2.1 % (2-4); Hematocrit 38.3 % (36-46); Hemoglobin 12.8 g/dL (12.0-16.0); Lymphocytes Absolute Auto 2900 /uL (1100-4500); Lymphocytes Percent Auto 32.1 % (25-40); Mean Corpuscular HGB Conc 33.5 % (30-36); Mean Corpuscular Hemoglobin 30.8 PG (26-34); Mean Corpuscular Volume 92.1 fL (80-100); Monocytes Absolute Auto 800 /uL (0-900); Monocytes Percent Auto 8.4 % (3-14); Neutrophils Absolute Auto 5000 /uL (1500-7000); Platelet Count 68 X10^3/uL (150-400); Red Blood Cell Count 4.16 X10^6/uL (4.0-5.2); Red Cell Distribution Width 14.8 % (11.6-14.8); White Blood Cell Count 8.9 X10^3/uL (4.5-11.0)
== END ==
PROVIDERS: PCP Physician Assistant; Referring Provider Internal Medicine; Visit Provider Internal Medicine
DX: D69.3 Immune thrombocytopenic purpura (principal)
CPT/HCPCS: 36415; 85025

== ENCOUNTER → 2020-12-15 06:32 | Outpatient (CLI) | payer MEDICARE, OTHER, SELFPAY ==
[2020-04-24 11:11] VITALS: BMI 20.5
[2020-12-15 07:16] LABS: Add Manual Diff / Slide Review NO; Basophils Absolute Auto 100 /uL (0-100); Basophils Percent Auto 1.3 % (0-2); Eosinophils Absolute Auto 200 /uL (0-450); Eosinophils Percent Auto 1.9 % (2-4); Hematocrit 38.1 % (36-46); Hemoglobin 12.9 g/dL (12.0-16.0); Lymphocytes Absolute Auto 3100 /uL (1100-4500); Lymphocytes Percent Auto 30.2 % (25-40); Mean Corpuscular HGB Conc 33.8 % (30-36); Mean Corpuscular Volume 91.6 fL (80-100); Monocytes Absolute Auto 900 /uL (0-900); Monocytes Percent Auto 8.4 % (3-14); Neutrophils Absolute Auto 6000 /uL (1500-7000); Neutrophils Percent Auto 58.2 % (50-75); Platelet Count 64 X10^3/uL (150-400); Red Blood Cell Count 4.16 X10^6/uL (4.0-5.2); Red Cell Distribution Width 14.7 % (11.6-14.8); White Blood Cell Count 10.3 X10^3/uL (4.5-11.0)
== END ==
PROVIDERS: PCP Physician Assistant; Referring Provider Internal Medicine; Visit Provider Internal Medicine
DX: D69.3 Immune thrombocytopenic purpura (principal)
CPT/HCPCS: 36415; 85025

== ENCOUNTER → 2020-12-19 06:30 | Outpatient (CLI) | payer MEDICARE, OTHER, SELFPAY ==
[2020-04-24 11:11] VITALS: BMI 20.5
[2020-12-19 07:49] LABS: Add Manual Diff / Slide Review NO; Basophils Absolute Auto 200 /uL (0-100); Basophils Percent Auto 1.5 % (0-2); Eosinophils Absolute Auto 200 /uL (0-450); Hematocrit 38.6 % (36-46); Hemoglobin 12.8 g/dL (12.0-16.0); Lymphocytes Absolute Auto 3200 /uL (1100-4500); Lymphocytes Percent Auto 30.6 % (25-40); Mean Corpuscular HGB Conc 33.1 % (30-36); Mean Corpuscular Hemoglobin 30.8 PG (26-34); Monocytes Absolute Auto 900 /uL (0-900); Monocytes Percent Auto 8.9 % (3-14); Neutrophils Absolute Auto 6000 /uL (1500-7000); Platelet Count 123 X10^3/uL (150-400); Red Blood Cell Count 4.14 X10^6/uL (4.0-5.2); Red Cell Distribution Width 14.8 % (11.6-14.8); White Blood Cell Count 10.5 X10^3/uL (4.5-11.0)
== END ==
PROVIDERS: PCP Physician Assistant; Referring Provider Internal Medicine; Visit Provider Internal Medicine
DX: D69.3 Immune thrombocytopenic purpura (principal)
CPT/HCPCS: 36415; 85025

== ENCOUNTER → 2020-12-26 11:25 | Outpatient (CLI) | payer MEDICARE, OTHER, SELFPAY ==
[2020-04-24 11:11] VITALS: BMI 20.5
[2020-12-26 11:55] LABS: Add Manual Diff / Slide Review NO; Basophils Absolute Auto 100 /uL (0-100); Basophils Percent Auto 1.2 % (0-2); Eosinophils Absolute Auto 200 /uL (0-450); Eosinophils Percent Auto 1.6 % (2-4); Hemoglobin 13.1 g/dL (12.0-16.0); Lymphocytes Absolute Auto 3100 /uL (1100-4500); Lymphocytes Percent Auto 27.5 % (25-40); Mean Corpuscular HGB Conc 33.7 % (30-36); Mean Corpuscular Hemoglobin 30.8 PG (26-34); Mean Corpuscular Volume 91.2 fL (80-100); Monocytes Absolute Auto 900 /uL (0-900); Monocytes Percent Auto 8.2 % (3-14); Neutrophils Absolute Auto 7000 /uL (1500-7000); Neutrophils Percent Auto 61.5 % (50-75); Platelet Count 269 X10^3/uL (150-400); Red Blood Cell Count 4.27 X10^6/uL (4.0-5.2); Red Cell Distribution Width 14.9 % (11.6-14.8); White Blood Cell Count 11.4 X10^3/uL (4.5-11.0)
== END ==
PROVIDERS: PCP Physician Assistant; Referring Provider Internal Medicine; Visit Provider Internal Medicine
DX: D69.3 Immune thrombocytopenic purpura (principal)
CPT/HCPCS: 36415; 85025

== ENCOUNTER → 2020-12-29 06:30 | Outpatient (CLI) | payer MEDICARE, OTHER, SELFPAY ==
[2020-04-24 11:11] VITALS: BMI 20.5
[2020-12-29 08:20] LABS: Add Manual Diff / Slide Review NO; Basophils Absolute Auto 200 /uL (0-100); Eosinophils Absolute Auto 300 /uL (0-450); Eosinophils Percent Auto 2.7 % (2-4); Hematocrit 38.2 % (36-46); Hemoglobin 12.6 g/dL (12.0-16.0); Lymphocytes Absolute Auto 3400 /uL (1100-4500); Lymphocytes Percent Auto 31.3 % (25-40); Mean Corpuscular HGB Conc 33.1 % (30-36); Mean Corpuscular Hemoglobin 30.3 PG (26-34); Mean Corpuscular Volume 91.6 fL (80-100); Monocytes Absolute Auto 900 /uL (0-900); Neutrophils Absolute Auto 6100 /uL (1500-7000); Platelet Count 325 X10^3/uL (150-400); Red Blood Cell Count 4.17 X10^6/uL (4.0-5.2); Red Cell Distribution Width 14.9 % (11.6-14.8); White Blood Cell Count 10.8 X10^3/uL (4.5-11.0)
== END ==
PROVIDERS: PCP Physician Assistant; Referring Provider Internal Medicine; Visit Provider Internal Medicine
DX: D69.3 Immune thrombocytopenic purpura (principal)
CPT/HCPCS: 36415; 85025

== ENCOUNTER → 2021-01-02 09:06 | Outpatient (CLI) | payer MEDICARE, OTHER, SELFPAY ==
[2020-04-24 11:11] VITALS: BMI 20.5
[2021-01-02 10:44] LABS: Add Manual Diff / Slide Review NO; Basophils Absolute Auto 200 /uL (0-100); Basophils Percent Auto 1.3 % (0-2); Eosinophils Absolute Auto 200 /uL (0-450); Eosinophils Percent Auto 1.9 % (2-4); Hematocrit 38.7 % (36-46); Hemoglobin 12.8 g/dL (12.0-16.0); Lymphocytes Absolute Auto 3500 /uL (1100-4500); Lymphocytes Percent Auto 27.8 % (25-40); Mean Corpuscular HGB Conc 33.1 % (30-36); Mean Corpuscular Hemoglobin 30.2 PG (26-34); Mean Corpuscular Volume 91.4 fL (80-100); Monocytes Absolute Auto 1100 /uL (0-900); Monocytes Percent Auto 8.7 % (3-14); Neutrophils Absolute Auto 7600 /uL (1500-7000); Neutrophils Percent Auto 60.3 % (50-75); Platelet Count 225 X10^3/uL (150-400); Red Blood Cell Count 4.23 X10^6/uL (4.0-5.2); White Blood Cell Count 12.6 X10^3/uL (4.5-11.0)
== END ==
PROVIDERS: PCP Physician Assistant; Referring Provider Internal Medicine; Visit Provider Internal Medicine
DX: D69.3 Immune thrombocytopenic purpura (principal)
CPT/HCPCS: 36415; 85025

== ENCOUNTER → 2021-01-05 09:52 | Outpatient (CLI) | payer MEDICARE, OTHER, SELFPAY ==
[2020-04-24 11:11] VITALS: BMI 20.5
[2021-01-05 10:08] LABS: Add Manual Diff / Slide Review NO; Basophils Absolute Auto 100 /uL (0-100); Basophils Percent Auto 0.6 % (0-2); Eosinophils Absolute Auto 300 /uL (0-450); Eosinophils Percent Auto 3.1 % (2-4); Hematocrit 38.6 % (36-46); Hemoglobin 12.8 g/dL (12.0-16.0); Lymphocytes Absolute Auto 2900 /uL (1100-4500); Lymphocytes Percent Auto 26.9 % (25-40); Mean Corpuscular HGB Conc 33.1 % (30-36); Mean Corpuscular Hemoglobin 30.1 PG (26-34); Monocytes Absolute Auto 1200 /uL (0-900); Monocytes Percent Auto 10.6 % (3-14); Neutrophils Absolute Auto 6400 /uL (1500-7000); Neutrophils Percent Auto 58.8 % (50-75); Platelet Count 125 X10^3/uL (150-400); Red Blood Cell Count 4.24 X10^6/uL (4.0-5.2); Red Cell Distribution Width 14.7 % (11.6-14.8); White Blood Cell Count 10.9 X10^3/uL (4.5-11.0)
== END ==
PROVIDERS: PCP Physician Assistant; Referring Provider Internal Medicine; Visit Provider Internal Medicine
DX: D69.3 Immune thrombocytopenic purpura (principal)
CPT/HCPCS: 36415; 85025

== ENCOUNTER → 2021-02-08 14:27 | Outpatient (CLI) | payer MEDICARE, OTHER, SELFPAY ==
[2020-04-24 11:11] VITALS: BMI 20.5
== END ==
PROVIDERS: PCP Physician Assistant; Referring Provider Physician Assistant; Visit Provider Nurse Practitioner Family
DX: L97.822 Non-pressure chronic ulcer of other part of left lower leg with fat layer exposed (principal); Z79.52 Long term (current) use of systemic steroids; C44.729 Squamous cell carcinoma of skin of left lower limb, including hip; D69.3 Immune thrombocytopenic purpura; I87.2 Venous insufficiency (chronic) (peripheral)
CPT/HCPCS: 11042; 87070; 87075; 87077; 87186; 87205; 99213; 99214

== ENCOUNTER → 2021-02-08 19:06 | Outpatient (ROUT) | payer MEDICARE, OTHER, SELFPAY ==
[2020-04-24 11:11] VITALS: BMI 20.5
== END ==
PROVIDERS: PCP Physician Assistant; Visit Provider Nurse Practitioner Family
DX: L08.9 Local infection of the skin and subcutaneous tissue, unspecified (principal)
CPT/HCPCS: 87070; 87075; 87205

== ENCOUNTER → 2021-02-15 12:05 | Outpatient (CLI) | payer MEDICARE, OTHER, SELFPAY ==
[2020-04-24 11:11] VITALS: BMI 20.5
== END ==
PROVIDERS: PCP Physician Assistant; Referring Provider Physician Assistant; Visit Provider Family Medicine
DX: I87.2 Venous insufficiency (chronic) (peripheral) (principal); L97.822 Non-pressure chronic ulcer of other part of left lower leg with fat layer exposed; B95.7 Other staphylococcus as the cause of diseases classified elsewhere; T81.89XA Other complications of procedures, not elsewhere classified, initial encounter; S81.802A Unspecified open wound, left lower leg, initial encounter; C44.729 Squamous cell carcinoma of skin of left lower limb, including hip; R60.0 Localized edema; D69.3 Immune thrombocytopenic purpura; D84.821 Immunodeficiency due to drugs; I73.81 Erythromelalgia; Z79.52 Long term (current) use of systemic steroids
CPT/HCPCS: 11042; 99212; 99213

== ENCOUNTER → 2021-02-23 13:58 | Outpatient (CLI) | payer MEDICARE, OTHER, SELFPAY ==
[2020-04-24 11:11] VITALS: BMI 20.5
== END ==
PROVIDERS: PCP Physician Assistant; Referring Provider Physician Assistant; Visit Provider Nurse Practitioner Family
DX: I87.2 Venous insufficiency (chronic) (peripheral) (principal); L97.822 Non-pressure chronic ulcer of other part of left lower leg with fat layer exposed; Z79.52 Long term (current) use of systemic steroids; D69.3 Immune thrombocytopenic purpura
CPT/HCPCS: 11042

== ENCOUNTER → 2021-03-02 11:16 | Outpatient (CLI) | payer MEDICARE, OTHER, SELFPAY ==
[2020-04-24 11:11] VITALS: BMI 20.5
== END ==
PROVIDERS: PCP Physician Assistant; Referring Provider Physician Assistant; Visit Provider Nurse Practitioner Family
DX: I87.2 Venous insufficiency (chronic) (peripheral) (principal); L97.822 Non-pressure chronic ulcer of other part of left lower leg with fat layer exposed; L08.9 Local infection of the skin and subcutaneous tissue, unspecified; D69.3 Immune thrombocytopenic purpura; Z79.52 Long term (current) use of systemic steroids
CPT/HCPCS: 11042; 97597; 99212

== ENCOUNTER → 2021-03-09 14:44 | Outpatient (CLI) | payer MEDICARE, OTHER, SELFPAY ==
[2020-04-24 11:11] VITALS: BMI 20.5
== END ==
PROVIDERS: PCP Physician Assistant; Referring Provider Physician Assistant; Visit Provider Nurse Practitioner Family
DX: I87.2 Venous insufficiency (chronic) (peripheral) (principal); L97.822 Non-pressure chronic ulcer of other part of left lower leg with fat layer exposed; R60.0 Localized edema; D69.3 Immune thrombocytopenic purpura; I73.81 Erythromelalgia; Z79.52 Long term (current) use of systemic steroids
CPT/HCPCS: 11042; 15271; 99213; Q4137

== ENCOUNTER → 2021-03-16 10:57 | Outpatient (CLI) | payer MEDICARE, OTHER, SELFPAY ==
[2020-04-24 11:11] VITALS: BMI 20.5
== END ==
PROVIDERS: PCP Physician Assistant; Referring Provider Physician Assistant; Visit Provider Nurse Practitioner Family
DX: I87.2 Venous insufficiency (chronic) (peripheral) (principal); L97.822 Non-pressure chronic ulcer of other part of left lower leg with fat layer exposed; R60.0 Localized edema; D69.3 Immune thrombocytopenic purpura; I73.81 Erythromelalgia; Z79.52 Long term (current) use of systemic steroids
CPT/HCPCS: 15271; 97597; Q4137

== ENCOUNTER → 2021-03-23 13:24 | Outpatient (CLI) | payer MEDICARE, OTHER, SELFPAY ==
[2020-04-24 11:11] VITALS: BMI 20.5
== END ==
PROVIDERS: PCP Physician Assistant; Referring Provider Physician Assistant; Visit Provider Nurse Practitioner Family
DX: I87.2 Venous insufficiency (chronic) (peripheral) (principal); L97.822 Non-pressure chronic ulcer of other part of left lower leg with fat layer exposed; R60.0 Localized edema; I73.81 Erythromelalgia; D69.3 Immune thrombocytopenic purpura; D69.6 Thrombocytopenia, unspecified; Z79.52 Long term (current) use of systemic steroids
CPT/HCPCS: 15271; 36415; 80053; 85025; 97597; Q4137

== ENCOUNTER → 2021-03-30 08:36 | Outpatient (CLI) | payer MEDICARE, OTHER, SELFPAY ==
[2020-04-24 11:11] VITALS: BMI 20.5
== END ==
PROVIDERS: PCP Physician Assistant; Referring Provider Physician Assistant; Visit Provider Nurse Practitioner Family
DX: I87.2 Venous insufficiency (chronic) (peripheral) (principal); L97.822 Non-pressure chronic ulcer of other part of left lower leg with fat layer exposed; R60.0 Localized edema; D69.3 Immune thrombocytopenic purpura; I73.81 Erythromelalgia; Z79.52 Long term (current) use of systemic steroids
CPT/HCPCS: 15271; Q4137

== ENCOUNTER → 2021-04-06 09:23 | Outpatient (CLI) | payer MEDICARE, OTHER, SELFPAY ==
[2020-04-24 11:11] VITALS: BMI 20.5
== END ==
PROVIDERS: PCP Physician Assistant; Referring Provider Physician Assistant; Visit Provider Nurse Practitioner Family
DX: I87.2 Venous insufficiency (chronic) (peripheral) (principal); L97.822 Non-pressure chronic ulcer of other part of left lower leg with fat layer exposed; R60.0 Localized edema; D69.3 Immune thrombocytopenic purpura; I73.81 Erythromelalgia; Z79.52 Long term (current) use of systemic steroids
CPT/HCPCS: 15271; Q4137

== ENCOUNTER → 2021-04-07 | Outpatient (CLI) | payer MEDICARE, OTHER, SELFPAY ==
[2020-04-24 11:11] VITALS: BMI 20.5
[2021-04-07 09:53] LABS: Add Manual Diff / Slide Review NO; Basophils Absolute Auto 100 /uL (0-100); Basophils Percent Auto 0.5 % (0-2); Eosinophils Absolute Auto 100 /uL (0-450); Eosinophils Percent Auto 0.5 % (2-4); Hematocrit 35.9 % (36-46); Hemoglobin 11.8 g/dL (12.0-16.0); Lymphocytes Absolute Auto 1600 /uL (1100-4500); Lymphocytes Percent Auto 8.9 % (25-40); Mean Corpuscular HGB Conc 32.8 % (30-36); Mean Corpuscular Volume 88.5 fL (80-100); Monocytes Absolute Auto 1200 /uL (0-900); Monocytes Percent Auto 6.5 % (3-14); Neutrophils Absolute Auto 15300 /uL (1500-7000); Neutrophils Percent Auto 83.6 % (50-75); Red Blood Cell Count 4.06 X10^6/uL (4.0-5.2); Red Cell Distribution Width 15.3 % (11.6-14.8); White Blood Cell Count 18.3 X10^3/uL (4.5-11.0)
[2021-04-07 10:07] LABS: Platelet Count 21 X10^3/uL (150-400)
[2021-04-07 10:32] LABS: Alanine Aminotransferase 15 IU/L (<35); Albumin 4.6 g/dL (3.5-5.0); Albumin Globulin Ratio 1.5 (1.0-2.8); Alkaline Phosphatase 51 U/L (38-126); Aspartate Aminotransferase 23 IU/L (14-36); BUN Creatinine Ratio 20.2 (6-22); Blood Urea Nitrogen 20 mg/dL (7-17); Calcium 9.8 mg/dL (8.4-10.2); Carbon Dioxide 28 mmol/L (22-32); Chloride 101 mmol/L (98-107); Globulin 3.1 g/dL (1.7-4.1); Glucose 94 mg/dL (80-110); HEMOLYSIS < 15 (0-50); Potassium 5.1 mmol/L (3.4-5.1); Sodium 136 mmol/L (137-145); Total Protein 7.7 g/dL (6.3-8.2)
[2021-04-07 12:36] LABS: Anisocytosis 1+
== END ==
LOC: RAD 09:22
PROVIDERS: PCP Physician Assistant; Referring Provider Internal Medicine Hematology & Oncology; Visit Provider Internal Medicine Hematology & Oncology
DX: D69.3 Immune thrombocytopenic purpura (principal)
CPT/HCPCS: 36415; 80053; 85025

== ENCOUNTER → 2021-04-13 09:46 | Outpatient (CLI) | payer MEDICARE, OTHER, SELFPAY ==
[2020-04-24 11:11] VITALS: BMI 20.5
== END ==
PROVIDERS: PCP Physician Assistant; Referring Provider Physician Assistant; Visit Provider Nurse Practitioner Family
DX: D69.3 Immune thrombocytopenic purpura (principal); D69.6 Thrombocytopenia, unspecified; Z86.2 Personal history of diseases of the blood and blood-forming organs and certain disorders involving the immune mechanism; I87.2 Venous insufficiency (chronic) (peripheral); L97.822 Non-pressure chronic ulcer of other part of left lower leg with fat layer exposed; R60.0 Localized edema; I73.81 Erythromelalgia; Z79.52 Long term (current) use of systemic steroids
CPT/HCPCS: 15271; 36415; 85025; Q4137

== ENCOUNTER → 2021-04-20 11:52 | Outpatient (CLI) | payer MEDICARE, OTHER, SELFPAY ==
[2020-04-24 11:11] VITALS: BMI 20.5
== END ==
PROVIDERS: PCP Physician Assistant; Referring Provider Physician Assistant; Visit Provider Nurse Practitioner Family
DX: Z09 Encounter for follow-up examination after completed treatment for conditions other than malignant neoplasm (principal); I87.2 Venous insufficiency (chronic) (peripheral); R60.0 Localized edema; D69.3 Immune thrombocytopenic purpura; I73.81 Erythromelalgia; Z79.52 Long term (current) use of systemic steroids; Z87.2 Personal history of diseases of the skin and subcutaneous tissue
CPT/HCPCS: 99212; 99213

== ENCOUNTER → 2021-04-23 07:29 | Outpatient (CLI) | payer MEDICARE, OTHER, SELFPAY ==
[2020-04-24 11:11] VITALS: BMI 20.5
[2021-04-23 09:50] LABS: Cholesterol 190 mg/dL (140-199); HDL Cholesterol 97 mg/dL (40-60); LDL Cholesterol Calculated 79 mg/dL (<100); Triglycerides 71 mg/dL (35-150)
== END ==
PROVIDERS: PCP Physician Assistant; Referring Provider Physician Assistant; Visit Provider Physician Assistant
DX: E78.2 Mixed hyperlipidemia (principal)
CPT/HCPCS: 36415; 80061

== ENCOUNTER 2021-05-18 09:45 | Outpatient (RCR) | payer MEDICARE, OTHER, SELFPAY ==
[2020-04-24 11:11] VITALS: BMI 20.5
--- NOTE | 2021-05-07 10:15 | PT.OIE ---
Current Diagnoses Cystocele, midline (05/07/21) Fecal smearing (05/07/21) Unspecified urinary incontinence (05/07/21) Past Medical History (Last Reviewed 08/19/20 @ 00:44 by Nehemiah Medina DO) Anxiety Atrial flutter Chronic steroid use History of ITP Hypertension Microscopic hematuria Osteoporosis Scoliosis Past Surgical History (Last Reviewed 07/14/20 @ 17:16 by Rafia Caceres MD) History of splenectomy History of tonsillectomy Status post hysterectomy Visit Care Team Role Provider Type Henny Dinh PA-C Family Provider Non-Staff Primary Care Provider Specialty: Internal Medicine Address: [address] [place] [address], [facility] Email: [email or web address] Rafia Caceres MD Attending Provider Physician Referring Provider Specialty: PATTERN CUTTER Address: [address] [place] [address], [facility] Email: Physical Therapy Initial Evaluation PT-OP-A Visit Information Start: 04/26/21 15:56 Freq: Status: Active Protocol: Document 05/07/21 09:56 AMB (Rec: 05/07/21 10:51 AMB [id number]) Out-Patient Physical Therapy Visit Information Visit Information Visit Type Initial Evaluation Visit Start Time 09:45 Visit Stop Time 10:30 Total Visit Minutes 45 Visit Number 1 PT-OP-B Current Condition Start: 04/26/21 15:56 Freq: Status: Active Protocol: Document 05/07/21 09:56 AMB (Rec: 05/07/21 10:51 AMB [id number]) Current Condition History of Current Condition Onset Date 1 year Current Complaints Urge/ stress urinary incontinence, fecal incontinence History of Current Condition Pt notes urinary urgency and fecal incontinence of mucus/ fecal smearing. Goes to the bathroom bowel movements up to 3x/day. Can be surprised by the fecal incontinence doesn't necessarily feel it. Does take miralax due to chronic constipation. Nocturia 2x. Urgency. Thinks she drinks about 40ounces of fluid per day but that includes iced tea (caffeinated). Lucas stool scale 5. 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 PT-OP-I Pelvic Floor Start: 04/26/21 15:56 Freq: Status: Active Protocol: Document 05/07/21 09:45 AMB (Rec: 05/09/21 09:08 AMB [id number]) Pelvic Floor Assessment Urine Pelvic Floor Surgery Yes: hysterectomy, bladder sling Urinary Symptoms Urge Sensation,Prolapse Leakage Size Small Leakage Cause Cough,Sneeze,Urge Bowel Bowel Surgery No Bowel Symptoms Fecal Leakage,Uncontrolled Flatulence Bowel Movement Frequency 3x/day Lucas Stool Chart Type 1-7 5 Lucas Stool Chart Comments miralax Comments Pelvic Floor Comments Held on internal assessment as Yana had come to PT in September 2020. At that time she had signs consistent with Gr 2 cystocele and had weakness throughout her pelvic floor. Today we attempted biofeedback with a rectal sensor as she is most concerned with her fecal incontinence. Therapist was unable to insert sensor as pt did not tolerate. Pt then attempted to insert and pt felt there was a subjective blockage that did not allow her to insert. Pt stated that she had been able to insert hemorrhoid cream recently and that she will try to do so again at home to see if something has changed and then report back. PT-OP-T Assessment and Plan Start: 04/26/21 15:56 Freq: Status: Active Protocol: Document 05/07/21 09:45 AMB (Rec: 05/09/21 09:08 AMB [id number]) Physical Therapy Assessment Rehab Potential Rehabilitation Potential Good Evaluation Complexity Number of Personal Factors/Comorbidities 3 or More Number of Body Systems Impaired 3 Clinical Presentation at Evaluation Evolving Impairments Impairments Activity Tolerance,Functional Activities,Strength Goals Two Impairment Continence Short Term Goal (STG) Yana will have less fecal incontinence as seen by using 1-2 pads per day. STG Duration 4 weeks Endbander Goal (LTG) Yana will decrease her nocturia to 1x/night and have less urgency with it so she does not feel the need to kwong . LTG Duration 8 weeks One Impairment Pelvic floor strength Short Term Goal (STG) Yana will be able to contract her pelvic floor for 10 seconds without compensating with her abdominals. STG Duration 4 weeks Endbander Goal (LTG) Yana will contract her pelvic floor while moving from sit to stand. LTG Duration 8 weeks Assessment Summary Assessment Yana attends physical therapy for a second time with concerns regarding fecal incontinence (incontinence of small amounts of liquid stool and mucus which she does not feel when it passes). She attended only her evaluation last time and was instructed in pelvic floor strengthening which she has done but admits not consistently. Yana was not able to tolerate biofeedback sensor insertion rectally during evaluation. Discussed with her and if she feels like this is abnormal for her she could discuss with MD. Otherwise we can trial vaginal biofeedback. Physical Therapy Plan Frequency and Duration Frequency of Treatment 2x/Week Duration of Treatment 8 weeks Plan of Care Start Date 04/09/21 Plan of Care End Date 07/02/21 Therapeutic Interventions Therapeutic Interventions Home Exercise Program,Manual Therapy,Neuromuscular Re- education,Self-Care/Home Management,Therapeutic Activities,Therapeutic Exercises Modalities Biofeedback,Electric Stimulation Next Visit Focus/Plan Next Note Type Treatment Note Next Visit Plan Revisit rectal biofeedback or could consider vaginal
--- NOTE | 2021-05-07 10:15 | PT.OPPOC ---
Physical, Occupational & Speech Therapy At Current Diagnoses Cystocele, midline (05/07/21) Fecal smearing (05/07/21) Unspecified urinary incontinence (05/07/21) Visit Care Team Role Provider Type Henny Dinh PA-C Family Provider Non-Staff Primary Care Provider Specialty: Internal Medicine Address: [address] [place] [address], [id number] Email: [email or web address] Rafia Caceres MD Attending Provider Physician Referring Provider Specialty: ORACLE SOA CONSULTANT Address: [address] [place] [address], [id number] Email: Plan Of Care PT-OP-T Assessment and Plan Start: 04/26/21 15:56 Freq: Status: Active Protocol: Document 05/07/21 09:45 AMB (Rec: 05/09/21 09:08 AMB [id number]) Physical Therapy Assessment Rehab Potential Rehabilitation Potential Good Evaluation Complexity Number of Personal Factors/Comorbidities 3 or More Number of Body Systems Impaired 3 Clinical Presentation at Evaluation Evolving Impairments Impairments Activity Tolerance,Functional Activities,Strength Goals Two Impairment Continence Short Term Goal (STG) Yana will have less fecal incontinence as seen by using 1-2 pads per day. STG Duration 4 weeks Group Home Goal (LTG) Yana will decrease her nocturia to 1x/night and have less urgency with it so she does not feel the need to kwong . LTG Duration 8 weeks One Impairment Pelvic floor strength Short Term Goal (STG) Yana will be able to contract her pelvic floor for 10 seconds without compensating with her abdominals. STG Duration 4 weeks Blood Splatter Analyst Goal (LTG) Yana will contract her pelvic floor while moving from sit to stand. LTG Duration 8 weeks Assessment Summary Assessment Yana attends physical therapy for a second time with concerns regarding fecal incontinence (incontinence of small amounts of liquid stool and mucus which she does not feel when it passes). She attended only her evaluation last time and was instructed in pelvic floor strengthening which she has done but admits not consistently. Yana was not able to tolerate biofeedback sensor insertion rectally during evaluation. Discussed with her and if she feels like this is abnormal for her she could discuss with MD. Otherwise we can trial vaginal biofeedback. Physical Therapy Plan Frequency and Duration Frequency of Treatment 2x/Week Duration of Treatment 8 weeks Plan of Care Start Date 04/09/21 Plan of Care End Date 07/02/21 Therapeutic Interventions Therapeutic Interventions Home Exercise Program,Manual Therapy,Neuromuscular Re- education,Self-Care/Home Management,Therapeutic Activities,Therapeutic Exercises Modalities Biofeedback,Electric Stimulation Next Visit Focus/Plan Next Note Type Treatment Note Next Visit Plan Revisit rectal biofeedback or could consider vaginal Plan of Care Dates Plan of Care Start Date 04/09/21 Plan of Care End Date 07/02/21 Electronically Signed by: Marichuy Conrad, PT 05/09/21 1015 Please Sign and Return: I have reviewed this Plan of Care and certify that the skilled therapy services above are required to meet the patient?s needs. Physician Signature Date Printed Name and Credentials Clinical Instructor Signature Printed Name and Credentials
--- NOTE | 2021-05-18 10:02 | PT.OTN ---
Current Diagnoses Cystocele, midline (05/18/21) Fecal smearing (05/18/21) Unspecified urinary incontinence (05/18/21) Physical Therapy Treatment Note PT-OP-A Visit Information Start: 04/26/21 15:56 Freq: Status: Active Protocol: Document 05/18/21 09:46 AMB (Rec: 05/18/21 10:31 AMB [id number]) Out-Patient Physical Therapy Visit Information Visit Information Visit Type Treatment Note Visit Start Time 09:45 Visit Stop Time 10:30 Total Visit Minutes 45 Visit Number 2 PT-OP-B Current Condition Start: 04/26/21 15:56 Freq: Status: Active Protocol: Document 05/07/21 09:56 AMB (Rec: 05/07/21 10:51 AMB [id number]) Current Condition History of Current Condition Onset Date 1 year Current Complaints Urge/ stress urinary incontinence, fecal incontinence History of Current Condition Pt notes urinary urgency and fecal incontinence of mucus/ fecal smearing. Goes to the bathroom bowel movements up to 3x/day. Can be surprised by the fecal incontinence doesn't necessarily feel it. Does take miralax due to chronic constipation. Nocturia 2x. Urgency. Thinks she drinks about 40ounces of fluid per day but that includes iced tea (caffeinated). Climax stool scale 5. 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 PT-OP-C Subjective Start: 04/26/21 15:56 Freq: Status: Active Protocol: Document 05/18/21 09:46 AMB (Rec: 05/18/21 10:31 AMB [id number]) OP-PT Subjective Patient Comments Patient Comments Yana reports less nocturia- walking to the bathroom 1x/ night PT-OP-I Pelvic Floor Start: 04/26/21 15:56 Freq: Status: Active Protocol: Document 05/07/21 09:45 AMB (Rec: 05/09/21 09:08 AMB [id number]) Pelvic Floor Assessment Urine Pelvic Floor Surgery Yes: hysterectomy, bladder sling Urinary Symptoms Urge Sensation,Prolapse Leakage Size Small Leakage Cause Cough,Sneeze,Urge Bowel Bowel Surgery No Bowel Symptoms Fecal Leakage,Uncontrolled Flatulence Bowel Movement Frequency 3x/day Climax Stool Chart Type 1-7 5 Climax Stool Chart Comments miralax Comments Pelvic Floor Comments Held on internal assessment as Yana had come to PT in September 2020. At that time she had signs consistent with Gr 2 cystocele and had weakness throughout her pelvic floor. Today we attempted biofeedback with a rectal sensor as she is most concerned with her fecal incontinence. Therapist was unable to insert sensor as pt did not tolerate. Pt then attempted to insert and pt felt there was a subjective blockage that did not allow her to insert. Pt stated that she had been able to insert hemhorrhoid cream recently and that she will try to do so again at home to see if something has changed and then report back. PT-OP-Q Treatments Start: 04/26/21 15:56 Freq: Status: Active Protocol: Document 05/18/21 09:45 AMB (Rec: 05/20/21 10:02 AMB [id number]) Therapeutic Exercises Sitting Exercises Long holds/ quick flicks Sitting Exercise Name 4-10 sec Reps/Minutes 10 Comments extensive time spent on feeling contraction, extending time of long hold PT-OP-T Assessment and Plan Start: 04/26/21 15:56 Freq: Status: Active Protocol: Document 05/18/21 09:46 AMB (Rec: 05/18/21 10:31 AMB [id number]) Physical Therapy Assessment Goals Two Impairment Continence Short Term Goal (STG) Yana will have less fecal incontinence as seen by using 1-2 pads per day. STG Duration 4 weeks Half-Way Goal (LTG) Yana will decrease her nocturia to 1x/night and have less urgency with it so she does not feel the need to kwong . LTG Duration 8 weeks One Impairment Pelvic floor strength Short Term Goal (STG) Yana will be able to contract her pelvic floor for 10 seconds without compensating with her abdominals. STG Duration 4 weeks Half-Way Goal (LTG) Yana will contract her pelvic floor while moving from sit to stand. LTG Duration 8 weeks Assessment Summary Assessment Yana did not pursue biofeedback at this point as she is concerned about her prior vaginal vault surgery, discussed appropriate exercise prescription and pt to work on 10 second holds for next two weeks then we will reevaluate. Physical Therapy Plan Next Visit Focus/Plan Next Note Type Treatment Note Next Visit Plan Progress strengthening into standing/ roll in roll out, discuss frequency of fecal incontinence.
--- NOTE | 2021-06-26 10:57 | PT.OPDS ---
Current Diagnoses Cystocele, midline (05/18/21) Fecal smearing (05/18/21) Unspecified urinary incontinence (05/18/21) Visit Care Team Role Provider Type Henny Dinh PA-C Family Provider Non-Staff Primary Care Provider Specialty: Internal Medicine Address: [address] [place] [address], [address] Email: [email or web address] Rafia Caceres MD Attending Provider Physician Referring Provider Specialty: DIRECTOR OF MATERIALS Address: [address] [place] [address], [facility] Email: Visit Number Visit Number 2 Discharge Summary PT-OP-B Current Condition Start: 04/26/21 15:56 Freq: Status: Active Protocol: Document 05/07/21 09:56 AMB (Rec: 05/07/21 10:51 AMB [id number]) Current Condition History of Current Condition Onset Date 1 year Current Complaints Urge/ stress urinary incontinence, fecal incontinence History of Current Condition Pt notes urinary urgency and fecal incontinence of mucus/ fecal smearing. Goes to the bathroom bowel movements up to 3x/day. Can be surprised by the fecal incontinence doesn't necessarily feel it. Does take miralax due to chronic constipation. Nocturia 2x. Urgency. Thinks she drinks about 40ounces of fluid per day but that includes iced tea (caffeinated). Emanuel stool scale 5. 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 PT-OP-C Subjective Start: 04/26/21 15:56 Freq: Status: Active Protocol: Document 05/18/21 09:46 AMB (Rec: 05/18/21 10:31 AMB [id number]) OP-PT Subjective Patient Comments Patient Comments Yana reports less nocturia- walking to the bathroom 1x/ night PT-OP-I Pelvic Floor Start: 04/26/21 15:56 Freq: Status: Active Protocol: Document 05/07/21 09:45 AMB (Rec: 05/09/21 09:08 AMB [id number]) Pelvic Floor Assessment Urine Pelvic Floor Surgery Yes: hysterectomy, bladder sling Urinary Symptoms Urge Sensation,Prolapse Leakage Size Small Leakage Cause Cough,Sneeze,Urge Bowel Bowel Surgery No Bowel Symptoms Fecal Leakage,Uncontrolled Flatulence Bowel Movement Frequency 3x/day Emanuel Stool Chart Type 1-7 5 Emanuel Stool Chart Comments miralax Comments Pelvic Floor Comments Held on internal assessment as Yana had come to PT in September 2020. At that time she had signs consistent with Gr 2 cystocele and had weakness throughout her pelvic floor. Today we attempted biofeedback with a rectal sensor as she is most concerned with her fecal incontinence. Therapist was unable to insert sensor as pt did not tolerate. Pt then attempted to insert and pt felt there was a subjective blockage that did not allow her to insert. Pt stated that she had been able to insert hemhorrhoid cream recently and that she will try to do so again at home to see if something has changed and then report back. PT-OP-T Assessment and Plan Start: 04/26/21 15:56 Freq: Status: Active Protocol: Document 06/26/21 10:54 AMB (Rec: 06/26/21 10:57 AMB [id number]) Physical Therapy Assessment Goals Two Impairment Continence Short Term Goal (STG) Yana will have less fecal incontinence as seen by using 1-2 pads per day. STG Duration 4 weeks [facility]ci Goal (LTG) Yana will decrease her nocturia to 1x/night and have less urgency with it so she does not feel the need to kwong . LTG Duration 8 weeks One Impairment Pelvic floor strength Short Term Goal (STG) Yana will be able to contract her pelvic floor for 10 seconds without compensating with her abdominals. STG Duration 4 weeks Linotype Mechanic Goal (LTG) Yana will contract her pelvic floor while moving from sit to stand. LTG Duration 8 weeks Assessment Summary Assessment Yana was seen for two visits and then canceled her remaining appointments, stating she has other medical conditions.
== END 2021-06-29 10:00 ==
LOC: PHYS 09:45
PROVIDERS: Family Provider Physician Assistant; PCP Physician Assistant; Referring Provider Obstetrics & Gynecology; Visit Provider Obstetrics & Gynecology
DX: N81.11 Cystocele, midline (principal); R32 Unspecified urinary incontinence; R15.1 Fecal smearing
CPT/HCPCS: 97110; 97162

== ENCOUNTER → 2021-07-02 07:08 | Outpatient (CLI) | payer MEDICARE, OTHER, SELFPAY ==
[2020-04-24 11:11] VITALS: BMI 20.5
--- NOTE | 2021-07-02 07:11 | DI.RAD.S_ITS ---
PROCEDURE: XR ABDOMEN 1V INDICATIONS: bloating TECHNIQUE: One view of the abdomen acquired. COMPARISON: None. FINDINGS: Surgical changes and devices: None. Bowel: Bowel gas pattern is normal. Soft tissues: No suspicious abdominal calcifications. Visualized solid organ contours appear normal in size. Bones: Severe levoscoliosis of the thoracolumbar spine is present. IMPRESSION: No acute intra-abdominal findings. Dictated by: Patsy Pierre M.D. on 07/02/2021 at 9:20 Approved by: Patsy Pierre M.D. on 07/02/2021 at 9:20
== END ==
PROVIDERS: Family Provider Physician Assistant; PCP Physician Assistant; Referring Provider Physician Assistant; Visit Provider Physician Assistant
DX: R14.0 Abdominal distension (gaseous) (principal)
CPT/HCPCS: 74018

== ENCOUNTER → 2021-07-02 16:14 | Outpatient (CLI) | payer MEDICARE, OTHER, SELFPAY ==
[2020-04-24 11:11] VITALS: BMI 20.5
[2021-07-02 18:00] LABS: Add Manual Diff / Slide Review NO; Basophils Absolute Auto 200 /uL (0-100); Basophils Percent Auto 1.1 % (0-2); Eosinophils Absolute Auto 300 /uL (0-450); Eosinophils Percent Auto 1.8 % (2-4); Hematocrit 33.7 % (36-46); Hemoglobin 11.3 g/dL (12.0-16.0); Lymphocytes Absolute Auto 3900 /uL (1100-4500); Lymphocytes Percent Auto 22.7 % (25-40); Mean Corpuscular HGB Conc 33.6 % (30-36); Mean Corpuscular Hemoglobin 28.2 PG (26-34); Monocytes Absolute Auto 1400 /uL (0-900); Monocytes Percent Auto 7.9 % (3-14); Neutrophils Absolute Auto 11500 /uL (1500-7000); Neutrophils Percent Auto 66.5 % (50-75); Platelet Count 515 X10^3/uL (150-400); Red Blood Cell Count 4.02 X10^6/uL (4.0-5.2); Red Cell Distribution Width 15.5 % (11.6-14.8); White Blood Cell Count 17.3 X10^3/uL (4.5-11.0)
[2021-07-02 18:32] LABS: BUN Creatinine Ratio 18.3 (6-22); Blood Urea Nitrogen 19 mg/dL (7-17); Calcium 9.9 mg/dL (8.4-10.2); Carbon Dioxide 30 mmol/L (22-32); Chloride 99 mmol/L (98-107); Estimated Glomerular Filt Rate 54 mL/min (>60); Glucose 87 mg/dL (80-110); HEMOLYSIS 19 (0-50); Magnesium 2.4 mg/dL (1.6-2.3); Sodium 136 mmol/L (137-145)
[2021-07-02 19:34] LABS: Creatinine Urine Random 44.5 mg/dL; Protein (Total) Urine Random 11 mg/dL (0-12); Protein Creatinine Ratio Urine 0.24 GRAM/24H
== END ==
PROVIDERS: Family Provider Physician Assistant; PCP Physician Assistant; Referring Provider Student in an Organized Health Care Education/Training Program; Visit Provider Student in an Organized Health Care Education/Training Program
DX: Z79.899 Other long term (current) drug therapy; N05.9 Unspecified nephritic syndrome with unspecified morphologic changes; D64.9 Anemia, unspecified; R80.9 Proteinuria, unspecified
CPT/HCPCS: 36415; 74018; 80048; 82570; 83735; 84156; 85025

== ENCOUNTER → 2021-08-14 06:36 | Outpatient (CLI) | payer MEDICARE, OTHER, SELFPAY ==
[2020-04-24 11:11] VITALS: BMI 20.5
--- NOTE | 2021-08-14 06:39 | DI.RAD.S_ITS ---
PROCEDURE: XR CHEST 2V INDICATIONS: SHORTNESS OF BREATH TECHNIQUE: 2 views of the chest were acquired. COMPARISON: [facility], CT, CT ANGIO CHEST PE, 07/17/2021, 11:35. [facility], CR, XR CHEST 1V, 05/17/2020, 1:59. [facility], CR, XR CHEST 1V, 04/24/2020, 7:38. FINDINGS: Surgical changes and devices: None. Lungs and pleura: Patchy opacity is present at the right lung apex. No pleural effusion or pneumothorax. Elevation of the right hemidiaphragm is present. Mediastinum: Mediastinal and hilar contours appear similar to before. Heart size is normal. Bones and chest wall: Left convexity curvature of the thoracolumbar spine redemonstrated. IMPRESSION: Right apical pulmonary opacity is present, nonspecific. This may represent increase in size of the right apical opacity present on prior CT. Differential considerations would include pulmonary infarct or pneumonia. Repeat CT pulmonary angiogram may be helpful for further evaluation. Results discussed with Dr. Dinh by Dr. Durham at 1015 hours on 08/14/2021. Dictated by: Jose Durham M.D. on 08/14/2021 at 8:55 Approved by: Jose Durham M.D. on 08/14/2021 at 10:17
[2021-08-14 07:19] LABS: Add Manual Diff / Slide Review NO; Basophils Absolute Auto 200 /uL (0-100); Basophils Percent Auto 1.5 % (0-2); Eosinophils Absolute Auto 400 /uL (0-450); Eosinophils Percent Auto 3.2 % (2-4); Hematocrit 29.1 % (36-46); Hemoglobin 9.6 g/dL (12.0-16.0); Lymphocytes Absolute Auto 3200 /uL (1100-4500); Lymphocytes Percent Auto 25.7 % (25-40); Mean Corpuscular HGB Conc 32.9 % (30-36); Mean Corpuscular Hemoglobin 27.2 PG (26-34); Mean Corpuscular Volume 82.7 fL (80-100); Monocytes Absolute Auto 800 /uL (0-900); Monocytes Percent Auto 6.8 % (3-14); Neutrophils Absolute Auto 7800 /uL (1500-7000); Neutrophils Percent Auto 62.8 % (50-75); Platelet Count 391 X10^3/uL (150-400); Red Blood Cell Count 3.52 X10^6/uL (4.0-5.2); Red Cell Distribution Width 15.7 % (11.6-14.8); White Blood Cell Count 12.4 X10^3/uL (4.5-11.0)
== END ==
PROVIDERS: Internal Medicine Hematology & Oncology; Family Provider Physician Assistant; PCP Physician Assistant; Referring Provider Physician Assistant; Visit Provider Physician Assistant
DX: R06.02 Shortness of breath (principal); J12.9 Viral pneumonia, unspecified; D69.6 Thrombocytopenia, unspecified
CPT/HCPCS: 36415; 71046; 85025

== ENCOUNTER → 2021-08-15 14:53 | Outpatient (CLI) | payer MEDICARE, OTHER, SELFPAY ==
[2020-04-24 11:11] VITALS: BMI 20.5
--- NOTE | 2021-08-15 14:57 | DI.US.S_ITS ---
PROCEDURE: US PERIPH VENOUS LOW EXTREM BI INDICATIONS: HISTORY OF PULMONARY EMBOLI TECHNIQUE: Real-time imaging, as well as color and pulse Doppler interrogation, were performed of the deep veins of both legs from the inguinal ligament to the popliteal fossa. COMPARISON: None. FINDINGS: Right: The common femoral, femoral and popliteal veins are normally compressible, and free of intraluminal thrombus. Color and pulse Doppler demonstrate normal phasic intravascular flow. There is normal augmentation response to distal compression maneuver. Left: The common femoral, femoral and popliteal veins are normally compressible, and free of intraluminal thrombus. Color and pulse Doppler demonstrate normal phasic intravascular flow. There is normal augmentation response to distal compression maneuver. IMPRESSION: No deep venous thrombosis identified within either the left or right lower extremities. Dictated by: Driss Frye [facility] Interpreted: Jose Durham MD on 08/15/2021 at 16:40 Transcribed by: TONY on 08/15/2021 at 16:40 Approved by: Jose Durham M.D. on 08/15/2021 at 16:49
--- NOTE | 2021-08-15 14:58 | DI.CT.S_ITS ---
PROCEDURE: CT HEAD/BRAIN WO CON INDICATIONS: Multiple subsegmental pulmonary emboli TECHNIQUE: Noncontrast 4.5 mm thick angled axial sections acquired from the foramen magnum to the vertex, with coronal and sagittal reformats. For radiation dose reduction, the following was used: automated exposure control, adjustment of mA and/or kV according to patient size. COMPARISON: Located [facility], CT, CT HEAD WITHOUT CONTRAST, 11/25/2020, 21:53. Located [facility], CT, CT HEAD/BRAIN WO CON, 06/18/2020, 14:31. FINDINGS: Image quality: Excellent. CSF spaces: Basal cisterns are patent. No extra-axial fluid collections. The ventricles are symmetric in size and shape. Brain: No intracranial bleeds or masses. There is cerebral volume loss for age, with resultant ventricular and sulcal prominence. There are periventricular and deep white matter chronic small vessel ischemic changes. There is intracranial internal carotid artery atherosclerosis. Skull and face: Calvarium and visualized facial bones appear intact, without suspicious lesions. Sinuses: Visualized sinuses and mastoids are clear. IMPRESSION: No acute intracranial disease process. Dictated by: Hanny Root MD, PhD on 08/15/2021 at 17:53 Approved by: Hanny Root MD, PhD on 08/15/2021 at 17:54
== END ==
PROVIDERS: Family Provider Physician Assistant; PCP Physician Assistant; Referring Provider Internal Medicine; Visit Provider Internal Medicine
DX: R51.9 Headache, unspecified (principal); I26.94 Multiple subsegmental thrombotic pulmonary emboli without acute cor pulmonale
CPT/HCPCS: 70450; 93970

== ENCOUNTER → 2021-11-03 11:38 | Outpatient (CLI) | payer MEDICARE, OTHER, SELFPAY ==
[2020-04-24 11:11] VITALS: BMI 20.5
--- NOTE | 2021-11-03 11:41 | DI.RAD.S_ITS ---
PROCEDURE: XR WRIST RT MIN 3V INDICATIONS: Right Wrist pain TECHNIQUE: 4 views of the wrist were acquired. COMPARISON: None. FINDINGS: Bones: No fractures or dislocations. Degenerative changes are seen, which are worst along the radial aspect of the carpus. Scaphoid view: Generalized lucency can be seen within the scaphoid bone. Soft tissues: No suspicious soft tissue calcifications. IMPRESSION: There is generalized lucency seen within the scaphoid, which is nonspecific. Generalized degenerative changes are seen, which are worst along the radial aspect of the carpus. If it would be helpful for clinical management decision making, please consider a dedicated, scheduled wrist MRI for further evaluation (assuming that there is no contraindication). If there is strong clinical concern for a ligamentous abnormality, this should be performed according to the MR arthrogram protocol. Dictated by: Sam Paul M.D. on 11/03/2021 at 18:34 Approved by: Sam Paul M.D. on 11/03/2021 at 18:34
== END ==
PROVIDERS: Family Provider Physician Assistant; PCP Physician Assistant; Referring Provider Physician Assistant; Visit Provider Physician Assistant
DX: M25.531 Pain in right wrist (principal)
CPT/HCPCS: 73110

== ENCOUNTER → 2021-11-08 06:34 | Outpatient (CLI) | payer MEDICARE, OTHER, SELFPAY ==
[2020-04-24 11:11] VITALS: BMI 20.5
[2021-11-08 07:36] LABS: BUN Creatinine Ratio 20.6 (6-22); Blood Urea Nitrogen 21 mg/dL (7-17); Calcium 9.3 mg/dL (8.4-10.2); Carbon Dioxide 30 mmol/L (22-32); Chloride 103 mmol/L (98-107); Estimated Glomerular Filt Rate 55 mL/min (>60); Glucose 85 mg/dL (80-110); HEMOLYSIS < 15 (0-50); Potassium 5.2 mmol/L (3.4-5.1); Sodium 137 mmol/L (137-145)
== END ==
PROVIDERS: Family Provider Physician Assistant; PCP Physician Assistant; Referring Provider Internal Medicine; Visit Provider Internal Medicine
DX: I12.0 Hypertensive chronic kidney disease with stage 5 chronic kidney disease or end stage renal disease (principal)
CPT/HCPCS: 80048

== ENCOUNTER 2021-11-23 19:51 | Emergency (ER) | payer MEDICARE, OTHER, SELFPAY ==
[2020-04-24 11:11] VITALS: BMI 20.5
[2021-11-23] VITALS (13 sets, daily range): BP systolic 123–162; BP diastolic 58–81; PULSE 52–66; RESP 12–24; TEMP 36.3; O2SAT 94–99; BMI 19.6
--- NOTE | 2021-11-23 19:56 | DI.RAD.S_ITS ---
PROCEDURE: XR CHEST 1V INDICATIONS: chest pain TECHNIQUE: One view of the chest was acquired. COMPARISON: [facility], CT, CT ANGIO CHEST PE, 08/14/2021, 18:13. [facility], CR, XR CHEST 2V, 08/14/2021, 6:38. [facility], CR, XR CHEST 1V, 05/17/2020, 1:59. FINDINGS: Surgical changes and devices: Left upper quadrant clips. Lungs and pleura: Lungs are clear. No pleural effusions or pneumothorax. Mediastinum: Mediastinal contours appear normal. Heart size is normal. Bones and chest wall: No suspicious bony lesions. Scoliosis. Overlying soft tissues appear unremarkable. IMPRESSION: No acute cardiopulmonary abnormality. Dictated by: Carlo Mak M.D. on 11/23/2021 at 20:35 Approved by: Carlo Mak M.D. on 11/23/2021 at 20:36
--- NOTE | 2021-11-23 19:57 | ED_ITS ---
HPI - Chest Pain <Gil GarberDO herminia - Last Filed: 11/25/21 19:13> General Chief Complaint: Chest Pain Stated Complaint: Chest Pain Time Seen by Provider: 11/23/21 19:55 History of Present Illness HPI narrative: 81F nonsmoker with history of Afib on Eliquis, ITP, PE presents by EMS for evaluation of severe chest pain that started while at rest at about 2:00 p.m.. She states she was driving her car and felt a sudden onset intense pain that started in her left lower chest and extended up the left side of her chest into her jaw with associated dizziness, weakness, nausea and vomiting as well as shortness of breath. She denies obvious provocation such as exertion, deep breaths or motion and states nothing helped it until the medics arrived and gave aspirin, nitro and morphine. At her most intense her discomfort was a 10/10 and improved to less than a 1/10 by her arrival here. She denies any change in medications, recent travel or injury. She denies any prior episodes or discomfort such as this. She is had no missed medications. She has previously been established with a television specialist at [facility] and medics attempted to present to their emergency department, however were diverted here due to saturation divert at [facility]. She has had a few weeks of increasing generalized fatigue. Related Data Home Medications Medication Instructions Recorded Confirmed polyethylene glycol 3350 17 gram 17 gm PO BEDTIME PRN Constipation 05/26/17 10/29/21 oral powder packet (Miralax) ##0 lorazepam 0.5 mg tablet 0.5 mg PO BEDTIME 12/20/19 10/29/21 ascorbic acid (vitamin C) 500 mg 500 mg DAILY 02/08/20 10/29/21 tablet (Vitamin C) cholecalciferol (vitamin D3) 50 50 mcg PO DAILY 02/08/20 10/29/21 mcg (2,000 unit) capsule (Vitamin D3) elderberry fruit 200 mg capsule 200 mg PO DAILY 02/08/20 10/29/21 multivitamin 1 tab PO DAILY 02/08/20 10/29/21 vitamin B complex 1 tab PO DAILY 02/08/20 10/29/21 vitamin B12 0.5 mg-folic acid 1 mg 1 tab PO DAILY 04/05/20 10/29/21 tablet eltrombopag 12.5 mg tablet 50 mg PO DAILY 07/30/21 11/24/21 prednisone 5 mg tablet 5 mg PO Q OTHER DAY 07/30/21 10/29/21 carvedilol 6.25 mg tablet 6.25 mg PO BID 08/20/21 10/29/21 Previous Rx's Medication Instructions Recorded prochlorperazine maleate 5 mg 5 mg PO Q6H PRN Nausea #20 tabs 05/17/20 tablet (Compazine) conjugated estrogens 0.625 mg/gram 0.625 mg vaginal 2XW uretheral 07/14/20 vaginal cream caruncle #30 grams apixaban 5 mg tablet (Eliquis) 5 mg PO BID pulmonary embolism #60 09/11/21 tabs aminocaproic acid 500 mg tablet 2 g PO QID PRN Bleeding #32 tabs 10/30/21 (Amicar) Allergies Allergy/AdvReac Type Severity Reaction Status Date / Time latex Allergy Mild LOCAL RASH Verified 08/18/20 18:06 Penicillins Allergy Mild CHILDHOOD Verified 08/18/20 18:06 Sulfa (Sulfonamide Allergy Mild SOMETHING Verified 08/18/20 18:06 Antibiotics) TO DO WITH BLADDER OR KIDNEY'S?? azithromycin Allergy Verified 11/23/21 20:25 iodine AdvReac Intermediate RAPID Verified 08/18/20 18:06 HEART RATE (IV CONTRAST) Review of Systems <Gil Banda DO - Last Filed: 11/25/21 19:13> Review of Systems Narrative: GENERAL: Denies chills, fatigue, malaise, fever, sweats. HEENT: Denies sinus pain, ear pain, sore throat, difficulty swallowing, dizziness. RESPIRATORY: Denies dyspnea, cough, wheezing, hemoptysis, sputum. CARDIOVASCULAR: See HPI GASTROINTESTINAL: See HPI : Denies dysuria, frequency, incontinence, hematuria, urinary retention. MUSCULOSKELETAL: denies weakness, joint pain, or bony pain SKIN: Denies rash, skin lesions, or other NEUROLOGIC: Denies weakness, headache, numbness, change in speech, confusion, seizures, incoordination. PSYCHIATRIC: No concerning psychosocial issues. 12 point review of systems is negative except for those stated above Patient History <DO Adwoa Yo Last Filed: 11/25/21 19:13> Medical History (Updated 11/24/21 @ 09:20 by Amara Royal DO) Anxiety Atrial flutter Chronic steroid use History of ITP Hypertension Microscopic hematuria Osteoporosis Scoliosis Surgical History History of splenectomy History of tonsillectomy Status post hysterectomy Family History Father Cancer Mother Bleeding disorder Brother Brain cancer Social History marital status: household members: spouse lives independently: Yes Smoking Status: Never smoker alcohol intake: current Smoking Status: Never smoker alcohol intake frequency: a few times a week Substance Use Type: does not use Exam <Gil Banda DO - Last Filed: 11/25/21 19:13> Narrative Exam Narrative: GENERAL: [81] year old patient appears stated age. Well-developed patient, in mild distress. HEAD: Atraumatic. Normocephalic. EYES: Pupils equal round and reactive. Extraocular motions intact. No scleral icterus. No injection or drainage. ENT: Nose without bleeding, purulent drainage. Throat without erythema, tonsillar hypertrophy or exudate. Airway patent. NECK: Trachea midline. Non tender CARDIOVASCULAR: Regular rate and rhythm without murmurs, gallops, or rubs. RESPIRATORY: Clear to auscultation. Breath sounds equal bilaterally. No wheezes, rales, or rhonchi. GASTROINTESTINAL: Abdomen soft, non-tender, nondistended. EXTREMITIES: No edema or joint tenderness. BACK: Nontender without deformity or crepitance. No flank tenderness. NEURO: AOx3. SKIN: No rash or erythema of visible areas Initial Vital Signs Initial Vital Signs: Vital Signs Temperature 97.3 F L 11/23/21 19:52 Pulse Rate 60 11/23/21 19:52 Respiratory Rate 16 11/23/21 19:52 Blood Pressure 162/81 H 11/23/21 19:52 Pulse Oximetry 99 11/23/21 19:52 Oxygen Delivery Method 11/23/21 19:52 <Amara Royal DO - Last Filed: 11/24/21 18:15> Initial Vital Signs Initial Vital Signs: Vital Signs Temperature 97.3 F L 11/23/21 19:52 Pulse Rate 60 11/23/21 19:52 Respiratory Rate 16 11/23/21 19:52 Blood Pressure 162/81 H 11/23/21 19:52 Pulse Oximetry 99 11/23/21 19:52 Oxygen Delivery Method 11/23/21 19:52 Scores <Gil Banda DO - Last Filed: 11/25/21 19:13> HEART Score Heart Score history: Highly Suspicious Heart Score EKG: Non-Specific repolarization disturbance Heart Score Age: > or = 65 years old Heart Score risk factors: No known risk factors Heart Score troponin: < or = to normal limit Heart Score Total: 5 <Amara Royal DO - Last Filed: 11/24/21 18:15> HEART Score Heart Score Total: 5 Course <Gil Banda DO - Last Filed: 11/25/21 19:13> Orders Ordered: Discontinued Medications Acetaminophen (Acetaminophen 325 Mg Tablet) 650 mg PO Q6H PRN PRN Reason: Fever/Mild Pain (1-3) Last Admin: 11/24/21 09:25 Dose: 650 mg Documented By: KAVITA Aspirin (Aspirin 81 Mg Chew Tab) 324 mg PO NOW ONE Stop: 11/23/21 19:56 Last Admin: 11/23/21 20:09 Dose: Not Given Documented By: LUIS Diphenhydramine HCl (Diphenhydramine 50 Mg/Ml Vial) 25 mg IV NOW ONE Stop: 11/23/21 20:09 Last Admin: 11/23/21 20:26 Dose: 25 mg Documented By: LUIS Famotidine (Famotidine 20 Mg/2 Ml Vial) 20 mg IV NOW [facility] Last Admin: 11/23/21 20:26 Dose: 20 mg Documented By: LUIS Sodium Chloride (Normal Saline 0.9%) 1,000 mls @ 150 mls/hr IV CONT [facility] Last Infusion: 11/24/21 03:30 Dose: 0 mls/hr Documented By: Admin: 11/23/21 20:26 Dose: 150 mls/hr Documented By: LUIS Methylprednisolone (Methylprednisolone 125 Mg/2 Ml Vial) 125 mg IV NOW ONE Stop: 11/23/21 20:09 Last Admin: 11/23/21 20:26 Dose: 125 mg Documented By: LUIS Nitroglycerin (Nitroglycerin 0.4 Mg Sl Tab) 0.4 mg SL [id number] PRN PRN Reason: Chest Pain Last Admin: 11/24/21 00:47 Dose: 0.4 mg Documented By: Admin: 11/24/21 00:30 Dose: 0.4 mg Documented By: Admin: 11/24/21 00:25 Dose: 0.4 mg Documented By: BS Nitroglycerin (Nitroglycerin Oint 1 Inch/Gm Oint...G.) 1 inch TOP NOW ONE Stop: 11/24/21 00:49 Last Admin: 11/24/21 01:02 Dose: 1 inch Documented By: LIUS Non-Formulary Medication (Promacta) 12.5 mg PO DAILY MADALYN Last Admin: 11/24/21 08:10 Dose: 12.5 mg Documented By: RLS Reevaluation(s) Reevaluation #1: Patient's pain coming back, up to a 6/10, pressure-like on her left chest. Repeat EKG ordered which notes no change from prior, no ST segmental elevation or depression, T-wave inversions noted in V2 and V3 are unremarkable. Patient given nitro and brings her down to a 5 with blood pressure dropped from the 150s into the 120s. Repeat labs ordered Time: 00:35 Reevaluation #2: patient now down to 2/10 after second nitro. Time: 00:48 Consultations Consultation #1: call to Dr. Love (airline station agent [facility] Cardio) now that she is [place] with T wave inversions [facility] on divert. No discussion at this time. Vital Signs Vital signs: Vital Signs - 8 hr 11/24/21 10:30 11/24/21 10:30 11/24/21 11:00 Pulse Rate 110 H Respiratory Rate 19 Blood Pressure 149/103 H 143/72 H Pulse Oximetry 11/24/21 11:00 11/24/21 11:30 11/24/21 11:30 Pulse Rate 72 64 Respiratory Rate 18 12 Blood Pressure 133/74 Pulse Oximetry 11/24/21 12:00 11/24/21 12:00 11/24/21 12:30 Pulse Rate 69 Respiratory Rate 17 Blood Pressure 154/70 H 151/86 H Pulse Oximetry 11/24/21 12:30 11/24/21 13:00 11/24/21 13:01 Pulse Rate 100 H 105 H Respiratory Rate 21 21 Blood Pressure 156/109 H Pulse Oximetry 92 97 11/24/21 13:01 11/24/21 13:03 11/24/21 13:03 Pulse Rate 102 H 100 H Respiratory Rate 21 20 Blood Pressure 141/73 H Pulse Oximetry 97 97 11/24/21 13:30 11/24/21 13:30 11/24/21 14:00 Pulse Rate 85 Respiratory Rate 14 Blood Pressure 157/73 H 147/79 H Pulse Oximetry 97 11/24/21 14:00 11/24/21 14:30 11/24/21 14:30 Pulse Rate 71 74 Respiratory Rate 27 H Blood Pressure 140/87 Pulse Oximetry 98 98 <Amara Royal, DO - Last Filed: 11/24/21 18:15> Orders Ordered: Discontinued Medications Acetaminophen (Acetaminophen 325 Mg Tablet) 650 mg PO Q6H PRN PRN Reason: Fever/Mild Pain (1-3) Last Admin: 11/24/21 09:25 Dose: 650 mg Documented By: KAVITA Aspirin (Aspirin 81 Mg Chew Tab) 324 mg PO NOW ONE Stop: 11/23/21 19:56 Last Admin: 11/23/21 20:09 Dose: Not Given Documented By: LUIS Diphenhydramine HCl (Diphenhydramine 50 Mg/Ml Vial) 25 mg IV NOW ONE Stop: 11/23/21 20:09 Last Admin: 11/23/21 20:26 Dose: 25 mg Documented By: LUIS Famotidine (Famotidine 20 Mg/2 Ml Vial) 20 mg IV NOW [facility] Last Admin: 11/23/21 20:26 Dose: 20 mg Documented By: LUIS Sodium Chloride (Normal Saline 0.9%) 1,000 mls @ 150 mls/hr IV CONT [facility] Last Infusion: 11/24/21 03:30 Dose: 0 mls/hr Documented By: Admin: 11/23/21 20:26 Dose: 150 mls/hr Documented By: LUIS Methylprednisolone (Methylprednisolone 125 Mg/2 Ml Vial) 125 mg IV NOW ONE Stop: 11/23/21 20:09 Last Admin: 11/23/21 20:26 Dose: 125 mg Documented By: LUIS Nitroglycerin (Nitroglycerin 0.4 Mg Sl Tab) 0.4 mg SL [id number] PRN PRN Reason: Chest Pain Last Admin: 11/24/21 00:47 Dose: 0.4 mg Documented By: Admin: 11/24/21 00:30 Dose: 0.4 mg Documented By: Admin: 11/24/21 00:25 Dose: 0.4 mg Documented By: BS Nitroglycerin (Nitroglycerin Oint 1 Inch/Gm Oint...G.) 1 inch TOP NOW ONE Stop: 11/24/21 00:49 Last Admin: 11/24/21 01:02 Dose: 1 inch Documented By: LUIS Non-Formulary Medication (Promacta) 12.5 mg PO DAILY [facility] Last Admin: 11/24/21 08:10 Dose: 12.5 mg Documented By: RLS Consultations Consultation #2: Dr. Elliott, cardiology- Vital Signs Vital signs: Vital Signs - 8 hr 11/24/21 10:30 11/24/21 10:30 11/24/21 11:00 Pulse Rate 110 H Respiratory Rate 19 Blood Pressure 149/103 H 143/72 H Pulse Oximetry 11/24/21 11:00 11/24/21 11:30 11/24/21 11:30 Pulse Rate 72 64 Respiratory Rate 18 12 Blood Pressure 133/74 Pulse Oximetry 11/24/21 12:00 11/24/21 12:00 11/24/21 12:30 Pulse Rate 69 Respiratory Rate 17 Blood Pressure 154/70 H 151/86 H Pulse Oximetry 11/24/21 12:30 11/24/21 13:00 11/24/21 13:01 Pulse Rate 100 H 105 H Respiratory Rate 21 21 Blood Pressure 156/109 H Pulse Oximetry 92 97 11/24/21 13:01 11/24/21 13:03 11/24/21 13:03 Pulse Rate 102 H 100 H Respiratory Rate 21 20 Blood Pressure 141/73 H Pulse Oximetry 97 97 11/24/21 13:30 11/24/21 13:30 11/24/21 14:00 Pulse Rate 85 Respiratory Rate 14 Blood Pressure 157/73 H 147/79 H Pulse Oximetry 97 11/24/21 14:00 11/24/21 14:30 11/24/21 14:30 Pulse Rate 71 74 Respiratory Rate 27 H Blood Pressure 140/87 Pulse Oximetry 98 98 MDM - Chest Pain <Gil Banda DO - Last Filed: 11/25/21 19:13> Lab Data Result diagrams: 11/24/21 09:47 11/23/21 19:55 Labs: Lab Results 11/23/21 11/23/21 11/23/21 Range/Units 19:55 19:55 19:55 WBC 13.0 H (4.5-11.0) X10^3/uL RBC 3.74 L (4.0-5.2) X10^6/uL Hgb 9.4 L (12.0-16.0) g/dL Hct 28.9 L (36-46) % MCV 77.2 L (80-100) fL MCH 25.2 L (26-34) PG MCHC 32.6 (30-36) % RDW 16.4 H (11.6-14.8) % Plt Count 398 (150-400) X10^3/uL Neut % (Auto) 55.8 (50-75) % Lymph % (Auto) 29.3 (25-40) % [place] % (Auto) 9.3 (3-14) % Eos % (Auto) 1.8 L (2-4) % Baso % (Auto) 3.8 H (0-2) % Neut # (Auto) 7300 H (4266-0592) /uL Lymph # (Auto) 3800 (3774-0082) /uL [place] # (Auto) 1200 H (0-900) /uL Eos # (Auto) 200 (0-450) /uL Baso # (Auto) 500 H (0-100) /uL Total Counted Seg Neutrophils % (38-70) % Lymphocytes % (Manual) (25-45) % Monocytes % (Manual) (2-11) % Neutrophils # (Manual) (8580-2959) /uL RBC Morphology Hypochromasia Poikilocytosis Anisocytosis Microcytosis PT 13.8 H (10.1-12.7) SECONDS INR 1.2 (0.9-1.3) D-Dimer 1318 H (<500) ng/ml Sodium (137-145) mmol/L Potassium (3.4-5.1) mmol/L Chloride (98-107) mmol/L Carbon Dioxide (22-32) mmol/L BUN (7-17) mg/dL Creatinine (0.52-1.04) mg/dL Estimated GFR (>60) mL/min BUN/Creatinine Ratio (6-22) Glucose (80-110) mg/dL Calcium (8.4-10.2) mg/dL Total Bilirubin (0.2-1.3) mg/dL AST (14-36) IU/L ALT (<35) IU/L Alkaline Phosphatase (38-126) U/L Total Creatine Kinase (30-135) U/L CK-MB (CK-2) CK-MB (CK-2) Rel Index Troponin I (0.01-0.034) ng/mL NT-Pro-B Natriuret Pep (<450) pg/mL Total Protein (6.3-8.2) g/dL Albumin (3.5-5.0) g/dL Globulin (1.7-4.1) g/dL Albumin/Globulin Ratio (1.0-2.8) Lipase (23-300) U/L Procalcitonin 0.04 (<0.5) ng/mL Urine RBC (0-5/HPF) Urine WBC (0-5/HPF) Ur Squamous Epith Cells (0-5/HPF) Urine Bacteria (None) Ur Culture Indicated? SARS-CoV-2 (PCR) (Negative) 11/23/21 11/23/21 11/23/21 Range/Units 19:55 22:00 22:03 WBC (4.5-11.0) X10^3/uL RBC (4.0-5.2) X10^6/uL Hgb (12.0-16.0) g/dL Hct (36-46) % MCV (80-100) fL MCH (26-34) PG MCHC (30-36) % RDW (11.6-14.8) % Plt Count (150-400) X10^3/uL Neut % (Auto) (50-75) % Lymph % (Auto) (25-40) % [place] % (Auto) (3-14) % Eos % (Auto) (2-4) % Baso % (Auto) (0-2) % Neut # (Auto) (8428-2122) /uL Lymph # (Auto) (2702-6619) /uL [place] # (Auto) (0-900) /uL Eos # (Auto) (0-450) /uL Baso # (Auto) (0-100) /uL Total Counted Seg Neutrophils % (38-70) % Lymphocytes % (Manual) (25-45) % Monocytes % (Manual) (2-11) % Neutrophils # (Manual) (3741-5666) /uL RBC Morphology Hypochromasia Poikilocytosis Anisocytosis Microcytosis PT (10.1-12.7) SECONDS INR (0.9-1.3) D-Dimer (<500) ng/ml Sodium 134 L (137-145) mmol/L Potassium 3.9 (3.4-5.1) mmol/L Chloride 98 (98-107) mmol/L Carbon Dioxide 31 (22-32) mmol/L BUN 17 (7-17) mg/dL Creatinine 1.07 H (0.52-1.04) mg/dL Estimated GFR 52 L (>60) mL/min BUN/Creatinine Ratio 15.9 (6-22) Glucose 107 (80-110) mg/dL Calcium 9.4 (8.4-10.2) mg/dL Total Bilirubin 0.6 (0.2-1.3) mg/dL AST 24 (14-36) IU/L ALT 19 (<35) IU/L Alkaline Phosphatase 55 (38-126) U/L Total Creatine Kinase 55 57 (30-135) U/L CK-MB (CK-2) TNP TNP CK-MB (CK-2) Rel Index TNP TNP Troponin I < 0.012 < 0.012 (0.01-0.034) ng/mL NT-Pro-B Natriuret Pep 377 (<450) pg/mL Total Protein 7.7 (6.3-8.2) g/dL Albumin 4.2 (3.5-5.0) g/dL Globulin 3.5 (1.7-4.1) g/dL Albumin/Globulin Ratio 1.2 (1.0-2.8) Lipase 89 (23-300) U/L Procalcitonin (<0.5) ng/mL Urine RBC None seen (0-5/HPF) Urine WBC 0-1/hpf (0-5/HPF) Ur Squamous Epith Cells 1-5 /hpf (0-5/HPF) Urine Bacteria Few (2-10) H (None) Ur Culture Indicated? Specimen cultured SARS-CoV-2 (PCR) (Negative) 10/15/22 10/15/22 10/15/22 Range/Units 00:39 00:44 09:47 WBC 11.6 H (4.5-11.0) X10^3/uL RBC 3.64 L (4.0-5.2) X10^6/uL Hgb 9.2 L (12.0-16.0) g/dL Hct 28.3 L (36-46) % MCV 77.7 L (80-100) fL MCH 25.2 L (26-34) PG MCHC 32.5 (30-36) % RDW 16.7 H (11.6-14.8) % Plt Count 453 H (150-400) X10^3/uL Neut % (Auto) Not Reportable (50-75) % Lymph % (Auto) Not Reportable (25-40) % [place] % (Auto) Not Reportable (3-14) % Eos % (Auto) Not Reportable (2-4) % Baso % (Auto) Not Reportable (0-2) % Neut # (Auto) (6670-9279) /uL Lymph # (Auto) Not Reportable (9549-4468) /uL [place] # (Auto) Not Reportable (0-900) /uL Eos # (Auto) (0-450) /uL Baso # (Auto) Not Reportable (0-100) /uL Total Counted 100 Seg Neutrophils % 94.0 H (38-70) % Lymphocytes % (Manual) 5.0 L (25-45) % Monocytes % (Manual) 1.0 L (2-11) % Neutrophils # (Manual) 88020 H (7616-1881) /uL RBC Morphology See below Hypochromasia 1+ H Poikilocytosis 1+ H Anisocytosis 1+ H Microcytosis 1+ H PT (10.1-12.7) SECONDS INR (0.9-1.3) D-Dimer (<500) ng/ml Sodium (137-145) mmol/L Potassium (3.4-5.1) mmol/L Chloride (98-107) mmol/L Carbon Dioxide (22-32) mmol/L BUN (7-17) mg/dL Creatinine (0.52-1.04) mg/dL Estimated GFR (>60) mL/min BUN/Creatinine Ratio (6-22) Glucose (80-110) mg/dL Calcium (8.4-10.2) mg/dL Total Bilirubin (0.2-1.3) mg/dL AST (14-36) IU/L ALT (<35) IU/L Alkaline Phosphatase (38-126) U/L Total Creatine Kinase 42 (30-135) U/L CK-MB (CK-2) TNP CK-MB (CK-2) Rel Index TNP Troponin I < 0.012 (0.01-0.034) ng/mL NT-Pro-B Natriuret Pep (<450) pg/mL Total Protein (6.3-8.2) g/dL Albumin (3.5-5.0) g/dL Globulin (1.7-4.1) g/dL Albumin/Globulin Ratio (1.0-2.8) Lipase (23-300) U/L Procalcitonin (<0.5) ng/mL Urine RBC (0-5/HPF) Urine WBC (0-5/HPF) Ur Squamous Epith Cells (0-5/HPF) Urine Bacteria (None) Ur Culture Indicated? SARS-CoV-2 (PCR) Negative (Negative) 11/24/21 Range/Units 09:47 WBC (4.5-11.0) X10^3/uL RBC (4.0-5.2) X10^6/uL Hgb (12.0-16.0) g/dL Hct (36-46) % MCV (80-100) fL MCH (26-34) PG MCHC (30-36) % RDW (11.6-14.8) % Plt Count (150-400) X10^3/uL Neut % (Auto) (50-75) % Lymph % (Auto) (25-40) % [place] % (Auto) (3-14) % Eos % (Auto) (2-4) % Baso % (Auto) (0-2) % Neut # (Auto) (9937-0026) /uL Lymph # (Auto) (5586-5472) /uL [place] # (Auto) (0-900) /uL Eos # (Auto) (0-450) /uL Baso # (Auto) (0-100) /uL Total Counted Seg Neutrophils % (38-70) % Lymphocytes % (Manual) (25-45) % Monocytes % (Manual) (2-11) % Neutrophils # (Manual) (8832-6413) /uL RBC Morphology Hypochromasia Poikilocytosis Anisocytosis Microcytosis PT (10.1-12.7) SECONDS INR (0.9-1.3) D-Dimer (<500) ng/ml Sodium (137-145) mmol/L Potassium (3.4-5.1) mmol/L Chloride (98-107) mmol/L Carbon Dioxide (22-32) mmol/L BUN (7-17) mg/dL Creatinine (0.52-1.04) mg/dL Estimated GFR (>60) mL/min BUN/Creatinine Ratio (6-22) Glucose (80-110) mg/dL Calcium (8.4-10.2) mg/dL Total Bilirubin (0.2-1.3) mg/dL AST (14-36) IU/L ALT (<35) IU/L Alkaline Phosphatase (38-126) U/L Total Creatine Kinase (30-135) U/L CK-MB (CK-2) CK-MB (CK-2) Rel Index Troponin I < 0.012 (0.01-0.034) ng/mL NT-Pro-B Natriuret Pep (<450) pg/mL Total Protein (6.3-8.2) g/dL Albumin (3.5-5.0) g/dL Globulin (1.7-4.1) g/dL Albumin/Globulin Ratio (1.0-2.8) Lipase (23-300) U/L Procalcitonin (<0.5) ng/mL Urine RBC (0-5/HPF) Urine WBC (0-5/HPF) Ur Squamous Epith Cells (0-5/HPF) Urine Bacteria (None) Ur Culture Indicated? SARS-CoV-2 (PCR) (Negative) Urine Dip Bedside Urine Glucose Negative Bedside Urine Bilirubin - Negative Bedside Urine Ketone - Negative Urine Specific [place] 1.005 Bedside Urine Occult Blood - Negative Bedside Urine pH 7.0 Bedside Urine Protein - Negative Bedside Urine Urobilinogen - Negative Bedside Urine Nitrite - Negative Bedside Urine Leukocytes + 70 Esterase Imaging Data Chest x-ray: Radiologist's Impression: Priscilla Mahan??81??F??1940 ? Allergy/Adv: latex, Penicillins, Sulfa (Sulfonamide Antibiotics), azithromycin, iodine (More??) Close Chest/Abdomen/Pelvis CTA (Signed) Call,Carlo - 11/23/21 Chest X-Ray (Signed) Call,Carlo - 11/23/21 Wrist X-Ray (Signed) Sam Paul - 11/03/[address] (Signed) Hanny Root - 08/15/21 Vascular Ultrasound (Signed) Jose Durham - 08/15/21 Chest X-Ray (Signed) Jose Durham - 08/14/21 Abdomen X-Ray (Signed) Patsy Pierre - 07/02/[address] (Signed) Ted Ramos - 06/18/20 Chest X-Ray (Signed) Hanny Root - 05/17/20 Abdomen/Pelvis CT (Signed) Renay Ochoa - 05/17/20 Telemetry Strips 04/24/[address] (Signed) Rahul Santoyo - 04/24/20 Chest X-Ray (Signed) Marky Renteria - 04/24/[address] (Signed) Bismark Lee - 04/21/20 Chest/Abdomen/Pelvis CT (Signed) Bismark Lee - 03/03/20 Telemetry Strips 02/26/20 Pelvis Ultrasound (Signed) Marky Renteria - 02/10/20 Hip X-Ray (Signed) Bismark Lee - 08/17/19 Head/Neck CTA (Signed) Sam Paul - 03/15/19 Echocardiogram Ultrasound (Signed) Kishore Chadwick - 12/17/18 Carotid Doppler Study (Signed) Hanny Root - 12/17/18 Tibia/Fibula X-Ray (Signed) Berlin Rolle - 10/17/18 Ankle X-Ray (Signed) [place] Rolle - 10/17/18 DEXA Result 08/11/18 Outside DI 07/22/18 Launch?[address] [address] XRay Report Signed Patient: Priscilla Mahan MR#: [id number] : 1940 Acct:[id number] Age/Sex: 81 / F Date of Service: 11/23/21 Loc: ED Accession Number: [id number] ?? Procedure: XR chest 1V Ordering Provider: Gil Banda D.O. PROCEDURE:? XR CHEST 1V ? INDICATIONS:? chest pain ? TECHNIQUE:? One view of the chest was acquired.? ? COMPARISON:? [facility], CT, CT ANGIO CHEST PE, 08/14/2021, 18:13.? [facility], CR, XR CHEST 2V, 08/14/2021, 6:38.? [facility], CR, XR CHEST 1V, 05/17/2020, 1:59. ? FINDINGS:? ? Surgical changes and devices:? Left upper quadrant clips.? ? Lungs and pleura:? Lungs are clear.? No pleural effusions or pneumothorax.? ? Mediastinum:? Mediastinal contours appear normal.? Heart size is normal.? ? Bones and chest wall:? No suspicious bony lesions.? Scoliosis.? Overlying soft tissues appear unremarkable.? ? IMPRESSION:? No acute cardiopulmonary abnormality. ? ? ? Dictated by: Carlo Mak M.D. on 11/23/2021 at 20:35 ? ? Approved by: Carlo Mak M.D. on 11/23/2021 at 20:36 ? CT scan - chest: Radiologist's Impression: ?iodine (More??) Close Chest/Abdomen/Pelvis CTA (Signed) Carlo Mak - 11/23/21 Chest X-Ray (Signed) Carlo Mak - 11/23/21 Wrist X-Ray (Signed) Sam Paul - 11/03/[address] (Signed) Hanny Root - 08/15/21 Vascular Ultrasound (Signed) Jose Durham - 08/15/21 Chest X-Ray (Signed) Jose Durham - 08/14/21 Abdomen X-Ray (Signed) Patsy Pierre - 07/02/[address] (Signed) Ted Ramos - 06/18/20 Chest X-Ray (Signed) Hanny Root - 05/17/20 Abdomen/Pelvis CT (Signed) Renay Ochoa - 05/17/20 Telemetry Strips 04/24/[address] (Signed) Rahul Santoyo - 04/24/20 Chest X-Ray (Signed) Marky Renteria - 04/24/[address] (Signed) Bismark Lee - 04/21/20 Chest/Abdomen/Pelvis CT (Signed) Bismark Lee - 03/03/20 Telemetry Strips 02/26/20 Pelvis Ultrasound (Signed) Marky Renteria - 02/10/20 Hip X-Ray (Signed) Bismark Lee - 08/17/19 Head/Neck CTA (Signed) Sam Paul - 03/15/19 Echocardiogram Ultrasound (Signed) Kishore Chadwick - 12/17/18 Carotid Doppler Study (Signed) Hanny Root - 12/17/18 Tibia/Fibula X-Ray (Signed) [place] Rolle - 10/17/18 Ankle X-Ray (Signed) [place] Rolle - 10/17/18 DEXA Result 08/11/18 Outside DI 07/22/18 Launch?[place] [address] CT Scan Report Signed Patient: Priscilla Mahan MR#: [id number] : 1940 Acct:[id number] Age/Sex: 81 / F Date of Service: 11/23/21 Loc: ED Accession Number: [id number] ?? Procedure: CT angio chest abdomen pelvis Ordering Provider: Gil Banda D.O. PROCEDURE:? CT ANGIO CHEST ABDOMEN PELVIS ? INDICATIONS:? chest pain, abdominal pain, sudden onset, radiation to back ? TECHNIQUE:? Precontrast 5 mm thick sections acquired from the lung apices to the iliac crests.? After the administration of intravenous contrast, 2.5 mm thick sections again acquired from the lung apices to the iliac crests.? Maximum intensity projection (MIP) oblique sagittal and coronal reformats were then acquired.? For radiation dose reduction, the following was used:? automated exposure control.? ? COMPARISON:? [facility], CT, CT ANGIO ABDOMEN PELVIS, 05/22/2020, 3:34.? [facility], CT, CT ANGIO CHEST PE, 08/14/2021, 18:13. ? FINDINGS:? Image quality:? Excellent.? ? AORTA:? No acute aortic syndrome.? No aortic dissection.? Ascending aorta measures 3.3 cm. Bovine origin of the left CCA.? [id number] plaque at the aortic arch. ? CHEST:? Lungs and pleura:? Small opacity at the right upper lobe is slightly decreased.? Bibasilar atelectasis.? Right middle lobe nodular opacity is unchanged.? Minimal thickening at the left major fissure is unchanged.? Airways are clear.? No pleural effusions or pneumothorax.? ? Mediastinum:? Heart size is normal.? No pericardial effusion.? No mediastinal or hilar adenopathy by size criteria.? Central pulmonary arteries are normal in size.? No central pulmonary embolism.? Esophagus is normal in caliber.? No hiatal hernias.? Asymmetric elevation of the right hemidiaphragm.? ? Bones and chest wall:? No axillary adenopathy by size criteria.? Thyroid gland is unremarkable.? No suspicious bony lesions.? No vertebral body compression f ractures.? ? ? ABDOMEN:? Vasculature:? No abdominal aortic aneurysm.? Moderate plaque in the aorta and right external iliac artery.? No abdominal aortic dissection .? Narrowing at the proximal celiac artery, ().? There is irregularity in the proximal celiac artery at its bifurcation.? This could represent a focal dissection or web, ().? SMA is patent.? RIO is patent.? Moderate plaque at the renal artery ostium.? Renal arteries are patent. ? Solid organs:? Liver is normal in size and enhancement.? No focal lesion seen.? Gallbladder is unremarkable.? Biliary system is non dilated.? Pancreas enhances normally. ?Spleen is absent.? No adrenal nodules.? Both kidneys are normal in size and enhancement. ?Renal collecting systems are prominent but appears symmetric. ? Peritoneum and bowel:? No free fluid or air.? Bowel loops are normal in caliber and wall thickness.? Diverticulosis.? ? Nodes and vessels:? No retroperitoneal or mesenteric adenopathy by size criteria.? Inferior vena cava is normal in morphology.? ? Miscellaneous:? No ventral hernias.? ? ? PELVIS:? Genitourinary:? No stones.? Uterus is absent. ? Miscellaneous:? No inguinal hernias or adenopathy.? No ventral hernias.? ? Bones:? No suspicious bony lesions.? Marked scoliosis.? Height loss at L4, L3, L2.? Lucency at L1 and L4 appear unchanged compared to 05/22/2020.? Additional subtle lucencies in the thoracic spine. ? ? IMPRESSION:? 1. No aortic dissection.? No pulmonary embolism. ? 2. Small consolidation at the right upper lobe is decreased. ? 3. Narrowing at the proximal celiac artery.? Irregularity at the celiac artery at its bifurcation.? This could represent short focal dissection or web.? These findings are unchanged compared to May 2020. ? 4. Vertebral spine lucencies are unchanged. ? ? ? Dictated by: Carlo Mak M.D. on 11/23/2021 at 21:41 ? ? Approved by: Carlo Mak M.D. on 11/23/2021 at 22:00 ? MDM Narrative Medical decision making narrative: 0656 -patient is on waiting list at [facility]. There are no beds available to outside facilities for [place]. She is been pain-free for some time. She is aware of the plan and in agreement. Patient signed out to Dr. Royal for final disposition <Amara Royal DO - Last Filed: 11/24/21 18:15> Lab Data Labs: Lab Results 11/23/21 11/23/21 11/23/21 Range/Units 19:55 19:55 19:55 WBC 13.0 H (4.5-11.0) X10^3/uL RBC 3.74 L (4.0-5.2) X10^6/uL Hgb 9.4 L (12.0-16.0) g/dL Hct 28.9 L (36-46) % MCV 77.2 L (80-100) fL MCH 25.2 L (26-34) PG MCHC 32.6 (30-36) % RDW 16.4 H (11.6-14.8) % Plt Count 398 (150-400) X10^3/uL Neut % (Auto) 55.8 (50-75) % Lymph % (Auto) 29.3 (25-40) % [place] % (Auto) 9.3 (3-14) % Eos % (Auto) 1.8 L (2-4) % Baso % (Auto) 3.8 H (0-2) % Neut # (Auto) 7300 H (5654-4744) /uL Lymph # (Auto) 3800 (7406-4121) /uL [place] # (Auto) 1200 H (0-900) /uL Eos # (Auto) 200 (0-450) /uL Baso # (Auto) 500 H (0-100) /uL Total Counted Seg Neutrophils % (38-70) % Lymphocytes % (Manual) (25-45) % Monocytes % (Manual) (2-11) % Neutrophils # (Manual) (0948-2062) /uL RBC Morphology Hypochromasia Poikilocytosis Anisocytosis Microcytosis PT 13.8 H (10.1-12.7) SECONDS INR 1.2 (0.9-1.3) D-Dimer 1318 H (<500) ng/ml Sodium (137-145) mmol/L Potassium (3.4-5.1) mmol/L Chloride (98-107) mmol/L Carbon Dioxide (22-32) mmol/L BUN (7-17) mg/dL Creatinine (0.52-1.04) mg/dL Estimated GFR (>60) mL/min BUN/Creatinine Ratio (6-22) Glucose (80-110) mg/dL Calcium (8.4-10.2) mg/dL Total Bilirubin (0.2-1.3) mg/dL AST (14-36) IU/L ALT (<35) IU/L Alkaline Phosphatase (38-126) U/L Total Creatine Kinase (30-135) U/L CK-MB (CK-2) CK-MB (CK-2) Rel Index Troponin I (0.01-0.034) ng/mL NT-Pro-B Natriuret Pep (<450) pg/mL Total Protein (6.3-8.2) g/dL Albumin (3.5-5.0) g/dL Globulin (1.7-4.1) g/dL Albumin/Globulin Ratio (1.0-2.8) Lipase (23-300) U/L Procalcitonin 0.04 (<0.5) ng/mL Urine RBC (0-5/HPF) Urine WBC (0-5/HPF) Ur Squamous Epith Cells (0-5/HPF) Urine Bacteria (None) Ur Culture Indicated? SARS-CoV-2 (PCR) (Negative) 11/23/21 11/23/21 11/23/21 Range/Units 19:55 22:00 22:03 WBC (4.5-11.0) X10^3/uL RBC (4.0-5.2) X10^6/uL Hgb (12.0-16.0) g/dL Hct (36-46) % MCV (80-100) fL MCH (26-34) PG MCHC (30-36) % RDW (11.6-14.8) % Plt Count (150-400) X10^3/uL Neut % (Auto) (50-75) % Lymph % (Auto) (25-40) % [place] % (Auto) (3-14) % Eos % (Auto) (2-4) % Baso % (Auto) (0-2) % Neut # (Auto) (0853-3279) /uL Lymph # (Auto) (1340-1474) /uL [place] # (Auto) (0-900) /uL Eos # (Auto) (0-450) /uL Baso # (Auto) (0-100) /uL Total Counted Seg Neutrophils % (38-70) % Lymphocytes % (Manual) (25-45) % Monocytes % (Manual) (2-11) % Neutrophils # (Manual) (7024-4042) /uL RBC Morphology Hypochromasia Poikilocytosis Anisocytosis Microcytosis PT (10.1-12.7) SECONDS INR (0.9-1.3) D-Dimer (<500) ng/ml Sodium 134 L (137-145) mmol/L Potassium 3.9 (3.4-5.1) mmol/L Chloride 98 (98-107) mmol/L Carbon Dioxide 31 (22-32) mmol/L BUN 17 (7-17) mg/dL Creatinine 1.07 H (0.52-1.04) mg/dL Estimated GFR 52 L (>60) mL/min BUN/Creatinine Ratio 15.9 (6-22) Glucose 107 (80-110) mg/dL Calcium 9.4 (8.4-10.2) mg/dL Total Bilirubin 0.6 (0.2-1.3) mg/dL AST 24 (14-36) IU/L ALT 19 (<35) IU/L Alkaline Phosphatase 55 (38-126) U/L Total Creatine Kinase 55 57 (30-135) U/L CK-MB (CK-2) TNP TNP CK-MB (CK-2) Rel Index TNP TNP Troponin I < 0.012 < 0.012 (0.01-0.034) ng/mL NT-Pro-B Natriuret Pep 377 (<450) pg/mL Total Protein 7.7 (6.3-8.2) g/dL Albumin 4.2 (3.5-5.0) g/dL Globulin 3.5 (1.7-4.1) g/dL Albumin/Globulin Ratio 1.2 (1.0-2.8) Lipase 89 (23-300) U/L Procalcitonin (<0.5) ng/mL Urine RBC None seen (0-5/HPF) Urine WBC 0-1/hpf (0-5/HPF) Ur Squamous Epith Cells 1-5 /hpf (0-5/HPF) Urine Bacteria Few (2-10) H (None) Ur Culture Indicated? Specimen cultured SARS-CoV-2 (PCR) (Negative) 11/24/21 11/24/21 11/24/21 Range/Units 00:39 00:44 09:47 WBC 11.6 H (4.5-11.0) X10^3/uL RBC 3.64 L (4.0-5.2) X10^6/uL Hgb 9.2 L (12.0-16.0) g/dL Hct 28.3 L (36-46) % MCV 77.7 L (80-100) fL MCH 25.2 L (26-34) PG MCHC 32.5 (30-36) % RDW 16.7 H (11.6-14.8) % Plt Count 453 H (150-400) X10^3/uL Neut % (Auto) Not Reportable (50-75) % Lymph % (Auto) Not Reportable (25-40) % [place] % (Auto) Not Reportable (3-14) % Eos % (Auto) Not Reportable (2-4) % Baso % (Auto) Not Reportable (0-2) % Neut # (Auto) (4285-7434) /uL Lymph # (Auto) Not Reportable (1763-7324) /uL [place] # (Auto) Not Reportable (0-900) /uL Eos # (Auto) (0-450) /uL Baso # (Auto) Not Reportable (0-100) /uL Total Counted 100 Seg Neutrophils % 94.0 H (38-70) % Lymphocytes % (Manual) 5.0 L (25-45) % Monocytes % (Manual) 1.0 L (2-11) % Neutrophils # (Manual) 31319 H (6421-9274) /uL RBC Morphology See below Hypochromasia 1+ H Poikilocytosis 1+ H Anisocytosis 1+ H Microcytosis 1+ H PT (10.1-12.7) SECONDS INR (0.9-1.3) D-Dimer (<500) ng/ml Sodium (137-145) mmol/L Potassium (3.4-5.1) mmol/L Chloride (98-107) mmol/L Carbon Dioxide (22-32) mmol/L BUN (7-17) mg/dL Creatinine (0.52-1.04) mg/dL Estimated GFR (>60) mL/min BUN/Creatinine Ratio (6-22) Glucose (80-110) mg/dL Calcium (8.4-10.2) mg/dL Total Bilirubin (0.2-1.3) mg/dL AST (14-36) IU/L ALT (<35) IU/L Alkaline Phosphatase (38-126) U/L Total Creatine Kinase 42 (30-135) U/L CK-MB (CK-2) TNP CK-MB (CK-2) Rel Index TNP Troponin I < 0.012 (0.01-0.034) ng/mL NT-Pro-B Natriuret Pep (<450) pg/mL Total Protein (6.3-8.2) g/dL Albumin (3.5-5.0) g/dL Globulin (1.7-4.1) g/dL Albumin/Globulin Ratio (1.0-2.8) Lipase (23-300) U/L Procalcitonin (<0.5) ng/mL Urine RBC (0-5/HPF) Urine WBC (0-5/HPF) Ur Squamous Epith Cells (0-5/HPF) Urine Bacteria (None) Ur Culture Indicated? SARS-CoV-2 (PCR) Negative (Negative) 11/24/21 Range/Units 09:47 WBC (4.5-11.0) X10^3/uL RBC (4.0-5.2) X10^6/uL Hgb (12.0-16.0) g/dL Hct (36-46) % MCV (80-100) fL MCH (26-34) PG MCHC (30-36) % RDW (11.6-14.8) % Plt Count (150-400) X10^3/uL Neut % (Auto) (50-75) % Lymph % (Auto) (25-40) % [place] % (Auto) (3-14) % Eos % (Auto) (2-4) % Baso % (Auto) (0-2) % Neut # (Auto) (0277-8603) /uL Lymph # (Auto) (7229-9273) /uL [place] # (Auto) (0-900) /uL Eos # (Auto) (0-450) /uL Baso # (Auto) (0-100) /uL Total Counted Seg Neutrophils % (38-70) % Lymphocytes % (Manual) (25-45) % Monocytes % (Manual) (2-11) % Neutrophils # (Manual) (0155-7542) /uL RBC Morphology Hypochromasia Poikilocytosis Anisocytosis Microcytosis PT (10.1-12.7) SECONDS INR (0.9-1.3) D-Dimer (<500) ng/ml Sodium (137-145) mmol/L Potassium (3.4-5.1) mmol/L Chloride (98-107) mmol/L Carbon Dioxide (22-32) mmol/L BUN (7-17) mg/dL Creatinine (0.52-1.04) mg/dL Estimated GFR (>60) mL/min BUN/Creatinine Ratio (6-22) Glucose (80-110) mg/dL Calcium (8.4-10.2) mg/dL Total Bilirubin (0.2-1.3) mg/dL AST (14-36) IU/L ALT (<35) IU/L Alkaline Phosphatase (38-126) U/L Total Creatine Kinase (30-135) U/L CK-MB (CK-2) CK-MB (CK-2) Rel Index Troponin I < 0.012 (0.01-0.034) ng/mL NT-Pro-B Natriuret Pep (<450) pg/mL Total Protein (6.3-8.2) g/dL Albumin (3.5-5.0) g/dL Globulin (1.7-4.1) g/dL Albumin/Globulin Ratio (1.0-2.8) Lipase (23-300) U/L Procalcitonin (<0.5) ng/mL Urine RBC (0-5/HPF) Urine WBC (0-5/HPF) Ur Squamous Epith Cells (0-5/HPF) Urine Bacteria (None) Ur Culture Indicated? SARS-CoV-2 (PCR) (Negative) Urine Dip Bedside Urine Glucose Negative Bedside Urine Bilirubin - Negative Bedside Urine Ketone - Negative Urine Specific [place] 1.005 Bedside Urine Occult Blood - Negative Bedside Urine pH 7.0 Bedside Urine Protein - Negative Bedside Urine Urobilinogen - Negative Bedside Urine Nitrite - Negative Bedside Urine Leukocytes + 70 Esterase ECG Data Attestation: I personally reviewed and interpreted this ECG as follows: Prior ECG tracings: available for review Interpretation: EKG 3. Sinus rhythm patient has T-wave inversion in 3, lateral leads including V1, V2 V3 V4 with no elevation. Patient has rate of 63, P are 144 QRS 86, QTC 446. Patient has prior EKG lead 3 did not have inversion but otherwise no acute or dynamic changes appreciated. [facility] Narrative Medical decision making narrative: 0656 -patient is on waiting list at [facility]. There are no beds available to outside facilities for [place]. She is been pain-free for some time. She is aware of the plan and in agreement. Patient signed out to Dr. Royal for final disposition 11/24/21 Genny 0917: Patient signed out to myself for complaint unstable angina. Patient developed left-sided chest pain which improved with nitro patient is currently chest pain free. She is on Eliquis and incidentally also medication for her ITP. Patient is on Eliquis so heparin had not been started overnight, she does have new T-wave inversions in septal leads from comparison EKG from 05/16/2020 but no dynamic changes overnight. Troponin is negative x3. Will repeat CBC and troponin at 9:30 a.m. this will be 8 hours from last. Reaching out to Cardiology and multiple facilities for transfer as we do not have ability for stress testing or cardiac intervention. Patient did have CTA of chest abdomen pelvis which showed small right upper lobe consolidation improved, some celiac narrowing and some atherosclerosis but no other acute changes or clear cause of her symptoms. EKG was repeated at 8:00 a.m. jones from last with no acute change. Troponin and CBC show no acute change. Spoke with cardiology at [facility], Dr. Stephens, hospitalist accepts for transfer. <Amara Royal, DO - Last Filed: 11/24/21 18:15> Critical Care Time Critical Care Time: Yes Total Critical Care Time: 45 Attestation: The high probability of a clinically significant, sudden or life threatening deterioration of the [cardiac, pulm] system(s) required my full and direct attention, intervention and personal management. The aggregate critical care time was [cardiac] minutes. This time is in addition to time spent performing re ported procedures but includes the following: [x] Data Review and interpretation [x] Patient assessment and monitoring of vital signs [x] Documentation [x] Medication orders and management Discharge Plan Departure Patient Disposition: [facility] Clinical Impression: Unstable angina Prescriptions: No Action polyethylene glycol 3350 [Miralax] 17 GM powder in packet 17 gm PO BEDTIME PRN (Reason: Constipation) Qty: 0 conjugated estrogens 0.625 mg/gram cream 0.625 mg vaginal 2XW Qty: 30 3RF Rx Instructions: Apply 1g to vagina 2x weekly, including urethra. multivitamin Tablet 1 tab PO DAILY ascorbic acid (vitamin C) [Vitamin C] 500 mg Tablet 500 mg DAILY vitamin B complex Tablet 1 tab PO DAILY elderberry fruit 200 mg Capsule 200 mg PO DAILY cholecalciferol (vitamin D3) [Vitamin D3] 50 mcg (2,000 unit) Capsule 50 mcg PO DAILY vitamin V22-kfnan acid 0.5-1 mg Tablet 1 tab PO DAILY prochlorperazine maleate [Compazine] 5 mg Tablet 5 mg PO Q6H PRN (Reason: Nausea) Qty: 20 0RF eltrombopag 12.5 mg Tablet 50 mg PO DAILY Label Comments: patient takes at 3 am Rx Instructions: administer on an empty stomach, at least 1 hour before or 2 hours after food/meal(s) prednisone 5 mg Tablet 5 mg PO Q OTHER DAY Rx Instructions: take 7.5 mg alternating QOD with 10 mg carvedilol 6.25 mg Tablet 6.25 mg PO BID Rx Instructions: must administer with a meal/food Eliquis 5 mg Tablet 5 mg PO BID Qty: 60 0RF Rx Instructions: one pill, twice daily aminocaproic acid [Amicar] 500 mg Tablet 2 g PO QID PRN (Reason: Bleeding) Qty: 32 0RF Rx Instructions: take as needed when bleeding occurs lorazepam 0.5 mg tablet 0.5 mg PO BEDTIME Label Comments: TK 1 T PO HS ONCE D PRN FOR ANXIETy Referrals: Henny Dinh PA-C [Primary Care Provider] -
[2021-11-23 20:06] LABS: Add Manual Diff / Slide Review NO; Basophils Absolute Auto 500 /uL (0-100); Basophils Percent Auto 3.8 % (0-2); Eosinophils Absolute Auto 200 /uL (0-450); Eosinophils Percent Auto 1.8 % (2-4); Hematocrit 28.9 % (36-46); Hemoglobin 9.4 g/dL (12.0-16.0); Lymphocytes Absolute Auto 3800 /uL (1100-4500); Lymphocytes Percent Auto 29.3 % (25-40); Mean Corpuscular HGB Conc 32.6 % (30-36); Mean Corpuscular Hemoglobin 25.2 PG (26-34); Mean Corpuscular Volume 77.2 fL (80-100); Monocytes Absolute Auto 1200 /uL (0-900); Monocytes Percent Auto 9.3 % (3-14); Neutrophils Absolute Auto 7300 /uL (1500-7000); Neutrophils Percent Auto 55.8 % (50-75); Platelet Count 398 X10^3/uL (150-400); Red Blood Cell Count 3.74 X10^6/uL (4.0-5.2); Red Cell Distribution Width 16.4 % (11.6-14.8)
[2021-11-23 20:16] LABS: INR 1.2 (0.9-1.3); Prothrombin Time 13.8 SECONDS (10.1-12.7)
[2021-11-23 20:17] LABS: D Dimer 1318 ng/ml (<500)
[2021-11-23 20:21] LABS: Alanine Aminotransferase 19 IU/L (<35); Albumin 4.2 g/dL (3.5-5.0); Albumin Globulin Ratio 1.2 (1.0-2.8); Alkaline Phosphatase 55 U/L (38-126); Aspartate Aminotransferase 24 IU/L (14-36); BUN Creatinine Ratio 15.9 (6-22); Bilirubin Total 0.6 mg/dL (0.2-1.3); Blood Urea Nitrogen 17 mg/dL (7-17); Calcium 9.4 mg/dL (8.4-10.2); Carbon Dioxide 31 mmol/L (22-32); Chloride 98 mmol/L (98-107); Creatine Kinase 55 U/L (30-135); Estimated Glomerular Filt Rate 52 mL/min (>60); Globulin 3.5 g/dL (1.7-4.1); Glucose 107 mg/dL (80-110); HEMOLYSIS 15 (0-50); Lipase 89 U/L (23-300); Potassium 3.9 mmol/L (3.4-5.1); Sodium 134 mmol/L (137-145); Total Protein 7.7 g/dL (6.3-8.2)
[2021-11-23] MEDS: FAMOTIDINE 20 MG/2 ML VIAL IV (20:26)
[2021-11-23] MEDS: diphenhydrAMINE 50 MG/ML VIAL 25 MG IV (20:26)
[2021-11-23] MEDS: methylPREDNISolone 125 MG/2 ML VIAL IV (20:26)
[2021-11-23] MEDS: SODIUM CHLORIDE 0.9% 1,000 ML 150 ML IV (20:26)
[2021-11-23 20:33] LABS: NT-proBNP (BNP-Adult 18+) 377 pg/mL (<450); Troponin I < 0.012 ng/mL (0.01-0.034)
--- NOTE | 2021-11-23 20:47 | DI.CT.S_ITS ---
PROCEDURE: CT ANGIO CHEST ABDOMEN PELVIS INDICATIONS: chest pain, abdominal pain, sudden onset, radiation to back TECHNIQUE: Precontrast 5 mm thick sections acquired from the lung apices to the iliac crests. After the administration of intravenous contrast, 2.5 mm thick sections again acquired from the lung apices to the iliac crests. Maximum intensity projection (MIP) oblique sagittal and coronal reformats were then acquired. For radiation dose reduction, the following was used: automated exposure control. COMPARISON: [facility], CT, CT ANGIO ABDOMEN PELVIS, 05/22/2020, 3:34. [facility], CT, CT ANGIO CHEST PE, 08/14/2021, 18:13. FINDINGS: Image quality: Excellent. AORTA: No acute aortic syndrome. No aortic dissection. Ascending aorta measures 3.3 cm. Bovine origin of the left CCA. [id number] plaque at the aortic arch. CHEST: Lungs and pleura: Small opacity at the right upper lobe is slightly decreased. Bibasilar atelectasis. Right middle lobe nodular opacity is unchanged. Minimal thickening at the left major fissure is unchanged. Airways are clear. No pleural effusions or pneumothorax. Mediastinum: Heart size is normal. No pericardial effusion. No mediastinal or hilar adenopathy by size criteria. Central pulmonary arteries are normal in size. No central pulmonary embolism. Esophagus is normal in caliber. No hiatal hernias. Asymmetric elevation of the right hemidiaphragm. Bones and chest wall: No axillary adenopathy by size criteria. Thyroid gland is unremarkable. No suspicious bony lesions. No vertebral body compression fractures. ABDOMEN: Vasculature: No abdominal aortic aneurysm. Moderate plaque in the aorta and right external iliac artery. No abdominal aortic dissection . Narrowing at the proximal celiac artery, (). There is irregularity in the proximal celiac artery at its bifurcation. This could represent a focal dissection or web, (). SMA is patent. RIO is patent. Moderate plaque at the renal artery ostium. Renal arteries are patent. Solid organs: Liver is normal in size and enhancement. No focal lesion seen. Gallbladder is unremarkable. Biliary system is non dilated. Pancreas enhances normally. Spleen is absent. No adrenal nodules. Both kidneys are normal in size and enhancement. Renal collecting systems are prominent but appears symmetric. Peritoneum and bowel: No free fluid or air. Bowel loops are normal in caliber and wall thickness. Diverticulosis. Nodes and vessels: No retroperitoneal or mesenteric adenopathy by size criteria. Inferior vena cava is normal in morphology. Miscellaneous: No ventral hernias. PELVIS: Genitourinary: No stones. Uterus is absent. Miscellaneous: No inguinal hernias or adenopathy. No ventral hernias. Bones: No suspicious bony lesions. Marked scoliosis. Height loss at L4, L3, L2. Lucency at L1 and L4 appear unchanged compared to 05/22/2020. Additional subtle lucencies in the thoracic spine. IMPRESSION: 1. No aortic dissection. No pulmonary embolism. 2. Small consolidation at the right upper lobe is decreased. 3. Narrowing at the proximal celiac artery. Irregularity at the celiac artery at its bifurcation. This could represent short focal dissection or web. These findings are unchanged compared to May 2020. 4. Vertebral spine lucencies are unchanged. Dictated by: Carlo Mak M.D. on 11/23/2021 at 21:41 Approved by: Carlo Mak M.D. on 11/23/2021 at 22:00
[2021-11-23 21:08] LABS: Procalcitonin 0.04 ng/mL (<0.5)
[2021-11-23 22:21] LABS: Bacteria Urine Few (2-10); Culture Indicated Urine Specimen Cultured; RBC Urine None Seen (0-5/HPF); Squamous Epithelial Cell Urine 1-5 /HPF (0-5/HPF); WBC Urine 0-1/HPF (0-5/HPF)
[2021-11-23 22:22] LABS: Creatine Kinase 57 U/L (30-135)
[2021-11-23 22:35] LABS: Troponin I < 0.012 ng/mL (0.01-0.034)
[2021-11-24] VITALS (86 sets, daily range): BP systolic 105–172; BP diastolic 56–109; PULSE 54–110; RESP 9–31; O2SAT 91–99
[2021-11-24] MEDS: NITROGLYCERIN 0.4 MG SL TAB SL ×3 (00:25→00:47)
[2021-11-24 00:58] LABS: Creatine Kinase 42 U/L (30-135)
[2021-11-24] MEDS: NITROGLYCERIN OINT 1 INCH/GM OINT...G. TOP (01:02)
[2021-11-24 01:06] LABS: COVID19 -Nasal RAPID Negative (Negative)
[2021-11-24 01:10] LABS: Troponin I < 0.012 ng/mL (0.01-0.034)
--- NOTE | 2021-11-24 05:50 | PC.NURSE ---
[facility]/no waitlist for [facility] or [facility]
[2021-11-24] MEDS: PROMACTA 12.5 MG 12.5 EACH PO (08:10)
[2021-11-24] MEDS: ACETAMINOPHEN 325 MG TABLET 650 MG PO (09:25)
[2021-11-24 10:02] LABS: Hematocrit 28.3 % (36-46); Hemoglobin 9.2 g/dL (12.0-16.0); Mean Corpuscular HGB Conc 32.5 % (30-36); Mean Corpuscular Hemoglobin 25.2 PG (26-34); Mean Corpuscular Volume 77.7 fL (80-100); Platelet Count 453 X10^3/uL (150-400); Red Blood Cell Count 3.64 X10^6/uL (4.0-5.2); Red Cell Distribution Width 16.7 % (11.6-14.8); White Blood Cell Count 11.6 X10^3/uL (4.5-11.0)
[2021-11-24 10:03] LABS: Add Manual Diff / Slide Review YES
[2021-11-24 10:20] LABS: Neutrophils Absolute Manual 10904 /uL (3000-5900); Total Cells Counted 100
[2021-11-24 10:21] LABS: Anisocytosis 1+; Hypochromasia 1+; Microcytosis 1+; Poikilocytosis 1+
[2021-11-24 10:31] LABS: Troponin I < 0.012 ng/mL (0.01-0.034)
== END 2021-11-24 15:11 | disposition short-term general hospital (02) ==
PROVIDERS: Emergency Medicine; Emergency Provider Emergency Medicine; Family Provider Physician Assistant; PCP Physician Assistant
DX: I20.0 Unstable angina (principal); I48.91 Unspecified atrial fibrillation; Z79.01 Long term (current) use of anticoagulants; Z20.822 Contact with and (suspected) exposure to COVID-19
CPT/HCPCS: 36415; 71045; 71275; 74174; 80053; 81003; 81015; 82550; 83690; 83880; 84145; 84484; 85007; 85025; 85379; 85610; 87077; 87086; 87186; 87635; 93005; 93010; 96361; 96374; 96375; 99285; 99291; C9803; J1200; J2930; Q9967

== ENCOUNTER → 2022-01-24 06:46 | Outpatient (CLI) | payer MEDICARE, OTHER, SELFPAY ==
[2020-04-24 11:11] VITALS: BMI 20.5
[2022-01-24 07:14] LABS: Add Manual Diff / Slide Review NO; Basophils Absolute Auto 200 /uL (0-100); Basophils Percent Auto 1.2 % (0-2); Eosinophils Absolute Auto 200 /uL (0-450); Eosinophils Percent Auto 1.2 % (2-4); Hematocrit 36.4 % (36-46); Hemoglobin 12.2 g/dL (12.0-16.0); Lymphocytes Absolute Auto 3200 /uL (1100-4500); Lymphocytes Percent Auto 20.1 % (25-40); Mean Corpuscular HGB Conc 33.4 % (30-36); Mean Corpuscular Hemoglobin 28.6 PG (26-34); Mean Corpuscular Volume 85.7 fL (80-100); Monocytes Absolute Auto 1000 /uL (0-900); Monocytes Percent Auto 6.3 % (3-14); Neutrophils Absolute Auto 11400 /uL (1500-7000); Neutrophils Percent Auto 71.2 % (50-75); Platelet Count 133 X10^3/uL (150-400); Red Blood Cell Count 4.25 X10^6/uL (4.0-5.2); Red Cell Distribution Width 25.1 % (11.6-14.8)
[2022-01-24 08:08] LABS: Anisocytosis 2+
[2022-01-24 08:09] LABS: Acanthocytes 1+
[2022-01-24 08:11] LABS: Poikilocytosis 1+; Target Cells 1+
== END ==
PROVIDERS: Family Provider Physician Assistant; PCP Physician Assistant; Referring Provider Specialist; Visit Provider Specialist
DX: D69.9 Hemorrhagic condition, unspecified (principal)
CPT/HCPCS: 36415; 85025

== ENCOUNTER 2022-02-14 22:25 | Emergency (ER) | payer MEDICARE, OTHER, SELFPAY ==
[2020-04-24 11:11] VITALS: BMI 20.5
[2022-02-14 22:33] VITALS: BP 165/98; PULSE 90; PULSE 92; RESP 19; RESP 21; TEMP 36.6; O2SAT 96; O2SAT 97
[2022-02-14 22:53] VITALS: BP 162/102; PULSE 107; RESP 31
[2022-02-14 22:59] VITALS: BP 168/105; PULSE 113; RESP 30
[2022-02-14 23:00] VITALS: BP 171/114; PULSE 111; RESP 30; O2SAT 96
[2022-02-14 23:03] LABS: Basophils Absolute Auto 100 /uL (0-100); Basophils Percent Auto 0.8 % (0-2); Eosinophils Absolute Auto 0 /uL (0-450); Eosinophils Percent Auto 0.2 % (2-4); Hematocrit 39.5 % (36-46); Hemoglobin 13.3 g/dL (12.0-16.0); Lymphocytes Absolute Auto 3500 /uL (1100-4500); Lymphocytes Percent Auto 19.7 % (25-40); Mean Corpuscular HGB Conc 33.6 % (30-36); Mean Corpuscular Hemoglobin 29.4 PG (26-34); Mean Corpuscular Volume 87.4 fL (80-100); Monocytes Absolute Auto 900 /uL (0-900); Monocytes Percent Auto 5.2 % (3-14); Neutrophils Absolute Auto 13000 /uL (1500-7000); Neutrophils Percent Auto 74.1 % (50-75); Platelet Count 112 X10^3/uL (150-400); Red Blood Cell Count 4.51 X10^6/uL (4.0-5.2); Red Cell Distribution Width 23.1 % (11.6-14.8); White Blood Cell Count 17.5 X10^3/uL (4.5-11.0)
--- NOTE | 2022-02-14 23:03 | ED_ITS ---
HPI - General Adult General Chief complaint: Dizziness Stated complaint: dizzy- heart racing Time Seen by Provider: 02/14/22 22:31 Source: patient and EMS Mode of arrival: EMS History of Present Illness HPI narrative: Patient is a 81-year-old female who arrived by EMS. She is on anticoagulation. She is brought in by EMS after having a presyncopal episode at home. Initially the nurse's triage note states the patient was trying to have a bowel movement when the lightheadedness/dizziness occurs however she told me that she was standing at the counter when this happened. States she is had a weird feeling in the left side of her head since this morning and this has progressed as the day went on. She was touching the area of her head and then she started to have some discomfort down the back of the left side of her neck and then all of a sudden became lightheaded. She denied any chest pain or shortness of breath. She is having blood in her stool but has been having this for some time. She had a colonoscopy and an upper endoscopy recently and states she does has not felt very well since those tests were performed. She does have a history of ITP. She had lab work drawn earlier today. Related Data Home Medications Medication Instructions Recorded Confirmed polyethylene glycol 3350 17 gram 17 gm PO BEDTIME PRN Constipation 05/26/17 10/29/21 oral powder packet (Miralax) ##0 lorazepam 0.5 mg tablet 0.5 mg PO BEDTIME 12/20/19 10/29/21 ascorbic acid (vitamin C) 500 mg 500 mg DAILY 02/08/20 10/29/21 tablet (Vitamin C) cholecalciferol (vitamin D3) 50 50 mcg PO DAILY 02/08/20 10/29/21 mcg (2,000 unit) capsule (Vitamin D3) elderberry fruit 200 mg capsule 200 mg PO DAILY 02/08/20 10/29/21 multivitamin 1 tab PO DAILY 02/08/20 10/29/21 vitamin B complex 1 tab PO DAILY 02/08/20 10/29/21 vitamin B12 0.5 mg-folic acid 1 mg 1 tab PO DAILY 04/05/20 10/29/21 tablet losartan 25 mg tablet 25 mg PO DAILY 12/04/21 12/04/21 metoprolol succinate 25 mg 25 mg PO BID 12/04/21 12/04/21 tablet,extended release 24 hr Previous Rx's Medication Instructions Recorded prochlorperazine maleate 5 mg 5 mg PO Q6H PRN Nausea #20 tabs 05/17/20 tablet (Compazine) conjugated estrogens 0.625 mg/gram 0.625 mg vaginal 2XW uretheral 07/14/20 vaginal cream caruncle #30 grams aminocaproic acid 500 mg tablet 2 g PO QID PRN Bleeding #32 tabs 10/30/21 (Amicar) apixaban 5 mg tablet (Eliquis) 5 mg PO BID pulmonary embolism #60 11/27/21 tabs prednisone 10 mg tablet 10 mg PO DAILY #30 tabs 01/21/22 eltrombopag 12.5 mg tablet 62.5 mg PO DAILY #150 tabs 02/14/22 (Promacta) Allergies Allergy/AdvReac Type Severity Reaction Status Date / Time latex Allergy Mild LOCAL RASH Verified 08/18/20 18:06 Penicillins Allergy Mild CHILDHOOD Verified 08/18/20 18:06 Sulfa (Sulfonamide Allergy Mild SOMETHING Verified 08/18/20 18:06 Antibiotics) TO DO WITH BLADDER OR KIDNEY'S?? azithromycin Allergy Verified 11/23/21 20:25 iodine AdvReac Intermediate RAPID Verified 08/18/20 18:06 HEART RATE (IV CONTRAST) Review of Systems Constitutional Constitutional: Denies fever(s), Reports headache(s) and Reports malaise Eyes Eyes: Reports system reviewed and no additional complaints, except as documented ENT Ears, Nose, Mouth, and Throat: Reports system reviewed and no additional complaints, except as documented, Reports dizziness and Reports headache(s) Cardiovascular Cardiovascular: Denies chest pain, Denies rapid heart rate, Denies irregular heart rhythm and Denies dyspnea Respiratory Respiratory: Denies cough and Denies dyspnea Gastrointestinal Gastrointestinal: Denies abdominal pain, Reports hematochezia, Denies nausea and Denies vomiting Genitourinary Genitourinary: Denies dysuria Musculoskeletal Musculoskeletal: Denies arthralgias Integumentary/Breasts Skin/Breast: Denies rash Neurologic Neurologic: Reports dizziness and Reports headache(s) Hematologic/Lymphatic On Anticoagulants: Yes Allergic/Immunologic Allergic/Immunologic: Reports system reviewed and no additional complaints, except as documented Patient History Medical History (Updated 02/15/22 @ 07:00 by Nehemiah Medina DO) Anxiety Atrial flutter Chronic steroid use History of ITP Hypertension Microscopic hematuria Osteoporosis Scoliosis Surgical History History of splenectomy History of tonsillectomy Status post hysterectomy Family History Father Cancer Mother Bleeding disorder Brother Brain cancer Social History marital status: household members: spouse lives independently: Yes Smoking Status: Never smoker alcohol intake: current Smoking Status: Never smoker alcohol intake frequency: a few times a week Substance Use Type: does not use Exam Initial Vital Signs Initial Vital Signs: Vital Signs Temperature 98 F 02/14/22 22:33 Pulse Rate 90 02/14/22 22:33 Respiratory Rate 21 02/14/22 22:33 Blood Pressure 165/98 H 02/14/22 22:33 Pulse Oximetry 97 02/14/22 22:33 Oxygen Delivery Method 02/14/22 22:33 Const General: cooperative, comfortable and No ill appearing HENMT Head: normal to inspection and normocephalic Neck Neck: normal visual inspection Lymphatic: No lymphadenopathy Resp Effort & Inspection: normal respiratory effort Auscultation: clear to auscultation bilaterally Cardio Rate: regular rate Rhythm: regular rhythm GI Inspection: non-distended Palpation: soft, No firm and No tender Back/Spine/Pelvis Cervical Spine: No cervical spinal tenderness Skin Lesions: no lesions Rashes: no rashes Neuro General: patient alert, patient awake and moves all extremities Gait: normal gait Motor: muscle tone normal throughout Extrem General: capillary refill normal Psych Appearance: grossly normal and well kempt Course Orders Ordered: ED Orders 02/14/22 22:15 Complete Blood Count AUTO DIFF Stat Comprehensive Metabolic Panel Stat Lipase Stat Magnesium Stat Troponin & CK Cardiac Panel Stat 02/14/22 22:32 EKG-12 Lead Stat 02/14/22 23:04 CT head/brain wo con Stat 02/15/22 06:00 CBC Auto Diff [Complete Blood Count AUTO DIFF] Stat Vital Signs Vital signs: Vital Signs - 8 hr 02/14/22 23:05 02/14/22 22:59 02/14/22 22:59 Pulse Rate 113 H Pulse Rate [Orthostatic Lying] 92 H Pulse Rate [Orthostatic Sitting] 107 H Pulse Rate [Orthostatic Standing] 115 H Respiratory Rate 30 H Blood Pressure 168/105 H Blood Pressure [Orthostatic Lying] 172/114 H Blood Pressure [Orthostatic Sitting] 162/102 H Blood Pressure [Orthostatic Standing] 168/105 H Pulse Oximetry Oxygen Delivery Method 02/14/22 23:00 02/14/22 23:00 02/14/22 23:30 Pulse Rate 111 H 92 H Pulse Rate [Orthostatic Lying] Pulse Rate [Orthostatic Sitting] Pulse Rate [Orthostatic Standing] Respiratory Rate 30 H 13 Blood Pressure 171/114 H Blood Pressure [Orthostatic Lying] Blood Pressure [Orthostatic Sitting] Blood Pressure [Orthostatic Standing] Pulse Oximetry 96 96 Oxygen Delivery Method 02/15/22 00:01 02/15/22 00:34 02/15/22 01:00 Pulse Rate 95 H 115 H 104 H Pulse Rate [Orthostatic Lying] Pulse Rate [Orthostatic Sitting] Pulse Rate [Orthostatic Standing] Respiratory Rate 21 24 13 Blood Pressure 126/75 160/97 H Blood Pressure [Orthostatic Lying] Blood Pressure [Orthostatic Sitting] Blood Pressure [Orthostatic Standing] Pulse Oximetry 97 96 98 Oxygen Delivery Method Room Air Room Air Room Air 02/15/22 02:00 02/15/22 03:00 02/15/22 03:30 Pulse Rate 79 85 75 Pulse Rate [Orthostatic Lying] Pulse Rate [Orthostatic Sitting] Pulse Rate [Orthostatic Standing] Respiratory Rate 15 16 12 Blood Pressure Blood Pressure [Orthostatic Lying] Blood Pressure [Orthostatic Sitting] Blood Pressure [Orthostatic Standing] Pulse Oximetry 95 95 95 Oxygen Delivery Method Room Air 02/15/22 04:00 02/15/22 04:30 02/15/22 05:00 Pulse Rate 70 64 65 Pulse Rate [Orthostatic Lying] Pulse Rate [Orthostatic Sitting] Pulse Rate [Orthostatic Standing] Respiratory Rate 13 13 15 Blood Pressure Blood Pressure [Orthostatic Lying] Blood Pressure [Orthostatic Sitting] Blood Pressure [Orthostatic Standing] Pulse Oximetry 97 98 97 Oxygen Delivery Method 02/15/22 05:13 02/15/22 05:13 Pulse Rate 73 Pulse Rate [Orthostatic Lying] Pulse Rate [Orthostatic Sitting] Pulse Rate [Orthostatic Standing] Respiratory Rate 17 Blood Pressure 148/84 H Blood Pressure [Orthostatic Lying] Blood Pressure [Orthostatic Sitting] Blood Pressure [Orthostatic Standing] Pulse Oximetry 98 Oxygen Delivery Method Medical Decision Making Medical Records Medical records reviewed: Yes I reviewed the patient's medical records. Lab Data Lab results reviewed: Yes I reviewed the patient's lab results. Result diagrams: 02/15/22 06:00 02/14/22 22:15 Labs: Lab Results 02/14/22 02/14/22 02/15/22 Range/Units 22:15 22:15 06:00 WBC 17.5 H 16.0 H (4.5-11.0) X10^3/uL RBC 4.51 4.21 (4.0-5.2) X10^6/uL Hgb 13.3 12.4 (12.0-16.0) g/dL Hct 39.5 36.9 (36-46) % MCV 87.4 87.6 (80-100) fL MCH 29.4 29.3 (26-34) PG MCHC 33.6 33.5 (30-36) % RDW 23.1 H 23.0 H (11.6-14.8) % Plt Count 112 L 105 L (150-400) X10^3/uL Neut % (Auto) 74.1 68.7 (50-75) % Lymph % (Auto) 19.7 L 22.9 L (25-40) % Barry % (Auto) 5.2 6.1 (3-14) % Eos % (Auto) 0.2 L 1.0 L (2-4) % Baso % (Auto) 0.8 1.3 (0-2) % Neut # (Auto) 07042 H 10485 H (9911-1732) /uL Lymph # (Auto) 3500 3700 (4013-4088) /uL Barry # (Auto) 900 1000 H (0-900) /uL Eos # (Auto) 0 200 (0-450) /uL Baso # (Auto) 100 200 H (0-100) /uL RBC Morphology See below Anisocytosis 3+ H D Schistocytes 1+ H Sodium 131 L (137-145) mmol/L Potassium 4.5 (3.4-5.1) mmol/L Chloride 97 L (98-107) mmol/L Carbon Dioxide 25 (22-32) mmol/L BUN 19 H (7-17) mg/dL Creatinine 0.83 (0.52-1.04) mg/dL Estimated GFR > 60 (>60) mL/min BUN/Creatinine Ratio 22.9 H (6-22) Glucose 106 (80-110) mg/dL Calcium 9.7 (8.4-10.2) mg/dL Magnesium 2.3 (1.6-2.3) mg/dL Total Bilirubin 0.9 (0.2-1.3) mg/dL AST 27 (14-36) IU/L ALT 20 (<35) IU/L Alkaline Phosphatase 71 (38-126) U/L Total Creatine Kinase 52 (30-135) U/L CK-MB (CK-2) TNP CK-MB (CK-2) Rel Index TNP Troponin I < 0.012 (0.01-0.034) ng/mL Total Protein 8.1 (6.3-8.2) g/dL Albumin 4.8 (3.5-5.0) g/dL Globulin 3.3 (1.7-4.1) g/dL Albumin/Globulin Ratio 1.5 (1.0-2.8) Lipase 91 (23-300) U/L Imaging Data CT scan - head: Radiologist's Impression: [place] [address] CT Scan Report Signed Patient: Priscilla Mahan MR#: [id number] : 1940 Acct:[id number] Age/Sex: 81 / F Date of Service: 02/14/22 Loc: ED Accession Number: [id number] ?? Procedure: CT head/brain wo con Ordering Provider: Nehemiah Medina D.O. PROCEDURE:? CT HEAD/BRAIN WO CON ? INDICATIONS:? L side headache and pre-syncope ? TECHNIQUE:? Noncontrast 4.5 mm thick angled axial sections acquired from the foramen magnum to the vertex, with coronal and sagittal reformats.? For radiation dose reduction, the following was used:? automated exposure control, adjustment of mA and/or kV according to patient size.? ? COMPARISON:? [facility], CT, CT HEAD/BRAIN WO CON, 08/15/2021, 15:02. ? FINDINGS:? Image quality:? Excellent.? ? CSF spaces:? Basal cisterns are patent.? No extra-axial fluid collections.? The ventricles are symmetric in size and shape.? There is mild cerebral volume loss, with resultant ventricular and sulcal prominence.? ? Brain:? No intracranial hemorrhage, mass, or mass effect.? There are subcortical, periventricular and deep white matter hypodensities consistent with moderate chronic small vessel ischemic changes.? The moreno-white matter junction appears preserved.? There is intracranial internal carotid artery atherosclerosis.? ? Skull and face:? Calvarium and visualized facial bones appear intact, without suspicious lesions.? ? Sinuses:? Visualized sinuses and mastoids are clear.? ? IMPRESSION:? ? 1. No acute intracranial abnormality. ? 2. Moderate chronic white matter small vessel ischemic changes and mild cerebral volume loss.? ? ? Dictated by: Jayy Stevens M.D. on 02/14/2022 at 23:37 ? ? Approved by: Jayy Stevens M.D. on 02/14/2022 at 23:38?? ECG Data Attestation: I personally reviewed and interpreted this ECG as follows: Interpretation: Sinus rhythm Ventricular rate 80 Normal axis Normal QRS Normal QTC Baseline artifact noted No ST T wave changes MDM Narrative Medical decision making narrative: Patient has had episodes of tachycardia but she states she does have a history of atrial flutter. She is on anticoagulation. She is thrombocytopenic but not at a level of require any sort of transfusions. Her head CT is unremarkable. Blood pressures unremarkable. The rest of her workup here in the ER is unremarkable. Patient does not have any lateralizing signs that are concerning for CVA. She is no chest pain. Patient not anemic. No indication for blood transfusion. Her presentation is not consistent with a TIA either. She was alert oriented x3. Patient stated in the emergency department overnight because it was unsafe for her to come pick her up and she had no other ride home. She ambulated to the emergency department. She requested that we recheck her platelets. They were lower than when she arrived. I did discuss the case with Dr. Degroot on- call for Oncology who did not recommend any specific treatment or changes any of her medications. I informed the patient to this. She was concerned that maybe her platelets would continue to drop. I advised that she contact her oncologist to discuss this is there was no change needed now. Will discharge patient home with strict return precautions. Discharge Plan Departure Patient Disposition: Home Clinical Impression: Dizziness, Thrombocytopenia Instructions: DI for Dizziness-Nonvertigo Activity Restrictions/Additional Instructions: I recommend that you continue to take all of your medications as directed. I do recommend that you contact your community reinvestment act officer to discuss rechecking your platelets over the next couple days. Return to the emergency department for any new symptoms. Prescriptions: No Action polyethylene glycol 3350 [Miralax] 17 GM powder in packet 17 gm PO BEDTIME PRN (Reason: Constipation) Qty: 0 conjugated estrogens 0.625 mg/gram cream 0.625 mg vaginal 2XW Qty: 30 3RF Rx Instructions: Apply 1g to vagina 2x weekly, including urethra. multivitamin Tablet 1 tab PO DAILY ascorbic acid (vitamin C) [Vitamin C] 500 mg Tablet 500 mg DAILY vitamin B complex Tablet 1 tab PO DAILY elderberry fruit 200 mg Capsule 200 mg PO DAILY cholecalciferol (vitamin D3) [Vitamin D3] 50 mcg (2,000 unit) Capsule 50 mcg PO DAILY vitamin L32-qrwip acid 0.5-1 mg Tablet 1 tab PO DAILY prochlorperazine maleate [Compazine] 5 mg Tablet 5 mg PO Q6H PRN (Reason: Nausea) Qty: 20 0RF aminocaproic acid [Amicar] 500 mg Tablet 2 g PO QID PRN (Reason: Bleeding) Qty: 32 0RF Rx Instructions: take as needed when bleeding occurs Eliquis 5 mg Tablet 5 mg PO BID Qty: 60 0RF Label Comments: PT CURRENTLY REPORTS 2.5 MG BID Rx Instructions: one pill, twice daily losartan 25 mg Tablet 25 mg PO DAILY metoprolol succinate 25 mg Tablet Extended Release 24 Hr 25 mg PO BID prednisone 10 mg Tablet 10 mg PO DAILY Qty: 30 1RF Promacta 12.5 mg Tablet 62.5 mg PO DAILY Qty: 150 11RF Rx Instructions: administer on an empty stomach, at least 1 hour before or 2 hours after food/meal(s) lorazepam 0.5 mg tablet 0.5 mg PO BEDTIME Label Comments: TK 1 T PO HS ONCE D PRN FOR ANXIETy Referrals: Henny Dinh PA-C [Primary Care Provider] - Stand Alone Forms: Patient Portal/API
--- NOTE | 2022-02-14 23:04 | DI.CT.S_ITS ---
PROCEDURE: CT HEAD/BRAIN WO CON INDICATIONS: L side headache and pre-syncope TECHNIQUE: Noncontrast 4.5 mm thick angled axial sections acquired from the foramen magnum to the vertex, with coronal and sagittal reformats. For radiation dose reduction, the following was used: automated exposure control, adjustment of mA and/or kV according to patient size. COMPARISON: [facility], CT, CT HEAD/BRAIN WO CON, 08/15/2021, 15:02. FINDINGS: Image quality: Excellent. CSF spaces: Basal cisterns are patent. No extra-axial fluid collections. The ventricles are symmetric in size and shape. There is mild cerebral volume loss, with resultant ventricular and sulcal prominence. Brain: No intracranial hemorrhage, mass, or mass effect. There are subcortical, periventricular and deep white matter hypodensities consistent with moderate chronic small vessel ischemic changes. The moreno-white matter junction appears preserved. There is intracranial internal carotid artery atherosclerosis. Skull and face: Calvarium and visualized facial bones appear intact, without suspicious lesions. Sinuses: Visualized sinuses and mastoids are clear. IMPRESSION: 1. No acute intracranial abnormality. 2. Moderate chronic white matter small vessel ischemic changes and mild cerebral volume loss. Dictated by: Jayy Stevens M.D. on 02/14/2022 at 23:37 Approved by: Jayy Stevens M.D. on 02/14/2022 at 23:38
[2022-02-14 23:05] VITALS: BP 162/102; BP 168/105; BP 172/114; PULSE 107; PULSE 115; PULSE 92
[2022-02-14 23:06] LABS: Add Manual Diff / Slide Review SLIDE REVIEW
--- NOTE | 2022-02-14 23:16 | PC.NURSE ---
2305: Pt self transferred to [facility]. Pt voided and had smear of a BM. no geraldine blood in stool and guaiac test was negative. Orthostatic VS obtained and are negative. Pt reported dizziness when standing.
[2022-02-14 23:30] VITALS: PULSE 92; RESP 13; O2SAT 96
[2022-02-15] VITALS (11 sets, daily range): BP systolic 126–160; BP diastolic 75–97; PULSE 64–115; RESP 12–24; O2SAT 95–98
[2022-02-15 00:18] LABS: Alanine Aminotransferase 20 IU/L (<35); Albumin 4.8 g/dL (3.5-5.0); Albumin Globulin Ratio 1.5 (1.0-2.8); Alkaline Phosphatase 71 U/L (38-126); Aspartate Aminotransferase 27 IU/L (14-36); BUN Creatinine Ratio 22.9 (6-22); Bilirubin Total 0.9 mg/dL (0.2-1.3); Blood Urea Nitrogen 19 mg/dL (7-17); Calcium 9.7 mg/dL (8.4-10.2); Carbon Dioxide 25 mmol/L (22-32); Chloride 97 mmol/L (98-107); Creatine Kinase 52 U/L (30-135); Estimated Glomerular Filt Rate > 60 mL/min (>60); Globulin 3.3 g/dL (1.7-4.1); Glucose 106 mg/dL (80-110); HEMOLYSIS 43 (0-50); Lipase 91 U/L (23-300); Magnesium 2.3 mg/dL (1.6-2.3); Potassium 4.5 mmol/L (3.4-5.1); Sodium 131 mmol/L (137-145); Total Protein 8.1 g/dL (6.3-8.2)
[2022-02-15 00:29] LABS: Troponin I < 0.012 ng/mL (0.01-0.034)
[2022-02-15 02:27] LABS: Anisocytosis 3+; Schistocytes 1+
[2022-02-15 06:35] LABS: Add Manual Diff / Slide Review NO; Basophils Absolute Auto 200 /uL (0-100); Basophils Percent Auto 1.3 % (0-2); Eosinophils Absolute Auto 200 /uL (0-450); Hematocrit 36.9 % (36-46); Hemoglobin 12.4 g/dL (12.0-16.0); Lymphocytes Absolute Auto 3700 /uL (1100-4500); Lymphocytes Percent Auto 22.9 % (25-40); Mean Corpuscular HGB Conc 33.5 % (30-36); Mean Corpuscular Hemoglobin 29.3 PG (26-34); Mean Corpuscular Volume 87.6 fL (80-100); Monocytes Absolute Auto 1000 /uL (0-900); Monocytes Percent Auto 6.1 % (3-14); Neutrophils Absolute Auto 11000 /uL (1500-7000); Neutrophils Percent Auto 68.7 % (50-75); Platelet Count 105 X10^3/uL (150-400); Red Blood Cell Count 4.21 X10^6/uL (4.0-5.2)
[2022-02-15 07:27] LABS: Acanthocytes 1+; Anisocytosis 2+
[2022-02-15 07:28] LABS: Poikilocytosis 1+
== END 2022-02-15 07:16 | disposition home or self-care (01) ==
PROVIDERS: Emergency Provider Emergency Medicine; Family Provider Physician Assistant; PCP Physician Assistant
DX: R42 Dizziness and giddiness (principal); D69.6 Thrombocytopenia, unspecified; D69.3 Immune thrombocytopenic purpura; D50.9 Iron deficiency anemia, unspecified; I26.93 Single subsegmental thrombotic pulmonary embolism without acute cor pulmonale
CPT/HCPCS: 36415; 70450; 80053; 82550; 82553; 83690; 83735; 84484; 85025; 93005; 93010; 99283; 99284

== ENCOUNTER 2022-03-14 07:21 | Emergency (ER) | payer MEDICARE, OTHER, SELFPAY ==
[2020-04-24 11:11] VITALS: BMI 20.5
--- NOTE | 2022-03-14 07:29 | DI.RAD.S_ITS ---
PROCEDURE: XR CHEST 1V INDICATIONS: chest pain TECHNIQUE: One view of the chest was acquired. COMPARISON: [facility], CR, XR CHEST 1 VIEW, 03/13/2022, 7:53. [facility], CR, XR CHEST 1V, 11/23/2021, 20:10. FINDINGS: Surgical changes and devices: None. Lungs and pleura: Lungs are clear. No pleural effusions or pneumothorax. Mediastinum: Mediastinal contours appear normal. Heart size is normal. Bones and chest wall: No suspicious bony lesions. Overlying soft tissues appear unremarkable. Scoliotic curvature of the spine again noted. IMPRESSION: No acute cardiopulmonary abnormality. No significant interval change. Approved by: Jose Antony M.D. on 03/14/2022 at 8:07
--- NOTE | 2022-03-14 07:30 | ED.DIZZY ---
HPI - Dizziness General Chief Complaint: Dizziness Stated Complaint: dizzy-headache Time Seen by Provider: 03/14/22 07:29 Source: patient, EMS, RN notes reviewed and old records reviewed Mode of arrival: EMS Limitations: no limitations History of Present Illness HPI Narrative: This is a female with history of AFib, ITP, pulmonary emboli and hypertension patient was just discharged from [facility] for low platelets and states she is receiving high-dose steroids and was supposed to receive 6 units of platelets but states that there was some sort of issue when she did not receive the full dose. Patient states last night she started feeling dizzy she states she feels dizzy today she states it feels like the room is sort of spinning and she asked to hang onto something. She also notes she is been hypertensive she had a systolic of 199 at home. Patient states she had issues during her hospitalizations and that she maybe was not discharged on the proper doses of blood pressure medications. She denies headache but states little pressure in the temporal area. She states no acute vision changes. Patient states she has had similar symptoms in the past. She notes that her memory seems a little bit off today she can remember some things but not other things but states that is also been going on for a little while. She does note that the high-dose steroids are making her very emotional and she thinks that might be contributing to her symptoms. She denies any chest pain or pressure, she felt a little short of breath earlier this morning she states that is gone. She had nausea on the right over with EMS but does not currently. No vomiting. No diarrhea or constipation states she is taking a laxative and smooth move to help with regular stools. No dysuria urgency frequency or incontinence. She denies numbness, tingling or weakness or issues with speech. Patient states she is supposed to be on lisinopril she thinks she was discharged home with 30 mg dose but she is not sure if she took it last night, she also is not sure she actually took her steroids this morning or not. Primary care is through [facility] is Henny Dinh but is supposed to be transferring to Dr. Bach. Dr. Yanez is her oncologist. Obtaining records from [facility]. Patient notes she has not appointment this morning at 8:00 a.m. with her oncologist which she will be missing. Related Data Home Medications Medication Instructions Recorded Confirmed polyethylene glycol 3350 17 gram 17 gm PO BEDTIME PRN Constipation 05/26/17 02/21/22 oral powder packet (Miralax) ##0 lorazepam 0.5 mg tablet 0.5 mg PO BEDTIME 12/20/19 02/21/22 ascorbic acid (vitamin C) 500 mg 500 mg DAILY 02/08/20 02/21/22 tablet (Vitamin C) cholecalciferol (vitamin D3) 50 50 mcg PO DAILY 02/08/20 02/21/22 mcg (2,000 unit) capsule (Vitamin D3) elderberry fruit 200 mg capsule 200 mg PO DAILY 02/08/20 02/21/22 multivitamin 1 tab PO DAILY 02/08/20 02/21/22 vitamin B complex 1 tab PO DAILY 02/08/20 02/21/22 vitamin B12 0.5 mg-folic acid 1 mg 1 tab PO DAILY 04/05/20 02/21/22 tablet lisinopril 20 mg tablet 20 mg PO DAILY 02/21/22 02/21/22 Previous Rx's Medication Instructions Recorded prochlorperazine maleate 5 mg 5 mg PO Q6H PRN Nausea #20 tabs 05/17/20 tablet (Compazine) conjugated estrogens 0.625 mg/gram 0.625 mg vaginal 2XW uretheral 07/14/20 vaginal cream caruncle #30 grams aminocaproic acid 500 mg tablet 2 g PO QID PRN Bleeding #32 tabs 10/30/21 (Amicar) prednisone 10 mg tablet 10 mg PO DAILY #30 tabs 01/21/22 lisinopril 30 mg tablet 30 mg PO DAILY #20 tabs 03/14/22 prednisone 20 mg tablet 20 mg PO DAILY #7 tabs 03/14/22 Allergies Allergy/AdvReac Type Severity Reaction Status Date / Time latex Allergy Mild LOCAL RASH Verified 03/14/22 07:55 Penicillins Allergy Mild CHILDHOOD Verified 03/14/22 07:55 Sulfa (Sulfonamide Allergy Mild SOMETHING Verified 03/14/22 07:55 Antibiotics) TO DO WITH BLADDER OR KIDNEY'S?? azithromycin Allergy Verified 03/14/22 07:55 iodine AdvReac Intermediate RAPID Verified 03/14/22 07:55 HEART RATE (IV CONTRAST) Review of Systems Review of Systems ROS Unobtainable: All systems reviewed & are unremarkable except as noted in HPI and below Patient History Medical History (Updated 03/14/22 @ 08:30 by Amara Royal DO) Anxiety Atrial flutter Chronic steroid use History of ITP Hypertension Microscopic hematuria Osteoporosis Scoliosis Surgical History History of splenectomy History of tonsillectomy Status post hysterectomy Family History Father Cancer Mother Bleeding disorder Brother Brain cancer Social History marital status: household members: spouse lives independently: Yes Smoking Status: Never smoker alcohol intake: current Smoking Status: Never smoker alcohol intake frequency: a few times a week Substance Use Type: does not use Exam Narrative Exam Narrative: GEN: well nourished, well appearing female, alert and oriented x 3, patient appears to be in mild distress. HEENT: Atraumatic, pupils are equal round reactive to light, extraocular movements are intact, no nystagmus, nares are clear, TMs are clear with no fluid, there is no conjunctival pallor. Throat is clear without any exudates, erythema, tonsillar enlargement or uvular deviation, no facial droop. Normal speech. HEART: Regular rate and rhythm without murmur, clicks, rubs. Pulses are equal in upper and lower extremities LUNGS:Lungs clear to auscultation, no wheezes, rales, crackles, chest moves symmetrically ABD:bowel sounds normal, soft, non-tender, no guarding, rebound, rigidity, no masses noted, no hepatosplenomegaly :No CVA tenderness MSCL: Non-tender, no muscle atrophy, muscles strength 5/5 upper and lower extremities, full range of motion. NEURO:CN 2-12 intact, sensation normal, finger nose finger test normal, heel skinner test normal SKIN: Patient has some chronic venous stasis changes anterior shins. No petechiae appreciated. No rash, erythema or other skin changes noted. Initial Vital Signs Initial Vital Signs: Vital Signs Temperature 97.6 F 03/14/22 07:47 Pulse Rate 58 L 03/14/22 07:47 Respiratory Rate 18 03/14/22 07:47 Blood Pressure 188/96 H 03/14/22 07:47 Pulse Oximetry 96 03/14/22 07:47 Oxygen Delivery Method 03/14/22 07:47 Scores NIH Stroke Scale Level of Conciousness: Alert, keenly responsive Ask month/age: Answers both questions correctly. Open/close eyes, close hand: Performs both tasks correctly Best gaze horizontal: Normal Visual davis: No visual loss Facial palsy: Normal symetrical movement Left arm drift: No drift for full 10 sec Right arm drift: No drift for full 10 sec Left leg drift: No drift for full 5 sec Right leg drift: No drift for full 5 sec Limb ataxia: Absent Sensory on face/arms/legs: Normal, no sensory loss Best language: No aphasia, normal Dysarthria: Normal Extinction or inattention: No abnormality Total NIH Stroke scale score: 0 Course Orders Ordered: Discontinued Medications Aspirin (Aspirin 81 Mg Chew Tab) 324 mg PO NOW ONE Stop: 03/14/22 07:29 Last Admin: 03/14/22 08:20 Dose: Not Given Documented By: BENITA Lisinopril (Lisinopril 20 Mg Tablet) 20 mg PO NOW ONE Stop: 03/14/22 09:03 Last Admin: 03/14/22 09:41 Dose: 20 mg Documented By: BENITA Consultations Consultation #1: Dr. Yanez, oncology: Recommends that patient since she has finished her 40 mg of dexamethasone to take prednisone 20 mg once daily for the next week though continue to monitor her platelets on Mondays, and Saturdays and he will see her in the next week. Time: 10:31 Vital Signs Vital signs: Vital Signs - 8 hr 03/14/22 10:55 03/14/22 11:49 Pulse Rate 52 L 58 L Respiratory Rate 16 16 Blood Pressure 175/81 H 187/93 H Pulse Oximetry 96 96 Oxygen Delivery Method Room Air Room Air MDM - Dizziness Lab Data 03/14/22 07:24 03/14/22 07:24 Labs: Lab Results 03/14/22 03/14/22 03/14/22 Range/Units 07:24 07:24 07:24 WBC 17.4 H (4.5-11.0) X10^3/uL RBC 4.69 (4.0-5.2) X10^6/uL Hgb 14.2 (12.0-16.0) g/dL Hct 42.0 (36-46) % MCV 89.6 (80-100) fL MCH 30.3 (26-34) PG MCHC 33.8 (30-36) % RDW 19.0 H (11.6-14.8) % Plt Count 274 (150-400) X10^3/uL Neut % (Auto) 85.9 H (50-75) % Lymph % (Auto) 7.9 L (25-40) % [place] % (Auto) 6.1 (3-14) % Eos % (Auto) 0.0 L (2-4) % Baso % (Auto) 0.1 (0-2) % Neut # (Auto) 12903 H (4397-0758) /uL Lymph # (Auto) 1400 (2278-5653) /uL [place] # (Auto) 1100 H (0-900) /uL Eos # (Auto) 0 (0-450) /uL Baso # (Auto) 0 (0-100) /uL PT 10.5 (10.1-12.7) SECONDS INR 0.9 (0.9-1.3) APTT 25 L (26-36) SECONDS Sodium 135 L (137-145) mmol/L Potassium 4.5 (3.4-5.1) mmol/L Chloride 96 L (98-107) mmol/L Carbon Dioxide 33 H (22-32) mmol/L BUN 35 H (7-17) mg/dL Creatinine 0.75 (0.52-1.04) mg/dL Estimated GFR > 60 (>60) mL/min BUN/Creatinine Ratio 46.7 H (6-22) Glucose 109 (80-110) mg/dL Calcium 9.3 (8.4-10.2) mg/dL Magnesium 2.5 H (1.6-2.3) mg/dL Total Bilirubin 0.8 (0.2-1.3) mg/dL AST 27 (14-36) IU/L ALT 31 (<35) IU/L Alkaline Phosphatase 75 (38-126) U/L Total Creatine Kinase 42 (30-135) U/L CK-MB (CK-2) TNP CK-MB (CK-2) Rel Index TNP Troponin I 0.035 H (0.01-0.034) ng/mL NT-Pro-B Natriuret Pep (<450) pg/mL Total Protein 8.7 H (6.3-8.2) g/dL Albumin 4.2 (3.5-5.0) g/dL Globulin 4.5 H (1.7-4.1) g/dL Albumin/Globulin Ratio 0.9 L (1.0-2.8) Lipase 117 (23-300) U/L Urine RBC (0-5/HPF) Urine WBC (0-5/HPF) Ur Squamous Epith Cells (0-5/HPF) Urine Bacteria (None) Ur Culture Indicated? 03/14/22 03/14/22 03/14/22 Range/Units 08:26 08:48 09:30 WBC (4.5-11.0) X10^3/uL RBC (4.0-5.2) X10^6/uL Hgb (12.0-16.0) g/dL Hct (36-46) % MCV (80-100) fL MCH (26-34) PG MCHC (30-36) % RDW (11.6-14.8) % Plt Count (150-400) X10^3/uL Neut % (Auto) (50-75) % Lymph % (Auto) (25-40) % [place] % (Auto) (3-14) % Eos % (Auto) (2-4) % Baso % (Auto) (0-2) % Neut # (Auto) (6094-8277) /uL Lymph # (Auto) (7795-6320) /uL [place] # (Auto) (0-900) /uL Eos # (Auto) (0-450) /uL Baso # (Auto) (0-100) /uL PT (10.1-12.7) SECONDS INR (0.9-1.3) APTT (26-36) SECONDS Sodium (137-145) mmol/L Potassium (3.4-5.1) mmol/L Chloride (98-107) mmol/L Carbon Dioxide (22-32) mmol/L BUN (7-17) mg/dL Creatinine (0.52-1.04) mg/dL Estimated GFR (>60) mL/min BUN/Creatinine Ratio (6-22) Glucose (80-110) mg/dL Calcium (8.4-10.2) mg/dL Magnesium (1.6-2.3) mg/dL Total Bilirubin (0.2-1.3) mg/dL AST (14-36) IU/L ALT (<35) IU/L Alkaline Phosphatase (38-126) U/L Total Creatine Kinase (30-135) U/L CK-MB (CK-2) CK-MB (CK-2) Rel Index Troponin I 0.029 (0.01-0.034) ng/mL NT-Pro-B Natriuret Pep 1130 H (<450) pg/mL Total Protein (6.3-8.2) g/dL Albumin (3.5-5.0) g/dL Globulin (1.7-4.1) g/dL Albumin/Globulin Ratio (1.0-2.8) Lipase (23-300) U/L Urine RBC None seen (0-5/HPF) Urine WBC 1-5/hpf (0-5/HPF) Ur Squamous Epith Cells None seen (0-5/HPF) Urine Bacteria Moderate (10-30) H (None) Ur Culture Indicated? Specimen cultured Urine Dip Bedside Urine Glucose Negative Bedside Urine Bilirubin - Negative Bedside Urine Ketone - Negative Urine Specific [place]ford 1.015 Bedside Urine Occult Blood +/- Bedside Urine pH 7.0 Bedside Urine Protein - Negative Bedside Urine Urobilinogen - Negative Bedside Urine Nitrite - Negative Bedside Urine Leukocytes - Negative Esterase Imaging Data Chest x-ray: Radiologist's Impression: No acute change, no significant interval change. CT scan - head: Radiologist's Impression: [place] [address] CT Scan Report Signed Patient: Priscilla Mahan MR#: [id number] : 1940 Acct:[id number] Age/Sex: 81 / F Date of Service: 03/14/22 Loc: ED Accession Number: [id number] ?? Procedure: CT head/brain wo con Ordering Provider: Amara Royal D.O. PROCEDURE:? CT HEAD/BRAIN WO CON ? INDICATIONS:? dizziness, htn, hx itp ? TECHNIQUE:? Noncontrast 4.5 mm thick angled axial sections acquired from the foramen magnum to the vertex, with coronal and sagittal reformats.? For radiation dose reduction, the following was used:? automated exposure control, adjustment of mA and/or kV according to patient size.? ? COMPARISON:? [facility], CT, CT HEAD/BRAIN WO CON, 02/14/2022, 23:09. ? FINDINGS:? Image quality:? Excellent.? ? CSF spaces:? Basal cisterns are patent.? No extra-axial fluid collections.? The ventricles are symmetric in size and shape.? ? Brain:? No intracranial bleeds or masses.? There is cerebral volume loss for age, with resultant ventricular and sulcal prominence.? There are periventricular and deep white matter chronic small vessel ischemic changes.? There is intracranial internal carotid artery atherosclerosis.? ? Skull and face:? Calvarium and visualized facial bones appear intact, without suspicious lesions.? ? Sinuses:? Visualized sinuses and mastoids are clear.? ? IMPRESSION:? No acute intracranial abnormality. ? ? Dictated by: Rhiannon Burns M.D. on 03/14/2022 at 8:42 ? ? Approved by: Rhiannon Burns M.D. on 03/14/2022 at 8:43?? ECG Data Attestation: I personally reviewed and interpreted this ECG as follows: Prior ECG tracings: available for review Interpretation: Sinus bradycardia with PVCs, rate of 57 PA 116 QRS 86 QT 444. Patient has little bit of a new inversion in V6 but inverted T-waves in lateral leads were present on prior EKG from 02/14/2022 patient has inverted T-wave in lead [address] elevation noted. Bradycardia rate of 60 2p are 116 QRS 84, QTC of 452. No new ST depression, no elevation appreciated lead 6 does not appear inverted additional leads appear unchanged. MDM Narrative Medical decision making narrative: This is a 81-year-old female who presents with complaint of dizziness, hypertension. Patient's blood pressure is elevated, her NIH is 0. Patient does complain of some memory issues and is also quite emotional which he states is atypical and she relates likely to her steroid use. Patient states room felt like it was spinning she would hang onto the wall it is worse with movement when she still it is improved. No vomiting. Patient does describe these symptoms intermittently in the past. She describes a little bit of shortness of breath earlier this morning and some mild nausea which has resolved. She denies any new swelling in her extremities no other GI or urinary symptoms. No other neurologic symptoms. Patient is unsure if she took her blood pressure medications this morning or even last night. She states they were adjusted from her hospitalization at [facility] she was discharged yesterday and relates that she was frustrated with her care as her seemed to be issues with blood pressure management and she received sounds like platelets but maybe not a full 6 pack she states there was an issue with the way they were ordered but has been on I high-dose IV steroids for her ITP and she was having significant thrombocytopenia it appears from her chart from [facility] she received 1 g Solu-Medrol daily x3 days, then 20 mg Decadron twice daily x2 days and started steroid taper. She is to continue her lisinopril she is on Amicar daily, lisinopril famotidine, lorazepam and Reclast as needed does appear she is had a prior cardiac catheterization in the past unclear she is had stents. Quit smoking 40 years ago. platelets were 6 on 03/08/2022 with a sodium of 132 at that time, and on discharge yesterday on March 13 her platelets were 236. Patient had head CT, labs including CBC, CMP, troponin-patient's platelets are significantly improved in the 270 range today, she has a leukocytosis possibly secondary infection but also suspect her high-dose steroids could be causing a reaction. Hemoglobin is appropriate at 14. Coags do not show major changes. Sodium 135, potassium 4 5 with a chloride 96 CO2 of 33 and a BUN of 35 max 2.5 with a troponin of 0.035. Patient did have some complaint of shortness of breath earlier will repeat her troponin the 2 hour jones, here EKG showed T-wave inversions the majority are present on old EKG the only change was in V6 from 02/14/2022 the rest in lateral leads were present on prior EKG with no new ST elevation. Chest x-ray does not show any acute changes or signs of CHF, infection. Head CT shows Patient notes that she is unsure if she took her blood pressure medication this morning or even last night this could be contributing to her hypertension today was monitored and is slowly improving. After discussion patient states she should be on lisinopril 30 mg daily so prescription was sent for this. I spoke with her oncologist she is to continue with prednisone 20 mg for the next week, have her platelets checked and follow-up with them and they will taper as needed. Patient does express some issues with not a lot of support from her or daughter who have difficulties with transportation assistance for her. She is open to having [employer]PER[employer] reach out for possibly home health care additional community resources. Think this might be helpful. Discharge Plan Departure Patient Disposition: Home Clinical Impression: Dizziness, Hypertension, History of ITP Activity Restrictions/Additional Instructions: Please follow up with your oncology team, talk with them to set up a follow-up. They would like to continue to monitor your platelets on Friday, and Friday and see you in the next week. The social media marketing manager is going to reach out to talk to about home health care and immunity resources that home. It appears that you should be continuing with lisinopril 30 mg daily for your blood pressure control based on your discharge instructions from [facility]. You received a dose of your lisinopril here in the ER today. I spoke with your oncologist he would like you to take 20 mg of prednisone once daily for the next week until you see him. Prescription sent to [facility] in [place]. Your heart rate did drop during your stay this may be contributing to your symptoms at times. Talk with your physician about having a Holter monitor as an outpatient. Please return for new or worsening symptoms severe headaches, inappropriate bleeding, new chest pain, shortness of breath, passing out, persistent vomiting or other new or concerning changes. Prescriptions: New lisinopril 30 mg tablet 30 mg PO DAILY Qty: 20 0RF prednisone 20 mg tablet 20 mg PO DAILY Qty: 7 0RF No Action polyethylene glycol 3350 [Miralax] 17 GM powder in packet 17 gm PO BEDTIME PRN (Reason: Constipation) Qty: 0 conjugated estrogens 0.625 mg/gram cream 0.625 mg vaginal 2XW Qty: 30 3RF Rx Instructions: Apply 1g to vagina 2x weekly, including urethra. multivitamin Tablet 1 tab PO DAILY ascorbic acid (vitamin C) [Vitamin C] 500 mg Tablet 500 mg DAILY vitamin B complex Tablet 1 tab PO DAILY elderberry fruit 200 mg Capsule 200 mg PO DAILY cholecalciferol (vitamin D3) [Vitamin D3] 50 mcg (2,000 unit) Capsule 50 mcg PO DAILY vitamin [id number] acid 0.5-1 mg Tablet 1 tab PO DAILY prochlorperazine maleate [Compazine] 5 mg Tablet 5 mg PO Q6H PRN (Reason: Nausea) Qty: 20 0RF aminocaproic acid [Amicar] 500 mg Tablet 2 g PO QID PRN (Reason: Bleeding) Qty: 32 0RF Rx Instructions: take as needed when bleeding occurs prednisone 10 mg Tablet 10 mg PO DAILY Qty: 30 1RF lisinopril 20 mg Tablet 20 mg PO DAILY lorazepam 0.5 mg tablet 0.5 mg PO BEDTIME Label Comments: TK 1 T PO HS ONCE D PRN FOR ANXIETy Referrals: Henny Dinh PA-C [Primary Care Provider] - Stand Alone Forms: Patient Portal/API
[2022-03-14 07:36] LABS: Add Manual Diff / Slide Review NO; Basophils Absolute Auto 0 /uL (0-100); Basophils Percent Auto 0.1 % (0-2); Eosinophils Absolute Auto 0 /uL (0-450); Hemoglobin 14.2 g/dL (12.0-16.0); Lymphocytes Absolute Auto 1400 /uL (1100-4500); Lymphocytes Percent Auto 7.9 % (25-40); Mean Corpuscular HGB Conc 33.8 % (30-36); Mean Corpuscular Hemoglobin 30.3 PG (26-34); Mean Corpuscular Volume 89.6 fL (80-100); Monocytes Absolute Auto 1100 /uL (0-900); Monocytes Percent Auto 6.1 % (3-14); Neutrophils Absolute Auto 15000 /uL (1500-7000); Neutrophils Percent Auto 85.9 % (50-75); Platelet Count 274 X10^3/uL (150-400); Red Blood Cell Count 4.69 X10^6/uL (4.0-5.2); White Blood Cell Count 17.4 X10^3/uL (4.5-11.0)
[2022-03-14 07:44] LABS: INR 0.9 (0.9-1.3); Prothrombin Time 10.5 SECONDS (10.1-12.7)
[2022-03-14 07:46] LABS: PTT Partial Thromboplastin Tim 25 SECONDS (26-36)
[2022-03-14 07:47] VITALS: BP 188/96; PULSE 58; RESP 18; TEMP 36.4; O2SAT 96
[2022-03-14 07:52] LABS: Alanine Aminotransferase 31 IU/L (<35); Albumin 4.2 g/dL (3.5-5.0); Albumin Globulin Ratio 0.9 (1.0-2.8); Alkaline Phosphatase 75 U/L (38-126); Aspartate Aminotransferase 27 IU/L (14-36); BUN Creatinine Ratio 46.7 (6-22); Bilirubin Total 0.8 mg/dL (0.2-1.3); Blood Urea Nitrogen 35 mg/dL (7-17); Calcium 9.3 mg/dL (8.4-10.2); Carbon Dioxide 33 mmol/L (22-32); Chloride 96 mmol/L (98-107); Creatine Kinase 42 U/L (30-135); Estimated Glomerular Filt Rate > 60 mL/min (>60); Globulin 4.5 g/dL (1.7-4.1); Glucose 109 mg/dL (80-110); HEMOLYSIS < 15 (0-50); Lipase 117 U/L (23-300); Magnesium 2.5 mg/dL (1.6-2.3); Potassium 4.5 mmol/L (3.4-5.1); Sodium 135 mmol/L (137-145); Total Protein 8.7 g/dL (6.3-8.2)
[2022-03-14 08:03] LABS: Troponin I 0.035 ng/mL (0.01-0.034)
--- NOTE | 2022-03-14 08:24 | DI.CT.S_ITS ---
PROCEDURE: CT HEAD/BRAIN WO CON INDICATIONS: dizziness, htn, hx itp TECHNIQUE: Noncontrast 4.5 mm thick angled axial sections acquired from the foramen magnum to the vertex, with coronal and sagittal reformats. For radiation dose reduction, the following was used: automated exposure control, adjustment of mA and/or kV according to patient size. COMPARISON: [facility], CT, CT HEAD/BRAIN WO CON, 02/14/2022, 23:09. FINDINGS: Image quality: Excellent. CSF spaces: Basal cisterns are patent. No extra-axial fluid collections. The ventricles are symmetric in size and shape. Brain: No intracranial bleeds or masses. There is cerebral volume loss for age, with resultant ventricular and sulcal prominence. There are periventricular and deep white matter chronic small vessel ischemic changes. There is intracranial internal carotid artery atherosclerosis. Skull and face: Calvarium and visualized facial bones appear intact, without suspicious lesions. Sinuses: Visualized sinuses and mastoids are clear. IMPRESSION: No acute intracranial abnormality. Dictated by: Rhiannon Burns M.D. on 03/14/2022 at 8:42 Approved by: Rhiannon Burns M.D. on 03/14/2022 at 8:43
[2022-03-14 08:45] VITALS: BP 175/88; PULSE 63; RESP 21; O2SAT 97
[2022-03-14 08:50] LABS: NT-proBNP (BNP-Adult 18+) 1130 pg/mL (<450)
[2022-03-14 09:00] VITALS: BP 188/83; PULSE 53; RESP 19; O2SAT 96
[2022-03-14 09:14] LABS: Bacteria Urine Moderate (10-30); RBC Urine None Seen (0-5/HPF); Squamous Epithelial Cell Urine None Seen (0-5/HPF); WBC Urine 1-5/HPF (0-5/HPF)
[2022-03-14 09:15] LABS: Culture Indicated Urine Specimen Cultured
[2022-03-14 09:41] VITALS: BP 179/89; PULSE 54
[2022-03-14] MEDS: lisinopriL 20 MG TABLET PO (09:41)
[2022-03-14 10:16] LABS: Troponin I 0.029 ng/mL (0.01-0.034)
[2022-03-14 10:55] VITALS: BP 175/81; PULSE 52; RESP 16; O2SAT 96
--- NOTE | 2022-03-14 11:15 | PC.NURSE ---
Phone call with daughter: ER discharge dosing of Prednisone clarified with pt's daughter Nehal; pt to take 20mg of Prednisone PO QD for one week until she sees Dr. Yanez. Dr. Yanez appt confirmed with Nehal 03/21/22 check-in at 8am for 8:20 appt, labs to be done prior, verbalized understanding. Also clarified pt's current platelet count; PLT as of today is 274.
[2022-03-14 11:49] VITALS: BP 187/93; PULSE 58; RESP 16; O2SAT 96
== END 2022-03-14 11:49 | disposition home or self-care (01) ==
PROVIDERS: Emergency Medicine; Emergency Provider Emergency Medicine; Family Provider Physician Assistant; PCP Physician Assistant
DX: R42 Dizziness and giddiness (principal); I10 Essential (primary) hypertension; Z86.2 Personal history of diseases of the blood and blood-forming organs and certain disorders involving the immune mechanism; R29.700 NIHSS score 0; R79.89 Other specified abnormal findings of blood chemistry; R07.9 Chest pain, unspecified
CPT/HCPCS: 36415; 70450; 71045; 80053; 81003; 81015; 82550; 83690; 83735; 83880; 84484; 85025; 85610; 85730; 87077; 87086; 87185; 87186; 93005; 99284

== ENCOUNTER 2022-04-01 16:33 | Inpatient (IN) | payer MEDICARE, OTHER, SELFPAY ==
[2020-04-24 11:11] VITALS: BMI 20.5
[2022-04-01] VITALS (17 sets, daily range): BP systolic 104–162; BP diastolic 56–82; PULSE 75–128; RESP 13–24; TEMP 36.6; O2SAT 93–99
--- NOTE | 2022-04-01 16:35 | DI.RAD.S_ITS ---
PROCEDURE: XR CHEST 1V INDICATIONS: chest pain TECHNIQUE: One view of the chest was acquired. COMPARISON: [facility], CR, XR CHEST 1V, 03/14/2022, 7:37. FINDINGS: Surgical changes and devices: None. Lungs and pleura: Lungs are clear. No pleural effusions or pneumothorax. Mediastinum: Mediastinal contours appear normal. Heart size is normal. Bones and chest wall: No suspicious bony lesions. Scoliotic curvature, as before. Overlying soft tissues appear unremarkable. IMPRESSION: No evidence acute pulmonary process. Dictated by: Manolo Li M.D. on 04/01/2022 at 16:56 Approved by: Manolo Li M.D. on 04/01/2022 at 16:57
[2022-04-01 16:50] LABS: Add Manual Diff / Slide Review NO; Basophils Absolute Auto 100 /uL (0-100); Basophils Percent Auto 0.7 % (0-2); Eosinophils Absolute Auto 0 /uL (0-450); Eosinophils Percent Auto 0.1 % (2-4); Hematocrit 42.9 % (36-46); Hemoglobin 14.9 g/dL (12.0-16.0); Lymphocytes Absolute Auto 1400 /uL (1100-4500); Lymphocytes Percent Auto 7.9 % (25-40); Mean Corpuscular HGB Conc 34.6 % (30-36); Mean Corpuscular Hemoglobin 31.4 PG (26-34); Mean Corpuscular Volume 90.7 fL (80-100); Monocytes Absolute Auto 800 /uL (0-900); Monocytes Percent Auto 4.4 % (3-14); Neutrophils Absolute Auto 14900 /uL (1500-7000); Neutrophils Percent Auto 86.9 % (50-75); Platelet Count 64 X10^3/uL (150-400); Red Blood Cell Count 4.73 X10^6/uL (4.0-5.2); Red Cell Distribution Width 16.9 % (11.6-14.8); White Blood Cell Count 17.2 X10^3/uL (4.5-11.0)
[2022-04-01 16:53] LABS: Alanine Aminotransferase 24 IU/L (<35); Albumin 4.7 g/dL (3.5-5.0); Albumin Globulin Ratio 1.3 (1.0-2.8); Alkaline Phosphatase 67 U/L (38-126); Aspartate Aminotransferase 31 IU/L (14-36); BUN Creatinine Ratio 14.7 (6-22); Bilirubin Total 1.1 mg/dL (0.2-1.3); Blood Urea Nitrogen 45 mg/dL (7-17); Calcium 10.8 mg/dL (8.4-10.2); Carbon Dioxide 27 mmol/L (22-32); Chloride 91 mmol/L (98-107); Creatine Kinase 37 U/L (30-135); Estimated Glomerular Filt Rate 15 mL/min (>60); Globulin 3.7 g/dL (1.7-4.1); Glucose 94 mg/dL (80-110); HEMOLYSIS 21 (0-50); Lipase 109 U/L (23-300); Potassium 4.6 mmol/L (3.4-5.1); Sodium 131 mmol/L (137-145); Total Protein 8.4 g/dL (6.3-8.2)
--- NOTE | 2022-04-01 16:55 | DI.CT.S_ITS ---
PROCEDURE: CT CERVICAL SPINE WO CON INDICATIONS: confused/ fall TECHNIQUE: Noncontrast 3 mm thick sections acquired from the skull base to the T4 level. Sagittal and coronal reformats were then constructed. For radiation dose reduction, the following was used: automated exposure control, adjustment of mA and/or kV according to patient size. COMPARISON: [facility], CT, CT HEAD/BRAIN WO CON, 04/01/2022, 17:05. [facility], CR, CERVICAL SPINE 4 OR 5 VIEWS, 11/25/2016, 10:49. FINDINGS: Image quality: Excellent. Bones: No fractures or dislocations. Visualized superior ribs are intact. There is mild reversal of the normal cervical lordosis, with the apex at the C4 level. There is moderate disc space narrowing at C4-C5, with moderate to severe disc space narrowing at C5-C6 and C6-C7. Posteriorly directed endplate osteophytes are seen at C5-C6 and C6-C7. Soft tissues: Prevertebral soft tissues are normal in thickness. No paravertebral hematomas. No apical pneumothoraces. Atherosclerotic calcification is noted. IMPRESSION: Negative for fracture. Cervical spine degenerative changes are seen, which are worst inferiorly. Dictated by: Sam Paul M.D. on 04/01/2022 at 16:28 Approved by: Sam Paul M.D. on 04/01/2022 at 16:30
--- NOTE | 2022-04-01 16:55 | DI.CT.S_ITS ---
PROCEDURE: CT HEAD/BRAIN WO CON INDICATIONS: confused/ fall TECHNIQUE: Noncontrast 4.5 mm thick angled axial sections acquired from the foramen magnum to the vertex, with coronal and sagittal reformats. For radiation dose reduction, the following was used: automated exposure control, adjustment of mA and/or kV according to patient size. COMPARISON: [facility], MR, MR BRAIN WITHOUT CONTRAST, 03/27/2022, 13:03. [facility], CT, CT HEAD WITHOUT CONTRAST, 03/26/2022, 9:20. [facility], CT, CT CERVICAL SPINE WO CON, 04/01/2022, 17:05. [facility], CT, CT HEAD/BRAIN WO CON, 03/14/2022, 8:33. FINDINGS: Image quality: Excellent. CSF spaces: Basal cisterns are patent. No extra-axial fluid collections. The ventricles are symmetric in size and shape. Brain: No intracranial bleeds or masses. There is cerebral volume loss for age, with resultant ventricular and sulcal prominence. There are periventricular and deep white matter chronic small vessel ischemic changes. There is intracranial internal carotid artery atherosclerosis. Skull and face: Calvarium and visualized facial bones appear intact, without suspicious lesions. Sinuses: Visualized sinuses and mastoids are clear. 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 IMPRESSION: No acute intracranial hemorrhage is seen. No acute intracranial process is seen. Dictated by: Sam Paul M.D. on 04/01/2022 at 16:26 Approved by: Sam Paul M.D. on 04/01/2022 at 16:28
[2022-04-01 17:03] LABS: NT-proBNP (BNP-Adult 18+) 863 pg/mL (<450)
[2022-04-01 17:05] LABS: Troponin I 0.119 ng/mL (0.01-0.034)
[2022-04-01 17:10] LABS: Procalcitonin 0.21 ng/mL (<0.5)
[2022-04-01] MEDS: SODIUM CHLORIDE 0.9% 1,000 ML 150 ML IV (17:23)
--- NOTE | 2022-04-01 17:38 | ED.AMS ---
HPI - Altered Mental Status <Gil GarberDO herminia - Last Filed: 04/02/22 07:34> General Chief Complaint: Altered Mental Status Stated Complaint: weakness/nausea Time Seen by Provider: 04/01/22 16:35 Source: EMS Mode of arrival: EMS History of Present Illness HPI narrative: 81-year-old female nonsmoker with history of pulmonary embolism and infarction, chronic ITP, iron deficiency anemia, thrombocytopenia, recent hospitalization for hyponatremia, hallucinations and delusions. She had been admitted at [facility] for about 1 week and was discharged yesterday home. She apparently has been profoundly weak, perhaps even worse and had a fall yesterday but is confused about the details of this fall and it is actually unclear she did fall but is altered from her baseline without focal neurologic findings. She is had poor appetite. She denies any blurred vision or trouble with speech. She denies any fever or chills, chest pain or shortness of breath Related Data Home Medications Medication Instructions Recorded Confirmed polyethylene glycol 3350 17 gram 17 gm PO BEDTIME PRN Constipation 05/26/17 04/02/22 oral powder packet (Miralax) ##0 cholecalciferol (vitamin D3) 50 50 mcg PO DAILY 02/08/20 04/02/22 mcg (2,000 unit) capsule (Vitamin D3) multivitamin 1 tab PO DAILY 02/08/20 04/02/22 vitamin B complex 1 tab PO DAILY 02/08/20 04/02/22 vitamin B12 0.5 mg-folic acid 1 mg 1 tab PO DAILY 04/05/20 04/02/22 tablet Previous Rx's Medication Instructions Recorded conjugated estrogens 0.625 mg/gram 0.625 mg vaginal 2XW uretheral 07/14/20 vaginal cream caruncle #30 grams aminocaproic acid 500 mg tablet 2 g PO QID PRN Bleeding #32 tabs 10/30/21 (Amicar) lisinopril 30 mg tablet 30 mg PO DAILY #30 tabs 04/05/22 lorazepam 0.5 mg tablet 0.5 mg PO BEDTIME #30 tabs 04/05/22 melatonin 3 mg tablet 3 mg PO BEDTIME #30 tabs 04/05/22 pantoprazole 20 mg tablet,delayed 20 mg PO 0600 #30 tabs 04/05/22 release prednisone 5 mg tablet 15 mg PO DIRECTED #90 tabs 04/05/22 Allergies Allergy/AdvReac Type Severity Reaction Status Date / Time latex Allergy Mild LOCAL RASH Verified 04/01/22 16:50 Penicillins Allergy Mild CHILDHOOD Verified 04/01/22 16:50 Sulfa (Sulfonamide Allergy Mild SOMETHING Verified 04/01/22 16:50 Antibiotics) TO DO WITH BLADDER OR KIDNEY'S?? azithromycin Allergy Verified 04/01/22 16:50 iodine AdvReac Intermediate RAPID Verified 04/01/22 16:50 HEART RATE (IV CONTRAST) Review of Systems <Gil Banda DO - Last Filed: 04/02/22 07:34> Review of Systems ROS Unobtainable: Unobtainable due to mental status/LOC Patient History <Gil Banda DO - Last Filed: 04/02/22 07:34> Medical History Anxiety Atrial flutter Chronic steroid use History of ITP Hypertension Microscopic hematuria Osteoporosis Scoliosis Surgical History History of splenectomy History of tonsillectomy Status post hysterectomy Family History Father Cancer Mother Bleeding disorder Brother Brain cancer Social History marital status: household members: spouse lives independently: Yes Smoking Status: Former smoker alcohol intake: former Smoking Status: Never smoker alcohol intake frequency: a few times a week Substance Use Type: does not use Exam <Gil Banda DO - Last Filed: 04/02/22 07:34> Narrative Exam Narrative: GENERAL: [81] year old patient appears stated age. Well-developed patient, in mild distress. Pleasantly confused, GCS 14 HEAD: Atraumatic. Normocephalic. EYES: Pupils equal round and reactive. Extraocular motions intact. No scleral icterus. No injection or drainage. ENT: Dry mucous membranes, Nose without bleeding, purulent drainage. Throat without erythema, tonsillar hypertrophy or exudate. Airway patent. NECK: Trachea midline. Non tender CARDIOVASCULAR: Regular rate and rhythm without murmurs, gallops, or rubs. RESPIRATORY: Clear to auscultation. Breath sounds equal bilaterally. No wheezes, rales, or rhonchi. GASTROINTESTINAL: Abdomen soft, non-tender, nondistended. EXTREMITIES: No edema or joint tenderness. BACK: Nontender without deformity or crepitance. No flank tenderness. NEURO: Cranial nerves 2-12 grossly intact SKIN: Poor skin turgor No rash or erythema of visible areas Initial Vital Signs Initial Vital Signs: Vital Signs Temperature 98 F 04/01/22 16:33 Pulse Rate 104 H 04/01/22 16:33 Respiratory Rate 18 04/01/22 16:33 Pulse Oximetry 97 04/01/22 16:33 Oxygen Delivery Method 04/01/22 16:33 <Jovon Herr MD - Last Filed: 04/02/22 06:43> Initial Vital Signs Initial Vital Signs: Vital Signs Temperature 98 F 04/01/22 16:33 Pulse Rate 104 H 04/01/22 16:33 Respiratory Rate 18 04/01/22 16:33 Pulse Oximetry 97 04/01/22 16:33 Oxygen Delivery Method 04/01/22 16:33 <Nehemiah Medina DO - Last Filed: 04/06/22 01:58> Initial Vital Signs Initial Vital Signs: Vital Signs Temperature 98 F 04/01/22 16:33 Pulse Rate 104 H 04/01/22 16:33 Respiratory Rate 18 04/01/22 16:33 Pulse Oximetry 97 04/01/22 16:33 Oxygen Delivery Method 04/01/22 16:33 Course <Gil Banda DO - Last Filed: 04/02/22 07:34> Orders Ordered: Discontinued Medications Acetaminophen (Acetaminophen 325 Mg Tablet) 650 mg PO Q6H PRN PRN Reason: Fever/Mild Pain (1-3) Sodium Chloride (Normal Saline 0.9%) 1,000 mls @ 150 mls/hr IV CONT MADALYN Stop: 04/02/22 03:06 Last Infusion: 04/02/22 04:00 Dose: 0 mls/hr Documented By: Admin: 04/02/22 01:30 Dose: 150 mls/hr Documented By: Infusion: 04/02/22 01:04 Dose: 150 mls/hr Documented By: Infusion: 04/01/22 19:47 Dose: 150 mls/hr Documented By: Infusion: 04/01/22 18:46 Dose: 0 mls/hr Documented By: Admin: 04/01/22 17:23 Dose: 150 mls/hr Documented By: RB Sodium Chloride (Normal Saline 0.9%) 1,000 mls @ 1,000 mls/hr IV BOLUS ONE Stop: 04/01/22 18:41 Last Infusion: 04/01/22 19:47 Dose: 0 mls/hr Documented By: Admin: 04/01/22 18:48 Dose: 1,000 mls/hr Documented By: RB Sodium Chloride (Normal Saline 0.9%) 1,000 mls @ 125 mls/hr IV CONT [facility] [place] Last Infusion: 04/02/22 14:00 Dose: 0 mls/hr Documented By: Admin: 04/02/22 04:00 Dose: 125 mls/hr Documented By: GAYLA Lisinopril (Lisinopril 10 Mg Tablet) 30 mg PO DAILY [facility] [place] Last Admin: 04/05/22 08:47 Dose: 30 mg Documented By: Admin: 04/04/22 08:38 Dose: 30 mg Documented By: Admin: 04/03/22 09:03 Dose: 30 mg Documented By: Admin: 04/02/22 08:40 Dose: 30 mg Documented By: POOJA Lorazepam (Lorazepam 0.5 Mg Tablet) 0.5 mg PO BEDTIME PRN PRN Reason: Sleep Last Admin: 04/04/22 19:51 Dose: 0.5 mg Documented By: Admin: 04/03/22 18:36 Dose: 0.5 mg Documented By: Admin: 04/03/22 00:07 Dose: 0.5 mg Documented By: Lorazepam (Lorazepam 0.5 Mg Tablet) 0.5 mg PO Q4HR PRN PRN Reason: Anxiety Last Admin: 04/04/22 17:32 Dose: 0.5 mg Documented By: Admin: 04/03/22 23:51 Dose: 0.5 mg Documented By: Melatonin (Melatonin 3 Mg Tablet) 3 mg PO BEDTIME MADALYN Last Admin: 04/04/22 19:51 Dose: 3 mg Documented By: Admin: 04/03/22 20:57 Dose: 3 mg Documented By: Admin: 04/02/22 20:10 Dose: 3 mg Documented By: Naloxone HCl (Naloxone 0.4 Mg/Ml Vial) 0.2 mg IV Q2MIN PRN PRN Reason: Opiate Reversal Ondansetron HCl (Ondansetron 4 Mg/2 Ml Inj) 4 mg IV Q6HR PRN PRN Reason: Nausea And Vomiting Pantoprazole Sodium (Pantoprazole Dr 20 Mg Tablet) 20 mg PO 0600 [facility] [place] Last Admin: 04/05/22 06:16 Dose: Not Given Documented By: Admin: 04/04/22 05:41 Dose: Not Given Documented By: Admin: 04/03/22 06:06 Dose: Not Given Documented By: Admin: 04/02/22 05:05 Dose: 20 mg Documented By: AM Polyethylene Glycol (Polyethylene Glycol 3350 17 Gm Powd.Pack) 17 gm PO DAILY [facility] [place] Last Admin: 04/05/22 08:47 Dose: 17 gm Documented By: Admin: 04/04/22 19:50 Dose: 17 gm Documented By: Admin: 04/04/22 08:38 Dose: 17 gm Documented By: Admin: 04/03/22 20:57 Dose: 17 gm Documented By: Prednisone (Prednisone 5 Mg Tablet) 10 mg PO DAILY [facility] [place] Last Admin: 04/03/22 09:03 Dose: 10 mg Documented By: Admin: 04/02/22 08:40 Dose: 10 mg Documented By: POOJA Prednisone (Prednisone 5 Mg Tablet) 15 mg PO DAILY [facility] [place] Last Admin: 04/05/22 08:48 Dose: 15 mg Documented By: Admin: 04/04/22 08:38 Dose: 15 mg Documented By: JEREMY Vital Signs Vital signs: Vital Signs - 8 hr 04/02/22 00:00 04/02/22 00:00 04/02/22 00:30 Pulse Rate 95 H Respiratory Rate 20 Blood Pressure 142/78 H 142/84 H Pulse Oximetry 98 Oxygen Delivery Method Room Air 04/02/22 00:30 04/02/22 01:00 04/02/22 01:00 Pulse Rate 97 H Respiratory Rate 13 24 Blood Pressure 179/116 H Pulse Oximetry 98 96 Oxygen Delivery Method Room Air Room Air 04/02/22 01:01 04/02/22 01:01 04/02/22 01:30 Pulse Rate 90 86 Respiratory Rate 20 14 Blood Pressure 164/80 H Pulse Oximetry 97 97 Oxygen Delivery Method Room Air Room Air 04/02/22 02:00 04/02/22 02:30 Pulse Rate 75 79 Respiratory Rate 13 17 Blood Pressure Pulse Oximetry 97 97 Oxygen Delivery Method Room Air Room Air <Jovon Herr MD - Last Filed: 04/02/22 06:43> Course Course Narrative: April 01, 2022 at 6:[address] Banda, patient will likely need admission, not safe for discharge home again as patient was just discharged from [facility], patient acute renal injury. Will need likely rehydration, likely prerenal source. CT imaging for trauma is cleared. Rehydration has been started. Orders Ordered: Discontinued Medications Acetaminophen (Acetaminophen 325 Mg Tablet) 650 mg PO Q6H PRN PRN Reason: Fever/Mild Pain (1-3) Sodium Chloride (Normal Saline 0.9%) 1,000 mls @ 150 mls/hr IV CONT MADALYN Stop: 04/02/22 03:06 Last Infusion: 04/02/22 04:00 Dose: 0 mls/hr Documented By: Admin: 04/02/22 01:30 Dose: 150 mls/hr Documented By: Infusion: 04/02/22 01:04 Dose: 150 mls/hr Documented By: Infusion: 04/01/22 19:47 Dose: 150 mls/hr Documented By: Infusion: 04/01/22 18:46 Dose: 0 mls/hr Documented By: Admin: 04/01/22 17:23 Dose: 150 mls/hr Documented By: RB Sodium Chloride (Normal Saline 0.9%) 1,000 mls @ 1,000 mls/hr IV BOLUS ONE Stop: 04/01/22 18:41 Last Infusion: 04/01/22 19:47 Dose: 0 mls/hr Documented By: Admin: 04/01/22 18:48 Dose: 1,000 mls/hr Documented By: RB Sodium Chloride (Normal Saline 0.9%) 1,000 mls @ 125 mls/hr IV CONT MADALYN Last Infusion: 04/02/22 14:00 Dose: 0 mls/hr Documented By: Admin: 04/02/22 04:00 Dose: 125 mls/hr Documented By: GAYLA Lisinopril (Lisinopril 10 Mg Tablet) 30 mg PO DAILY MADALYN Last Admin: 04/05/22 08:47 Dose: 30 mg Documented By: Admin: 04/04/22 08:38 Dose: 30 mg Documented By: Admin: 04/03/22 09:03 Dose: 30 mg Documented By: Admin: 04/02/22 08:40 Dose: 30 mg Documented By: POOJA Lorazepam (Lorazepam 0.5 Mg Tablet) 0.5 mg PO BEDTIME PRN PRN Reason: Sleep Last Admin: 04/04/22 19:51 Dose: 0.5 mg Documented By: Admin: 04/03/22 18:36 Dose: 0.5 mg Documented By: Admin: 04/03/22 00:07 Dose: 0.5 mg Documented By: Lorazepam (Lorazepam 0.5 Mg Tablet) 0.5 mg PO Q4HR PRN PRN Reason: Anxiety Last Admin: 04/04/22 17:32 Dose: 0.5 mg Documented By: Admin: 04/03/22 23:51 Dose: 0.5 mg Documented By: Melatonin (Melatonin 3 Mg Tablet) 3 mg PO BEDTIME [facility] [place] Last Admin: 04/04/22 19:51 Dose: 3 mg Documented By: Admin: 04/03/22 20:57 Dose: 3 mg Documented By: Admin: 04/02/22 20:10 Dose: 3 mg Documented By: Naloxone HCl (Naloxone 0.4 Mg/Ml Vial) 0.2 mg IV Q2MIN PRN PRN Reason: Opiate Reversal Ondansetron HCl (Ondansetron 4 Mg/2 Ml Inj) 4 mg IV Q6HR PRN PRN Reason: Nausea And Vomiting Pantoprazole Sodium (Pantoprazole Dr 20 Mg Tablet) 20 mg PO 0600 [facility] [place] Last Admin: 04/05/22 06:16 Dose: Not Given Documented By: Admin: 04/04/22 05:41 Dose: Not Given Documented By: Admin: 04/03/22 06:06 Dose: Not Given Documented By: Admin: 04/02/22 05:05 Dose: 20 mg Documented By: AM Polyethylene Glycol (Polyethylene Glycol 3350 17 Gm Powd.Pack) 17 gm PO DAILY [facility] [place] Last Admin: 04/05/22 08:47 Dose: 17 gm Documented By: Admin: 04/04/22 19:50 Dose: 17 gm Documented By: Admin: 04/04/22 08:38 Dose: 17 gm Documented By: Admin: 04/03/22 20:57 Dose: 17 gm Documented By: Prednisone (Prednisone 5 Mg Tablet) 10 mg PO DAILY [facility] [place] Last Admin: 04/03/22 09:03 Dose: 10 mg Documented By: Admin: 04/02/22 08:40 Dose: 10 mg Documented By: POOJA Prednisone (Prednisone 5 Mg Tablet) 15 mg PO DAILY [facility] [place] Last Admin: 04/05/22 08:48 Dose: 15 mg Documented By: Admin: 04/04/22 08:38 Dose: 15 mg Documented By: JEREMY Vital Signs Vital signs: Vital Signs - 8 hr 04/02/22 00:00 04/02/22 00:00 04/02/22 00:30 Pulse Rate 95 H Respiratory Rate 20 Blood Pressure 142/78 H 142/84 H Pulse Oximetry 98 Oxygen Delivery Method Room Air 04/02/22 00:30 04/02/22 01:00 04/02/22 01:00 Pulse Rate 97 H Respiratory Rate 13 24 Blood Pressure 179/116 H Pulse Oximetry 98 96 Oxygen Delivery Method Room Air Room Air 04/02/22 01:01 04/02/22 01:01 04/02/22 01:30 Pulse Rate 90 86 Respiratory Rate 20 14 Blood Pressure 164/80 H Pulse Oximetry 97 97 Oxygen Delivery Method Room Air Room Air 04/02/22 02:00 04/02/22 02:30 Pulse Rate 75 79 Respiratory Rate 13 17 Blood Pressure Pulse Oximetry 97 97 Oxygen Delivery Method Room Air Room Air <Nehemiah Medina, DO - Last Filed: 04/06/22 01:58> Orders Ordered: Discontinued Medications Acetaminophen (Acetaminophen 325 Mg Tablet) 650 mg PO Q6H PRN PRN Reason: Fever/Mild Pain (1-3) Sodium Chloride (Normal Saline 0.9%) 1,000 mls @ 150 mls/hr IV CONT [facility] [place] Stop: 04/02/22 03:06 Last Infusion: 04/02/22 04:00 Dose: 0 mls/hr Documented By: Admin: 04/02/22 01:30 Dose: 150 mls/hr Documented By: Infusion: 04/02/22 01:04 Dose: 150 mls/hr Documented By: Infusion: 04/01/22 19:47 Dose: 150 mls/hr Documented By: Infusion: 04/01/22 18:46 Dose: 0 mls/hr Documented By: Admin: 04/01/22 17:23 Dose: 150 mls/hr Documented By: RB Sodium Chloride (Normal Saline 0.9%) 1,000 mls @ 1,000 mls/hr IV BOLUS ONE Stop: 04/01/22 18:41 Last Infusion: 04/01/22 19:47 Dose: 0 mls/hr Documented By: Admin: 04/01/22 18:48 Dose: 1,000 mls/hr Documented By: RB Sodium Chloride (Normal Saline 0.9%) 1,000 mls @ 125 mls/hr IV CONT MADALYN Last Infusion: 04/02/22 14:00 Dose: 0 mls/hr Documented By: Admin: 04/02/22 04:00 Dose: 125 mls/hr Documented By: GAYLA Lisinopril (Lisinopril 10 Mg Tablet) 30 mg PO DAILY [facility] [place] Last Admin: 04/05/22 08:47 Dose: 30 mg Documented By: Admin: 04/04/22 08:38 Dose: 30 mg Documented By: Admin: 04/03/22 09:03 Dose: 30 mg Documented By: Admin: 04/02/22 08:40 Dose: 30 mg Documented By: POOJA Lorazepam (Lorazepam 0.5 Mg Tablet) 0.5 mg PO BEDTIME PRN PRN Reason: Sleep Last Admin: 04/04/22 19:51 Dose: 0.5 mg Documented By: Admin: 04/03/22 18:36 Dose: 0.5 mg Documented By: Admin: 04/03/22 00:07 Dose: 0.5 mg Documented By: Lorazepam (Lorazepam 0.5 Mg Tablet) 0.5 mg PO Q4HR PRN PRN Reason: Anxiety Last Admin: 04/04/22 17:32 Dose: 0.5 mg Documented By: Admin: 04/03/22 23:51 Dose: 0.5 mg Documented By: Melatonin (Melatonin 3 Mg Tablet) 3 mg PO BEDTIME MADALYN Last Admin: 04/04/22 19:51 Dose: 3 mg Documented By: Admin: 04/03/22 20:57 Dose: 3 mg Documented By: Admin: 04/02/22 20:10 Dose: 3 mg Documented By: Naloxone HCl (Naloxone 0.4 Mg/Ml Vial) 0.2 mg IV Q2MIN PRN PRN Reason: Opiate Reversal Ondansetron HCl (Ondansetron 4 Mg/2 Ml Inj) 4 mg IV Q6HR PRN PRN Reason: Nausea And Vomiting Pantoprazole Sodium (Pantoprazole Dr 20 Mg Tablet) 20 mg PO 0600 [facility] [place] Last Admin: 04/05/22 06:16 Dose: Not Given Documented By: Admin: 04/04/22 05:41 Dose: Not Given Documented By: Admin: 04/03/22 06:06 Dose: Not Given Documented By: Admin: 04/02/22 05:05 Dose: 20 mg Documented By: AM Polyethylene Glycol (Polyethylene Glycol 3350 17 Gm Powd.Pack) 17 gm PO DAILY [facility] [place] Last Admin: 04/05/22 08:47 Dose: 17 gm Documented By: Admin: 04/04/22 19:50 Dose: 17 gm Documented By: Admin: 04/04/22 08:38 Dose: 17 gm Documented By: Admin: 04/03/22 20:57 Dose: 17 gm Documented By: Prednisone (Prednisone 5 Mg Tablet) 10 mg PO DAILY [facility] [place] Last Admin: 04/03/22 09:03 Dose: 10 mg Documented By: Admin: 04/02/22 08:40 Dose: 10 mg Documented By: POOJA Prednisone (Prednisone 5 Mg Tablet) 15 mg PO DAILY [facility] [place] Last Admin: 04/05/22 08:48 Dose: 15 mg Documented By: Admin: 04/04/22 08:38 Dose: 15 mg Documented By: JEREMY Vital Signs Vital signs: Vital Signs - 8 hr 04/02/22 00:00 04/02/22 00:00 04/02/22 00:30 Pulse Rate 95 H Respiratory Rate 20 Blood Pressure 142/78 H 142/84 H Pulse Oximetry 98 Oxygen Delivery Method Room Air 04/02/22 00:30 04/02/22 01:00 04/02/22 01:00 Pulse Rate 97 H Respiratory Rate 13 24 Blood Pressure 179/116 H Pulse Oximetry 98 96 Oxygen Delivery Method Room Air Room Air 04/02/22 01:01 04/02/22 01:01 04/02/22 01:30 Pulse Rate 90 86 Respiratory Rate 20 14 Blood Pressure 164/80 H Pulse Oximetry 97 97 Oxygen Delivery Method Room Air Room Air 04/02/22 02:00 04/02/22 02:30 Pulse Rate 75 79 Respiratory Rate 13 17 Blood Pressure Pulse Oximetry 97 97 Oxygen Delivery Method Room Air Room Air MDM - Altered Mental Status <Gil Solo, - Last Filed: 04/02/22 07:34> Lab Data 04/01/22 16:38 04/01/22 16:38 Labs: Lab Results 04/01/22 04/01/22 04/01/22 Range/Units 08:35 16:38 16:38 WBC 17.2 H (4.5-11.0) X10^3/uL RBC 4.73 (4.0-5.2) X10^6/uL Hgb 14.9 (12.0-16.0) g/dL Hct 42.9 (36-46) % MCV 90.7 (80-100) fL MCH 31.4 (26-34) PG MCHC 34.6 (30-36) % RDW 16.9 H (11.6-14.8) % Plt Count 64 L (150-400) X10^3/uL Neut % (Auto) 86.9 H D (50-75) % Lymph % (Auto) 7.9 L (25-40) % [place] % (Auto) 4.4 (3-14) % Eos % (Auto) 0.1 L (2-4) % Baso % (Auto) 0.7 (0-2) % Neut # (Auto) 45422 H (2145-3744) /uL Lymph # (Auto) 1400 (7394-5157) /uL [place] # (Auto) 800 (0-900) /uL Eos # (Auto) 0 (0-450) /uL Baso # (Auto) 100 (0-100) /uL Sodium 131 L (137-145) mmol/L Potassium 4.6 (3.4-5.1) mmol/L Chloride 91 L (98-107) mmol/L Carbon Dioxide 27 (22-32) mmol/L BUN 45 H (7-17) mg/dL Creatinine 3.07 H (0.52-1.04) mg/dL Estimated GFR 15 L (>60) mL/min BUN/Creatinine Ratio 14.7 (6-22) Glucose 94 (80-110) mg/dL Lactate (0.7-2.1) mmol/L Calcium 10.8 H (8.4-10.2) mg/dL Total Bilirubin 1.1 (0.2-1.3) mg/dL AST 31 (14-36) IU/L ALT 24 (<35) IU/L Alkaline Phosphatase 67 (38-126) U/L Total Creatine Kinase 37 (30-135) U/L CK-MB (CK-2) TNP CK-MB (CK-2) Rel Index TNP Troponin I 0.119 H (0.01-0.034) ng/mL NT-Pro-B Natriuret Pep (<450) pg/mL Total Protein 8.4 H (6.3-8.2) g/dL Albumin 4.7 (3.5-5.0) g/dL Globulin 3.7 (1.7-4.1) g/dL Albumin/Globulin Ratio 1.3 (1.0-2.8) Lipase 109 (23-300) U/L Procalcitonin 0.21 (<0.5) ng/mL Urine Color Urine Appearance Urine pH (4.5-8.0) Ur Specific [place] (1.000-1.035) Urine Protein (Negative) Urine Glucose (UA) (Negative) g/dL Urine Ketones (NEGATIVE) Urine Occult Blood (Negative) Urine Nitrate (Negative) Urine Bilirubin (NEGATIVE) Urine Urobilinogen (0.2) E.U./dL Ur Leukocyte Esterase (NEGATIVE) Urine RBC (0-5/HPF) Urine WBC (0-5/HPF) Urine Bacteria (None) Hyaline Casts (None) Granular Casts (None) Urine Mucus (Negative) Ur Random Sodium (30-90) mmol/L Urine Creatinine mg/dL SARS-CoV-2 (PCR) (Negative) Blood Type O Negative 04/01/22 04/01/22 04/01/22 Range/Units 16:38 16:38 19:26 WBC (4.5-11.0) X10^3/uL RBC (4.0-5.2) X10^6/uL Hgb (12.0-16.0) g/dL Hct (36-46) % MCV (80-100) fL MCH (26-34) PG MCHC (30-36) % RDW (11.6-14.8) % Plt Count (150-400) X10^3/uL Neut % (Auto) (50-75) % Lymph % (Auto) (25-40) % [place] % (Auto) (3-14) % Eos % (Auto) (2-4) % Baso % (Auto) (0-2) % Neut # (Auto) (9561-1397) /uL Lymph # (Auto) (8935-5910) /uL [place] # (Auto) (0-900) /uL Eos # (Auto) (0-450) /uL Baso # (Auto) (0-100) /uL Sodium (137-145) mmol/L Potassium (3.4-5.1) mmol/L Chloride (98-107) mmol/L Carbon Dioxide (22-32) mmol/L BUN (7-17) mg/dL Creatinine (0.52-1.04) mg/dL Estimated GFR (>60) mL/min BUN/Creatinine Ratio (6-22) Glucose (80-110) mg/dL Lactate 1.9 (0.7-2.1) mmol/L Calcium (8.4-10.2) mg/dL Total Bilirubin (0.2-1.3) mg/dL AST (14-36) IU/L ALT (<35) IU/L Alkaline Phosphatase (38-126) U/L Total Creatine Kinase (30-135) U/L CK-MB (CK-2) CK-MB (CK-2) Rel Index Troponin I (0.01-0.034) ng/mL NT-Pro-B Natriuret Pep 863 H (<450) pg/mL Total Protein (6.3-8.2) g/dL Albumin (3.5-5.0) g/dL Globulin (1.7-4.1) g/dL Albumin/Globulin Ratio (1.0-2.8) Lipase (23-300) U/L Procalcitonin (<0.5) ng/mL Urine Color Urine Appearance Urine pH (4.5-8.0) Ur Specific [place] (1.000-1.035) Urine Protein (Negative) Urine Glucose (UA) (Negative) g/dL Urine Ketones (NEGATIVE) Urine Occult Blood (Negative) Urine Nitrate (Negative) Urine Bilirubin (NEGATIVE) Urine Urobilinogen (0.2) E.U./dL Ur Leukocyte Esterase (NEGATIVE) Urine RBC (0-5/HPF) Urine WBC (0-5/HPF) Urine Bacteria (None) Hyaline Casts (None) Granular Casts (None) Urine Mucus (Negative) Ur Random Sodium (30-90) mmol/L Urine Creatinine mg/dL SARS-CoV-2 (PCR) Negative (Negative) Blood Type 04/01/22 04/01/22 04/02/22 Range/Units 20:29 20:29 01:50 WBC (4.5-11.0) X10^3/uL RBC (4.0-5.2) X10^6/uL Hgb (12.0-16.0) g/dL Hct (36-46) % MCV (80-100) fL MCH (26-34) PG MCHC (30-36) % RDW (11.6-14.8) % Plt Count (150-400) X10^3/uL Neut % (Auto) (50-75) % Lymph % (Auto) (25-40) % [place] % (Auto) (3-14) % Eos % (Auto) (2-4) % Baso % (Auto) (0-2) % Neut # (Auto) (5454-3939) /uL Lymph # (Auto) (2073-2257) /uL [place] # (Auto) (0-900) /uL Eos # (Auto) (0-450) /uL Baso # (Auto) (0-100) /uL Sodium (137-145) mmol/L Potassium (3.4-5.1) mmol/L Chloride (98-107) mmol/L Carbon Dioxide (22-32) mmol/L BUN (7-17) mg/dL Creatinine (0.52-1.04) mg/dL Estimated GFR (>60) mL/min BUN/Creatinine Ratio (6-22) Glucose (80-110) mg/dL Lactate (0.7-2.1) mmol/L Calcium (8.4-10.2) mg/dL Total Bilirubin (0.2-1.3) mg/dL AST (14-36) IU/L ALT (<35) IU/L Alkaline Phosphatase (38-126) U/L Total Creatine Kinase 37 (30-135) U/L CK-MB (CK-2) TNP CK-MB (CK-2) Rel Index TNP Troponin I 0.059 H (0.01-0.034) ng/mL NT-Pro-B Natriuret Pep (<450) pg/mL Total Protein (6.3-8.2) g/dL Albumin (3.5-5.0) g/dL Globulin (1.7-4.1) g/dL Albumin/Globulin Ratio (1.0-2.8) Lipase (23-300) U/L Procalcitonin (<0.5) ng/mL Urine Color Yellow Urine Appearance Clear Urine pH 5.5 (4.5-8.0) Ur Specific [place] 1.010 (1.000-1.035) Urine Protein Negative (Negative) Urine Glucose (UA) Negative (Negative) g/dL Urine Ketones Negative (NEGATIVE) Urine Occult Blood Trace-intact (Negative) Urine Nitrate Negative (Negative) Urine Bilirubin Negative (NEGATIVE) Urine Urobilinogen 0.2 (0.2) E.U./dL Ur Leukocyte Esterase Negative (NEGATIVE) Urine RBC None seen (0-5/HPF) Urine WBC None seen (0-5/HPF) Urine Bacteria None seen (None) Hyaline Casts 5-10/lpf (None) Granular Casts 0-1/lpf (None) Urine Mucus 2+ H (Negative) Ur Random Sodium 43 (30-90) mmol/L Urine Creatinine 39.7 mg/dL SARS-CoV-2 (PCR) (Negative) Blood Type 04/02/22 04/02/22 Range/Units 01:53 02:36 WBC 12.9 H (4.5-11.0) X10^3/uL RBC 3.83 L (4.0-5.2) X10^6/uL Hgb 12.1 (12.0-16.0) g/dL Hct 34.6 L (36-46) % MCV 90.2 (80-100) fL MCH 31.5 (26-34) PG MCHC 34.9 (30-36) % RDW 16.9 H (11.6-14.8) % Plt Count 49 L (150-400) X10^3/uL Neut % (Auto) 75.3 H (50-75) % Lymph % (Auto) 16.6 L (25-40) % [place] % (Auto) 6.9 (3-14) % Eos % (Auto) 0.3 L (2-4) % Baso % (Auto) 0.9 (0-2) % Neut # (Auto) 9700 H (7412-3410) /uL Lymph # (Auto) 2100 (3694-7819) /uL [place] # (Auto) 900 (0-900) /uL Eos # (Auto) 0 (0-450) /uL Baso # (Auto) 100 (0-100) /uL Sodium 132 L (137-145) mmol/L Potassium 3.9 (3.4-5.1) mmol/L Chloride 103 (98-107) mmol/L Carbon Dioxide 24 (22-32) mmol/L BUN 33 H (7-17) mg/dL Creatinine 1.55 H (0.52-1.04) mg/dL Estimated GFR 33 L (>60) mL/min BUN/Creatinine Ratio 21.3 (6-22) Glucose 86 (80-110) mg/dL Lactate (0.7-2.1) mmol/L Calcium 8.4 (8.4-10.2) mg/dL Total Bilirubin (0.2-1.3) mg/dL AST (14-36) IU/L ALT (<35) IU/L Alkaline Phosphatase (38-126) U/L Total Creatine Kinase (30-135) U/L CK-MB (CK-2) CK-MB (CK-2) Rel Index Troponin I (0.01-0.034) ng/mL NT-Pro-B Natriuret Pep (<450) pg/mL Total Protein (6.3-8.2) g/dL Albumin (3.5-5.0) g/dL Globulin (1.7-4.1) g/dL Albumin/Globulin Ratio (1.0-2.8) Lipase (23-300) U/L Procalcitonin (<0.5) ng/mL Urine Color Urine Appearance Urine pH (4.5-8.0) Ur Specific [place] (1.000-1.035) Urine Protein (Negative) Urine Glucose (UA) (Negative) g/dL Urine Ketones (NEGATIVE) Urine Occult Blood (Negative) Urine Nitrate (Negative) Urine Bilirubin (NEGATIVE) Urine Urobilinogen (0.2) E.U./dL Ur Leukocyte Esterase (NEGATIVE) Urine RBC (0-5/HPF) Urine WBC (0-5/HPF) Urine Bacteria (None) Hyaline Casts (None) Granular Casts (None) Urine Mucus (Negative) Ur Random Sodium (30-90) mmol/L Urine Creatinine mg/dL SARS-CoV-2 (PCR) (Negative) Blood Type <Jovon Herr MD - Last Filed: 04/02/22 06:43> Lab Data Labs: Lab Results 04/01/22 04/01/22 04/01/22 Range/Units 08:35 16:38 16:38 WBC 17.2 H (4.5-11.0) X10^3/uL RBC 4.73 (4.0-5.2) X10^6/uL Hgb 14.9 (12.0-16.0) g/dL Hct 42.9 (36-46) % MCV 90.7 (80-100) fL MCH 31.4 (26-34) PG MCHC 34.6 (30-36) % RDW 16.9 H (11.6-14.8) % Plt Count 64 L (150-400) X10^3/uL Neut % (Auto) 86.9 H D (50-75) % Lymph % (Auto) 7.9 L (25-40) % [place] % (Auto) 4.4 (3-14) % Eos % (Auto) 0.1 L (2-4) % Baso % (Auto) 0.7 (0-2) % Neut # (Auto) 55201 H (0372-5933) /uL Lymph # (Auto) 1400 (9944-1721) /uL [place] # (Auto) 800 (0-900) /uL Eos # (Auto) 0 (0-450) /uL Baso # (Auto) 100 (0-100) /uL Sodium 131 L (137-145) mmol/L Potassium 4.6 (3.4-5.1) mmol/L Chloride 91 L (98-107) mmol/L Carbon Dioxide 27 (22-32) mmol/L BUN 45 H (7-17) mg/dL Creatinine 3.07 H (0.52-1.04) mg/dL Estimated GFR 15 L (>60) mL/min BUN/Creatinine Ratio 14.7 (6-22) Glucose 94 (80-110) mg/dL Lactate (0.7-2.1) mmol/L Calcium 10.8 H (8.4-10.2) mg/dL Total Bilirubin 1.1 (0.2-1.3) mg/dL AST 31 (14-36) IU/L ALT 24 (<35) IU/L Alkaline Phosphatase 67 (38-126) U/L Total Creatine Kinase 37 (30-135) U/L CK-MB (CK-2) TNP CK-MB (CK-2) Rel Index TNP Troponin I 0.119 H (0.01-0.034) ng/mL NT-Pro-B Natriuret Pep (<450) pg/mL Total Protein 8.4 H (6.3-8.2) g/dL Albumin 4.7 (3.5-5.0) g/dL Globulin 3.7 (1.7-4.1) g/dL Albumin/Globulin Ratio 1.3 (1.0-2.8) Lipase 109 (23-300) U/L Procalcitonin 0.21 (<0.5) ng/mL Urine Color Urine Appearance Urine pH (4.5-8.0) Ur Specific [place] (1.000-1.035) Urine Protein (Negative) Urine Glucose (UA) (Negative) g/dL Urine Ketones (NEGATIVE) Urine Occult Blood (Negative) Urine Nitrate (Negative) Urine Bilirubin (NEGATIVE) Urine Urobilinogen (0.2) E.U./dL Ur Leukocyte Esterase (NEGATIVE) Urine RBC (0-5/HPF) Urine WBC (0-5/HPF) Urine Bacteria (None) Hyaline Casts (None) Granular Casts (None) Urine Mucus (Negative) Ur Random Sodium (30-90) mmol/L Urine Creatinine mg/dL SARS-CoV-2 (PCR) (Negative) Blood Type O Negative 04/01/22 04/01/22 04/01/22 Range/Units 16:38 16:38 19:26 WBC (4.5-11.0) X10^3/uL RBC (4.0-5.2) X10^6/uL Hgb (12.0-16.0) g/dL Hct (36-46) % MCV (80-100) fL MCH (26-34) PG MCHC (30-36) % RDW (11.6-14.8) % Plt Count (150-400) X10^3/uL Neut % (Auto) (50-75) % Lymph % (Auto) (25-40) % [place] % (Auto) (3-14) % Eos % (Auto) (2-4) % Baso % (Auto) (0-2) % Neut # (Auto) (2278-0680) /uL Lymph # (Auto) (2410-7259) /uL [place] # (Auto) (0-900) /uL Eos # (Auto) (0-450) /uL Baso # (Auto) (0-100) /uL Sodium (137-145) mmol/L Potassium (3.4-5.1) mmol/L Chloride (98-107) mmol/L Carbon Dioxide (22-32) mmol/L BUN (7-17) mg/dL Creatinine (0.52-1.04) mg/dL Estimated GFR (>60) mL/min BUN/Creatinine Ratio (6-22) Glucose (80-110) mg/dL Lactate 1.9 (0.7-2.1) mmol/L Calcium (8.4-10.2) mg/dL Total Bilirubin (0.2-1.3) mg/dL AST (14-36) IU/L ALT (<35) IU/L Alkaline Phosphatase (38-126) U/L Total Creatine Kinase (30-135) U/L CK-MB (CK-2) CK-MB (CK-2) Rel Index Troponin I (0.01-0.034) ng/mL NT-Pro-B Natriuret Pep 863 H (<450) pg/mL Total Protein (6.3-8.2) g/dL Albumin (3.5-5.0) g/dL Globulin (1.7-4.1) g/dL Albumin/Globulin Ratio (1.0-2.8) Lipase (23-300) U/L Procalcitonin (<0.5) ng/mL Urine Color Urine Appearance Urine pH (4.5-8.0) Ur Specific [place] (1.000-1.035) Urine Protein (Negative) Urine Glucose (UA) (Negative) g/dL Urine Ketones (NEGATIVE) Urine Occult Blood (Negative) Urine Nitrate (Negative) Urine Bilirubin (NEGATIVE) Urine Urobilinogen (0.2) E.U./dL Ur Leukocyte Esterase (NEGATIVE) Urine RBC (0-5/HPF) Urine WBC (0-5/HPF) Urine Bacteria (None) Hyaline Casts (None) Granular Casts (None) Urine Mucus (Negative) Ur Random Sodium (30-90) mmol/L Urine Creatinine mg/dL SARS-CoV-2 (PCR) Negative (Negative) Blood Type 04/01/22 04/01/22 04/02/22 Range/Units 20:29 20:29 01:50 WBC (4.5-11.0) X10^3/uL RBC (4.0-5.2) X10^6/uL Hgb (12.0-16.0) g/dL Hct (36-46) % MCV (80-100) fL MCH (26-34) PG MCHC (30-36) % RDW (11.6-14.8) % Plt Count (150-400) X10^3/uL Neut % (Auto) (50-75) % Lymph % (Auto) (25-40) % [place] % (Auto) (3-14) % Eos % (Auto) (2-4) % Baso % (Auto) (0-2) % Neut # (Auto) (2005-8528) /uL Lymph # (Auto) (2320-9138) /uL [place] # (Auto) (0-900) /uL Eos # (Auto) (0-450) /uL Baso # (Auto) (0-100) /uL Sodium (137-145) mmol/L Potassium (3.4-5.1) mmol/L Chloride (98-107) mmol/L Carbon Dioxide (22-32) mmol/L BUN (7-17) mg/dL Creatinine (0.52-1.04) mg/dL Estimated GFR (>60) mL/min BUN/Creatinine Ratio (6-22) Glucose (80-110) mg/dL Lactate (0.7-2.1) mmol/L Calcium (8.4-10.2) mg/dL Total Bilirubin (0.2-1.3) mg/dL AST (14-36) IU/L ALT (<35) IU/L Alkaline Phosphatase (38-126) U/L Total Creatine Kinase 37 (30-135) U/L CK-MB (CK-2) TNP CK-MB (CK-2) Rel Index TNP Troponin I 0.059 H (0.01-0.034) ng/mL NT-Pro-B Natriuret Pep (<450) pg/mL Total Protein (6.3-8.2) g/dL Albumin (3.5-5.0) g/dL Globulin (1.7-4.1) g/dL Albumin/Globulin Ratio (1.0-2.8) Lipase (23-300) U/L Procalcitonin (<0.5) ng/mL Urine Color Yellow Urine Appearance Clear Urine pH 5.5 (4.5-8.0) Ur Specific [place] 1.010 (1.000-1.035) Urine Protein Negative (Negative) Urine Glucose (UA) Negative (Negative) g/dL Urine Ketones Negative (NEGATIVE) Urine Occult Blood Trace-intact (Negative) Urine Nitrate Negative (Negative) Urine Bilirubin Negative (NEGATIVE) Urine Urobilinogen 0.2 (0.2) E.U./dL Ur Leukocyte Esterase Negative (NEGATIVE) Urine RBC None seen (0-5/HPF) Urine WBC None seen (0-5/HPF) Urine Bacteria None seen (None) Hyaline Casts 5-10/lpf (None) Granular Casts 0-1/lpf (None) Urine Mucus 2+ H (Negative) Ur Random Sodium 43 (30-90) mmol/L Urine Creatinine 39.7 mg/dL SARS-CoV-2 (PCR) (Negative) Blood Type 04/02/22 04/02/22 Range/Units 01:53 02:36 WBC 12.9 H (4.5-11.0) X10^3/uL RBC 3.83 L (4.0-5.2) X10^6/uL Hgb 12.1 (12.0-16.0) g/dL Hct 34.6 L (36-46) % MCV 90.2 (80-100) fL MCH 31.5 (26-34) PG MCHC 34.9 (30-36) % RDW 16.9 H (11.6-14.8) % Plt Count 49 L (150-400) X10^3/uL Neut % (Auto) 75.3 H (50-75) % Lymph % (Auto) 16.6 L (25-40) % [place] % (Auto) 6.9 (3-14) % Eos % (Auto) 0.3 L (2-4) % Baso % (Auto) 0.9 (0-2) % Neut # (Auto) 9700 H (1488-5145) /uL Lymph # (Auto) 2100 (0954-7820) /uL [place] # (Auto) 900 (0-900) /uL Eos # (Auto) 0 (0-450) /uL Baso # (Auto) 100 (0-100) /uL Sodium 132 L (137-145) mmol/L Potassium 3.9 (3.4-5.1) mmol/L Chloride 103 (98-107) mmol/L Carbon Dioxide 24 (22-32) mmol/L BUN 33 H (7-17) mg/dL Creatinine 1.55 H (0.52-1.04) mg/dL Estimated GFR 33 L (>60) mL/min BUN/Creatinine Ratio 21.3 (6-22) Glucose 86 (80-110) mg/dL Lactate (0.7-2.1) mmol/L Calcium 8.4 (8.4-10.2) mg/dL Total Bilirubin (0.2-1.3) mg/dL AST (14-36) IU/L ALT (<35) IU/L Alkaline Phosphatase (38-126) U/L Total Creatine Kinase (30-135) U/L CK-MB (CK-2) CK-MB (CK-2) Rel Index Troponin I (0.01-0.034) ng/mL NT-Pro-B Natriuret Pep (<450) pg/mL Total Protein (6.3-8.2) g/dL Albumin (3.5-5.0) g/dL Globulin (1.7-4.1) g/dL Albumin/Globulin Ratio (1.0-2.8) Lipase (23-300) U/L Procalcitonin (<0.5) ng/mL Urine Color Urine Appearance Urine pH (4.5-8.0) Ur Specific [place] (1.000-1.035) Urine Protein (Negative) Urine Glucose (UA) (Negative) g/dL Urine Ketones (NEGATIVE) Urine Occult Blood (Negative) Urine Nitrate (Negative) Urine Bilirubin (NEGATIVE) Urine Urobilinogen (0.2) E.U./dL Ur Leukocyte Esterase (NEGATIVE) Urine RBC (0-5/HPF) Urine WBC (0-5/HPF) Urine Bacteria (None) Hyaline Casts (None) Granular Casts (None) Urine Mucus (Negative) Ur Random Sodium (30-90) mmol/L Urine Creatinine mg/dL SARS-CoV-2 (PCR) (Negative) Blood Type MDM Narrative Medical decision making narrative: 81-year-old female nonsmoker with history of pulmonary embolism and infarction, chronic ITP, iron deficiency anemia, thrombocytopenia, recent hospitalization for hyponatremia, hallucinations and delusions. She had been admitted at [facility] for about 1 week and was discharged yesterday home. She apparently has been profoundly weak, perhaps even worse and had a fall yesterday but is confused about the details of this fall and it is actually unclear she did fall but is altered from her baseline without focal neurologic findings. She is had poor appetite. She denies any blurred vision or trouble with speech. She denies any fever or chills, chest pain or shortness of breath After history and exam CBC CMP urinalysis troponin EKG renal ultrasound ordered CT head CT cervical spine chest x-ray [facility] CC: Altered mental status Complicating co-morbidities: Recent admit for hyponatremia altered mental status at [facility] discharge yesterday. Data collected from: Patient and medical records faxed here. Medical records reviewed: Discharge summary from yesterday [facility] Differential considered: Includes but not limited to stroke/metabolic encephalopathy/kidney injury Exam documented above, pertinent findings include: Head nontender, patient did have fall during her admission to [facility], not during her admission but prior to her admission Lab Test results independently reviewed as above. Pertinent findings: Creatinine 1.02 yesterday at time of discharge from [facility]. Today is 3.0. WBCs 17.2 but has chronic leukocytosis sodium 131 potassium 4.6 BUN 45 creatinine 3.07 GFR 15 troponin 0.119 Independently reviewed EKG as above sinus tachycardia rate [address] elevation or depression Imaging studies independently reviewed: CT head CT cervical spine chest x-ray no acute process ultrasound renal no acute process Consultations: 2:00 a.m.. Cardiology did call back, there was a delay. 1.5 hours, had hard time getting cardiology to call back after paging and using answering service, s/w dr alcala, troponin likely renal related. Patient is asymptomatic no chest pain EKG reassuring. Did not proceed with non-STEMI protocol 2:27 a.m.. Spoke with hospitalist, Kary Renteria, she would like repeat CBC and renal function 2:45 a.m.. Spoke with hospitalist, Kary Renteria, she will admit patient. Renal flexion has improved. Creatinine 1.55 Treatments: Normal saline Re-evaluations: Patient denies ever having any chest pain during course of hospital stay at [facility] or currently now. Or yesterday. Discussion: Appropriate for admission. Troponin likely related to elevated creatinine. Patient denies any chest pain. EKG reassuring. Will need hydration and observation Diagnosis: Acute renal injury/metabolic encephalopathy <Nehemiah Medina, - Last Filed: 04/06/22 01:58> Lab Data Labs: Lab Results 04/01/22 04/01/22 04/01/22 Range/Units 08:35 16:38 16:38 WBC 17.2 H (4.5-11.0) X10^3/uL RBC 4.73 (4.0-5.2) X10^6/uL Hgb 14.9 (12.0-16.0) g/dL Hct 42.9 (36-46) % MCV 90.7 (80-100) fL MCH 31.4 (26-34) PG MCHC 34.6 (30-36) % RDW 16.9 H (11.6-14.8) % Plt Count 64 L (150-400) X10^3/uL Neut % (Auto) 86.9 H D (50-75) % Lymph % (Auto) 7.9 L (25-40) % [place] % (Auto) 4.4 (3-14) % Eos % (Auto) 0.1 L (2-4) % Baso % (Auto) 0.7 (0-2) % Neut # (Auto) 66498 H (4489-0767) /uL Lymph # (Auto) 1400 (1913-0096) /uL [place] # (Auto) 800 (0-900) /uL Eos # (Auto) 0 (0-450) /uL Baso # (Auto) 100 (0-100) /uL Sodium 131 L (137-145) mmol/L Potassium 4.6 (3.4-5.1) mmol/L Chloride 91 L (98-107) mmol/L Carbon Dioxide 27 (22-32) mmol/L BUN 45 H (7-17) mg/dL Creatinine 3.07 H (0.52-1.04) mg/dL Estimated GFR 15 L (>60) mL/min BUN/Creatinine Ratio 14.7 (6-22) Glucose 94 (80-110) mg/dL Lactate (0.7-2.1) mmol/L Calcium 10.8 H (8.4-10.2) mg/dL Total Bilirubin 1.1 (0.2-1.3) mg/dL AST 31 (14-36) IU/L ALT 24 (<35) IU/L Alkaline Phosphatase 67 (38-126) U/L Total Creatine Kinase 37 (30-135) U/L CK-MB (CK-2) TNP CK-MB (CK-2) Rel Index TNP Troponin I 0.119 H (0.01-0.034) ng/mL NT-Pro-B Natriuret Pep (<450) pg/mL Total Protein 8.4 H (6.3-8.2) g/dL Albumin 4.7 (3.5-5.0) g/dL Globulin 3.7 (1.7-4.1) g/dL Albumin/Globulin Ratio 1.3 (1.0-2.8) Lipase 109 (23-300) U/L Procalcitonin 0.21 (<0.5) ng/mL Urine Color Urine Appearance Urine pH (4.5-8.0) Ur Specific [place] (1.000-1.035) Urine Protein (Negative) Urine Glucose (UA) (Negative) g/dL Urine Ketones (NEGATIVE) Urine Occult Blood (Negative) Urine Nitrate (Negative) Urine Bilirubin (NEGATIVE) Urine Urobilinogen (0.2) E.U./dL Ur Leukocyte Esterase (NEGATIVE) Urine RBC (0-5/HPF) Urine WBC (0-5/HPF) Urine Bacteria (None) Hyaline Casts (None) Granular Casts (None) Urine Mucus (Negative) Ur Random Sodium (30-90) mmol/L Urine Creatinine mg/dL SARS-CoV-2 (PCR) (Negative) Blood Type O Negative 04/01/22 04/01/22 04/01/22 Range/Units 16:38 16:38 19:26 WBC (4.5-11.0) X10^3/uL RBC (4.0-5.2) X10^6/uL Hgb (12.0-16.0) g/dL Hct (36-46) % MCV (80-100) fL MCH (26-34) PG MCHC (30-36) % RDW (11.6-14.8) % Plt Count (150-400) X10^3/uL Neut % (Auto) (50-75) % Lymph % (Auto) (25-40) % [place] % (Auto) (3-14) % Eos % (Auto) (2-4) % Baso % (Auto) (0-2) % Neut # (Auto) (6536-2225) /uL Lymph # (Auto) (5176-3463) /uL [place] # (Auto) (0-900) /uL Eos # (Auto) (0-450) /uL Baso # (Auto) (0-100) /uL Sodium (137-145) mmol/L Potassium (3.4-5.1) mmol/L Chloride (98-107) mmol/L Carbon Dioxide (22-32) mmol/L BUN (7-17) mg/dL Creatinine (0.52-1.04) mg/dL Estimated GFR (>60) mL/min BUN/Creatinine Ratio (6-22) Glucose (80-110) mg/dL Lactate 1.9 (0.7-2.1) mmol/L Calcium (8.4-10.2) mg/dL Total Bilirubin (0.2-1.3) mg/dL AST (14-36) IU/L ALT (<35) IU/L Alkaline Phosphatase (38-126) U/L Total Creatine Kinase (30-135) U/L CK-MB (CK-2) CK-MB (CK-2) Rel Index Troponin I (0.01-0.034) ng/mL NT-Pro-B Natriuret Pep 863 H (<450) pg/mL Total Protein (6.3-8.2) g/dL Albumin (3.5-5.0) g/dL Globulin (1.7-4.1) g/dL Albumin/Globulin Ratio (1.0-2.8) Lipase (23-300) U/L Procalcitonin (<0.5) ng/mL Urine Color Urine Appearance Urine pH (4.5-8.0) Ur Specific [place] (1.000-1.035) Urine Protein (Negative) Urine Glucose (UA) (Negative) g/dL Urine Ketones (NEGATIVE) Urine Occult Blood (Negative) Urine Nitrate (Negative) Urine Bilirubin (NEGATIVE) Urine Urobilinogen (0.2) E.U./dL Ur Leukocyte Esterase (NEGATIVE) Urine RBC (0-5/HPF) Urine WBC (0-5/HPF) Urine Bacteria (None) Hyaline Casts (None) Granular Casts (None) Urine Mucus (Negative) Ur Random Sodium (30-90) mmol/L Urine Creatinine mg/dL SARS-CoV-2 (PCR) Negative (Negative) Blood Type 04/01/22 04/01/22 04/02/22 Range/Units 20:29 20:29 01:50 WBC (4.5-11.0) X10^3/uL RBC (4.0-5.2) X10^6/uL Hgb (12.0-16.0) g/dL Hct (36-46) % MCV (80-100) fL MCH (26-34) PG MCHC (30-36) % RDW (11.6-14.8) % Plt Count (150-400) X10^3/uL Neut % (Auto) (50-75) % Lymph % (Auto) (25-40) % [place] % (Auto) (3-14) % Eos % (Auto) (2-4) % Baso % (Auto) (0-2) % Neut # (Auto) (2117-3356) /uL Lymph # (Auto) (0727-2597) /uL [place] # (Auto) (0-900) /uL Eos # (Auto) (0-450) /uL Baso # (Auto) (0-100) /uL Sodium (137-145) mmol/L Potassium (3.4-5.1) mmol/L Chloride (98-107) mmol/L Carbon Dioxide (22-32) mmol/L BUN (7-17) mg/dL Creatinine (0.52-1.04) mg/dL Estimated GFR (>60) mL/min BUN/Creatinine Ratio (6-22) Glucose (80-110) mg/dL Lactate (0.7-2.1) mmol/L Calcium (8.4-10.2) mg/dL Total Bilirubin (0.2-1.3) mg/dL AST (14-36) IU/L ALT (<35) IU/L Alkaline Phosphatase (38-126) U/L Total Creatine Kinase 37 (30-135) U/L CK-MB (CK-2) TNP CK-MB (CK-2) Rel Index TNP Troponin I 0.059 H (0.01-0.034) ng/mL NT-Pro-B Natriuret Pep (<450) pg/mL Total Protein (6.3-8.2) g/dL Albumin (3.5-5.0) g/dL Globulin (1.7-4.1) g/dL Albumin/Globulin Ratio (1.0-2.8) Lipase (23-300) U/L Procalcitonin (<0.5) ng/mL Urine Color Yellow Urine Appearance Clear Urine pH 5.5 (4.5-8.0) Ur Specific [place] 1.010 (1.000-1.035) Urine Protein Negative (Negative) Urine Glucose (UA) Negative (Negative) g/dL Urine Ketones Negative (NEGATIVE) Urine Occult Blood Trace-intact (Negative) Urine Nitrate Negative (Negative) Urine Bilirubin Negative (NEGATIVE) Urine Urobilinogen 0.2 (0.2) E.U./dL Ur Leukocyte Esterase Negative (NEGATIVE) Urine RBC None seen (0-5/HPF) Urine WBC None seen (0-5/HPF) Urine Bacteria None seen (None) Hyaline Casts 5-10/lpf (None) Granular Casts 0-1/lpf (None) Urine Mucus 2+ H (Negative) Ur Random Sodium 43 (30-90) mmol/L Urine Creatinine 39.7 mg/dL SARS-CoV-2 (PCR) (Negative) Blood Type 04/02/22 04/02/22 Range/Units 01:53 02:36 WBC 12.9 H (4.5-11.0) X10^3/uL RBC 3.83 L (4.0-5.2) X10^6/uL Hgb 12.1 (12.0-16.0) g/dL Hct 34.6 L (36-46) % MCV 90.2 (80-100) fL MCH 31.5 (26-34) PG MCHC 34.9 (30-36) % RDW 16.9 H (11.6-14.8) % Plt Count 49 L (150-400) X10^3/uL Neut % (Auto) 75.3 H (50-75) % Lymph % (Auto) 16.6 L (25-40) % [place] % (Auto) 6.9 (3-14) % Eos % (Auto) 0.3 L (2-4) % Baso % (Auto) 0.9 (0-2) % Neut # (Auto) 9700 H (6772-9967) /uL Lymph # (Auto) 2100 (7745-2040) /uL [place] # (Auto) 900 (0-900) /uL Eos # (Auto) 0 (0-450) /uL Baso # (Auto) 100 (0-100) /uL Sodium 132 L (137-145) mmol/L Potassium 3.9 (3.4-5.1) mmol/L Chloride 103 (98-107) mmol/L Carbon Dioxide 24 (22-32) mmol/L BUN 33 H (7-17) mg/dL Creatinine 1.55 H (0.52-1.04) mg/dL Estimated GFR 33 L (>60) mL/min BUN/Creatinine Ratio 21.3 (6-22) Glucose 86 (80-110) mg/dL Lactate (0.7-2.1) mmol/L Calcium 8.4 (8.4-10.2) mg/dL Total Bilirubin (0.2-1.3) mg/dL AST (14-36) IU/L ALT (<35) IU/L Alkaline Phosphatase (38-126) U/L Total Creatine Kinase (30-135) U/L CK-MB (CK-2) CK-MB (CK-2) Rel Index Troponin I (0.01-0.034) ng/mL NT-Pro-B Natriuret Pep (<450) pg/mL Total Protein (6.3-8.2) g/dL Albumin (3.5-5.0) g/dL Globulin (1.7-4.1) g/dL Albumin/Globulin Ratio (1.0-2.8) Lipase (23-300) U/L Procalcitonin (<0.5) ng/mL Urine Color Urine Appearance Urine pH (4.5-8.0) Ur Specific [place] (1.000-1.035) Urine Protein (Negative) Urine Glucose (UA) (Negative) g/dL Urine Ketones (NEGATIVE) Urine Occult Blood (Negative) Urine Nitrate (Negative) Urine Bilirubin (NEGATIVE) Urine Urobilinogen (0.2) E.U./dL Ur Leukocyte Esterase (NEGATIVE) Urine RBC (0-5/HPF) Urine WBC (0-5/HPF) Urine Bacteria (None) Hyaline Casts (None) Granular Casts (None) Urine Mucus (Negative) Ur Random Sodium (30-90) mmol/L Urine Creatinine mg/dL SARS-CoV-2 (PCR) (Negative) Blood Type MDM Narrative Medical decision making narrative: 81-year-old female nonsmoker with history of pulmonary embolism and infarction, chronic ITP, iron deficiency anemia, thrombocytopenia, recent hospitalization for hyponatremia, hallucinations and delusions. She had been admitted at [facility] for about 1 week and was discharged yesterday home. She apparently has been profoundly weak, perhaps even worse and had a fall yesterday but is confused about the details of this fall and it is actually unclear she did fall but is altered from her baseline without focal neurologic findings. She is had poor appetite. She denies any blurred vision or trouble with speech. She denies any fever or chills, chest pain or shortness of breath After history and exam CBC CMP urinalysis troponin EKG renal ultrasound ordered CT head CT cervical spine chest x-ray [facility] CC: Altered mental status Complicating co-morbidities: Recent admit for hyponatremia altered mental status at [facility] discharge yesterday. Data collected from: Patient and medical records faxed here. Medical records reviewed: Discharge summary from yesterday [facility] Differential considered: Includes but not limited to stroke/metabolic encephalopathy/kidney injury Exam documented above, pertinent findings include: Head nontender, patient did have fall during her admission to [facility], not during her admission but prior to her admission Lab Test results independently reviewed as above. Pertinent findings: Creatinine 1.02 yesterday at time of discharge from [facility]. Today is 3.0. WBCs 17.2 but has chronic leukocytosis sodium 131 potassium 4.6 BUN 45 creatinine 3.07 GFR 15 troponin 0.119 Independently reviewed EKG as above sinus tachycardia rate [address] elevation or depression Imaging studies independently reviewed: CT head CT cervical spine chest x-ray no acute process ultrasound renal no acute process Consultations: 2:00 a.m.. Cardiology did call back, there was a delay. 1.5 hours, had hard time getting cardiology to call back after paging and using answering service, s/w dr alcala, troponin likely renal related. Patient is asymptomatic no chest pain EKG reassuring. Did not proceed with non-STEMI protocol 2:27 a.m.. Spoke with hospitalist, Kary Renteria, she would like repeat CBC and renal function 2:45 a.m.. Spoke with hospitalist, Kary Renteria, she will admit patient. Renal flexion has improved. Creatinine 1.55 Treatments: Normal saline Re-evaluations: Patient denies ever having any chest pain during course of hospital stay at [facility] or currently now. Or yesterday. Discussion: Appropriate for admission. Troponin likely related to elevated creatinine. Patient denies any chest pain. EKG reassuring. Will need hydration and observation Diagnosis: Acute renal injury/metabolic encephalopathy Dr Medina: 04/06/22: I had no interaction with this patient during this emergency department visit or subsequent hospital stay. This note somehow ended up in my work list and it was unable to be removed. This is a EMR issue. I have no statements about the above note or the patient's presentation or the care provided. My name and signature related to this note should be disregarded. It is signed by myself for administrative purposes only to remove it from my work list. Discharge Plan Departure Patient Disposition: Admitted as Observation Clinical Impression: Acute kidney injury Admit Date/Time: 04/02/22 02:45 Admit Provider: Erin Renteria
--- NOTE | 2022-04-01 17:42 | DI.US.S_ITS ---
PROCEDURE: US RENAL COMPLETE INDICATIONS: ACUTE RENAL FAILURE TECHNIQUE: Real-time scanning was performed of the kidneys and bladder, with image documentation. COMPARISON: None. FINDINGS: Study is limited secondary to bowel gas and patient scanning characteristics. Kidneys: Right kidney measures 9.4 cm in length. No hydronephrosis. No evidence for cysts or stones. Renal cortex measures 1.4 cm. No evidence for nephrolithiasis. No suspicious solid mass lesions. Left kidney is not visualized on this examination secondary to moderate overlying bowel gas. Bladder: Pre-void bladder volume is 404.7 mL. Post-void residual was not able to be assessed secondary to patient unable to void. Miscellaneous: No free pelvic fluid. IMPRESSION: Right kidney without acute sonographic abnormalities. No evidence for nephrolithiasis or hydronephrosis. Left kidney was not visualized on this study secondary to moderate overlying bowel gas. Prevoid urinary bladder measured 404.7 mL. Postvoid residual could not be measured as the patient was not able to void. Dictated by: Khris Viramontes M.D. on 04/01/2022 at 19:13 Approved by: Khris Viramontes M.D. on 04/01/2022 at 19:15
[2022-04-01 18:04] LABS: Lactate (Lactic Acid) 1.9 mmol/L (0.7-2.1)
[2022-04-01] MEDS: SODIUM CHLORIDE 0.9% 1,000 ML 1000 ML IV (18:48)
[2022-04-01 19:47] LABS: COVID19 -Nasal RAPID Negative (Negative)
[2022-04-01 20:37] LABS: Appearance Urine UA CLEAR; Bilirubin Urine UA NEGATIVE (NEGATIVE); Color Urine UA YELLOW; Glucose Urine UA NEGATIVE (Negative); Ketones Urine UA NEGATIVE (NEGATIVE); Leukocyte Esterase Urine UA NEGATIVE (NEGATIVE); Nitrite Urine UA NEGATIVE (Negative); Occult Blood Urine UA TRACE-INTACT (Negative); Protein Urine UA NEGATIVE (Negative); Urobilinogen Urine UA 0.2 E.U./dL (0.2)
[2022-04-01 20:43] LABS: Creatinine Urine Random 39.7 mg/dL; Sodium Urine Random 43 mmol/L (30-90); pH Urine UA 5.5 (4.5-8.0)
[2022-04-01 21:25] LABS: RBC Urine None Seen (0-5/HPF); WBC Urine None Seen (0-5/HPF)
[2022-04-01 21:26] LABS: Bacteria Urine None Seen; Granular Casts Urine 0-1/LPF; Hyaline Casts Urine 5-10/LPF; Mucus Urine 2+ (Negative)
[2022-04-02] VITALS (17 sets, daily range): BP systolic 115–179; BP diastolic 59–116; PULSE 62–101; RESP 13–24; TEMP 35.9–36.8; O2SAT 95–99; BMI 19.0
[2022-04-02] MEDS: SODIUM CHLORIDE 0.9% 1,000 ML 150 ML IV (01:30)
[2022-04-02 02:07] LABS: Creatine Kinase 37 U/L (30-135)
[2022-04-02 02:20] LABS: Troponin I 0.059 ng/mL (0.01-0.034)
[2022-04-02 02:39] LABS: BUN Creatinine Ratio 21.3 (6-22); Blood Urea Nitrogen 33 mg/dL (7-17); Calcium 8.4 mg/dL (8.4-10.2); Carbon Dioxide 24 mmol/L (22-32); Chloride 103 mmol/L (98-107); Estimated Glomerular Filt Rate 33 mL/min (>60); Glucose 86 mg/dL (80-110); HEMOLYSIS < 15 (0-50); Potassium 3.9 mmol/L (3.4-5.1); Sodium 132 mmol/L (137-145)
[2022-04-02 02:45] LABS: Add Manual Diff / Slide Review NO; Basophils Absolute Auto 100 /uL (0-100); Basophils Percent Auto 0.9 % (0-2); Eosinophils Absolute Auto 0 /uL (0-450); Eosinophils Percent Auto 0.3 % (2-4); Hematocrit 34.6 % (36-46); Hemoglobin 12.1 g/dL (12.0-16.0); Lymphocytes Absolute Auto 2100 /uL (1100-4500); Lymphocytes Percent Auto 16.6 % (25-40); Mean Corpuscular HGB Conc 34.9 % (30-36); Mean Corpuscular Hemoglobin 31.5 PG (26-34); Mean Corpuscular Volume 90.2 fL (80-100); Monocytes Absolute Auto 900 /uL (0-900); Monocytes Percent Auto 6.9 % (3-14); Neutrophils Absolute Auto 9700 /uL (1500-7000); Neutrophils Percent Auto 75.3 % (50-75); Platelet Count 49 X10^3/uL (150-400); Red Blood Cell Count 3.83 X10^6/uL (4.0-5.2); Red Cell Distribution Width 16.9 % (11.6-14.8); White Blood Cell Count 12.9 X10^3/uL (4.5-11.0)
--- NOTE | 2022-04-02 03:26 | P.HP_ITS ---
History of Present Illness History of Present Illness Date Patient Seen: 04/02/22 Time Patient Seen: 04:32 Chief complaint: weakness/nausea Narrative: Mayur Mahan is 81-year-old female nonsmoker with history of pulmonary embolism and infarction, chronic ITP, iron deficiency anemia, thrombocytopenia, recent hospitalization for severe hyponatremia, hallucinations and delusions.? She had been admitted at [facility] for about 1 week and was dis charged yesterday home.? She apparently has been profoundly weak, perhaps even worse and had a fall yesterday but is confused about the details of this fall. It is actually unclear she did fall but is altered from her baseline without focal neurologic findings.? She is had poor appetite.? She denies any blurred vision or trouble with speech.? She denies any fever or chills, chest pain or shortness of breath. She states her blood pressure has not been managed well, she has had to go the the ED a couple of times for this. She states she always receives IVIG when her platelets drop and states most of her interactions with her collections manager is through his nurses. She states Dr. Yanez does not want to treat me anymore. She stated he ordered dexamethasone for her and if we gave her this, I would walk out. She denies any pain, she states her bruising on her arm is from her ITP and that nothing is getting done for this. She states she lives at home with her who is 87 and has to hire out help in caring for him. Imaging studies including Chest xray, C-spine CT, head CT and renal ultrasound were all unremarkable with no acute findings. She presented with a platelet count of 59, then increased to 64 and is now 49, she has a mildly elevated WBC of 12.9, initial creatinine was 3.07, with IV hydration is now 1.55, eGFR from 15 to 33 now. Troponin was initially .0119, now trending downward to 0.059, likely due to her EMILY. COVID-19 PCR was negative. Reviewed inpatient admission records at [facility]. She was discharged from [facility] yesterday after being admitted for severe hyponatremia on 03/25/21. When she was admitted, she was completing a course of oral antibiotics for a UTI. She was seen by nephrology and their differential included SIADH versus primary polydypsia versus adrenal insufficiency or a medication adverse effect. She was treated with fluid restriction and 1 dose of hypertonic solution and corrected from 120 to 130 very quickly and started on oral torsemide with instructions to follow up with the Nephrology clinic a week after discharge. Her UTI treatment was completed with IV cefepime. Patient History Medical History Anxiety Atrial flutter Chronic steroid use History of ITP Hypertension Microscopic hematuria Osteoporosis Scoliosis Surgical History History of splenectomy History of tonsillectomy Status post hysterectomy Family & Social History Family History Father Cancer Mother Bleeding disorder Brother Brain cancer Social History: household members spouse lives independently Yes Safety & Behavioral: Feels Safe in Current Yes Environment Been Physically Hurt or No Threatened By a Person Tobacco & Substance use: Smoking Status Never smoker alcohol intake current alcohol intake frequency a few times a week Substance Use Type does not use Meds Home Medications and Allergies Home Medications Medication Instructions Recorded Confirmed Type polyethylene glycol 3350 17 gram 17 gm PO BEDTIME PRN Constipation 05/26/17 03/21/22 History oral powder packet (Miralax) ##0 ascorbic acid (vitamin C) 500 mg 500 mg DAILY 02/08/20 03/21/22 History tablet (Vitamin C) cholecalciferol (vitamin D3) 50 50 mcg PO DAILY 02/08/20 03/21/22 History mcg (2,000 unit) capsule (Vitamin D3) elderberry fruit 200 mg capsule 200 mg PO DAILY 02/08/20 03/21/22 History multivitamin 1 tab PO DAILY 02/08/20 03/21/22 History vitamin B complex 1 tab PO DAILY 02/08/20 03/21/22 History vitamin B12 0.5 mg-folic acid 1 mg 1 tab PO DAILY 04/05/20 03/21/22 History tablet prochlorperazine maleate 5 mg 5 mg PO Q6H PRN Nausea #20 tabs 05/17/20 03/21/22 Rx tablet (Compazine) conjugated estrogens 0.625 mg/gram 0.625 mg vaginal 2XW uretheral 07/14/20 03/21/22 Rx vaginal cream caruncle #30 grams aminocaproic acid 500 mg tablet 2 g PO QID PRN Bleeding #32 tabs 10/30/21 03/21/22 Rx (Amicar) lisinopril 30 mg tablet 30 mg PO DAILY #20 tabs 03/14/22 04/01/22 Rx apixaban 2.5 mg tablet (Eliquis) mg 03/21/22 History lorazepam 0.5 mg tablet 0.5 mg PO BEDTIME #30 tabs 03/21/22 Rx prednisone 5 mg tablet 15 mg PO DIRECTED #90 tabs 03/21/22 04/01/22 Rx Allergies Allergy/AdvReac Type Severity Reaction Status Date / Time latex Allergy Mild LOCAL RASH Verified 04/01/22 16:50 Penicillins Allergy Mild CHILDHOOD Verified 04/01/22 16:50 Sulfa (Sulfonamide Allergy Mild SOMETHING Verified 04/01/22 16:50 Antibiotics) TO DO WITH BLADDER OR KIDNEY'S?? azithromycin Allergy Verified 04/01/22 16:50 iodine AdvReac Intermediate RAPID Verified 04/01/22 16:50 HEART RATE (IV CONTRAST) Review of Systems Review of Systems ROS: Yes All systems reviewed with the patient and are negative except as otherwise documented Exam Vital Signs (past 8 hours): - 04/01/22 19:30 04/01/22 19:30 04/01/22 20:00 Pulse Rate 101 H Respiratory Rate 20 Blood Pressure 146/77 H 142/79 H Pulse Oximetry Oxygen Delivery Method Room Air 04/01/22 20:00 04/01/22 20:28 04/01/22 20:28 Pulse Rate 98 H 98 H Respiratory Rate 14 13 Blood Pressure 147/72 H Pulse Oximetry 98 Oxygen Delivery Method Room Air 04/01/22 20:30 04/01/22 20:30 04/01/22 21:00 Pulse Rate 96 H Respiratory Rate 14 Blood Pressure 123/56 L 114/63 Pulse Oximetry 94 Oxygen Delivery Method Room Air 04/01/22 21:00 04/01/22 21:30 04/01/22 21:30 Pulse Rate 93 H 128 H Respiratory Rate 13 16 Blood Pressure 162/74 H Pulse Oximetry 93 Oxygen Delivery Method Room Air 04/01/22 22:00 04/01/22 22:00 04/01/22 22:30 Pulse Rate 75 Respiratory Rate 14 Blood Pressure 154/71 H 128/75 Pulse Oximetry 97 Oxygen Delivery Method Room Air 04/01/22 22:30 04/01/22 23:00 04/01/22 23:00 Pulse Rate 93 H 96 H Respiratory Rate 13 14 Blood Pressure 138/82 Pulse Oximetry 98 97 Oxygen Delivery Method Room Air Room Air 04/01/22 23:30 04/01/22 23:30 04/02/22 00:00 Pulse Rate 104 H Respiratory Rate 24 Blood Pressure 144/76 H 142/78 H Pulse Oximetry 97 Oxygen Delivery Method Room Air 04/02/22 00:00 04/02/22 00:30 04/02/22 00:30 Pulse Rate 95 H 97 H Respiratory Rate 20 13 Blood Pressure 142/84 H Pulse Oximetry 98 98 Oxygen Delivery Method Room Air Room Air 04/02/22 01:00 04/02/22 01:00 04/02/22 01:01 Pulse Rate 90 Respiratory Rate 24 20 Blood Pressure 179/116 H Pulse Oximetry 96 97 Oxygen Delivery Method Room Air Room Air 04/02/22 01:01 04/02/22 01:30 04/02/22 02:00 Pulse Rate 86 75 Respiratory Rate 14 13 Blood Pressure 164/80 H Pulse Oximetry 97 97 Oxygen Delivery Method Room Air Room Air Oxygen Delivery Method Room Air Narrative Exam Narrative: Gen: Alert, oriented, thin and cachectic 81 y.o. female, NAD HEENT: normocephalic, atraumatic, conjunctiva clear, sclera non-icteric, oral mucosa pink and moist Neck: supple, full ROM, no JVD, trachea is midline Resp: Lungs CTA, non-labored breathing CV: RRR, no murmur or rubs Abd: soft, non-tender, normoactive BTs Skin: Thin and friable with multiple bruises on her upper extremities, appears dry w/poor turgor Neuro: Alert and oriented X 4 w/no focal deficits. Speech clear and coherent. Extremities: moves all 4 extremities, is ambulatory, negative Avery?s sign Psyche: normal mood and affect. Objective Labs 04/02/22 02:36 04/02/22 01:53 Labs: Laboratory Results - last 24 hr 04/01/22 04/01/22 04/01/22 16:38 16:38 16:38 WBC 17.2 H RBC 4.73 Hgb 14.9 Hct 42.9 MCV 90.7 MCH 31.4 MCHC 34.6 RDW 16.9 H Plt Count 64 L Neut % (Auto) 86.9 H D Lymph % (Auto) 7.9 L [place] % (Auto) 4.4 Eos % (Auto) 0.1 L Baso % (Auto) 0.7 Neut # (Auto) 54734 H Lymph # (Auto) 1400 [place] # (Auto) 800 Eos # (Auto) 0 Baso # (Auto) 100 Sodium 131 L Potassium 4.6 Chloride 91 L Carbon Dioxide 27 BUN 45 H Creatinine 3.07 H Estimated GFR 15 L BUN/Creatinine Ratio 14.7 Glucose 94 Lactate Calcium 10.8 H Total Bilirubin 1.1 AST 31 ALT 24 Alkaline Phosphatase 67 Total Creatine Kinase 37 CK-MB (CK-2) TNP CK-MB (CK-2) Rel Index TNP Troponin I 0.119 H NT-Pro-B Natriuret Pep 863 H Total Protein 8.4 H Albumin 4.7 Globulin 3.7 Albumin/Globulin Ratio 1.3 Lipase 109 Procalcitonin 0.21 Urine Color Urine Appearance Urine pH Ur Specific [place] Urine Protein Urine Glucose (UA) Urine Ketones Urine Occult Blood Urine Nitrate Urine Bilirubin Urine Urobilinogen Ur Leukocyte Esterase Urine RBC Urine WBC Urine Bacteria Hyaline Casts Granular Casts Urine Mucus Ur Random Sodium Urine Creatinine SARS-CoV-2 (PCR) 04/01/22 04/01/22 04/01/22 16:38 19:26 20:29 WBC RBC Hgb Hct MCV MCH MCHC RDW Plt Count Neut % (Auto) Lymph % (Auto) [place] % (Auto) Eos % (Auto) Baso % (Auto) Neut # (Auto) Lymph # (Auto) [place] # (Auto) Eos # (Auto) Baso # (Auto) Sodium Potassium Chloride Carbon Dioxide BUN Creatinine Estimated GFR BUN/Creatinine Ratio Glucose Lactate 1.9 Calcium Total Bilirubin AST ALT Alkaline Phosphatase Total Creatine Kinase CK-MB (CK-2) CK-MB (CK-2) Rel Index Troponin I NT-Pro-B Natriuret Pep Total Protein Albumin Globulin Albumin/Globulin Ratio Lipase Procalcitonin Urine Color Urine Appearance Urine pH Ur Specific [place] Urine Protein Urine Glucose (UA) Urine Ketones Urine Occult Blood Urine Nitrate Urine Bilirubin Urine Urobilinogen Ur Leukocyte Esterase Urine RBC Urine WBC Urine Bacteria Hyaline Casts Granular Casts Urine Mucus Ur Random Sodium 43 Urine Creatinine 39.7 SARS-CoV-2 (PCR) Negative 04/01/22 04/02/22 04/02/22 20:29 01:50 01:53 WBC RBC Hgb Hct MCV MCH MCHC RDW Plt Count Neut % (Auto) Lymph % (Auto) [place] % (Auto) Eos % (Auto) Baso % (Auto) Neut # (Auto) Lymph # (Auto) [place] # (Auto) Eos # (Auto) Baso # (Auto) Sodium 132 L Potassium 3.9 Chloride 103 Carbon Dioxide 24 BUN 33 H Creatinine 1.55 H Estimated GFR 33 L BUN/Creatinine Ratio 21.3 Glucose 86 Lactate Calcium 8.4 Total Bilirubin AST ALT Alkaline Phosphatase Total Creatine Kinase 37 CK-MB (CK-2) TNP CK-MB (CK-2) Rel Index TNP Troponin I 0.059 H NT-Pro-B Natriuret Pep Total Protein Albumin Globulin Albumin/Globulin Ratio Lipase Procalcitonin Urine Color Yellow Urine Appearance Clear Urine pH 5.5 Ur Specific [place] 1.010 Urine Protein Negative Urine Glucose (UA) Negative Urine Ketones Negative Urine Occult Blood Trace-intact Urine Nitrate Negative Urine Bilirubin Negative Urine Urobilinogen 0.2 Ur Leukocyte Esterase Negative Urine RBC None seen Urine WBC None seen Urine Bacteria None seen Hyaline Casts 5-10/lpf Granular Casts 0-1/lpf Urine Mucus 2+ H Ur Random Sodium Urine Creatinine SARS-CoV-2 (PCR) 04/02/22 02:36 WBC 12.9 H RBC 3.83 L Hgb 12.1 Hct 34.6 L MCV 90.2 MCH 31.5 MCHC 34.9 RDW 16.9 H Plt Count 49 L Neut % (Auto) 75.3 H Lymph % (Auto) 16.6 L [place] % (Auto) 6.9 Eos % (Auto) 0.3 L Baso % (Auto) 0.9 Neut # (Auto) 9700 H Lymph # (Auto) 2100 [place] # (Auto) 900 Eos # (Auto) 0 Baso # (Auto) 100 Sodium Potassium Chloride Carbon Dioxide BUN Creatinine Estimated GFR BUN/Creatinine Ratio Glucose Lactate Calcium Total Bilirubin AST ALT Alkaline Phosphatase Total Creatine Kinase CK-MB (CK-2) CK-MB (CK-2) Rel Index Troponin I NT-Pro-B Natriuret Pep Total Protein Albumin Globulin Albumin/Globulin Ratio Lipase Procalcitonin Urine Color Urine Appearance Urine pH Ur Specific [place] Urine Protein Urine Glucose (UA) Urine Ketones Urine Occult Blood Urine Nitrate Urine Bilirubin Urine Urobilinogen Ur Leukocyte Esterase Urine RBC Urine WBC Urine Bacteria Hyaline Casts Granular Casts Urine Mucus Ur Random Sodium Urine Creatinine SARS-CoV-2 (PCR) Assessment & Plan Assessment & Plan narrative: Mayur Mahan is placed into observation for further management of dehydration and resultant EMILY and confusion. 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 * Please notify Dr. Yanez, oncologist of her admission * 6-pack of platelets ordered, will come from [place] * Holding apixaban Possible premature d/c from [facility] * Have ordered PT/OT for home safety and cognitive eval * SW consult for placement Other independent historians: recommend discussion of her case w/her daughter, patient states her daughter is a nurse practitioner in [place]. Discussion of results, plan of care with independent HCP/other: ED provider Reviewed outside records: [facility] inpatient hospitalization records VTE Prophylaxis: Wells risk score 4.5 [X] Bilateral SCDs Pharmacological VTE prophylaxis contraindicated in the setting of ITP Patient is placed into observation as her stay is not expected to exceed 2 midnights. FEN: IV fluids: NS at 125 ml/hour, diet: heart healthy, labs: CBC, C/BMP, liver enzymes, Mag, PT/INR Consultants: Have requested consult from Dr. Yanez, her oncologist Social determinants of health: Lives alone (?), may be developing more severe dementia, unable to drive and access services Dispo: Unknown at this time Code status: DNR/DNI as discussed with the patient who identifies her daughter, Esteafny Snow as her surrogate and POA. [X] I have utilized all available immediate resources to obtain, update, or review of the patient's current medications VTE Deep Vein Thrombosis/Pulmonary Embolism Present on Admission: No MIPS - Admit I confirm the patient?s Advance Care Plan is present, Code status is documented, Surrogate decision maker is in patient?s record: Yes MIPS - DC The patient has current or prior documentation of left ventricular ejection fraction (LVEF) less than 40%, or moderate or severely depressed left ventricular systolic function.: No COVID-19 COVID-19 status: Negative Result date/Date tested (Pos, Neg/Pending): 04/02/22 Scores Wells' Criteria for PE Clinical signs and symptoms of DVT: No PE is #1 Dx or equally likely: No Heart rate > 100: Yes Immobilization at least 3 days or surg in previous 4 weeks: Yes History of PE or DVT: Yes Hemoptysis: No Malignancy w/Treatment within 6 months or palliative: No Wells' PE Score total: 4.5
[2022-04-02] MEDS: SODIUM CHLORIDE 0.9% 1,000 ML 125 ML IV (04:00)
[2022-04-02] MEDS: PANTOPRAZOLE DR 20 MG TABLET PO (05:05)
[2022-04-02] MEDS: predniSONE 5 MG TABLET 10 MG PO (08:40)
[2022-04-02] MEDS: lisinopriL 10 MG TABLET 30 MG PO (08:40)
--- NOTE | 2022-04-02 10:26 | OT.IPNOTE ---
Checked on pt for OT eval, pt to be getting platelets , to check on the pt later.
--- NOTE | 2022-04-02 11:20 | DIET.CONS ---
Dietary Consultation Note Admission Date: 04/02/2022 02:45 Assessment: 81 y/o F admitted for EMILY and thrombocytopenia. RD consulted for MNA 7. Met with pt bedside to discuss current kcal intake. Pt reports everything going downhill since scoliosis brace and has had a decrease in appetite in the past few days. Pt's reports spouse does not get along with pts daughter which causes her lots of stress. Cooking is too much for pt, as it is boring and creates too many dishes. In the past, pts grader tender cooked meals for her which she enjoyed. Would like a third constitution party to cook/prep for her again. Pt avoids all spicy and acidic food because it does not agree with her. Does not eat blueberries and grapes per IVIG therapy. No bananas due to their high K+. Pt currently consumes chocolate ensure 1x/d. Pt appears thin, visible ribs and sternum in chest, depressed temples. Ht: 165.1 cm Wt: 51.8 kg (-7.8% in 3 months, severe) BMI: 19.0 (low for age) UBW: 126 lbs/57.3 kg (pt reported) MNA: 7 Robert Score: 19 Diet: 04/02/22 Breakfast Heart Healthy Diet Diet Modifications: Sodium Level: 2 gm Sodium Nutrition Percent Meal Consumed 25% 04/02/22 08:56 Labs: RBC 3.83 X10^6/uL (4.0-5.2) L 04/02/22 02:36 Hgb 12.1 g/dL (12.0-16.0) 04/02/22 02:36 Hct 34.6 % (36-46) L 04/02/22 02:36 Creatinine 1.55 mg/dL (0.52-1.04) H 04/02/22 01:53 Lactate 1.9 mmol/L (0.7-2.1) 04/01/22 16:38 NT-Pro-B Natriuret Pep 863 pg/mL (<450) H 04/01/22 16:38 Nutrition Diagnosis: severe acute protein calorie malnutrition r/t decrease in appetite and ability to cook for self aeb 7.8% unintentional wt loss in 3 months (severe), BMI 19 (low for age), MNA 7 (malnourished), evidence of moderate muscle and fat wasting. Interventions: 1. Collaborated on ways to get help with cooking/meal prep. 2. Wrote down foods pt likes/dislikes/avoids for family and/or third constitution party services. 3. Recc increasing ensure intake to 2x/d or when appetite is lacking. EER: 5066-6104 kcal (30-35 kcal/kg per malnutrition), 65-75 g protein (1.3-1.5 g/kg per malnutrition) Monitoring/Evaluations: PO, ONS tolerance Electronically Signed by: Maricarmen Patiño 04/02/22 11:20 Clinical [address] [id number]
--- NOTE | 2022-04-02 11:52 | CM.DANOTE ---
Addendum entered by Fabiola Veliz R.N. 04/02/22 16:18: Patient's daughter, Lin, called back and indicated that she spoke to [facility]. She stated, they can possibly start the assessment if they can get H&P, nursing notes, med list. She gave fax number of: [phone]. Asking RICK Mueller physician office assistant, if she can fax this tomorrow. Addendum entered by Fabiola Veliz R.N. 04/02/22 15:40: Spoke to patient's daughter, Lin. She is POA, and working on being patient's financial POA as well. She stated that she has found a memory care facility for her mother in [place], for Lin lives near [facility] near [place], and is working on getting patient closer to her. The facility is called [facility]. She stated that they may be able to take her mother on Friday, but will call them back to see if they can take her sooner. She is aware that patient likely will need to go home when stable prior to this. She did not think that home health would do much good, since they are not there all of the time anyway. She confirmed that patient resides with her spouse, which is Lin's step dad, who she does not get along with. Asked her if patient is willing to go to a memory care, and she indicated, she is. She wanted to know how her mother's cognitive eval was today, and had Janessa, occupational therapist speak to her, her SLUMMS was a 21-30. Bijal is working with the [employer] to get her mother's finances in order, but indicated that they may want some sort of document showing that her mother has cognitive issues. Let her know that it is unclear if hospitalist can provide this, but can mention at team rounds. Patient at this time, is making decisions, and likely will want to go home at this time. Original Note: DCP: Case received, EMR reviewed and met with patient. Introduced self and role. Was able to obtain information regarding patient's baseline activity status prior to hospitalization. DCP assessment completed with information currently available. Patient is an 81 year old female who admitted early this morning to the care of the hospitalist team. PCP: Arelis Dinh, PAC. Payer: confirmed: Medicare. Patient came to the hospital via ambulance secondary to weakness, a fall that occurred, altered mental status from baseline. Notes indicate that patient had just been discharged from [facility] yesterday, she had been at that hospital for approximately a week. She had been admitted there for hyponateremia on 03/25. She was also completing a course of oral antibiotics for UTI. Patient has history of immune thrombocytopenia, she is under the care of Dr. Yanez. She normally obtains CBCs at her oncologist's office three times a week, was due for a recheck on 04/04. Patient will be needing platelets, they had to order from oncology, is here now. P.T, and O.T. is ordered for home and safety cognitive, notes indicate, [employer]AR[employer] for plaement, but patient wants to go home. Met with patient in her room. She was sitting up in bed, alert and oriented. Confirmed that she resides in [place] with spouse, Jayson. She indicated that she uses no DME at baseline, and is still driving. Confirmed that she was just discharged from [facility]. Asked her if his [place] Community Outreach Director can call he daughter, Denise Snow, who is DPOA. She gave permission, but also wants to talk to her. This [place] Community Outreach Director attempted to reach Brenda, left her a message to call this [place] Community Outreach Director back. Had noted that patient had been speaking to her on the phone prior. Spoke to Alisa, control systems engineer. Indicated that patient has nutritional deficits, is looking into getting someone in the home to assist with meals. Stated, she will not want to go to a penitentiary facility. , Jayson, had been at bedside already. Was also informed that patient's daughter was looking in to caregivers, verus assistant terminal manager care, but need to get updated information regarding this. Patient may benefit with home health. P.T. is now in the room getting ready to work with her. P: DCP to continue to follow for needs. Will obtain resources, and awaiting daughter to call back with additional information. Fabiola Veliz RN/Facilities Specialist Discharge Planning/Care Management CM Discharge Assessment Start: 04/02/22 11:46 Freq: Status: Active Protocol: Document 04/02/22 11:48 VM (Rec: 04/02/22 11:52 VM [id number]) Discharge Planning Assessment Assigned Wardrobe Consultant Fabiola Veliz RN/Facilities Specialist Advance Directives? Yes Advance Directives on File No History Provided By Patient,Medical Record Prior Living Arrangements House Household Members spouse Type of transporation used prior to Drives own vehicle admit Independent with ADL's Yes Is patient alert and oriented? Yes Needs Assistance With Home Chores / Shopping Caregiver for Another No Patient/Family Preference Home with Home Health Barriers to Discharge Yes Comment Due to health issues, some cognitive issues, has nutritional deficits as well. Discharge Plan Home with Home Health Transportation Arrangement Patient reported she plans to drive herself home from hospital. Referrals Initiated None needed Whiteboard Updated in Patient Room with Yes name and ext. # of Wardrobe Consultant Review Status In Process Next Review Type Continued Stay Review
--- NOTE | 2022-04-02 11:55 | PT.IIE ---
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) Surgical History (Last Reviewed 04/02/22 @ 04:48 by DOMENIC Garcia) History of splenectomy History of tonsillectomy Status post hysterectomy Medical History (Last Reviewed 04/02/22 @ 04:48 by DOMENIC Garcia) Anxiety Atrial flutter Chronic steroid use History of ITP Hypertension Microscopic hematuria Osteoporosis Scoliosis Physical Therapy Inpatient Evaluation/Re-Eval M1 PT/OT-IP Prior Functional Status Start: 04/02/22 13:08 Freq: NEEDED Status: Active Protocol: Document 04/02/22 11:55 AB (Rec: 04/02/22 13:25 AB [id number]) Medical Review Prior Functional Status Medical History Reviewed Yes Communication able to make needs known Mobility and Gait pt stated that she is independent with all mobilities and ambulation without AD Social History Household Members spouse Living Arrangements House Number of Floors (Floors) 3 or More Floors Number of Stairs To Enter/Railing? pt lives in a split level house 4 steps R rail to enter the house; 10 steps L rail descending to bedroom Home Environment Standard Height Toilet,Tub/ Shower Home Equipment Shower Seat with Backrest M2 PT-IP Current Condition Start: 04/02/22 13:08 Freq: NEEDED Status: Active Protocol: Document 04/02/22 11:55 AB (Rec: 04/02/22 13:25 AB [id number]) Physical Therapy Current Condition Current Condition Evaluation Date 04/02/22 Treatment Diagnosis EMILY; difficulty in walking Onset Date 04/02/22 M3 PT-IP Subjective Start: 04/02/22 13:08 Freq: NEEDED Status: Active Protocol: Document 04/02/22 11:55 AB (Rec: 04/02/22 13:25 AB [email or web address]) Subjective Physical Therapy Visit Type Type Initial Evaluation Visit Start Time 11:55 Visit Stop Time 12:15 Total Visit Minutes 20 Number of FISH ICER Visits 0 Physical Therapy Visit Comments Patient Comments pt agreed to do PT but stated that she will do it so that she will not get points off to be able to go home; stated that she will not answer questions that was asked before but she will answer so that she will not get points off from her. Therapy Pain Assessment Pain Present Pain Present Denied Pain M4 PT-IP Mobility and Gait Start: 04/02/22 13:08 Freq: NEEDED Status: Active Protocol: Document 04/02/22 11:55 AB (Rec: 04/02/22 13:25 AB [id number]) PT-Bed Mobility Assessment Supine to Sit Supine to Sit Standby Assistance PT-Transfer Assessment Sit to and From Stand Sit to and from Stand Contact Guard Assistance,1 Person Assistance,Use of Upper Extremities Equipment Transfer Assistive Device Gait Belt,Front Wheeled Walker Orthotic/Prosthetic Devices or Brace: No Transfers Transfer Destination Chair Transfer Technique Stand Step Pivot Transfer Ability Level of Assist Contact Guard Assistance,1 Person Assistance,Use of Upper Extremities Comments Mobility Comments pt receiving platelets but wants to sit up on the chair and stated that she has been in bed for 24 hours. checked with nurse for clearance and stated that it is ok for pt to get up. BP: 134/78. pt completed supine to sit SBA. sit to stand CGA and step transfer to chair using fWW CGA. pt can be impulsive. positioned pt on the chair. call light and table placed within reach. chair alarm on. 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 Gross Range of Motion Lower Extremity ROM Assessment Within Functional Limits Strength Lower Extremity Strength Hip 4-/5 Knee 4-/5 Sensation Assessment Sensation Gross Sensation WNL Muscle Tone Muscle Tone WNL Yes M6 PT-IP Treatment Start: 04/02/22 13:08 Freq: NEEDED Status: Active Protocol: Document 04/02/22 11:55 AB (Rec: 04/02/22 13:25 AB [email or web address]) Physical Therapy Treatment Education Education Provided Safety M7 PT-IP Assessment and Plan Start: 04/02/22 13:08 Freq: NEEDED Status: Active Protocol: Document 04/02/22 11:55 AB (Rec: 04/02/22 13:25 AB [email or web address]) PT Summary Assessment and Plan Potential Rehabilitation Potential Good Status of Condition at Evaluation Evolving Summary Impairments ROM,Strength,Balance, Coordination,Sensation,Tone, Cognition,Bed Mobility, Transfers,Gait,Activity Tolerance Assessment Summary pt requiring SBA to CGA with mobility using FWW. pt will have her spouse to assist her at home. will need to complete stair climbing prior to d/c. will continue to assess progress. Goals Bed Mobility Goal Independent Transfer Goal Independent,Front Wheeled Walker Gait Goal Independent,Front Wheel Walker Gait Distance 200 Other Goals improve ambulation without AD 200 ft SBA up/down 10 steps R rail ascending SBA Days to Meet Goals 10 Frequency of Treatment Frequency Of Treatment Once a Day Treatment Plan Physical Therapy Treatment Plan Bed Mobility Training,Transfer Training,Gait Training, Therapeutic Exercise,Balance Retraining,Discharge Planning, Hot or Cold Pack,Neuromuscular Re-ed,Coordination Retraining Precautions Other Precautions falls Recommendations To Nursing Amount of Assist Needed 1 Person Assist Discharge Recommendations PT Discharge Recommendations Home with Assistance,Home Health Equipment Needed for Home Before fWW if not safe without AD Discharge Transportation Needs at Discharge Private Vehicle
--- NOTE | 2022-04-02 14:25 | P.PN_ITS ---
Subjective Subjective Date Patient Seen: 04/02/22 Interval history: As per the admitting history: Mayur Mahan is 81-year-old female nonsmoker with history of pulmonary embolism and infarction, chronic ITP, iron deficiency anemia, thrombocytopenia, recent hospitalization for severe hyponatremia, hallucinations and delusions.? She had been admitted at [facility] for about 1 week and was discharged yesterday home.? She apparently has been profoundly weak, perhaps even worse and had a fall yesterday but is confused about the details of this fall. It is actually unclear she did fall but is altered from her baseline without focal neurologic findings.? She is had poor appetite.? She denies any blurred vision or trouble with speech.? She denies any fever or chills, chest pain or shortness of breath. She states her blood pressure has not been managed well, she has had to go the the ED a couple of times for this. She states she always receives IVIG when her platelets drop and states most of her interactions with her luggage maker is through his nurses. She states Dr. Yanez does not want to treat me anymore. She stated he ordered dexamethasone for her and if we gave her this, I would walk out. SLUMS score today Platelets order and transfused today. Patient mobile but still confused this morning but is beginning to clear. Exam Vital Signs (past 8 hours): - 04/02/22 07:48 04/02/22 08:40 04/02/22 09:50 Temperature 97.7 F 97.5 F L Pulse Rate 73 74 82 Respiratory Rate 18 18 Blood Pressure 128/66 122/59 L 154/83 H Pulse Oximetry 99 98 Oxygen Delivery Method Oxygen Flow Rate 0 0 04/02/22 10:24 04/02/22 10:39 04/02/22 08:00 Temperature 98.2 F 98.0 F Pulse Rate 77 74 Respiratory Rate 16 16 Blood Pressure 126/66 132/71 Pulse Oximetry Oxygen Delivery Method Room Air Oxygen Flow Rate Oxygen Delivery Method Room Air Oxygen Flow Rate 0 Narrative Exam Narrative: Gen: Alert, oriented, thin and cachectic 81 y.o. ? female, NAD HEENT: normocephalic, atraumatic, conjunctiva clear, sclera non-icteric, oral mu cosa pink and moist Neck: supple, full ROM, no JVD, trachea is midline Resp: Lungs CTA, non-labored breathing CV: RRR, no murmur or rubs Abd: soft, non-tender, normoactive BTs Skin: Thin and friable with multiple bruises on her upper extremities, appears dry w/poor turgor Neuro: Alert and oriented X 4 w/no focal deficits. Speech clear and coherent. Extremities: moves all 4 extremities, is ambulatory, negative Avery?s sign Psyche: normal mood and affect. Objective Labs 04/02/22 02:36 04/02/22 01:53 Labs: Laboratory Results - last 24 hr 04/01/22 04/01/22 04/01/22 08:35 16:38 16:38 WBC 17.2 H RBC 4.73 Hgb 14.9 Hct 42.9 MCV 90.7 MCH 31.4 MCHC 34.6 RDW 16.9 H Plt Count 64 L Neut % (Auto) 86.9 H D Lymph % (Auto) 7.9 L Sharp % (Auto) 4.4 Eos % (Auto) 0.1 L Baso % (Auto) 0.7 Neut # (Auto) 83783 H Lymph # (Auto) 1400 Sharp # (Auto) 800 Eos # (Auto) 0 Baso # (Auto) 100 Sodium 131 L Potassium 4.6 Chloride 91 L Carbon Dioxide 27 BUN 45 H Creatinine 3.07 H Estimated GFR 15 L BUN/Creatinine Ratio 14.7 Glucose 94 Lactate Calcium 10.8 H Total Bilirubin 1.1 AST 31 ALT 24 Alkaline Phosphatase 67 Total Creatine Kinase 37 CK-MB (CK-2) TNP CK-MB (CK-2) Rel Index TNP Troponin I 0.119 H NT-Pro-B Natriuret Pep Total Protein 8.4 H Albumin 4.7 Globulin 3.7 Albumin/Globulin Ratio 1.3 Lipase 109 Procalcitonin 0.21 Urine Color Urine Appearance Urine pH Ur Specific Evergreen Urine Protein Urine Glucose (UA) Urine Ketones Urine Occult Blood Urine Nitrate Urine Bilirubin Urine Urobilinogen Ur Leukocyte Esterase Urine RBC Urine WBC Urine Bacteria Hyaline Casts Granular Casts Urine Mucus Ur Random Sodium Urine Creatinine SARS-CoV-2 (PCR) Blood Type O Negative 04/01/22 04/01/22 04/01/22 16:38 16:38 19:26 WBC RBC Hgb Hct MCV MCH MCHC RDW Plt Count Neut % (Auto) Lymph % (Auto) Sharp % (Auto) Eos % (Auto) Baso % (Auto) Neut # (Auto) Lymph # (Auto) Sharp # (Auto) Eos # (Auto) Baso # (Auto) Sodium Potassium Chloride Carbon Dioxide BUN Creatinine Estimated GFR BUN/Creatinine Ratio Glucose Lactate 1.9 Calcium Total Bilirubin AST ALT Alkaline Phosphatase Total Creatine Kinase CK-MB (CK-2) CK-MB (CK-2) Rel Index Troponin I NT-Pro-B Natriuret Pep 863 H Total Protein Albumin Globulin Albumin/Globulin Ratio Lipase Procalcitonin Urine Color Urine Appearance Urine pH Ur Specific Evergreen Urine Protein Urine Glucose (UA) Urine Ketones Urine Occult Blood Urine Nitrate Urine Bilirubin Urine Urobilinogen Ur Leukocyte Esterase Urine RBC Urine WBC Urine Bacteria Hyaline Casts Granular Casts Urine Mucus Ur Random Sodium Urine Creatinine SARS-CoV-2 (PCR) Negative Blood Type 04/01/22 04/01/22 04/02/22 20:29 20:29 01:50 WBC RBC Hgb Hct MCV MCH MCHC RDW Plt Count Neut % (Auto) Lymph % (Auto) Sharp % (Auto) Eos % (Auto) Baso % (Auto) Neut # (Auto) Lymph # (Auto) Sharp # (Auto) Eos # (Auto) Baso # (Auto) Sodium Potassium Chloride Carbon Dioxide BUN Creatinine Estimated GFR BUN/Creatinine Ratio Glucose Lactate Calcium Total Bilirubin AST ALT Alkaline Phosphatase Total Creatine Kinase 37 CK-MB (CK-2) TNP CK-MB (CK-2) Rel Index TNP Troponin I 0.059 H NT-Pro-B Natriuret Pep Total Protein Albumin Globulin Albumin/Globulin Ratio Lipase Procalcitonin Urine Color Yellow Urine Appearance Clear Urine pH 5.5 Ur Specific Evergreen 1.010 Urine Protein Negative Urine Glucose (UA) Negative Urine Ketones Negative Urine Occult Blood Trace-intact Urine Nitrate Negative Urine Bilirubin Negative Urine Urobilinogen 0.2 Ur Leukocyte Esterase Negative Urine RBC None seen Urine WBC None seen Urine Bacteria None seen Hyaline Casts 5-10/lpf Granular Casts 0-1/lpf Urine Mucus 2+ H Ur Random Sodium 43 Urine Creatinine 39.7 SARS-CoV-2 (PCR) Blood Type 04/02/22 04/02/22 01:53 02:36 WBC 12.9 H RBC 3.83 L Hgb 12.1 Hct 34.6 L MCV 90.2 MCH 31.5 MCHC 34.9 RDW 16.9 H Plt Count 49 L Neut % (Auto) 75.3 H Lymph % (Auto) 16.6 L Sharp % (Auto) 6.9 Eos % (Auto) 0.3 L Baso % (Auto) 0.9 Neut # (Auto) 9700 H Lymph # (Auto) 2100 Sharp # (Auto) 900 Eos # (Auto) 0 Baso # (Auto) 100 Sodium 132 L Potassium 3.9 Chloride 103 Carbon Dioxide 24 BUN 33 H Creatinine 1.55 H Estimated GFR 33 L BUN/Creatinine Ratio 21.3 Glucose 86 Lactate Calcium 8.4 Total Bilirubin AST ALT Alkaline Phosphatase Total Creatine Kinase CK-MB (CK-2) CK-MB (CK-2) Rel Index Troponin I NT-Pro-B Natriuret Pep Total Protein Albumin Globulin Albumin/Globulin Ratio Lipase Procalcitonin Urine Color Urine Appearance Urine pH Ur Specific Evergreen Urine Protein Urine Glucose (UA) Urine Ketones Urine Occult Blood Urine Nitrate Urine Bilirubin Urine Urobilinogen Ur Leukocyte Esterase Urine RBC Urine WBC Urine Bacteria Hyaline Casts Granular Casts Urine Mucus Ur Random Sodium Urine Creatinine SARS-CoV-2 (PCR) Blood Type [facility] Medical History Anxiety Atrial flutter Chronic steroid use History of ITP Hypertension Microscopic hematuria Osteoporosis Scoliosis Surgical History History of splenectomy History of tonsillectomy Status post hysterectomy Family History Father Cancer Mother Bleeding disorder Brother Brain cancer Social History marital status: household members: spouse lives independently: Yes Smoking Status: Former smoker alcohol intake: former Assessment & Plan Assessment & Plan narrative: 1. EMILY, likely from dehydration, present on admission * Initial presentation to the ed, her creatinine was 3+ w/an eGFR of 15, creati nine came down nicely to 1.55 and eGFR to 33 after fluid hydration * Renal US was negative for an obstructive pattern or hydronephrosis * Continue gentle fluid hydration as she is prone to developing severe and symptomatic hyponatremia * Follow renal function daily 2. Immune thrombocytopenia, with a platlet count of 49 * She normally obtains CBCs at her oncologist's office three times a week and was due for a recheck on 04/04. * Please notify Dr. Yanez, oncologist of her admission -done * 6-pack of platelets ordered, will come from [place] - transfusing today * Holding apixaban 3. Possible premature d/c from [facility] * Have ordered PT/OT for home safety and cognitive eval, SLUMS * consult for placement * confusion that is beginning to clear VTE Prophylaxis: Wells risk score 4.5 [X] Bilateral SCDs Pharmacological VTE prophylaxis contraindicated in the setting of ITP Dispo: Unknown at this time Code status: DNR/DNI as discussed with the patient who identifies her daughter, Estefany Snow as her surrogate and POA. VTE Deep Vein Thrombosis/Pulmonary Embolism Present on Admission: No MIPS - Admit I confirm the patient?s Advance Care Plan is present, Code status is documented, Surrogate decision maker is in patient?s record: Yes MIPS - DC The patient has current or prior documentation of left ventricular ejection fraction (LVEF) less than 40%, or moderate or severely depressed left ventricular systolic function.: No COVID-19 COVID-19 status: Negative Result date/Date tested (Pos, Neg/Pending): 04/02/22 Time Spent With Patient Critical Care time: I spent a total of [] minutes of critical care time on this patient's care today; this time is exclusive of procedural time. Quality VTE Deep Vein Thrombosis/Pulmonary Embolism Present on Admission: No
--- NOTE | 2022-04-02 14:44 | OT.IP.EVAL ---
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) Past Medical History (Last Reviewed 04/02/22 @ 04:48 by DOMENIC Garcia) Anxiety Atrial flutter Chronic steroid use History of ITP Hypertension Microscopic hematuria Osteoporosis Scoliosis Surgical History (Last Reviewed 04/02/22 @ 04:48 by DOMENIC Garcia) History of splenectomy History of tonsillectomy Status post hysterectomy Occupational Therapy Inpatient Evaluation/Re-Eval M1 PT/OT-IP Prior Functional Status Start: 04/02/22 13:08 Freq: NEEDED Status: Active Protocol: Document 04/02/22 14:17 [facility] (Rec: 04/02/22 14:44 [facility] [id number]) Medical Review Prior Functional Status Medical History Reviewed Yes Communication able to make needs known Mobility and Gait pt stated that she is independent with all mobilities and ambulation without AD Activities of Daily Living and IADL's Pt states completely independent with ADL, IADL , and drives. Social History Household Members spouse Living Arrangements House Number of Floors (Floors) 3 or More Floors Number of Stairs To Enter/Railing? pt lives in a split level house 4 steps R rail to enter the house; 10 steps L rail descending to bedroom Home Environment Standard Height Toilet,Tub/ Shower Home Equipment Shower Seat with Backrest M2 OT-IP Current Condition Start: 04/02/22 14:16 Freq: Status: Active Protocol: Document 04/02/22 14:17 [facility] (Rec: 04/02/22 14:44 [facility] [id number]) Occupational Therapy Current Condition Current Condition Evaluation Date 04/02/22 Treatment Diagnosis Dehydration, metabolic encephalopathy Diagnosis Onset Date 04/02/22 M3 OT- IP Subjective and Pain Start: 04/02/22 14:16 Freq: Status: Active Protocol: Document 04/02/22 14:17 [facility] (Rec: 04/02/22 14:44 [facility] [id number]) OT- Subjective Occupational Therapy Visit Type Type Initial Evaluation Visit Start Time 11:12 Visit Stop Time 13:47 Total Visit Minutes 38 Notes Pt seen for split treatment [id number] and [id number]. Occupational Therapy Visit Comments Patient Comments Pt agreed to work with OT. Patient/Caregiver Goals To go home. OT Pain Assessment Pain When Pain Assessed At Rest Pain Present Pain Present Denied Pain M4 OT- IP ADL's Start: 04/02/22 14:16 Freq: Status: Active Protocol: Document 04/02/22 14:17 [facility] (Rec: 04/02/22 14:44 [facility] [id number]) OT [id number] General Evaluation Self-Feeding Ability Independent OT ADL-Grooming General Evaluation Grooming Ability Independent OT ADL-Oral Care General Eval Oral Care Ability Independent OT ADL-Dressing General Eval Lower Body Dressing Ability Independent OT ADL-Toileting Comments OT Toileting Comments Pt states already used the bathroom prior. OT ADL-Bathing Comments OT Bathing Comments Pt wanting to shower but states will shower at home. M5 OT- IP IADL's Start: 04/02/22 14:16 Freq: Status: Active Protocol: Document 04/02/22 14:17 [facility] (Rec: 04/02/22 14:44 [facility] [id number]) OT-Instrumental Activities of Daily Living Home Safety Awareness Awareness of Need for Assistance at Home Good Awareness Ability to Problem Solve Emergency Able to Problem Solve Situations Medication Management Medication Management Comments Pt a little slow to process and would be beneficial to have assist at this time. Money Management Money Management Comments Pt a little slow to process and would be beneficial to have assist at this time. Meal Preparation Meal Preparation Comments Pt a little slow to process and would be beneficial to have assist at this time. Faceter Faceter Comments Pt a little slow to process and would be beneficial to have assist at this time. Driving Driving Concerns Identified Regarding Safety M6 OT- IP Functional Cognition Start: 04/02/22 14:16 Freq: Status: Active Protocol: Document 04/02/22 14:17 [facility] (Rec: 04/02/22 14:44 [facility] [id number]) Cognitive Factors Limiting Selfcare Function Cognitive Ability Level of Alertness Alert,Confusional State Patient Orientation Name,Place,Situation Attention Span Ability Capable of Focused Attention, Capable of Sustained Attention Ability to Follow Commands Able to Follow One Step Commands with Increased Time, Able to Follow One Step Commands with Repetition Memory Description Short Term Impaired,Working Impaired Cognitive Tests SLUMS Pt scored 21/30 which implies mild cognitive disorder. Pt not able to do calculation of 1000-23 even when written out. Pt able to recall 2/5 objects after time passed. Pt not able to write in the numbers on the clock correctly . Cognitive Comments Cognitive Assessment Comments Pt having difficulty to recall the set-up of her house at home. Pt initially saying that she has a murphy level house and then saying that she has stairs in the house. Pt then admitted that she has a split level house. OT- Vision and Hearing OT- Hearing Assessment OT- Hearing Assessment WFL OT- Vision Assessment Visual Acuity Glasses All The Time M7 OT- IP Mobility and Balance Start: 04/02/22 14:16 Freq: Status: Active Protocol: Document 04/02/22 14:17 [facility] (Rec: 04/02/22 14:44 [facility] [id number]) OT- Bed Mobility Assessment Supine to Sit Supine to Sit Assist Independent Sit to Supine Sit to Supine Assist Independent OT-Transfer Assessment Sit to and From Stand Sit to and from Stand Independent Transfers Transfer Ability Independent Technique Transfer Destination Bed Transfer Technique Stand Step Pivot Devices Transfer Assistive Devices None Comments Mobility Comments Pt independent in the room for bed mobility and transfers. OT- Balance Assessment Sitting Balance and Reactions Static Sitting Balance Ability Normal Dynamic Sitting Balance Ability Normal Standing Balance and Reactions Static Standing Balance Ability Good Dynamic Standing Balance Ability Fair M8 OT- IP Objective Assessments Start: 04/02/22 14:16 Freq: Status: Active Protocol: Document 04/02/22 14:17 [facility] (Rec: 04/02/22 14:44 [facility] [id number]) OT Gross Range of Motion Upper Extremity Range of Motion Assessment Within Functional Limits OT Strength Comments Strength Comments Not formally tested, but able to observed pt use her BUE to push herself up in the bed. OT- Coordination Assessment Upper Extremity Finger to Nose Test Within Functional Limits OT-Muscle Tone Assessment Muscle Tone WNL Yes M9 OT- IP Assessment and Plan Start: 04/02/22 14:16 Freq: Status: Active Protocol: Document 04/02/22 14:17 [facility] (Rec: 04/02/22 14:44 [facility] [id number]) OT Summary Assessment and Plan Potential Rehabilitation Potential Good Analytic Complexity at Evaluation Moderate Summary OT Impairments Functional Cognition, Functional Mobility,Bathing Progress Towards Goals Progressing Toward Goals Assessment Summary Pt MOD complexity and main barrier is some decreased dynamic balance, decreased STM and executive congitive function. Pt here for probable dehydration and therefore not sure if pt is at her baseline for cognition at this time. Pt scored 21/30 which implies mild cognitive deficits. Pt to go home with her to assist when medically stable. Goals Bathing Goal Independent Shower Transfer Goal Independent Days to Meet Goals 3 Frequency of Treatment Frequency Of Treatment Once a Day Treatment Plan OT Treatment Plan ADL Training,Functional Cognition Training,Functional Mobility,Patient/Family Education,Discharge Planning Other Treatment Recommendations and Next shower, Cove making Part B Treatment Focus Discharge Recommendations OT Discharge Recommendations Home with Assistance Transportation Needs at Discharge Private Vehicle
--- NOTE | 2022-04-02 14:46 | PC.NURSE ---
Patient received platelet transfusion this morning as ordered from [id number]. Computer error initially did not save file, had to manually renter. Patient tolerated well without signs of reaction.
[2022-04-02] MEDS: MELATONIN 3 MG TABLET PO (20:10)
[2022-04-03] MEDS: LORazepam 0.5 MG TABLET PO ×3 (00:07→23:51)
[2022-04-03 01:00] VITALS: BP 154/71; PULSE 68; RESP 16; TEMP 35.9; O2SAT 97
[2022-04-03 04:36] VITALS: BP 135/70; PULSE 62; RESP 17; TEMP 36.4; O2SAT 98
[2022-04-03 05:22] LABS: Add Manual Diff / Slide Review NO; Basophils Absolute Auto 100 /uL (0-100); Basophils Percent Auto 1.3 % (0-2); Eosinophils Absolute Auto 200 /uL (0-450); Eosinophils Percent Auto 2.2 % (2-4); Hematocrit 33.7 % (36-46); Hemoglobin 11.4 g/dL (12.0-16.0); Lymphocytes Absolute Auto 2800 /uL (1100-4500); Lymphocytes Percent Auto 25.4 % (25-40); Mean Corpuscular Hemoglobin 31.6 PG (26-34); Mean Corpuscular Volume 92.9 fL (80-100); Monocytes Absolute Auto 900 /uL (0-900); Monocytes Percent Auto 8.5 % (3-14); Neutrophils Absolute Auto 6800 /uL (1500-7000); Neutrophils Percent Auto 62.6 % (50-75); Platelet Count 144 X10^3/uL (150-400); Red Blood Cell Count 3.62 X10^6/uL (4.0-5.2); Red Cell Distribution Width 16.3 % (11.6-14.8); White Blood Cell Count 10.9 X10^3/uL (4.5-11.0)
[2022-04-03 05:26] LABS: Prothrombin Time 11.5 SECONDS (10.1-12.7)
[2022-04-03 05:31] LABS: Alanine Aminotransferase 18 IU/L (<35); Albumin 3.4 g/dL (3.5-5.0); Albumin Globulin Ratio 1.2 (1.0-2.8); Alkaline Phosphatase 48 U/L (38-126); Aspartate Aminotransferase 24 IU/L (14-36); BUN Creatinine Ratio 23.8 (6-22); Bilirubin Total 0.8 mg/dL (0.2-1.3); Blood Urea Nitrogen 19 mg/dL (7-17); Calcium 8.8 mg/dL (8.4-10.2); Carbon Dioxide 27 mmol/L (22-32); Chloride 101 mmol/L (98-107); Estimated Glomerular Filt Rate > 60 mL/min (>60); Globulin 2.9 g/dL (1.7-4.1); Glucose 75 mg/dL (80-110); HEMOLYSIS < 15 (0-50); Magnesium 1.9 mg/dL (1.6-2.3); Potassium 3.6 mmol/L (3.4-5.1); Sodium 135 mmol/L (137-145); Total Protein 6.3 g/dL (6.3-8.2)
[2022-04-03 05:39] LABS: Prealbumin 18.6 mg/dL (17.6-36.0)
[2022-04-03] MEDS: predniSONE 5 MG TABLET 10 MG PO (09:03)
[2022-04-03] MEDS: lisinopriL 10 MG TABLET 30 MG PO (09:03)
[2022-04-03 09:22] VITALS: BP 123/62; PULSE 93; RESP 16; TEMP 36.5; O2SAT 96
--- NOTE | 2022-04-03 10:25 | PT.IPTN ---
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) Physical Therapy Treatment Note M2 PT-IP Current Condition Start: 04/02/22 13:08 Freq: NEEDED Status: Active Protocol: Document 04/02/22 11:55 AB (Rec: 04/02/22 13:25 AB [id number]) Physical Therapy Current Condition Current Condition Evaluation Date 04/02/22 Treatment Diagnosis EMILY; difficulty in walking Onset Date 04/02/22 M3 PT-IP Subjective Start: 04/02/22 13:08 Freq: NEEDED Status: Active Protocol: Document 04/03/22 10:05 LJ (Rec: 04/03/22 10:25 LJ [id number]) Subjective Physical Therapy Visit Type Type Treatment Note Visit Start Time 09:28 Visit Stop Time 09:56 Total Visit Minutes 26 Physical Therapy Visit Comments Patient Comments Pt agreeable to get up and work with PT Patient Goals go home M4 PT-IP Mobility and Gait Start: 04/02/22 13:08 Freq: NEEDED Status: Active Protocol: Document 04/03/22 10:05 LJ (Rec: 04/03/22 10:25 LJ [id number]) PT-Bed Mobility Assessment Supine to Sit Supine to Sit Standby Assistance PT-Transfer Assessment Sit to and From Stand Sit to and from Stand Standby Assistance Equipment Transfer Assistive Device Gait Belt Orthotic/Prosthetic Devices or Brace: No Transfers Transfer Destination Chair,Toilet Transfer Technique ambulated Transfer Ability Level of Assist Standby Assistance,Use of Upper Extremities Comments Mobility Comments Pt in bed upon arrival. States she needs to use the toilet. Pt Donned skid socks independently and stood from side of bed lightly using UEs to push off. Ambulated to toilet SBA. Pt completed all toileting independently and ambulated out to sink to wash hands SBA. Pt then performed several balance exercises in fron of mirror without hh on counter (see treatment section ). Pt then ambulated in hallway to stairs SBA ~100'. Completed stairs x3 using single rail. Pt then ambulated SBA around N nurse's station ~200'. Pt returned to room and requested to brush teeth and wash face. She stood by the sink without hh or leaning on it ~5 min. Pt's then entered room as did other therapist for EKG. Pt ambulated to the chair and sat down w/o use of hands. Alarm placed on pt's gown and left with and therapist completing EKG. Light placed within reach. Stair Climbing Assessment Evaluation Level of Assist On Stairs Standby Assistance Technique/Endurance Stair Climbing Direction Ascend and Descend Stair Climbing Technique Step Over Step Number of Steps Climbed 3 Stair Climbing Set # Repetitions (reps) 3 Comments Stair Climbing Comments Ptusing railings and stairs appropriately and safely. PT-Balance Assessment Sitting Balance and Reactions Static Sitting Balance Ability Normal Dynamic Sitting Balance Ability Normal Standing Balance and Reactions Static Standing Balance Ability Normal Dynamic Standing Balance Ability Normal M5 PT-IP Objective Assessments Start: 04/02/22 13:08 Freq: NEEDED Status: Active Protocol: Document 04/02/22 11:55 AB (Rec: 04/02/22 13:25 AB [id number]) Orientation Orientation/Cognition Level of Alertness Confusional State Orientation Name Safety Awareness Decreased Safety Awareness Memory Description Short Term Impaired,Manager Project Impaired Gross Range of Motion Lower Extremity ROM Assessment Within Functional Limits Strength Lower Extremity Strength Hip 4-/5 Knee 4-/5 Sensation Assessment Sensation Gross Sensation WNL Muscle Tone Muscle Tone WNL Yes M6 PT-IP Treatment Start: 04/02/22 13:08 Freq: NEEDED Status: Active Protocol: Document 04/03/22 10:05 YVETTE (Rec: 04/03/22 10:25 YVETTE [id number]) Physical Therapy Treatment Education Education Provided Safety Other Treatments Other Treatment Performed 10 sit<>stand with 6' ambulation between window seat and bed. Pt did not use UEs to stand from either surface. Completed balance assessment at sink-weight shifting f/b/s/ s, feet together, staggard. No handhold on sink Standing marching at siink-no handhold. 130 sec M7 PT-IP Assessment and Plan Start: 04/02/22 13:08 Freq: NEEDED Status: Active Protocol: Document 04/03/22 10:05 YVETTE (Rec: 04/03/22 10:25 YVETTE [id number]) PT Summary Assessment and Plan Potential Rehabilitation Potential Good Status of Condition at Evaluation Evolving Summary Impairments ROM,Strength,Balance, Coordination,Sensation,Tone, Cognition,Bed Mobility, Transfers,Gait,Activity Tolerance Progress Towards Goals Goals Met Assessment Summary Pt did not require any assistive device during ambulation or standing balance exercises. She was safe on the stairs. Pt has completed all goals and is safe for DC home with assist primarily for cognitive issues. Goals Bed Mobility Goal Independent Transfer Goal Independent,Front Wheeled Walker Gait Goal Independent,Front Wheel Walker Gait Distance 200 Other Goals improve ambulation without AD 200 ft SBA up/down 10 steps R rail ascending SBA Days to Meet Goals 10 Frequency of Treatment Frequency Of Treatment Once a Day Treatment Plan Physical Therapy Treatment Plan Bed Mobility Training,Transfer Training,Gait Training, Therapeutic Exercise,Balance Retraining,Discharge Planning, Hot or Cold Pack,Neuromuscular Re-ed,Coordination Retraining Precautions Other Precautions falls Recommendations To Nursing Amount of Assist Needed 1 Person Assist Discharge Recommendations PT Discharge Recommendations Home with Assistance,Home Health Transportation Needs at Discharge Private Vehicle
[2022-04-03 14:03] VITALS: BP 146/89; PULSE 92; RESP 16; TEMP 36.5; O2SAT 95
--- NOTE | 2022-04-03 14:14 | OT.IPNOTE ---
Pt eating her lunch prior and agreed to shower after eating. Pt refusing and insisting on wanting to talk to the doctor. no charge
--- NOTE | 2022-04-03 14:23 | CM.DPC ---
Addendum entered by Fabiola Veliz R.N. 04/03/22 15:14: Dennis, phone number is: [phone]. Contact is admitting nurse, Odalis. Fax number is: [phone]. Clinical information has already been faxed. If hospitalist deems patient medically ready, DPOA can appeal, if necessary, but he will need to place discharge orders. Daughter has indicated that facility can accept Friday. Original Note: DCP Cont: Patient's daughter, Lin, has called several times. Was able to connect with her via phone. As stated yesterday, patient gave permission to talk to her. There was another individual named Razia, from [facility], that wanted information on patient, and this DC Job Placement Specialist would not give out any information, only to daughter. Daughter, Lin, continues to feel that her mother has cognitive deficits, and that she has not been truly diagnosed. She was made aware yesterday, that SLUMMS was 21-30. She is working on getting patient over to [facility], [facility] care in [place]. Spoke to Odalis at [facility], she is the admission nurse. She was hoping for information that would note that she has a cognitive deficit, that she was on psych meds. Had already faxed her over records, with patient's daughter request, but only medication that she has received is Lorazapam. Daughter was obtaining some records from [facility] to send them, since her cognitive score there was 17-30. Daughter feels that her mother is continuing to have some paranoia. Checked in with nurse, Nina, who had indicated that she is showing some signs of paranoia at certain times. Told daughter that she has been mobilizing, and that the plan is home when medically stable. Daughter called back, indicated, as the POA, I don't feel comfortable sending her home due to her behaviors, I have talked to her on the phone, and am worried about how she will do at home. Daughter will not take her home until she can get into memory care, and does not feel comfortable staying with her due to her not getting along with her step dad. Let her know that if patient is medically stable per hospitalist, will have to be discharged, but will have hospitalist give her a call. Let Dr. Lyons know about conversation, and gave him her number. P:DCP to continue to follow. It is uncertain as of now if patient is medically ready for discharge as of yet. She has been mobilizing, but daughter is worried about he behaviors. Plan most likely will be home, unless daughter appeals discharge if patient is unable to do so. Daughter indicated that [facility] can accept her Friday, will need to confirm this. Fabiola Veliz RN/Logging Tractor Operator [place]
[2022-04-03 17:42] VITALS: BP 133/87; PULSE 86; RESP 16; TEMP 36.4; O2SAT 94
--- NOTE | 2022-04-03 19:52 | P.PN_ITS ---
Subjective Subjective Date Patient Seen: 04/03/22 Interval history: 81 F with PMH of ITP, admitted with possible encephalopathy, ITP flare, and EMILY. Largely improved with transfusion, but daughter states she is hallucinating. She is paranoid today, concerned about what nursing staff thinks of her, she is hesitant about our hospital and our lack of knowledge reportedly about ITP. Plt count did improve to 144 today after transfusion. Will need to watch further, along with encephalopathy. Exam Vital Signs (past 8 hours): - 04/03/22 14:03 Temperature 97.7 F Pulse Rate 92 H Respiratory Rate 16 Blood Pressure 146/89 H Pulse Oximetry 95 Oxygen Flow Rate 0 Oxygen Delivery Method Room Air Oxygen Flow Rate 0 Narrative Exam Narrative: Gen: Alert, oriented, thin and cachectic 81 y.o. ? female, NAD HEENT: normocephalic, atraumatic, conjunctiva clear, sclera non-icteric, oral mucosa pink and moist Neck: supple, full ROM, no JVD, trachea is midline Resp: Lungs CTA, non-labored breathing CV: RRR, no murmur or rubs Abd: soft, non-tender, normoactive BTs Skin: Thin and friable with multiple bruises on her upper extremities, appears dry w/poor turgor Neuro: Alert and oriented X 4 w/no focal deficits. Speech clear and coherent. Extremities: moves all 4 extremities, is ambulatory, negative Avery?s sign Psyche: normal mood and affect. Objective Labs 04/03/22 04:45 04/03/22 04:45 Labs: Laboratory Results - last 24 hr 04/03/22 04/03/22 04/03/22 04:45 04:45 04:45 WBC 10.9 RBC 3.62 L Hgb 11.4 L Hct 33.7 L MCV 92.9 MCH 31.6 MCHC 34.0 RDW 16.3 H Plt Count 144 L Neut % (Auto) 62.6 Lymph % (Auto) 25.4 Lyon % (Auto) 8.5 Eos % (Auto) 2.2 Baso % (Auto) 1.3 Neut # (Auto) 6800 Lymph # (Auto) 2800 Lyon # (Auto) 900 Eos # (Auto) 200 Baso # (Auto) 100 PT 11.5 INR 1.0 Sodium Potassium Chloride Carbon Dioxide BUN Creatinine Estimated GFR BUN/Creatinine Ratio Glucose Calcium Magnesium Total Bilirubin AST ALT Alkaline Phosphatase Total Protein Albumin Globulin Albumin/Globulin Ratio Prealbumin 18.6 04/03/22 04:45 WBC RBC Hgb Hct MCV MCH MCHC RDW Plt Count Neut % (Auto) Lymph % (Auto) Lyon % (Auto) Eos % (Auto) Baso % (Auto) Neut # (Auto) Lymph # (Auto) Lyon # (Auto) Eos # (Auto) Baso # (Auto) PT INR Sodium 135 L Potassium 3.6 Chloride 101 Carbon Dioxide 27 BUN 19 H Creatinine 0.80 Estimated GFR > 60 BUN/Creatinine Ratio 23.8 H Glucose 75 L Calcium 8.8 Magnesium 1.9 Total Bilirubin 0.8 AST 24 ALT 18 Alkaline Phosphatase 48 Total Protein 6.3 Albumin 3.4 L Globulin 2.9 Albumin/Globulin Ratio 1.2 Prealbumin [facility] Medical History Anxiety Atrial flutter Chronic steroid use History of ITP Hypertension Microscopic hematuria Osteoporosis Scoliosis Surgical History History of splenectomy History of tonsillectomy Status post hysterectomy Family History Father Cancer Mother Bleeding disorder Brother Brain cancer Social History marital status: household members: spouse lives independently: Yes Smoking Status: Former smoker alcohol intake: former Assessment & Plan Assessment & Plan narrative: 1. EMILY, likely from dehydration, present on admission * now resolved with fluids. 2. Immune thrombocytopenia, with a platlet count of 49 * continue to follow plt count, improved to 144 after transfusion * resumed home prednisone at 15 mg daily. 3. severe acute protein calorie malnutrition r/t decrease in appetite and ability to cook for self aeb 7.8% unintentional wt loss in 3 months (severe), BMI 19 (low for age), MNA 7 (malnourished), evidence of moderate muscle and fat wasting. 4. Acute metabolic encephalopathy with chronic dementia - SLUMS of 21, mild cognitive impairment - unclear if paranoia is acute or terminal gauger, patient does not report hallucinations at this time and has not been noticed with staff, though she is a bit confused and paranoid about staff here, mainly over concern for competence she states. - sodium is now normal, but may be worsened from recent hospitalization - no evidence of infectious process, CXR negative as well as UA. patient without any complaints. VTE Prophylaxis: Wells risk score 4.5 [X] Bilateral SCDs Pharmacological VTE prophylaxis contraindicated in the setting of ITP Dispo: Home vs memory care, depends on platelet trend after transfusion given yesterday. Code status: DNR/DNI as discussed with the patient who identifies her daughter, Estefany Snow as her surrogate and POA. VTE Deep Vein Thrombosis/Pulmonary Embolism Present on Admission: No MIPS - Admit I confirm the patient?s Advance Care Plan is present, Code status is documented, Surrogate decision maker is in patient?s record: Yes MIPS - DC The patient has current or prior documentation of left ventricular ejection fraction (LVEF) less than 40%, or moderate or severely depressed left ventricular systolic function.: No COVID-19 COVID-19 status: Negative Result date/Date tested (Pos, Neg/Pending): 04/02/22 Time Spent With Patient Critical Care time: I spent a total of [] minutes of critical care time on this patient's care today; this time is exclusive of procedural time. Quality VTE Deep Vein Thrombosis/Pulmonary Embolism Present on Admission: No
[2022-04-03] MEDS: polyethylene glycoL 3350 17 GM POWD.PACK PO (20:57)
[2022-04-03] MEDS: MELATONIN 3 MG TABLET PO (20:57)
[2022-04-03 22:00] VITALS: BP 161/106; PULSE 110; RESP 16; TEMP 36; O2SAT 96
[2022-04-04 01:45] VITALS: BP 145/86; PULSE 74; RESP 16; TEMP 36.1; O2SAT 98
[2022-04-04 05:48] VITALS: BP 143/79; PULSE 75; RESP 16; TEMP 36.1; O2SAT 96
[2022-04-04 07:39] LABS: Add Manual Diff / Slide Review NO; Basophils Absolute Auto 100 /uL (0-100); Basophils Percent Auto 1.4 % (0-2); Eosinophils Absolute Auto 300 /uL (0-450); Eosinophils Percent Auto 2.6 % (2-4); Hemoglobin 13.2 g/dL (12.0-16.0); Lymphocytes Absolute Auto 2400 /uL (1100-4500); Mean Corpuscular HGB Conc 33.8 % (30-36); Mean Corpuscular Hemoglobin 31.2 PG (26-34); Mean Corpuscular Volume 92.1 fL (80-100); Monocytes Absolute Auto 900 /uL (0-900); Monocytes Percent Auto 9.4 % (3-14); Neutrophils Absolute Auto 6200 /uL (1500-7000); Neutrophils Percent Auto 62.6 % (50-75); Platelet Count 139 X10^3/uL (150-400); Red Blood Cell Count 4.23 X10^6/uL (4.0-5.2); Red Cell Distribution Width 16.5 % (11.6-14.8); White Blood Cell Count 9.9 X10^3/uL (4.5-11.0)
[2022-04-04 07:47] LABS: Prothrombin Time 11.2 SECONDS (10.1-12.7)
[2022-04-04 07:52] LABS: Alanine Aminotransferase 21 IU/L (<35); Albumin Globulin Ratio 1.2 (1.0-2.8); Alkaline Phosphatase 53 U/L (38-126); Aspartate Aminotransferase 26 IU/L (14-36); BUN Creatinine Ratio 21.8 (6-22); Bilirubin Total 0.8 mg/dL (0.2-1.3); Blood Urea Nitrogen 17 mg/dL (7-17); Calcium 9.2 mg/dL (8.4-10.2); Carbon Dioxide 32 mmol/L (22-32); Chloride 96 mmol/L (98-107); Estimated Glomerular Filt Rate > 60 mL/min (>60); Globulin 3.3 g/dL (1.7-4.1); Glucose 78 mg/dL (80-110); HEMOLYSIS < 15 (0-50); Magnesium 1.9 mg/dL (1.6-2.3); Potassium 3.7 mmol/L (3.4-5.1); Sodium 134 mmol/L (137-145); Total Protein 7.3 g/dL (6.3-8.2)
[2022-04-04 08:00] VITALS: BP 152/89; PULSE 79; RESP 16; TEMP 36.4; O2SAT 96
[2022-04-04] MEDS: polyethylene glycoL 3350 17 GM POWD.PACK PO ×2 (08:38→19:50)
[2022-04-04] MEDS: lisinopriL 10 MG TABLET 30 MG PO (08:38)
[2022-04-04] MEDS: predniSONE 5 MG TABLET 15 MG PO (08:38)
--- NOTE | 2022-04-04 11:10 | CM.DPC ---
DCP: During IDT rounds this am Dr. Lyons stated that he will be contacting pt's daughter with regard to discharge anticipation for [facility] and [facility], in [address] is not accepting pt until tomorrow. This CM called Odalis Admissions at [facility] and discussed plan. Per Odalis, they are unable to accept pt until tomorrow and pt's daughter Brenda is present at [facility] in Odalis's office at this moment signing admission paperwork. Per Radha Jacobo, Daughter will be transporting pt tomorrow from to [facility]. This CM explained IMM paperwork via phone with right to appeal to Radha Jacobo over the phone as paperwork was reviewed with and given to patient on 04/02/2022. This CM explained that Dr. Lyons was going to contact pt's daughter and speak about discharge plan, and this CM would touch base with Pt daughter Brenda re. f/u discharge plan after that conversation with pt agreement. Lisa Elder, director wholesale
--- NOTE | 2022-04-04 15:11 | OT.IPNOTE ---
Pt up walking in the room and getting back to bed and states has already used the bathroom and brushed her teeth earlier and not wanting to do any OT at this time.
[2022-04-04 16:16] VITALS: BP 144/88; PULSE 97; RESP 16; TEMP 36.3; O2SAT 96
--- NOTE | 2022-04-04 16:41 | PT-IP ANOTE ---
Pt resting in bed when arrived. NUCLEAR MEDICINE TECHNICIAN discussed with patient she met her goals and mobilizing well. Pt stated wants to rest and save her platelet count, agreed is getting around without an AD without staff and doesn't need to continue to see PT. Pt has already completed long distance gait, stair mgt and standing balance activities steady. NUCLEAR MEDICINE TECHNICIAN confirmed with nursing and both nurse and pt agreed pt is ok to DC PT and return home when medically cleared. NUCLEAR MEDICINE TECHNICIAN discussed with supervising PT Karine pt has met goals. PT will complete DC tomorrow unless pt DC home.
[2022-04-04] MEDS: LORazepam 0.5 MG TABLET PO ×2 (17:32→19:51)
--- NOTE | 2022-04-04 18:17 | P.PN_ITS ---
Subjective Subjective Date Patient Seen: 04/04/22 Interval history: 81 F with PMH of ITP, admitted with possible encephalopathy, ITP flare, and EMILY. Largely improved with transfusion, but downtrending slightly again today. Will need to watch further, along with encephalopathy though this appears much improved. Exam Vital Signs (past 8 hours): - 04/04/22 16:16 Temperature 97.4 F L Pulse Rate 97 H Respiratory Rate 16 Blood Pressure 144/88 H Pulse Oximetry 96 Oxygen Flow Rate 0 Oxygen Delivery Method Room Air Oxygen Flow Rate 0 Narrative Exam Narrative: Gen: Alert, oriented, thin and cachectic 81 y.o. ? female, NAD HEENT: normocephalic, atraumatic, conjunctiva clear, sclera non-icteric, oral mucosa pink and moist Neck: supple, full ROM, no JVD, trachea is midline Resp: Lungs CTA, non-labored breathing CV: RRR, no murmur or rubs Abd: soft, non-tender, normoactive BTs Skin: Thin and friable with multiple bruises on her upper extremities, appears dry w/poor turgor Neuro: Alert and oriented X 4 w/no focal deficits. Speech clear and coherent. Extremities: moves all 4 extremities, is ambulatory, negative Avery?s sign Psyche: normal mood and affect. Objective Labs 04/04/22 07:15 04/04/22 07:15 Labs: Laboratory Results - last 24 hr 04/04/22 04/04/22 04/04/22 07:15 07:15 07:15 WBC 9.9 RBC 4.23 Hgb 13.2 Hct 39.0 MCV 92.1 MCH 31.2 MCHC 33.8 RDW 16.5 H Plt Count 139 L Neut % (Auto) 62.6 Lymph % (Auto) 24.0 L Sierra % (Auto) 9.4 Eos % (Auto) 2.6 Baso % (Auto) 1.4 Neut # (Auto) 6200 Lymph # (Auto) 2400 [place] # (Auto) 900 Eos # (Auto) 300 Baso # (Auto) 100 PT 11.2 INR 1.0 Sodium 134 L Potassium 3.7 Chloride 96 L Carbon Dioxide 32 BUN 17 Creatinine 0.78 Estimated GFR > 60 BUN/Creatinine Ratio 21.8 Glucose 78 L Calcium 9.2 Magnesium 1.9 Total Bilirubin 0.8 AST 26 ALT 21 Alkaline Phosphatase 53 Total Protein 7.3 Albumin 4.0 Globulin 3.3 Albumin/Globulin Ratio 1.2 PFSH Medical History Anxiety Atrial flutter Chronic steroid use History of ITP Hypertension Microscopic hematuria Osteoporosis Scoliosis Surgical History History of splenectomy History of tonsillectomy Status post hysterectomy Family History Father Cancer Mother Bleeding disorder Brother Brain cancer Social History marital status: household members: spouse lives independently: Yes Smoking Status: Former smoker alcohol intake: former Assessment & Plan Assessment & Plan narrative: 1. EMILY, likely from dehydration, present on admission * now resolved with fluids. 2. Immune thrombocytopenia, with a platlet count of 49 - continue to follow plt count, improved to 144 after transfusion slight decline to 139 today. - resumed home prednisone at 15 mg daily. 3. severe acute protein calorie malnutrition r/t decrease in appetite and ability to cook for self aeb 7.8% unintentional wt loss in 3 months (severe), BMI 19 (low for age), MNA 7 (malnourished), evidence of moderate muscle and fat wasting. 4. Acute metabolic encephalopathy with chronic dementia - SLUMS of 21, mild cognitive impairment - unclear if paranoia is acute or termite control service representative, patient does not report hallucinations at this time and has not been noticed with staff, but reported by daughter. though she is a bit confused and paranoid about staff here, mainly over concern for competence she states. She is a bit more alert this morning. - sodium is now normal, but mentation may be worsened from recent hospitalization - no evidence of infectious process, CXR negative as well as UA. patient without any complaints. VTE Prophylaxis: Wells risk score 4.5 [X] Bilateral SCDs Pharmacological VTE prophylaxis contraindicated in the setting of ITP Dispo: Memory care planned for tomorrow, if plt count remains stable and encephalopathy continues to improve. Code status: DNR/DNI as discussed with the patient who identifies her daughter, Estefany Snow as her surrogate and POA. VTE Deep Vein Thrombosis/Pulmonary Embolism Present on Admission: No MIPS - Admit I confirm the patient?s Advance Care Plan is present, Code status is documented, Surrogate decision maker is in patient?s record: Yes MIPS - DC The patient has current or prior documentation of left ventricular ejection fraction (LVEF) less than 40%, or moderate or severely depressed left ventricular systolic function.: No COVID-19 COVID-19 status: Negative Result date/Date tested (Pos, Neg/Pending): 04/02/22 Time Spent With Patient Critical Care time: I spent a total of [] minutes of critical care time on this patient's care today; this time is exclusive of procedural time. Quality VTE Deep Vein Thrombosis/Pulmonary Embolism Present on Admission: No
[2022-04-04] MEDS: MELATONIN 3 MG TABLET PO (19:51)
[2022-04-04 20:55] VITALS: BP 144/82; PULSE 77; RESP 16; TEMP 36; O2SAT 97
[2022-04-05 00:46] VITALS: BP 158/92; PULSE 70; RESP 16; TEMP 36.1; O2SAT 98
[2022-04-05 04:48] VITALS: BP 144/84; PULSE 78; RESP 16; TEMP 35.8; O2SAT 98
[2022-04-05 08:36] LABS: Add Manual Diff / Slide Review NO; Basophils Absolute Auto 100 /uL (0-100); Basophils Percent Auto 1.2 % (0-2); Eosinophils Absolute Auto 200 /uL (0-450); Eosinophils Percent Auto 2.3 % (2-4); Hematocrit 41.2 % (36-46); Hemoglobin 13.9 g/dL (12.0-16.0); Lymphocytes Absolute Auto 2700 /uL (1100-4500); Lymphocytes Percent Auto 25.7 % (25-40); Mean Corpuscular HGB Conc 33.8 % (30-36); Mean Corpuscular Hemoglobin 31.4 PG (26-34); Monocytes Absolute Auto 1100 /uL (0-900); Monocytes Percent Auto 10.2 % (3-14); Neutrophils Absolute Auto 6300 /uL (1500-7000); Neutrophils Percent Auto 60.6 % (50-75); Platelet Count 97 X10^3/uL (150-400); Red Blood Cell Count 4.43 X10^6/uL (4.0-5.2); Red Cell Distribution Width 16.5 % (11.6-14.8); White Blood Cell Count 10.4 X10^3/uL (4.5-11.0)
[2022-04-05] MEDS: lisinopriL 10 MG TABLET 30 MG PO (08:47)
[2022-04-05] MEDS: polyethylene glycoL 3350 17 GM POWD.PACK PO (08:47)
[2022-04-05] MEDS: predniSONE 5 MG TABLET 15 MG PO (08:48)
[2022-04-05 08:53] LABS: Alanine Aminotransferase 23 IU/L (<35); Albumin 4.4 g/dL (3.5-5.0); Albumin Globulin Ratio 1.2 (1.0-2.8); Alkaline Phosphatase 63 U/L (38-126); Aspartate Aminotransferase 29 IU/L (14-36); BUN Creatinine Ratio 23.7 (6-22); Blood Urea Nitrogen 18 mg/dL (7-17); Calcium 9.5 mg/dL (8.4-10.2); Carbon Dioxide 30 mmol/L (22-32); Chloride 95 mmol/L (98-107); Estimated Glomerular Filt Rate > 60 mL/min (>60); Globulin 3.6 g/dL (1.7-4.1); Glucose 80 mg/dL (80-110); HEMOLYSIS < 15 (0-50); Magnesium 1.9 mg/dL (1.6-2.3); Potassium 3.7 mmol/L (3.4-5.1); Sodium 133 mmol/L (137-145)
--- NOTE | 2022-04-05 09:19 | CM.DPC ---
DCP: This DCP spoke with pt's daughter this am who will be picking pt up to take her to [facility] in [place] at 1130 am this morning. Daughter expressed some concerns to this CM re. some things that [facility] admissions may need, to include a prescription for Prednisone and lisinopril. This CM assured pt's daughter, Lin that this CM would contact Odalis, corporate travel coordinator there and touch base with what they may need. This CM called and spoke with Brittany, Director who states that [facility] is out today. Brittany requested Updated diet order and to assure allergies are listed in paperwork. She also requested that hard scripts are sent for Prednisone and lisinopril so that their pharmacy could fill them as per pt's daughter, Lin, she does not have that medication to take with her to [facility]. This CM assured Brittany, Director that I would speak with the hospitalist, and attain scripts to assure pt gets her medication. Lisa Elder, vocational rehabilitation technician
[2022-04-05 09:22] VITALS: BP 137/81; PULSE 94; RESP 16; TEMP 36.3; O2SAT 98
--- NOTE | 2022-04-05 11:58 | PC.NURSE ---
Day shift: Paperwork signed and all questions answered. Pt has all personal belongings. scripts and [place] packet given to Pt's Daughter. Taken to car that Family is driving and Pt is going to a place called [employer] today. Left room via at approx 1200. THis automobile service writer is taking to that car.
--- NOTE | 2022-04-05 19:05 | P.DS_ITS ---
History of Present Illness History of Present Illness Chief complaint: weakness/nausea Narrative: Per H&P: Mayur Mahan is 81-year-old female nonsmoker with history of pulmonary embolism and infarction, chronic ITP, iron deficiency anemia, thrombocytopenia, recent hospitalization for severe hyponatremia, hallucinations and delusions.? She had been admitted at [facility] for about 1 week and was discharged yesterday home.? She apparently has been profoundly weak, perhaps even worse and had a fall yesterday but is confused about the details of this fall. It is actually unclear she did fall but is altered from her baseline without focal neurologic findings.? She is had poor appetite.? She denies any blurred vision or trouble with speech.? She denies any fever or chills, chest pain or shortness of breath. She states her blood pressure has not been managed well, she has had to go the the ED a couple of times for this. She states she always receives IVIG when her platelets drop and states most of her interactions with her data collection associate is through his nurses. She states Dr. Yanez does not want to treat me anymore. She stated he ordered dexamethasone for her and if we gave her this, I would walk out. She denies any pain, she states her bruising on her arm is from her ITP and that nothing is getting done for this. She states she lives at home with her who is 87 and has to hire out help in caring for him. Imaging studies including Chest xray, C-spine CT, head CT and renal ultrasound were all unremarkable with no acute findings. She presented with a platelet count of 59, then increased to 64 and is now 49, she has a mildly elevated WBC of 12.9, initial creatinine was 3.07, with IV hydration is now 1.55, eGFR from 15 to 33 now. Troponin was initially .0119, now trending downward to 0.059, likely due to her EMILY.? COVID-19 PCR was negative. Reviewed inpatient admission records at [facility]. She was discharged from [facility] yesterday after being admitted for severe hyponatremia on 03/25/21. When she was admitted, she was completing a course of oral antibiotics for a UTI. She was seen by nephrology and their differential included SIADH versus primary polydypsia versus adrenal insufficiency or a medication adverse effect. She was treated with fluid restriction and 1 dose of hypertonic solution and corrected from 120 to 130 very quickly and started on oral torsemide with instructions to follow up with the Nephrology clinic a week after discharge. Her UTI treatment was completed with IV cefepime. Discharge Providers Provider Date of admission: 04/02/22 02:45 Discharge Date: 04/05/22 Primary care physician: Henny Dinh PA-C Consults: 04/02/22 03:09 Consult to Physician Routine Comment: Consulting Provider: Silvano Yanez Reason for consultation: ITP, scheduled in office 04/04, she is admitted Has provider been notified: No 04/02/22 03:32 Consult to Occupational Therapy Evaluate & Treat Comment: cog eval Physician Instructions: Evaluate and treat Consult to Physical Therapy Evaluate & Treat Comment: Home safety, Physician Instructions: Evaluate and Treat Consult to [employer] Practitioner Routine Comment: d/c'd from [facility] on 03/31, supposed to go to rehab Discharge provider: Alyx Ling MD Summary Hospital Course Discharge Diagnosis: EMILY, likely d/t dehydration ITP w/platelet count of 49 Severe acute PCM Acute metabolic encephalopathy in setting of chronic dementia with moderate cognitive impairment [facility] Hospital Course: 81-year-old female with previous history of chronic steroid dependent ITP, iron deficiency anemia, prior pulmonary emboli and pulmonary infarct who was recently admitted to [facility] for approximately 1 week with severe hyponatremia and UTI. She was discharged from [facility] on April 01 and admitted to our facility on April 02. At the time of admission she had a platelet count of 49. Patient was admitted with EMILY. Eliquis was held. She received 6 units of platelets. Platelet count 144 and was stable at 139 the following day. As expected with ITP it has continued to decline in his 89 on the date of discharge. On April 03 patient's daughter was concerned about potential hallucination. This was not observed by hospital staff. However her discharge was delayed. Urinalysis, CT and chest x-ray were negative. No evidence of infection. Patient was accepted to the [facility] living [facility] in [place], [place] on the date of discharge. Patient's daughter transported her to the facility. Patient is discharged in stable condition. No evidence of active bleeding. She is encouraged to follow- up with her regular data collection associate or to establish care with a new data collection associate in the [place] area. Status at Discharge Cognitive/behavioral status at discharge: at baseline, oriented Overall status at discharge: patient is progressing back to baseline Time Spent with Patient Time spent: Greater than 30 minutes Exam Vital Signs (past 8 hours): Oxygen Delivery Method Room Air Oxygen Flow Rate 0 Narrative Exam Narrative: GEN: Alert and oriented x 2-3, NAD HEENT:NC, Face symmetric CHEST: Respiratory excursions symmetric, CTAB CV: RRR, no M/R/G ABD: Soft, NT/ND, BT present in all 4 quadrants, no organomegaly or masses EXTR: warm, well perfused, no C/C/E SKIN: warm and dry, no rash, scattered bruises to the forearm NEURO: Alert and oriented x 3, nonfocal Objective Labs 04/05/22 07:52 04/05/22 07:52 Labs: Laboratory Results - last 24 hr 04/05/22 04/05/22 04/05/22 07:52 07:52 07:52 WBC 10.4 RBC 4.43 Hgb 13.9 Hct 41.2 MCV 93.0 MCH 31.4 MCHC 33.8 RDW 16.5 H Plt Count 97 L Neut % (Auto) 60.6 Lymph % (Auto) 25.7 Treasure % (Auto) 10.2 Eos % (Auto) 2.3 Baso % (Auto) 1.2 Neut # (Auto) 6300 Lymph # (Auto) 2700 Treasure # (Auto) 1100 H Eos # (Auto) 200 Baso # (Auto) 100 PT 11.0 INR 1.0 Sodium 133 L Potassium 3.7 Chloride 95 L Carbon Dioxide 30 BUN 18 H Creatinine 0.76 Estimated GFR > 60 BUN/Creatinine Ratio 23.7 H Glucose 80 Calcium 9.5 Magnesium 1.9 Total Bilirubin 1.0 AST 29 ALT 23 Alkaline Phosphatase 63 Total Protein 8.0 Albumin 4.4 Globulin 3.6 Albumin/Globulin Ratio 1.2 [facility] Medical History Anxiety Atrial flutter Chronic steroid use History of ITP Hypertension Microscopic hematuria Osteoporosis Scoliosis Surgical History History of splenectomy History of tonsillectomy Status post hysterectomy Family History Father Cancer Mother Bleeding disorder Brother Brain cancer Social History marital status: household members: spouse lives independently: Yes Smoking Status: Former smoker alcohol intake: former Discharge Plan Discharge Plan Patient Disposition: Assisted Living Other facility: [facility] Under care of provider: Facility MD Provider Discharge Comment: Your platelet count at the time of discharge is 97,000. Please follow-up with your data collection associate or establish with a new one in the [facility] for ongoing care. Discharge orders & Medications Discharge Orders: Discharge (Order); Ordered 04/05/22 Ordered By: Alyx Ling Prescriptions: New melatonin 3 mg Tablet 3 mg PO BEDTIME Qty: 30 0RF pantoprazole 20 mg Tablet,Delayed Release (Dr/Ec) 20 mg PO 0600 Qty: 30 0RF Continued polyethylene glycol 3350 [Miralax] 17 GM powder in packet 17 gm PO BEDTIME PRN (Reason: Constipation) Qty: 0 conjugated estrogens 0.625 mg/gram cream 0.625 mg vaginal 2XW Qty: 30 3RF Rx Instructions: Apply 1g to vagina 2x weekly, including urethra. multivitamin Tablet 1 tab PO DAILY vitamin B complex Tablet 1 tab PO DAILY cholecalciferol (vitamin D3) [Vitamin D3] 50 mcg (2,000 unit) Capsule 50 mcg PO DAILY vitamin H15-[id number] acid 0.5-1 mg Tablet 1 tab PO DAILY aminocaproic acid [Amicar] 500 mg Tablet 2 g PO QID PRN (Reason: Bleeding) Qty: 32 0RF Rx Instructions: take as needed when bleeding occurs lorazepam 0.5 mg tablet 0.5 mg PO BEDTIME Qty: 30 0RF Rx Instructions: take by mouth once daily at bedtime prednisone 5 mg Tablet 15 mg PO DIRECTED Qty: 90 2RF Rx Instructions: Take 3 tablets (15mg) once daily by mouth. lisinopril 30 mg tablet 30 mg PO DAILY Qty: 30 0RF Follow up/Referrals: Henny Dinh PA-C [Primary Care Provider] - Discharge Health Status Multidrug resistant organism: No MDRO Precautions: Purvis Diet/Activity/Treatments Diet: Regular Liquid consistency: Normal/Thin Food texture: Regular Activity: As tolerated Oxygen: N/A Visit Report/Discharge Packet Instructions: DI for Immune Thrombocytopenic [place] Stand Alone Forms: Patient Portal/API Discharge Data Primary Care Provider: Henny Dinh VTE Deep Vein Thrombosis/Pulmonary Embolism Present on Admission: No
== END 2022-04-05 12:00 | DRG 813 ==
LOC: ED 23:56 → AC 04-02 09:27
PROVIDERS: Emergency Medicine; Internal Medicine; Neuromusculoskeletal Medicine, Sports Medicine; Admitting Provider Nurse Practitioner Family; Emergency Provider Emergency Medicine; Family Provider Physician Assistant; PCP Physician Assistant; Visit Provider Nurse Practitioner Family
DX: D69.3 Immune thrombocytopenic purpura (principal); E43 Unspecified severe protein-calorie malnutrition; G93.41 Metabolic encephalopathy; I26.93 Single subsegmental thrombotic pulmonary embolism without acute cor pulmonale; N17.9 Acute kidney failure, unspecified; Z68.1 Body mass index [BMI] 19.9 or less, adult; E86.0 Dehydration; F03.90 Unspecified dementia, unspecified severity, without behavioral disturbance, psychotic disturbance, mood disturbance, and anxiety; I10 Essential (primary) hypertension; Z20.822 Contact with and (suspected) exposure to COVID-19; Z66 Do not resuscitate; Z87.891 Personal history of nicotine dependence; D69.6 Thrombocytopenia, unspecified; D50.9 Iron deficiency anemia, unspecified
CPT/HCPCS: 36415; 36430; 70450; 71045; 72125; 76770; 80048; 80053; 81001; 82550; 82570; 83605; 83690; 83735; 83880; 84134; 84145; 84300; 84484; 85025; 85610; 86900; 86901; 86945; 87040; 87635; 93005; 97110; 97116; 97162; 97166; 99284; C9803; P9035

== ENCOUNTER → 2022-11-24 12:47 | Outpatient (CLI) | payer MEDICARE, OTHER, SELFPAY ==
[2022-04-02 04:28] VITALS: BMI 19.0
== END ==
PROVIDERS: Family Provider Physician Assistant; PCP Physician Assistant; Visit Provider Registered Nurse
DX: R10.9 Unspecified abdominal pain (principal)
CPT/HCPCS: 87077; 87086; 87186

== ENCOUNTER 2022-11-29 15:20 | Emergency (ER) | payer MEDICARE, OTHER, SELFPAY ==
[2022-04-02 04:28] VITALS: BMI 19.0
[2022-11-29] VITALS (7 sets, daily range): BP systolic 133–174; BP diastolic 71–83; PULSE 76–99; RESP 18–25; TEMP 36.7; O2SAT 93–96; BMI 18.8
--- NOTE | 2022-11-29 15:33 | DI.RAD.S_ITS ---
PROCEDURE: XR CHEST 1V INDICATIONS: chest pain TECHNIQUE: One view of the chest was acquired. COMPARISON: [facility], CR, XR CHEST 1V, 04/01/2022, 16:35. [facility], CR, XR CHEST 1V, 03/14/2022, 7:37. FINDINGS: Surgical changes and devices: None. Lungs and pleura: Lungs are clear. No pleural effusions or pneumothorax. Mediastinum: Mediastinal contours appear normal. Heart size is normal. Bones and chest wall: No suspicious bony lesions. Scoliotic curvature of the spine is redemonstrated. Overlying soft tissues appear unremarkable. IMPRESSION: No acute cardiopulmonary process. Dictated by: Jos Tyler M.D. on 11/29/2022 at 16:12 Approved by: Jos Tyler M.D. on 11/29/2022 at 16:13
--- NOTE | 2022-11-29 15:41 | ED.CHESTPAIN ---
HPI - Chest Pain General Chief Complaint: Chest Pain Stated Complaint: ITP Time Seen by Provider: 11/29/22 15:34 Source: patient Mode of arrival: Ambulatory Limitations: no limitations History of Present Illness HPI narrative: Patient 82-year-old female history of ITP, current thrombosis and right leg on Eliquis 2.5 mg recently admitted to [facility] and discharged yesterday on Keflex for a UTI presents today with left-sided chest pain. She reports that 1 week ago she leaned over in her car and landed on the gear shift. She reports that she told [facility] about this. She has a history of a splenectomy. She says that it was imaged she is unsure how it was imaged she is having some memory problems which is normal for her she recognizes this. It is unclear exactly why she is here. She was found to have UTI at discharge given a prescription for Keflex and they called her and told her not to take the Keflex I wrote her a different prescription she has not yet picked up. She does have some frequent urination. No other symptoms Related Data Home Medications Medication Instructions Recorded Confirmed polyethylene glycol 3350 17 gram 17 gm PO BEDTIME PRN Constipation 05/26/17 04/02/22 oral powder packet (Miralax) ##0 cholecalciferol (vitamin D3) 50 50 mcg PO DAILY 02/08/20 04/02/22 mcg (2,000 unit) capsule (Vitamin D3) multivitamin 1 tab PO DAILY 02/08/20 04/02/22 vitamin B complex 1 tab PO DAILY 02/08/20 04/02/22 vitamin B12 0.5 mg-folic acid 1 mg 1 tab PO DAILY 04/05/20 04/02/22 tablet Previous Rx's Medication Instructions Recorded conjugated estrogens 0.625 mg/gram 0.625 mg vaginal 2XW uretheral 07/14/20 vaginal cream caruncle #30 grams aminocaproic acid 500 mg tablet 2 g (4 x 500 mg) PO QID PRN 10/30/21 (Amicar) Bleeding #32 tabs lisinopril 30 mg tablet 30 mg PO DAILY #30 tabs 04/05/22 lorazepam 0.5 mg tablet 0.5 mg PO BEDTIME #30 tabs 04/05/22 melatonin 3 mg tablet 3 mg PO BEDTIME #30 tabs 04/05/22 pantoprazole 20 mg tablet,delayed 20 mg PO 0600 #30 tabs 04/05/22 release prednisone 5 mg tablet 15 mg (3 x 5 mg) PO DIRECTED 04/05/22 #90 tabs phenazopyridine 100 mg tablet 100 mg PO TID PRN pain 6 doses #6 11/24/22 (Pyridium) tabs ciprofloxacin HCl 250 mg tablet 250 mg PO Q12H 5 days #10 tabs 11/26/22 Allergies Allergy/AdvReac Type Severity Reaction Status Date / Time latex Allergy Mild LOCAL RASH Verified 11/29/22 15:33 Penicillins Allergy Mild CHILDHOOD Verified 11/29/22 15:33 Sulfa (Sulfonamide Allergy Mild SOMETHING Verified 11/29/22 15:33 Antibiotics) TO DO WITH BLADDER OR KIDNEY'S?? azithromycin Allergy Verified 11/29/22 15:33 iodine AdvReac Intermediate RAPID Verified 11/29/22 15:33 HEART RATE (IV CONTRAST) Review of Systems Review of Systems ROS Unobtainable: All systems reviewed & are unremarkable except as noted in HPI and below Patient History Medical History (Updated 11/29/22 @ 17:17 by Precious Cox DO) Chronic steroid use Microscopic hematuria Scoliosis Anxiety Osteoporosis Atrial flutter Hypertension History of ITP Surgical History History of splenectomy Status post hysterectomy History of tonsillectomy Family History Father Cancer Mother Bleeding disorder Brother Brain cancer Social History marital status: household members: spouse lives independently: Yes Smoking Status: Former smoker alcohol intake: former Smoking Status: Former smoker alcohol intake frequency: holidays/special occasions only Substance Use Type: does not use Exam Initial Vital Signs Initial Vital Signs: Vital Signs Temperature 98.1 F 11/29/22 15:23 Pulse Rate 99 H 11/29/22 15:23 Respiratory Rate 18 11/29/22 15:23 Blood Pressure 174/83 H 11/29/22 15:23 Pulse Oximetry 96 11/29/22 15:23 Oxygen Delivery Method Room Air 11/29/22 15:23 GENERAL: Alert pleasant well-appearing 82-year-old HEENT: Head atraumatic,EOMI, pupils reactive, face symmetric, moist mucous membranes CARDIOVASCULAR: Regular rate and rhythm without murmurs, rubs or gallops. RESPIRATORY: Breath sounds equal bilaterally, no wheezes rales or rhonchi. ABDOMEN: Soft, nontender. Normoactive bowel sounds all 4 quadrants. No guarding or rebound. EXTREMITIES: Normal range of motion, no clubbing or edema. Neurovascularly intact NEUROLOGICAL: Alert and oriented x4. SKIN: Warm, dry, no laceration, no petechiae, no rashes or lesions. Left arm some mild bruising no obvious petechiae I Course Orders Ordered: ED Orders 11/29/22 15:33 XR chest 1V Stat 11/29/22 15:40 EKG-12 Lead Stat 11/29/22 15:50 Complete Blood Count AUTO DIFF Stat Comprehensive Metabolic Panel Stat Lipase Stat Magnesium Stat PTT Partial Thromboplastin Nelson Stat Prothrombin Time INR Stat Troponin & CK Cardiac Panel Stat Discontinued Medications Aspirin (Aspirin 81 Mg Chew Tab) 324 mg PO NOW ONE Stop: 11/29/22 15:34 Last Admin: 11/29/22 16:00 Dose: Not Given Documented By: RB Vital Signs Vital signs: Vital Signs - 8 hr 11/29/22 15:23 11/29/22 15:43 11/29/22 15:44 Temperature 98.1 F Pulse Rate 99 H 91 H Respiratory Rate 18 23 Blood Pressure 174/83 H 145/78 H Pulse Oximetry 96 94 Oxygen Delivery Method Room Air Room Air 11/29/22 15:44 11/29/22 16:00 11/29/22 16:01 Temperature Pulse Rate 91 H 87 Respiratory Rate 25 H 21 Blood Pressure 134/82 Pulse Oximetry 94 93 Oxygen Delivery Method Room Air 11/29/22 16:01 11/29/22 16:30 11/29/22 16:30 Temperature Pulse Rate 87 79 Respiratory Rate 18 19 Blood Pressure 133/71 Pulse Oximetry 93 93 Oxygen Delivery Method 11/29/22 17:00 11/29/22 17:00 Temperature Pulse Rate 76 Respiratory Rate 18 Blood Pressure 148/77 H Pulse Oximetry 95 Oxygen Delivery Method Room Air MDM - Chest Pain Lab Data 11/29/22 15:50 11/29/22 15:50 Labs: Lab Results 11/29/22 Range/Units 15:50 WBC 20.3 H (4.5-11.0) X10^3/uL RBC 4.19 (4.0-5.2) X10^6/uL Hgb 12.9 (12.0-16.0) g/dL Hct 39.0 (36-46) % MCV 93.0 (80-100) fL MCH 30.9 (26-34) PG MCHC 33.2 (30-36) % RDW 15.7 H (11.6-14.8) % Plt Count 189 (150-400) X10^3/uL Neut % (Auto) 87.6 H (50-75) % Lymph % (Auto) 4.7 L (25-40) % Borden % (Auto) 6.6 (3-14) % Eos % (Auto) 0.5 L (2-4) % Baso % (Auto) 0.6 (0-2) % Neut # (Auto) 04799 H (6421-9439) /uL Lymph # (Auto) 1000 L (5042-5553) /uL Borden # (Auto) 1300 H (0-900) /uL Eos # (Auto) 100 (0-450) /uL Baso # (Auto) 100 (0-100) /uL PT 10.6 (10.1-12.7) SECONDS INR 0.9 (0.9-1.3) APTT 28 (26-36) SECONDS Sodium 135 L (137-145) mmol/L Potassium 4.5 (3.4-5.1) mmol/L Chloride 100 (98-107) mmol/L Carbon Dioxide 27 (22-32) mmol/L BUN 39 H (7-17) mg/dL Creatinine 1.11 H (0.52-1.04) mg/dL Estimated GFR 50 L (>60) mL/min BUN/Creatinine Ratio 35.1 H (6-22) Glucose 104 (80-110) mg/dL Calcium 10.0 (8.4-10.2) mg/dL Magnesium 2.4 H (1.6-2.3) mg/dL Total Bilirubin 0.5 (0.2-1.3) mg/dL AST 28 (14-36) IU/L ALT 28 (<35) IU/L Alkaline Phosphatase 61 (38-126) U/L Total Creatine Kinase 45 (30-135) U/L Troponin I 0.030 (0.01-0.034) ng/mL Total Protein 6.7 (6.3-8.2) g/dL Albumin 4.3 (3.5-5.0) g/dL Globulin 2.4 (1.7-4.1) g/dL Albumin/Globulin Ratio 1.8 (1.0-2.8) Lipase 153 (23-300) U/L Imaging Data Chest x-ray: Radiologist's Impression: PROCEDURE: XR CHEST 1V INDICATIONS: chest pain TECHNIQUE: One view of the chest was acquired. COMPARISON: [facility], CR, XR CHEST 1V, 04/01/2022, 16:35. [facility], CR, XR CHEST 1V, 03/14/2022, 7:37. FINDINGS: Surgical changes and devices: None. Lungs and pleura: Lungs are clear. No pleural effusions or pneumothorax. Mediastinum: Mediastinal contours appear normal. Heart size is normal. Bones and chest wall: No suspicious bony lesions. Scoliotic curvature of the spine is redemonstrated. Overlying soft tissues appear unremarkable. IMPRESSION: No acute cardiopulmonary process. Dictated by: Jos Tyler M.D. on 11/29/2022 at 16:12 ECG Data Interpretation: Normal sinus rhythm rate 91 KS interval 132 QRS [address] changes no T-wave inversions MDM Narrative Medical decision making narrative: Patient 82-year-old female history of ITP recent admission and diagnosis of UTI. Records have been requested but not yet received. Patient is not thrombocytopenic today she has platelets of 189. She is found to have leukocytosis of 20 is unclear what her WBC count was previously. She is not septic she is afebrile without hypotension or tachycardia. She already has a prescription for an appropriate antibiotic that she needs to merchandise pickup/receiving associate. She has mild tenderness in her left upper quadrant without a spleen there is no obvious bruising. Chest x-ray was negative without pneumothorax or obvious rib fracture. Unlikely to be intra-abdominal bleeding after 1 week. Discharge Plan Departure Patient Disposition: Home Clinical Impression: Chest wall pain Instructions: DI for Rib Contusion Activity Restrictions/Additional Instructions: *You have been diagnosed with left rib contusion *What to do: At this time try heating pad and ice use pillow to help splint as needed. Please go to the pharmacy and merchandise pickup/receiving associate your prescribed antibiotic for your bladder infection. *Continue to take medications as directed Tylenol 650 mg every 4-6 hours if needed for [id number] pain *Follow up with your primary care provider in 2-3 days or call [phone] *Return to ER if you should have increasing pain confusion bleeding or any new, worsening or concerning symptoms Prescriptions: No Action phenazopyridine [Pyridium] 100 mg tablet 100 mg PO TID PRN (Reason: pain) Qty: 6 0RF polyethylene glycol 3350 [Miralax] 17 GM powder in packet 17 gm PO BEDTIME PRN (Reason: Constipation) Qty: 0 ciprofloxacin HCl 250 mg tablet 250 mg PO Q12H 5 Days Qty: 10 0RF conjugated estrogens 0.625 mg/gram cream 0.625 mg vaginal 2XW Qty: 30 3RF Rx Instructions: Apply 1g to vagina 2x weekly, including urethra. multivitamin Tablet 1 tab PO DAILY vitamin B complex Tablet 1 tab PO DAILY cholecalciferol (vitamin D3) [Vitamin D3] 50 mcg (2,000 unit) Capsule 50 mcg PO DAILY vitamin W05-govdc acid 0.5-1 mg Tablet 1 tab PO DAILY aminocaproic acid [Amicar] 500 mg Tablet 2 g PO QID PRN (Reason: Bleeding) Qty: 32 0RF Rx Instructions: take as needed when bleeding occurs melatonin 3 mg Tablet 3 mg PO BEDTIME Qty: 30 0RF pantoprazole 20 mg Tablet,Delayed Release (Dr/Ec) 20 mg PO 0600 Qty: 30 0RF lorazepam 0.5 mg tablet 0.5 mg PO BEDTIME Qty: 30 0RF Rx Instructions: take by mouth once daily at bedtime prednisone 5 mg Tablet 15 mg PO DIRECTED Qty: 90 2RF Rx Instructions: Take 3 tablets (15mg) once daily by mouth. lisinopril 30 mg tablet 30 mg PO DAILY Qty: 30 0RF Referrals: Henny Dinh PA-C [Primary Care Provider] - Stand Alone Forms: Patient Portal/API
[2022-11-29 16:00] LABS: Add Manual Diff / Slide Review NO; Basophils Absolute Auto 100 /uL (0-100); Basophils Percent Auto 0.6 % (0-2); Eosinophils Absolute Auto 100 /uL (0-450); Eosinophils Percent Auto 0.5 % (2-4); Hemoglobin 12.9 g/dL (12.0-16.0); Lymphocytes Absolute Auto 1000 /uL (1100-4500); Lymphocytes Percent Auto 4.7 % (25-40); Mean Corpuscular HGB Conc 33.2 % (30-36); Mean Corpuscular Hemoglobin 30.9 PG (26-34); Monocytes Absolute Auto 1300 /uL (0-900); Monocytes Percent Auto 6.6 % (3-14); Neutrophils Absolute Auto 17800 /uL (1500-7000); Neutrophils Percent Auto 87.6 % (50-75); Platelet Count 189 X10^3/uL (150-400); Red Blood Cell Count 4.19 X10^6/uL (4.0-5.2); Red Cell Distribution Width 15.7 % (11.6-14.8); White Blood Cell Count 20.3 X10^3/uL (4.5-11.0)
[2022-11-29 16:06] LABS: INR 0.9 (0.9-1.3); Prothrombin Time 10.6 SECONDS (10.1-12.7)
[2022-11-29 16:08] LABS: PTT Partial Thromboplastin Tim 28 SECONDS (26-36)
[2022-11-29 16:09] LABS: Alanine Aminotransferase 28 IU/L (<35); Albumin 4.3 g/dL (3.5-5.0); Albumin Globulin Ratio 1.8 (1.0-2.8); Alkaline Phosphatase 61 U/L (38-126); Aspartate Aminotransferase 28 IU/L (14-36); BUN Creatinine Ratio 35.1 (6-22); Bilirubin Total 0.5 mg/dL (0.2-1.3); Blood Urea Nitrogen 39 mg/dL (7-17); Carbon Dioxide 27 mmol/L (22-32); Chloride 100 mmol/L (98-107); Creatine Kinase 45 U/L (30-135); Estimated Glomerular Filt Rate 50 mL/min (>60); Globulin 2.4 g/dL (1.7-4.1); Glucose 104 mg/dL (80-110); HEMOLYSIS < 15 (0-50); Lipase 153 U/L (23-300); Magnesium 2.4 mg/dL (1.6-2.3); Potassium 4.5 mmol/L (3.4-5.1); Sodium 135 mmol/L (137-145); Total Protein 6.7 g/dL (6.3-8.2)
--- NOTE | 2022-11-30 17:50 | PC.NURSE ---
Pt called requesting what her platelets were yesterday. Given results.
== END 2022-11-29 17:32 | disposition home or self-care (01) ==
PROVIDERS: Emergency Provider Emergency Medicine; Family Provider Physician Assistant; PCP Physician Assistant
DX: R07.89 Other chest pain (principal); R10.12 Left upper quadrant pain
CPT/HCPCS: 36415; 71045; 80053; 82550; 83690; 83735; 84484; 85025; 85610; 85730; 93005; 93010; 99283; 99284

== ENCOUNTER → 2022-12-20 14:34 | Outpatient (CLI) | payer MEDICARE, OTHER, SELFPAY ==
[2022-04-02 04:28] VITALS: BMI 19.0
[2022-12-20 15:18] LABS: Add Manual Diff / Slide Review NO; Basophils Absolute Auto 0 /uL (0-100); Basophils Percent Auto 0.4 % (0-2); Eosinophils Absolute Auto 0 /uL (0-450); Eosinophils Percent Auto 0.1 % (2-4); Hematocrit 38.5 % (36-46); Hemoglobin 12.9 g/dL (12.0-16.0); Lymphocytes Absolute Auto 1100 /uL (1100-4500); Mean Corpuscular HGB Conc 33.5 % (30-36); Mean Corpuscular Hemoglobin 30.7 PG (26-34); Mean Corpuscular Volume 91.7 fL (80-100); Monocytes Absolute Auto 600 /uL (0-900); Neutrophils Absolute Auto 10500 /uL (1500-7000); Neutrophils Percent Auto 85.5 % (50-75); Platelet Count 84 X10^3/uL (150-400); Red Cell Distribution Width 15.7 % (11.6-14.8); White Blood Cell Count 12.3 X10^3/uL (4.5-11.0)
[2022-12-20 15:57] LABS: Alanine Aminotransferase 28 IU/L (<35); Albumin 4.3 g/dL (3.5-5.0); Albumin Globulin Ratio 1.9 (1.0-2.8); Alkaline Phosphatase 52 U/L (38-126); Aspartate Aminotransferase 25 IU/L (14-36); BUN Creatinine Ratio 31.9 (6-22); Bilirubin Total 0.7 mg/dL (0.2-1.3); Blood Urea Nitrogen 30 mg/dL (7-17); Calcium 9.8 mg/dL (8.4-10.2); Carbon Dioxide 26 mmol/L (22-32); Chloride 97 mmol/L (98-107); Estimated Glomerular Filt Rate > 60 mL/min (>60); Globulin 2.3 g/dL (1.7-4.1); Glucose 100 mg/dL (80-110); HEMOLYSIS 24 (0-50); Potassium 4.3 mmol/L (3.4-5.1); Sodium 131 mmol/L (137-145); Total Protein 6.6 g/dL (6.3-8.2)
== END ==
PROVIDERS: Family Provider Physician Assistant; PCP Physician Assistant; Referring Provider Family Medicine; Visit Provider Family Medicine
DX: D69.3 Immune thrombocytopenic purpura (principal); I27.20 Pulmonary hypertension, unspecified; I10 Essential (primary) hypertension
CPT/HCPCS: 36415; 80053; 85025

== ENCOUNTER → 2023-01-06 12:47 | Outpatient (CLI) | payer MEDICARE, OTHER, SELFPAY ==
[2022-04-02 04:28] VITALS: BMI 19.0
[2023-01-06 13:05] LABS: Add Manual Diff / Slide Review NO; Basophils Absolute Auto 100 /uL (0-100); Basophils Percent Auto 0.7 % (0-2); Eosinophils Absolute Auto 0 /uL (0-450); Eosinophils Percent Auto 0.1 % (2-4); Hematocrit 39.8 % (36-46); Hemoglobin 13.3 g/dL (12.0-16.0); Lymphocytes Absolute Auto 1300 /uL (1100-4500); Lymphocytes Percent Auto 6.6 % (25-40); Mean Corpuscular HGB Conc 33.4 % (30-36); Mean Corpuscular Hemoglobin 30.6 PG (26-34); Mean Corpuscular Volume 91.4 fL (80-100); Monocytes Absolute Auto 700 /uL (0-900); Monocytes Percent Auto 3.5 % (3-14); Neutrophils Absolute Auto 17900 /uL (1500-7000); Neutrophils Percent Auto 89.1 % (50-75); Platelet Count 100 X10^3/uL (150-400); Red Blood Cell Count 4.36 X10^6/uL (4.0-5.2); Red Cell Distribution Width 15.1 % (11.6-14.8); White Blood Cell Count 20.1 X10^3/uL (4.5-11.0)
== END ==
PROVIDERS: Family Provider Physician Assistant; PCP Physician Assistant; Referring Provider Family Medicine; Visit Provider Family Medicine
DX: N17.9 Acute kidney failure, unspecified (principal); I50.32 Chronic diastolic (congestive) heart failure; D69.3 Immune thrombocytopenic purpura
CPT/HCPCS: 36415; 85025

== ENCOUNTER 2023-01-07 18:26 | Emergency (ER) | payer MEDICARE, OTHER, SELFPAY ==
[2022-04-02 04:28] VITALS: BMI 19.0
[2023-01-07 18:28] VITALS: BP 143/84; PULSE 85; RESP 18; TEMP 36.6; O2SAT 97; BMI 18.9
--- NOTE | 2023-01-07 18:37 | ED_ITS ---
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 She was seen at [facility] ER on 01/04 with a hematoma to the posterior left calf that was concerning for infection, she was started on Keflex. She notes that frequently with stressors to her body such as infections her platelets will drop. Over the last 24-48 hours she is having increasing purpura over the lower extremities, can taste blood in her mouth all consistent with her platelets falling. She is been mildly nauseated but no vomiting. Has not noticed any blood her stools. She states that her chest feels tight but this is a chronic feeling for her. She denies fevers or palpitations. She is not complaining of dyspnea or orthopnea Related Data Home Medications Medication Instructions Recorded Confirmed polyethylene glycol 3350 17 gram 17 gm PO BEDTIME PRN Constipation 05/26/17 01/01/23 oral powder packet (Miralax) ##0 cholecalciferol (vitamin D3) 50 50 mcg PO DAILY 02/08/20 01/01/23 mcg (2,000 unit) capsule (Vitamin D3) multivitamin 1 tab PO DAILY 02/08/20 01/01/23 vitamin B complex 1 tab PO DAILY 02/08/20 01/01/23 vitamin B12 0.5 mg-folic acid 1 mg 1 tab PO DAILY 04/05/20 01/01/23 tablet Previous Rx's Medication Instructions Recorded conjugated estrogens 0.625 mg/gram 0.625 mg vaginal 2XW uretheral 07/14/20 vaginal cream caruncle #30 grams aminocaproic acid 500 mg tablet 2 g (4 x 500 mg) PO QID PRN 10/30/21 (Amicar) Bleeding #32 tabs lisinopril 30 mg tablet 30 mg PO DAILY #30 tabs 04/05/22 lorazepam 0.5 mg tablet 0.5 mg PO BEDTIME #30 tabs 04/05/22 melatonin 3 mg tablet 3 mg PO BEDTIME #30 tabs 04/05/22 pantoprazole 20 mg tablet,delayed 20 mg PO 0600 #30 tabs 04/05/22 release prednisone 5 mg tablet 15 mg (3 x 5 mg) PO DIRECTED 04/05/22 #90 tabs phenazopyridine 100 mg tablet 100 mg PO TID PRN pain 6 doses #6 11/24/22 (Pyridium) tabs cephalexin 500 mg capsule 500 mg PO TID 7 days #21 caps 01/01/23 doxycycline hyclate 100 mg capsule 100 mg PO BID #14 caps 01/01/23 Allergies Allergy/AdvReac Type Severity Reaction Status Date / Time latex Allergy Mild LOCAL RASH Verified 01/01/23 16:34 Penicillins Allergy Mild CHILDHOOD Verified 01/01/23 16:34 Sulfa (Sulfonamide Allergy Mild SOMETHING Verified 01/01/23 16:34 Antibiotics) TO DO WITH BLADDER OR KIDNEY'S?? azithromycin Allergy Verified 01/01/23 16:34 iodine AdvReac Intermediate RAPID Verified 01/01/23 16:34 HEART RATE (IV CONTRAST) Review of Systems Review of Systems Narrative: Pertinent positive and negative findings as per HPI Patient History Medical History (Updated 01/07/23 @ 20:30 by Sheri Villegas MD) Chronic ITP (idiopathic thrombocytopenic purpura) Pulmonary embolism and infarction Chronic steroid use Microscopic hematuria Scoliosis Anxiety Osteoporosis Atrial flutter Hypertension Surgical History History of splenectomy Status post hysterectomy History of tonsillectomy Family History Father Cancer Mother Bleeding disorder Brother Brain cancer Social History marital status: household members: spouse lives independently: Yes Smoking Status: Former smoker alcohol intake: former Smoking Status: Former smoker alcohol intake frequency: holidays/special occasions only Substance Use Type: does not use Exam Initial Vital Signs Initial Vital Signs: Vital Signs Temperature 97.8 F 01/07/23 18:28 Pulse Rate 85 01/07/23 18:28 Respiratory Rate 18 01/07/23 18:28 Blood Pressure 143/84 H 01/07/23 18:28 Pulse Oximetry 97 01/07/23 18:28 Oxygen Delivery Method Room Air 01/07/23 18:28 General: Frail and chronically ill-appearing but in no acute distress. Able to give a complete and coherent history. HEENT: Moist mucous membranes, normal sclera with reactive pupils, Neck: No JVD, supple Respiratory: Lungs are clear to auscultation, no wheezing no rales no rhonchi. Full and symmetrical air movement Cardiac: Regular rate and rhythm no murmurs no bruits Abdomen: Soft, nontender, good bowel tones, no flank pain Skin: Quite thin from chronic prednisone use with bruises in multiple stages of healing, increasing purpura in the lower extremities bilaterally. She does have skin protective garments in place. Neurologic: Grossly neurologically intact with no obvious asymmetries or abnormalities Extremities: Left calf with a 2 x 2 cm hematoma that does not appear to be acutely infected with quite a bit of expanding bruising that seems appropriate for timing described. Psych: Cooperative, appropriate insight and affect Course Orders Ordered: ED Orders 01/07/23 19:15 Complete Blood Count AUTO DIFF Stat Comprehensive Metabolic Panel Stat Type and Screen Stat Vital Signs Vital signs: Vital Signs - 8 hr 01/07/23 18:28 01/07/23 19:22 01/07/23 19:22 Temperature 97.8 F Pulse Rate 85 78 Respiratory Rate 18 15 Blood Pressure 143/84 H 144/93 H Pulse Oximetry 97 97 Oxygen Delivery Method Room Air Room Air 01/07/23 19:30 01/07/23 19:30 01/07/23 20:00 Temperature Pulse Rate 73 Respiratory Rate 17 Blood Pressure 144/78 H 132/78 Pulse Oximetry 95 Oxygen Delivery Method Room Air 01/07/23 20:00 Temperature Pulse Rate 70 Respiratory Rate Blood Pressure Pulse Oximetry 96 Oxygen Delivery Method Medical Decision Making Lab Data 01/07/23 19:15 01/07/23 19:15 Labs: Lab Results 01/07/23 Range/Units 19:15 WBC 15.3 H (4.5-11.0) X10^3/uL RBC 3.99 L (4.0-5.2) X10^6/uL Hgb 12.2 (12.0-16.0) g/dL Hct 36.3 (36-46) % MCV 91.0 (80-100) fL MCH 30.6 (26-34) PG MCHC 33.7 (30-36) % RDW 15.0 H (11.6-14.8) % Plt Count 95 L (150-400) X10^3/uL Neut % (Auto) 87.2 H (50-75) % Lymph % (Auto) 7.5 L (25-40) % Greenlee % (Auto) 4.7 (3-14) % Eos % (Auto) 0.0 L (2-4) % Baso % (Auto) 0.6 (0-2) % Neut # (Auto) 91881 H (9678-1466) /uL Lymph # (Auto) 1100 (7879-7898) /uL Greenlee # (Auto) 700 (0-900) /uL Eos # (Auto) 0 (0-450) /uL Baso # (Auto) 100 (0-100) /uL Sodium 131 L (137-145) mmol/L Potassium 4.3 (3.4-5.1) mmol/L Chloride 99 (98-107) mmol/L Carbon Dioxide 27 (22-32) mmol/L BUN 25 H (7-17) mg/dL Creatinine 1.00 (0.52-1.04) mg/dL Estimated GFR 56 L (>60) mL/min BUN/Creatinine Ratio 25.0 H (6-22) Glucose 106 (80-110) mg/dL Calcium 9.5 (8.4-10.2) mg/dL Total Bilirubin 0.6 (0.2-1.3) mg/dL AST 23 (14-36) IU/L ALT 20 (<35) IU/L Alkaline Phosphatase 56 (38-126) U/L Total Protein 6.3 (6.3-8.2) g/dL Albumin 3.9 (3.5-5.0) g/dL Globulin 2.4 (1.7-4.1) g/dL Albumin/Globulin Ratio 1.6 (1.0-2.8) MDM Narrative Medical decision making narrative: CC: Concerns for dropping platelets in light of increasing purpuric rash in the lower extremities Complicating co-morbidities: Chronic ITP currently on 20 mg of prednisone, recently diagnosed left calf infected hematoma on cephalexin Data collected from: patient Social determinants of health that may influence the patients condition: Patient is currently trying to transition care from [facility] to [facility] providers Medical records reviewed: Records from [facility] your note from 01/04 with diagnosis of infected hematoma of the lower extremity no evidence of DVT. Primary care follow-up notes after hospitalization on 12/04 are reviewed hospitalization for pneumonia on 12/04 also reviewed Differential considered: Exacerbation of her ITP with low platelets, internal bleeding, sepsis, worsening cellulitis lower extremity Exam documented above, pertinent findings include: Pleasant 82-year-old woman with some minor amount of bleeding about the gums appreciated. No cervical adenopathy, heart and lungs are benign abdomen is nontender. Lower extremities with bruises in multiple stages of healing and developing areas of purpura. The hematoma from the left calf is breaking down and multiple shades of healing bruising or appreciated extending from it without overt erythema associated with infection and no palpable abscesses or significant tenderness appreciated Lab Test results independently reviewed as above. Pertinent findings: In reviewing recent medical record she has had a moderate leukocytosis in the 15-22K range over the last month. Most recent was 18.6 with 91% neutrophils from [facility] on the of this month Labs for today CBC shows white count decreased to 15.3. Platelets remained stable at 95 which is close to her baseline. Neutrophils tend to be trending down. She is not anemic with H and H at 12.2 and 36.3 Chemistries show normal renal function, normal electrolytes, liver studies are unremarkable Treatments: 100 mg stress dose of hydrocortisone given her 20 years of chronic prednisone use and the acute stress of the left lower extremity cellulitis. Also given additional 20 mg of oral prednisone. Re-evaluations: Reviewed labs all fairly reassuring. Talked about reasoning behind hydrocortisone dosing. Patient notes that any time she gets those spots increasing in her lower extremities she always does better with increasing her prednisone. She feels that the 20 mg she is been on recently is ?hardly anything?. With shared decision-making we opted to increase her prednisone to 30 mg over the next 5 days and then go back to 20. This may be beneficial and I think there is minimal harm to doing so. Patient is pleased with that plan. Discussion: 82-year-old woman concerned that her platelets are again low, but they remain 95 which is where they were 3 days ago and seemed to be close to her baseline. There is no overt evidence of anemia. SHe is given a stress dose of hydrocortisone. At patient's request she is given slight increase in her prednisone, will increase home 20 mg dose to 30 mg for the next 5 days. Reassurance is given regarding her baseline platelet count without evidence of dramatic worsening, reason for additional imaging or hospitalization at this time. She does have follow-up appointments scheduled later this week with her primary doctor and has oncology follow-up for her ITP scheduled in approximately 2 weeks. Questions are answered and she is safe for discharge Discharge Plan Departure Patient Disposition: Home Clinical Impression: Thrombocytopenia Cellulitis Qualifiers: Site of cellulitis: extremity Site of cellulitis of extremity: lower extremity Laterality: left Qualified Code(s): L03.116 - Cellulitis of left lower limb Instructions: Immune Thrombocytopenia Purpura Activity Restrictions/Additional Instructions: Thank you for coming in today You are absolutely correct in that you are developing more of the lesions on your lower extremities seen with low platelets. Fortunately, your platelets seem to be close to their baseline at 95 today. I have given you a dose of hydrocortisone to augment your adrenal glands. These glands help with acute stress response such as a cellulitis. These glands do get suppressed when you been on chronic steroids. Please do continue the cephalexin that you are prescribed a couple of days ago I am going to suggest that you increase your home prednisone from 20 mg to 30 mg from January 08 through January 12. Return to 20 mg daily on January 13. Please make sure you are keeping your follow-up outpatient appointments with your providers. If you find that you are getting worse or develop any new symptoms, please feel free to return to the emergency department for further evaluation. Prescriptions: No Action phenazopyridine [Pyridium] 100 mg tablet 100 mg PO TID PRN (Reason: pain) Qty: 6 0RF doxycycline hyclate 100 mg capsule 100 mg PO BID Qty: 14 0RF cephalexin 500 mg capsule 500 mg PO TID 7 Days Qty: 21 0RF polyethylene glycol 3350 [Miralax] 17 GM powder in packet 17 gm PO BEDTIME PRN (Reason: Constipation) Qty: 0 conjugated estrogens 0.625 mg/gram cream 0.625 mg vaginal 2XW Qty: 30 3RF Rx Instructions: Apply 1g to vagina 2x weekly, including urethra. multivitamin Tablet 1 tab PO DAILY vitamin B complex Tablet 1 tab PO DAILY cholecalciferol (vitamin D3) [Vitamin D3] 50 mcg (2,000 unit) Capsule 50 mcg PO DAILY vitamin T25-rtxxc acid 0.5-1 mg Tablet 1 tab PO DAILY aminocaproic acid [Amicar] 500 mg Tablet 2 g PO QID PRN (Reason: Bleeding) Qty: 32 0RF Rx Instructions: take as needed when bleeding occurs melatonin 3 mg Tablet 3 mg PO BEDTIME Qty: 30 0RF pantoprazole 20 mg Tablet,Delayed Release (Dr/Ec) 20 mg PO 0600 Qty: 30 0RF lorazepam 0.5 mg tablet 0.5 mg PO BEDTIME Qty: 30 0RF Rx Instructions: take by mouth once daily at bedtime prednisone 5 mg Tablet 15 mg PO DIRECTED Qty: 90 2RF Rx Instructions: Take 3 tablets (15mg) once daily by mouth. lisinopril 30 mg tablet 30 mg PO DAILY Qty: 30 0RF Referrals: Henny Dinh PA-C [Primary Care Provider] - Stand Alone Forms: Patient Portal/API
[2023-01-07 19:22] VITALS: BP 144/93; PULSE 78; RESP 15; O2SAT 97
[2023-01-07 19:30] VITALS: BP 144/78; PULSE 73; RESP 17; O2SAT 95
[2023-01-07 19:37] LABS: Add Manual Diff / Slide Review NO; Basophils Absolute Auto 100 /uL (0-100); Basophils Percent Auto 0.6 % (0-2); Eosinophils Absolute Auto 0 /uL (0-450); Hematocrit 36.3 % (36-46); Hemoglobin 12.2 g/dL (12.0-16.0); Lymphocytes Absolute Auto 1100 /uL (1100-4500); Lymphocytes Percent Auto 7.5 % (25-40); Mean Corpuscular HGB Conc 33.7 % (30-36); Mean Corpuscular Hemoglobin 30.6 PG (26-34); Monocytes Absolute Auto 700 /uL (0-900); Monocytes Percent Auto 4.7 % (3-14); Neutrophils Absolute Auto 13300 /uL (1500-7000); Neutrophils Percent Auto 87.2 % (50-75); Platelet Count 95 X10^3/uL (150-400); Red Blood Cell Count 3.99 X10^6/uL (4.0-5.2); White Blood Cell Count 15.3 X10^3/uL (4.5-11.0)
--- NOTE | 2023-01-07 19:55 | PC.NURSE ---
Dress left calf area with vaseline gauze, followed by telfa, wrapped with gauze wrap and coban.
[2023-01-07 20:00] VITALS: BP 132/78; PULSE 70; O2SAT 96
[2023-01-07 20:07] LABS: Alanine Aminotransferase 20 IU/L (<35); Albumin 3.9 g/dL (3.5-5.0); Albumin Globulin Ratio 1.6 (1.0-2.8); Alkaline Phosphatase 56 U/L (38-126); Aspartate Aminotransferase 23 IU/L (14-36); Bilirubin Total 0.6 mg/dL (0.2-1.3); Blood Urea Nitrogen 25 mg/dL (7-17); Calcium 9.5 mg/dL (8.4-10.2); Carbon Dioxide 27 mmol/L (22-32); Chloride 99 mmol/L (98-107); Estimated Glomerular Filt Rate 56 mL/min (>60); Globulin 2.4 g/dL (1.7-4.1); Glucose 106 mg/dL (80-110); HEMOLYSIS < 15 (0-50); Potassium 4.3 mmol/L (3.4-5.1); Sodium 131 mmol/L (137-145); Total Protein 6.3 g/dL (6.3-8.2)
[2023-01-07 20:30] VITALS: BP 150/87; PULSE 92; O2SAT 94
[2023-01-07] MEDS: predniSONE 20 MG TABLET PO (20:31)
[2023-01-07] MEDS: HYDROCORTISONE 100 MG/2 ML VIAL IV (20:31)
== END 2023-01-07 20:47 | disposition home or self-care (01) ==
PROVIDERS: Emergency Provider Emergency Medicine; Family Provider Physician Assistant; PCP Physician Assistant
DX: D69.6 Thrombocytopenia, unspecified (principal); L03.116 Cellulitis of left lower limb; Z79.01 Long term (current) use of anticoagulants
CPT/HCPCS: 36415; 80053; 85025; 86850; 86900; 86901; 96374; 99284; J1720

== ENCOUNTER → 2023-01-09 16:21 | Outpatient (CLI) | payer MEDICARE, OTHER, SELFPAY ==
[2022-04-02 04:28] VITALS: BMI 19.0
[2023-01-09 17:03] LABS: Hematocrit 37.8 % (36-46); Hemoglobin 12.7 g/dL (12.0-16.0); Mean Corpuscular HGB Conc 33.5 % (30-36); Mean Corpuscular Hemoglobin 30.2 PG (26-34); Mean Corpuscular Volume 90.3 fL (80-100); Platelet Count 92 X10^3/uL (150-400); Red Blood Cell Count 4.19 X10^6/uL (4.0-5.2); Red Cell Distribution Width 15.3 % (11.6-14.8); White Blood Cell Count 16.4 X10^3/uL (4.5-11.0)
[2023-01-09 17:12] LABS: Add Manual Diff / Slide Review YES
[2023-01-09 18:24] LABS: Neutrophils Absolute Manual 14268 /uL (3000-5900); Total Cells Counted 100
[2023-01-09 18:25] LABS: Platelet Estimate Decreased on smear; RBC Morphology Normal Morphology
== END ==
PROVIDERS: Family Provider Physician Assistant; PCP Physician Assistant; Referring Provider Family Medicine; Visit Provider Family Medicine
DX: N17.9 Acute kidney failure, unspecified (principal); I50.32 Chronic diastolic (congestive) heart failure; D69.3 Immune thrombocytopenic purpura
CPT/HCPCS: 85007; 85025

== ENCOUNTER → 2023-01-10 09:56 | Outpatient (CLI) | payer MEDICARE, OTHER, SELFPAY ==
[2022-04-02 04:28] VITALS: BMI 19.0
--- NOTE | 2023-01-10 | OV.WND_ITS ---
Progress Note Details Patient Name: Priscilla Mahan Date: Patient Number: [id number] Clinician: Roberta Watts R.N. Patient Date of : 1940 Physician / Machine Fixer: Alisia Polk PA-C Patient SUBJECTIVE Chief Complaint This information was obtained from the Chart. Wound to left leg. Allergies penicillin (Reaction: unkown), Sulfa (Sulfonamide Antibiotics) (Reaction: unknown), Iodinated Contrast Media - Oral and IV Dye (Reaction: rapid heartrate), latex (Severity: Moderate, Reaction: rash), erythromycin base (Reaction: unkown), levofloxacin, azithromycin, ioxaglate meglumine HPI This information was obtained from the Patient. 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 This started as a cut from her fingernail and she notes very friable skin that frequently develops similar hematomas and wounds any time she has a cut. She was seen at [facility] ER 01/04/23, treated with round of keflex and burst of hydrocortisone. She f/u at ER 01/07/23, recommended to continue prednisone 30mg through Jan 12 then reduce back to 20mg qd. She has had f/u with her PCP who has referred her to wound care. His note indicates she was to be applying clotrimazole but she has not been using this because she also has thrush which she is treating. Patient notes that she is prescribed eliquis 2.5mg bid but she only takes it qd because she is concerned about bleeding too much. She has swelling to b/l extremities that is chronic for which she uses lasix prn. She denies fevers, chills or feeling like the leg is hot. She does have nausea which she reports is chronic for her. On today's visit, small hematoma is still present but there is no active drainage or open wound. The area is tender to touch but there is no fluctuance, temperature is normal and there is no sign of infection. She is no longer on antibiotic therapy. Platelet baseline is usually @ 95. LABS: 01/07/23 WBC 15.3, Platelet 95, Na 131, K+ 4.3, GFR 56, Cr 1.00, AST 23, ALT 20, 01/04/23 Treated with keflex and steroid burst CHART REVIEW ER [facility] ER Discharge Plan 01/07/23: Activity Restrictions/Additional Instructions: You are absolutely correct in that you are developing more of the lesions on your lower extremities Priscilla Mahan [id number] 1940 seen with low platelets. Fortunately, your platelets seem to be close to their baseline at 95 today. I have given you a dose of hydrocortisone to augment your adrenal glands. These glands help with acute stress response such as a cellulitis. These glands do get suppressed when you been on chronic steroids. Please do continue the cephalexin that you are prescribed a couple of days ago I am going to suggest that you increase your home prednisone from 20 mg to 30 mg from January 08 through January 12. Return to 20 mg daily on January 13. Please make sure you are keeping your follow-up outpatient appointments with your providers. If you find that you are getting worse or develop any new symptoms, please feel free to return to the emergency department for further evaluation. [facility] 01/04/23 MDM Narrative Medical decision making narrative: CC: Concerns for dropping platelets in light of increasing purpuric rash in the lower extremities Complicating co-morbidities: Chronic ITP currently on 20 mg of prednisone, recently diagnosed left calf infected hematoma on cephalexin Data collected from: patient Social determinants of health that may influence the patients condition: Patient is currently trying to transition care from [facility] to [place] providers Medical records reviewed: Records from [facility] your note from 01/04 with diagnosis of infected hematoma of the lower extremity no evidence of DVT. Primary care follow-up notes after hospitalization on 12/04 are reviewed hospitalization for pneumonia on 12/04 also reviewed Differential considered: Exacerbation of her ITP with low platelets, internal bleeding, sepsis, worsening cellulitis lower extremity Exam documented above, pertinent findings include: Pleasant 82-year-old woman with some minor amount of bleeding about the gums appreciated. No cervical adenopathy, heart and lungs are benign abdomen is nontender. Lower extremities with bruises in multiple stages of healing and developing areas of purpura. The hematoma from the left calf is breaking down and multiple shades of healing bruising or appreciated extending from it without overt erythema associated with infection and no palpable abscesses or significant tenderness appreciated Lab Test results independently reviewed as above. Pertinent findings: In reviewing recent medical record she has had a moderate leukocytosis in the 15-22K range over the last month. Most recent was 18.6 with 91% neutrophils from [facility] on the of this month Labs for today CBC shows white count decreased to 15.3. Platelets remained stable at 95 which is close to her baseline. Neutrophils tend to be trending down. She is not anemic with H and H at 12.2 and 36.3 Chemistries show normal renal function, normal electrolytes, liver studies are unremarkable Treatments: 100 mg stress dose of hydrocortisone given her 20 years of chronic prednisone use and Priscilla Mahan [id number] 1940 the acute stress of the left lower extremity cellulitis. Also given additional 20 mg of oral prednisone. Re-evaluations: Reviewed labs all fairly reassuring. Talked about reasoning behind hydrocortisone dosing. Patient notes that any time she gets those spots increasing in her lower extremities she always does better with increasing her prednisone. She feels that the 20 mg she is been on recently is ???hardly anything???. With shared decision-making we opted to increase her prednisone to 30 mg over the next 5 days and then go back to 20. This may be beneficial and I think there is minimal harm to doing so. Patient is pleased with that plan. Discussion: 82-year-old woman concerned that her platelets are again low, but they remain 95 which is where they were 3 days ago and seemed to be close to her baseline. There is no overt evidence of anemia. SHe is given a stress dose of hydrocortisone. At patient's request she is given slight increase in her prednisone, will increase home 20 mg dose to 30 mg for the next 5 days. Reassurance is given regarding her baseline platelet count without evidence of dramatic worsening, reason for additional imaging or hospitalization at this time. She does have follow-up appointments scheduled later this week with her primary doctor and has oncology follow-up for her ITP scheduled in approximately 2 weeks. Questions are answered and she is safe for discharge Family History This information was obtained from the Patient. Cancer- Father, Sibling Heart Disease- Mother, Sibling Hypertension- Mother, Sibling Lung Disease- Sibling Stroke- Maternal Grandparents Social History This information was obtained from the Patient. Former smoker: quit 1983 Caffeine Use: 1 per day Children: 2 daughters Lives in: [facility] Marital Status: Retired Medical History This information was obtained from the Patient. 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 Yes? Complete all questions.: Yes Location of Cancer: Skin Patient underwent Radiation Treatment? If yes, answer question below.: No Surgical History This information was obtained from the Patient. Patient has a surgical history of: Spleenectomy- 07/11/2006 Tonsilectomy- Hysterectomy- MOHS- Multiple cancer removals- Hemorroid removal- Vaginal surgery- Review of Systems (ROS) This information was obtained from the Patient. Complaints and Symptoms Patient com plains of: General Notes: I have reviewed and concur with the Review of Systems and Past Family Social History documents completed by the clinician, I have reviewed and concur with the Wound Assessment document completed by the clinician Cardiovascular (Central/Peripheral): Lower extremity (leg) swelling (left lower extremity every time she has a chronic wound), Edema Hematologic/Lymphatic: Bruising, Bleeding / Clotting Disorders, Bleeding Tendency, Swelling Integumentary (Hair/Skin/Nails): Open Sore Prior Wound History: Drainage, Erythema, Pain Patient denies com plaints or sy m ptom s related to: Cardiovascular (Central): Irregular heart beat Cardiovascular (Central/Peripheral): Intermittent Claudication, Lower extremity (leg) resting pain Co-Morbid Conditions: Anemia (Idiopathic thrombocytopenic purpura since 2006), Coronary Artery Disease (Atrial flutter) Constitutional Symptoms (General Health): Chills, Fever Endocrine: Polydypsia (Excessive Thirst), Polyuria (Excessive Urination) Gastrointestinal (GI): Nausea / Vomiting, Stomach/abdominal pain Genitourinary (): Urinary Incontinence Integumentary (Hair/Skin/Nails): Lesions (2 new contusions on the right leg) Musculoskeletal: Assistive Devices, Deformities Neurological: Abnormal Gait, Loss of Protective Sensation Prior Wound History: Bleeding, Malodor Psychiatric: Depression, Memory Loss Respiratory: Oxygen Use, Shortness of Breath General Notes Pt has had flu and tetanus vaccine recently. OBJECTIVE Priscilla Mahan [id number] 1940 Vitals Height/Length: 65 in (165.1 cm), Weight: 118.7 lbs (53.95 kgs), BMI: 19.8, Temperature: 98.2 ?F (36.78 ?C), Pulse: 94 bpm, Respiratory Rate: 18 breaths/min, Blood Pressure: 160/95 mmHg, Pulse Oximetry: 94 %. Physical Exam Constitutional: Generalized weakness. In no apparent distress. Good attention to hygiene and body habits. Alert and oriented x 3. Well nourished. Vital signs reviewed and noted. hypertensive. Pulse rate and rhythm regular. Afebrile. Weight WNL. Well developed, well nourished, and in no acute distress. Alert and oriented x3. Ambulates and is able to change position without assistance. Alert and oriented X 3. Respiratory: Even respirations without use of accessory muscles. No intercoastal retractions noted. Even and non labored respiration. Cardiovascular: peripheral edema. Integumentary (Hair, Skin): friable, paper-thin, multiple bruisings bilaterally. see wound description. Neurological: Sensation: Symmetric function by informal observation. Psychiatric: Orientation to time, place and person: Normal affect with normal thought pattern. Mood and affect: Normal affect with normal thought pattern. Lower Extremity Assessment Edema Assessment: Left Extremity: Edema is present Compression Device In Use: No Calf Measurement 35 cm from heel with left measurement of 31.5 cm Ankle Measurement 11 cm from heel with left measurement of 25 cm Foot Measurement 11 cm from great toe with left measurement of 22 cm Right Extremity: Edema is present Compression Device In Use: No Calf Measurement 35 cm from heel with right measurement of 30 cm Ankle Measurement 11 cm from heel with right measurement of 22 cm Foot Measurement 11 cm from great toe with right measurement of 21 cm Vascular Assessment Left Extremity Pulses: Dorsalis Pedis: Palpable Right Extremity Pulses: Dorsalis Pedis: Palpable Left Extremity Colors, hair growth, and conditions: Extremity Color: Pigmented Hair Growth on Extremity: Yes Temperature of Extremity: Warm Capilary Refill: < 3 seconds Erythema: Yes Right Extremity Colors, hair growth, and conditions: Extremity Color: Pigmented Hair Growth on Extremity: Yes Temperature of Extremity: Warm Capilary Refill: < 3 seconds Erythema: Yes Wound Assessment(s) Wound #11 Left Leg - lower is a Hematoma and has received a status of Not Healed. Initial wound encounter measurements are 2.4cm length x 2.5cm width with no measurable depth, with an area of 6 sq cm. No tunneling has been noted. No sinus tract has been noted. No undermining has been noted. Priscilla Mahan [id number] 1940 There is a Scant amount of sanguineous drainage noted which has no odor. The patient reports a wound pain of level 9/10. The wound margin is unable to assess Wound bed has No, granulation, No slough, No eschar, Yes epithelialization. The periwound skin exhibited edema, ecchymosis and hemosiderosis. The periwound skin did not exhibit brawny induration, excoriation, induration, callus, crepitus, fluctuance, rash, maceration, atrophie marielle, cyanosis, erythema, pallor and rubor. The periwound skin was not friable, dry/scaly and moist. The temperature of the periwound skin is Warm. Periwound skin does not exhibit signs or symptoms of infection. Local Pulse is Palpable. Additional Information Limited to breakdown of skin: Yes ASSESSMENT Active Problems ICD-10 (Encounter Diagnosis) L97.921 - Non-pressure chronic ulcer of unspecified part of left lower leg limited to breakdown of skin (Encounter Diagnosis) T79.2XXA - Traumatic secondary and recurrent hemorrhage and seroma, initial encounter (Encounter Diagnosis) L03.116 - Cellulitis of left lower limb (Encounter Diagnosis) R60.9 - Edema, unspecified (Encounter Diagnosis) D69.3 - Immune thrombocytopenic purpura (Encounter Diagnosis) Z92.25 - Personal history of immunosuppression therapy (Encounter Diagnosis) Z79.01 - personalized living manager nurse (current) use of anticoagulants PLAN Wound Orders: Wound #11 Left Leg - lower Cleanser Cleanse Wound with normal saline Physician Review: Reviewed and evaluated labs. Discussed the Plan of Care @ bedside with - patient Reviewed hospital records. I, as the physician, have reviewed the orders scribed by the center RN's and agree. Additional Orders: Hygiene May shower with wound protected, using a cast protector or plastic bag and tape Dressings Primary dressing - Adaptic layer applied over wound. Cover and secure with - Telfa pad, conform wrap gauze. Change Dressing - Every other day or as needed to manage drainage. Compression/Edema Control Elevation of leg(s) above the level of the heart when sitting Avoid prolonged standing in one place Compression Type: - Tetra photocomposing keyboard operator stocking, size G for very light compression. You may put on in the morning and take off at night. Dietary Increased protein Other Priscilla Mahan [id number] 1940 Instructions: - Discuss Furosemide dose with your PCP and if you need to take potassium. Follow-Up Appointments Return Appointment - One week. Other information: If you develop fever, chills, increased pain, drainage, redness or swelling please call our office. If after hours, respond to the ER. Should you experience any significant changes in your wound(s) or have any questions regarding your home care instructions please contact the wound center @ [phone]. If after hours, contact your primary care physician or go to the hospital emergency room. Scribing Attestation I attest, as the nurse, that I scribed these orders for the physician. Plan of Care: 01. ENSURE/ESTABLISH OPTIMAL BLOOD FLOW : - Complete lower extremity assessment 02. ASSESS FOR/TREAT INFECTION : - Evaluate for signs and symptoms of infection and document findings. 03. DEBRIDE WEEKLY OR MORE OFTEN PRN : - Evaluate patient in center weekly to assess wound bed and margins for need for debridement. 04. OPTIMIZE GLUCOSE CONTROL and NUTRITION : - Order/review pertinent labs to evaluate renal function, glucose control, and nutritional status. - Complete a nutrition risk assessment. 05. OFFLOADING PLAN : - Reviewed, not applicable 06. OPTIMIZE HOST FACTORS: - Assess and review patient history for wound etiology, co-morbid conditions, medication regime, and smoking history. - Assess lifestyle factors such as smoking, alcohol/drug abuse, eating habits/malnutrition and activity level. 07. DRESSING SELECTION : - Evaluate for dressing-related factors, such as availability, wear time, adaptability and use to better optimize wound healing and patient compliance. - Choose topical treatments and/or dressing based on wound type and appearance, periwound skin condition, wound size and depth, anatomic location, volume of exudate, edema in the lower extremities, and risk or presence of infection. - Educate the patient/family/caregiver to monitor dressing daily. Change dressing only as needed but never less frequently than weekly so that wound bed can be reassessed. 08. ADVANCED MODALITIES : - Evaluate for appropriateness of Cellular Tissue Product therapy. 09. FALL PREVENTION : - Complete fall assessment. - Inform patient and family of risk of falling and discuss prevention strategies. - Encourage Installation and use grab bars in bathrooms. 10. PAIN MANAGEMENT : - Complete pain assessment - Prepare patient to set reasonable expectations prior to procedure. - Instruct the patient to call ???time-out??? if pain is too intense during procedure. 11. MEASURABLE GOALS for Wound Healing and/or Hyperbaric Oxygen Therapy : - Less Drainage - Decrease Inflammation - Decrease pain - Wound Closure - Improve quality of life 12. DURATION/FREQUENCY of Wound Care Visits : Priscilla Mahan [id number] 1940 - 1x weekly for 30 days 13. OSTOMY : - Reviewed, not applicable PLAN Wound is currently closed No procedure today Dressing: Keep covered w/ adaptek, light tubigrip as tolerated to avoid further injury CADY deferred d/t frailty of skin. US deferred for now, appears to be healing Goal: focus on fall risk prevention, reduce edema w/ light compression/cut out salt/continue leg elevation Long discussion re: treatment plan Recheck 1 week, monitor for infection Electronic Signature(s) Signed By: Date: Alisia Polk PA-C 01/10/2023 13:36:04 (PT) Entered By: Alisia Polk PA-C on 01/10/2023 13:35:32 (PT) Priscilla Mahan [id number]
== END ==
PROVIDERS: Family Provider Physician Assistant; PCP Physician Assistant; Referring Provider Family Medicine; Visit Provider Physician Assistant
DX: L97.921 Non-pressure chronic ulcer of unspecified part of left lower leg limited to breakdown of skin (principal); T79.2XXA Traumatic secondary and recurrent hemorrhage and seroma, initial encounter; L03.116 Cellulitis of left lower limb; R60.9 Edema, unspecified; D69.3 Immune thrombocytopenic purpura; Z92.25 Personal history of immunosuppression therapy; Z79.01 Long term (current) use of anticoagulants
CPT/HCPCS: 99213; 99214

== ENCOUNTER → 2023-01-13 11:22 | Outpatient (CLI) | payer MEDICARE, OTHER, SELFPAY ==
[2022-04-02 04:28] VITALS: BMI 19.0
[2023-01-13 11:43] LABS: Add Manual Diff / Slide Review NO; Basophils Absolute Auto 100 /uL (0-100); Basophils Percent Auto 0.8 % (0-2); Eosinophils Absolute Auto 200 /uL (0-450); Hematocrit 38.9 % (36-46); Lymphocytes Absolute Auto 4100 /uL (1100-4500); Mean Corpuscular HGB Conc 33.4 % (30-36); Mean Corpuscular Hemoglobin 30.2 PG (26-34); Mean Corpuscular Volume 90.4 fL (80-100); Monocytes Absolute Auto 1500 /uL (0-900); Monocytes Percent Auto 9.3 % (3-14); Neutrophils Absolute Auto 10000 /uL (1500-7000); Neutrophils Percent Auto 62.9 % (50-75); Platelet Count 111 X10^3/uL (150-400); Red Blood Cell Count 4.31 X10^6/uL (4.0-5.2); Red Cell Distribution Width 15.3 % (11.6-14.8)
== END ==
PROVIDERS: Family Provider Physician Assistant; PCP Family Medicine; Referring Provider Family Medicine; Visit Provider Family Medicine
DX: D69.3 Immune thrombocytopenic purpura (principal)
CPT/HCPCS: 36415; 85025

== ENCOUNTER → 2023-01-17 09:57 | Outpatient (CLI) | payer MEDICARE, OTHER, SELFPAY ==
[2022-04-02 04:28] VITALS: BMI 19.0
== END ==
PROVIDERS: Family Provider Physician Assistant; PCP Family Medicine; Visit Provider Surgery
DX: L97.921 Non-pressure chronic ulcer of unspecified part of left lower leg limited to breakdown of skin (principal); T79.2XXA Traumatic secondary and recurrent hemorrhage and seroma, initial encounter; R60.9 Edema, unspecified; D69.3 Immune thrombocytopenic purpura; Z92.25 Personal history of immunosuppression therapy; Z79.01 Long term (current) use of anticoagulants
CPT/HCPCS: 99213

== ENCOUNTER 2023-01-19 12:35 | Emergency (ER) | payer MEDICARE, OTHER, SELFPAY ==
[2022-04-02 04:28] VITALS: BMI 19.0
[2023-01-19 12:37] VITALS: BP 194/80; PULSE 89; RESP 16; TEMP 36.4; O2SAT 96; BMI 18.4
--- NOTE | 2023-01-19 12:48 | ED_ITS ---
HPI - Recheck/Abnormal Lab/Rx General Chief Complaint: Recheck/Abnormal Lab/Rx Stated Complaint: needs platelet count/bleeding under skin of legs Time Seen by Provider: 01/19/23 12:48 Source: patient Mode of arrival: Ambulatory Limitations: no limitations History of Present Illness HPI narrative: 82-year-old female with history of ITP on chronic steroids. Patient states she had labs checked on Friday had platelets in the 1 teen range but noticed increasing petechiae and bruising on her legs up to her abdomen and had some small petechiae within her mouth. She has not had any other bleeding from the nose, mouth or with cough, no black or bloody stools, no hematuria. Denies any other changes. She is concerned that her platelets may have dropped. She states she did get her RSV and COVID shot today because she had RSV exposure yesterday. She denies fevers but has felt generally unwell. She she has a mild headache states she wants to make sure that her platelets are not low. She did take Tylenol earlier. Denies chest pain, no shortness of breath, no other GI or urinary symptoms. She is allergies to several medications including latex, penicillin, sulfa, iodine, azithromycin. Patient primary care is Dr. Machado. Patient follows with hematology through [facility]. Related Data Home Medications Medication Instructions Recorded Confirmed polyethylene glycol 3350 17 gram 17 gm PO BEDTIME PRN Constipation 05/26/17 01/01/23 oral powder packet (Miralax) ##0 cholecalciferol (vitamin D3) 50 50 mcg PO DAILY 02/08/20 01/01/23 mcg (2,000 unit) capsule (Vitamin D3) multivitamin 1 tab PO DAILY 02/08/20 01/01/23 vitamin B complex 1 tab PO DAILY 02/08/20 01/01/23 vitamin B12 0.5 mg-folic acid 1 mg 1 tab PO DAILY 04/05/20 01/01/23 tablet Previous Rx's Medication Instructions Recorded conjugated estrogens 0.625 mg/gram 0.625 mg vaginal 2XW uretheral 07/14/20 vaginal cream caruncle #30 grams aminocaproic acid 500 mg tablet 2 g (4 x 500 mg) PO QID PRN 10/30/21 (Amicar) Bleeding #32 tabs lisinopril 30 mg tablet 30 mg PO DAILY #30 tabs 04/05/22 lorazepam 0.5 mg tablet 0.5 mg PO BEDTIME #30 tabs 04/05/22 melatonin 3 mg tablet 3 mg PO BEDTIME #30 tabs 04/05/22 pantoprazole 20 mg tablet,delayed 20 mg PO 0600 #30 tabs 04/05/22 release prednisone 5 mg tablet 15 mg (3 x 5 mg) PO DIRECTED 04/05/22 #90 tabs phenazopyridine 100 mg tablet 100 mg PO TID PRN pain 6 doses #6 11/24/22 (Pyridium) tabs doxycycline hyclate 100 mg capsule 100 mg PO BID #14 caps 01/01/23 Allergies Allergy/AdvReac Type Severity Reaction Status Date / Time latex Allergy Mild LOCAL RASH Verified 01/01/23 16:34 Penicillins Allergy Mild CHILDHOOD Verified 01/01/23 16:34 Sulfa (Sulfonamide Allergy Mild SOMETHING Verified 01/01/23 16:34 Antibiotics) TO DO WITH BLADDER OR KIDNEY'S?? 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 Chronic steroid use Microscopic hematuria Scoliosis Anxiety Osteoporosis Atrial flutter Hypertension Surgical History History of splenectomy Status post hysterectomy History of tonsillectomy Family History Father Cancer Mother Bleeding disorder Brother Brain cancer Social History marital status: household members: spouse lives independently: Yes Smoking Status: Former smoker alcohol intake: former Smoking Status: Former smoker alcohol intake frequency: holidays/special occasions only Substance Use Type: does not use Exam Narrative Exam Narrative: GEN: well nourished, well appearing female, alert and oriented x [default value], patient appears to be in mild distress. HEENT: Atraumatic, pupils are equal round reactive to light, extraocular movements are intact, nares are clear, TMs are clear with no fluid, there is no conjunctival pallor. Throat is clear without any exudates, erythema, tonsillar enlargement or uvular deviation, small intraoral petechiae otherwise normal exam. HEART: Regular rate and rhythm without murmur, clicks, rubs. LUNGS:Lungs clear to auscultation, no wheezes, rales, crackles, chest moves symmetrically ABD:bowel sounds normal, soft, non-tender, no guarding, rebound, rigidity, no masses noted, no hepatosplenomegaly :No CVA tenderness MSCL: Non-tender, no muscle atrophy, muscles strength 5/5 upper and lower extremities, full range of motion, normal gait NEURO:CN 2-12 intact, sensation normal SKIN: Patient has and many areas of preparing ecchymosis ranging from 0.5 cm to 2 cm in size on bilateral extremities but right greater left with petechiae and lower abdomen. Not appreciated as much in the upper torso. No petechiae of the face. Initial Vital Signs Initial Vital Signs: Vital Signs Temperature 97.5 F L 01/19/23 12:37 Pulse Rate 89 01/19/23 12:37 Respiratory Rate 16 01/19/23 12:37 Blood Pressure 194/80 H 01/19/23 12:37 Pulse Oximetry 96 01/19/23 12:37 Oxygen Delivery Method Room Air 01/19/23 12:37 Course Orders Ordered: ED Orders 01/19/23 13:35 CBC Auto Diff [Complete Blood Count AUTO DIFF] Stat CMP [Comprehensive Metabolic Panel] Stat PTT Partial Thromboplastin Nelson Stat Prothrombin Time INR Stat Vital Signs Vital signs: Vital Signs - 8 hr 01/19/23 12:37 Temperature 97.5 F L Pulse Rate 89 Respiratory Rate 16 Blood Pressure 194/80 H Pulse Oximetry 96 Oxygen Delivery Method Room Air MDM - Recheck/Abnormal Lab/Rx Lab Data 01/19/23 13:35 01/19/23 13:35 Labs: Lab Results 01/19/23 Range/Units 13:35 WBC 18.8 H (4.5-11.0) X10^3/uL RBC 3.99 L (4.0-5.2) X10^6/uL Hgb 12.1 (12.0-16.0) g/dL Hct 35.8 L (36-46) % MCV 89.8 (80-100) fL MCH 30.4 (26-34) PG MCHC 33.9 (30-36) % RDW 15.4 H (11.6-14.8) % Plt Count 110 L (150-400) X10^3/uL Neut % (Auto) 90.8 H (50-75) % Lymph % (Auto) 5.2 L (25-40) % Spencer % (Auto) 3.1 (3-14) % Eos % (Auto) 0.3 L (2-4) % Baso % (Auto) 0.6 (0-2) % Neut # (Auto) 02992 H (4319-1714) /uL Lymph # (Auto) 1000 L (9653-0545) /uL Spencer # (Auto) 600 (0-900) /uL Eos # (Auto) 100 (0-450) /uL Baso # (Auto) 100 (0-100) /uL PT 11.8 (9.4-12.5) SECONDS INR 1.0 (0.9-1.3) APTT 31 (25.1-36.5) SECONDS Sodium 133 L (137-145) mmol/L Potassium 4.0 (3.4-5.1) mmol/L Chloride 99 (98-107) mmol/L Carbon Dioxide 29 (22-32) mmol/L BUN 27 H (7-17) mg/dL Creatinine 0.98 (0.52-1.04) mg/dL Estimated GFR 58 L (>60) mL/min BUN/Creatinine Ratio 27.6 H (6-22) Glucose 100 (80-110) mg/dL Calcium 9.8 (8.4-10.2) mg/dL Total Bilirubin 0.8 (0.2-1.3) mg/dL AST 27 (14-36) IU/L ALT 22 (<35) IU/L Alkaline Phosphatase 56 (38-126) U/L Total Protein 6.7 (6.3-8.2) g/dL Albumin 4.2 (3.5-5.0) g/dL Globulin 2.5 (1.7-4.1) g/dL Albumin/Globulin Ratio 1.7 (1.0-2.8) MDM Narrative Medical decision making narrative: 82-year-old female presents with concern for worsening ITP she is on prednisone daily. She has had an increase in petechiae, and ecchymosis on her lower extremities ranging up to her abdomen. No active bleeding that she is appreciated she does have a mild headache. Patient states she also did have her COVID/RSV immunization today secondary to RSV exposure yesterday. Patient had labs on 01/13/2023 which were overall reassuring and consistent with her baseline. Patient notes on her prior visit with Dr. Villegas in December of 2022 she received a dose of medication was very helpful. Discussed with patient we will obtain CBC, CMP and coags to evaluate for drop in her platelet count or other changes. Patient's white count today is 18.8, platelets are 110 she was 111 on 01/13/2023. Hemoglobin is 12.1 she was 13 on 01/13. Coags are negative sodium is 133 BUN 27 with normal glucose and LFTs. Patient encouraged to follow up with in flight crew member. Given copy of labs to share with her oncology team. Discussed return precautions. Discharge Plan Departure Patient Disposition: Home Clinical Impression: History of ITP, Ecchymosis Activity Restrictions/Additional Instructions: Your platelets today are appropriate at 110, they were 111 on 01/13/2023. Follow-up your labs with your in flight crew member. Call to update your in flight crew member. A copy of your labs as included with your discharge paperwork. Please return for increasing bruising, any signs of bleeding, severe headaches, new chest pain or pressure, shortness of breath, persistent vomiting, black or bloody stools, blood in your urine, coughing up blood or vomiting blood. Prescriptions: No Action phenazopyridine [Pyridium] 100 mg tablet 100 mg PO TID PRN (Reason: pain) Qty: 6 0RF doxycycline hyclate 100 mg capsule 100 mg PO BID Qty: 14 0RF polyethylene glycol 3350 [Miralax] 17 GM powder in packet 17 gm PO BEDTIME PRN (Reason: Constipation) Qty: 0 conjugated estrogens 0.625 mg/gram cream 0.625 mg vaginal 2XW Qty: 30 3RF Rx Instructions: Apply 1g to vagina 2x weekly, including urethra. multivitamin Tablet 1 tab PO DAILY vitamin B complex Tablet 1 tab PO DAILY cholecalciferol (vitamin D3) [Vitamin D3] 50 mcg (2,000 unit) Capsule 50 mcg PO DAILY vitamin G95-[id number] acid 0.5-1 mg Tablet 1 tab PO DAILY aminocaproic acid [Amicar] 500 mg Tablet 2 g PO QID PRN (Reason: Bleeding) Qty: 32 0RF Rx Instructions: take as needed when bleeding occurs melatonin 3 mg Tablet 3 mg PO BEDTIME Qty: 30 0RF pantoprazole 20 mg Tablet,Delayed Release (Dr/Ec) 20 mg PO 0600 Qty: 30 0RF lorazepam 0.5 mg tablet 0.5 mg PO BEDTIME Qty: 30 0RF Rx Instructions: take by mouth once daily at bedtime prednisone 5 mg Tablet 15 mg PO DIRECTED Qty: 90 2RF Rx Instructions: Take 3 tablets (15mg) once daily by mouth. lisinopril 30 mg tablet 30 mg PO DAILY Qty: 30 0RF Referrals: Jayson Machado MD [Primary Care Provider] - Stand Alone Forms: Patient Portal/API
--- NOTE | 2023-01-19 12:54 | PC.NURSE ---
Pt was seen in pcp office on 01/13/2023 and had routine labs drawn for hx of ITP. Pt checked into the ED today because she has concerns of bleeding under her skin due to medical hx and would like to have her platelet count checked again today. Pt refused gown, IV and panel monitor and stated that she only wants her labs drawn and shouldn't have to stay because she has done it before. I explained the emergency dept process to the pt and pt continues to refuse IV, gown and panel monitor. Pt stated that she does not have time to stay and wait for lab results but would like to speak with the doctor. Dr Royal notified.
--- NOTE | 2023-01-19 13:22 | PC.NURSE ---
Dr Royal spoke with pt and explained the ed process and rationale for IV placement and cardiac monitoring. Pt refuses IV placement but allows lab draw. Pt states that she will stay for the results of the lab but doesn't want to make it an all day affair. Lab called for draw. Dr Royal notified.
[2023-01-19 13:41] LABS: Add Manual Diff / Slide Review NO; Basophils Absolute Auto 100 /uL (0-100); Basophils Percent Auto 0.6 % (0-2); Eosinophils Absolute Auto 100 /uL (0-450); Eosinophils Percent Auto 0.3 % (2-4); Hematocrit 35.8 % (36-46); Hemoglobin 12.1 g/dL (12.0-16.0); Lymphocytes Absolute Auto 1000 /uL (1100-4500); Lymphocytes Percent Auto 5.2 % (25-40); Mean Corpuscular HGB Conc 33.9 % (30-36); Mean Corpuscular Hemoglobin 30.4 PG (26-34); Mean Corpuscular Volume 89.8 fL (80-100); Monocytes Absolute Auto 600 /uL (0-900); Monocytes Percent Auto 3.1 % (3-14); Neutrophils Absolute Auto 17000 /uL (1500-7000); Neutrophils Percent Auto 90.8 % (50-75); Platelet Count 110 X10^3/uL (150-400); Red Blood Cell Count 3.99 X10^6/uL (4.0-5.2); Red Cell Distribution Width 15.4 % (11.6-14.8); White Blood Cell Count 18.8 X10^3/uL (4.5-11.0)
[2023-01-19 13:49] LABS: Prothrombin Time 11.8 SECONDS (9.4-12.5)
[2023-01-19 13:51] LABS: PTT Partial Thromboplastin Tim 31 SECONDS (25.1-36.5)
[2023-01-19 13:57] LABS: Alanine Aminotransferase 22 IU/L (<35); Albumin 4.2 g/dL (3.5-5.0); Albumin Globulin Ratio 1.7 (1.0-2.8); Alkaline Phosphatase 56 U/L (38-126); Aspartate Aminotransferase 27 IU/L (14-36); BUN Creatinine Ratio 27.6 (6-22); Bilirubin Total 0.8 mg/dL (0.2-1.3); Blood Urea Nitrogen 27 mg/dL (7-17); Calcium 9.8 mg/dL (8.4-10.2); Carbon Dioxide 29 mmol/L (22-32); Chloride 99 mmol/L (98-107); Estimated Glomerular Filt Rate 58 mL/min (>60); Globulin 2.5 g/dL (1.7-4.1); Glucose 100 mg/dL (80-110); HEMOLYSIS < 15 (0-50); Sodium 133 mmol/L (137-145); Total Protein 6.7 g/dL (6.3-8.2)
== END 2023-01-19 14:23 | disposition home or self-care (01) ==
PROVIDERS: Emergency Provider Emergency Medicine; Family Provider Physician Assistant; PCP Family Medicine
DX: R58 Hemorrhage, not elsewhere classified (principal); Z86.2 Personal history of diseases of the blood and blood-forming organs and certain disorders involving the immune mechanism
CPT/HCPCS: 36415; 80053; 85025; 85610; 85730; 99281; 99283

== ENCOUNTER → 2023-02-14 14:26 | Outpatient (CLI) | payer MEDICARE, OTHER, SELFPAY ==
[2022-04-02 04:28] VITALS: BMI 19.0
== END ==
PROVIDERS: Family Provider Physician Assistant; PCP Family Medicine; Visit Provider Physician Assistant
DX: S81.802A Unspecified open wound, left lower leg, initial encounter (principal); I87.2 Venous insufficiency (chronic) (peripheral); R23.3 Spontaneous ecchymoses; Z92.25 Personal history of immunosuppression therapy; Z79.01 Long term (current) use of anticoagulants; I10 Essential (primary) hypertension
CPT/HCPCS: 11042; 87070; 87075; 87077; 87147; 87186; 87205; 99213

== ENCOUNTER → 2023-02-18 11:13 | Outpatient (CLI) | payer MEDICARE, OTHER, SELFPAY ==
[2022-04-02 04:28] VITALS: BMI 19.0
== END ==
PROVIDERS: Family Provider Physician Assistant; PCP Family Medicine; Visit Provider Surgery
DX: S80.12XA Contusion of left lower leg, initial encounter (principal); L08.89 Other specified local infections of the skin and subcutaneous tissue; B95.7 Other staphylococcus as the cause of diseases classified elsewhere; R60.0 Localized edema
CPT/HCPCS: 99213

== ENCOUNTER → 2023-02-20 15:33 | Outpatient (CLI) | payer MEDICARE, OTHER, SELFPAY ==
[2022-04-02 04:28] VITALS: BMI 19.0
== END ==
PROVIDERS: Family Provider Physician Assistant; PCP Family Medicine; Visit Provider Surgery
DX: L97.822 Non-pressure chronic ulcer of other part of left lower leg with fat layer exposed (principal); I87.2 Venous insufficiency (chronic) (peripheral); S81.811A Laceration without foreign body, right lower leg, initial encounter; R60.0 Localized edema; R23.3 Spontaneous ecchymoses; I73.81 Erythromelalgia; Z92.25 Personal history of immunosuppression therapy; Z79.01 Long term (current) use of anticoagulants
CPT/HCPCS: 11042; 97597; 99213

== ENCOUNTER → 2023-02-24 12:56 | Outpatient (CLI) | payer MEDICARE, OTHER, SELFPAY ==
[2022-04-02 04:28] VITALS: BMI 19.0
[2023-02-24 14:42] LABS: Add Manual Diff / Slide Review NO; Basophils Absolute Auto 200 /uL (0-100); Basophils Percent Auto 1.3 % (0-2); Eosinophils Absolute Auto 200 /uL (0-450); Eosinophils Percent Auto 1.6 % (2-4); Hematocrit 36.8 % (36-46); Hemoglobin 12.3 g/dL (12.0-16.0); Lymphocytes Absolute Auto 2300 /uL (1100-4500); Lymphocytes Percent Auto 15.1 % (25-40); Mean Corpuscular HGB Conc 33.5 % (30-36); Mean Corpuscular Hemoglobin 29.5 PG (26-34); Mean Corpuscular Volume 88.2 fL (80-100); Monocytes Absolute Auto 1300 /uL (0-900); Monocytes Percent Auto 8.4 % (3-14); Neutrophils Absolute Auto 11000 /uL (1500-7000); Neutrophils Percent Auto 73.6 % (50-75); Platelet Count 108 X10^3/uL (150-400); Red Blood Cell Count 4.18 X10^6/uL (4.0-5.2); Red Cell Distribution Width 14.4 % (11.6-14.8)
[2023-02-24 15:47] LABS: Alanine Aminotransferase 18 IU/L (<35); Albumin 4.2 g/dL (3.5-5.0); Albumin Globulin Ratio 1.4 (1.0-2.8); Alkaline Phosphatase 63 U/L (38-126); Aspartate Aminotransferase 26 IU/L (14-36); BUN Creatinine Ratio 23.5 (6-22); Bilirubin Total 0.8 mg/dL (0.2-1.3); Blood Urea Nitrogen 23 mg/dL (7-17); Calcium 10.1 mg/dL (8.4-10.2); Carbon Dioxide 27 mmol/L (22-32); Chloride 99 mmol/L (98-107); Estimated Glomerular Filt Rate 58 mL/min (>60); Globulin 2.9 g/dL (1.7-4.1); Glucose 97 mg/dL (80-110); HEMOLYSIS < 15 (0-50); Potassium 3.9 mmol/L (3.4-5.1); Sodium 133 mmol/L (137-145); Total Protein 7.1 g/dL (6.3-8.2)
== END ==
PROVIDERS: Family Provider Physician Assistant; PCP Family Medicine; Referring Provider Internal Medicine Hematology & Oncology; Visit Provider Internal Medicine Hematology & Oncology
DX: D69.3 Immune thrombocytopenic purpura (principal)
CPT/HCPCS: 36415; 80053; 85025

== ENCOUNTER → 2023-02-25 10:38 | Outpatient (CLI) | payer MEDICARE, OTHER, SELFPAY ==
[2022-04-02 04:28] VITALS: BMI 19.0
== END ==
PROVIDERS: Family Provider Physician Assistant; PCP Family Medicine; Visit Provider Physician Assistant
DX: L97.822 Non-pressure chronic ulcer of other part of left lower leg with fat layer exposed (principal); I87.2 Venous insufficiency (chronic) (peripheral); S81.811A Laceration without foreign body, right lower leg, initial encounter; R60.0 Localized edema; R23.3 Spontaneous ecchymoses; L53.9 Erythematous condition, unspecified
CPT/HCPCS: 99214

== ENCOUNTER → 2023-03-04 10:57 | Outpatient (CLI) | payer MEDICARE, OTHER, SELFPAY ==
[2022-04-02 04:28] VITALS: BMI 19.0
== END ==
LOC: WC 11:03
PROVIDERS: Family Provider Physician Assistant; PCP Family Medicine; Visit Provider Surgery
DX: L97.822 Non-pressure chronic ulcer of other part of left lower leg with fat layer exposed (principal); I87.2 Venous insufficiency (chronic) (peripheral); S81.811A Laceration without foreign body, right lower leg, initial encounter; R60.9 Edema, unspecified; R23.3 Spontaneous ecchymoses; D69.3 Immune thrombocytopenic purpura; I73.81 Erythromelalgia; Z92.25 Personal history of immunosuppression therapy; Z79.01 Long term (current) use of anticoagulants; I10 Essential (primary) hypertension; I48.92 Unspecified atrial flutter
CPT/HCPCS: 15271; 97597; Q4196

== ENCOUNTER → 2023-03-11 14:39 | Outpatient (CLI) | payer MEDICARE, OTHER, SELFPAY ==
[2022-04-02 04:28] VITALS: BMI 19.0
== END ==
LOC: WC 14:43
PROVIDERS: Family Provider Physician Assistant; PCP Family Medicine; Visit Provider Surgery
DX: L97.822 Non-pressure chronic ulcer of other part of left lower leg with fat layer exposed (principal); I87.2 Venous insufficiency (chronic) (peripheral); S81.811A Laceration without foreign body, right lower leg, initial encounter; R60.0 Localized edema; R23.3 Spontaneous ecchymoses; I73.81 Erythromelalgia; I10 Essential (primary) hypertension; Z92.25 Personal history of immunosuppression therapy; Z79.01 Long term (current) use of anticoagulants
CPT/HCPCS: 11042

== ENCOUNTER → 2023-03-14 10:06 | Outpatient (CLI) | payer MEDICARE, OTHER, SELFPAY ==
[2022-04-02 04:28] VITALS: BMI 19.0
== END ==
PROVIDERS: Family Provider Physician Assistant; PCP Family Medicine; Visit Provider Physician Assistant
DX: L97.822 Non-pressure chronic ulcer of other part of left lower leg with fat layer exposed (principal); I87.2 Venous insufficiency (chronic) (peripheral); S81.811A Laceration without foreign body, right lower leg, initial encounter; R60.0 Localized edema; R23.3 Spontaneous ecchymoses
CPT/HCPCS: 99213

== ENCOUNTER → 2023-03-18 09:58 | Outpatient (CLI) | payer MEDICARE, OTHER, SELFPAY ==
[2022-04-02 04:28] VITALS: BMI 19.0
== END ==
PROVIDERS: Family Provider Physician Assistant; PCP Family Medicine; Visit Provider Surgery
DX: L97.822 Non-pressure chronic ulcer of other part of left lower leg with fat layer exposed (principal); I87.2 Venous insufficiency (chronic) (peripheral); S81.811A Laceration without foreign body, right lower leg, initial encounter; R60.0 Localized edema; R23.3 Spontaneous ecchymoses; I73.81 Erythromelalgia; I10 Essential (primary) hypertension; I48.92 Unspecified atrial flutter; Z79.01 Long term (current) use of anticoagulants
CPT/HCPCS: 11042; 97597

== ENCOUNTER 2023-03-18 10:14 | Emergency (ER) | payer MEDICARE, OTHER, SELFPAY ==
[2022-04-02 04:28] VITALS: BMI 19.0
[2023-03-18 10:15] VITALS: BP 159/99; PULSE 121; RESP 15; TEMP 36.1; O2SAT 98; BMI 19.6
--- NOTE | 2023-03-18 10:28 | DI.RAD.S_ITS ---
PROCEDURE: XR SHOULDER LT MIN 2V INDICATIONS: fall,shoulder pain TECHNIQUE: 3 views of the shoulder were acquired. COMPARISON: None. FINDINGS: Bones: No fractures or dislocations. No suspicious bony lesions. Visualized ribs appear intact. Soft tissues: No suspicious soft tissue calcifications. IMPRESSION: No acute fracture. No osseous lesion. If symptoms and/or clinical suspicion for pathology persist, further assessment with repeat, or advanced imaging (e.g., CT, MRI, or bone scan) may be helpful for further assessment. Dictated by: Rhiannon Burns M.D. on 03/18/2023 at 11:19 Approved by: Rhiannon Burns M.D. on 03/18/2023 at 11:20
--- NOTE | 2023-03-18 10:28 | DI.RAD.S_ITS ---
PROCEDURE: XR RIBS LT MIN 3V W CXR1V INDICATIONS: fall TECHNIQUE: 2 views of the ribs were acquired, along with a single view chest. COMPARISON: None. FINDINGS: Surgical changes and devices: None. Bones and chest wall: No fractures or dislocations. No suspicious bony lesions. Overlying soft tissues appear unremarkable. Lungs and pleura: No pleural effusions or pneumothorax. Lungs appear clear. Mediastinum: Mediastinal contours appear normal. Heart size is normal. IMPRESSION: No acute fracture. No osseous lesion. If symptoms and/or clinical suspicion for pathology persist, further assessment with repeat, or advanced imaging (e.g., CT, MRI, or bone scan) may be helpful for further assessment. Dictated by: Rhiannon Burns M.D. on 03/18/2023 at 11:18 Approved by: Rhiannon Burns M.D. on 03/18/2023 at 11:19
--- NOTE | 2023-03-18 10:29 | DI.CT.S_ITS ---
PROCEDURE: CT HEAD/BRAIN WO CON INDICATIONS: fall,on thinners TECHNIQUE: Noncontrast 4.5 mm thick angled axial sections acquired from the foramen magnum to the vertex, with coronal and sagittal reformats. For radiation dose reduction, the following was used: automated exposure control, adjustment of mA and/or kV according to patient size. COMPARISON: [facility], CT, CT HEAD WITHOUT CONTRAST, 03/26/2022, 9:20. [facility], MR, MR BRAIN WITHOUT CONTRAST, 03/27/2022, 13:03. [facility], CT, CT CERVICAL SPINE WO CON, 03/18/2023, 10:37. [facility], CT, CT HEAD/BRAIN WO CON, 04/01/2022, 17:05. FINDINGS: Image quality: Mild streak artifact can be seen through the skull base. CSF spaces: Basal cisterns are patent. No extra-axial fluid collections. The ventricles are symmetric in size and shape. Brain: No intracranial bleeds or masses. There is cerebral volume loss for age, with resultant ventricular and sulcal prominence. There are periventricular and deep white matter chronic small vessel ischemic changes. There is intracranial internal carotid artery atherosclerosis. Skull and face: Calvarium and visualized facial bones appear intact, without suspicious lesions. Sinuses: Visualized sinuses and mastoids are clear. IMPRESSION: No acute intracranial hemorrhage is seen. No acute intracranial pathology. Dictated by: Sam Paul M.D. on 03/18/2023 at 10:10 Approved by: Sam Paul M.D. on 03/18/2023 at 10:11
--- NOTE | 2023-03-18 10:33 | DI.CT.S_ITS ---
PROCEDURE: CT CERVICAL SPINE WO CON INDICATIONS: fall,on thinners TECHNIQUE: Noncontrast 3 mm thick sections acquired from the skull base to the T4 level. Sagittal and coronal reformats were then constructed. For radiation dose reduction, the following was used: automated exposure control, adjustment of mA and/or kV according to patient size. COMPARISON: [facility], CT, CT ANGIO CHEST PE, 08/14/2021, 18:13. [facility], CT, CT HEAD/BRAIN WO CON, 03/18/2023, 10:37. [facility], CT, CT CERVICAL SPINE WO CON, 04/01/2022, 17:05. FINDINGS: Image quality: Excellent. Bones: No fractures or dislocations. Visualized superior ribs are intact. Reversal of the normal cervical lordosis is seen, with the apex at the C3-C4 level. No focal AP alignment abnormality is seen. There is [id number] disc space narrowing seen at C4-C5, with moderate to severe disc space narrowing at C5-C6 and C6-C7. Endplate irregularity and sclerosis are seen, which are worst at C5-C6. Posteriorly directed endplate osteophytes are seen at C5-C6 and C6-C7. Multiple levels of facet hypertrophy can be seen. Soft tissues: Prevertebral soft tissues are normal in thickness. No paravertebral hematomas. No apical pneumothoraces. Subpleural thickening can be seen involving the left lung apex, as on series 2, image 61, which is similar to the prior CT dated 04/01/2022. This is clearly improved compared to the 09/03/2021 examination. IMPRESSION: No displaced fracture or traumatic subluxation. Cervical spine degenerative changes are seen, which are overall most prominent at C5-C6. Right upper lobe opacity seen, which is nonspecific, yet may be related to pulmonary infarction, given prior imaging. Dictated by: Sam Paul M.D. on 03/18/2023 at 10:05 Approved by: Sam Paul M.D. on 03/18/2023 at 10:09
[2023-03-18 10:45] LABS: Add Manual Diff / Slide Review NO; Basophils Absolute Auto 200 /uL (0-100); Basophils Percent Auto 1.6 % (0-2); Eosinophils Absolute Auto 300 /uL (0-450); Eosinophils Percent Auto 2.1 % (2-4); Hematocrit 37.8 % (36-46); Hemoglobin 12.6 g/dL (12.0-16.0); Lymphocytes Absolute Auto 1900 /uL (1100-4500); Lymphocytes Percent Auto 15.3 % (25-40); Mean Corpuscular HGB Conc 33.4 % (30-36); Mean Corpuscular Hemoglobin 29.1 PG (26-34); Mean Corpuscular Volume 87.1 fL (80-100); Monocytes Absolute Auto 1100 /uL (0-900); Monocytes Percent Auto 8.7 % (3-14); Neutrophils Absolute Auto 8700 /uL (1500-7000); Neutrophils Percent Auto 72.3 % (50-75); Platelet Count 91 X10^3/uL (150-400); Red Blood Cell Count 4.34 X10^6/uL (4.0-5.2); Red Cell Distribution Width 14.5 % (11.6-14.8); White Blood Cell Count 12.1 X10^3/uL (4.5-11.0)
[2023-03-18 10:51] LABS: INR 0.9 (0.9-1.3); Prothrombin Time 10.7 SECONDS (9.4-12.5)
[2023-03-18 10:54] LABS: PTT Partial Thromboplastin Tim 34 SECONDS (25.1-36.5)
[2023-03-18 10:56] LABS: Alanine Aminotransferase 16 IU/L (<35); Albumin 4.3 g/dL (3.5-5.0); Albumin Globulin Ratio 1.6 (1.0-2.8); Alkaline Phosphatase 59 U/L (38-126); Aspartate Aminotransferase 25 IU/L (14-36); BUN Creatinine Ratio 27.6 (6-22); Bilirubin Total 0.8 mg/dL (0.2-1.3); Blood Urea Nitrogen 24 mg/dL (7-17); Calcium 9.7 mg/dL (8.4-10.2); Carbon Dioxide 26 mmol/L (22-32); Chloride 104 mmol/L (98-107); Creatine Kinase 74 U/L (30-135); Estimated Glomerular Filt Rate > 60 mL/min (>60); Globulin 2.7 g/dL (1.7-4.1); Glucose 89 mg/dL (80-110); HEMOLYSIS 17 (0-50); Lipase 77 U/L (23-300); Magnesium 2.2 mg/dL (1.6-2.3); Potassium 3.9 mmol/L (3.4-5.1); Sodium 136 mmol/L (137-145)
[2023-03-18 11:07] LABS: Troponin I 0.012 ng/mL (0.01-0.034)
--- NOTE | 2023-03-18 11:11 | PC.NURSE ---
Pt states that she came to the emergency dept today because she had an appointment with her wound doctor and he told her to come here for further evaluation after a fall yesterday. Pt reports that she was walking down an incline in her backyard, lost her balance and fell onto her left side. Pt states she struck the left side of her head and ribs and that her neck hurts. Pt denies LOC. A&Ox4. CRUDE OIL TREATER intact. Pt states that there is pain and tenderness upon palpation in neck.
[2023-03-18] MEDS: ACETAMINOPHEN 325 MG TABLET 650 MG PO (11:30)
--- NOTE | 2023-03-18 13:04 | ED_ITS ---
HPI - Dizziness General Chief Complaint: Syncope Stated Complaint: fell hit head needs head checked Time Seen by Provider: 03/18/23 11:19 Source: patient Mode of arrival: Ambulatory History of Present Illness HPI Narrative: [age] old female with history of ITP on chronic steroids recently started infusions. Patient had a fall while walking down a small hill patient states she tends to fall if she leans to far forward. She was going down a small nodule or heel and states there was nothing to brace herself on and just kept going and fell forward onto her left side. Patient states she also hit her left chest and shoulder. She states she is ground for about 45 minutes her assisted her up. She has since walk she went to a wound care appointment today who recommended that she be evaluated since she does have ITP and she is on Eliquis as well. Patient states has a mild headache. Denies neck pain. Denies chest pain acutely at this moment but was having pain on the left side of her chest. She states cough and movement do not seem to make it any worse. Has some pain in her shoulder but has good range of motion. Patient denies any numbness tingling otherwise. No nausea or vomiting. No shortness of breath, no other GI or urinary symptoms. She states she is feeling somewhat improved today. She also notes she is very much ready to return home. She does follow with hematology/oncology at [facility]. She has recently started an infusion once weekly for her ITP. Related Data Home Medications Medication Instructions Recorded Confirmed polyethylene glycol 3350 17 gram 17 gm PO BEDTIME PRN Constipation 05/26/17 02/16/23 oral powder packet (Miralax) ##0 cholecalciferol (vitamin D3) 50 50 mcg PO DAILY 02/08/20 02/16/23 mcg (2,000 unit) capsule (Vitamin D3) multivitamin 1 tab PO DAILY 02/08/20 02/16/23 vitamin B complex 1 tab PO DAILY 02/08/20 02/16/23 vitamin B12 0.5 mg-folic acid 1 mg 1 tab PO DAILY 04/05/20 02/16/23 tablet Previous Rx's Medication Instructions Recorded conjugated estrogens 0.625 mg/gram 0.625 mg vaginal 2XW uretheral 07/14/20 vaginal cream caruncle #30 grams aminocaproic acid 500 mg tablet 2 g (4 x 500 mg) PO QID PRN 10/30/21 (Amicar) Bleeding #32 tabs lisinopril 30 mg tablet 30 mg PO DAILY #30 tabs 04/05/22 lorazepam 0.5 mg tablet 0.5 mg PO BEDTIME #30 tabs 04/05/22 melatonin 3 mg tablet 3 mg PO BEDTIME #30 tabs 04/05/22 pantoprazole 20 mg tablet,delayed 20 mg PO 0600 #30 tabs 04/05/22 release prednisone 5 mg tablet 15 mg (3 x 5 mg) PO DIRECTED 04/05/22 #90 tabs phenazopyridine 100 mg tablet 100 mg PO TID PRN pain 6 doses #6 11/24/22 (Pyridium) tabs doxycycline hyclate 100 mg capsule 100 mg PO BID #14 caps 01/01/23 Allergies Allergy/AdvReac Type Severity Reaction Status Date / Time latex Allergy Mild LOCAL RASH Verified 03/18/23 10:30 Penicillins Allergy Mild CHILDHOOD Verified 03/18/23 10:30 Sulfa (Sulfonamide Allergy Mild SOMETHING Verified 03/18/23 10:30 Antibiotics) TO DO WITH BLADDER OR KIDNEY'S?? 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 Chronic steroid use Microscopic hematuria Scoliosis Anxiety Osteoporosis Atrial flutter Hypertension Surgical History History of splenectomy Status post hysterectomy History of tonsillectomy Family History Father Cancer Mother Bleeding disorder Brother Brain cancer Social History marital status: household members: spouse lives independently: Yes Smoking Status: Former smoker alcohol intake: former Smoking Status: Former smoker alcohol intake frequency: holidays/special occasions only Substance Use Type: does not use Exam Narrative Exam Narrative: GEN: well appearing thin elderly female, alert and oriented x 3, patient appears to be in mild distress. HEENT: Atraumatic, pupils are equal round reactive to light, extraocular movements are intact, nares are clear, there is no conjunctival pallor. Throat is clear without any exudates, erythema, tonsillar enlargement or uvular deviation HEART: Regular rate and rhythm without murmur, clicks, rubs. LUNGS:Lungs clear to auscultation, no wheezes, rales, crackles, chest moves symmetrically, no tachypnea accessory muscle use. Patient does not have any pain with palpation. ABD:bowel sounds normal, soft, non-tender, no guarding, rebound, rigidity, no masses noted, no hepatosplenomegaly :No CVA tenderness MSCL: Non-tender, no muscle atrophy, muscles strength 5/5 upper and lower extremities, full range of motion NEURO:CN 2-12 intact, sensation normal Initial Vital Signs Initial Vital Signs: Vital Signs Temperature 96.9 F L 03/18/23 10:15 Pulse Rate 121 H 03/18/23 10:15 Respiratory Rate 15 03/18/23 10:15 Blood Pressure 159/99 H 03/18/23 10:15 Pulse Oximetry 98 03/18/23 10:15 Oxygen Delivery Method Room Air 03/18/23 10:15 Course Orders Ordered: ED Orders 03/18/23 10:27 EKG-12 Lead Stat 03/18/23 10:28 XR ribs LT min 3V w CXR1V Stat XR shoulder LT min 2V Stat 03/18/23 10:29 CT head/brain wo con Stat 03/18/23 10:33 CT cervical spine wo con Stat 03/18/23 10:35 Complete Blood Count AUTO DIFF Stat Comprehensive Metabolic Panel Stat Lipase Stat Magnesium Stat PTT Partial Thromboplastin Nelson Stat Prothrombin Time INR Stat Troponin & CK Cardiac Panel Stat Discontinued Medications Acetaminophen (Acetaminophen 325 Mg Tablet) 650 mg PO NOW ONE Stop: 03/18/23 11:20 Last Admin: 03/18/23 11:30 Dose: 650 mg Documented By: NORMA Vital Signs Vital signs: Vital Signs - 8 hr 03/18/23 13:53 Pulse Rate 85 Respiratory Rate 18 Blood Pressure 144/86 H Pulse Oximetry 97 Oxygen Delivery Method Room Air MDM - Dizziness Lab Data 03/18/23 10:35 03/18/23 10:35 Labs: Lab Results 02/06/24 Range/Units 10:35 WBC 12.1 H (4.5-11.0) X10^3/uL RBC 4.34 (4.0-5.2) X10^6/uL Hgb 12.6 (12.0-16.0) g/dL Hct 37.8 (36-46) % MCV 87.1 (80-100) fL MCH 29.1 (26-34) PG MCHC 33.4 (30-36) % RDW 14.5 (11.6-14.8) % Plt Count 91 L (150-400) X10^3/uL Neut % (Auto) 72.3 (50-75) % Lymph % (Auto) 15.3 L (25-40) % Stewart % (Auto) 8.7 (3-14) % Eos % (Auto) 2.1 (2-4) % Baso % (Auto) 1.6 (0-2) % Neut # (Auto) 8700 H (2423-7266) /uL Lymph # (Auto) 1900 (0759-1540) /uL Stewart # (Auto) 1100 H (0-900) /uL Eos # (Auto) 300 (0-450) /uL Baso # (Auto) 200 H (0-100) /uL PT 10.7 (9.4-12.5) SECONDS INR 0.9 (0.9-1.3) APTT 34 (25.1-36.5) SECONDS Sodium 136 L (137-145) mmol/L Potassium 3.9 (3.4-5.1) mmol/L Chloride 104 (98-107) mmol/L Carbon Dioxide 26 (22-32) mmol/L BUN 24 H (7-17) mg/dL Creatinine 0.87 (0.52-1.04) mg/dL Estimated GFR > 60 (>60) mL/min BUN/Creatinine Ratio 27.6 H (6-22) Glucose 89 (80-110) mg/dL Calcium 9.7 (8.4-10.2) mg/dL Magnesium 2.2 (1.6-2.3) mg/dL Total Bilirubin 0.8 (0.2-1.3) mg/dL AST 25 (14-36) IU/L ALT 16 (<35) IU/L Alkaline Phosphatase 59 (38-126) U/L Total Creatine Kinase 74 (30-135) U/L Troponin I 0.012 (0.01-0.034) ng/mL Total Protein 7.0 (6.3-8.2) g/dL Albumin 4.3 (3.5-5.0) g/dL Globulin 2.7 (1.7-4.1) g/dL Albumin/Globulin Ratio 1.6 (1.0-2.8) Lipase 77 (23-300) U/L Imaging Data CT scan - head: Radiologist's Impression: Priscilla Mahan?(Mayur)??82??F??1940 ? Allergy/Adv: latex, Penicillins, Sulfa (Sulfonamide Antibiotics), azithromycin, iodine (More??) Close Cervical Spine CT (Signed) Sam Paul - 03/18/[address] (Signed) Sam Paul - 03/18/23 Shoulder X-Ray (Signed) Rhiannon Burns - 03/18/23 Ribs X-Ray (Signed) Rhiannon Burns - 03/18/23 Chest X-Ray (Signed) Jos Tyler - 11/29/22 Telemetry Strips 04/02/22 Renal Ultrasound (Signed) Khris Viramontes - 04/01/[address] (Signed) Sam Paul - 04/01/[address] (Signed) Sam Paul - 04/01/22 Chest X-Ray (Signed) Manolo Li - 04/01/[address] (Signed) Rhiannon Burns - 03/14/22 Chest X-Ray (Signed) Jose Antony - 03/14/[address] (Signed) Jayy Stevens - 02/14/22 Chest/Abdomen/Pelvis CTA (Signed) Obdulio,Carlo - 11/23/21 Chest X-Ray (Signed) Call,Carlo - 11/23/21 Wrist X-Ray (Signed) Sam Paul - 11/03/[address] (Signed) Hanny Root - 08/15/21 Vascular Ultrasound (Signed) Jose Durham - 08/15/21 Chest X-Ray (Signed) Jose Durham - 08/14/21 Abdomen X-Ray (Signed) Patsy Pierre - 07/02/[address] (Signed) Ted Ramos - 06/18/20 Chest X-Ray (Signed) Hanny Root - 05/17/20 Abdomen/Pelvis CT (Signed) Renay Ochoa - 05/17/20 Telemetry Strips 04/24/[address] (Signed) Rahul Santoyo - 04/24/20 Chest X-Ray (Signed) Marky Renteria - 04/24/[address] (Signed) Bismark Lee - 04/21/20 Chest/Abdomen/Pelvis CT (Signed) Bismark Lee - 03/03/20 Telemetry Strips 02/26/20 Pelvis Ultrasound (Signed) Marky Renteria - 02/10/20 Launch?[place] [address] CT Scan Report Signed Patient: Priscilla Mahan MR#: [id number] : 1940 Acct:[id number] Age/Sex: 82 / F Date of Service: 03/18/23 Loc: ED Accession Number: [id number] Procedure: CT head/brain wo con Ordering Provider: Amara Royal D.O. PROCEDURE: CT HEAD/BRAIN WO CON INDICATIONS: fall,on thinners TECHNIQUE: Noncontrast 4.5 mm thick angled axial sections acquired from the foramen magnum to the vertex, with coronal and sagittal reformats. For radiation dose reduction, the following was used: automated exposure control, adjustment of mA and/or kV according to patient size. COMPARISON: [facility], CT, CT HEAD WITHOUT CONTRAST, 03/26/2022, 9:20. [facility], MR, MR BRAIN WITHOUT CONTRAST, 03/27/2022, 13:03. [facility], CT, CT CERVICAL SPINE WO CON, 03/18/2023, 10:37. [facility], CT, CT HEAD/BRAIN WO CON, 04/01/2022, 17:05. FINDINGS: Image quality: Mild streak artifact can be seen through the skull base. CSF spaces: Basal cisterns are patent. No extra-axial fluid collections. The ventricles are symmetric in size and shape. Brain: No intracranial bleeds or masses. There is cerebral volume loss for age, with resultant ventricular and sulcal prominence. There are periventricular and deep white matter chronic small vessel ischemic changes. There is intracranial internal carotid artery atherosclerosis. Skull and face: Calvarium and visualized facial bones appear intact, without suspicious lesions. Sinuses: Visualized sinuses and mastoids are clear. IMPRESSION: No acute intracranial hemorrhage is seen. No acute intracranial pathology. Dictated by: Sam Paul M.D. on 03/18/2023 at 10:10 Approved by: Sam Paul M.D. on 03/18/2023 at 10:11 CT - cervical spine: Radiologist's Impression: [address] [address] [address] Scan Report Signed Patient: Priscilla Mahan MR#: [id number] : 1940 Acct:[id number] Age/Sex: 82 / F Date of Service: 03/18/23 Loc: ED Accession Number: [id number] Procedure: CT cervical spine wo con Ordering Provider: Amara Royal D.O. PROCEDURE: CT CERVICAL SPINE WO CON INDICATIONS: fall,on thinners TECHNIQUE: Noncontrast 3 mm thick sections acquired from the skull base to the T4 level. Sagittal and coronal reformats were then constructed. For radiation dose reduction, the following was used: automated exposure control, adjustment of mA and/or kV according to patient size. COMPARISON: [facility], CT, CT ANGIO CHEST PE, 08/14/2021, 18:13. [facility], CT, CT HEAD/BRAIN WO CON, 03/18/2023, 10:37. [facility], CT, CT CERVICAL SPINE WO CON, 04/01/2022, 17:05. FINDINGS: Image quality: Excellent. Bones: No fractures or dislocations. Visualized superior ribs are intact. Reversal of the normal cervical lordosis is seen, with the apex at the C3-C4 level. No focal AP alignment abnormality is seen. There is cpmu-wh-espenszk disc space narrowing seen at C4-C5, with moderate to severe disc space narrowing at C5-C6 and C6-C7. Endplate irregularity and sclerosis are seen, which are worst at C5-C6. Posteriorly directed endplate osteophytes are seen at C5-C6 and C6-C7. Multiple levels of facet hypertrophy can be seen. Soft tissues: Prevertebral soft tissues are normal in thickness. No paravertebral hematomas. No apical pneumothoraces. Subpleural thickening can be seen involving the left lung apex, as on series 2, image 61, which is similar to the prior CT dated 04/01/2022. This is clearly improved compared to the 09/03/2021 examination. IMPRESSION: No displaced fracture or traumatic subluxation. Cervical spine degenerative changes are seen, which are overall most prominent at C5-C6. Right upper lobe opacity seen, which is nonspecific, yet may be related to pulmonary infarction, given prior imaging. Dictated by: Sam Paul M.D. on 03/18/2023 at 10:05 Approved by: Sam Paul M.D. on 03/18/2023 at 10:09 Extremity x-ray #1: Radiologist's Impression: Close Cervical Spine CT (Signed) Sam Paul - 03/18/[address] (Signed) Sam Paul - 03/18/23 Shoulder X-Ray (Signed) Rhiannon Burns - 03/18/23 Ribs X-Ray (Signed) BurnsRhiannon - 03/18/23 Chest X-Ray (Signed) Jos Tyler - 11/29/22 Telemetry Strips 04/02/22 Renal Ultrasound (Signed) Khris Viramontes - 04/01/[address] (Signed) Sam Paul - 04/01/[address] (Signed) Sam Paul - 04/01/22 Chest X-Ray (Signed) Manolo Li - 04/01/[address] (Signed) Rhiannon Burns - 03/14/22 Chest X-Ray (Signed) Jose Antony - 03/14/[address] (Signed) Jayy Stevens - 02/14/22 Chest/Abdomen/Pelvis CTA (Signed) Carlo Mak - 11/23/21 Chest X-Ray (Signed) Call,Carlo - 11/23/21 Wrist X-Ray (Signed) Sam Paul - 11/03/[address] (Signed) Hanny Root - 08/15/21 Vascular Ultrasound (Signed) DurhamStevo landinw - 08/15/21 Chest X-Ray (Signed) DurhamJose - 08/14/21 Abdomen X-Ray (Signed) DustinsiaPatsy - 07/02/[address] (Signed) Ted Ramos - 06/18/20 Chest X-Ray (Signed) Triston Rootence - 05/17/20 Abdomen/Pelvis CT (Signed) GabrielaRenay - 05/17/20 Telemetry Strips 04/24/[address] (Signed) Rahul Santoyo - 04/24/20 Chest X-Ray (Signed) Marky Renteria - 04/24/[address] (Signed) Bismark Lee - 04/21/20 Chest/Abdomen/Pelvis CT (Signed) Bismark Lee - 03/03/20 Telemetry Strips 02/26/20 Pelvis Ultrasound (Signed) Marky Renteria - 02/10/20 [place] [address] XRay Report Signed Patient: Priscilla Mahan MR#: [id number] : 1940 Acct:[id number] Age/Sex: 82 / F Date of Service: 03/18/23 Loc: ED Accession Number: [id number] Procedure: XR shoulder LT min 2V Ordering Provider: Amara Royal D.O. PROCEDURE: XR SHOULDER LT MIN 2V INDICATIONS: fall,shoulder pain TECHNIQUE: 3 views of the shoulder were acquired. COMPARISON: None. FINDINGS: Bones: No fractures or dislocations. No suspicious bony lesions. Visualized ribs appear intact. Soft tissues: No suspicious soft tissue calcifications. IMPRESSION: No acute fracture. No osseous lesion. If symptoms and/or clinical suspicion for pathology persist, further assessment with repeat, or advanced imaging (e.g., CT, MRI, or bone scan) may be helpful for further assessment. Dictated by: Rhiannon Burns M.D. on 03/18/2023 at 11:19 Approved by: Rhiannon Burns M.D. on 03/18/2023 at 11:20 Chest x-ray: Radiologist's Impression: Close Cervical Spine CT (Signed) Sam Paul - 03/18/[address] (Signed) [place],Sam - 03/18/23 Shoulder X-Ray (Signed) Burns,Jessicar - 03/18/23 Ribs X-Ray (Signed) Burns,Muneer - 03/18/23 Chest X-Ray (Signed) Jos Tyler - 11/29/22 Telemetry Strips 04/02/22 Renal Ultrasound (Signed) Ana MKhris - 04/01/[address] (Signed) Beverly,Sam - 04/01/[address] (Signed) Beverly,Sam - 04/01/22 Chest X-Ray (Signed) GuillermoManolo - 04/01/[address] (Signed) GrantJessicaaracelis - 03/14/22 Chest X-Ray (Signed) Jose Antony - 03/14/[address] (Signed) Jayy Stevens - 02/14/22 Chest/Abdomen/Pelvis CTA (Signed) Carlo Mak - 11/23/21 Chest X-Ray (Signed) Call,Carlo - 11/23/21 Wrist X-Ray (Signed) Beverly,Sam - 11/03/[address] (Signed) Hanny Root - 08/15/21 Vascular Ultrasound (Signed) Jose Durham - 08/15/21 Chest X-Ray (Signed) Jose Durham - 08/14/21 Abdomen X-Ray (Signed) Patsy Pierre - 07/02/[address] (Signed) Ted Ramos - 06/18/20 Chest X-Ray (Signed) Hanny Root - 05/17/20 Abdomen/Pelvis CT (Signed) Renay Ochoa - 05/17/20 Telemetry Strips 04/24/[address] (Signed) Rahul Santoyo - 04/24/20 Chest X-Ray (Signed) Marky Renteria - 04/24/[address] (Signed) Bismark Lee - 04/21/20 Chest/Abdomen/Pelvis CT (Signed) Bismark Lee - 03/03/20 Telemetry Strips 02/26/20 Pelvis Ultrasound (Signed) Marky Renteria - 02/10/[address] [address] XRay Report Signed Patient: Priscilla Mahan MR#: [id number] : 1940 Acct:[id number] Age/Sex: 82 / F Date of Service: 03/18/23 Loc: ED Accession Number: [id number] Procedure: XR ribs LT min 3V w CXR1V Ordering Provider: Amara Royal D.O. PROCEDURE: XR RIBS LT MIN 3V W CXR1V INDICATIONS: fall TECHNIQUE: 2 views of the ribs were acquired, along with a single view chest. COMPARISON: None. FINDINGS: Surgical changes and devices: None. Bones and chest wall: No fractures or dislocations. No suspicious bony lesions. Overlying soft tissues appear unremarkable. Lungs and pleura: No pleural effusions or pneumothorax. Lungs appear clear. Mediastinum: Mediastinal contours appear normal. Heart size is normal. IMPRESSION: No acute fracture. No osseous lesion. If symptoms and/or clinical suspicion for pathology persist, further assessment with repeat, or advanced imaging (e.g., CT, MRI, or bone scan) may be helpful for further assessment. Dictated by: Rhiannon Burns M.D. on 03/18/2023 at 11:18 Approved by: Rihannon Burns M.D. on 03/18/2023 at 11:19 ECG Data Attestation: I personally reviewed and interpreted this ECG as follows: Interpretation: Of 114 LA 162 QRS 82 QTC 454. Indeterminate rhythm, patient has quite a bit of motion artifact. Was repeated multiple times without any resolution. Patient has prior from 11/29/2022 nonspecific change MDM Narrative Medical decision making narrative: 82-year-old female who states she was going down hill she normally tends to fall she is leaning forward and was in his position was unable to stop herself and fell forward striking left head shoulder and ribs. Had some chest pain and shoulder pain but has good range of motion. States that is somewhat improved still little bit of a headache. She does have a history of ITP and is on Eliquis as well. This occurred yesterday. Platelets are 91 today, hemoglobin is 12, glucose sites are 12, renal function electrolytes are appropriate BUN 24 with negative coags glucose 89 LFTs are negative with a negative troponin. Head CT shows no acute change, CT C-spine shows no significant new cervical changes. Does have little bit of right upper lobe change noted. Shoulder and rib x-rays are negative. EKG was reviewed patient is slightly tachycardic but has improved here in the department. Patient has been ambulating and going about her normal activities at without any additional falls and felt appropriate for discharge home. Discharge Plan Departure Patient Disposition: Home Clinical Impression: Fall, Left shoulder pain Instructions: Exercises to Help Prevent Falls, How to Prevent Falls Activity Restrictions/Additional Instructions: Please follow-up with your physician if you are following frequently sometimes they can refer you for physical therapy to help prevent falls. You may continue your home medications as prescribed. Your platelets today were 91, please share this information with your hematology team. Please return for new or worsening symptoms, severe headaches, new neck or back pain, passing out, new chest pain or shortness of breath, persistent vomiting, new numbness tingling or weakness or other new or concerning changes. Prescriptions: No Action phenazopyridine [Pyridium] 100 mg tablet 100 mg PO TID PRN (Reason: pain) Qty: 6 0RF doxycycline hyclate 100 mg capsule 100 mg PO BID Qty: 14 0RF polyethylene glycol 3350 [Miralax] 17 GM powder in packet 17 gm PO BEDTIME PRN (Reason: Constipation) Qty: 0 conjugated estrogens 0.625 mg/gram cream 0.625 mg vaginal 2XW Qty: 30 3RF Rx Instructions: Apply 1g to vagina 2x weekly, including urethra. multivitamin Tablet 1 tab PO DAILY vitamin B complex Tablet 1 tab PO DAILY cholecalciferol (vitamin D3) [Vitamin D3] 50 mcg (2,000 unit) Capsule 50 mcg PO DAILY vitamin B24-fryss acid 0.5-1 mg Tablet 1 tab PO DAILY aminocaproic acid [Amicar] 500 mg Tablet 2 g PO QID PRN (Reason: Bleeding) Qty: 32 0RF Rx Instructions: take as needed when bleeding occurs melatonin 3 mg Tablet 3 mg PO BEDTIME Qty: 30 0RF pantoprazole 20 mg Tablet,Delayed Release (Dr/Ec) 20 mg PO 0600 Qty: 30 0RF lorazepam 0.5 mg tablet 0.5 mg PO BEDTIME Qty: 30 0RF Rx Instructions: take by mouth once daily at bedtime prednisone 5 mg Tablet 15 mg PO DIRECTED Qty: 90 2RF Rx Instructions: Take 3 tablets (15mg) once daily by mouth. lisinopril 30 mg tablet 30 mg PO DAILY Qty: 30 0RF Referrals: Jayson Machado MD [Primary Care Provider] - Stand Alone Forms: Patient Portal/API
[2023-03-18 13:53] VITALS: BP 144/86; PULSE 85; RESP 18; O2SAT 97
== END 2023-03-18 14:12 | disposition home or self-care (01) ==
PROVIDERS: Emergency Provider Emergency Medicine; Family Provider Physician Assistant; PCP Family Medicine
DX: M25.512 Pain in left shoulder (principal); R07.9 Chest pain, unspecified; R55 Syncope and collapse; R07.81 Pleurodynia; R00.0 Tachycardia, unspecified; Z79.01 Long term (current) use of anticoagulants; W18.30XA Fall on same level, unspecified, initial encounter; L97.822 Non-pressure chronic ulcer of other part of left lower leg with fat layer exposed; I87.2 Venous insufficiency (chronic) (peripheral); S81.811A Laceration without foreign body, right lower leg, initial encounter; R60.0 Localized edema; R23.3 Spontaneous ecchymoses; I48.92 Unspecified atrial flutter; I73.81 Erythromelalgia; I10 Essential (primary) hypertension
CPT/HCPCS: 11042; 36415; 70450; 71101; 72125; 73030; 80053; 82550; 83690; 83735; 84484; 85025; 85610; 85730; 93005; 93010; 97597; 99284

== ENCOUNTER → 2023-03-25 11:30 | Outpatient (CLI) | payer MEDICARE, OTHER, SELFPAY ==
[2022-04-02 04:28] VITALS: BMI 19.0
== END ==
LOC: WC 11:31
PROVIDERS: Family Provider Physician Assistant; PCP Family Medicine; Visit Provider Surgery
DX: L97.822 Non-pressure chronic ulcer of other part of left lower leg with fat layer exposed (principal); I87.2 Venous insufficiency (chronic) (peripheral); R60.0 Localized edema; R23.3 Spontaneous ecchymoses; D69.3 Immune thrombocytopenic purpura; Z79.01 Long term (current) use of anticoagulants; Z92.25 Personal history of immunosuppression therapy; I73.81 Erythromelalgia
CPT/HCPCS: 15271; Q4196

== ENCOUNTER → 2023-03-31 14:36 | Outpatient (CLI) | payer MEDICARE, OTHER, SELFPAY ==
[2022-04-02 04:28] VITALS: BMI 19.0
== END ==
LOC: WC 14:40
PROVIDERS: Family Provider Physician Assistant; PCP Family Medicine; Referring Provider Family Medicine; Visit Provider Surgery
DX: L97.822 Non-pressure chronic ulcer of other part of left lower leg with fat layer exposed (principal); I87.2 Venous insufficiency (chronic) (peripheral); Z79.01 Long term (current) use of anticoagulants; R60.0 Localized edema; R23.3 Spontaneous ecchymoses; I73.81 Erythromelalgia; I10 Essential (primary) hypertension; I48.92 Unspecified atrial flutter
CPT/HCPCS: 15271; Q4196

== ENCOUNTER → 2023-04-07 15:05 | Outpatient (CLI) | payer MEDICARE, OTHER, SELFPAY ==
[2022-04-02 04:28] VITALS: BMI 19.0
== END ==
LOC: WC 15:07
PROVIDERS: Family Provider Physician Assistant; PCP Family Medicine; Visit Provider Surgery
DX: L97.822 Non-pressure chronic ulcer of other part of left lower leg with fat layer exposed (principal); I87.2 Venous insufficiency (chronic) (peripheral); S81.812A Laceration without foreign body, left lower leg, initial encounter; I73.81 Erythromelalgia; D69.3 Immune thrombocytopenic purpura; Z79.01 Long term (current) use of anticoagulants; I10 Essential (primary) hypertension; I48.92 Unspecified atrial flutter; R60.0 Localized edema; R23.3 Spontaneous ecchymoses; Z79.620 Long term (current) use of immunosuppressive biologic
CPT/HCPCS: 15271; 99213; Q4196

== ENCOUNTER → 2023-04-14 12:51 | Outpatient (CLI) | payer MEDICARE, OTHER, SELFPAY ==
[2022-04-02 04:28] VITALS: BMI 19.0
== END ==
LOC: WC 12:53
PROVIDERS: Family Provider Physician Assistant; PCP Family Medicine; Referring Provider Family Medicine; Visit Provider Surgery
DX: L97.822 Non-pressure chronic ulcer of other part of left lower leg with fat layer exposed (principal); I87.2 Venous insufficiency (chronic) (peripheral); S81.812A Laceration without foreign body, left lower leg, initial encounter; R60.0 Localized edema; R23.3 Spontaneous ecchymoses; R23.4 Changes in skin texture
CPT/HCPCS: 99213

== ENCOUNTER → 2023-04-21 15:27 | Outpatient (CLI) | payer MEDICARE, OTHER, SELFPAY ==
[2022-04-02 04:28] VITALS: BMI 19.0
== END ==
LOC: WC 15:28
PROVIDERS: Family Provider Physician Assistant; PCP Family Medicine; Visit Provider Surgery
DX: I87.2 Venous insufficiency (chronic) (peripheral) (principal); S81.812D Laceration without foreign body, left lower leg, subsequent encounter; R60.0 Localized edema; Z79.01 Long term (current) use of anticoagulants
CPT/HCPCS: 99213

== ENCOUNTER → 2023-05-05 14:35 | Outpatient (CLI) | payer MEDICARE, OTHER, SELFPAY ==
[2022-04-02 04:28] VITALS: BMI 19.0
== END ==
LOC: WC 14:36
PROVIDERS: Family Provider Physician Assistant; PCP Family Medicine; Visit Provider Surgery
DX: S81.802A Unspecified open wound, left lower leg, initial encounter (principal); L98.8 Other specified disorders of the skin and subcutaneous tissue; S81.812A Laceration without foreign body, left lower leg, initial encounter; I87.2 Venous insufficiency (chronic) (peripheral); R23.3 Spontaneous ecchymoses; R60.0 Localized edema; I73.81 Erythromelalgia; Z92.25 Personal history of immunosuppression therapy; Z79.01 Long term (current) use of anticoagulants
CPT/HCPCS: 11042; 97597; 99213; 99214

== ENCOUNTER → 2023-05-08 14:21 | Outpatient (CLI) | payer MEDICARE, OTHER, SELFPAY ==
[2022-04-02 04:28] VITALS: BMI 19.0
== END ==
LOC: WC 05-13 14:22
PROVIDERS: Family Provider Physician Assistant; PCP Family Medicine; Visit Provider Surgery
DX: S81.812A Laceration without foreign body, left lower leg, initial encounter (principal); M79.81 Nontraumatic hematoma of soft tissue; R60.0 Localized edema; R23.3 Spontaneous ecchymoses
CPT/HCPCS: 99213

== ENCOUNTER → 2023-05-13 09:30 | Outpatient (CLI) | payer MEDICARE, OTHER, SELFPAY ==
[2022-04-02 04:28] VITALS: BMI 19.0
--- NOTE | 2023-05-18 09:07 | ED_ITS ---
HPI - GI Bleed General Time Seen by Provider: 05/18/23 10:14 Source: patient, EMS, RN notes reviewed and old records reviewed Mode of arrival: EMS Limitations: no limitations History of Present Illness HPI Narrative: 82-year-old female with history of ITP on chronic steroids, hypertension, atrial fibrillation no longer on Eliquis who presents with complaint of black tarry stools as well as bleeding from her mouth or possibly posterior nosebleed. Patient states she started noticing blood in her stool yesterday, as well as a little bit within her mouth. She states she did not think that she had a nosebleed. She does not think that she is vomiting up any blood. Patient states she has been having bruising. She denies any syncope she is felt mildly dizzy. No chest pain, trips, describes some mild shortness of breath. Denies any abdominal pain. Denies any nausea or vomiting. Has had watery black stools. Patient has had bleeding before with her ITP. She does note that her steroids were at 60 mg they were recently decreased from 60 mg to 10 mg about a week ago and she states there was not a taper. She has required transfusions platelets in the past. She states she has been following with Hematology/Oncology through [place], saw Dr. Johns last but states he was a traveler/locums. She has had IVIG in the past unclear when her last dose was. Related Data Home Medications Medication Instructions Recorded Confirmed polyethylene glycol 3350 17 gram 17 gm PO BEDTIME Constipation ##0 05/26/17 05/18/23 oral powder packet (Miralax) cholecalciferol (vitamin D3) 25 1 mcg PO DAILY 05/18/23 05/18/23 mcg (1,000 unit) capsule (Vitamin D3) diltiazem HCl 30 mg tablet 30 mg PO BID 05/18/23 05/18/23 estradiol 0.01% (0.1 mg/gram) 2 g vaginal 2XW 05/18/23 05/18/23 vaginal cream melatonin 3 mg capsule 3 mg PO BEDTIME 05/18/23 05/18/23 multivit with minerals-iron 18 1 tab PO DAILY 05/18/23 05/18/23 mg-folic ac 400 mcg-vit K 25 mcg tablet (Adults Multivitamin) prednisone 10 mg tablet 10 mg PO DAILY 05/18/23 05/18/23 vitamin B complex 1 tab PO DAILY 05/18/23 05/18/23 Previous Rx's Medication Instructions Recorded lorazepam 0.5 mg tablet 0.5 mg PO BEDTIME #30 tabs 04/05/22 Allergies Allergy/AdvReac Type Severity Reaction Status Date / Time latex Allergy Mild LOCAL RASH Verified 03/18/23 10:30 Penicillins Allergy Mild CHILDHOOD Verified 03/18/23 10:30 Sulfa (Sulfonamide Allergy Mild SOMETHING Verified 03/18/23 10:30 Antibiotics) TO DO WITH BLADDER OR KIDNEY'S?? 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 Chronic steroid use Microscopic hematuria Scoliosis Anxiety Osteoporosis Atrial flutter Hypertension Surgical History History of splenectomy Status post hysterectomy History of tonsillectomy Family History Father Cancer Mother Bleeding disorder Brother Brain cancer Social History marital status: household members: spouse lives independently: Yes Smoking Status: Former smoker alcohol intake: former Smoking Status: Former smoker alcohol intake frequency: holidays/special occasions only Substance Use Type: does not use Exam Narrative Exam Narrative: GEN: Thin elderly appearing female, alert and oriented x 3, patient appears to be in mild distress. HEENT: Atraumatic, pupils are equal round reactive to light, extraocular movements are intact, nares are clear, TMs are clear with no fluid, there is no conjunctival pallor. Throat is clear without any exudates, erythema, tonsillar enlargement or uvular deviation, patient has some scant dried blood within her mouth along her gums, there are 3 areas of bruising along the upper inner gumline adjacent to her teeth that may have been potential sources of bleeding. No active bleeding currently. HEART: Regular rate and rhythm without murmur, clicks, rubs. pulses are equal in upper and lower extremities, patient has a edema bilateral lower extremities LUNGS:Lungs clear to auscultation, no wheezes, rales, crackles, chest moves symmetrically, no tachypnea or accessory muscle use ABD:bowel sounds normal, soft, non-tender, no guarding, rebound, rigidity, no masses noted, no hepatosplenomegaly :No CVA tenderness MSCL: Non-tender, no muscle atrophy, muscles strength 5/5 upper and lower extremities, full range of motion, normal gait NEURO:CN 2-12 intact, sensation normal SKIN: Patient has various areas of ecchymosis on upper and lower extremities., occasional petechia but not regularly. Course Orders Ordered: ED Orders 05/18/23 09:06 EKG-12 Lead Stat 05/18/23 09:33 CT head/brain wo con Stat GI Bleed [CT angio Abd/Pel GI Bleed] Stat MDM - GI Bleed Lab Data 05/18/23 09:00 05/18/23 09:00 Labs: Lab Results 05/18/23 05/18/23 Range/Units 09:00 09:05 WBC Cancelled RBC Cancelled Hgb Cancelled Hct Cancelled MCV Cancelled MCH Cancelled MCHC Cancelled RDW Cancelled Plt Count Cancelled Neut % (Auto) Cancelled Lymph % (Auto) Cancelled [place] % (Auto) Cancelled Eos % (Auto) Cancelled Baso % (Auto) Cancelled Neut # (Auto) Cancelled Lymph # (Auto) Cancelled [place] # (Auto) Cancelled Eos # (Auto) Cancelled Baso # (Auto) Cancelled Nucleated RBCs Cancelled Hypersegmented Neuts Cancelled Hypogranular Neuts Cancelled Reactive Lymphocytes Cancelled Smudge Cells Cancelled Other Cell Type Cancelled Toxic Granulation Cancelled Toxic Vacuolation Cancelled Dohle Bodies Cancelled Jacklyn Rods Cancelled WBC Morphology Comment Cancelled Platelet Estimate Cancelled Clumped Platelets Cancelled Plt Morphology Comment Cancelled RBC Morphology Cancelled Dimorphic RBCs Cancelled Polychromasia Cancelled Hypochromasia Cancelled Poikilocytosis Cancelled Basophilic Stippling Cancelled Anisocytosis Cancelled Microcytosis Cancelled Macrocytosis Cancelled Spherocytes Cancelled Pappenheimer Bodies Cancelled Sickle Cells Cancelled Target Cells Cancelled Tear Drop Cells Cancelled Ovalocytes Cancelled Stomatocytes Cancelled Helmet Cells Cancelled Bolaños-Megargel Bodies Cancelled [place] Rings Cancelled Scuddy Cells Cancelled Acanthocytes (Spur) Cancelled Rouleaux Cancelled Schistocytes Cancelled PT Cancelled INR Cancelled APTT Cancelled Sodium Cancelled Potassium Cancelled Chloride Cancelled Carbon Dioxide Cancelled BUN Cancelled Creatinine Cancelled Estimated GFR Cancelled BUN/Creatinine Ratio Cancelled Glucose Cancelled Calcium Cancelled Total Bilirubin Cancelled AST Cancelled ALT Cancelled Alkaline Phosphatase Cancelled Total Protein Cancelled Albumin Cancelled Globulin Cancelled Albumin/Globulin Ratio Cancelled Blood Type Cancelled Antibody Screen Cancelled Imaging Data CT scan - head: Radiologist's Impression: Priscilla Mahan?(Mayur)??82??F??1940 ? Allergy/Adv: latex, Penicillins, Sulfa (Sulfonamide Antibiotics), azithromycin, iodine (More??) Close Head CT (Signed) Nicolás Blake - 05/18/23 Abdomen/Pelvis CTA (Signed) Nicolás Blake - 05/18/[address] (Signed) Sam Paul - 03/18/[address] (Signed) Sam Paul - 03/18/23 Shoulder X-Ray (Signed) Burns,Boeer - 03/18/23 Ribs X-Ray (Signed) Bursn,Muneer - 03/18/23 Chest X-Ray (Signed) Jos Tyler - 11/29/22 Telemetry Strips 04/02/22 Renal Ultrasound (Signed) Khris Viramontes - 04/01/[address] (Signed) Sam Paul - 04/01/[address] (Signed) Eli Paule - 04/01/22 Chest X-Ray (Signed) Manolo Li - 04/01/[address] (Signed) Bunrs,Muneer - 03/14/22 Chest X-Ray (Signed) Jose Antony - 03/14/[address] (Signed) Jayy Stevens - 02/14/22 Chest/Abdomen/Pelvis CTA (Signed) Carlo Mak - 11/23/21 Chest X-Ray (Signed) Call,Carlo - 11/23/21 Wrist X-Ray (Signed) Eli Paule - 11/03/[address] (Signed) Hanny Root - 08/15/21 Vascular Ultrasound (Signed) Jose Durham - 08/15/21 Chest X-Ray (Signed) Jose Durham - 08/14/21 Abdomen X-Ray (Signed) Patys Pierre - 07/02/[address] (Signed) Ted Ramos - 06/18/20 Chest X-Ray (Signed) Hanny Root - 05/17/20 Abdomen/Pelvis CT (Signed) Renay Ochoa - 05/17/20 Telemetry Strips 04/24/[address] (Signed) Rahul Santoyo - 04/24/20 Chest X-Ray (Signed) Marky Renteria - 04/24/[address] (Signed) Bismark Lee - 04/21/20 Chest/Abdomen/Pelvis CT (Signed) Bismark Lee - 03/03/20 Telemetry Strips 02/26/20 Pelvis Ultrasound (Signed) Marky Renteria - 02/10/20 Hip X-Ray (Signed) Bismark Lee - 08/17/19 Head/Neck CTA (Signed) Sam Paul - 03/15/19 Echocardiogram Ultrasound (Signed) Kishore Chadwick - 12/17/18 Carotid Doppler Study (Signed) Hanny Root - 12/17/18 Tibia/Fibula X-Ray (Signed) Berlin Rolle - 10/17/18 Ankle X-Ray (Signed) [place] Rolle - 10/17/18 DEXA Result 08/11/18 Outside DI 07/22/18 Launch?[place] [id number] CT Scan Report Signed Patient: Priscilla Mahan MR#: [id number] : 1940 Acct:[id number] Age/Sex: 82 / F Date of Service: 05/18/23 Loc: Accession Number: [id number] Procedure: CT head/brain wo con Ordering Provider: Amara Royal D.O. PROCEDURE: CT HEAD/BRAIN WO CON INDICATIONS: r/o spontaneous bleed, platelets 13, pt bleeding TECHNIQUE: Noncontrast 4.5 mm thick angled axial sections acquired from the foramen magnum to the vertex, with coronal and sagittal reformats. For radiation dose reduction, the following was used: automated exposure control, adjustment of mA and/or kV according to patient size. COMPARISON: Located Within [facility], CT, CT HEAD/BRAIN WO CON, 03/18/2023, 10:37. FINDINGS: Image quality: Diagnostic. CSF spaces: Basal cisterns are patent. No extra-axial fluid collections. Ventricles are normal in size and shape. Brain: No midline shift. No intracranial masses or hemorrhage. Moody-white matter interface is normal. Skull and face: Calvarium and visualized facial bones are intact, without suspicious lesions. Sinuses: Visualized sinuses and mastoids are clear. IMPRESSION: Atrophy and chronic ischemic change without intracranial hemorrhage or mass effect. Approved by: Nicolás Blake M.D. on 05/18/2023 at 10:19 CT scan - abdomen/pelvis: Radiologist's Impression: Priscilla Mahan Haris?(Mayur)??82??F??1940 ? Allergy/Adv: latex, Penicillins, Sulfa (Sulfonamide Antibiotics), azithromycin, iodine (More??) Close Head CT (Signed) Nicolás Blake - 05/18/23 Abdomen/Pelvis CTA (Signed) Nicolás Blake - 05/18/[address] (Signed) Sam Paul - 03/18/[address] (Signed) Sam Paul - 03/18/23 Shoulder X-Ray (Signed) Rhiannon Burns - 03/18/23 Ribs X-Ray (Signed) Rhiannon Burns - 03/18/23 Chest X-Ray (Signed) Jos Tyler - 11/29/22 Telemetry Strips 04/02/22 Renal Ultrasound (Signed) Khris Viramontes - 04/01/[address] (Signed) Sam Paul - 04/01/[address] (Signed) Sam Paul - 04/01/22 Chest X-Ray (Signed) Manolo Li - 04/01/[address] (Signed) Rhiannon Burns - 03/14/22 Chest X-Ray (Signed) Jose Antony - 03/14/[address] (Signed) Jayy Stevens - 01/05/23 Chest/Abdomen/Pelvis CTA (Signed) Call,Carlo - 11/23/21 Chest X-Ray (Signed) Call,Carlo - 11/23/21 Wrist X-Ray (Signed) Sam Paul - 11/03/[address] (Signed) Hanny Root - 08/15/21 Vascular Ultrasound (Signed) Jose Durham - 08/15/21 Chest X-Ray (Signed) Jose Durham - 08/14/21 Abdomen X-Ray (Signed) Patsy Pierre - 07/02/[address] (Signed) Ted Ramos - 06/18/20 Chest X-Ray (Signed) Hanny Root - 05/17/20 Abdomen/Pelvis CT (Signed) Renay Ochoa - 05/17/20 Telemetry Strips 04/24/[address] (Signed) Rahul Santoyo - 04/24/20 Chest X-Ray (Signed) Marky Renteria - 04/24/[address] (Signed) Bismark Lee - 04/21/20 Chest/Abdomen/Pelvis CT (Signed) Bismark Lee - 03/03/20 Telemetry Strips 02/26/20 Pelvis Ultrasound (Signed) Marky Renteria - 02/10/20 Hip X-Ray (Signed) Bismark Lee - 08/17/19 Head/Neck CTA (Signed) Sam Paul - 03/15/19 Echocardiogram Ultrasound (Signed) Kishore Chadwick - 12/17/18 Carotid Doppler Study (Signed) Hanny Root - 12/17/18 Tibia/Fibula X-Ray (Signed) Berlin Rolle - 10/17/18 Ankle X-Ray (Signed) Berlin Rolle - 10/17/18 DEXA Result 08/11/18 Outside DI 07/22/18 Launch?[address] [address] [address] Scan Report Signed Patient: Priscilla Mahan MR#: [id number] : 1940 Acct:[id number] Age/Sex: 82 / F Date of Service: 05/18/23 Loc: Accession Number: [id number] Procedure: CT head/brain wo con Ordering Provider: Amara Royal D.O. PROCEDURE: CT HEAD/BRAIN WO CON INDICATIONS: r/o spontaneous bleed, platelets 13, pt bleeding TECHNIQUE: Noncontrast 4.5 mm thick angled axial sections acquired from the foramen magnum to the vertex, with coronal and sagittal reformats. For radiation dose reduction, the following was used: automated exposure control, adjustment of mA and/or kV according to patient size. COMPARISON: Located Within [facility], CT, CT HEAD/BRAIN WO CON, 03/18/2023, 10:37. FINDINGS: Image quality: Diagnostic. CSF spaces: Basal cisterns are patent. No extra-axial fluid collections. Ventricles are normal in size and shape. Brain: No midline shift. No intracranial masses or hemorrhage. Moody-white matter interface is normal. Skull and face: Calvarium and visualized facial bones are intact, without suspicious lesions. Sinuses: Visualized sinuses and mastoids are clear. IMPRESSION: Atrophy and chronic ischemic change without intracranial hemorrhage or mass effect. Approved by: Nicolás Blake M.D. on 05/18/2023 at 10:19 ECG Data Attestation: I personally reviewed and interpreted this ECG as follows: Prior ECG tracings: available for review Interpretation: Rate of 101 UT 200 QRS 84 QTC of 547. No acute ST elevation. Patient has prior from 03/18/2023 with a lot of motion artifact but prior from 11/29/2022 appears similar to today's. [facility] Narrative Medical decision making narrative: 82-year-old female with known history of ITP with spontaneous bleeding appears to likely be from the mouth. Labs show white count of 15, hemoglobin of 12.9 with platelets of 13. Patient has elevation of neutrophils, lymphocytes and monocytes. Last platelet count was 91 in March 2023. Chemistry shows sodium of 139 potassium of 4 5 chloride 104 carbon dioxide of 32 with a BUN of 39 and a creatinine of 0.89, otherwise normal LFTs. Because of patient's spontaneous bleeding and low platelets head CT was obtained to rule out spontaneous bleed. Patient has also been having black tarry stools likely from upper bleeding from the mouth but patient does have risk for GI bleed and CT GI bleed protocol was ordered. Patient received Protonix 80 mg and Zofran 4 mg. Platelets were ordered, they come from [place]. Consult with Hematology/Oncology in [place], Dr. Rothman: Discussed patient had her enphase help at her 327 appointment at that time her platelets were 110 they were trending upwards and switch to prednisone [address] Rothman recommends transfusing platelets, restarting prednisone 60 mg daily and if stable can follow-up to have her enphase restarted. If she is having any persistent bleeding or significant bleeding patient is to have transfusion goal of 50,000 and would recommend IVIG. Head CT: shows no acute change or bleed. CT angio abd/pelvis: no acute change. Spoke with Dr. Bo, hospitalist who accepts. Discharge Plan Discharge Plan Patient Disposition: Admitted as Observation Discharge Med Rec/Prescriptions Prescriptions: No Action polyethylene glycol 3350 [Miralax] 17 GM powder in packet 17 gm PO BEDTIME Qty: 0 lorazepam 0.5 mg tablet 0.5 mg PO BEDTIME Qty: 30 0RF Rx Instructions: take by mouth once daily at bedtime prednisone 10 mg tablet 10 mg PO DAILY Patient Comments: pt states this was lowered last week to 10mg daily estradiol 0.01 % (0.1 mg/gram) cream 2 g vaginal 2XW Patient Comments: takes sundays and wednesdays diltiazem HCl 30 mg tablet 30 mg PO BID vitamin B complex [B Complex-Vitamin B12] Tablet 1 tab PO DAILY cholecalciferol (vitamin D3) [Vitamin D3] 25 mcg (1,000 unit) Capsule 1 mcg PO DAILY Adults Multivitamin 18 mg iron-400 mcg-25 mcg Tablet 1 tab PO DAILY melatonin 3 mg Capsule 3 mg PO BEDTIME Visit Report/Discharge Packet Referrals: Jayson Machado MD [Primary Care Provider] - Discharge Data Primary Care Provider: Jayson Machado Attending Provider: Brady Bear
--- NOTE | 2023-05-18 09:33 | DI.CT.S_ITS ---
PROCEDURE: CT ANGIO ABD/PEL with and without contrast INDICATIONS: bleeding TECHNIQUE: Before and after administration of intravenous contrast, 2 mm thick sections acquired from the diaphragm to the symphysis utilizing an angiographic protocol. Traditional and MIP reformats were utilized. For radiation dose reduction, the following was used: automated exposure control. COMPARISON: [facility], CT, CT ANGIO CHEST ABDOMEN PELVIS, 11/23/2021, 20:58. FINDINGS: Lower thorax: The lung bases are clear. Heart size normal. No hiatal hernia. Liver: Normal in size and attenuation. No contour deformity present. Biliary system: No calcified cholelithiasis or pericholecystic inflammation. No intra or extrahepatic bile duct dilatation. Pancreas: Unremarkable without mass or inflammation evident. Spleen: Splenectomy Adrenals: Normal morphology and density. Reproductive system: Unremarkable as visualized. Urinary system: Normal renal size and attenuation. No renal calculi, hydronephrosis, or solid mass present. Urinary bladder unremarkable. Gastrointestinal system: The bowel is unremarkable without evidence of bowel obstruction or inflammation. The stomach appears unremarkable. Moderate fecal debris in the rectum Appendix: No findings to suggest acute appendicitis. Peritoneal spaces: No mesenteric or retroperitoneal adenopathy. No free air. No free fluid. 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 Musculoskeletal: Normal bone mineralization. Degenerative disc disease and arthropathy noted in lower lumbar spine. Advanced convex left thoracolumbar scoliosis No acute fractures. L1 cavernous hemangioma IMPRESSION: 1. No evidence of active bleeding. No aortic aneurysm or dissection. 2. 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 3. Moderate fecal debris in the rectum. Approved by: Nicolás Blake M.D. on 05/18/2023 at 10:34
--- NOTE | 2023-05-18 09:33 | DI.CT.S_ITS ---
PROCEDURE: CT HEAD/BRAIN WO CON INDICATIONS: r/o spontaneous bleed, platelets 13, pt bleeding TECHNIQUE: Noncontrast 4.5 mm thick angled axial sections acquired from the foramen magnum to the vertex, with coronal and sagittal reformats. For radiation dose reduction, the following was used: automated exposure control, adjustment of mA and/or kV according to patient size. COMPARISON: [facility], CT, CT HEAD/BRAIN WO CON, 03/18/2023, 10:37. FINDINGS: Image quality: Diagnostic. CSF spaces: Basal cisterns are patent. No extra-axial fluid collections. Ventricles are normal in size and shape. Brain: No midline shift. No intracranial masses or hemorrhage. Moody-white matter interface is normal. Skull and face: Calvarium and visualized facial bones are intact, without suspicious lesions. Sinuses: Visualized sinuses and mastoids are clear. IMPRESSION: Atrophy and chronic ischemic change without intracranial hemorrhage or mass effect. Approved by: Nicolás Blake M.D. on 05/18/2023 at 10:19
== END | disposition admitted as inpatient to this hospital (09) ==
PROVIDERS: Family Provider Physician Assistant; PCP Family Medicine; Visit Provider Surgery
DX: K92.2 Gastrointestinal hemorrhage, unspecified (principal); S81.812A Laceration without foreign body, left lower leg, initial encounter; S81.802A Unspecified open wound, left lower leg, initial encounter; L98.8 Other specified disorders of the skin and subcutaneous tissue; I87.2 Venous insufficiency (chronic) (peripheral); R60.0 Localized edema; D69.3 Immune thrombocytopenic purpura; Z92.25 Personal history of immunosuppression therapy; Z79.01 Long term (current) use of anticoagulants
CPT/HCPCS: 11042

== ENCOUNTER 2023-05-18 08:58 | Inpatient (IN) | payer MEDICARE, OTHER, SELFPAY ==
[2022-04-02 04:28] VITALS: BMI 19.0
[2023-05-18] VITALS (15 sets, daily range): BP systolic 115–158; BP diastolic 62–90; PULSE 63–92; RESP 14–26; TEMP 35.9–36.6; O2SAT 93–98; BMI 20.9; BMI 19.3
--- NOTE | 2023-05-18 09:01 | ED.GIBLEED ---
HPI - GI Bleed General Chief complaint: GI Bleed Stated complaint: Rectal bleeding Time Seen by Provider: 05/18/23 09:00 Source: patient, EMS, RN notes reviewed and old records reviewed Mode of arrival: EMS Limitations: no limitations Related Data Home Medications Medication Instructions Recorded Confirmed polyethylene glycol 3350 17 gram 17 gm PO BEDTIME PRN Constipation 05/26/17 02/16/23 oral powder packet (Miralax) ##0 cholecalciferol (vitamin D3) 50 50 mcg PO DAILY 02/08/20 02/16/23 mcg (2,000 unit) capsule (Vitamin D3) multivitamin 1 tab PO DAILY 02/08/20 02/16/23 vitamin B complex 1 tab PO DAILY 02/08/20 02/16/23 vitamin B12 0.5 mg-folic acid 1 mg 1 tab PO DAILY 04/05/20 02/16/23 tablet Previous Rx's Medication Instructions Recorded conjugated estrogens 0.625 mg/gram 0.625 mg vaginal 2XW uretheral 07/14/20 vaginal cream caruncle #30 grams aminocaproic acid 500 mg tablet 2 g (4 x 500 mg) PO QID PRN 10/30/21 (Amicar) Bleeding #32 tabs lisinopril 30 mg tablet 30 mg PO DAILY #30 tabs 04/05/22 lorazepam 0.5 mg tablet 0.5 mg PO BEDTIME #30 tabs 04/05/22 melatonin 3 mg tablet 3 mg PO BEDTIME #30 tabs 04/05/22 pantoprazole 20 mg tablet,delayed 20 mg PO 0600 #30 tabs 04/05/22 release prednisone 5 mg tablet 15 mg (3 x 5 mg) PO DIRECTED 04/05/22 #90 tabs phenazopyridine 100 mg tablet 100 mg PO TID PRN pain 6 doses #6 11/24/22 (Pyridium) tabs doxycycline hyclate 100 mg capsule 100 mg PO BID #14 caps 01/01/23 Allergies Allergy/AdvReac Type Severity Reaction Status Date / Time latex Allergy Mild LOCAL RASH Verified 03/18/23 10:30 Penicillins Allergy Mild CHILDHOOD Verified 03/18/23 10:30 Sulfa (Sulfonamide Allergy Mild SOMETHING Verified 03/18/23 10:30 Antibiotics) TO DO WITH BLADDER OR KIDNEY'S?? 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 Chronic steroid use Microscopic hematuria Scoliosis Anxiety Osteoporosis Atrial flutter Hypertension Surgical History History of splenectomy Status post hysterectomy History of tonsillectomy Family History Father Cancer Mother Bleeding disorder Brother Brain cancer Social History marital status: household members: spouse lives independently: Yes Smoking Status: Former smoker alcohol intake: former Exam Initial Vital Signs Initial Vital Signs: Vital Signs Pulse Rate 74 05/18/23 09:06 Blood Pressure 154/90 H 05/18/23 09:06 Pulse Oximetry 98 05/18/23 09:06 Course Orders Ordered: ED Orders 05/18/23 09:00 Complete Blood Count AUTO DIFF Stat Comprehensive Metabolic Panel Stat PTT Partial Thromboplastin Nelson Stat Prothrombin Time INR Stat 05/18/23 09:05 Platelets Stat Type and Screen Stat 05/18/23 11:18 Urine Microscopic Stat Ondansetron HCl (Ondansetron 4 Mg/2 Ml Inj) 4 mg IV NOW PRN PRN Reason: Nausea And Vomiting Last Admin: 05/18/23 09:37 Dose: 4 mg Documented By: YORDAN Discontinued Medications Pantoprazole Sodium (Pantoprazole 40 Mg Vial) 80 mg IV NOW ONE Stop: 05/18/23 09:16 Last Admin: 05/18/23 09:37 Dose: 80 mg Documented By: SPF Vital Signs Vital signs: Vital Signs - 8 hr 05/18/23 09:06 05/18/23 09:06 05/18/23 09:07 Temperature 97.7 F Pulse Rate 74 74 Respiratory Rate 16 Blood Pressure 154/90 H 154/70 H Pulse Oximetry 98 97 Oxygen Delivery Method Room Air 05/18/23 09:30 05/18/23 09:30 05/18/23 10:00 Temperature Pulse Rate 69 Respiratory Rate Blood Pressure 158/78 H 148/75 H Pulse Oximetry 97 Oxygen Delivery Method Room Air 05/18/23 10:00 05/18/23 10:42 05/18/23 11:00 Temperature Pulse Rate 68 76 Respiratory Rate 23 15 Blood Pressure 143/76 H Pulse Oximetry 97 96 Oxygen Delivery Method Room Air Room Air 05/18/23 11:00 05/18/23 11:30 05/18/23 11:30 Temperature Pulse Rate 63 79 Respiratory Rate 14 26 H Blood Pressure 151/72 H Pulse Oximetry 93 98 Oxygen Delivery Method Room Air MDM - GI Bleed Lab Data 05/18/23 09:00 05/18/23 09:00 Labs: Lab Results 05/18/23 05/18/23 05/18/23 Range/Units 09:00 09:05 11:18 WBC 15.1 H (4.5-11.0) X10^3/uL RBC 4.61 (4.0-5.2) X10^6/uL Hgb 12.9 (12.0-16.0) g/dL Hct 39.5 (36-46) % MCV 85.8 (80-100) fL MCH 28.0 (26-34) PG MCHC 32.7 (30-36) % RDW 16.2 H (11.6-14.8) % Plt Count 13 L* (150-400) X10^3/uL Neut % (Auto) 59.1 (50-75) % Lymph % (Auto) 30.5 (25-40) % [place] % (Auto) 7.0 (3-14) % Eos % (Auto) 1.9 L (2-4) % Baso % (Auto) 1.5 (0-2) % Neut # (Auto) 8900 H (9837-0880) /uL Lymph # (Auto) 4600 H (4856-1637) /uL [place] # (Auto) 1000 H (0-900) /uL Eos # (Auto) 300 (0-450) /uL Baso # (Auto) 200 H (0-100) /uL RBC Morphology Not Reportable Acanthocytes (Spur) 1+ H PT 9.8 (9.4-12.5) SECONDS INR 0.9 (0.9-1.3) APTT 28 (25.1-36.5) SECONDS Sodium 139 (137-145) mmol/L Potassium 4.5 (3.4-5.1) mmol/L Chloride 104 (98-107) mmol/L Carbon Dioxide 32 (22-32) mmol/L BUN 39 H (7-17) mg/dL Creatinine 0.89 (0.52-1.04) mg/dL Estimated GFR > 60 (>60) mL/min BUN/Creatinine Ratio 43.8 H (6-22) Glucose 80 (80-110) mg/dL Calcium 9.7 (8.4-10.2) mg/dL Total Bilirubin 0.9 (0.2-1.3) mg/dL AST 27 (14-36) IU/L ALT 19 (<35) IU/L Alkaline Phosphatase 59 (38-126) U/L Total Protein 7.6 (6.3-8.2) g/dL Albumin 4.5 (3.5-5.0) g/dL Globulin 3.1 (1.7-4.1) g/dL Albumin/Globulin Ratio 1.5 (1.0-2.8) Urine RBC 10-30/hpf H (0-5/HPF) Urine WBC 0-1/hpf (0-5/HPF) Ur Squamous Epith Cells None seen (0-5/HPF) Urine Bacteria None seen (None) Ur Culture Indicated? Cult not indicated Vol Urine Centrifuged 10ml (spun) Blood Type O Negative Antibody Screen Negative Urine Dip Bedside Urine Glucose Negative Bedside Urine Bilirubin - Negative Bedside Urine Ketone - Negative Urine Specific [place] 1.010 Bedside Urine Occult Blood + Bedside Urine pH 7.0 Bedside Urine Protein - Negative Bedside Urine Urobilinogen - Negative Bedside Urine Nitrite - Negative Bedside Urine Leukocytes - Negative Esterase Discharge Plan Departure Prescriptions: No Action phenazopyridine [Pyridium] 100 mg tablet 100 mg PO TID PRN (Reason: pain) Qty: 6 0RF doxycycline hyclate 100 mg capsule 100 mg PO BID Qty: 14 0RF polyethylene glycol 3350 [Miralax] 17 GM powder in packet 17 gm PO BEDTIME PRN (Reason: Constipation) Qty: 0 conjugated estrogens 0.625 mg/gram cream 0.625 mg vaginal 2XW Qty: 30 3RF Rx Instructions: Apply 1g to vagina 2x weekly, including urethra. multivitamin Tablet 1 tab PO DAILY vitamin B complex Tablet 1 tab PO DAILY cholecalciferol (vitamin D3) [Vitamin D3] 50 mcg (2,000 unit) Capsule 50 mcg PO DAILY vitamin G20-bayef acid 0.5-1 mg Tablet 1 tab PO DAILY aminocaproic acid [Amicar] 500 mg Tablet 2 g PO QID PRN (Reason: Bleeding) Qty: 32 0RF Rx Instructions: take as needed when bleeding occurs melatonin 3 mg Tablet 3 mg PO BEDTIME Qty: 30 0RF pantoprazole 20 mg Tablet,Delayed Release (Dr/Ec) 20 mg PO 0600 Qty: 30 0RF lorazepam 0.5 mg tablet 0.5 mg PO BEDTIME Qty: 30 0RF Rx Instructions: take by mouth once daily at bedtime prednisone 5 mg Tablet 15 mg PO DIRECTED Qty: 90 2RF Rx Instructions: Take 3 tablets (15mg) once daily by mouth. lisinopril 30 mg tablet 30 mg PO DAILY Qty: 30 0RF Referrals: Jayson Machado MD [Primary Care Provider] -
[2023-05-18 09:20] LABS: Add Manual Diff / Slide Review NO; Basophils Absolute Auto 200 /uL (0-100); Basophils Percent Auto 1.5 % (0-2); Eosinophils Absolute Auto 300 /uL (0-450); Eosinophils Percent Auto 1.9 % (2-4); Hematocrit 39.5 % (36-46); Hemoglobin 12.9 g/dL (12.0-16.0); Lymphocytes Absolute Auto 4600 /uL (1100-4500); Lymphocytes Percent Auto 30.5 % (25-40); Mean Corpuscular HGB Conc 32.7 % (30-36); Mean Corpuscular Volume 85.8 fL (80-100); Monocytes Absolute Auto 1000 /uL (0-900); Neutrophils Absolute Auto 8900 /uL (1500-7000); Neutrophils Percent Auto 59.1 % (50-75); Red Blood Cell Count 4.61 X10^6/uL (4.0-5.2); Red Cell Distribution Width 16.2 % (11.6-14.8); White Blood Cell Count 15.1 X10^3/uL (4.5-11.0)
[2023-05-18 09:23] LABS: Platelet Count 13 X10^3/uL (150-400)
[2023-05-18 09:28] LABS: Alanine Aminotransferase 19 IU/L (<35); Albumin 4.5 g/dL (3.5-5.0); Albumin Globulin Ratio 1.5 (1.0-2.8); Alkaline Phosphatase 59 U/L (38-126); Aspartate Aminotransferase 27 IU/L (14-36); BUN Creatinine Ratio 43.8 (6-22); Bilirubin Total 0.9 mg/dL (0.2-1.3); Blood Urea Nitrogen 39 mg/dL (7-17); Calcium 9.7 mg/dL (8.4-10.2); Carbon Dioxide 32 mmol/L (22-32); Chloride 104 mmol/L (98-107); Estimated Glomerular Filt Rate > 60 mL/min (>60); Globulin 3.1 g/dL (1.7-4.1); Glucose 80 mg/dL (80-110); HEMOLYSIS 56 (0-50); Potassium 4.5 mmol/L (3.4-5.1); Sodium 139 mmol/L (137-145); Total Protein 7.6 g/dL (6.3-8.2)
[2023-05-18 09:30] LABS: INR 0.9 (0.9-1.3); Prothrombin Time 9.8 SECONDS (9.4-12.5)
--- NOTE | 2023-05-18 09:30 | PC.NURSE ---
Addendum entered by Carlos Martinez R.N. 05/18/23 11:08: Pt reports noticeable difference in left leg swelling (which is worse) compared to right leg. She denies pain. Left leg 3+ pitting edema, right leg 1+ pitting edema. Fine crackles auscultated throughout lungs. Original Note: Pt reports having increased weakness, exertional SOB and intermittent dizziness/lightheaded which is worse with ambulation. She had a brief period of chest pressure this morning, denies chest pain now. Denied diaphoresis or SOB at time of chest pain prior. History of Afib, not on anticoagulation d/t ITP. She endorses upset stomach with some nausea, describes spitting up bloody sputum but denies having active vomiting today. Educated patient on suction use to avoid swallowing bloody sputum. Spouse at bedside.
[2023-05-18 09:33] LABS: PTT Partial Thromboplastin Tim 28 SECONDS (25.1-36.5)
[2023-05-18 09:35] LABS: Acanthocytes 1+
[2023-05-18] MEDS: PANTOPRAZOLE 40 MG VIAL 80 MG IV (09:37)
[2023-05-18] MEDS: ONDANSETRON 4 MG/2 ML INJ IV (09:37)
--- NOTE | 2023-05-18 09:57 | PC.NURSE ---
Dr Charlie Rothman, Heme/ONC [facility] paged [phone]. Pt is a pt of [facility] hematology and has seen Dr Johns and Dr Sancho Gore.
[2023-05-18 11:41] LABS: Bacteria Urine None Seen; RBC Urine 10-30/HPF (0-5/HPF); Squamous Epithelial Cell Urine None Seen (0-5/HPF); Urine Volume 10mL (spun); WBC Urine 0-1/HPF (0-5/HPF)
[2023-05-18 11:42] LABS: Culture Indicated Urine Cult Not Indicated
[2023-05-18] MEDS: predniSONE 20 MG TABLET 60 MG PO (12:22)
--- NOTE | 2023-05-18 12:33 | ED.GIBLEED ---
HPI - GI Bleed General Chief complaint: GI Bleed Stated complaint: Rectal bleeding Time Seen by Provider: 05/18/23 09:00 Source: patient, EMS, RN notes reviewed and old records reviewed Mode of arrival: EMS Related Data Home Medications Medication Instructions Recorded Confirmed polyethylene glycol 3350 17 gram 17 gm PO BEDTIME Constipation ##0 05/26/17 05/18/23 oral powder packet (Miralax) cholecalciferol (vitamin D3) 25 1 mcg PO DAILY 05/18/23 05/18/23 mcg (1,000 unit) capsule (Vitamin D3) diltiazem HCl 30 mg tablet 30 mg PO BID 05/18/23 05/18/23 estradiol 0.01% (0.1 mg/gram) 2 g vaginal 2XW 05/18/23 05/18/23 vaginal cream melatonin 3 mg capsule 3 mg PO BEDTIME 05/18/23 05/18/23 multivit with minerals-iron 18 1 tab PO DAILY 05/18/23 05/18/23 mg-folic ac 400 mcg-vit K 25 mcg tablet (Adults Multivitamin) prednisone 10 mg tablet 10 mg PO DAILY 05/18/23 05/18/23 vitamin B complex 1 tab PO DAILY 05/18/23 05/18/23 Previous Rx's Medication Instructions Recorded lorazepam 0.5 mg tablet 0.5 mg PO BEDTIME #30 tabs 04/05/22 Allergies Allergy/AdvReac Type Severity Reaction Status Date / Time latex Allergy Mild LOCAL RASH Verified 03/18/23 10:30 Penicillins Allergy Mild CHILDHOOD Verified 03/18/23 10:30 Sulfa (Sulfonamide Allergy Mild SOMETHING Verified 03/18/23 10:30 Antibiotics) TO DO WITH BLADDER OR KIDNEY'S?? 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 Chronic steroid use Microscopic hematuria Scoliosis Anxiety Osteoporosis Atrial flutter Hypertension Surgical History History of splenectomy Status post hysterectomy History of tonsillectomy Family History Father Cancer Mother Bleeding disorder Brother Brain cancer Social History marital status: household members: spouse lives independently: Yes Smoking Status: Former smoker alcohol intake: former Smoking Status: Former smoker alcohol intake frequency: holidays/special occasions only Substance Use Type: does not use Exam Initial Vital Signs Initial Vital Signs: Vital Signs Pulse Rate 74 05/18/23 09:06 Blood Pressure 154/90 H 05/18/23 09:06 Pulse Oximetry 98 05/18/23 09:06 Course Orders Ordered: ED Orders 05/18/23 09:00 Complete Blood Count AUTO DIFF Stat Comprehensive Metabolic Panel Stat PTT Partial Thromboplastin Nelson Stat Prothrombin Time INR Stat 05/18/23 09:05 Platelets Stat Type and Screen Stat 05/18/23 11:18 Urine Microscopic Stat Ondansetron HCl (Ondansetron 4 Mg/2 Ml Inj) 4 mg IV NOW PRN PRN Reason: Nausea And Vomiting Last Admin: 05/18/23 09:37 Dose: 4 mg Documented By: SPF Discontinued Medications Morphine Sulfate (Morphine 2 Mg/Ml Inj) 2 mg IV NOW ONE Stop: 05/18/23 12:43 Pantoprazole Sodium (Pantoprazole 40 Mg Vial) 80 mg IV NOW ONE Stop: 05/18/23 09:16 Last Admin: 05/18/23 09:37 Dose: 80 mg Documented By: SPF Prednisone (Prednisone 20 Mg Tablet) 60 mg PO NOW ONE Stop: 05/18/23 12:12 Last Admin: 05/18/23 12:22 Dose: 60 mg Documented By: NL Vital Signs Vital signs: Vital Signs - 8 hr 05/18/23 09:06 05/18/23 09:06 05/18/23 09:07 Temperature 97.7 F Pulse Rate 74 74 Respiratory Rate 16 Blood Pressure 154/90 H 154/70 H Pulse Oximetry 98 97 Oxygen Delivery Method Room Air 05/18/23 09:30 05/18/23 09:30 05/18/23 10:00 Temperature Pulse Rate 69 Respiratory Rate Blood Pressure 158/78 H 148/75 H Pulse Oximetry 97 Oxygen Delivery Method Room Air 05/18/23 10:00 05/18/23 10:42 05/18/23 11:00 Temperature Pulse Rate 68 76 Respiratory Rate 23 15 Blood Pressure 143/76 H Pulse Oximetry 97 96 Oxygen Delivery Method Room Air Room Air 05/18/23 11:00 05/18/23 11:30 05/18/23 11:30 Temperature Pulse Rate 63 79 Respiratory Rate 14 26 H Blood Pressure 151/72 H Pulse Oximetry 93 98 Oxygen Delivery Method Room Air MDM - GI Bleed Lab Data 05/18/23 09:00 05/18/23 09:00 Labs: Lab Results 05/18/23 05/18/23 05/18/23 Range/Units 09:00 09:05 11:18 WBC 15.1 H (4.5-11.0) X10^3/uL RBC 4.61 (4.0-5.2) X10^6/uL Hgb 12.9 (12.0-16.0) g/dL Hct 39.5 (36-46) % MCV 85.8 (80-100) fL MCH 28.0 (26-34) PG MCHC 32.7 (30-36) % RDW 16.2 H (11.6-14.8) % Plt Count 13 L* (150-400) X10^3/uL Neut % (Auto) 59.1 (50-75) % Lymph % (Auto) 30.5 (25-40) % [place] % (Auto) 7.0 (3-14) % Eos % (Auto) 1.9 L (2-4) % Baso % (Auto) 1.5 (0-2) % Neut # (Auto) 8900 H (6088-5262) /uL Lymph # (Auto) 4600 H (7809-4295) /uL [place] # (Auto) 1000 H (0-900) /uL Eos # (Auto) 300 (0-450) /uL Baso # (Auto) 200 H (0-100) /uL RBC Morphology Not Reportable Acanthocytes (Spur) 1+ H PT 9.8 (9.4-12.5) SECONDS INR 0.9 (0.9-1.3) APTT 28 (25.1-36.5) SECONDS Sodium 139 (137-145) mmol/L Potassium 4.5 (3.4-5.1) mmol/L Chloride 104 (98-107) mmol/L Carbon Dioxide 32 (22-32) mmol/L BUN 39 H (7-17) mg/dL Creatinine 0.89 (0.52-1.04) mg/dL Estimated GFR > 60 (>60) mL/min BUN/Creatinine Ratio 43.8 H (6-22) Glucose 80 (80-110) mg/dL Calcium 9.7 (8.4-10.2) mg/dL Total Bilirubin 0.9 (0.2-1.3) mg/dL AST 27 (14-36) IU/L ALT 19 (<35) IU/L Alkaline Phosphatase 59 (38-126) U/L Total Protein 7.6 (6.3-8.2) g/dL Albumin 4.5 (3.5-5.0) g/dL Globulin 3.1 (1.7-4.1) g/dL Albumin/Globulin Ratio 1.5 (1.0-2.8) Urine RBC 10-30/hpf H (0-5/HPF) Urine WBC 0-1/hpf (0-5/HPF) Ur Squamous Epith Cells None seen (0-5/HPF) Urine Bacteria None seen (None) Ur Culture Indicated? Cult not indicated Vol Urine Centrifuged 10ml (spun) Blood Type O Negative Antibody Screen Negative Urine Dip Bedside Urine Glucose Negative Bedside Urine Bilirubin - Negative Bedside Urine Ketone - Negative Urine Specific Accident 1.010 Bedside Urine Occult Blood + Bedside Urine pH 7.0 Bedside Urine Protein - Negative Bedside Urine Urobilinogen - Negative Bedside Urine Nitrite - Negative Bedside Urine Leukocytes - Negative Esterase Discharge Plan Departure Patient Disposition: Admitted as Observation Clinical Impression: Acute ITP, Bleeding from mouth Admit Date/Time: 05/18/23 12:17 Admit Provider: Omari Bo
--- NOTE | 2023-05-18 13:51 | P.HP_ITS ---
History of Present Illness History of Present Illness Date Patient Seen: 05/18/23 Time Patient Seen: 13:51 Chief complaint: Rectal bleeding Narrative: The patient is an 82-year-old female with history of ITP who is on chronic steroids. She also has had atrial fibrillation and hypertension. She presents today with black stools as well as oozing and bleeding from her mouth. The patient began to notice change in her stools yesterday. The patient notes that she recently had her oral steroids decreased in strength from 60 mg a day to about 10 mg a day. In addition the patient receives NPlate (Romiplostin) injections weekly. The emergency physician discussed the case with Dr. Rothman, of Oncology in [place]. Recommendations were to restart prednisone 60 mg and transfuse platelets. These were ordered in the ED but are pending. She has been dealing with ITP since 2006. She notes that her recent prednisone taper from 60 down to 10 is likely what caused this to escalate. She is received IVIG many times in the past with good response. She was placed on romiplostim more recently and did see good effect with this. She denies any history of bleeding episodes until this episode. She did take some blood in her mouth but has not been coughing up or vomiting up blood. No epistaxis. She did have several small volume dark stools. She denies any abdominal pain. No recent nonsteroidals. She is DNR, and has filled out a pulsed staying this in the past. She lives in [place] in a halfway center and her lives nearby and they are previous home. She does note recent constipation. 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 Chronic steroid use Microscopic hematuria Scoliosis Anxiety Osteoporosis Atrial flutter Hypertension Surgical History History of splenectomy Status post hysterectomy History of tonsillectomy Family History Father Cancer Mother Bleeding disorder Brother Brain cancer Social History marital status: household members: spouse lives independently: Yes Smoking Status: Former smoker alcohol intake: former Meds Home Medications and Allergies Home Medications Medication Instructions Recorded Confirmed Type polyethylene glycol 3350 17 gram 17 gm PO BEDTIME Constipation ##0 05/26/17 05/18/23 History oral powder packet (Miralax) lorazepam 0.5 mg tablet 0.5 mg PO BEDTIME #30 tabs 04/05/22 05/18/23 Rx cholecalciferol (vitamin D3) 25 1 mcg PO DAILY 05/18/23 05/18/23 History mcg (1,000 unit) capsule (Vitamin D3) diltiazem HCl 30 mg tablet 30 mg PO BID 05/18/23 05/18/23 History estradiol 0.01% (0.1 mg/gram) 2 g vaginal 2XW 05/18/23 05/18/23 History vaginal cream melatonin 3 mg capsule 3 mg PO BEDTIME 05/18/23 05/18/23 History multivit with minerals-iron 18 1 tab PO DAILY 05/18/23 05/18/23 History mg-folic ac 400 mcg-vit K 25 mcg tablet (Adults Multivitamin) prednisone 10 mg tablet 10 mg PO DAILY 05/18/23 05/18/23 History vitamin B complex 1 tab PO DAILY 05/18/23 05/18/23 History Allergies Allergy/AdvReac Type Severity Reaction Status Date / Time latex Allergy Mild LOCAL RASH Verified 03/18/23 10:30 Penicillins Allergy Mild CHILDHOOD Verified 03/18/23 10:30 Sulfa (Sulfonamide Allergy Mild SOMETHING Verified 03/18/23 10:30 Antibiotics) TO DO WITH BLADDER OR KIDNEY'S?? azithromycin Allergy Verified 03/18/23 10:30 iodine AdvReac Intermediate RAPID Verified 03/18/23 10:30 HEART RATE (IV CONTRAST) Review of Systems Review of Systems Narrative: All else reviewed and otherwise unremarkable except as noted in the history and physical. Exam Vital Signs (past 8 hours): - 05/18/23 09:06 05/18/23 09:06 05/18/23 09:07 Temperature 97.7 F Pulse Rate 74 74 Respiratory Rate 16 Blood Pressure 154/90 H 154/70 H Pulse Oximetry 98 97 Oxygen Delivery Method Room Air 05/18/23 09:30 05/18/23 09:30 05/18/23 10:00 Temperature Pulse Rate 69 Respiratory Rate Blood Pressure 158/78 H 148/75 H Pulse Oximetry 97 Oxygen Delivery Method Room Air 05/18/23 10:00 05/18/23 10:42 05/18/23 11:00 Temperature Pulse Rate 68 76 Respiratory Rate 23 15 Blood Pressure 143/76 H Pulse Oximetry 97 96 Oxygen Delivery Method Room Air Room Air 05/18/23 11:00 05/18/23 11:30 05/18/23 11:30 Temperature Pulse Rate 63 79 Respiratory Rate 14 26 H Blood Pressure 151/72 H Pulse Oximetry 93 98 Oxygen Delivery Method Room Air Oxygen Delivery Method Room Air Narrative Exam Narrative: NAD, alert and oriented, fluent speech, calm. Normocephalic skull, EOMI, anicteric sclera, symmetric pupils. Oropharynx unremarkable, no droop. Neck supple, midline trachea, no adenopathy. Lungs clear, normal rate and effort. Heart regular, no murmur gallop or rub. Abdomen is soft, non distended and non tender. Extremities are free of edema. Skin is notable for multiple areas of ecchymosis. She addition Wilburn on both legs. Joints are not swollen or deformed. Judgment appears to be normal. Objective Imaging CT scan - abdomen: Radiologist's impression: 1. No evidence of active bleeding. No aortic aneurysm or dissection. 2. 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 3. Moderate fecal debris in the rectum. CT scan - head: Radiologist's impression: Atrophy and chronic ischemic change without intracranial hemorrhage or mass effect. Labs 05/18/23 09:00 05/18/23 09:00 Labs: Laboratory Results - last 24 hr 05/18/23 05/18/23 05/18/23 09:00 09:05 11:18 WBC 15.1 H RBC 4.61 Hgb 12.9 Hct 39.5 MCV 85.8 MCH 28.0 MCHC 32.7 RDW 16.2 H Plt Count 13 L* Neut % (Auto) 59.1 Lymph % (Auto) 30.5 [place] % (Auto) 7.0 Eos % (Auto) 1.9 L Baso % (Auto) 1.5 Neut # (Auto) 8900 H Lymph # (Auto) 4600 H [place] # (Auto) 1000 H Eos # (Auto) 300 Baso # (Auto) 200 H RBC Morphology Not Reportable Acanthocytes (Spur) 1+ H PT 9.8 INR 0.9 APTT 28 Sodium 139 Potassium 4.5 Chloride 104 Carbon Dioxide 32 BUN 39 H Creatinine 0.89 Estimated GFR > 60 BUN/Creatinine Ratio 43.8 H Glucose 80 Calcium 9.7 Total Bilirubin 0.9 AST 27 ALT 19 Alkaline Phosphatase 59 Total Protein 7.6 Albumin 4.5 Globulin 3.1 Albumin/Globulin Ratio 1.5 Urine RBC 10-30/hpf H Urine WBC 0-1/hpf Ur Squamous Epith Cells None seen Urine Bacteria None seen Ur Culture Indicated? Cult not indicated Vol Urine Centrifuged 10ml (spun) Blood Type O Negative Antibody Screen Negative Assessment & Plan Assessment & Plan narrative: 1. Melena with thrombocytopenia, present on admission and active. 2. ITP with worsening platelet count in context of recent prednisone taper, present on admission and active. 3. Remote pulmonary embolism, and . She declined a inhalation in the past. This is to her concurrent ITP E. 4. Atrial flutter, intermittent. Not present on admission are active. 5. Hypertension, present on admission and stable. PLAN: -per Dr. Rothman of Oncology in [place] today, transfuse platelets and prednisone 50 mg daily. First dose given today. -if she fails to improve consider transfer for IVIG. -Protonix IV b.i.d.. -if she is more significant bleeding, transfuse platelets to a goal count of 50 K. Then would recommend IVIG. -she has likely not a candidate for endoscopy with her thrombocytopenia, and this will likely be treated primarily medically. We will hold blood pressure medications monitoring the situation. She is DNR, confirmed with her today. Her is her proxy decision maker, confirmed today with her. Estimated length of stay is 2 midnights, expectation is she will require hospital level services for least 2 midnights for her acute thrombocytopenia and bleeding. Time Spent With Patient Time with patient: 30 to 49 minutes with 50% spent counseling/coordinating care Quality VTE Deep Vein Thrombosis/Pulmonary Embolism Present on Admission: No MIPS - Admit I confirm the patient?s Advance Care Plan is present, Code status is documented, Surrogate decision maker is in patient?s record [If Yes, STOP here]: Yes MIPS - Meds 'Current medications' to include all prescriptions, [id number] products, herbals, cannabis/cannabidiol products, and vitamin/mineral/dietary (nutritional) supplements. I have utilized all available resources to obtain, update, or review the patient?s current medications. [If Yes, STOP here]: Yes
--- NOTE | 2023-05-18 15:30 | PC.NURSE ---
over-ride scan for platelets 1530 Blood band scan needed over ride as when lab entered blood band number they put a space between the letter and numbers. Blood band number compared to unit number and verified by this RN, Hang RN, and Jolly PRADHAN.
--- NOTE | 2023-05-18 15:49 | PC.NURSE ---
Addendum entered by Afshan Sheikh R.N. 05/18/23 18:04: platelet #2 infusing pt tolerating well vss, to bathroom with sba small black stool with some geraldine blood noted. sitting on edge of bed having dinner. pt reminded to use call light. Original Note: platelets infusing, vss pt tolerating well. no s/sx of active bleeding, fall precautions in place call light within reach bed alarmed
[2023-05-18] MEDS: polyethylene glycoL 3350 17 GM POWD.PACK PO (20:36)
[2023-05-18] MEDS: PANTOPRAZOLE 40 MG VIAL IV (20:36)
[2023-05-18] MEDS: LORazepam 0.5 MG TABLET PO (20:37)
[2023-05-18] MEDS: MELATONIN 3 MG TABLET PO (20:37)
[2023-05-18] MEDS: SENNOSIDES 8.6 MG TABLET 17.2 MG PO (20:37)
[2023-05-18 21:49] LABS: Hematocrit 31.8 % (36-46); Hemoglobin 10.8 g/dL (12.0-16.0); Mean Corpuscular HGB Conc 33.8 % (30-36); Mean Corpuscular Hemoglobin 28.8 PG (26-34); Mean Corpuscular Volume 85.3 fL (80-100); Platelet Count 122 X10^3/uL (150-400); Red Blood Cell Count 3.73 X10^6/uL (4.0-5.2); White Blood Cell Count 9.9 X10^3/uL (4.5-11.0)
[2023-05-19] MEDS: ACETAMINOPHEN 325 MG TABLET 650 MG PO (02:02)
[2023-05-19] MEDS: OXYCODONE IR 5 MG TABLET PO (04:42)
[2023-05-19 05:31] VITALS: BP 137/81; PULSE 78; RESP 16; TEMP 35.6; O2SAT 94
[2023-05-19 05:40] LABS: Add Manual Diff / Slide Review NO; Basophils Absolute Auto 100 /uL (0-100); Basophils Percent Auto 0.5 % (0-2); Eosinophils Absolute Auto 0 /uL (0-450); Eosinophils Percent Auto 0.1 % (2-4); Hematocrit 30.5 % (36-46); Hemoglobin 10.3 g/dL (12.0-16.0); Lymphocytes Absolute Auto 1700 /uL (1100-4500); Lymphocytes Percent Auto 14.2 % (25-40); Mean Corpuscular HGB Conc 33.7 % (30-36); Mean Corpuscular Hemoglobin 28.8 PG (26-34); Mean Corpuscular Volume 85.4 fL (80-100); Monocytes Absolute Auto 700 /uL (0-900); Monocytes Percent Auto 5.6 % (3-14); Neutrophils Absolute Auto 9700 /uL (1500-7000); Neutrophils Percent Auto 79.6 % (50-75); Platelet Count 104 X10^3/uL (150-400); Red Blood Cell Count 3.57 X10^6/uL (4.0-5.2); Red Cell Distribution Width 16.3 % (11.6-14.8); White Blood Cell Count 12.2 X10^3/uL (4.5-11.0)
[2023-05-19 05:41] LABS: BUN Creatinine Ratio 32.5 (6-22); Blood Urea Nitrogen 26 mg/dL (7-17); Calcium 8.9 mg/dL (8.4-10.2); Carbon Dioxide 28 mmol/L (22-32); Chloride 106 mmol/L (98-107); Estimated Glomerular Filt Rate > 60 mL/min (>60); Glucose 99 mg/dL (80-110); HEMOLYSIS < 15 (0-50); Potassium 3.6 mmol/L (3.4-5.1); Sodium 134 mmol/L (137-145)
--- NOTE | 2023-05-19 06:16 | PC.NURSE ---
sheet cutter: Patient is AxOx4, forgetful at times. Vital signs are stable. Platelets infused overnight. Complaints of a headache usually relieved by oxycodone, patient states she has a hx of migraines. Speech is clear, no unilateral weakness noted, pupils are equal. MD Mckeon notified, oxycodone ordered & given, pt stated headache is improving. Denies chest pain, nausea, SOB. 1 PA to the [facility], tolerates ambulation well. Had 1 small, dark brown BM overnight. Left leg is edematous, 2+ pitting edema. Patient is seeing wound care clinic for wounds on BLE, states that she has a 0915 appointment today (05/18), left voicemail with wound care clinic. Oriented to call-light. Plan of care ongoing.
[2023-05-19 08:00] VITALS: BP 155/94; PULSE 98; RESP 18; TEMP 36.1; O2SAT 100
--- NOTE | 2023-05-19 08:59 | P.PN_ITS ---
Subjective Subjective Interval history: Patient is now having brown stools. No gum bleeding. Platelets up to 104k. She is willing to see Dr. Nicholas at [facility] going forward so will reach out to him. Exam Vital Signs (past 8 hours): - 05/19/23 05:31 05/19/23 08:00 Temperature 96.1 F L 97 F L Pulse Rate 78 98 H Respiratory Rate 16 18 Blood Pressure 137/81 155/94 H Pulse Oximetry 94 100 Oxygen Flow Rate 0 Oxygen Delivery Method Room Air Oxygen Flow Rate 0 Narrative Exam Narrative: NAD, alert and oriented, fluent speech, calm. Normocephalic skull, EOMI, anicteric sclera, symmetric pupils. Oropharynx unremarkable, no droop. Neck supple, midline trachea, no adenopathy. Lungs clear, normal rate and effort. Heart regular, no murmur gallop or rub. Abdomen is soft, non distended and non tender. Extremities are free of edema. Skin is notable for multiple areas of ecchymosis. She addition [place] on both legs. Joints are not swollen or deformed. Judgment appears to be normal. Objective Labs 05/19/23 04:41 05/19/23 04:41 Labs: Laboratory Results - last 24 hr 05/18/23 05/18/23 05/18/23 09:00 09:05 11:18 WBC 15.1 H RBC 4.61 Hgb 12.9 Hct 39.5 MCV 85.8 MCH 28.0 MCHC 32.7 RDW 16.2 H Plt Count 13 L* Neut % (Auto) 59.1 Lymph % (Auto) 30.5 [place] % (Auto) 7.0 Eos % (Auto) 1.9 L Baso % (Auto) 1.5 Neut # (Auto) 8900 H Lymph # (Auto) 4600 H [place] # (Auto) 1000 H Eos # (Auto) 300 Baso # (Auto) 200 H RBC Morphology Not Reportable Acanthocytes (Spur) 1+ H PT 9.8 INR 0.9 APTT 28 Sodium 139 Potassium 4.5 Chloride 104 Carbon Dioxide 32 BUN 39 H Creatinine 0.89 Estimated GFR > 60 BUN/Creatinine Ratio 43.8 H Glucose 80 Calcium 9.7 Total Bilirubin 0.9 AST 27 ALT 19 Alkaline Phosphatase 59 Total Protein 7.6 Albumin 4.5 Globulin 3.1 Albumin/Globulin Ratio 1.5 Urine RBC 10-30/hpf H Urine WBC 0-1/hpf Ur Squamous Epith Cells None seen Urine Bacteria None seen Ur Culture Indicated? Cult not indicated Vol Urine Centrifuged 10ml (spun) Blood Type O Negative Antibody Screen Negative 05/18/23 05/19/23 21:43 04:41 WBC 9.9 12.2 H RBC 3.73 L 3.57 L Hgb 10.8 L 10.3 L Hct 31.8 L 30.5 L MCV 85.3 85.4 MCH 28.8 28.8 MCHC 33.8 33.7 RDW 16.0 H 16.3 H Plt Count 122 L 104 L Neut % (Auto) 79.6 H D Lymph % (Auto) 14.2 L [place] % (Auto) 5.6 Eos % (Auto) 0.1 L Baso % (Auto) 0.5 Neut # (Auto) 9700 H Lymph # (Auto) 1700 [place] # (Auto) 700 Eos # (Auto) 0 Baso # (Auto) 100 RBC Morphology Acanthocytes (Spur) PT INR APTT Sodium 134 L Potassium 3.6 Chloride 106 Carbon Dioxide 28 BUN 26 H Creatinine 0.80 Estimated GFR > 60 BUN/Creatinine Ratio 32.5 H Glucose 99 Calcium 8.9 Total Bilirubin AST ALT Alkaline Phosphatase Total Protein Albumin Globulin Albumin/Globulin Ratio Urine RBC Urine WBC Ur Squamous Epith Cells Urine Bacteria Ur Culture Indicated? 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 Melena with thrombocytopenia, present on admission and active. 2. ITP with worsening platelet count in context of recent prednisone taper, present on admission and active. 3. Remote pulmonary embolism, and . She declined a inhalation in the past. This is to her concurrent ITP E. 4. Atrial flutter, intermittent. Not present on admission are active. 5. Hypertension, present on admission and stable. 6. Severe Chronic Protein Calorie Malnutrition r/t to decreased ability to consume sufficient energy needs as evidenced by severe muscle wasting (temporalis, interosseous, pectoralis, deltoids, trapezius), <75% estimated energy needs for >1 month, and moderate loss of subcutaneous fat pads (orbital, buccal, triceps). PLAN: -per Dr. Rothman of Oncology in [place], transfuse platelets and prednisone 50 mg daily started on 05/17 and melena now improving -if she fails to improve consider transfer for IVIG. -Protonix IV b.i.d. -if she is more significant bleeding, transfuse platelets to a goal count of 50 K. Then would recommend IVIG. -she has likely not a candidate for endoscopy with her thrombocytopenia, and this will likely be treated primarily medically. -will reach out to Dr. Nicholas for follow-up appointment We will hold blood pressure medications monitoring the situation. She is DNR, confirmed with her today. Her is her proxy decision maker, confirmed today with her. Dispo: Home in 1-2 days if platelet counts remain stable and melena still improving. Time Spent With Patient Time with patient: 30 to 49 minutes with 50% spent counseling/coordinating care Quality VTE Deep Vein Thrombosis/Pulmonary Embolism Present on Admission: No
[2023-05-19] MEDS: predniSONE 20 MG TABLET 60 MG PO (09:56)
[2023-05-19] MEDS: PANTOPRAZOLE 40 MG VIAL IV ×2 (09:56→21:28)
[2023-05-19] MEDS: CHOLECALCIFEROL (VITAMIN D3) 1,000 UNIT TABLET 1000 UNIT PO (09:56)
--- NOTE | 2023-05-19 12:24 | DIET.CONS ---
Dietary Consultation Note Admission Date: 05/18/2023 12:17 Assessment: 82 y F presenting with black stools and bleeding from mouth. Nutrition screened for low MNA score. Met with pt and at bedside. Pt reports often getting distracted from meals, not interested in preparing meals, and not feeling as hungry as usual. Diet recall per pt: B-1 egg and toast, but sometimes does not eat this and has it at lunch time L-above D-TV dinner Has ensures at home, ~1x/d or less Nutrition focused physical exam: Muscle wasting: -Severe loss temporalis -Severe loss clavicle region -Severe loss interosseous Subcutaneous fat loss: -Moderate loss buccal fat pads -Moderate loss orbital fat pads -Moderate loss triceps Ht: 162.56 cm Wt: 55.338 kg BMI: 20.9 UBW: 58 kg per pt in Jan 2023, 50.349 kg per chart on 01/19/23 Last BM: 05/19/23 (05/19/23 00:00) MNA: 7 Robert Score: 20 Diet: 05/18/23 Dinner Heart Healthy Diet Diet Modifications: Nutrition Percent Meal Consumed 100% 05/18/23 18:00 Labs: RBC 3.57 X10^6/uL (4.0-5.2) L 05/19/23 04:41 Hgb 10.3 g/dL (12.0-16.0) L 05/19/23 04:41 Hct 30.5 % (36-46) L 05/19/23 04:41 Creatinine 0.80 mg/dL (0.52-1.04) 05/19/23 04:41 Nutrition Diagnosis: Severe Chronic Protein Calorie Malnutrition r/t to decreased ability to consume sufficient energy needs as evidenced by severe muscle wasting (temporalis, interosseous, pectoralis, deltoids, trapezius), <75% estimated energy needs for >1 month, and moderate loss of subcutaneous fat pads. Interventions: 1. MNT for malnutrition 2. Ordered protein smoothie with lunch and Ensure Enlive/plus BID EER: 2275-3469 kcals/day (25-30 kcals/kg per BMI) 70-80 g protein/day (1.25-1.5 g/kg per malnutrition) Monitoring/Evaluations: PO intakes, weight Electronically Signed by: Germania Tadeo 05/19/23 12:24 Clinical Diet[address] [address]
[2023-05-19 18:00] VITALS: BP 133/80; PULSE 94; RESP 18; TEMP 36.6; O2SAT 96
[2023-05-19] MEDS: LIDOCAINE JELLY 2% 5 ML 1 APPLIC TOP (18:27)
--- NOTE | 2023-05-19 19:29 | PC.NURSE ---
dressing changed to lt leg per wound care instruction.
[2023-05-19 19:35] VITALS: BP 141/82; PULSE 95; RESP 18; TEMP 36.2; O2SAT 98
[2023-05-19] MEDS: MELATONIN 3 MG TABLET PO (21:28)
[2023-05-19] MEDS: LORazepam 0.5 MG TABLET PO (21:29)
[2023-05-19] MEDS: polyethylene glycoL 3350 17 GM POWD.PACK PO (21:29)
[2023-05-19] MEDS: BISACODYL 10 MG SUPP PR (21:30)
[2023-05-19 23:14] VITALS: BP 141/82; PULSE 95
[2023-05-19] MEDS: dilTIAZem 30 MG TABLET PO (23:14)
[2023-05-19] MEDS: MAGNESIUM HYDROXIDE 30 ML UDC PO (23:15)
[2023-05-20] VITALS (9 sets, daily range): BP systolic 133–154; BP diastolic 70–90; PULSE 77–94; RESP 17–19; TEMP 35.9–36.4; O2SAT 96–98
[2023-05-20 05:33] LABS: BUN Creatinine Ratio 30.8 (6-22); Blood Urea Nitrogen 28 mg/dL (7-17); Calcium 9.3 mg/dL (8.4-10.2); Carbon Dioxide 29 mmol/L (22-32); Chloride 103 mmol/L (98-107); Estimated Glomerular Filt Rate > 60 mL/min (>60); Glucose 100 mg/dL (80-110); HEMOLYSIS < 15 (0-50); Potassium 3.8 mmol/L (3.4-5.1); Sodium 136 mmol/L (137-145)
[2023-05-20 06:17] LABS: Add Manual Diff / Slide Review NO; Basophils Absolute Auto 100 /uL (0-100); Basophils Percent Auto 0.5 % (0-2); Eosinophils Absolute Auto 100 /uL (0-450); Eosinophils Percent Auto 0.4 % (2-4); Hematocrit 32.7 % (36-46); Hemoglobin 10.9 g/dL (12.0-16.0); Lymphocytes Absolute Auto 2400 /uL (1100-4500); Lymphocytes Percent Auto 13.1 % (25-40); Mean Corpuscular HGB Conc 33.4 % (30-36); Mean Corpuscular Hemoglobin 28.4 PG (26-34); Mean Corpuscular Volume 85.1 fL (80-100); Monocytes Absolute Auto 1300 /uL (0-900); Neutrophils Absolute Auto 14300 /uL (1500-7000); Red Blood Cell Count 3.84 X10^6/uL (4.0-5.2); Red Cell Distribution Width 16.1 % (11.6-14.8); White Blood Cell Count 18.2 X10^3/uL (4.5-11.0)
[2023-05-20 06:20] LABS: Platelet Count 10 X10^3/uL (150-400)
[2023-05-20 06:46] LABS: Acanthocytes 1+; Anisocytosis 1+; Platelet Estimate Decreased on smear
[2023-05-20] MEDS: predniSONE 20 MG TABLET 60 MG PO (08:42)
[2023-05-20] MEDS: IMMUN GLOB IV (08:42)
[2023-05-20] MEDS: GLY IV (08:42)
[2023-05-20] MEDS: IGA OV50 IV (08:42)
[2023-05-20] MEDS: ISOOSMOTIC VEHICLE IV (08:42)
[2023-05-20] MEDS: CHOLECALCIFEROL (VITAMIN D3) 1,000 UNIT TABLET 1000 UNIT PO (08:42)
[2023-05-20] MEDS: PANTOPRAZOLE 40 MG VIAL IV ×2 (08:42→21:23)
--- NOTE | 2023-05-20 08:57 | CM.DANOTE ---
Patient is an 82 yo female who was admitted [place] on 05/18/23 for Bleeding. Pt has M[employer] and COMM INS for insurance and her PCP is Dr. Jayson Machado. EMR was reviewed. Per MD, pt with ITP at baseline and on chronic steroids and hx of needing IVIG and admitted for platelets and transfusion. Per RN, pt given one bag of platelets so far and platelets low again this morning and needing another bag and to have IVIG today as well. PT ordered and pending. Pt is followed by Onc Dr. Nicholas at [facility] for her ITP and infusions. SW spoke to Lorie at [facility] and she confirms pt is an established wound care pt and they see her Mondays and for two chronic lower leg wounds and Lorie provided wound care supplies to the RN for ongoing dressing changes while pt is admitted. SW met bedside with pt and explained role and pt was ambulating independently to the bathroom. Pt confirms that she lives at home in [place] with her and both are fairly independent with ADLs and pt appears to have mild cognitive impairment/forgetfulness. Pt able to confirm that her Dtr Brenda lives in [place] still and is her DPOA. Pt does not typically use DME for ambulation. Pt was last admitted last year Mar 2022 for similar and was discharged home but Dtr was assisting with getting pt into a Memory Care or Assisted Living Facility in [place] but then also went to [facility] for possibly a couple weeks to a month for increased assistance. Pt states she is back in her home in [place] with spouse at this time. Pt states she did have HH after last discharge but unsure which HH agency. Pt states her preference is to discharge home with her when stable and declines any needs at this time but states she is planning to hire a private CG to help at home. SW provided the Senior Resource Guidebook and earmarked PP CG agency list. Plan: SW to follow closely to confirm safe discharge home with spouse when medically stable and any further identified discharge planning needs. REYMUNDO [place] Discharge Planning/Care Management Advanced directive, confirm from FAMILY Start: 05/18/23 13:42 Freq: Q24H Status: Active Protocol: Document 05/20/23 07:49 BT (Rec: 05/20/23 07:53 BT [id number]) Advance Directive, confirm on record Time 07:49 Person contacted Pt Copy received No CM Discharge Assessment Start: 05/20/23 08:54 Freq: Status: Active Protocol: Document 05/20/23 08:54 BF (Rec: 05/20/23 08:56 BF [id number]) Discharge Planning Assessment Assigned Bullet Slugs Inspector REYMUNDO Nelson DPOA/Assigned Designee Name Anna Gutierrez Contact Information [phone] Advance Directives? No Advance Directives on File No History Provided By Patient,Medical Record Has Patient been admitted in last 30 No days? Prior Living Arrangements House Household Members spouse Type of transporation used prior to Relies on Others admit Independent with ADL's Yes: mostly Is patient alert and oriented? Yes: some mild cog impairment Needs Assistance With Managing Medications,Home Chores / Shopping Caregiver for Another No DME Already Rented / Owned Cane Barriers to Discharge No Comment Due to health issues, some cognitive issues, has nutritional deficits as well. Discharge Plan Home Transportation Arrangement Patient states spouse can transport her Additional Comment Pt plans to hire a caregiver to help in the home more Whiteboard Updated in Patient Room with Yes name and ext. # of Bullet Slugs Inspector Review Status In Process Please Provide Date Initial DC 05/20/23 Assessment Was Performed Next Review Type Continued Stay Review
[2023-05-20] MEDS: dilTIAZem 30 MG TABLET PO ×2 (09:32→21:29)
--- NOTE | 2023-05-20 12:28 | PT-IP ANOTE ---
PT eval received and EMR reviewed. pt with platelet level of 10. informed nurse and stated that pt will not get platelet transfusion until 3 pm today. informed nurse and hospital agreed to hold PT for today.
[2023-05-20] MEDS: MAGNESIUM HYDROXIDE 30 ML UDC PO (16:51)
--- NOTE | 2023-05-20 17:54 | P.PN_ITS ---
Subjective Subjective Interval history: Patient's plt dropped to 10k. Spoke with hematology who recommended starting IVIG x3 days in addition to prednisone. 2 units of platelets ordered. Exam Vital Signs (past 8 hours): - 05/20/23 17:00 05/20/23 17:12 05/20/23 17:27 Temperature 97.1 F L 97.1 F L 97.5 F L Pulse Rate 85 83 79 Respiratory Rate 17 18 18 Blood Pressure 133/78 133/78 133/75 Pulse Oximetry 96 Oxygen Flow Rate 0 Oxygen Delivery Method Room Air Oxygen Flow Rate 0 Narrative Exam Narrative: NAD, alert and oriented, fluent speech, calm. Normocephalic skull, EOMI, anicteric sclera, symmetric pupils. Oropharynx unremarkable, no droop. Neck supple, midline trachea, no adenopathy. Lungs clear, normal rate and effort. Heart regular, no murmur gallop or rub. Abdomen is soft, non distended and non tender. Extremities are free of edema. Skin is notable for multiple areas of ecchymosis. Joints are not swollen or deformed. Judgment appears to be normal. Objective Labs 05/20/23 04:47 05/20/23 04:47 Labs: Laboratory Results - last 24 hr 05/18/23 05/20/23 09:05 04:47 WBC 18.2 H RBC 3.84 L Hgb 10.9 L Hct 32.7 L MCV 85.1 MCH 28.4 MCHC 33.4 RDW 16.1 H Plt Count 10 L* Neut % (Auto) 79.0 H Lymph % (Auto) 13.1 L [place] % (Auto) 7.0 Eos % (Auto) 0.4 L Baso % (Auto) 0.5 Neut # (Auto) 38489 H Lymph # (Auto) 2400 [place] # (Auto) 1300 H Eos # (Auto) 100 Baso # (Auto) 100 Platelet Estimate Decreased on smear RBC Morphology See below Anisocytosis 1+ H Acanthocytes (Spur) 1+ H Sodium 136 L Potassium 3.8 Chloride 103 Carbon Dioxide 29 BUN 28 H Creatinine 0.91 Estimated GFR > 60 BUN/Creatinine Ratio 30.8 H Glucose 100 Calcium 9.3 Blood Type O Negative Antibody Screen Negative [facility] Medical History Chronic ITP (idiopathic thrombocytopenic purpura) Pulmonary embolism and infarction Chronic steroid use Microscopic hematuria Scoliosis Anxiety Osteoporosis Atrial flutter Hypertension Surgical History History of splenectomy Status post hysterectomy History of tonsillectomy Family History Father Cancer Mother Bleeding disorder Brother Brain cancer Social History marital status: household members: spouse lives independently: Yes Smoking Status: Former smoker alcohol intake: former Assessment & Plan Assessment & Plan narrative: * 1. Melena with thrombocytopenia, present on admission and resolved. 2. ITP with worsening platelet count in context of recent prednisone taper, present on admission and active. 3. Remote pulmonary embolism, and . She declined a inhalation in the past. This is to her concurrent ITP E. 4. Atrial flutter, intermittent. Not present on admission are active. 5. Hypertension, present on admission and stable. 6. Severe Chronic Protein Calorie Malnutrition r/t to decreased ability to consume sufficient energy needs as evidenced by severe muscle wasting (temporalis, interosseous, pectoralis, deltoids, trapezius), <75% estimated energy needs for >1 month, and moderate loss of subcutaneous fat pads (orbital, buccal, triceps). PLAN: -per Dr. Rothman of Oncology in [place], transfuse platelets and prednisone 50 mg daily started on 05/17 and melena now improving -platelets decreased to 10k on 05/19, started IVIG x3 days. 2 units of platelets ordered but only recieved 1 thus far. -daily CBC -Protonix IV b.i.d. -she has likely not a candidate for endoscopy with her thrombocytopenia, and this will likely be treated primarily medically. -she is interested in establishing with Dr. Spence at [facility] We will hold blood pressure medications monitoring the situation. She is DNR. Her is her proxy decision maker. Dispo: Home in 1-2 days if platelet counts remain stable and melena still improving. Time Spent With Patient Time with patient: 30 to 49 minutes with 50% spent counseling/coordinating care Quality VTE Deep Vein Thrombosis/Pulmonary Embolism Present on Admission: No
[2023-05-20 20:25] LABS: Add Manual Diff / Slide Review NO; Basophils Absolute Auto 100 /uL (0-100); Basophils Percent Auto 0.6 % (0-2); Eosinophils Absolute Auto 0 /uL (0-450); Hematocrit 31.6 % (36-46); Hemoglobin 10.5 g/dL (12.0-16.0); Lymphocytes Absolute Auto 400 /uL (1100-4500); Lymphocytes Percent Auto 2.7 % (25-40); Mean Corpuscular HGB Conc 33.2 % (30-36); Mean Corpuscular Hemoglobin 28.4 PG (26-34); Mean Corpuscular Volume 85.5 fL (80-100); Monocytes Absolute Auto 800 /uL (0-900); Monocytes Percent Auto 4.7 % (3-14); Neutrophils Absolute Auto 15200 /uL (1500-7000); Platelet Count 84 X10^3/uL (150-400); Red Cell Distribution Width 15.7 % (11.6-14.8); White Blood Cell Count 16.5 X10^3/uL (4.5-11.0)
[2023-05-20] MEDS: OXYCODONE IR 5 MG TABLET PO (21:22)
[2023-05-20] MEDS: MELATONIN 3 MG TABLET PO (21:22)
[2023-05-20] MEDS: polyethylene glycoL 3350 17 GM POWD.PACK PO (21:23)
[2023-05-20] MEDS: LORazepam 0.5 MG TABLET PO (21:23)
[2023-05-20] MEDS: SENNOSIDES 8.6 MG TABLET 17.2 MG PO (21:23)
[2023-05-21] VITALS (7 sets, daily range): BP systolic 119–168; BP diastolic 62–96; PULSE 65–101; RESP 14–18; TEMP 35.9–36.7; O2SAT 92–97
[2023-05-21 05:13] LABS: Add Manual Diff / Slide Review NO; Basophils Absolute Auto 100 /uL (0-100); Basophils Percent Auto 0.4 % (0-2); Eosinophils Absolute Auto 100 /uL (0-450); Eosinophils Percent Auto 0.5 % (2-4); Hematocrit 31.8 % (36-46); Hemoglobin 10.6 g/dL (12.0-16.0); Lymphocytes Absolute Auto 1300 /uL (1100-4500); Lymphocytes Percent Auto 9.8 % (25-40); Mean Corpuscular HGB Conc 33.3 % (30-36); Mean Corpuscular Hemoglobin 28.6 PG (26-34); Mean Corpuscular Volume 85.7 fL (80-100); Monocytes Absolute Auto 1100 /uL (0-900); Monocytes Percent Auto 7.8 % (3-14); Neutrophils Absolute Auto 10900 /uL (1500-7000); Neutrophils Percent Auto 81.5 % (50-75); Platelet Count 77 X10^3/uL (150-400); Red Blood Cell Count 3.71 X10^6/uL (4.0-5.2); Red Cell Distribution Width 16.3 % (11.6-14.8); White Blood Cell Count 13.4 X10^3/uL (4.5-11.0)
[2023-05-21 05:24] LABS: BUN Creatinine Ratio 33.3 (6-22); Blood Urea Nitrogen 29 mg/dL (7-17); Calcium 8.7 mg/dL (8.4-10.2); Carbon Dioxide 30 mmol/L (22-32); Chloride 104 mmol/L (98-107); Estimated Glomerular Filt Rate > 60 mL/min (>60); Glucose 79 mg/dL (80-110); HEMOLYSIS 21 (0-50); Potassium 3.9 mmol/L (3.4-5.1); Sodium 136 mmol/L (137-145)
[2023-05-21] MEDS: OXYCODONE IR 5 MG TABLET PO ×2 (06:48→21:25)
[2023-05-21] MEDS: predniSONE 20 MG TABLET 60 MG PO (08:56)
[2023-05-21] MEDS: ACETAMINOPHEN 325 MG TABLET 650 MG PO (08:56)
[2023-05-21] MEDS: dilTIAZem 30 MG TABLET PO ×2 (08:56→21:26)
[2023-05-21] MEDS: PANTOPRAZOLE 40 MG VIAL IV ×2 (08:57→21:26)
[2023-05-21] MEDS: CHOLECALCIFEROL (VITAMIN D3) 1,000 UNIT TABLET 1000 UNIT PO (08:57)
[2023-05-21] MEDS: GLY IV (11:36)
[2023-05-21] MEDS: IGA OV50 IV (11:36)
[2023-05-21] MEDS: ISOOSMOTIC VEHICLE IV (11:36)
[2023-05-21] MEDS: IMMUN GLOB IV (11:36)
--- NOTE | 2023-05-21 12:17 | PT-IP ANOTE ---
EMR reviewed and pt continues to have low platelet count: 77. talked with hospitalist and cleared pt to do PT. checked on pt and pt refused PT. stated that she is really tired and wants to have a nap. informed pt that PT will check back this afternoon and pt agreed.
--- NOTE | 2023-05-21 12:59 | PM.CN ---
History of Present Illness Consult details Date Patient Seen: 05/21/23 Time Patient Seen: 12:30 Chief complaint: Rectal bleeding Narrative: The patient is an 82-year-old female with ITP, venous insufficiency, hypertension, and atrial flutter who was admitted to the hospital May 18, 2023 with bleeding secondary to severe thrombocytopenia. Her platelet count was noted to be down to 13,000. The patient was undergoing a steroid taper when the bleeding occurred. She is routine only followed at the wound center for evaluation of a traumatic wound of the left lower extremity that occurred when the patient's dog jumped on her leg. She has very fragile skin and is prone to injury. She has been receiving dressing changes with Adaptic and Hydrofera blue with Tubigrip for compression. She reports that the wound is still painful and has had some bleeding. She denies any fever or chills. Since admission the patient has been transfused platelets. Her steroid dose has been increased and she has been receiving IV IG. Meds Home Medications and Allergies Home Medications Medication Instructions Recorded Confirmed Type polyethylene glycol 3350 17 gram 17 gm PO BEDTIME Constipation ##0 05/26/17 05/18/23 History oral powder packet (Miralax) lorazepam 0.5 mg tablet 0.5 mg PO BEDTIME #30 tabs 04/05/22 05/18/23 Rx cholecalciferol (vitamin D3) 25 1 mcg PO DAILY 05/18/23 05/18/23 History mcg (1,000 unit) capsule (Vitamin D3) diltiazem HCl 30 mg tablet 30 mg PO BID 05/18/23 05/18/23 History estradiol 0.01% (0.1 mg/gram) 2 g vaginal 2XW 05/18/23 05/18/23 History vaginal cream melatonin 3 mg capsule 3 mg PO BEDTIME 05/18/23 05/18/23 History multivit with minerals-iron 18 1 tab PO DAILY 05/18/23 05/18/23 History mg-folic ac 400 mcg-vit K 25 mcg tablet (Adults Multivitamin) prednisone 10 mg tablet 10 mg PO DAILY 05/18/23 05/18/23 History vitamin B complex 1 tab PO DAILY 05/18/23 05/18/23 History Allergies Allergy/AdvReac Type Severity Reaction Status Date / Time latex Allergy Mild LOCAL RASH Verified 03/18/23 10:30 Penicillins Allergy Mild CHILDHOOD Verified 03/18/23 10:30 Sulfa (Sulfonamide Allergy Mild SOMETHING Verified 03/18/23 10:30 Antibiotics) TO DO WITH BLADDER OR KIDNEY'S?? azithromycin Allergy Verified 03/18/23 10:30 iodine AdvReac Intermediate RAPID Verified 03/18/23 10:30 HEART RATE (IV CONTRAST) Review of Systems Constitutional Comments: The patient is complaining of generalized weakness, fatigue, poor appetite, and occasional nausea. Exam Vital Signs (past 8 hours): - 05/21/23 08:56 05/21/23 09:24 Temperature 97.2 F L Pulse Rate 70 65 Respiratory Rate 16 Blood Pressure 168/94 H 168/94 H Pulse Oximetry 97 Oxygen Delivery Method Room Air Oxygen Flow Rate 0 Const Other: Elderly female who is awake, alert, and oriented in no apparent distress. Skin Other: Full-thickness traumatic wound anterior left lower extremity with some clot in the wound, no erythema or tenderness Extrem Other: Left lower extremity edema Objective Labs 05/21/23 04:24 05/21/23 04:24 Labs: Laboratory Results - last 24 hr 05/18/23 05/20/23 05/21/23 09:05 20:15 04:24 WBC 16.5 H 13.4 H RBC 3.70 L 3.71 L Hgb 10.5 L 10.6 L Hct 31.6 L 31.8 L MCV 85.5 85.7 MCH 28.4 28.6 MCHC 33.2 33.3 RDW 15.7 H 16.3 H Plt Count 84 L 77 L Neut % (Auto) 92.0 H 81.5 H Lymph % (Auto) 2.7 L 9.8 L [place] % (Auto) 4.7 7.8 Eos % (Auto) 0.0 L 0.5 L Baso % (Auto) 0.6 0.4 Neut # (Auto) 60413 H 47387 H Lymph # (Auto) 400 L 1300 [place] # (Auto) 800 1100 H Eos # (Auto) 0 100 Baso # (Auto) 100 100 Sodium 136 L Potassium 3.9 Chloride 104 Carbon Dioxide 30 BUN 29 H Creatinine 0.87 Estimated GFR > 60 BUN/Creatinine Ratio 33.3 H Glucose 79 L Calcium 8.7 Blood Type O Negative Antibody Screen Negative [facility] Medical History Chronic ITP (idiopathic thrombocytopenic purpura) Pulmonary embolism and infarction Chronic steroid use Microscopic hematuria Scoliosis Anxiety Osteoporosis Atrial flutter Hypertension Surgical History History of splenectomy Status post hysterectomy History of tonsillectomy Family History Father Cancer Mother Bleeding disorder Brother Brain cancer Social History marital status: household members: spouse lives independently: Yes Tobacco & Substance Use Smoking Status: Former smoker alcohol intake: former Assessment & Plan Assessment and plan (1) Unspecified open wound, left lower leg, subsequent encounter: Status: Acute (2) Localized edema: Status: Acute (3) Venous insufficiency (chronic) (peripheral): Status: Acute Assessment & Plan narrative: Full-thickness open wound left lower extremity with no sign of infection. We will hold off on any active debridement until her platelet count stabilizes. Recommend continuing dressing changes with Adaptic and Hydrofera blue and Tubigrip for compression. Keep the leg elevated on pillow while in bed. Follow up at wound center after discharge. Time Spent With Patient Time with patient: 30 to 49 minutes with 50% spent counseling/coordinating care
--- NOTE | 2023-05-21 13:52 | P.PN_ITS ---
Subjective Subjective Interval history: Platelets improved to 84k after 1 unit and decreased to 77k overnight. Patient still having no melena. On day 2 of 3 of IVIG. Exam Vital Signs (past 8 hours): - 05/21/23 08:56 05/21/23 09:24 Temperature 97.2 F L Pulse Rate 70 65 Respiratory Rate 16 Blood Pressure 168/94 H 168/94 H Pulse Oximetry 97 Oxygen Delivery Method Room Air Oxygen Flow Rate 0 Narrative Exam Narrative: NAD, alert and oriented, fluent speech, calm. Normocephalic skull, EOMI, anicteric sclera, symmetric pupils. Oropharynx unremarkable, no droop. Neck supple, midline trachea, no adenopathy. Lungs clear, normal rate and effort. Heart regular, no murmur gallop or rub. Abdomen is soft, non distended and non tender. Extremities are free of edema. Skin is notable for multiple areas of ecchymosis. Joints are not swollen or deformed. Judgment appears to be normal. Objective Labs 05/21/23 04:24 05/21/23 04:24 Labs: Laboratory Results - last 24 hr 05/18/23 05/20/23 05/21/23 09:05 20:15 04:24 WBC 16.5 H 13.4 H RBC 3.70 L 3.71 L Hgb 10.5 L 10.6 L Hct 31.6 L 31.8 L MCV 85.5 85.7 MCH 28.4 28.6 MCHC 33.2 33.3 RDW 15.7 H 16.3 H Plt Count 84 L 77 L Neut % (Auto) 92.0 H 81.5 H Lymph % (Auto) 2.7 L 9.8 L Wilson % (Auto) 4.7 7.8 Eos % (Auto) 0.0 L 0.5 L Baso % (Auto) 0.6 0.4 Neut # (Auto) 84548 H 68788 H Lymph # (Auto) 400 L 1300 Wilson # (Auto) 800 1100 H Eos # (Auto) 0 100 Baso # (Auto) 100 100 Sodium 136 L Potassium 3.9 Chloride 104 Carbon Dioxide 30 BUN 29 H Creatinine 0.87 Estimated GFR > 60 BUN/Creatinine Ratio 33.3 H Glucose 79 L Calcium 8.7 Blood Type O Negative Antibody Screen Negative [facility] Medical History 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 Melena with thrombocytopenia, present on admission and melena resolved. 2. ITP with worsening platelet count in context of recent prednisone taper, present on admission and active. 3. Remote pulmonary embolism, and . She declined a inhalation in the past. This is to her concurrent ITP E. 4. Atrial flutter, intermittent. Not present on admission are active. 5. Hypertension, present on admission and stable. 6. Severe Chronic Protein Calorie Malnutrition r/t to decreased ability to consume sufficient energy needs as evidenced by severe muscle wasting (temporalis, interosseous, pectoralis, deltoids, trapezius), <75% estimated energy needs for >1 month, and moderate loss of subcutaneous fat pads (orbital, buccal, triceps). PLAN: -per Dr. Rothman of Oncology in [place], transfuse platelets and prednisone 50 mg daily started on 05/17 and melena now improving -platelets decreased to 10k on 05/19, started IVIG x3 days. 2 units of platelets ordered but only recieved 1 thus far. -daily CBC -platelets now 77k -Protonix IV b.i.d. -she has likely not a candidate for endoscopy with her thrombocytopenia, and this will likely be treated primarily medically. -she is interested in establishing with Dr. Spence at [facility] We will hold blood pressure medications monitoring the situation. She is DNR. Her is her proxy decision maker. Dispo: Home in 1-2 days if platelet counts remain stable. Time Spent With Patient Time with patient: 30 to 49 minutes with 50% spent counseling/coordinating care Quality VTE Deep Vein Thrombosis/Pulmonary Embolism Present on Admission: No
--- NOTE | 2023-05-21 17:03 | PT-IP ANOTE ---
checked on pt again this afternoon and continues to refuse. stated that she does not want to do PT and that she is already independent with mobility. also stated that spouse was in room visiting and wants spouse to visit with her. asked pt if she wants PT to work with her and stated that she wants to get what she needs. informed pt that PT will check back tomorrow but stated, if there is nobody and she is not doing anything, then PT can see her but otherwise, she cannot do PT. pt getting agitated and with confusion. will check tomorrow.
[2023-05-21] MEDS: SENNOSIDES 8.6 MG TABLET 17.2 MG PO (21:20)
[2023-05-21] MEDS: LORazepam 0.5 MG TABLET PO (21:25)
[2023-05-21] MEDS: MELATONIN 3 MG TABLET PO (21:26)
[2023-05-21] MEDS: polyethylene glycoL 3350 17 GM POWD.PACK PO (21:26)
[2023-05-22 02:29] VITALS: BP 139/76; PULSE 67; RESP 21; TEMP 36; O2SAT 96
[2023-05-22 05:25] LABS: Add Manual Diff / Slide Review NO; Basophils Absolute Auto 0 /uL (0-100); Basophils Percent Auto 0.3 % (0-2); Eosinophils Absolute Auto 100 /uL (0-450); Eosinophils Percent Auto 0.5 % (2-4); Hematocrit 34.3 % (36-46); Hemoglobin 11.3 g/dL (12.0-16.0); Lymphocytes Absolute Auto 1000 /uL (1100-4500); Lymphocytes Percent Auto 8.2 % (25-40); Mean Corpuscular HGB Conc 32.9 % (30-36); Mean Corpuscular Hemoglobin 28.3 PG (26-34); Mean Corpuscular Volume 86.1 fL (80-100); Monocytes Absolute Auto 1000 /uL (0-900); Monocytes Percent Auto 8.7 % (3-14); Neutrophils Absolute Auto 9700 /uL (1500-7000); Neutrophils Percent Auto 82.3 % (50-75); Platelet Count 180 X10^3/uL (150-400); Red Blood Cell Count 3.99 X10^6/uL (4.0-5.2); Red Cell Distribution Width 16.2 % (11.6-14.8); White Blood Cell Count 11.8 X10^3/uL (4.5-11.0)
[2023-05-22 05:46] LABS: BUN Creatinine Ratio 25.8 (6-22); Blood Urea Nitrogen 25 mg/dL (7-17); Calcium 9.4 mg/dL (8.4-10.2); Carbon Dioxide 30 mmol/L (22-32); Chloride 102 mmol/L (98-107); Estimated Glomerular Filt Rate 58 mL/min (>60); Glucose 73 mg/dL (80-110); HEMOLYSIS < 15 (0-50); Potassium 3.9 mmol/L (3.4-5.1); Sodium 137 mmol/L (137-145)
[2023-05-22] MEDS: predniSONE 20 MG TABLET 60 MG PO (09:53)
[2023-05-22] MEDS: CHOLECALCIFEROL (VITAMIN D3) 1,000 UNIT TABLET 1000 UNIT PO (09:54)
[2023-05-22] MEDS: PANTOPRAZOLE 40 MG VIAL IV ×2 (09:54→20:26)
[2023-05-22] MEDS: dilTIAZem 30 MG TABLET PO ×2 (09:54→20:26)
[2023-05-22 10:00] VITALS: BP 132/83; PULSE 72; RESP 19; TEMP 36.5; O2SAT 98
[2023-05-22] MEDS: IGA OV50 IV (10:57)
[2023-05-22] MEDS: IMMUN GLOB IV (10:57)
[2023-05-22] MEDS: GLY IV (10:57)
[2023-05-22] MEDS: ISOOSMOTIC VEHICLE IV (10:57)
--- NOTE | 2023-05-22 11:30 | PC.NURSE ---
Patient has been sitting up in her chair. She is alert and oriented x3, tolerating her IVIG at 50cc/hr. This is being increased every 30 minutes and is not to exceed 276ml/hr. Patient is visiting with her now.
[2023-05-22] MEDS: FUROSEMIDE 20 MG/2 ML VIAL IV (14:24)
--- NOTE | 2023-05-22 15:25 | P.PN_ITS ---
Subjective Subjective Interval history: Platelets improved to 180k. Finishing last dose of IVIG today. She reports ongoing constipation and would like to try an enema. She would like a referral to Dr. Spence oncologist at [facility] for her ITP management. Exam Vital Signs (past 8 hours): - 05/22/23 10:00 Temperature 97.7 F Pulse Rate 72 Respiratory Rate 19 Blood Pressure 132/83 Pulse Oximetry 98 Oxygen Flow Rate 0 Oxygen Delivery Method Room Air Oxygen Flow Rate 0 Narrative Exam Narrative: NAD, alert and oriented, fluent speech, calm. Normocephalic skull, EOMI, anicteric sclera, symmetric pupils. Oropharynx unremarkable, no droop. Neck supple, midline trachea, no adenopathy. Lungs clear, normal rate and effort. Heart regular, no murmur gallop or rub. Abdomen is soft, non distended and non tender. Extremities have 2+ edema L>R Skin is notable for multiple areas of ecchymosis. Joints are not swollen or deformed. Judgment appears to be normal. Objective Labs 05/22/23 05:05 05/22/23 05:05 Labs: Laboratory Results - last 24 hr 05/18/23 05/22/23 09:05 05:05 WBC 11.8 H RBC 3.99 L Hgb 11.3 L Hct 34.3 L MCV 86.1 MCH 28.3 MCHC 32.9 RDW 16.2 H Plt Count 180 Neut % (Auto) 82.3 H Lymph % (Auto) 8.2 L Williamson % (Auto) 8.7 Eos % (Auto) 0.5 L Baso % (Auto) 0.3 Neut # (Auto) 9700 H Lymph # (Auto) 1000 L Williamson # (Auto) 1000 H Eos # (Auto) 100 Baso # (Auto) 0 Sodium 137 Potassium 3.9 Chloride 102 Carbon Dioxide 30 BUN 25 H Creatinine 0.97 Estimated GFR 58 L BUN/Creatinine Ratio 25.8 H Glucose 73 L Calcium 9.4 Blood Type O Negative Antibody Screen Negative [facility] Medical History 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 Melena with thrombocytopenia, present on admission and melena resolved. 2. ITP with worsening platelet count in context of recent prednisone taper, present on admission and now improving. 3. Remote pulmonary embolism 4. Atrial flutter, intermittent. Not present on admission are active. 5. Hypertension, present on admission and stable. 6. Severe Chronic Protein Calorie Malnutrition r/t to decreased ability to consume sufficient energy needs as evidenced by severe muscle wasting (temporalis, interosseous, pectoralis, deltoids, trapezius), <75% estimated energy needs for >1 month, and moderate loss of subcutaneous fat pads (orbital, buccal, triceps). PLAN: -per Dr. Rothman of Oncology in [place] [employer], transfuse platelets and prednisone 50 mg daily started on 05/17 and melena now improving -platelets decreased to 10k on 05/19, started IVIG x3 days -daily CBC -platelets now improved to 180k, continue to trend -Protonix IV b.i.d. -she has likely not a candidate for endoscopy with her thrombocytopenia, and this will likely be treated primarily medically. -she is interested in establishing with Dr. Spence at [facility], referral sent on 05/21 for urgent follow-up -enema for constipation on 05/21 -lasix IV for LE edema We will hold blood pressure medications monitoring the situation. She is DNR. Her is her proxy decision maker. Dispo: Home likely on 05/22. Time Spent With Patient Time with patient: 30 to 49 minutes with 50% spent counseling/coordinating care Quality VTE Deep Vein Thrombosis/Pulmonary Embolism Present on Admission: No
--- NOTE | 2023-05-22 15:40 | PT.IIE ---
Current Diagnoses Paroxysmal atrial fibrillation (05/18/23) Venous insufficiency (chronic) (peripheral) (05/18/23) Localized edema (05/18/23) Unspecified open wound, left lower leg, subsequent encounter (05/18/23) Surgical History (Last Reviewed 05/21/23 @ 13:01 by Brady Bear MD) History of splenectomy History of tonsillectomy Status post hysterectomy Medical History (Last Reviewed 05/21/23 @ 13:01 by Brady Bear MD) Anxiety Atrial flutter Chronic ITP (idiopathic thrombocytopenic purpura) Chronic steroid use Hypertension Microscopic hematuria Osteoporosis Pulmonary embolism and infarction Scoliosis Physical Therapy Inpatient Evaluation/Re-Eval M1 PT/OT-IP Prior Functional Status Start: 05/22/23 13:26 Freq: NEEDED Status: Active Protocol: Document 05/22/23 13:18 MB (Rec: 05/22/23 15:40 MB [id number]) Medical Review Prior Functional Status Medical History Reviewed Yes Diet/Fluid Consistency Regular Communication Unsure baseline communication, pt with some cognitive challenges this date Mobility and Gait Pt reports I and that she lives with her Activities of Daily Living and IADL's Pt reports I Social History Household Members spouse Living Arrangements House Number of Floors (Floors) One Floor Number of Stairs To Enter/Railing? 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 M2 PT-IP Current Condition Start: 05/22/23 13:26 Freq: NEEDED Status: Active Protocol: Document 05/22/23 13:18 MB (Rec: 05/22/23 15:40 MB [id number]) Physical Therapy Current Condition Current Condition Evaluation Date 05/22/23 Treatment Diagnosis Melena, thrombocytopenia, history of ITP M3 PT-IP Subjective Start: 05/22/23 13:26 Freq: NEEDED Status: Active Protocol: Document 05/22/23 13:18 MB (Rec: 05/22/23 15:40 MB [id number]) Subjective Physical Therapy Visit Type Type Initial Evaluation Visit Start Time 13:18 Visit Stop Time 13:42 Number of PHYSICAL THERAPY COORDINATOR Visits 0 Physical Therapy Visit Comments Patient Comments Pt refuses PT initially and then when PT educates pt that PT will let MD know that she has refused PT three times, pt is agreeable to PT. If the doctor thinks I need it but I think it's ridiculous. I don't want to walk out there because there are sick people here and I have a lot of medical issues. Therapy Pain Assessment Pain When Pain Assessed At Rest Pain Present Pain Present Pain Reported Location LLE Intensity 2 Scale Used Ly (Faces) M4 PT-IP Mobility and Gait Start: 05/22/23 13:26 Freq: NEEDED Status: Active Protocol: Document 05/22/23 13:18 MB (Rec: 05/22/23 15:40 MB [id number]) PT-Bed Mobility Assessment Rolling Type of Rolling Bilateral Level of Assist Independent Supine to Sit Supine to Sit Independent Sit to Supine Sit to Supine Independent Scooting Scooting to Edge of Bed Independent PT-Transfer Assessment Sit to and From Stand Sit to and from Stand Standby Assistance,1 Person Assistance,Use of Upper Extremities Equipment Transfer Assistive Device Gait Belt,Front Wheeled Walker Orthotic/Prosthetic Devices or Brace: No Transfers Transfer Destination Bed,Chair Transfer Technique Ambulation Transfer Ability Level of Assist Standby Assistance Comments Mobility Comments Pt tends to push up from the walker rather than the bed or chair. Pt requires cues but does not remember the next time for transferring. Pt with poor safety awareness and command-following and does not pay attention to IV and tends to turn into the line and she has trouble operating walker and runs PT into the wall or bed with IV pole Gait Assessment Gait Gait Assistance Required: Contact Guard Assist,1 Person Assist Distance (Feet) 75 Able to Maintain Weight Bearing Status Yes During Gait Assistive Devices Assistive Device Gait Belt,Front Wheeled Walker Orthotic/Prosthetic Devices or Brace: Yes Gait Deviations General Gait Pattern Flexed Trunk Factors Limiting Gait Function Factors Limiting Gait Function Difficulty Following Directions,Poor Balance,Poor Safety Awareness Comments Gait Comments Pt with B LE edema and discoloration, worse on the left and large dressing on left LLE. Pt with poor safety awareness and see comments above Stair Climbing Assessment Evaluation Level of Assist On Stairs Contact Guard Assistance Devices Stair Climbing Assistive Devices Left Railing,Right Railing Technique/Endurance Stair Climbing Direction Ascend and Descend Stair Climbing Technique Step Over Step Number of Steps Climbed 3 Query Text: Stair Climbing Set # Repetitions (reps) 2 Comments Stair Climbing Comments Cues not to turn into IV line x2 and pt has a hard time figuring out what PT is saying and which direction to turn PT-Balance Assessment Sitting Balance and Reactions Static Sitting Balance Ability Good Dynamic Sitting Balance Ability Good Standing Balance and Reactions Static Standing Balance Ability Fair Dynamic Standing Balance Ability Fair Device Used RW M5 PT-IP Objective Assessments Start: 05/22/23 13:26 Freq: NEEDED Status: Active Protocol: Document 05/22/23 13:18 MB (Rec: 05/22/23 15:40 MB [id number]) Orientation Orientation/Cognition Level of Alertness Confusional State Orientation Name,Birthday,Month,Year Safety Awareness Decreased Safety Awareness Comments Pt has trouble following some functional commands and has decreased safety awareness. Occ, her conversation also does not flow with what is happening and she has decreased insight to benefits of balance and gait assessment and does not recall that she is not supposed to get up with assist when PT sees she has alarm on and nsg reminded her of this earlier today Gross Range of Motion Lower Extremity ROM Assessment Within Functional Limits Strength Comments Strength Comments MMT deferred d/t edema and skin changes, functional strength for gait M6 PT-IP Treatment Start: 05/22/23 13:26 Freq: NEEDED Status: Active Protocol: Document 05/22/23 13:18 MB (Rec: 05/22/23 15:40 MB [id number]) Physical Therapy Treatment Education Education Provided Safety M7 PT-IP Assessment and Plan Start: 05/22/23 13:26 Freq: NEEDED Status: Active Protocol: Document 05/22/23 13:18 MB (Rec: 05/22/23 15:40 MB [id number]) PT Summary Assessment and Plan Potential Rehabilitation Potential Fair Status of Condition at Evaluation Evolving Summary Impairments Pain,Cognition,Transfers,Gait, Activity Tolerance Progress Towards Goals Progressing Toward Goals Assessment Summary Pt is an 82 y/o female presenting with LE edema and skin changes with dressing and decreased safety awareness and insight today. She has trouble following commands with PT. She is I with bed mobility and SBA to CGA with transfers and gait. She states she will d/c home with and that she has not had recent falls. is not available during assessment. Pt has refused PT twice before today and will attempt treatment while in the hospital. She may benefit from an OT cognitive consult. Goals Transfer Goal Independent,Front Wheeled Walker Gait Goal Independent,Front Wheel Walker Gait Distance 100 Other Goals Pt will ascend and descend 8 steps with two rails to allow safe home entrance. Days to Meet Goals 5 Frequency of Treatment Frequency Of Treatment Once a Day Treatment Plan Physical Therapy Treatment Plan Transfer Training,Gait Training,Therapeutic Exercise, Balance Retraining,Discharge Planning,Neuromuscular Re-ed, Coordination Retraining Precautions Other Precautions Fall risk and LE edema and skin changes Weight Bearing Status Weight Bearing Status Weight Bear as Tolerated Recommendations To Nursing Amount of Assist Needed 1 Person Assist Discharge Recommendations PT Discharge Recommendations Home with 02/09 Assist Available,Home Health Transportation Needs at Discharge Private Vehicle
[2023-05-22 17:14] VITALS: BP 155/86; PULSE 107; RESP 18; TEMP 36.2; O2SAT 95
[2023-05-22] MEDS: FLEETS ENEMA 1 EACH PR (17:49)
[2023-05-22 19:56] VITALS: BP 163/100; PULSE 108; RESP 17; TEMP 36.3; O2SAT 96
[2023-05-22 20:26] VITALS: BP 163/100; PULSE 90
[2023-05-22] MEDS: MELATONIN 3 MG TABLET PO (20:26)
[2023-05-22] MEDS: polyethylene glycoL 3350 17 GM POWD.PACK PO (20:26)
[2023-05-22] MEDS: LORazepam 0.5 MG TABLET PO (20:26)
[2023-05-22] MEDS: OXYCODONE IR 5 MG TABLET PO (20:27)
[2023-05-22] MEDS: ACETAMINOPHEN 325 MG TABLET 650 MG PO (20:27)
[2023-05-23 04:40] VITALS: BP 144/79; PULSE 73; RESP 16; TEMP 35.9; O2SAT 92
[2023-05-23] MEDS: predniSONE 20 MG TABLET 60 MG PO (08:27)
[2023-05-23] MEDS: CHOLECALCIFEROL (VITAMIN D3) 1,000 UNIT TABLET 1000 UNIT PO (08:27)
[2023-05-23] MEDS: PANTOPRAZOLE 40 MG VIAL IV (08:27)
[2023-05-23] MEDS: FUROSEMIDE 20 MG/2 ML VIAL IV (08:27)
[2023-05-23] MEDS: dilTIAZem 30 MG TABLET PO (08:27)
--- NOTE | 2023-05-23 09:04 | DIET.CONS2 ---
Dietary Inpatient Consultation Note Admission Date: 05/18/2023 12:17 Nutrition f/u on pt dx with severe chronic protein calorie malnutrition on 05/19/[address] Average PO intakes during stay are 75-100%. Content of meals reviewed via DFM, all include protein source. Ensure enlive being sent BID. Will continue to monitor PO intakes and weight. Diet: 05/18/23 Dinner Heart Healthy Diet Diet Modifications: Nutrition Percent Meal Consumed 100% 05/22/23 09:00 Percent Meal Consumed 50% 05/21/23 18:00 Percent Meal Consumed 100% 05/21/23 13:01 Percent Meal Consumed 100% 05/21/23 09:25 Electronically Signed by: Germania Tadeo 05/23/23 09:04 Clinical Dietitian [address] [id number]
[2023-05-23 09:11] LABS: Add Manual Diff / Slide Review NO; Basophils Absolute Auto 100 /uL (0-100); Basophils Percent Auto 0.8 % (0-2); Eosinophils Absolute Auto 100 /uL (0-450); Eosinophils Percent Auto 0.7 % (2-4); Hematocrit 34.5 % (36-46); Hemoglobin 11.7 g/dL (12.0-16.0); Lymphocytes Absolute Auto 1000 /uL (1100-4500); Lymphocytes Percent Auto 11.5 % (25-40); Mean Corpuscular HGB Conc 33.8 % (30-36); Mean Corpuscular Hemoglobin 28.8 PG (26-34); Mean Corpuscular Volume 85.1 fL (80-100); Monocytes Absolute Auto 600 /uL (0-900); Neutrophils Absolute Auto 6800 /uL (1500-7000); Platelet Count 176 X10^3/uL (150-400); Red Blood Cell Count 4.06 X10^6/uL (4.0-5.2); Red Cell Distribution Width 16.4 % (11.6-14.8); White Blood Cell Count 8.5 X10^3/uL (4.5-11.0)
--- NOTE | 2023-05-23 10:13 | PM.DS.1 ---
History of Present Illness History of Present Illness Date Patient Seen: 05/23/23 Time Patient Seen: 10:13 Chief complaint: Rectal bleeding Narrative: Per admitting provider, The patient is an 82-year-old female with history of ITP who is on chronic steroids. She also has had atrial fibrillation and hypertension. She presents today with black stools as well as oozing and bleeding from her mouth. The patient began to notice change in her stools yesterday. The patient notes that she recently had her oral steroids decreased in strength from 60 mg a day to about 10 mg a day. In addition the patient receives NPlate (Romiplostin) injections weekly. The emergency physician discussed the case with Dr. Rothman, of Oncology in [place]. Recommendations were to restart prednisone 60 mg and transfuse platelets. These were ordered in the ED but are pending. She has been dealing with ITP since 2006. She notes that her recent prednisone taper from 60 down to 10 is likely what caused this to escalate. She is received IVIG many times in the past with good response. She was placed on romiplostim more recently and did see good effect with this. She denies any history of bleeding episodes until this episode. She did take some blood in her mouth but has not been coughing up or vomiting up blood. No epistaxis. She did have several small volume dark stools. She denies any abdominal pain. No recent nonsteroidals. She is DNR, and has filled out a pulsed staying this in the past. She lives in [place] in a care home center and her lives nearby and they are previous home. She does note recent constipation. Discharge Providers Provider Date of admission: 05/18/23 12:17 Discharge Date: 05/23/23 Primary care physician: Jayson Machado MD Consults: 05/19/23 10:32 Consult to Physical Therapy Evaluate & Treat Comment: Physician Instructions: Evaluate and Treat 05/21/23 11:05 Consult to Wound Care Routine Comment: Consulting Provider: [facility] Discharge provider: Thomas Lyons DO Summary Hospital Course Discharge Diagnosis: 1. Melena with thrombocytopenia, present on admission and melena resolved. 2. ITP with worsening platelet count in context of recent prednisone taper, present on admission and now improving. 3. Remote pulmonary embolism 4. Atrial flutter, intermittent. Not present on admission are active. 5. Hypertension, present on admission and stable. 6. Severe Chronic Protein Calorie Malnutrition r/t to decreased ability to consume sufficient energy needs as evidenced by severe muscle wasting (temporalis, interosseous, pectoralis, deltoids, trapezius), <75% estimated energy needs for >1 month, and moderate loss of subcutaneous fat pads (orbital, buccal, triceps). Hospital Course: 82 F wtih PMH of ITP, prior PE, aflutter, HTN who was admitted with ITP flare and presumed GI bleeding from melena. Discussed with surgery and urgent endoscopy was not necessary. Started on IV PPI BID empirically. With plt transfusion, steroids, and IVIG patient improved and no further bleeding was noted. H/h remained stable, and Plt count increased to 180 and stayed there. She was discharged on a prolonged steroid taper after discussion with hematology/oncology service. Patient was given a new referral for [facility] heme/onc provider. For her malnutrition, this contributes to her worsening blood counts, and was seen by temperature regulator pyrometer and continued high caloric supplements like ensure were recommended for the patient. Given lack of bleeding, but no endoscopy, PPI was reduced to 20 mg daily on discharge, recommend continuing until re-evaluation as an outpatient with heme-onc and or PCP. Time Spent with Patient Time spent: Greater than 30 minutes Exam Vital Signs (past 8 hours): - 05/23/23 04:40 Temperature 96.6 F L Pulse Rate 73 Respiratory Rate 16 Blood Pressure 144/79 H Pulse Oximetry 92 Oxygen Flow Rate 0 Oxygen Delivery Method Room Air Oxygen Flow Rate 0 Narrative Exam Narrative: Gen: Alert, oriented, thin and cachectic 81 y.o. ? female, NAD HEENT: normocephalic, atraumatic, conjunctiva clear, sclera non-icteric, oral mucosa pink and moist Neck: supple, full ROM, no JVD, trachea is midline Resp: Lungs CTA, non-labored breathing CV: RRR, no murmur or rubs Abd: soft, non-tender, normoactive BTs Skin: Thin and friable with multiple bruises on her upper extremities, appears dry w/poor turgor Neuro: Alert and oriented X 4 w/no focal deficits. Speech clear and coherent. Extremities: moves all 4 extremities, is ambulatory, negative Avery?s sign Psyche: normal mood and affect. Objective Labs 05/23/23 08:53 05/22/23 05:05 Labs: Laboratory Results - last 24 hr 05/23/23 08:53 WBC 8.5 RBC 4.06 Hgb 11.7 L Hct 34.5 L MCV 85.1 MCH 28.8 MCHC 33.8 RDW 16.4 H Plt Count 176 Neut % (Auto) 80.0 H Lymph % (Auto) 11.5 L Rogers % (Auto) 7.0 Eos % (Auto) 0.7 L Baso % (Auto) 0.8 Neut # (Auto) 6800 Lymph # (Auto) 1000 L Rogers # (Auto) 600 Eos # (Auto) 100 Baso # (Auto) 100 PFSH Medical History Chronic ITP (idiopathic thrombocytopenic purpura) Pulmonary embolism and infarction Chronic steroid use Microscopic hematuria Scoliosis Anxiety Osteoporosis Atrial flutter Hypertension Surgical History History of splenectomy Status post hysterectomy History of tonsillectomy Family History Father Cancer Mother Bleeding disorder Brother Brain cancer Social History marital status: household members: spouse lives independently: Yes Smoking Status: Former smoker alcohol intake: former Discharge Plan Discharge Plan Patient Disposition: Home Provider Discharge Comment: You were admitted to the hospital for ITP flare. Steroids restarted, take 40 mg daily for 1 week, 30 mg daily for 2nd week, then 20 mg daily until follow up with heme/onc. Please call their office for follow up appointment. Discharge orders & Medications Prescriptions: New prednisone 20 mg tablet See Rx Instructions .ROUTE .COMPLEX Qty: 67 0RF Rx Instructions: take 40 mg daily for 1 week, 30 mg daily for 1 week, then 20 mg daily for 6 weeks. pantoprazole 20 mg tablet,delayed release (DR/EC) 20 mg PO DAILY Qty: 30 0RF Continued polyethylene glycol 3350 [Miralax] 17 GM powder in packet 17 gm PO BEDTIME Qty: 0 lorazepam 0.5 mg tablet 0.5 mg PO BEDTIME Qty: 30 0RF Rx Instructions: take by mouth once daily at bedtime estradiol 0.01 % (0.1 mg/gram) cream 2 g vaginal 2XW Patient Comments: takes sundays and wednesdays diltiazem HCl 30 mg tablet 30 mg PO BID vitamin B complex Tablet 1 tab PO DAILY cholecalciferol (vitamin D3) [Vitamin D3] 25 mcg (1,000 unit) Capsule 1 mcg PO DAILY Adults Multivitamin 18 mg iron-400 mcg-25 mcg Tablet 1 tab PO DAILY melatonin 3 mg Capsule 3 mg PO BEDTIME Discontinued prednisone 10 mg tablet 10 mg PO DAILY Patient Comments: pt states this was lowered last week to 10mg daily Follow up/Referrals: Henny Dinh PA-C [Family Provider] - Other Ambulatory Orders: Referral to: (Schedule) Timeframe: 1 Week Location: Outside Services Ordered By: Juan Antonio Yeboah Diet/Activity/Treatments Diet: Diet as Tolerated and Regular Activity: As tolerated, no restrictions Visit Report/Discharge Packet Instructions: Platelet Count, DI for Prescription Opioid Use, Prednisone, Pantoprazole Stand Alone Forms: Patient Portal/API, Stroke Signs & Symptoms Discharge Data Primary Care Provider: Jayson Machado [facility] Deep Vein Thrombosis/Pulmonary Embolism Present on Admission: No
--- NOTE | 2023-05-23 10:22 | PT.IPTN ---
Current Diagnoses Paroxysmal atrial fibrillation (05/18/23) Venous insufficiency (chronic) (peripheral) (05/18/23) Localized edema (05/18/23) Unspecified open wound, left lower leg, subsequent encounter (05/18/23) Physical Therapy Treatment Note M2 PT-IP Current Condition Start: 05/22/23 13:26 Freq: NEEDED Status: Active Protocol: Document 05/22/23 13:18 MB (Rec: 05/22/23 15:40 MB [id number]) Physical Therapy Current Condition Current Condition Evaluation Date 05/22/23 Treatment Diagnosis Melena, thrombocytopenia, history of ITP M3 PT-IP Subjective Start: 05/22/23 13:26 Freq: NEEDED Status: Active Protocol: Document 05/23/23 10:37 TS (Rec: 05/23/23 10:44 TS [id number]) Subjective Physical Therapy Visit Type Type Treatment Note Visit Start Time 10:22 Visit Stop Time 10:37 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 M4 PT-IP Mobility and Gait Start: 05/22/23 13:26 Freq: NEEDED Status: Active Protocol: Document 05/23/23 10:37 TS (Rec: 05/23/23 10:44 TS [id number]) PT-Transfer Assessment Sit to and From Stand Sit to and from Stand Standby Assistance,1 Person Assistance,Use of Upper Extremities Equipment Transfer Assistive Device None,Gait Belt Orthotic/Prosthetic Devices or Brace: Yes Comments Mobility Comments STS from chair SBA with no AD. She ambulated in hallway ~250 'SBA with no AD. Tends to have NBOS with turns and becomes unsteady. She performed steps x3 with B handrails step over step with no buckling or LOB. Pt ambualted back to room. Educated pt on benefits of using a walker or walking sticks. Pt was left in chair, all needs met. Gait Assessment Gait Gait Assistance Required: Standby Assistance Distance (Feet) 250 Able to Maintain Weight Bearing Status Yes During Gait Assistive Devices Assistive Device None,Gait Belt Orthotic/Prosthetic Devices or Brace: Yes Factors Limiting Gait Function Factors Limiting Gait Function Poor Balance,Poor Safety Awareness Comments Gait Comments See mobility comments Stair Climbing Assessment Evaluation Level of Assist On Stairs Contact Guard Assistance Devices Stair Climbing Assistive Devices Left Railing,Right Railing Technique/Endurance Stair Climbing Direction Ascend and Descend Stair Climbing Technique Step Over Step Number of Steps Climbed 3 Stair Climbing Set # Repetitions (reps) 1 PT-Balance Assessment Sitting Balance and Reactions Static Sitting Balance Ability Good Dynamic Sitting Balance Ability Good Standing Balance and Reactions Static Standing Balance Ability Fair Dynamic Standing Balance Ability Fair M5 PT-IP Objective Assessments Start: 05/22/23 13:26 Freq: NEEDED Status: Active Protocol: Document 05/22/23 13:18 MB (Rec: 05/22/23 15:40 MB [id number]) Orientation Orientation/Cognition Level of Alertness Confusional State Orientation Name,Birthday,Month,Year Safety Awareness Decreased Safety Awareness Comments Pt has trouble following some functional commands and has decreased safety awareness. Occ, her conversation also does not flow with what is happening and she has decreased insight to benefits of balance and gait assessment and does not recall that she is not supposed to get up with assist when PT sees she has alarm on and nsg reminded her of this earlier today Gross Range of Motion Lower Extremity ROM Assessment Within Functional Limits Strength Comments Strength Comments MMT deferred d/t edema and skin changes, functional strength for gait M6 PT-IP Treatment Start: 05/22/23 13:26 Freq: NEEDED Status: Active Protocol: Document 05/23/23 10:37 TS (Rec: 05/23/23 10:44 TS [id number]) Physical Therapy Treatment Education Education Provided Safety M7 PT-IP Assessment and Plan Start: 05/22/23 13:26 Freq: NEEDED Status: Active Protocol: Document 05/23/23 10:37 TS (Rec: 05/23/23 10:44 TS [id number]) PT Summary Assessment and Plan Potential Rehabilitation Potential Fair Summary Impairments Pain,Cognition,Transfers,Gait, Activity Tolerance Progress Towards Goals Progressing Toward Goals Assessment Summary Mayur is making good progress with her mobility. She is SBA for STS with no AD. She progressed her ambulation to ~ 250'SBA with no AD. She is slightly unsteady with turns and tends to have a NBOS. Pt was educated on the benefits of using an AD, she agreed. PT is recommending pt return home with assist and HHPT. Goals Transfer Goal Independent,Front Wheeled Walker Gait Goal Independent,Front Wheel Walker Gait Distance 100 Other Goals Pt will ascend and descend 8 steps with two rails to allow safe home entrance. Days to Meet Goals 5 Frequency of Treatment Frequency Of Treatment Once a Day Treatment Plan Physical Therapy Treatment Plan Transfer Training,Gait Training,Therapeutic Exercise, Balance Retraining,Discharge Planning,Neuromuscular Re-ed, Coordination Retraining Precautions Other Precautions Fall risk and LE edema and skin changes Weight Bearing Status Weight Bearing Status Weight Bear as Tolerated Recommendations To Nursing Amount of Assist Needed Independent Discharge Recommendations PT Discharge Recommendations Home with Assistance,Home Health Transportation Needs at Discharge Private Vehicle
--- NOTE | 2023-05-23 11:08 | PC.NURSE ---
Patient is going to be discharged to home today after lunch.
--- NOTE | 2023-05-23 14:41 | CM.DPNOTE ---
DC Note Patient has been discharged. Met w/patient to review discharge plan. Patient walking independently in room. Patient plans to return home w/spouse, with close outpatient follow up with onc and outpatient wound care. Discussed HH services; patient agreeable and asks for [facility]. Completed and signed F2F, face sheet and HH order emailed to Zita at [facility]. Plan: Discharge home today, spouse to drive home, [facility] referral for RN/PT, outpatient wound care with Dr Bear, outpatient follow up with established oncologist in [place]. JW
== END 2023-05-23 13:08 | disposition home health service (06) | DRG 813 ==
LOC: ED 12:16 → AC 13:15
PROVIDERS: Internal Medicine; Student in an Organized Health Care Education/Training Program; Admitting Provider Hospitalist; Emergency Provider Emergency Medicine; Family Provider Physician Assistant; PCP Family Medicine; Referring Provider Emergency Medicine; Visit Provider Hospitalist
DX: D69.3 Immune thrombocytopenic purpura (principal); E43 Unspecified severe protein-calorie malnutrition; K92.1 Melena; I48.92 Unspecified atrial flutter; Z68.1 Body mass index [BMI] 19.9 or less, adult; I10 Essential (primary) hypertension; Z79.52 Long term (current) use of systemic steroids; Z66 Do not resuscitate; Z86.711 Personal history of pulmonary embolism; Z90.81 Acquired absence of spleen; Z83.2 Family history of diseases of the blood and blood-forming organs and certain disorders involving the immune mechanism; Z87.891 Personal history of nicotine dependence; Z79.890 Hormone replacement therapy; Z88.0 Allergy status to penicillin; Z88.2 Allergy status to sulfonamides; Z91.041 Radiographic dye allergy status; K59.00 Constipation, unspecified; S81.802D Unspecified open wound, left lower leg, subsequent encounter; W54.1XXD Struck by dog, subsequent encounter; I87.2 Venous insufficiency (chronic) (peripheral)
CPT/HCPCS: 36415; 36430; 70450; 74174; 80048; 80053; 81003; 81015; 85025; 85027; 85610; 85730; 86850; 86900; 86901; 93005; 96374; 96375; 97161; 97530; 99232; 99284; C9113; J1459; J1940; J2405; P9035; Q9967

== ENCOUNTER 2023-05-25 09:41 | Emergency (ER) | payer MEDICARE, OTHER, SELFPAY ==
[2023-05-18 13:38] VITALS: BMI 20.9
[2023-05-25] VITALS (8 sets, daily range): BP systolic 153–177; BP diastolic 81–104; PULSE 49–79; RESP 14–25; TEMP 36.5; O2SAT 95–98; BMI 18.3
--- NOTE | 2023-05-25 10:21 | DI.CT.S_ITS ---
PROCEDURE: CT CERVICAL SPINE WO CON INDICATIONS: fall, hit head, hx ITP with low platelets TECHNIQUE: Noncontrast 3 mm thick sections acquired from the skull base to the T4 level. Sagittal and coronal reformats were then constructed. For radiation dose reduction, the following was used: automated exposure control, adjustment of mA and/or kV according to patient size. COMPARISON: [facility], CT, CT HEAD/BRAIN WO CON, 05/25/2023, 10:37. [facility], CT, CT CERVICAL SPINE WO CON, 03/18/2023, 10:37. FINDINGS: Image quality: Excellent. Bones: No fractures or dislocations. Visualized superior ribs are intact. There is moderate disc space narrowing seen at C4-C5, with moderate to severe disc space narrowing seen at C5-C6 and C6-C7. Endplate irregularity and sclerosis are seen, which are worst at C5-C6. Posteriorly directed endplate osteophytes can be seen inferiorly. Milder degenerative changes are seen elsewhere. Soft tissues: Prevertebral soft tissues are normal in thickness. No paravertebral hematomas. No apical pneumothoraces. There is mild persistent opacity seen involving the right lung apex, which may be related to scarring. IMPRESSION: No displaced fracture or traumatic subluxation. Cervical spine degenerative changes are seen, which are worst inferiorly. Dictated by: Sam Paul M.D. on 05/25/2023 at 9:47 Approved by: Sam Paul M.D. on 05/25/2023 at 9:49
--- NOTE | 2023-05-25 10:21 | DI.CT.S_ITS ---
PROCEDURE: CT HEAD/BRAIN WO CON INDICATIONS: fall, hit head, hx ITP with low platelets in past TECHNIQUE: Noncontrast 4.5 mm thick angled axial sections acquired from the foramen magnum to the vertex, with coronal and sagittal reformats. For radiation dose reduction, the following was used: automated exposure control, adjustment of mA and/or kV according to patient size. COMPARISON: [facility], CT, CT HEAD/BRAIN WO CON, 03/18/2023, 10:37. [facility], CT, CT CERVICAL SPINE WO CON, 05/25/2023, 10:37. [facility], CT, CT HEAD/BRAIN WO CON, 05/18/2023, 10:24. FINDINGS: Image quality: Mild streak artifact can be seen through the skull base. CSF spaces: Basal cisterns are patent. No extra-axial fluid collections. The ventricles are symmetric in size and shape. Brain: No intracranial bleeds or masses. There is cerebral volume loss for age, with resultant ventricular and sulcal prominence. There are periventricular and deep white matter chronic small vessel ischemic changes. There is intracranial internal carotid artery atherosclerosis. Skull and face: Calvarium and visualized facial bones appear intact, without suspicious lesions. Sinuses: Visualized sinuses and mastoids are clear. IMPRESSION: No acute intracranial hemorrhage is seen. No acute intracranial pathology. Similar to priors. Dictated by: Sam Paul M.D. on 05/25/2023 at 9:49 Approved by: Sam Paul M.D. on 05/25/2023 at 9:51
--- NOTE | 2023-05-25 10:25 | ED.HEATRA ---
HPI - Head Injury General Chief complaint: Head Injury Stated complaint: Fell out of bed/ hit head a table/ has ITP Time Seen by Provider: 05/25/23 10:21 Source: patient Mode of arrival: Ambulatory Limitations: no limitations History of Present Illness HPI Narrative: 82-year-old female with a history of ITP on chronic steroids and Nplate (Romiplostin) injections weekly, hypertension, atrial fibrillation who had a recent hospitalization for GI bleed after her injections were held. Patient was discharged yesterday platelets had improved quite a bit. She states this morning she would quite realize where she was in bed rolled out of bed and fell hitting the temporal. Patient states she has a little bit of pain. Feels some fullness in her head. Denies any neck pain. Denies any other injuries. She states no additional bleeding today or in the last day or so. She feels little nauseated but denies any other symptoms. Denies loss of consciousness. No chest pain or shortness of breath, no other GI or urinary symptoms. Patient states that she has been ambulating and participating in activities during her hospitalization she has a little bit weaker but states she has been moving normally. She has had falls in the past as well. Related Data Home Medications Medication Instructions Recorded Confirmed polyethylene glycol 3350 17 gram 17 gm PO BEDTIME Constipation ##0 05/26/17 05/18/23 oral powder packet (Miralax) cholecalciferol (vitamin D3) 25 1 mcg PO DAILY 05/18/23 05/18/23 mcg (1,000 unit) capsule (Vitamin D3) diltiazem HCl 30 mg tablet 30 mg PO BID 05/18/23 05/18/23 estradiol 0.01% (0.1 mg/gram) 2 g vaginal 2XW 05/18/23 05/18/23 vaginal cream melatonin 3 mg capsule 3 mg PO BEDTIME 05/18/23 05/18/23 multivit with minerals-iron 18 1 tab PO DAILY 05/18/23 05/18/23 mg-folic ac 400 mcg-vit K 25 mcg tablet (Adults Multivitamin) vitamin B complex 1 tab PO DAILY 05/18/23 05/18/23 Previous Rx's Medication Instructions Recorded lorazepam 0.5 mg tablet 0.5 mg PO BEDTIME #30 tabs 04/05/22 pantoprazole 20 mg tablet,delayed 20 mg PO DAILY #30 tabs 05/23/23 release prednisone 20 mg tablet See Rx Instructions .Route 05/23/23 .COMPLEX #67 tabs Allergies Allergy/AdvReac Type Severity Reaction Status Date / Time latex Allergy Mild LOCAL RASH Verified 03/18/23 10:30 Penicillins Allergy Mild CHILDHOOD Verified 03/18/23 10:30 Sulfa (Sulfonamide Allergy Mild SOMETHING Verified 03/18/23 10:30 Antibiotics) TO DO WITH BLADDER OR KIDNEY'S?? 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 HEAD: No evidence of trauma, no raccoon/Hester sign. NECK: Nontender, painless range of motion, trachea midline Night Nexus criteria, no midline line tenderness, distracting injury, altered mental status, neuro deficit, recent EtOH. EYES: PERRLA, EOMI ENT: External inspection normal, trachea is midline, TM's are normal no hemotypanum, Nares are clear, no septal hematoma, no dental or oral injury, airway is normal and with normal occlusion, No bony tenderness RESP: Chest is nontender and has symmetric movement, no ecchymosis, breath sounds are normal no crackles, wheezes or rales CVS: Heart sounds are normal, no murmur noted, No JVD. ABG/GI: Nontender, soft, normal bowel sounds, no distention, no organomegaly, pelvic rock is negative NEURO: Oriented AOx3, neuro is grossly intact, sensation and motor is normal all 4 extremities moving, cranial nerves II through XII are intact, GCS is 15 PSYCH: Normal mood and affect SKIN: Intact, warm and dry, no crepitus and without decubitus, patient has several areas of ecchymosis on upper and lower extremities but appear older than age. Patient does not appreciate any new changes. BACK: No CVA tenderness, no vertebral tenderness, no step-off's, no crepitus EXT: Atraumatic, hips are nontender, normal range of motion of upper and lower extremities. Patient does have some bilateral edema lower extremities. She does have large bandage on her left calf. Initial Vital Signs Initial Vital Signs: Vital Signs Pulse Rate 71 05/25/23 09:48 Pulse Oximetry 97 05/25/23 09:[address] [place] [address] Head Rule Age <16 years old: No Patient on blood thinners: No Seizure after injury: No Exclusion: Patient NOT Excluded, Proceed to next steps GCS < 15 at 2 hr post trauma: No Suspected open or depressed skull fracture: No Any sign of basilar skull fracture (hemotympanum, raccoon eyes, Hester's sign, CSF sandra-/rhinorrhea): No Two or more episodes of vomiting: No Age greater or equal to 65 years: Yes Retrograde amnesia to the event greater or equal to 30 min: No Dangerous Mechanism (pedestrian vs. mv, occupant ejected from mv, fall from >3 ft or > 5 stairs): No Recommendation: Consider CT. The [place] Head CT Rule cannot rule out need for Imaging. GCS [place] coma scale eye opening: Spontaneous Melinda coma scale verbal response: Orientated [place] coma scale motor response: Obey commands [place] coma scale total score: 15 Course Orders Ordered: ED Orders 05/25/23 10:18 CBC Auto Diff [Complete Blood Count AUTO DIFF] Stat CMP [Comprehensive Metabolic Panel] Stat PTT Partial Thromboplastin Nelson Stat Prothrombin Time INR Stat 05/25/23 10:21 CT cervical spine wo con Stat CT head/brain wo con Stat Discontinued Medications Ondansetron HCl (Ondansetron 4 Mg/2 Ml Inj) 4 mg IV NOW ONE Stop: 05/25/23 10:24 Last Admin: 05/25/23 10:29 Dose: 4 mg Documented By: KIM Vital Signs Vital signs: Vital Signs - 8 hr 05/25/23 09:48 05/25/23 09:50 05/25/23 10:00 Temperature 97.7 F Pulse Rate 71 79 Respiratory Rate 18 Blood Pressure 172/104 H 167/87 H Pulse Oximetry 97 97 Oxygen Delivery Method Room Air 05/25/23 10:00 05/25/23 10:27 05/25/23 10:27 Temperature Pulse Rate 64 55 L Respiratory Rate 23 25 H Blood Pressure 177/84 H Pulse Oximetry 95 95 Oxygen Delivery Method 05/25/23 10:50 05/25/23 10:51 05/25/23 10:51 Temperature Pulse Rate 70 59 L Respiratory Rate 24 17 Blood Pressure 153/92 H Pulse Oximetry 97 98 Oxygen Delivery Method 05/25/23 11:00 05/25/23 11:00 05/25/23 11:07 Temperature Pulse Rate 49 L 56 L Respiratory Rate 14 22 Blood Pressure 155/81 H Pulse Oximetry 96 96 Oxygen Delivery Method 05/25/23 11:07 Temperature Pulse Rate Respiratory Rate Blood Pressure 156/94 H Pulse Oximetry Oxygen Delivery Method MDM - Head Injury Lab Data 05/25/23 10:18 05/25/23 10:18 Labs: Lab Results 05/25/23 Range/Units 10:18 WBC 10.0 (4.5-11.0) X10^3/uL RBC 4.20 (4.0-5.2) X10^6/uL Hgb 11.8 L (12.0-16.0) g/dL Hct 35.9 L (36-46) % MCV 85.5 (80-100) fL MCH 28.2 (26-34) PG MCHC 32.9 (30-36) % RDW 16.5 H (11.6-14.8) % Plt Count 191 (150-400) X10^3/uL Neut % (Auto) 68.5 (50-75) % Lymph % (Auto) 19.0 L (25-40) % [place] % (Auto) 11.4 (3-14) % Eos % (Auto) 0.7 L (2-4) % Baso % (Auto) 0.4 (0-2) % Neut # (Auto) 6900 (3736-1210) /uL Lymph # (Auto) 1900 (4663-4477) /uL [place] # (Auto) 1100 H (0-900) /uL Eos # (Auto) 100 (0-450) /uL Baso # (Auto) 0 (0-100) /uL PT 10.9 (9.4-12.5) SECONDS INR 1.0 (0.9-1.3) APTT 25 L (25.1-36.5) SECONDS Sodium 137 (137-145) mmol/L Potassium 4.3 (3.4-5.1) mmol/L Chloride 105 (98-107) mmol/L Carbon Dioxide 30 (22-32) mmol/L BUN 34 H (7-17) mg/dL Creatinine 0.95 (0.52-1.04) mg/dL Estimated GFR 60 (>60) mL/min BUN/Creatinine Ratio 35.8 H (6-22) Glucose 89 (80-110) mg/dL Calcium 9.5 (8.4-10.2) mg/dL Total Bilirubin 0.7 (0.2-1.3) mg/dL AST 28 (14-36) IU/L ALT 24 (<35) IU/L Alkaline Phosphatase 64 (38-126) U/L Total Protein 8.9 H (6.3-8.2) g/dL Albumin 4.2 (3.5-5.0) g/dL Globulin 4.7 H (1.7-4.1) g/dL Albumin/Globulin Ratio 0.9 L (1.0-2.8) Point of Care Testing Glucose POC [address] scan - head: Radiologist's Impression: [place] [address] CT Scan Report Signed Patient: Priscilla Mahan MR#: [id number] : 1940 Acct:[id number] Age/Sex: 82 / F Date of Service: 05/25/23 Loc: ED Accession Number: [id number] Procedure: CT head/brain wo con Ordering Provider: Amara Royal D.O. PROCEDURE: CT HEAD/BRAIN WO CON INDICATIONS: fall, hit head, hx ITP with low platelets in past TECHNIQUE: Noncontrast 4.5 mm thick angled axial sections acquired from the foramen magnum to the vertex, with coronal and sagittal reformats. For radiation dose reduction, the following was used: automated exposure control, adjustment of mA and/or kV according to patient size. COMPARISON: [facility], CT, CT HEAD/BRAIN WO CON, 03/18/2023, 10:37. [facility], CT, CT CERVICAL SPINE WO CON, 05/25/2023, 10:37. [facility], CT, CT HEAD/BRAIN WO CON, 05/18/2023, 10:24. FINDINGS: Image quality: Mild streak artifact can be seen through the skull base. CSF spaces: Basal cisterns are patent. No extra-axial fluid collections. The ventricles are symmetric in size and shape. Brain: No intracranial bleeds or masses. There is cerebral volume loss for age, with resultant ventricular and sulcal prominence. There are periventricular and deep white matter chronic small vessel ischemic changes. There is intracranial internal carotid artery atherosclerosis. Skull and face: Calvarium and visualized facial bones appear intact, without suspicious lesions. Sinuses: Visualized sinuses and mastoids are clear. IMPRESSION: No acute intracranial hemorrhage is seen. No acute intracranial pathology. Similar to priors. Dictated by: Sam Paul M.D. on 05/25/2023 at 9:49 Approved by: Sam Paul M.D. on 05/25/2023 at 9:51 CT - cervical spine: Radiologist's Impression: [place] [address] CT Scan Report Signed Patient: Priscilla Mahan MR#: [id number] : 1940 Acct:[id number] Age/Sex: 82 / F Date of Service: 05/25/23 Loc: ED Accession Number: [id number] Procedure: CT cervical spine wo con Ordering Provider: Amara Royal D.O. PROCEDURE: CT CERVICAL SPINE WO CON INDICATIONS: fall, hit head, hx ITP with low platelets TECHNIQUE: Noncontrast 3 mm thick sections acquired from the skull base to the T4 level. Sagittal and coronal reformats were then constructed. For radiation dose reduction, the following was used: automated exposure control, adjustment of mA and/or kV according to patient size. COMPARISON: [facility], CT, CT HEAD/BRAIN WO CON, 05/25/2023, 10:37. [facility], CT, CT CERVICAL SPINE WO CON, 03/18/2023, 10:37. FINDINGS: Image quality: Excellent. Bones: No fractures or dislocations. Visualized superior ribs are intact. There is moderate disc space narrowing seen at C4-C5, with moderate to severe disc space narrowing seen at C5-C6 and C6-C7. Endplate irregularity and sclerosis are seen, which are worst at C5-C6. Posteriorly directed endplate osteophytes can be seen inferiorly. Milder degenerative changes are seen elsewhere. Soft tissues: Prevertebral soft tissues are normal in thickness. No paravertebral hematomas. No apical pneumothoraces. There is mild persistent opacity seen involving the right lung apex, which may be related to scarring. IMPRESSION: No displaced fracture or traumatic subluxation. Cervical spine degenerative changes are seen, which are worst inferiorly. Dictated by: Sam Paul M.D. on 05/25/2023 at 9:47 Approved by: Sam Paul M.D. on 05/25/2023 at 9:49 [facility] Narrative Medical decision making narrative: 82-year-old female with known ITP who had recent platelet transfusions hospitalization discharge yesterday. Had likely been initiated with her flare secondary to significant drop in her steroids and her Nplate was held. Patient's labs yesterday appeared appropriate but she rolled out of bed when she misjudged where she was not hit her head. Based on age and her history of ITP labs were obtained and head CT and C-spine based on extremity of age. Head CT shows no acute intracranial change Cervical spine no fracture or subluxation Labs white count of 10 hemoglobin 11.8 appears consistent with priors platelets today are 191. INR is 1, BUN 34 but normal creatinine, electrolytes are otherwise appropriate, LFTs are negative total protein, globulin are elevated at 8.9 and 4.7. Discussed with patient results from today. Reviewed her labs as well. She would most definitely elect to return home to have some eggs and veliz. She states she feels comfortable returning home. She does have follow-up in process with hematology to continue her medications. She was supposed to be contacted on this Friday to set up an exact appointment time. Discharge Plan Departure Patient Disposition: Home Clinical Impression: Head injury, Fall Activity Restrictions/Additional Instructions: I hope you continue to feel improved. Follow up with Hematology regarding your ITP. I hope you are next office visit goes well. Please return for severe headaches, new bleeding, inappropriate bruising, new neck or back pain, numbness tingling or weakness, passing out, chest pain or shortness of breath or other new or concerning changes. Prescriptions: No Action polyethylene glycol 3350 [Miralax] 17 GM powder in packet 17 gm PO BEDTIME Qty: 0 lorazepam 0.5 mg tablet 0.5 mg PO BEDTIME Qty: 30 0RF Rx Instructions: take by mouth once daily at bedtime estradiol 0.01 % (0.1 mg/gram) cream 2 g vaginal 2XW Patient Comments: takes sundays and wednesdays diltiazem HCl 30 mg tablet 30 mg PO BID vitamin B complex Tablet 1 tab PO DAILY cholecalciferol (vitamin D3) [Vitamin D3] 25 mcg (1,000 unit) Capsule 1 mcg PO DAILY Adults Multivitamin 18 mg iron-400 mcg-25 mcg Tablet 1 tab PO DAILY melatonin 3 mg Capsule 3 mg PO BEDTIME prednisone 20 mg tablet See Rx Instructions .ROUTE .COMPLEX Qty: 67 0RF Rx Instructions: take 40 mg daily for 1 week, 30 mg daily for 1 week, then 20 mg daily for 6 weeks. pantoprazole 20 mg tablet,delayed release (DR/EC) 20 mg PO DAILY Qty: 30 0RF Referrals: Jayson Machado MD [Primary Care Provider] - Stand Alone Forms: Patient Portal/API
[2023-05-25] MEDS: ONDANSETRON 4 MG/2 ML INJ IV (10:29)
[2023-05-25 10:34] LABS: Prothrombin Time 10.9 SECONDS (9.4-12.5)
[2023-05-25 10:36] LABS: Add Manual Diff / Slide Review NO; Basophils Absolute Auto 0 /uL (0-100); Basophils Percent Auto 0.4 % (0-2); Eosinophils Absolute Auto 100 /uL (0-450); Eosinophils Percent Auto 0.7 % (2-4); Hematocrit 35.9 % (36-46); Hemoglobin 11.8 g/dL (12.0-16.0); Lymphocytes Absolute Auto 1900 /uL (1100-4500); Mean Corpuscular HGB Conc 32.9 % (30-36); Mean Corpuscular Hemoglobin 28.2 PG (26-34); Mean Corpuscular Volume 85.5 fL (80-100); Monocytes Absolute Auto 1100 /uL (0-900); Monocytes Percent Auto 11.4 % (3-14); Neutrophils Absolute Auto 6900 /uL (1500-7000); Neutrophils Percent Auto 68.5 % (50-75); PTT Partial Thromboplastin Tim 25 SECONDS (25.1-36.5); Platelet Count 191 X10^3/uL (150-400); Red Cell Distribution Width 16.5 % (11.6-14.8)
[2023-05-25 10:38] LABS: Alanine Aminotransferase 24 IU/L (<35); Albumin 4.2 g/dL (3.5-5.0); Albumin Globulin Ratio 0.9 (1.0-2.8); Alkaline Phosphatase 64 U/L (38-126); Aspartate Aminotransferase 28 IU/L (14-36); BUN Creatinine Ratio 35.8 (6-22); Bilirubin Total 0.7 mg/dL (0.2-1.3); Blood Urea Nitrogen 34 mg/dL (7-17); Calcium 9.5 mg/dL (8.4-10.2); Carbon Dioxide 30 mmol/L (22-32); Chloride 105 mmol/L (98-107); Estimated Glomerular Filt Rate 60 mL/min (>60); Globulin 4.7 g/dL (1.7-4.1); Glucose 89 mg/dL (80-110); HEMOLYSIS 32 (0-50); Potassium 4.3 mmol/L (3.4-5.1); Sodium 137 mmol/L (137-145); Total Protein 8.9 g/dL (6.3-8.2)
== END 2023-05-25 11:17 | disposition home or self-care (01) ==
PROVIDERS: Emergency Provider Emergency Medicine; Family Provider Physician Assistant; PCP Family Medicine
DX: S09.90XA Unspecified injury of head, initial encounter (principal); W06.XXXA Fall from bed, initial encounter
CPT/HCPCS: 36415; 70450; 72125; 80053; 85025; 85610; 85730; 96374; 99284; J2405

== ENCOUNTER 2023-05-26 18:00 | Emergency (ER) | payer MEDICARE, OTHER, SELFPAY ==
[2023-05-18 13:38] VITALS: BMI 20.9
[2023-05-26 18:04] VITALS: BP 155/92; PULSE 86; RESP 16; TEMP 36.6; O2SAT 97; BMI 18.3
[2023-05-26 18:40] LABS: INR 0.9 (0.9-1.3); Prothrombin Time 10.7 SECONDS (9.4-12.5)
[2023-05-26 18:45] LABS: Alanine Aminotransferase 31 IU/L (<35); Albumin 4.5 g/dL (3.5-5.0); Albumin Globulin Ratio 0.9 (1.0-2.8); Alkaline Phosphatase 75 U/L (38-126); Aspartate Aminotransferase 28 IU/L (14-36); BUN Creatinine Ratio 34.7 (6-22); Bilirubin Total 0.5 mg/dL (0.2-1.3); Blood Urea Nitrogen 41 mg/dL (7-17); Calcium 9.6 mg/dL (8.4-10.2); Carbon Dioxide 24 mmol/L (22-32); Chloride 103 mmol/L (98-107); Estimated Glomerular Filt Rate 46 mL/min (>60); Globulin 4.8 g/dL (1.7-4.1); Glucose 198 mg/dL (80-110); HEMOLYSIS < 15 (0-50); Lipase 155 U/L (23-300); Potassium 4.5 mmol/L (3.4-5.1); Sodium 134 mmol/L (137-145); Total Protein 9.3 g/dL (6.3-8.2)
[2023-05-26 18:46] LABS: Add Manual Diff / Slide Review NO; Basophils Absolute Auto 100 /uL (0-100); Basophils Percent Auto 0.7 % (0-2); Eosinophils Absolute Auto 0 /uL (0-450); Eosinophils Percent Auto 0.2 % (2-4); Hematocrit 34.8 % (36-46); Hemoglobin 11.4 g/dL (12.0-16.0); Lymphocytes Absolute Auto 400 /uL (1100-4500); Lymphocytes Percent Auto 3.6 % (25-40); Mean Corpuscular HGB Conc 32.9 % (30-36); Mean Corpuscular Hemoglobin 28.1 PG (26-34); Mean Corpuscular Volume 85.5 fL (80-100); Monocytes Absolute Auto 100 /uL (0-900); Monocytes Percent Auto 1.3 % (3-14); Neutrophils Absolute Auto 10500 /uL (1500-7000); Neutrophils Percent Auto 94.2 % (50-75); Platelet Count 239 X10^3/uL (150-400); Red Blood Cell Count 4.07 X10^6/uL (4.0-5.2); Red Cell Distribution Width 16.5 % (11.6-14.8); White Blood Cell Count 11.2 X10^3/uL (4.5-11.0)
--- NOTE | 2023-05-26 19:58 | ED.RECABL ---
HPI - Recheck/Abnormal Lab/Rx General Chief Complaint: Recheck/Abnormal Lab/Rx Stated Complaint: Lab Retake Time Seen by Provider: 05/26/23 18:16 Source: patient Mode of arrival: Ambulatory History of Present Illness HPI narrative: 82-year-old female with history of ITP presents for platelet check. Patient states she was notice bruising over her thighs that is unusual and is concerned that her platelets may have dropped. Patient admitted from 05/17-05/22 for low platelets. She was discharged on a prednisone taper. Patient is seen yesterday for evaluation after a fall. Patient states that she feels fatigued and somewhat nauseous and is concerned that her platelets may have dropped again. She also states that she feels that her prednisone dosing was too high and she feels that the prednisone may be making her ill. Related Data Home Medications Medication Instructions Recorded Confirmed polyethylene glycol 3350 17 gram 17 gm PO BEDTIME Constipation ##0 05/26/17 05/18/23 oral powder packet (Miralax) cholecalciferol (vitamin D3) 25 1 mcg PO DAILY 05/18/23 05/18/23 mcg (1,000 unit) capsule (Vitamin D3) diltiazem HCl 30 mg tablet 30 mg PO BID 05/18/23 05/18/23 estradiol 0.01% (0.1 mg/gram) 2 g vaginal 2XW 05/18/23 05/18/23 vaginal cream melatonin 3 mg capsule 3 mg PO BEDTIME 05/18/23 05/18/23 multivit with minerals-iron 18 1 tab PO DAILY 05/18/23 05/18/23 mg-folic ac 400 mcg-vit K 25 mcg tablet (Adults Multivitamin) vitamin B complex 1 tab PO DAILY 05/18/23 05/18/23 Previous Rx's Medication Instructions Recorded lorazepam 0.5 mg tablet 0.5 mg PO BEDTIME #30 tabs 04/05/22 pantoprazole 20 mg tablet,delayed 20 mg PO DAILY #30 tabs 05/23/23 release prednisone 20 mg tablet See Rx Instructions .Route 05/23/23 .COMPLEX #67 tabs Allergies Allergy/AdvReac Type Severity Reaction Status Date / Time latex Allergy Mild LOCAL RASH Verified 05/26/23 18:09 Penicillins Allergy Mild CHILDHOOD Verified 05/26/23 18:09 Sulfa (Sulfonamide Allergy Mild SOMETHING Verified 05/26/23 18:09 Antibiotics) TO DO WITH BLADDER OR KIDNEY'S?? 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 Chronic steroid use Microscopic hematuria Scoliosis Anxiety Osteoporosis Atrial flutter Hypertension Surgical History History of splenectomy Status post hysterectomy History of tonsillectomy Family History Father Cancer Mother Bleeding disorder Brother Brain cancer Social History marital status: household members: spouse lives independently: Yes Smoking Status: Former smoker alcohol intake: former Smoking Status: Former smoker alcohol intake frequency: holidays/special occasions only Substance Use Type: does not use Exam Initial Vital Signs Initial Vital Signs: Vital Signs Temperature 97.8 F 05/26/23 18:04 Pulse Rate 86 05/26/23 18:04 Respiratory Rate 16 05/26/23 18:04 Blood Pressure 155/92 H 05/26/23 18:04 Pulse Oximetry 97 05/26/23 18:04 Oxygen Delivery Method Room Air 05/26/23 18:04 Const: Awake, alert, no acute distress, frail Cardiac: regular rate, regular rhythm RESP: unlabored, clear bilaterally, no wheezing GI: Soft, nontender, nondistended MSK: Atraumatic, full range of motion Skin: Intact, bruising to upper and lower extremities Neuro: AO x3, CN II-XII grossly intact, moves all extremities Course Orders Ordered: ED Orders 05/26/23 18:22 CBC Auto Diff [Complete Blood Count AUTO DIFF] Stat CMP [Comprehensive Metabolic Panel] Stat Lipase Stat PT [Prothrombin Time INR] Stat Vital Signs Vital signs: Vital Signs - 8 hr 05/26/23 18:04 Temperature 97.8 F Pulse Rate 86 Respiratory Rate 16 Blood Pressure 155/92 H Pulse Oximetry 97 Oxygen Delivery Method Room Air MDM - Recheck/Abnormal Lab/Rx Lab Data 05/26/23 18:22 05/26/23 18:22 Labs: Lab Results 05/26/23 Range/Units 18:22 WBC 11.2 H (4.5-11.0) X10^3/uL RBC 4.07 (4.0-5.2) X10^6/uL Hgb 11.4 L (12.0-16.0) g/dL Hct 34.8 L (36-46) % MCV 85.5 (80-100) fL MCH 28.1 (26-34) PG MCHC 32.9 (30-36) % RDW 16.5 H (11.6-14.8) % Plt Count 239 (150-400) X10^3/uL Neut % (Auto) 94.2 H D (50-75) % Lymph % (Auto) 3.6 L (25-40) % [place] % (Auto) 1.3 L (3-14) % Eos % (Auto) 0.2 L (2-4) % Baso % (Auto) 0.7 (0-2) % Neut # (Auto) 01588 H (2348-7920) /uL Lymph # (Auto) 400 L (4975-0909) /uL [place] # (Auto) 100 (0-900) /uL Eos # (Auto) 0 (0-450) /uL Baso # (Auto) 100 (0-100) /uL PT 10.7 (9.4-12.5) SECONDS INR 0.9 (0.9-1.3) Sodium 134 L (137-145) mmol/L Potassium 4.5 (3.4-5.1) mmol/L Chloride 103 (98-107) mmol/L Carbon Dioxide 24 (22-32) mmol/L BUN 41 H (7-17) mg/dL Creatinine 1.18 H (0.52-1.04) mg/dL Estimated GFR 46 L (>60) mL/min BUN/Creatinine Ratio 34.7 H (6-22) Glucose 198 H D (80-110) mg/dL Calcium 9.6 (8.4-10.2) mg/dL Total Bilirubin 0.5 (0.2-1.3) mg/dL AST 28 (14-36) IU/L ALT 31 (<35) IU/L Alkaline Phosphatase 75 (38-126) U/L Total Protein 9.3 H (6.3-8.2) g/dL Albumin 4.5 (3.5-5.0) g/dL Globulin 4.8 H (1.7-4.1) g/dL Albumin/Globulin Ratio 0.9 L (1.0-2.8) Lipase 155 (23-300) U/L MDM Narrative Medical decision making narrative: Patient here today for general platelet check. States that she has noticed bruising over her limbs that is unusual and feels somewhat nauseous. She was concerned that she may be on too many steroids. Laboratory work shows patient's platelets are well within normal limits (239, up from 191) and coags are normal today. Patient was longstanding history of steroid use and I do not feel comfortable decreasing her steroids at this time as it may be to abrupt a change for this patient. Patient does not currently follow with a Heme-Onc doctor as her previous [employer] w[employer] consultant retired. She was given a referral to [facility] and counseled on the importance of follow up. Discharge Plan Departure Patient Disposition: Home Clinical Impression: Fatigue Instructions: DI for Immune Thrombocytopenic Purpura Activity Restrictions/Additional Instructions: Follow up with Heme-Onc. I do not know the cause of your symptoms, but your platelets and blood counts today are normal. Prescriptions: No Action polyethylene glycol 3350 [Miralax] 17 GM powder in packet 17 gm PO BEDTIME Qty: 0 lorazepam 0.5 mg tablet 0.5 mg PO BEDTIME Qty: 30 0RF Rx Instructions: take by mouth once daily at bedtime estradiol 0.01 % (0.1 mg/gram) cream 2 g vaginal 2XW Patient Comments: takes sundays and wednesdays diltiazem HCl 30 mg tablet 30 mg PO BID vitamin B complex Tablet 1 tab PO DAILY cholecalciferol (vitamin D3) [Vitamin D3] 25 mcg (1,000 unit) Capsule 1 mcg PO DAILY Adults Multivitamin 18 mg iron-400 mcg-25 mcg Tablet 1 tab PO DAILY melatonin 3 mg Capsule 3 mg PO BEDTIME prednisone 20 mg tablet See Rx Instructions .ROUTE .COMPLEX Qty: 67 0RF Rx Instructions: take 40 mg daily for 1 week, 30 mg daily for 1 week, then 20 mg daily for 6 weeks. pantoprazole 20 mg tablet,delayed release (DR/EC) 20 mg PO DAILY Qty: 30 0RF Referrals: Jayson Machado MD [Primary Care Provider] - Silvano Yanez MD [Physician] - Stand Alone Forms: Patient Portal/API
== END 2023-05-26 20:05 | disposition home or self-care (01) ==
PROVIDERS: Emergency Provider Emergency Medicine; Family Provider Physician Assistant; PCP Family Medicine
DX: R53.83 Other fatigue (principal); R79.89 Other specified abnormal findings of blood chemistry
CPT/HCPCS: 36415; 80053; 83690; 85025; 85610; 99283

== ENCOUNTER → 2023-05-27 10:51 | Outpatient (CLI) | payer MEDICARE, OTHER, SELFPAY ==
[2023-05-18 13:38] VITALS: BMI 20.9
== END ==
LOC: WC 10:53
PROVIDERS: Family Provider Physician Assistant; PCP Family Medicine; Visit Provider Surgery
DX: S81.802A Unspecified open wound, left lower leg, initial encounter (principal); L98.8 Other specified disorders of the skin and subcutaneous tissue; R23.3 Spontaneous ecchymoses; R60.0 Localized edema; I87.2 Venous insufficiency (chronic) (peripheral); Z79.01 Long term (current) use of anticoagulants; I73.81 Erythromelalgia; D69.3 Immune thrombocytopenic purpura
CPT/HCPCS: 15271; Q4196

== ENCOUNTER → 2023-06-03 10:40 | Outpatient (CLI) | payer MEDICARE, OTHER, SELFPAY ==
[2023-05-18 13:38] VITALS: BMI 20.9
== END ==
LOC: WC 10:45
PROVIDERS: Family Provider Physician Assistant; PCP Family Medicine; Visit Provider Surgery
DX: S81.802A Unspecified open wound, left lower leg, initial encounter (principal); L98.8 Other specified disorders of the skin and subcutaneous tissue; I87.2 Venous insufficiency (chronic) (peripheral); R60.0 Localized edema; R23.3 Spontaneous ecchymoses; D69.3 Immune thrombocytopenic purpura; I73.81 Erythromelalgia; Z92.25 Personal history of immunosuppression therapy; Z79.01 Long term (current) use of anticoagulants
CPT/HCPCS: 15271; 99212; 99213; Q4196

== ENCOUNTER 2023-06-07 09:58 | Emergency (ER) | payer MEDICARE, OTHER, SELFPAY ==
[2023-05-18 13:38] VITALS: BMI 20.9
[2023-06-07] VITALS (13 sets, daily range): BP systolic 125–181; BP diastolic 73–88; PULSE 64–101; RESP 12–52; TEMP 36.3–36.7; O2SAT 95–100; BMI 18.3
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
--- NOTE | 2023-06-07 10:48 | DI.RAD.S_ITS ---
PROCEDURE: XR CHEST 1V INDICATIONS: SOB TECHNIQUE: One view of the chest was acquired. COMPARISON: [facility], CR, XR CHEST 1 VIEW, 05/30/2023, 23:01. [facility], CR, XR CHEST 1 VIEW, 02/14/2023, 19:23. [facility], CR, XR CHEST 1 VIEW, 02/03/2023, 18:44. [facility], CR, XR CHEST 1V, 11/29/2022, 15:29. FINDINGS: Surgical changes and devices: None. Lungs and pleura: On this semiupright portable chest examination, no large pneumothorax or large pleural effusions are seen. No focal infiltrates are seen. Low lung volumes are noted. This causes a crowded appearance to the lung markings and limits evaluation. Mediastinum: The cardiac contours are within normal limits. The aorta demonstrates calcification and tortuosity. Bones and chest wall: S-shaped scoliotic curvature is seen. Age-appropriate bony degenerative changes are seen. No suspicious bony lesions. Overlying soft tissues appear unremarkable. IMPRESSION: Low lung volumes, without an acute abnormality seen by plain film. Dictated by: Sam Paul M.D. on 06/07/2023 at 10:08 Approved by: Sam Paul M.D. on 06/07/2023 at 10:09
[2023-06-07 10:51] LABS: Add Manual Diff / Slide Review NO; Basophils Absolute Auto 100 /uL (0-100); Basophils Percent Auto 1.5 % (0-2); Eosinophils Absolute Auto 100 /uL (0-450); Eosinophils Percent Auto 0.7 % (2-4); Hematocrit 37.3 % (36-46); Hemoglobin 12.4 g/dL (12.0-16.0); Lymphocytes Absolute Auto 1700 /uL (1100-4500); Lymphocytes Percent Auto 18.9 % (25-40); Mean Corpuscular HGB Conc 33.1 % (30-36); Mean Corpuscular Hemoglobin 28.2 PG (26-34); Mean Corpuscular Volume 85.1 fL (80-100); Monocytes Absolute Auto 800 /uL (0-900); Monocytes Percent Auto 8.4 % (3-14); Neutrophils Absolute Auto 6500 /uL (1500-7000); Neutrophils Percent Auto 70.5 % (50-75); Platelet Count 116 X10^3/uL (150-400); Red Blood Cell Count 4.38 X10^6/uL (4.0-5.2); Red Cell Distribution Width 15.9 % (11.6-14.8); White Blood Cell Count 9.1 X10^3/uL (4.5-11.0)
[2023-06-07 11:01] LABS: Alanine Aminotransferase 30 IU/L (<35); Albumin 4.2 g/dL (3.5-5.0); Albumin Globulin Ratio 1.1 (1.0-2.8); Alkaline Phosphatase 66 U/L (38-126); Aspartate Aminotransferase 24 IU/L (14-36); BUN Creatinine Ratio 24.5 (6-22); Blood Urea Nitrogen 23 mg/dL (7-17); Calcium 9.2 mg/dL (8.4-10.2); Carbon Dioxide 26 mmol/L (22-32); Chloride 99 mmol/L (98-107); Creatine Kinase 32 U/L (30-135); Estimated Glomerular Filt Rate > 60 mL/min (>60); Globulin 3.7 g/dL (1.7-4.1); Glucose 95 mg/dL (80-110); HEMOLYSIS < 15 (0-50); Lipase 126 U/L (23-300); Potassium 3.7 mmol/L (3.4-5.1); Sodium 129 mmol/L (137-145); Total Protein 7.9 g/dL (6.3-8.2)
[2023-06-07] MEDS: ONDANSETRON 4 MG/2 ML INJ IV (11:04)
[2023-06-07] MEDS: PANTOPRAZOLE 40 MG VIAL IV (11:04)
[2023-06-07 11:12] LABS: Troponin I 0.013 ng/mL (0.01-0.034)
[2023-06-07] MEDS: SODIUM CHLORIDE 0.9% 1,000 ML 500 ML IV (11:50)
[2023-06-07] MEDS: ACETAMINOPHEN 325 MG TABLET 650 MG PO (12:22)
[2023-06-07 13:22] LABS: Creatine Kinase 30 U/L (30-135)
[2023-06-07 13:34] LABS: Troponin I < 0.012 ng/mL (0.01-0.034)
[2023-06-07 13:54] LABS: Urine Volume 10mL (spun)
[2023-06-07 13:55] LABS: Bacteria Urine None Seen; Culture Indicated Urine Cult Not Indicated; RBC Urine 0-1/HPF (0-5/HPF); Squamous Epithelial Cell Urine None Seen (0-5/HPF); WBC Urine None Seen (0-5/HPF)
== END 2023-06-07 14:58 | disposition home or self-care (01) ==
PROVIDERS: Emergency Provider Emergency Medicine; Family Provider Physician Assistant; PCP Family Medicine
DX: R53.83 Other fatigue (principal); R07.9 Chest pain, unspecified; R10.13 Epigastric pain; R06.02 Shortness of breath; R11.0 Nausea
CPT/HCPCS: 36415; 51798; 71045; 80053; 81003; 81015; 82550; 83690; 84484; 85025; 93005; 96374; 96375; 99284; C9113; J2405

== ENCOUNTER → 2023-06-10 10:06 | Outpatient (CLI) | payer MEDICARE, OTHER, SELFPAY ==
[2023-05-18 13:38] VITALS: BMI 20.9
== END ==
PROVIDERS: Family Provider Physician Assistant; PCP Family Medicine; Visit Provider Surgery
DX: S81.802A Unspecified open wound, left lower leg, initial encounter (principal); I87.2 Venous insufficiency (chronic) (peripheral); R23.3 Spontaneous ecchymoses; R60.0 Localized edema; D69.3 Immune thrombocytopenic purpura; I73.81 Erythromelalgia; Z92.25 Personal history of immunosuppression therapy
CPT/HCPCS: 11042

== ENCOUNTER → 2023-06-16 12:07 | Outpatient (CLI) | payer MEDICARE, OTHER, SELFPAY ==
[2023-05-18 13:38] VITALS: BMI 20.9
== END ==
LOC: WC 12:08
PROVIDERS: Family Provider Physician Assistant; PCP Family Medicine; Visit Provider Surgery
DX: I87.2 Venous insufficiency (chronic) (peripheral) (principal); S81.802A Unspecified open wound, left lower leg, initial encounter; R60.0 Localized edema; R23.3 Spontaneous ecchymoses; D69.3 Immune thrombocytopenic purpura; I73.81 Erythromelalgia; Z92.25 Personal history of immunosuppression therapy; Z79.01 Long term (current) use of anticoagulants
CPT/HCPCS: 11042

== ENCOUNTER 2023-06-18 06:59 | Emergency (ER) | payer MEDICARE, OTHER, SELFPAY ==
[2023-05-18 13:38] VITALS: BMI 20.9
--- NOTE | 2023-06-18 06:59 | DI.CT.S_ITS ---
PROCEDURE: CT HEAD/BRAIN WO CON INDICATIONS: GLF/HEADACHE/HEAD INJURY TECHNIQUE: Noncontrast 4.5 mm thick angled axial sections acquired from the foramen magnum to the vertex, with coronal and sagittal reformats. For radiation dose reduction, the following was used: automated exposure control, adjustment of mA and/or kV according to patient size. COMPARISON: [facility], CT, CT HEAD/BRAIN WO CON, 05/25/2023, 10:37. FINDINGS: Image quality: Diagnostic. CSF spaces: Basal cisterns are patent. No extra-axial fluid collections. The ventricles are symmetric in size and shape. Brain: No intracranial bleeds or masses. There is cerebral volume loss for age, with resultant ventricular and sulcal prominence. There are moderate periventricular and deep white matter chronic small vessel ischemic changes. There is intracranial internal carotid artery atherosclerosis. Skull and face: Calvarium and visualized facial bones appear intact, without suspicious lesions. Sinuses: Visualized sinuses and mastoids are clear. IMPRESSION: No acute intracranial pathology. Moderate small vessel ischemic change. Dictated by: Manolo Li M.D. on 06/18/2023 at 8:05 Approved by: Manolo Li M.D. on 06/18/2023 at 8:06
--- NOTE | 2023-06-18 07:02 | DI.RAD.S_ITS ---
PROCEDURE: XR CHEST 1V INDICATIONS: NEAR SYNCOPE TECHNIQUE: One view of the chest was acquired. COMPARISON: [facility], CR, XR CHEST 1 VIEW, 03/13/2022, 7:53. [facility], CR, CHEST 1 VIEW, 08/27/2013, 12:44. [facility], CT, CT ANGIO CHEST PE, 08/14/2021, 18:13. [facility], CR, XR CHEST 1 VIEW, 06/13/2023, 14:15. [facility], CT, CT CERVICAL SPINE WO CON, 06/18/2023, 7:51. [facility], CR, XR CHEST 1V, 06/07/2023, 10:52. FINDINGS: Surgical changes and devices: None. Lungs and pleura: Right upper lobe scars and atelectasis. Chronic right hemidiaphragm elevation. No pleural effusions or pneumothorax. Mediastinum: Mediastinal contours appear normal. Heart size is normal. Bones and chest wall: Severe scoliosis. No suspicious bony lesions. Overlying soft tissues appear unremarkable. IMPRESSION: 1. No acute cardiopulmonary abnormality is seen. 2. Right apical scarring. 3. Chronic right hemidiaphragm elevation. Dictated by: Theresa Ochoa M.D. on 06/18/2023 at 8:03 Approved by: Theresa Ochoa M.D. on 06/18/2023 at 8:07
[2023-06-18 07:03] VITALS: BP 148/81; PULSE 58; RESP 18; TEMP 36.6; O2SAT 98; BMI 18.3
[2023-06-18 07:21] VITALS: PULSE 58; O2SAT 98
--- NOTE | 2023-06-18 07:26 | ED_ITS ---
HPI - Fall General Chief Complaint: Fall Stated Complaint: GLF, headache Time Seen by Provider: 06/18/23 06:59 Source: patient, EMS, RN notes reviewed and old records reviewed Mode of arrival: EMS Limitations: no limitations History of Present Illness HPI Narrative: 82-year-old female with history of ITP and chronic steroids and Nplate (Romiplostin), hypertension atrial fibrillation who presents after getting out of bed to go to the bathroom feeling dizzy fell she did hit her head. No anticoagulants. Also reports skin tear on anterior left skinner. Patient states she had gotten up out of bed and into the bathroom started to feel dizzy went to grab the wall and missed and fell. She did hit her head. Her main concern is she is alert skin tear on her left leg. She does follow with wound care saw them earlier this week and goes once weekly. She denies any neck pain. She does have some for pain on the left. Denies any abdominal back or flank pain. No nausea or vomiting no other GI or urinary symptoms. Does not complain dizziness currently. No new weakness of extremities. Patient states she has not currently on any anticoagulants. Does have several allergies to antibiotics Keppra latex and iodine. No tobacco, alcohol or recreational drugs. She does live at home with her . She follows along with Cardiology and Hematology. Dr. Machado is her primary care physician. She states her tetanus is up-to-date. Related Data Home Medications Medication Instructions Recorded Confirmed polyethylene glycol 3350 17 gram 17 gm PO BEDTIME Constipation ##0 05/26/17 05/18/23 oral powder packet (Miralax) cholecalciferol (vitamin D3) 25 1 mcg PO DAILY 05/18/23 05/18/23 mcg (1,000 unit) capsule (Vitamin D3) diltiazem HCl 30 mg tablet 30 mg PO BID 05/18/23 05/18/23 estradiol 0.01% (0.1 mg/gram) 2 g vaginal 2XW 05/18/23 05/18/23 vaginal cream melatonin 3 mg capsule 3 mg PO BEDTIME 05/18/23 05/18/23 multivit with minerals-iron 18 1 tab PO DAILY 05/18/23 05/18/23 mg-folic ac 400 mcg-vit K 25 mcg tablet (Adults Multivitamin) vitamin B complex 1 tab PO DAILY 05/18/23 05/18/23 Previous Rx's Medication Instructions Recorded lorazepam 0.5 mg tablet 0.5 mg PO BEDTIME #30 tabs 04/05/22 pantoprazole 20 mg tablet,delayed 20 mg PO DAILY #30 tabs 05/23/23 release prednisone 20 mg tablet See Rx Instructions .Route 05/23/23 .COMPLEX #67 tabs oxycodone 5 mg tablet 5 mg PO Q6H PRN pain #10 tabs 06/18/23 Allergies Allergy/AdvReac Type Severity Reaction Status Date / Time latex Allergy Mild LOCAL RASH Verified 06/18/23 07:09 Penicillins Allergy Mild CHILDHOOD Verified 06/18/23 07:09 Sulfa (Sulfonamide Allergy Mild SOMETHING Verified 06/18/23 07:09 Antibiotics) TO DO WITH BLADDER OR KIDNEY'S?? 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 HEAD: Patient has small area of ecchymosis on the forehead, no raccoon/Hester sign. NECK: Nontender, painless range of motion, trachea midline Negative Nexus criteria, no midline line tenderness, distracting injury, altered mental status, neuro deficit, recent EtOH. EYES: PERRLA, EOMI ENT: External inspection normal, trachea is midline, Nares are clear, no septal hematoma, no dental or oral injury, airway is normal and with normal occlusion, No bony tenderness RESP: Chest is nontender and has symmetric movement, no ecchymosis, breath sounds are normal no crackles, wheezes or rales CVS: Heart sounds are normal, no murmur noted, No JVD. ABG/GI: Nontender, soft, normal bowel sounds, no distention, no organomegaly, pelvic rock is negative NEURO: Oriented AOx3, neuro is grossly intact, sensation and motor is normal all 4 extremities moving, cranial nerves II through XII are intact, GCS is 15 PSYCH: Normal mood and affect SKIN: Patient has multiple areas of ecchymosis in various stages of healing her extremities, she has a large skin tear on left anterior skinner with an avulsion of the skin, warm and dry, no crepitus and without decubitus BACK: No CVA tenderness, no vertebral tenderness, no step-off's, no crepitus EXT: Atraumatic, hips are nontender, no pedal edema, normal color and temperature, normal range of motion of extremities, cap refill less than 2 seconds all 4 extremities. 2+ radial pulses bilaterally. Patient has some mild swelling of the ankles bilaterally. Initial Vital Signs Initial Vital Signs: Vital Signs Temperature 97.9 F 06/18/23 07:03 Pulse Rate 58 L 06/18/23 07:03 Respiratory Rate 18 06/18/23 07:03 Blood Pressure 148/81 H 06/18/23 07:03 Pulse Oximetry 98 06/18/23 07:03 Oxygen Delivery Method Room Air 06/18/23 07:03 Course Orders Ordered: Discontinued Medications Bacitracin (Bacitracin Oint 0.9 Gm Pckt) 1 applic TOP NOW ONE Stop: 06/18/23 08:19 Last Admin: 06/18/23 09:06 Dose: 1 applic Documented By: REBECCA Diphtheria/Tetanus/Acell Pertussis (Tet,Diph,Pertuss(Acell),Vac/Pf 0.5 Ml Syringe) 0.5 ml IM .ONCE ONE Stop: 06/18/23 07:04 Last Admin: 06/18/23 07:28 Dose: Not Given Documented By: REBECCA Sodium Chloride (Normal Saline 0.9%) 1,000 mls @ 1,000 mls/hr IV BOLUS ONE Stop: 06/18/23 08:01 Last Infusion: 06/18/23 09:04 Dose: Infused Documented By: Admin: 06/18/23 07:42 Dose: 1,000 mls/hr Documented By: REBECCA Oxycodone HCl (Oxycodone 5 Mg/5 Ml Oral Solution) 5 mg PO NOW ONE Stop: 06/18/23 07:04 Last Admin: 06/18/23 07:42 Dose: 5 mg Documented By: REBECCA Vital Signs Vital signs: Vital Signs - 8 hr 06/18/23 07:03 06/18/23 07:21 06/18/23 07:30 Temperature 97.9 F Pulse Rate 58 L 58 L 55 L Respiratory Rate 18 Blood Pressure 148/81 H Pulse Oximetry 98 98 97 Oxygen Delivery Method Room Air 06/18/23 07:30 06/18/23 08:02 Temperature Pulse Rate 53 L Respiratory Rate Blood Pressure 150/69 H Pulse Oximetry 98 Oxygen Delivery Method MDM - Fall Lab Data 06/18/23 07:25 06/18/23 07:25 Labs: Lab Results 06/18/23 Range/Units 07:25 WBC 11.7 H (4.5-11.0) X10^3/uL RBC 4.01 (4.0-5.2) X10^6/uL Hgb 11.3 L (12.0-16.0) g/dL Hct 34.7 L (36-46) % MCV 86.4 (80-100) fL MCH 28.2 (26-34) PG MCHC 32.6 (30-36) % RDW 16.5 H (11.6-14.8) % Plt Count 213 (150-400) X10^3/uL Neut % (Auto) 65.4 (50-75) % Lymph % (Auto) 22.1 L (25-40) % [place] % (Auto) 10.8 (3-14) % Eos % (Auto) 1.4 L (2-4) % Baso % (Auto) 0.3 (0-2) % Neut # (Auto) 7700 H (5699-5673) /uL Lymph # (Auto) 2600 (0436-4166) /uL [place] # (Auto) 1300 H (0-900) /uL Eos # (Auto) 200 (0-450) /uL Baso # (Auto) 0 (0-100) /uL Sodium 136 L (137-145) mmol/L Potassium 3.9 (3.4-5.1) mmol/L Chloride 105 (98-107) mmol/L Carbon Dioxide 30 (22-32) mmol/L BUN 29 H (7-17) mg/dL Creatinine 0.92 (0.52-1.04) mg/dL Estimated GFR > 60 (>60) mL/min BUN/Creatinine Ratio 31.5 H (6-22) Glucose 71 L (80-110) mg/dL Calcium 9.0 (8.4-10.2) mg/dL Total Bilirubin 0.7 (0.2-1.3) mg/dL AST 26 (14-36) IU/L ALT 20 (<35) IU/L Alkaline Phosphatase 55 (38-126) U/L Total Creatine Kinase 33 (30-135) U/L Troponin I < 0.012 (0.01-0.034) ng/mL Total Protein 7.0 (6.3-8.2) g/dL Albumin 3.8 (3.5-5.0) g/dL Globulin 3.2 (1.7-4.1) g/dL Albumin/Globulin Ratio 1.2 (1.0-2.8) Imaging Data CT scan - head: Radiologist's Impression: [address] [address] [address] Scan Report Signed Patient: Priscilla Mahan MR#: [id number] : 1940 Acct:[id number] Age/Sex: 82 / F Date of Service: 06/18/23 Loc: ED Accession Number: [id number] Procedure: CT head/brain wo con Ordering Provider: Amara Rivera MD PROCEDURE: CT HEAD/BRAIN WO CON INDICATIONS: GLF/HEADACHE/HEAD INJURY TECHNIQUE: Noncontrast 4.5 mm thick angled axial sections acquired from the foramen magnum to the vertex, with coronal and sagittal reformats. For radiation dose reduction, the following was used: automated exposure control, adjustment of mA and/or kV according to patient size. COMPARISON: [facility], CT, CT HEAD/BRAIN WO CON, 05/25/2023, 10:37. FINDINGS: Image quality: Diagnostic. CSF spaces: Basal cisterns are patent. No extra-axial fluid collections. The ventricles are symmetric in size and shape. Brain: No intracranial bleeds or masses. There is cerebral volume loss for age, with resultant ventricular and sulcal prominence. There are moderate periventricular and deep white matter chronic small vessel ischemic changes. There is intracranial internal carotid artery atherosclerosis. Skull and face: Calvarium and visualized facial bones appear intact, without suspicious lesions. Sinuses: Visualized sinuses and mastoids are clear. IMPRESSION: No acute intracranial pathology. Moderate small vessel ischemic change. Dictated by: Manolo Li M.D. on 06/18/2023 at 8:05 Approved by: Manolo Li M.D. on 06/18/2023 at 8:06 CT - cervical spine: Radiologist's Impression: [place] [address] CT Scan Report Signed Patient: Priscilla Mahan MR#: [id number] : 1940 Acct:[id number] Age/Sex: 82 / F Date of Service: 06/18/23 Loc: ED Accession Number: [id number] Procedure: CT cervical spine wo con Ordering Provider: Amara Rivera MD PROCEDURE: CT CERVICAL SPINE WO CON INDICATIONS: GLF/HEADACHE/HEAD INJURY TECHNIQUE: Noncontrast 3 mm thick sections acquired from the skull base to the T4 level. Sagittal and coronal reformats were then constructed. For radiation dose reduction, the following was used: automated exposure control, adjustment of mA and/or kV according to patient size. COMPARISON: [facility], CT, CT CERVICAL SPINE WO CON, 05/25/2023, 10:37. FINDINGS: Image quality: Excellent. Bones: No fractures or dislocations. Visualized superior ribs are intact. Cervical spondylosis. Multilevel disc height loss, uncovertebral joint osteophytosis, facet arthropathy, and multilevel left bony foraminal narrowing. Soft tissues: Prevertebral soft tissues are normal in thickness. No paravertebral hematomas. No apical pneumothoraces. IMPRESSION: 1. No acute cervical fracture or dislocation. 2. Cervical spondylosis. Dictated by: Manolo Li M.D. on 06/18/2023 at 8:03 Approved by: Manolo Li M.D. on 06/18/2023 at 8:05 Chest x-ray: Radiologist's Impression: Manuel Mahanwally Carballo?(Mayur)??82??F??1940 ? Allergy/Adv: latex, Penicillins, Sulfa (Sulfonamide Antibiotics), azithromycin, iodine (More??) Close Cervical Spine CT (Signed) Manolo Li - 06/18/23 Chest X-Ray (Signed) Theresa Ochoa - 06/18/[address] (Signed) Manolo Li - 06/18/23 Chest X-Ray (Signed) BeverlyEli kuhne - 06/07/[address] (Signed) Beverly,Sam - 05/25/[address] (Signed) [place],Sam - 05/25/[address] (Signed) Nicolás Blake - 05/18/23 Abdomen/Pelvis CTA (Signed) Nicolás Blake - 05/18/[address] (Signed) Beverly,Sam - 03/18/[address] (Signed) [place],Sam - 03/18/23 Shoulder X-Ray (Signed) Bo Burnseer - 03/18/23 Ribs X-Ray (Signed) Bo Burnseer - 03/18/23 Chest X-Ray (Signed) Jos Tyler - 11/29/22 Telemetry Strips 04/02/22 Renal Ultrasound (Signed) Khris Viramontes - 04/01/[address] (Signed) [place],Sam - 04/01/[address] (Signed) [place],Sam - 04/01/22 Chest X-Ray (Signed) Manolo Li - 04/01/[address] (Signed) Rhiannon Burns - 03/14/22 Chest X-Ray (Signed) Jose Antony - 03/14/[address] (Signed) Jayy Stevens - 02/14/22 Chest/Abdomen/Pelvis CTA (Signed) Carlo Mak - 11/23/21 Chest X-Ray (Signed) Call,Carlo - 11/23/21 Wrist X-Ray (Signed) [place],Sam - 11/03/[address] (Signed) Hanny Root - 08/15/21 Vascular Ultrasound (Signed) Jose Durham - 08/15/21 Chest X-Ray (Signed) Jose Durham - 08/14/21 Abdomen X-Ray (Signed) DustinsiaPatsy - 07/02/[address] (Signed) Ted Ramos - 06/18/20 Chest X-Ray (Signed) Hanny Root - 05/17/20 Abdomen/Pelvis CT (Signed) Renay Ochoa - 05/17/20 Telemetry Strips 04/24/[address] (Signed) Rahul Santoyo - 04/24/20 Chest X-Ray (Signed) Marky Renteria - 04/24/[address] (Signed) Bismark Lee - 04/21/20 Chest/Abdomen/Pelvis CT (Signed) Bismark Lee - 03/03/20 Telemetry Strips 02/26/20 Pelvis Ultrasound (Signed) Marky Renteria - 02/10/20 Hip X-Ray (Signed) Bismark Lee - 08/17/19 Head/Neck CTA (Signed) Sam Paul - 03/15/19 Echocardiogram Ultrasound (Signed) Kishore Chadwick - 12/17/18 Carotid Doppler Study (Signed) Hanny Root - 12/17/18 Tibia/Fibula X-Ray (Signed) [place] Rolle - 10/17/18 Ankle X-Ray (Signed) [place] Rolle - 10/17/18 DEXA Result 08/11/18 Outside DI 07/22/18 Launch?[address] [address] XRay Report Signed Patient: Priscilla Mahan MR#: [id number] : 1940 Acct:[id number] Age/Sex: 82 / F Date of Service: 06/18/23 Loc: ED Accession Number: [id number] Procedure: XR chest 1V Ordering Provider: Amara Rivera MD PROCEDURE: XR CHEST 1V INDICATIONS: NEAR SYNCOPE TECHNIQUE: One view of the chest was acquired. COMPARISON: [facility], CR, XR CHEST 1 VIEW, 03/13/2022, 7:53. [facility], CR, CHEST 1 VIEW, 08/27/2013, 12:44. [facility], CT, CT ANGIO CHEST PE, 08/14/2021, 18:13. [facility], CR, XR CHEST 1 VIEW, 06/13/2023, 14:15. [facility], CT, CT CERVICAL SPINE WO CON, 06/18/2023, 7:51. [facility], CR, XR CHEST 1V, 06/07/2023, 10:52. FINDINGS: Surgical changes and devices: None. Lungs and pleura: Right upper lobe scars and atelectasis. Chronic right hemidiaphragm elevation. No pleural effusions or pneumothorax. Mediastinum: Mediastinal contours appear normal. Heart size is normal. Bones and chest wall: Severe scoliosis. No suspicious bony lesions. Overlying soft tissues appear unremarkable. IMPRESSION: 1. No acute cardiopulmonary abnormality is seen. 2. Right apical scarring. 3. Chronic right hemidiaphragm elevation. Dictated by: Theresa Ochoa M.D. on 06/18/2023 at 8:03 Approved by: Theresa Ochoa M.D. on 06/18/2023 at 8:07 ECG Data Attestation: I personally reviewed and interpreted this ECG as follows: Prior ECG tracings: available for review Interpretation: Sinus bradycardia rate of 58 SC 146 QRS 82 QTC of 406, no acute ST elevation or depression. Nonspecific change in comparison to prior from 06/07/23. MDM Narrative Medical decision making narrative: 82-year-old female with known ITP who had gotten up to go to the bathroom this morning felt very dizzy and fell hitting her head as well as getting a large skin tear and complaining of some left rib pain. Labs white count of 11.7 hemoglobin of 11, glucose of 213. Sodium 136 potassium 3 9 chloride 105 CO2 of 30 BUN 29 creatinine 0.92 glucose 71, troponins less than 0.012- LFT. EKG shows no acute intracranial bleed, moderate small-vessel ischemic changes. Bones intact. Sinus bradycardia with some nonspecific change Head CT CT C-spine no fractures or dislocation cervical spondylosis multi disc height loss, uncovertebral joint osteophytosis facet arthropathy at multiple left bony foraminal narrowing. Chest x-ray shows no acute cardiopulmonary abnormality right apical scarring chronic right diaphragm elevation severe scoliosis. EKG shows no acute change. Patient's wound was cleansed and skin placed over with bandage. Patient does follow with in the care weekly she is already seen them this week but should see them on Friday. Patient received fluids, tetanus was not updated in the department she states she believes it is up-to-date. No notes it health history EMR. Dose of oral pain medication. Discussed with patient she does have a walker at home she was not using it this morning. She does have home health care coming to the house. She does not wish to talk about the [employer]GER with other resources. Discharge Plan Departure Patient Disposition: Home Clinical Impression: Noninfected skin tear of left leg, Fall, Contusion of forehead Activity Restrictions/Additional Instructions: Continue to follow up with wound care, share your new skin tear with them they will want to follow along with this will take some time to heal. You may take pain medication as prescribed you can take Tylenol up to a 1000 mg every 6 hours and/or narcotic pain medication 1 tablet every 6 hours as needed. This medication can make you sleepy do not drive, perform hazardous activities or make any major decisions while taking it. This medication will make you constipated please take a stool softener once to twice daily until stools are soft and regular. [facility] [place]. Wound Care: Keep wound(s) clean and dry. Wash daily with soap and water only. You may use a topical triple antibiotic ointment twice daily to the affected area. If wound condition worsens (increased/expanding redness, developing fluid blisters, or worsening pain), either contact your doctor for an urgent re- assessment , or return to the Emergency Department. Return to the Emergency Department for any new or worsening symptoms. Return to the ED, urgent care, or vist a primary care doctor for removal or suture or tanya. Return if fever greater than 100.4 Fahrenheit, increased swelling, increasing pain or worsening symptoms such as increased discharge or spreading redness. Use warm compresses 3 times daily for 20 minutes to the affected area. Severe headaches, recurrent dizziness, new chest pain or shortness of breath, persistent vomiting, new numbness tingling or weakness or other new or concerning changes. Prescriptions: New oxycodone 5 mg tablet 5 mg PO Q6H PRN (Reason: pain) Qty: 10 0RF No Action polyethylene glycol 3350 [Miralax] 17 GM powder in packet 17 gm PO BEDTIME Qty: 0 lorazepam 0.5 mg tablet 0.5 mg PO BEDTIME Qty: 30 0RF Rx Instructions: take by mouth once daily at bedtime estradiol 0.01 % (0.1 mg/gram) cream 2 g vaginal 2XW Patient Comments: takes sundays and wednesdays diltiazem HCl 30 mg tablet 30 mg PO BID vitamin B complex Tablet 1 tab PO DAILY cholecalciferol (vitamin D3) [Vitamin D3] 25 mcg (1,000 unit) Capsule 1 mcg PO DAILY Adults Multivitamin 18 mg iron-400 mcg-25 mcg Tablet 1 tab PO DAILY melatonin 3 mg Capsule 3 mg PO BEDTIME prednisone 20 mg tablet See Rx Instructions .ROUTE .COMPLEX Qty: 67 0RF Rx Instructions: take 40 mg daily for 1 week, 30 mg daily for 1 week, then 20 mg daily for 6 weeks. pantoprazole 20 mg tablet,delayed release (DR/EC) 20 mg PO DAILY Qty: 30 0RF Referrals: Jayson Machado MD [Primary Care Provider] - Stand Alone Forms: Patient Portal/API
[2023-06-18 07:30] VITALS: BP 150/69; PULSE 55; O2SAT 97
[2023-06-18 07:32] LABS: Add Manual Diff / Slide Review NO; Basophils Absolute Auto 0 /uL (0-100); Basophils Percent Auto 0.3 % (0-2); Eosinophils Absolute Auto 200 /uL (0-450); Eosinophils Percent Auto 1.4 % (2-4); Hematocrit 34.7 % (36-46); Hemoglobin 11.3 g/dL (12.0-16.0); Lymphocytes Absolute Auto 2600 /uL (1100-4500); Lymphocytes Percent Auto 22.1 % (25-40); Mean Corpuscular HGB Conc 32.6 % (30-36); Mean Corpuscular Hemoglobin 28.2 PG (26-34); Mean Corpuscular Volume 86.4 fL (80-100); Monocytes Absolute Auto 1300 /uL (0-900); Monocytes Percent Auto 10.8 % (3-14); Neutrophils Absolute Auto 7700 /uL (1500-7000); Neutrophils Percent Auto 65.4 % (50-75); Platelet Count 213 X10^3/uL (150-400); Red Blood Cell Count 4.01 X10^6/uL (4.0-5.2); Red Cell Distribution Width 16.5 % (11.6-14.8); White Blood Cell Count 11.7 X10^3/uL (4.5-11.0)
[2023-06-18] MEDS: SODIUM CHLORIDE 0.9% 1,000 ML 1000 ML IV (07:42)
[2023-06-18] MEDS: OXYCODONE 5 MG/5 ML ORAL SOLUTION PO (07:42)
[2023-06-18 07:45] LABS: Alanine Aminotransferase 20 IU/L (<35); Albumin 3.8 g/dL (3.5-5.0); Albumin Globulin Ratio 1.2 (1.0-2.8); Alkaline Phosphatase 55 U/L (38-126); Aspartate Aminotransferase 26 IU/L (14-36); BUN Creatinine Ratio 31.5 (6-22); Bilirubin Total 0.7 mg/dL (0.2-1.3); Blood Urea Nitrogen 29 mg/dL (7-17); Carbon Dioxide 30 mmol/L (22-32); Chloride 105 mmol/L (98-107); Creatine Kinase 33 U/L (30-135); Estimated Glomerular Filt Rate > 60 mL/min (>60); Globulin 3.2 g/dL (1.7-4.1); Glucose 71 mg/dL (80-110); HEMOLYSIS 35 (0-50); Potassium 3.9 mmol/L (3.4-5.1); Sodium 136 mmol/L (137-145)
[2023-06-18 07:57] LABS: Troponin I < 0.012 ng/mL (0.01-0.034)
[2023-06-18 08:02] VITALS: PULSE 53; O2SAT 98
--- NOTE | 2023-06-18 08:04 | DI.CT.S_ITS ---
PROCEDURE: CT CERVICAL SPINE WO CON INDICATIONS: GLF/HEADACHE/HEAD INJURY TECHNIQUE: Noncontrast 3 mm thick sections acquired from the skull base to the T4 level. Sagittal and coronal reformats were then constructed. For radiation dose reduction, the following was used: automated exposure control, adjustment of mA and/or kV according to patient size. COMPARISON: [facility], CT, CT CERVICAL SPINE WO CON, 05/25/2023, 10:37. FINDINGS: Image quality: Excellent. Bones: No fractures or dislocations. Visualized superior ribs are intact. Cervical spondylosis. Multilevel disc height loss, uncovertebral joint osteophytosis, facet arthropathy, and multilevel left bony foraminal narrowing. Soft tissues: Prevertebral soft tissues are normal in thickness. No paravertebral hematomas. No apical pneumothoraces. IMPRESSION: 1. No acute cervical fracture or dislocation. 2. Cervical spondylosis. Dictated by: Manolo Li M.D. on 06/18/2023 at 8:03 Approved by: Manolo Li M.D. on 06/18/2023 at 8:05
[2023-06-18 08:30] VITALS: PULSE 84; RESP 16; O2SAT 99
[2023-06-18] MEDS: BACITRACIN OINT 0.9 GM PCKT 1 APPLIC TOP (09:06)
== END 2023-06-18 09:16 | disposition home or self-care (01) ==
PROVIDERS: Emergency Medicine; Emergency Provider Emergency Medicine; Family Provider Physician Assistant; PCP Family Medicine
DX: S81.812A Laceration without foreign body, left lower leg, initial encounter (principal); S00.83XA Contusion of other part of head, initial encounter; R00.1 Bradycardia, unspecified; W06.XXXA Fall from bed, initial encounter; Z79.899 Other long term (current) drug therapy
CPT/HCPCS: 36415; 70450; 71045; 72125; 80053; 82550; 84484; 85025; 93005; 93010; 96360; 99284

== ENCOUNTER → 2023-06-19 11:00 | Outpatient (CLI) | payer MEDICARE, OTHER, SELFPAY ==
[2023-05-18 13:38] VITALS: BMI 20.9
== END ==
LOC: WC 11:02
PROVIDERS: Family Provider Physician Assistant; PCP Family Medicine; Visit Provider Surgery
DX: S81.802A Unspecified open wound, left lower leg, initial encounter (principal); S81.812A Laceration without foreign body, left lower leg, initial encounter; I87.2 Venous insufficiency (chronic) (peripheral); R60.0 Localized edema; R23.3 Spontaneous ecchymoses; M79.662 Pain in left lower leg; D69.3 Immune thrombocytopenic purpura; Z92.25 Personal history of immunosuppression therapy; Z79.01 Long term (current) use of anticoagulants
CPT/HCPCS: 15271; 99213; Q4196

== ENCOUNTER → 2023-06-24 09:38 | Outpatient (CLI) | payer MEDICARE, OTHER, SELFPAY ==
[2023-05-18 13:38] VITALS: BMI 20.9
== END ==
LOC: WC 09:54
PROVIDERS: Family Provider Physician Assistant; PCP Family Medicine; Visit Provider Surgery
DX: S81.802A Unspecified open wound, left lower leg, initial encounter (principal); S81.811A Laceration without foreign body, right lower leg, initial encounter; R23.3 Spontaneous ecchymoses; R60.0 Localized edema; M79.662 Pain in left lower leg
CPT/HCPCS: 99212

== ENCOUNTER → 2023-06-26 09:49 | Outpatient (CLI) | payer MEDICARE, OTHER, SELFPAY ==
[2023-05-18 13:38] VITALS: BMI 20.9
== END ==
PROVIDERS: Family Provider Physician Assistant; PCP Family Medicine; Visit Provider Surgery
DX: S81.802A Unspecified open wound, left lower leg, initial encounter (principal); S81.812A Laceration without foreign body, left lower leg, initial encounter; I87.2 Venous insufficiency (chronic) (peripheral); D69.3 Immune thrombocytopenic purpura; R60.0 Localized edema; Z92.25 Personal history of immunosuppression therapy; R23.3 Spontaneous ecchymoses; Z79.01 Long term (current) use of anticoagulants
CPT/HCPCS: 11042; 11045; 15271; 87070; 87075; 87077; 87186; 87205; 99213; Q4196

== ENCOUNTER → 2023-06-30 09:44 | Outpatient (CLI) | payer MEDICARE, OTHER, SELFPAY ==
[2023-05-18 13:38] VITALS: BMI 20.9
== END ==
PROVIDERS: Family Provider Physician Assistant; PCP Family Medicine; Visit Provider Surgery
DX: S81.811A Laceration without foreign body, right lower leg, initial encounter (principal); M79.81 Nontraumatic hematoma of soft tissue; R23.3 Spontaneous ecchymoses; R60.0 Localized edema
CPT/HCPCS: 99213

== ENCOUNTER 2023-06-30 10:20 | Emergency (ER) | payer MEDICARE, OTHER, SELFPAY ==
[2023-05-18 13:38] VITALS: BMI 20.9
[2023-06-30] VITALS (19 sets, daily range): BP systolic 125–167; BP diastolic 63–96; PULSE 70–94; RESP 16–31; TEMP 36.4; O2SAT 95–99; BMI 18.3
--- NOTE | 2023-06-30 10:43 | DI.RAD.S_ITS ---
PROCEDURE: XR CHEST 1V INDICATIONS: suspected sepsis TECHNIQUE: One view of the chest was acquired. COMPARISON: [facility], CR, XR CHEST 1V, 06/18/2023, 7:03. FINDINGS: Surgical changes and devices: None. Lungs and pleura: Lungs are clear. Elevated right hemidiaphragm, as before. No pleural effusions or pneumothorax. Mediastinum: Mediastinal contours appear normal. Heart size is normal. Bones and chest wall: No suspicious bony lesions. Overlying soft tissues appear unremarkable. IMPRESSION: No acute cardiopulmonary abnormality is seen. Dictated by: Manolo Li M.D. on 06/30/2023 at 11:59 Approved by: Manolo Li M.D. on 06/30/2023 at 12:00
[2023-06-30] MEDS: SODIUM CHLORIDE 0.9% 1,000 ML 1000 ML IV ×3 (11:01→15:37)
--- NOTE | 2023-06-30 11:13 | PC.NURSE ---
Pt came to the ED today because she has been having some difficulty urinating and having some flank and pelvic pain. Pt states that she hasn't urinated or had BM since friday and that she is having cramping pain in her lower abd that she rates as a 7/10. Pt takes tramadol, tylenol and cyclobenzaprine for back pain and spasms that was prescribed by her PCP, Dr Machado. Pt also referred to PT for evaluation. Pt being treated for large wound on her LLE. Pt a&ox4.
[2023-06-30 11:17] LABS: Add Manual Diff / Slide Review NO; Basophils Absolute Auto 200 /uL (0-100); Basophils Percent Auto 1.3 % (0-2); Eosinophils Absolute Auto 100 /uL (0-450); Eosinophils Percent Auto 0.6 % (2-4); Hematocrit 34.6 % (36-46); Hemoglobin 11.6 g/dL (12.0-16.0); Lymphocytes Absolute Auto 2200 /uL (1100-4500); Lymphocytes Percent Auto 15.4 % (25-40); Mean Corpuscular HGB Conc 33.6 % (30-36); Mean Corpuscular Hemoglobin 28.2 PG (26-34); Mean Corpuscular Volume 83.9 fL (80-100); Monocytes Absolute Auto 1300 /uL (0-900); Monocytes Percent Auto 9.3 % (3-14); Neutrophils Absolute Auto 10600 /uL (1500-7000); Neutrophils Percent Auto 73.4 % (50-75); Platelet Count 205 X10^3/uL (150-400); Red Blood Cell Count 4.13 X10^6/uL (4.0-5.2); Red Cell Distribution Width 16.3 % (11.6-14.8); White Blood Cell Count 14.4 X10^3/uL (4.5-11.0)
[2023-06-30 11:27] LABS: Alanine Aminotransferase 13 IU/L (<35); Albumin 3.9 g/dL (3.5-5.0); Albumin Globulin Ratio 1.3 (1.0-2.8); Alkaline Phosphatase 95 U/L (38-126); Aspartate Aminotransferase 21 IU/L (14-36); BUN Creatinine Ratio 16.2 (6-22); Bilirubin Total 0.9 mg/dL (0.2-1.3); Blood Urea Nitrogen 24 mg/dL (7-17); Calcium 8.9 mg/dL (8.4-10.2); Carbon Dioxide 26 mmol/L (22-32); Chloride 96 mmol/L (98-107); Estimated Glomerular Filt Rate 35 mL/min (>60); Glucose 81 mg/dL (80-110); HEMOLYSIS < 15 (0-50); Lactate (Lactic Acid) 1.4 mmol/L (0.7-2.1); Lipase 41 U/L (23-300); Potassium 3.9 mmol/L (3.4-5.1); Sodium 130 mmol/L (137-145); Total Protein 6.9 g/dL (6.3-8.2)
[2023-06-30 11:28] LABS: Prothrombin Time 10.9 SECONDS (9.4-12.5)
[2023-06-30 11:31] LABS: PTT Partial Thromboplastin Tim 33 SECONDS (25.1-36.5)
--- NOTE | 2023-06-30 11:40 | DI.CT.S_ITS ---
PROCEDURE: CT ABDOMEN PELVIS WO CON INDICATIONS: abd pain; constipation; inability to urinate TECHNIQUE: Axial sections were acquired from the lung bases to the pubic symphysis. Coronal and sagittal reformats were performed. For radiation dose reduction, the following was used: automated exposure control, adjustment of mA and/or kV according to patient size. COMPARISON: [facility], CT, CT ANGIO ABD/PEL GI BLEED, 05/18/2023, 10:24. [facility], CT, CT ABDOMEN PELVIS WO CON, 05/17/2020, 1:57. FINDINGS: Image quality: Diagnostic. Lower Chest: No significant findings. URINARY: Right Kidney: No stones or hydronephrosis. Right Ureter: No hydroureter. Left Kidney: No stones or hydronephrosis. Left Ureter: No hydroureter. Bladder: Normal wall thickness. No stones. ABDOMEN: Liver: No contour-deforming solid mass. Gallbladder: No radiopaque gallstones or wall thickening. Biliary ducts: No biliary dilation. Pancreas: No ductal dilation. Spleen: Surgically absent Adrenal Glands: No adrenal nodules. Stomach and Bowel: Normal colonic caliber, without significant wall thickening. Large diffuse fecal load. Scattered diverticulosis without evidence of diverticulitis. Peritoneum: No abnormal intraperitoneal fluid. No free air. Ventral Wall: No hernia. Abdominal Nodes: No enlarged retroperitoneal or mesenteric lymph nodes. Vessels: Aorta and inferior vena cava are normal in size. PELVIS: Pelvic Organs: Uterus is surgically absent. No adnexal masses.. Pelvic Nodes: Unremarkable. Miscellaneous: No inguinal hernias are seen. Bones: Severe levocurvature centered at L1. IMPRESSION: 1. No renal stone, ureteral stone, or hydronephrosis. 2. Unremarkable bladder. 3. Large diffuse fecal load. 4. No acute abdominal process noted. Dictated by: Manolo Li M.D. on 06/30/2023 at 12:40 Approved by: Manolo Li M.D. on 06/30/2023 at 12:47
[2023-06-30 11:43] LABS: Procalcitonin 0.096 ng/mL (<0.5)
[2023-06-30 12:57] LABS: Urine Volume 10mL (spun)
[2023-06-30 12:58] LABS: Bacteria Urine Few (2-10); Culture Indicated Urine Cult Not Indicated; RBC Urine 1-5/HPF (0-5/HPF); Squamous Epithelial Cell Urine 1-5 /HPF (0-5/HPF); WBC Urine 1-5/HPF (0-5/HPF)
[2023-06-30 15:06] LABS: Alanine Aminotransferase 11 IU/L (<35); Albumin 3.3 g/dL (3.5-5.0); Albumin Globulin Ratio 1.2 (1.0-2.8); Alkaline Phosphatase 83 U/L (38-126); Aspartate Aminotransferase 21 IU/L (14-36); Bilirubin Total 0.8 mg/dL (0.2-1.3); Blood Urea Nitrogen 19 mg/dL (7-17); Calcium 7.9 mg/dL (8.4-10.2); Carbon Dioxide 26 mmol/L (22-32); Chloride 104 mmol/L (98-107); Estimated Glomerular Filt Rate 46 mL/min (>60); Globulin 2.7 g/dL (1.7-4.1); Glucose 107 mg/dL (80-110); HEMOLYSIS < 15 (0-50); Potassium 3.5 mmol/L (3.4-5.1); Sodium 133 mmol/L (137-145)
--- NOTE | 2023-06-30 15:09 | ED_ITS ---
HPI - Female Genitourinary <Joe Nagy PA-C - Last Filed: 06/30/23 17:53> General Chief complaint: Urogenital-Female Stated complaint: Hasn't Urinated in 3 days Time Seen by Provider: 06/30/23 10:46 Source: patient Mode of arrival: Wheelchair History of Present Illness HPI Narrative: 82-year-old female with a complex medical history including ITP, atrial fibrillation, venous insufficiency, pulmonary embolism, iron deficiency anemia, thrombocytopenia presents to the ED with inability to urinate or have a bowel movement for 3 days. Patient states that she saw her PCP Dr. Machado last week for back pain, for which he prescribed Flexeril, tramadol, Tylenol. Patient has been taking those medications as prescribed. Patient states that she has been unable to urinate for the last 3 days and has not been able to have a bowel movement. Patient appears very sleepy and unable to provide full history. Patient denies fever, chills, chest pain, shortness of breath, nausea, vomiting. Patient does endorse some abdominal pain. No history of kidney stones. Patient is also being treated for a leg wound by a wound care doctor who she just saw this morning. He has advised that the bandage not be unwrapped and is closely monitoring it. He has indicated to patient that he would re-evaluate her wound at the end of this week and decide if he wanted to start antibiotics. Related Data Home Medications Medication Instructions Recorded Confirmed polyethylene glycol 3350 17 gram 17 gm PO BEDTIME Constipation ##0 05/26/17 05/18/23 oral powder packet (Miralax) cholecalciferol (vitamin D3) 25 1 mcg PO DAILY 05/18/23 05/18/23 mcg (1,000 unit) capsule (Vitamin D3) diltiazem HCl 30 mg tablet 30 mg PO BID 05/18/23 05/18/23 estradiol 0.01% (0.1 mg/gram) 2 g vaginal 2XW 05/18/23 05/18/23 vaginal cream melatonin 3 mg capsule 3 mg PO BEDTIME 05/18/23 05/18/23 multivit with minerals-iron 18 1 tab PO DAILY 05/18/23 05/18/23 mg-folic ac 400 mcg-vit K 25 mcg tablet (Adults Multivitamin) vitamin B complex 1 tab PO DAILY 05/18/23 05/18/23 Previous Rx's Medication Instructions Recorded lorazepam 0.5 mg tablet 0.5 mg PO BEDTIME #30 tabs 04/05/22 pantoprazole 20 mg tablet,delayed 20 mg PO DAILY #30 tabs 05/23/23 release prednisone 20 mg tablet See Rx Instructions .Route 05/23/23 .COMPLEX #67 tabs oxycodone 5 mg tablet 5 mg PO Q6H PRN pain #10 tabs 06/18/23 Allergies Allergy/AdvReac Type Severity Reaction Status Date / Time latex Allergy Mild LOCAL RASH Verified 06/30/23 10:32 Penicillins Allergy Mild CHILDHOOD Verified 06/30/23 10:32 Sulfa (Sulfonamide Allergy Mild SOMETHING Verified 06/30/23 10:32 Antibiotics) TO DO WITH BLADDER OR KIDNEY'S?? azithromycin Allergy Verified 06/30/23 10:32 iodine AdvReac Intermediate RAPID Verified 06/30/23 10:32 HEART RATE (IV CONTRAST) Review of Systems <Joe Nagy PA-C - Last Filed: 06/30/23 17:53> Constitutional Constitutional: Denies chills, Denies fatigue, Denies fever(s), Denies frequent falls, Denies lethargy and Denies weakness Eyes Eyes: Denies change in vision, Denies eye discharge, Denies irritation and Denies loss of vision ENT Ears, Nose, Mouth, and Throat: Denies change in voice, Denies dizziness, Denies neck pain, Denies sore throat and Denies throat swelling Cardiovascular Cardiovascular: Denies chest pain, Denies irregular heart rhythm, Denies lightheadedness, Denies palpitations, Denies dyspnea, Denies dyspnea on exertion and Denies orthopnea Respiratory Respiratory: Denies cough, Denies dyspnea, Denies dyspnea on exertion and Denies wheezing Gastrointestinal Gastrointestinal: Reports abdominal pain, Denies change in bowel habits, Reports constipation, Denies diarrhea, Denies nausea and Denies vomiting Genitourinary Genitourinary: Reports difficulty voiding Musculoskeletal Musculoskeletal: Denies neck pain and Denies numbness Integumentary/Breasts Skin/Breast: Denies pruritus, Denies erythema, Denies rash and Denies wounds Neurologic Neurologic: Denies behavioral changes, Denies confusion, Denies dizziness, Denies frequent falls, Denies loss of vision, Denies numbness and Denies weakness Psychiatric Psychiatric: Denies anxiety, Denies behavioral changes, Denies confusion, Denies depression, Denies homicidal ideation and Denies suicidal ideation Endocrine Endocrine: Denies fatigue, Denies flushing and Denies palpitations Hematologic/Lymphatic Hematologic/Lymphatic: Denies easy bruising Allergic/Immunologic Allergic/Immunologic: Denies urticaria, Denies throat swelling and Denies wheezing Patient History <Joe Nagy PA-C - Last Filed: 06/30/23 17:53> Medical History SVT (supraventricular tachycardia) 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 Head:?normal to inspection Ears:?hearing grossly normal bilaterally Nose:?external nose normal Face and sinus:?normal facial exam and sinuses nontender Mouth:?oral mucosae normal Throat:?posterior oropharynx normal Eyes General:?appearance normal, both eyes and all related structures Neck Neck:?normal visual inspection and no lymphadenopathy noted Resp Effort & Inspection:?normal respiratory effort Auscultation:?clear to auscultation bilaterally Cardio Rate:?regular rate Rhythm:?regular rhythm GI Abdomen is soft, nondistended, with generalized tenderness to palpation Neuro General:?patient alert, patient awake and patient oriented x3 Initial Vital Signs Initial Vital Signs: Vital Signs Temperature 97.6 F 06/30/23 10:27 Pulse Rate 72 06/30/23 10:27 Respiratory Rate 16 06/30/23 10:27 Blood Pressure 125/65 06/30/23 10:27 Pulse Oximetry 99 06/30/23 10:27 Oxygen Delivery Method Room Air 06/30/23 10:27 <Sheri Villegas MD - Last Filed: 07/01/23 10:12> Initial Vital Signs Initial Vital Signs: Vital Signs Temperature 97.6 F 06/30/23 10:27 Pulse Rate 72 06/30/23 10:27 Respiratory Rate 16 06/30/23 10:27 Blood Pressure 125/65 06/30/23 10:27 Pulse Oximetry 99 06/30/23 10:27 Oxygen Delivery Method Room Air 06/30/23 10:27 Course <Joe Nagy PA-C - Last Filed: 06/30/23 17:53> Orders Ordered: Discontinued Medications Sodium Chloride (Normal Saline 0.9%) 1,000 mls @ 1,000 mls/hr IV BOLUS ONE Stop: 06/30/23 11:42 Last Infusion: 06/30/23 12:45 Dose: Infused Documented By: Admin: 06/30/23 11:01 Dose: 1,000 mls/hr Documented By: MPO Sodium Chloride (Normal Saline 0.9%) 1,000 mls @ 1,000 mls/hr IV BOLUS ONE Stop: 06/30/23 14:28 Last Infusion: 06/30/23 14:39 Dose: Infused Documented By: Admin: 06/30/23 13:36 Dose: 1,000 mls/hr Documented By: MPO Sodium Chloride (Normal Saline 0.9%) 1,000 mls @ 1,000 mls/hr IV BOLUS ONE Stop: 06/30/23 16:23 Last Infusion: 06/30/23 16:38 Dose: Infused Documented By: Admin: 06/30/23 15:37 Dose: 1,000 mls/hr Documented By: MPO Ondansetron HCl (Ondansetron 4 Mg/2 Ml Inj) 4 mg IV NOW PRN PRN Reason: Nausea And Vomiting Ondansetron HCl (Ondansetron 4 Mg Odt) 4 mg SL NOW PRN PRN Reason: Nausea And Vomiting Vital Signs Vital signs: Vital Signs - 8 hr 06/30/23 10:27 06/30/23 11:27 06/30/23 11:30 Temperature 97.6 F Pulse Rate 72 75 Respiratory Rate 16 31 H Blood Pressure 125/65 145/86 H Pulse Oximetry 99 98 Oxygen Delivery Method Room Air 06/30/23 11:30 06/30/23 12:00 06/30/23 12:00 Temperature Pulse Rate 76 70 Respiratory Rate 31 H 25 H Blood Pressure 142/68 H Pulse Oximetry 97 95 Oxygen Delivery Method 06/30/23 12:30 06/30/23 13:00 06/30/23 13:30 Temperature Pulse Rate 87 78 80 Respiratory Rate 25 H 24 28 H Blood Pressure Pulse Oximetry 96 98 96 Oxygen Delivery Method 06/30/23 14:00 06/30/23 14:30 06/30/23 15:00 Temperature Pulse Rate 74 86 86 Respiratory Rate 23 22 16 Blood Pressure 136/69 Pulse Oximetry 98 97 96 Oxygen Delivery Method 06/30/23 15:25 06/30/23 15:25 06/30/23 15:30 Temperature Pulse Rate 93 H 94 H Respiratory Rate 21 23 Blood Pressure 136/69 Pulse Oximetry 97 96 Oxygen Delivery Method 06/30/23 16:00 06/30/23 16:22 06/30/23 16:22 Temperature Pulse Rate 85 79 Respiratory Rate 20 24 Blood Pressure 167/77 H Pulse Oximetry 96 97 Oxygen Delivery Method 06/30/23 16:30 06/30/23 16:30 06/30/23 17:00 Temperature Pulse Rate 85 74 Respiratory Rate 19 17 Blood Pressure 156/96 H Pulse Oximetry 96 97 Oxygen Delivery Method Room Air 06/30/23 17:01 06/30/23 17:01 06/30/23 17:30 Temperature Pulse Rate 73 72 Respiratory Rate 21 25 H Blood Pressure 130/63 Pulse Oximetry 97 99 Oxygen Delivery Method 06/30/23 17:31 06/30/23 17:31 Temperature Pulse Rate 72 Respiratory Rate 23 Blood Pressure 160/85 H Pulse Oximetry 95 Oxygen Delivery Method <Sheri Villegas MD - Last Filed: 07/01/23 10:12> Orders Ordered: Discontinued Medications Sodium Chloride (Normal Saline 0.9%) 1,000 mls @ 1,000 mls/hr IV BOLUS ONE Stop: 06/30/23 11:42 Last Infusion: 06/30/23 12:45 Dose: Infused Documented By: [facility] Admin: 06/30/23 11:01 Dose: 1,000 mls/hr Documented By: NORMA Sodium Chloride (Normal Saline 0.9%) 1,000 mls @ 1,000 mls/hr IV BOLUS ONE Stop: 06/30/23 14:28 Last Infusion: 06/30/23 14:39 Dose: Infused Documented By: Admin: 06/30/23 13:36 Dose: 1,000 mls/hr Documented By: NORMA Sodium Chloride (Normal Saline 0.9%) 1,000 mls @ 1,000 mls/hr IV BOLUS ONE Stop: 06/30/23 16:23 Last Infusion: 06/30/23 16:38 Dose: Infused Documented By: Admin: 06/30/23 15:37 Dose: 1,000 mls/hr Documented By: NORMA Ondansetron HCl (Ondansetron 4 Mg/2 Ml Inj) 4 mg IV NOW PRN PRN Reason: Nausea And Vomiting Ondansetron HCl (Ondansetron 4 Mg Odt) 4 mg SL NOW PRN PRN Reason: Nausea And Vomiting Vital Signs Vital signs: Vital Signs - 8 hr 06/30/23 10:27 06/30/23 11:27 06/30/23 11:30 Temperature 97.6 F Pulse Rate 72 75 Respiratory Rate 16 31 H Blood Pressure 125/65 145/86 H Pulse Oximetry 99 98 Oxygen Delivery Method Room Air 06/30/23 11:30 06/30/23 12:00 06/30/23 12:00 Temperature Pulse Rate 76 70 Respiratory Rate 31 H 25 H Blood Pressure 142/68 H Pulse Oximetry 97 95 Oxygen Delivery Method 06/30/23 12:30 06/30/23 13:00 06/30/23 13:30 Temperature Pulse Rate 87 78 80 Respiratory Rate 25 H 24 28 H Blood Pressure Pulse Oximetry 96 98 96 Oxygen Delivery Method 06/30/23 14:00 06/30/23 14:30 06/30/23 15:00 Temperature Pulse Rate 74 86 86 Respiratory Rate 23 22 16 Blood Pressure 136/69 Pulse Oximetry 98 97 96 Oxygen Delivery Method 06/30/23 15:25 06/30/23 15:25 06/30/23 15:30 Temperature Pulse Rate 93 H 94 H Respiratory Rate 21 23 Blood Pressure 136/69 Pulse Oximetry 97 96 Oxygen Delivery Method 06/30/23 16:00 06/30/23 16:22 06/30/23 16:22 Temperature Pulse Rate 85 79 Respiratory Rate 20 24 Blood Pressure 167/77 H Pulse Oximetry 96 97 Oxygen Delivery Method 06/30/23 16:30 06/30/23 16:30 06/30/23 17:00 Temperature Pulse Rate 85 74 Respiratory Rate 19 17 Blood Pressure 156/96 H Pulse Oximetry 96 97 Oxygen Delivery Method Room Air 06/30/23 17:01 06/30/23 17:01 06/30/23 17:30 Temperature Pulse Rate 73 72 Respiratory Rate 21 25 H Blood Pressure 130/63 Pulse Oximetry 97 99 Oxygen Delivery Method 06/30/23 17:31 06/30/23 17:31 Temperature Pulse Rate 72 Respiratory Rate 23 Blood Pressure 160/85 H Pulse Oximetry 95 Oxygen Delivery Method MDM - Female Genitourinary <Hyma Yakov, JONY - Last Filed: 06/30/23 17:53> Lab Data 06/30/23 11:00 06/30/23 16:35 Labs: Lab Results 06/30/23 06/30/23 06/30/23 Range/Units 11:00 12:33 14:48 WBC 14.4 H (4.5-11.0) X10^3/uL RBC 4.13 (4.0-5.2) X10^6/uL Hgb 11.6 L (12.0-16.0) g/dL Hct 34.6 L (36-46) % MCV 83.9 (80-100) fL MCH 28.2 (26-34) PG MCHC 33.6 (30-36) % RDW 16.3 H (11.6-14.8) % Plt Count 205 (150-400) X10^3/uL Neut % (Auto) 73.4 (50-75) % Lymph % (Auto) 15.4 L (25-40) % [place] % (Auto) 9.3 (3-14) % Eos % (Auto) 0.6 L (2-4) % Baso % (Auto) 1.3 (0-2) % Neut # (Auto) 83389 H (1703-1656) /uL Lymph # (Auto) 2200 (0112-5635) /uL [place] # (Auto) 1300 H (0-900) /uL Eos # (Auto) 100 (0-450) /uL Baso # (Auto) 200 H (0-100) /uL PT 10.9 (9.4-12.5) SECONDS INR 1.0 (0.9-1.3) APTT 33 (25.1-36.5) SECONDS Sodium 130 L 133 L (137-145) mmol/L Potassium 3.9 3.5 (3.4-5.1) mmol/L Chloride 96 L 104 (98-107) mmol/L Carbon Dioxide 26 26 (22-32) mmol/L BUN 24 H 19 H (7-17) mg/dL Creatinine 1.48 H 1.19 H (0.52-1.04) mg/dL Estimated GFR 35 L 46 L (>60) mL/min BUN/Creatinine Ratio 16.2 16.0 (6-22) Glucose 81 107 (80-110) mg/dL Lactate 1.4 (0.7-2.1) mmol/L Calcium 8.9 7.9 L (8.4-10.2) mg/dL Total Bilirubin 0.9 0.8 (0.2-1.3) mg/dL AST 21 21 (14-36) IU/L ALT 13 11 (<35) IU/L Alkaline Phosphatase 95 83 (38-126) U/L Total Protein 6.9 6.0 L (6.3-8.2) g/dL Albumin 3.9 3.3 L (3.5-5.0) g/dL Globulin 3.0 2.7 (1.7-4.1) g/dL Albumin/Globulin Ratio 1.3 1.2 (1.0-2.8) Lipase 41 (23-300) U/L Procalcitonin 0.096 (<0.5) ng/mL Urine RBC 1-5/hpf (0-5/HPF) Urine WBC 1-5/hpf (0-5/HPF) Ur Squamous Epith Cells 1-5 /hpf (0-5/HPF) Urine Bacteria Few (2-10) H (None) Ur Culture Indicated? Cult not indicated Vol Urine Centrifuged 10ml (spun) 06/30/23 Range/Units 16:35 WBC (4.5-11.0) X10^3/uL RBC (4.0-5.2) X10^6/uL Hgb (12.0-16.0) g/dL Hct (36-46) % MCV (80-100) fL MCH (26-34) PG MCHC (30-36) % RDW (11.6-14.8) % Plt Count (150-400) X10^3/uL Neut % (Auto) (50-75) % Lymph % (Auto) (25-40) % [place] % (Auto) (3-14) % Eos % (Auto) (2-4) % Baso % (Auto) (0-2) % Neut # (Auto) (6721-2295) /uL Lymph # (Auto) (8720-2736) /uL [place] # (Auto) (0-900) /uL Eos # (Auto) (0-450) /uL Baso # (Auto) (0-100) /uL PT (9.4-12.5) SECONDS INR (0.9-1.3) APTT (25.1-36.5) SECONDS Sodium 134 L (137-145) mmol/L Potassium 3.6 (3.4-5.1) mmol/L Chloride 107 (98-107) mmol/L Carbon Dioxide 24 (22-32) mmol/L BUN 19 H (7-17) mg/dL Creatinine 1.11 H (0.52-1.04) mg/dL Estimated GFR 50 L (>60) mL/min BUN/Creatinine Ratio 17.1 (6-22) Glucose 101 (80-110) mg/dL Lactate (0.7-2.1) mmol/L Calcium 7.8 L (8.4-10.2) mg/dL Total Bilirubin 0.6 (0.2-1.3) mg/dL AST 17 (14-36) IU/L ALT 11 (<35) IU/L Alkaline Phosphatase 79 (38-126) U/L Total Protein 5.8 L (6.3-8.2) g/dL Albumin 3.1 L (3.5-5.0) g/dL Globulin 2.7 (1.7-4.1) g/dL Albumin/Globulin Ratio 1.1 (1.0-2.8) Lipase (23-300) U/L Procalcitonin (<0.5) ng/mL Urine RBC (0-5/HPF) Urine WBC (0-5/HPF) Ur Squamous Epith Cells (0-5/HPF) Urine Bacteria (None) Ur Culture Indicated? Vol Urine Centrifuged Urine Dip Bedside Urine Glucose Negative Bedside Urine Bilirubin - Negative Bedside Urine Ketone - Negative Urine Specific [place] 1.010 Bedside Urine Occult Blood +/- Bedside Urine pH 6.0 Bedside Urine Protein - Negative Bedside Urine Urobilinogen - Negative Bedside Urine Nitrite - Negative Bedside Urine Leukocytes +/- 15 Esterase MDM Narrative Medical decision making narrative: 82-year-old female with a complex medical history including ITP, atrial fibrillation, venous insufficiency, pulmonary embolism, iron deficiency anemia, thrombocytopenia presents to the ED with inability to urinate or have a bowel movement for 3 days. Concern for UTI versus pyelonephritis versus urinary retention versus kidney stones versus constipation versus other intra-abdominal pathology versus other. Bladder scan shows 138 mL of retained urine. Patient was able to void successfully and provide a sample. Urine positive for leukocyte esterase but no WBCs or nitrates. Obtained labs, CT abdomen pelvis, chest x-ray. Chest x-ray without acute findings. CT abdomen pelvis shows large diffuse fecal load and no other acute abdominal processes. CBC with elevated white count of 14.4. Chem shows EMILY with creatinine elevated to 1.48. GFR is reduced to 35, with patient's baseline being greater than 60. BUN elevated to 24. Sodium mildly low at 130. Patient endorses that she has not been drinking water. Dehydration is the most likely etiology of patient's EMILY. Will give NS boluses and recheck Chem. After 2 L of NS, patient's kidney function improved. BUN 19, creatinine 1.19, GFR 46. Sodium improved to 133. Patient also seems less sleepy, able to recall and provide history. Will continue IV fluids and recheck Chem. After 3 L of NS, patient's kidney function continued to improve. Creatinine improved to 1.11 and GFR improved to 50. Patient is also completely lucid, able to answer all questions and understands what she needs to do to adequately hydrate at home. She agrees to stop tramadol which is contributing to both her sleepiness and inability to hydrate as well as to her constipation. She agrees to take Tylenol for pain control. Counseled patient on drinking at least 8-10 glasses of water daily. Discussed MiraLax and magnesium to treat her constipation. Recommend follow-up PCP. ED return precautions discussed with patient. Patient verbalized understanding. Medical records reviewed: Yes <Sheri Villegas MD - Last Filed: 07/01/23 10:12> Lab Data Labs: Lab Results 06/30/23 06/30/23 06/30/23 Range/Units 11:00 12:33 14:48 WBC 14.4 H (4.5-11.0) X10^3/uL RBC 4.13 (4.0-5.2) X10^6/uL Hgb 11.6 L (12.0-16.0) g/dL Hct 34.6 L (36-46) % MCV 83.9 (80-100) fL MCH 28.2 (26-34) PG MCHC 33.6 (30-36) % RDW 16.3 H (11.6-14.8) % Plt Count 205 (150-400) X10^3/uL Neut % (Auto) 73.4 (50-75) % Lymph % (Auto) 15.4 L (25-40) % [place] % (Auto) 9.3 (3-14) % Eos % (Auto) 0.6 L (2-4) % Baso % (Auto) 1.3 (0-2) % Neut # (Auto) 55904 H (3444-9835) /uL Lymph # (Auto) 2200 (9645-5223) /uL [place] # (Auto) 1300 H (0-900) /uL Eos # (Auto) 100 (0-450) /uL Baso # (Auto) 200 H (0-100) /uL PT 10.9 (9.4-12.5) SECONDS INR 1.0 (0.9-1.3) APTT 33 (25.1-36.5) SECONDS Sodium 130 L 133 L (137-145) mmol/L Potassium 3.9 3.5 (3.4-5.1) mmol/L Chloride 96 L 104 (98-107) mmol/L Carbon Dioxide 26 26 (22-32) mmol/L BUN 24 H 19 H (7-17) mg/dL Creatinine 1.48 H 1.19 H (0.52-1.04) mg/dL Estimated GFR 35 L 46 L (>60) mL/min BUN/Creatinine Ratio 16.2 16.0 (6-22) Glucose 81 107 (80-110) mg/dL Lactate 1.4 (0.7-2.1) mmol/L Calcium 8.9 7.9 L (8.4-10.2) mg/dL Total Bilirubin 0.9 0.8 (0.2-1.3) mg/dL AST 21 21 (14-36) IU/L ALT 13 11 (<35) IU/L Alkaline Phosphatase 95 83 (38-126) U/L Total Protein 6.9 6.0 L (6.3-8.2) g/dL Albumin 3.9 3.3 L (3.5-5.0) g/dL Globulin 3.0 2.7 (1.7-4.1) g/dL Albumin/Globulin Ratio 1.3 1.2 (1.0-2.8) Lipase 41 (23-300) U/L Procalcitonin 0.096 (<0.5) ng/mL Urine RBC 1-5/hpf (0-5/HPF) Urine WBC 1-5/hpf (0-5/HPF) Ur Squamous Epith Cells 1-5 /hpf (0-5/HPF) Urine Bacteria Few (2-10) H (None) Ur Culture Indicated? Cult not indicated Vol Urine Centrifuged 10ml (spun) 06/30/23 Range/Units 16:35 WBC (4.5-11.0) X10^3/uL RBC (4.0-5.2) X10^6/uL Hgb (12.0-16.0) g/dL Hct (36-46) % MCV (80-100) fL MCH (26-34) PG MCHC (30-36) % RDW (11.6-14.8) % Plt Count (150-400) X10^3/uL Neut % (Auto) (50-75) % Lymph % (Auto) (25-40) % [place] % (Auto) (3-14) % Eos % (Auto) (2-4) % Baso % (Auto) (0-2) % Neut # (Auto) (4748-4944) /uL Lymph # (Auto) (1902-7450) /uL [place] # (Auto) (0-900) /uL Eos # (Auto) (0-450) /uL Baso # (Auto) (0-100) /uL PT (9.4-12.5) SECONDS INR (0.9-1.3) APTT (25.1-36.5) SECONDS Sodium 134 L (137-145) mmol/L Potassium 3.6 (3.4-5.1) mmol/L Chloride 107 (98-107) mmol/L Carbon Dioxide 24 (22-32) mmol/L BUN 19 H (7-17) mg/dL Creatinine 1.11 H (0.52-1.04) mg/dL Estimated GFR 50 L (>60) mL/min BUN/Creatinine Ratio 17.1 (6-22) Glucose 101 (80-110) mg/dL Lactate (0.7-2.1) mmol/L Calcium 7.8 L (8.4-10.2) mg/dL Total Bilirubin 0.6 (0.2-1.3) mg/dL AST 17 (14-36) IU/L ALT 11 (<35) IU/L Alkaline Phosphatase 79 (38-126) U/L Total Protein 5.8 L (6.3-8.2) g/dL Albumin 3.1 L (3.5-5.0) g/dL Globulin 2.7 (1.7-4.1) g/dL Albumin/Globulin Ratio 1.1 (1.0-2.8) Lipase (23-300) U/L Procalcitonin (<0.5) ng/mL Urine RBC (0-5/HPF) Urine WBC (0-5/HPF) Ur Squamous Epith Cells (0-5/HPF) Urine Bacteria (None) Ur Culture Indicated? Vol Urine Centrifuged Urine Dip Bedside Urine Glucose Negative Bedside Urine Bilirubin - Negative Bedside Urine Ketone - Negative Urine Specific [place] 1.010 Bedside Urine Occult Blood +/- Bedside Urine pH 6.0 Bedside Urine Protein - Negative Bedside Urine Urobilinogen - Negative Bedside Urine Nitrite - Negative Bedside Urine Leukocytes +/- 15 Esterase Discharge Plan Departure Patient Disposition: Home Clinical Impression: EMILY (acute kidney injury) Instructions: Acute Kidney Injury Activity Restrictions/Additional Instructions: You were evaluated in the ED today for inability to urinate and constipation. It appears that you are extremely constipated based on the CT scan. Please take the full dose of MiraLax nightly. You may also take 300 mg of magnesium citrate which is available [id number] in the drug store for immediate relief of the constipation. Please ensure that you are at home by a bathroom when you take the magnesium, since it can act quite quickly. Your labs also showed that you are extremely dehydrated, which is why you were not able to urinate since you were not drinking enough water. It appears that you may have been taking too many of your opiate pain pills (tramadol) which are making you too sleepy and you are unable to drink water. The tramadol is also making you very constipated since opioids can create constipation. Please stop the tramadol and take Tylenol for your pain. Please ensure you are getting 8-10 glasses of water daily. Please follow-up with your PCP as soon as possible. Return to the ED if you have worsening symptoms. Prescriptions: No Action polyethylene glycol 3350 [Miralax] 17 GM powder in packet 17 gm PO BEDTIME Qty: 0 lorazepam 0.5 mg tablet 0.5 mg PO BEDTIME Qty: 30 0RF Rx Instructions: take by mouth once daily at bedtime estradiol 0.01 % (0.1 mg/gram) cream 2 g vaginal 2XW Patient Comments: takes sundays and wednesdays diltiazem HCl 30 mg tablet 30 mg PO BID vitamin B complex Tablet 1 tab PO DAILY cholecalciferol (vitamin D3) [Vitamin D3] 25 mcg (1,000 unit) Capsule 1 mcg PO DAILY Adults Multivitamin 18 mg iron-400 mcg-25 mcg Tablet 1 tab PO DAILY melatonin 3 mg Capsule 3 mg PO BEDTIME prednisone 20 mg tablet See Rx Instructions .ROUTE .COMPLEX Qty: 67 0RF Rx Instructions: take 40 mg daily for 1 week, 30 mg daily for 1 week, then 20 mg daily for 6 weeks. pantoprazole 20 mg tablet,delayed release (DR/EC) 20 mg PO DAILY Qty: 30 0RF oxycodone 5 mg tablet 5 mg PO Q6H PRN (Reason: pain) Qty: 10 0RF Referrals: Jayson Machado MD [Primary Care Provider] - Stand Alone Forms: Patient Portal/API ED Sign-out <Sheri Villegas MD - Last Filed: 07/01/23 10:12> Cosign ED Attending Tarshaature Attestation: I was immediately available in the department for consultation throughout this patient's visit. Sheri Villegas MD
--- NOTE | 2023-06-30 15:14 | PC.NURSE ---
Pt sitting up in bed and provided snack of yogurt, crackers, and 1/2 pb&j sandwich. Pt a&ox4. Denies pain.
[2023-06-30 17:00] LABS: Alanine Aminotransferase 11 IU/L (<35); Albumin 3.1 g/dL (3.5-5.0); Albumin Globulin Ratio 1.1 (1.0-2.8); Alkaline Phosphatase 79 U/L (38-126); Aspartate Aminotransferase 17 IU/L (14-36); BUN Creatinine Ratio 17.1 (6-22); Bilirubin Total 0.6 mg/dL (0.2-1.3); Blood Urea Nitrogen 19 mg/dL (7-17); Calcium 7.8 mg/dL (8.4-10.2); Carbon Dioxide 24 mmol/L (22-32); Chloride 107 mmol/L (98-107); Estimated Glomerular Filt Rate 50 mL/min (>60); Globulin 2.7 g/dL (1.7-4.1); Glucose 101 mg/dL (80-110); HEMOLYSIS < 15 (0-50); Potassium 3.6 mmol/L (3.4-5.1); Sodium 134 mmol/L (137-145); Total Protein 5.8 g/dL (6.3-8.2)
--- NOTE | 2023-06-30 17:08 | PC.NURSE ---
Pt sitting up in bed. Denies pain at this time. Up to [facility]
== END 2023-06-30 17:56 | disposition home or self-care (01) ==
PROVIDERS: Emergency Medicine; Emergency Provider Student in an Organized Health Care Education/Training Program; Family Provider Physician Assistant; PCP Family Medicine
DX: N17.9 Acute kidney failure, unspecified (principal); K59.00 Constipation, unspecified
CPT/HCPCS: 36415; 51798; 71045; 74176; 80053; 81003; 81015; 83605; 83690; 84145; 85025; 85610; 85730; 87040; 96360; 96361; 99213; 99284

== ENCOUNTER → 2023-07-03 08:20 | Outpatient (CLI) | payer MEDICARE, OTHER, SELFPAY ==
[2023-05-18 13:38] VITALS: BMI 20.9
== END ==
PROVIDERS: Family Provider Physician Assistant; PCP Family Medicine; Visit Provider Surgery
DX: S81.802A Unspecified open wound, left lower leg, initial encounter (principal); S81.812A Laceration without foreign body, left lower leg, initial encounter; I87.2 Venous insufficiency (chronic) (peripheral); L53.9 Erythematous condition, unspecified; R60.0 Localized edema; R23.3 Spontaneous ecchymoses; D69.3 Immune thrombocytopenic purpura; Z92.25 Personal history of immunosuppression therapy; M79.662 Pain in left lower leg
CPT/HCPCS: 11042; 11045; 99213

== ENCOUNTER → 2023-07-08 09:23 | Outpatient (CLI) | payer MEDICARE, OTHER, SELFPAY ==
[2023-05-18 13:38] VITALS: BMI 20.9
== END ==
PROVIDERS: Family Provider Physician Assistant; PCP Family Medicine; Visit Provider Surgery
DX: S81.812A Laceration without foreign body, left lower leg, initial encounter (principal); R60.0 Localized edema; L53.9 Erythematous condition, unspecified; R23.3 Spontaneous ecchymoses; M79.81 Nontraumatic hematoma of soft tissue
CPT/HCPCS: 99214

== ENCOUNTER → 2023-07-10 10:32 | Outpatient (CLI) | payer MEDICARE, OTHER, SELFPAY ==
[2023-05-18 13:38] VITALS: BMI 20.9
== END ==
LOC: WC 10:33
PROVIDERS: Family Provider Physician Assistant; PCP Family Medicine; Visit Provider Surgery
DX: S81.802A Unspecified open wound, left lower leg, initial encounter (principal); S71.112A Laceration without foreign body, left thigh, initial encounter; I87.2 Venous insufficiency (chronic) (peripheral); R60.0 Localized edema; R23.3 Spontaneous ecchymoses; D69.3 Immune thrombocytopenic purpura; Z79.01 Long term (current) use of anticoagulants
CPT/HCPCS: 11042; 11045; 99213

== ENCOUNTER → 2023-07-14 10:54 | Outpatient (CLI) | payer MEDICARE, OTHER, SELFPAY ==
[2023-05-18 13:38] VITALS: BMI 20.9
== END ==
LOC: WC 10:57
PROVIDERS: Family Provider Physician Assistant; PCP Family Medicine; Visit Provider Surgery
DX: S71.112A Laceration without foreign body, left thigh, initial encounter (principal); S81.802A Unspecified open wound, left lower leg, initial encounter; S81.812A Laceration without foreign body, left lower leg, initial encounter; I87.2 Venous insufficiency (chronic) (peripheral); R60.0 Localized edema; R23.3 Spontaneous ecchymoses; D69.3 Immune thrombocytopenic purpura; Z92.25 Personal history of immunosuppression therapy; Z79.01 Long term (current) use of anticoagulants
CPT/HCPCS: 11042

== ENCOUNTER → 2023-07-17 10:23 | Outpatient (CLI) | payer MEDICARE, OTHER, SELFPAY ==
[2023-05-18 13:38] VITALS: BMI 20.9
== END ==
LOC: WC 10:51
PROVIDERS: Family Provider Physician Assistant; PCP Family Medicine; Visit Provider Surgery
DX: S81.812A Laceration without foreign body, left lower leg, initial encounter (principal); S71.112A Laceration without foreign body, left thigh, initial encounter; S81.802A Unspecified open wound, left lower leg, initial encounter; R60.0 Localized edema; R23.3 Spontaneous ecchymoses
CPT/HCPCS: 99213

== ENCOUNTER 2023-07-19 07:17 | Inpatient (IN) | payer MEDICARE, OTHER, SELFPAY ==
[2023-05-18 13:38] VITALS: BMI 20.9
--- NOTE | 2023-07-19 | DI.CT.S_ITS ---
PROCEDURE: CT HEAD/BRAIN WO CON INDICATIONS: bleeding from mouth, low platelets TECHNIQUE: Noncontrast 4.5 mm thick angled axial sections acquired from the foramen magnum to the vertex, with coronal and sagittal reformats. For radiation dose reduction, the following was used: automated exposure control, adjustment of mA and/or kV according to patient size. COMPARISON: [facility], CT, CT HEAD/BRAIN WO CON, 05/25/2023, 10:37. [facility], CT, CT HEAD WITHOUT CONTRAST, 05/28/2023, 19:23. [facility], CT, CT HEAD/BRAIN WO CON, 06/18/2023, 7:51. FINDINGS: Image quality: Diagnostic. CSF spaces: Basal cisterns are patent. No extra-axial fluid collections. The ventricles are symmetric in size and shape. Brain: No intracranial bleeds or masses. There is cerebral volume loss for age, with resultant ventricular and sulcal prominence. There are periventricular and deep white matter chronic small vessel ischemic changes. There is intracranial internal carotid artery atherosclerosis. Skull and face: Calvarium and visualized facial bones appear intact, without suspicious lesions. Sinuses: Visualized sinuses and mastoids are clear. IMPRESSION: No acute intracranial hemorrhage is seen. No acute intracranial pathology. Dictated by: Sam Paul M.D. on 07/19/2023 at 8:07 Approved by: Sam Paul M.D. on 07/19/2023 at 8:08
[2023-07-19 16:16] VITALS: BP 140/63; PULSE 73; RESP 16; TEMP 36.2; O2SAT 98
[2023-07-19] MEDS: TRANEXAMIC ACID 1,000 MG VIAL 500 MG INH (16:16)
[2023-07-19] MEDS: ONDANSETRON 4 MG/2 ML INJ IV (16:16)
[2023-07-19] MEDS: SODIUM CHLORIDE 0.9% 1,000 ML 500 ML IV (16:16)
[2023-07-19 16:22] VITALS: O2SAT 97
--- NOTE | 2023-07-19 16:32 | P.HP_ITS ---
History of Present Illness History of Present Illness Date Patient Seen: 07/19/23 Time Patient Seen: 16:32 Chief complaint: spitting out blood Narrative: The patient is an 82-year-old female with history of ITP who is on chronic steroids. She also has had atrial fibrillation and hypertension. She presents today oozing and bleeding from her mouth. the patient receives NPlate (Romiplostin) injections weekly but had skipped a dose recently. The emergency physician discussed the case with Oncology in [place]. Recommendations were to restart dexamethasone 40 mg PO daily x at least 4 days and transfuse platelets.If bleeding can also do IVIG. She has been dealing with ITP since 2006. She is DNR, and has filled out a pulsed staying this in the past. She [place] [facility] and her lives nearby and they are previous home. [facility] Medical History SVT (supraventricular tachycardia) Chronic ITP (idiopathic thrombocytopenic purpura) Pulmonary embolism and infarction Chronic steroid use Microscopic hematuria Scoliosis Anxiety Osteoporosis Atrial flutter Hypertension Surgical History History of splenectomy Status post hysterectomy History of tonsillectomy Family History Father Cancer Mother Bleeding disorder Brother Brain cancer Social History marital status: household members: spouse lives independently: Yes Smoking Status: Former smoker alcohol intake: former Meds Home Medications and Allergies Home Medications Medication Instructions Recorded Confirmed Type polyethylene glycol 3350 17 gram 17 gm PO BEDTIME Constipation ##0 05/26/17 07/19/23 History oral powder packet (Miralax) lorazepam 0.5 mg tablet 0.5 mg PO BEDTIME #30 tabs 04/05/22 07/19/23 Rx cholecalciferol (vitamin D3) 25 1 mcg PO DAILY 05/18/23 05/18/23 History mcg (1,000 unit) capsule (Vitamin D3) estradiol 0.01% (0.1 mg/gram) 2 g vaginal 2XW 05/18/23 07/19/23 History vaginal cream melatonin 3 mg capsule 6 mg PO BEDTIME 05/18/23 07/19/23 History multivit with minerals-iron 18 1 tab PO DAILY 05/18/23 05/18/23 History mg-folic ac 400 mcg-vit K 25 mcg tablet (Adults Multivitamin) vitamin B complex 1 tab PO DAILY 05/18/23 05/18/23 History pantoprazole 20 mg tablet,delayed 20 mg PO DAILY #30 tabs 05/23/23 Rx release prednisone 20 mg tablet See Rx Instructions .Route 05/23/23 Rx .COMPLEX #67 tabs oxycodone 5 mg tablet 5 mg PO Q6H PRN pain #10 tabs 06/18/23 Rx Allergies Allergy/AdvReac Type Severity Reaction Status Date / Time latex Allergy Mild LOCAL RASH Verified 06/30/23 10:32 Penicillins Allergy Mild CHILDHOOD Verified 06/30/23 10:32 Sulfa (Sulfonamide Allergy Mild SOMETHING Verified 06/30/23 10:32 Antibiotics) TO DO WITH BLADDER OR KIDNEY'S?? azithromycin Allergy Verified 06/30/23 10:32 iodine AdvReac Intermediate RAPID Verified 06/30/23 10:32 HEART RATE (IV CONTRAST) Review of Systems Review of Systems Narrative: All other systems reviewed with the patient and are negative unless otherwise stated. Exam Vital Signs (past 8 hours): - 07/19/23 16:19 07/19/23 16:22 Pulse Oximetry 97 Oxygen Delivery Method Room Air Room Air Oxygen Flow Rate 0 Oxygen Delivery Method Room Air Oxygen Flow Rate 0 Narrative Exam Narrative: Gen: Alert, oriented, thin and cachectic 81 y.o. ? female, NAD HEENT: normocephalic, atraumatic, conjunctiva clear, sclera non-icteric, oral mucosa pink and moist Neck: supple, full ROM, no JVD, trachea is midline Resp: Lungs CTA, non-labored breathing CV: RRR, no murmur or rubs Abd: soft, non-tender, normoactive BTs Skin: Thin and friable with multiple bruises on her upper extremities, appears dry w/poor turgor Neuro: Alert and oriented X 4 w/no focal deficits. Speech clear and coherent. Extremities: moves all 4 extremities, is ambulatory, negative Avery?s sign Psyche: normal mood and affect. Objective Labs 07/20/23 04:30 07/20/23 04:30 Assessment & Plan Assessment & Plan narrative: 1. ITP flare, present on admission 2. Remote pulmonary embolism 3. Atrial flutter paroxysmal. Not present on admission are active. 4. Hypertension, present on admission and stable. 5. Severe Chronic Protein Calorie Malnutrition PLAN: -per Oncology in [place], transfuse platelets and start dexamethasone 40 mg PO Daily for at least 4 days. -platelets at 4 on admission. Ordered for transfusion. Repeat only if bleeding. -daily CBC Code: Full, surrogate is patient's spouse DVT: Lovenox daily I have utilized all available immediate resources to obtain, update, or review the patient's current medications. Dispo: patient admitted under inpatient status. Will discharge home with improvement in Plt count, likely 2-3 days. Additional history obtained via discussions with the ER provider. These discussions contributed to the creation of the above assessment and plan. I have reviewed patient's presenting documentation, labs, and imaging personally. Time Spent With Patient Time with patient: 30 to 49 minutes with 50% spent counseling/coordinating care
[2023-07-19] MEDS: polyethylene glycoL 3350 17 GM POWD.PACK PO (17:22)
[2023-07-19] MEDS: ACETAMINOPHEN 325 MG TABLET 650 MG PO (17:22)
--- NOTE | 2023-07-19 17:30 | PC.NURSE ---
EMR downtime from 07/18/23 @ 1999 to 07/19/23 @ approximately 1600. Refer to paper documentation.
[2023-07-19 20:00] VITALS: BP 126/84; PULSE 75; RESP 17; TEMP 36.3; O2SAT 95
[2023-07-19 20:18] LABS: Add Manual Diff / Slide Review NO; Basophils Absolute Auto 300 /uL (0-100); Basophils Percent Auto 2.5 % (0-2); Eosinophils Absolute Auto 200 /uL (0-450); Eosinophils Percent Auto 1.5 % (2-4); Hematocrit 33.6 % (36-46); Hemoglobin 11.1 g/dL (12.0-16.0); Lymphocytes Absolute Auto 2700 /uL (1100-4500); Lymphocytes Percent Auto 25.8 % (25-40); Mean Corpuscular Hemoglobin 28.1 PG (26-34); Mean Corpuscular Volume 85.3 fL (80-100); Monocytes Absolute Auto 1200 /uL (0-900); Monocytes Percent Auto 11.9 % (3-14); Neutrophils Absolute Auto 6100 /uL (1500-7000); Neutrophils Percent Auto 58.3 % (50-75); Red Blood Cell Count 3.94 X10^6/uL (4.0-5.2); Red Cell Distribution Width 16.1 % (11.6-14.8); White Blood Cell Count 10.4 X10^3/uL (4.5-11.0)
[2023-07-19 20:19] LABS: Platelet Count 4 X10^3/uL (150-400)
[2023-07-19 20:21] LABS: INR 0.9 (0.9-1.3); PTT Partial Thromboplastin Tim 35 SECONDS (25.1-36.5); Prothrombin Time 10.7 SECONDS (9.4-12.5)
[2023-07-19 20:23] LABS: Alanine Aminotransferase 11 IU/L (<35); Albumin 3.9 g/dL (3.5-5.0); Albumin Globulin Ratio 1.4 (1.0-2.8); Alkaline Phosphatase 88 U/L (38-126); Aspartate Aminotransferase 22 IU/L (14-36); BUN Creatinine Ratio 19.8 (6-22); Bilirubin Total 0.7 mg/dL (0.2-1.3); Blood Urea Nitrogen 23 mg/dL (7-17); Calcium 8.9 mg/dL (8.4-10.2); Carbon Dioxide 29 mmol/L (22-32); Chloride 103 mmol/L (98-107); Estimated Glomerular Filt Rate 47 mL/min (>60); Globulin 2.8 g/dL (1.7-4.1); Glucose 86 mg/dL (80-110); HEMOLYSIS < 15 (0-50); Potassium 3.9 mmol/L (3.4-5.1); Sodium 136 mmol/L (137-145); Total Protein 6.7 g/dL (6.3-8.2)
[2023-07-19 21:01] LABS: RBC Morphology Normal Morphology
[2023-07-19] MEDS: HYDROCODONE/ACET 5/325 TABLET 1 TAB PO (21:04)
[2023-07-19] MEDS: MELATONIN 3 MG TABLET 9 MG PO (22:27)
[2023-07-19] MEDS: ALPRAZolam 0.25 MG TABLET PO (23:49)
[2023-07-20] VITALS (9 sets, daily range): BP systolic 122–176; BP diastolic 63–89; PULSE 61–87; RESP 14–24; TEMP 36.2–37; O2SAT 93–99
[2023-07-20 05:29] LABS: Add Manual Diff / Slide Review NO; Basophils Absolute Auto 0 /uL (0-100); Basophils Percent Auto 0.6 % (0-2); Eosinophils Absolute Auto 0 /uL (0-450); Eosinophils Percent Auto 0.1 % (2-4); Hematocrit 30.3 % (36-46); Hemoglobin 10.3 g/dL (12.0-16.0); Lymphocytes Absolute Auto 1400 /uL (1100-4500); Lymphocytes Percent Auto 19.6 % (25-40); Mean Corpuscular HGB Conc 33.8 % (30-36); Mean Corpuscular Hemoglobin 28.7 PG (26-34); Mean Corpuscular Volume 84.9 fL (80-100); Monocytes Absolute Auto 400 /uL (0-900); Neutrophils Absolute Auto 5100 /uL (1500-7000); Neutrophils Percent Auto 73.7 % (50-75); Platelet Count 38 X10^3/uL (150-400); Red Blood Cell Count 3.57 X10^6/uL (4.0-5.2); White Blood Cell Count 6.9 X10^3/uL (4.5-11.0)
[2023-07-20 05:31] LABS: BUN Creatinine Ratio 23.2 (6-22); Blood Urea Nitrogen 26 mg/dL (7-17); Calcium 8.7 mg/dL (8.4-10.2); Carbon Dioxide 25 mmol/L (22-32); Chloride 102 mmol/L (98-107); Estimated Glomerular Filt Rate 49 mL/min (>60); Glucose 127 mg/dL (80-110); HEMOLYSIS < 15 (0-50); Magnesium 2.4 mg/dL (1.6-2.3); Potassium 4.2 mmol/L (3.4-5.1); Sodium 131 mmol/L (137-145)
[2023-07-20 05:48] LABS: Platelet Estimate Decreased on smear; RBC Morphology Normal Morphology
[2023-07-20] MEDS: buPROPion XL 150 MG TAB PO (12:09)
--- NOTE | 2023-07-20 15:07 | CM.DPNOTE ---
DCP Note- Brief COMMUNITY RESOURCE OFFICER attempted to review EMR/print facesheet. Locked out of chart after it froze until 1500. IT made aware. Per hospitalist in morning rounds, pt here for an IT flair up. Started on wellbutrin to manage irritability. Pt has spouse with dementia. Pt plattlets are currently 38 and pt can dc home once up to 50. Per hospitalist, pt hired CGs 4Hrs 3x/week. Per chart review after IT fixed issue, pt has hx of [facility] after recent admission here. Pt lives in [facility]. Previous CM have pt information on PP CGs to assist at [facility] with her and spouse. Anticipate resumption of Sig [facility] needed. Comprehensive DCP to follow. REYMUNDO Lal
[2023-07-20 15:08] LABS: Platelet Count 16 X10^3/uL (150-400)
[2023-07-20] MEDS: GLY IV (15:54)
[2023-07-20] MEDS: IGA OV50 IV (15:54)
[2023-07-20] MEDS: ISOOSMOTIC VEHICLE IV (15:54)
[2023-07-20] MEDS: IMMUN GLOB IV (15:54)
--- NOTE | 2023-07-20 16:21 | PM.PN.1 ---
Subjective Subjective Interval history: Platelets improved to 38 K with transfusion, dropped again to 14 early this afternoon. Still complains of gum bleeding though not seen by this provider on exam. Ordered for more platelets, and IVIG. Exam Vital Signs (past 8 hours): - 07/20/23 12:00 07/20/23 12:00 07/20/23 16:00 Temperature 97.3 F L 97.1 F L Pulse Rate 87 82 Respiratory Rate 14 14 Blood Pressure 142/82 H 159/81 H Pulse Oximetry 98 96 93 Oxygen Delivery Method Room Air Oxygen Flow Rate 0 0 0 Oxygen Delivery Method Room Air Oxygen Flow Rate 0 Narrative Exam Narrative: Gen: Alert, oriented, thin and cachectic 81 y.o. ? female, NAD HEENT: normocephalic, atraumatic, conjunctiva clear, sclera non-icteric, oral mucosa pink and moist Neck: supple, full ROM, no JVD, trachea is midline Resp: Lungs CTA, non-labored breathing CV: RRR, no murmur or rubs Abd: soft, non-tender, normoactive BTs Skin: Thin and friable with multiple bruises on her upper extremities, appears dry w/poor turgor Neuro: Alert and oriented X 4 w/no focal deficits. Speech clear and coherent. Extremities: moves all 4 extremities, is ambulatory, negative Avery?s sign Psyche: normal mood and affect. Objective Labs 07/20/23 14:10 07/20/23 04:30 Labs: Laboratory Results - last 24 hr 07/19/23 07/20/23 07/20/23 07:55 04:30 14:10 WBC 10.4 6.9 RBC 3.94 L 3.57 L Hgb 11.1 L 10.3 L Hct 33.6 L 30.3 L MCV 85.3 84.9 MCH 28.1 28.7 MCHC 33.0 33.8 RDW 16.1 H 16.0 H Plt Count 4 L* 38 L 16 L* Neut % (Auto) 58.3 73.7 Lymph % (Auto) 25.8 19.6 L [place] % (Auto) 11.9 6.0 Eos % (Auto) 1.5 L 0.1 L Baso % (Auto) 2.5 H 0.6 Neut # (Auto) 6100 5100 Lymph # (Auto) 2700 1400 [place] # (Auto) 1200 H 400 Eos # (Auto) 200 0 Baso # (Auto) 300 H 0 Platelet Estimate Decreased on smear RBC Morphology Normal morphology Normal morphology PT 10.7 INR 0.9 APTT 35 Sodium 136 L 131 L Potassium 3.9 4.2 Chloride 103 102 Carbon Dioxide 29 25 BUN 23 H 26 H Creatinine 1.16 H 1.12 H Estimated GFR 47 L 49 L BUN/Creatinine Ratio 19.8 23.2 H Glucose 86 127 H Calcium 8.9 8.7 Magnesium 2.4 H Total Bilirubin 0.7 AST 22 ALT 11 Alkaline Phosphatase 88 Total Protein 6.7 Albumin 3.9 Globulin 2.8 Albumin/Globulin Ratio 1.4 Blood Type O Negative Antibody Screen Negative [facility] Medical History SVT (supraventricular tachycardia) 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 ITP flare, present on admission 2. Remote pulmonary embolism 3. Atrial flutter paroxysmal. Not present on admission are active. 4. Hypertension, present on admission and stable. 5. Severe Chronic Protein Calorie Malnutrition 6. Depression. PLAN: -per Oncology in [place], transfuse platelets and start dexamethasone 40 mg PO Daily for at least 4 days. -platelets at 4 on admission. Ordered for transfusion with improvement to 38, now to 14 shortly thereafter. -continue daily CBC -transfuse 2nd pack of platelets today after drop. Discussed with blood bank, recommended platelet alloantibody workup in case of need for further transfusions, but can take a few days to return. Will order next time. -will dose IVIG with continued drop today. 1 mg/kg daily for 1-2 doses depending on response. -if no response to IVIG discuss with heme/onc tomorrow -started 150 mg daily wellbutrin for depression after discussion with patient as SSRIs can interact with platelet function. patient is not a threat to herself or others at this time. Code: Full, surrogate is patient's spouse DVT: SCDs I have utilized all available immediate resources to obtain, update, or review the patient's current medications. Dispo: patient admitted under inpatient status. Will discharge home with improvement in Plt count, likely 2-3 days. Additional history obtained via discussions with bedside staff and case management. These discussions contributed to the creation of the above assessment and plan. I have reviewed patient's presenting documentation, labs, and imaging personally. Time Spent With Patient Time with patient: 30 to 49 minutes with 50% spent counseling/coordinating care
[2023-07-20] MEDS: MELATONIN 3 MG TABLET 9 MG PO (20:09)
[2023-07-20] MEDS: LORazepam 0.5 MG TABLET PO (20:10)
[2023-07-20] MEDS: OXYCODONE IR 5 MG TABLET PO (20:56)
[2023-07-21] VITALS (8 sets, daily range): BP systolic 121–147; BP diastolic 65–86; PULSE 66–85; RESP 16–19; TEMP 36.3–36.6; O2SAT 93–98
[2023-07-21 05:50] LABS: Add Manual Diff / Slide Review NO; Basophils Absolute Auto 200 /uL (0-100); Basophils Percent Auto 1.8 % (0-2); Eosinophils Absolute Auto 100 /uL (0-450); Eosinophils Percent Auto 0.9 % (2-4); Hematocrit 31.3 % (36-46); Hemoglobin 10.6 g/dL (12.0-16.0); Lymphocytes Absolute Auto 1700 /uL (1100-4500); Lymphocytes Percent Auto 16.1 % (25-40); Mean Corpuscular HGB Conc 33.8 % (30-36); Mean Corpuscular Hemoglobin 28.5 PG (26-34); Mean Corpuscular Volume 84.3 fL (80-100); Monocytes Absolute Auto 700 /uL (0-900); Monocytes Percent Auto 6.6 % (3-14); Neutrophils Absolute Auto 7900 /uL (1500-7000); Neutrophils Percent Auto 74.6 % (50-75); Platelet Count 99 X10^3/uL (150-400); Red Blood Cell Count 3.71 X10^6/uL (4.0-5.2); Red Cell Distribution Width 16.1 % (11.6-14.8); White Blood Cell Count 10.6 X10^3/uL (4.5-11.0)
[2023-07-21 06:06] LABS: BUN Creatinine Ratio 18.8 (6-22); Blood Urea Nitrogen 21 mg/dL (7-17); Carbon Dioxide 29 mmol/L (22-32); Chloride 104 mmol/L (98-107); Estimated Glomerular Filt Rate 49 mL/min (>60); Glucose 76 mg/dL (80-110); HEMOLYSIS < 15 (0-50); Magnesium 2.3 mg/dL (1.6-2.3); Potassium 3.9 mmol/L (3.4-5.1); Sodium 135 mmol/L (137-145)
--- NOTE | 2023-07-21 07:56 | PM.PN.1 ---
Subjective Subjective Interval history: Feels very fatigued. No nausea. PLT count up. No GUTHRIE or abdomen pain. Exam Vital Signs (past 8 hours): - 07/21/23 00:00 07/21/23 00:00 07/21/23 04:00 Temperature 97.8 F Pulse Rate 66 Respiratory Rate 18 Blood Pressure 133/86 Pulse Oximetry 98 96 95 Oxygen Delivery Method Room Air Room Air Oxygen Flow Rate 0 07/21/23 05:14 Temperature 97.5 F L Pulse Rate 85 Respiratory Rate 17 Blood Pressure 141/77 H Pulse Oximetry 93 Oxygen Delivery Method Oxygen Flow Rate 0 Oxygen Delivery Method Room Air Oxygen Flow Rate 0 Narrative Exam Narrative: NAD, alert and oriented. Fluent speech. Lungs are clear, normal rate and effort. Heart is regular, no murmur gallop or rub. Abdomen is soft, non distended. Extremities are free of edema. Many ecchymosis. Objective Labs 07/21/23 04:50 07/21/23 04:50 Labs: Laboratory Results - last 24 hr 07/19/23 07/20/23 07/21/23 07:55 14:10 04:50 WBC 10.6 D RBC 3.71 L Hgb 10.6 L Hct 31.3 L MCV 84.3 MCH 28.5 MCHC 33.8 RDW 16.1 H Plt Count 16 L* 99 L Neut % (Auto) 74.6 Lymph % (Auto) 16.1 L [place] % (Auto) 6.6 Eos % (Auto) 0.9 L Baso % (Auto) 1.8 Neut # (Auto) 7900 H Lymph # (Auto) 1700 [place] # (Auto) 700 Eos # (Auto) 100 Baso # (Auto) 200 H Sodium 135 L Potassium 3.9 Chloride 104 Carbon Dioxide 29 BUN 21 H Creatinine 1.12 H Estimated GFR 49 L BUN/Creatinine Ratio 18.8 Glucose 76 L Calcium 9.0 Magnesium 2.3 Blood Type O Negative Antibody Screen Negative [facility] Medical History SVT (supraventricular tachycardia) 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 ITP flare, present on admission 2. Remote pulmonary embolism 3. Atrial flutter paroxysmal. Not present on admission are active. 4. Hypertension, present on admission and stable. 5. Severe Chronic Protein Calorie Malnutrition 6. Depression. PLAN: -per Oncology in [place], transfuse platelets and start dexamethasone 40 mg PO Daily for at least 4 days. -second dose IVIG today. -continue prednisone -started 150 mg daily wellbutrin for depression after discussion with patient as SSRIs can interact with platelet function. patient is not a threat to herself or others at this time. Code: Full, surrogate is patient's spouse DVT: SCDs Patient admitted under inpatient status. Will discharge home with improvement in Plt count, likely 2-3 days.
[2023-07-21] MEDS: PANTOPRAZOLE DR 20 MG TABLET PO (09:05)
[2023-07-21] MEDS: buPROPion XL 150 MG TAB PO (09:05)
--- NOTE | 2023-07-21 11:38 | PC.NURSE ---
Addendum entered by Katty Florence R.N. 07/21/23 16:41: Pts IvIg infusing at 22 cc/hr. We will increase every half hour by half and not exceed a rate of 200ml/hr. She is tolerating thus far well. Original Note: Patient pleasant, she denies pain. Mayur has some bruising and purpura on her arms and legs and a chipped front tooth. She has chronic wounds on her bilateral shins that are covered up, she does go to wound care. Voices no discomfort and thankful to start Wellbutrin. Resting at this time.
[2023-07-21] MEDS: predniSONE 20 MG TABLET 40 MG PO (16:14)
[2023-07-21] MEDS: IGA OV50 IV (16:15)
[2023-07-21] MEDS: ISOOSMOTIC VEHICLE IV (16:15)
[2023-07-21] MEDS: IMMUN GLOB IV (16:15)
[2023-07-21] MEDS: GLY IV (16:15)
--- NOTE | 2023-07-21 16:31 | CM.DANOTE ---
DCP Assessment Note Pt is an 82yo F here following ITP flair up. PCP Dr. Machado Payer Medicare and Commercial ([employer]) insurance [employer] reviewed EMR. per Hospitalist in morning rounds, platelets are up. Anticipate here another few days. [employer] received call from [facility] at home instead ([phone]) and asked to be notified at patient's discharge. [employer] entered room and introduced self and role. Pt resting in bed, lives with spouse in [facility]. No longer lives at [facility]. Pt has hx of [email or web address] but does not want to resume with them. Hired PP CGs from Home instead that come to the home 3x/week for a few hours in the afternoon. She is not entire satisfied with them but interested in continuing. Pt drives at baseline and plan is for spouse to transport home. [employer] gave pt copy of [facility] booklet/other CG agency information in case pt desires different agencies. Pt denies other DCP/CM needs. Pt reports she can call home instead on her own behalf at discharge, and reported this [employer]/CM team did not have to reach out to them on her behalf. P: anticipate dc home with spouse to transport and PP CGs when medically stable. CM team will follow closely for any additional DCP needs. REYMUNDO Lal Discharge Planning/Care Management CM Discharge Assessment Start: 07/21/23 16:28 Freq: Status: Active Protocol: Document 07/21/23 16:28 (Rec: 07/21/23 16:31 [id number]) Discharge Planning Assessment Assigned Farrowing Manager REYMUNDO Whitney Advance Directives? Yes; POLST Advance Directives on File No History Provided By Patient,Medical Record Household Members spouse Type of transporation used prior to Drives own vehicle admit Independent with ADL's Yes Is patient alert and oriented? Yes Needs Assistance With Home Chores / Shopping Discharge Plan Home Transportation Arrangement Patient states spouse can transport her Referrals Initiated None needed Additional Comment Pt plans to hire a caregiver to help in the home more Whiteboard Updated in Patient Room with Yes name and ext. # of Farrowing Manager Review Status In Process Next Review Type Continued Stay Review
[2023-07-21] MEDS: MELATONIN 3 MG TABLET 9 MG PO (21:45)
[2023-07-21] MEDS: LORazepam 0.5 MG TABLET PO (21:45)
[2023-07-21] MEDS: polyethylene glycoL 3350 17 GM POWD.PACK PO (22:13)
[2023-07-21] MEDS: OXYCODONE IR 5 MG TABLET PO (22:24)
[2023-07-22] VITALS (7 sets, daily range): BP systolic 135–149; BP diastolic 72–89; PULSE 63–75; RESP 14–19; TEMP 36.2–36.4; O2SAT 95–100
[2023-07-22 05:37] LABS: BUN Creatinine Ratio 20.4 (6-22); Blood Urea Nitrogen 20 mg/dL (7-17); Calcium 8.6 mg/dL (8.4-10.2); Carbon Dioxide 29 mmol/L (22-32); Chloride 104 mmol/L (98-107); Estimated Glomerular Filt Rate 58 mL/min (>60); Glucose 108 mg/dL (80-110); HEMOLYSIS < 15 (0-50); Magnesium 2.3 mg/dL (1.6-2.3); Potassium 4.6 mmol/L (3.4-5.1); Sodium 134 mmol/L (137-145)
[2023-07-22 05:39] LABS: Add Manual Diff / Slide Review NO; Basophils Absolute Auto 100 /uL (0-100); Basophils Percent Auto 1.2 % (0-2); Eosinophils Absolute Auto 0 /uL (0-450); Hematocrit 29.2 % (36-46); Hemoglobin 9.8 g/dL (12.0-16.0); Lymphocytes Absolute Auto 800 /uL (1100-4500); Lymphocytes Percent Auto 14.6 % (25-40); Mean Corpuscular HGB Conc 33.5 % (30-36); Mean Corpuscular Hemoglobin 28.3 PG (26-34); Mean Corpuscular Volume 84.5 fL (80-100); Monocytes Absolute Auto 400 /uL (0-900); Monocytes Percent Auto 7.8 % (3-14); Neutrophils Absolute Auto 4200 /uL (1500-7000); Neutrophils Percent Auto 76.4 % (50-75); Platelet Count 49 X10^3/uL (150-400); Red Blood Cell Count 3.45 X10^6/uL (4.0-5.2); Red Cell Distribution Width 16.1 % (11.6-14.8); White Blood Cell Count 5.5 X10^3/uL (4.5-11.0)
--- NOTE | 2023-07-22 07:53 | PM.PN.1 ---
Subjective Subjective Interval history: She was still very fatigued. She denies any hemoptysis or epistaxis. No rectal bleeding. She was have a lot of ecchymosis. Her platelets are it 49k today. Exam Vital Signs (past 8 hours): - 07/22/23 00:00 07/22/23 03:02 07/22/23 04:00 Temperature 97.6 F Pulse Rate 72 Respiratory Rate 19 Blood Pressure 135/78 Pulse Oximetry 95 95 95 Oxygen Delivery Method Room Air Room Air Oxygen Flow Rate 0 0 0 Oxygen Delivery Method Room Air Oxygen Flow Rate 0 Narrative Exam Narrative: NAD, alert and oriented. Fluent speech. Lungs are clear, normal rate and effort. Heart is regular, no murmur gallop or rub. Abdomen is soft, non distended. Extremities are free of edema. Extensive ecchymosis over both arms. Objective Labs 07/22/23 04:30 07/22/23 04:30 Labs: Laboratory Results - last 24 hr 07/22/23 04:30 WBC 5.5 RBC 3.45 L Hgb 9.8 L Hct 29.2 L MCV 84.5 MCH 28.3 MCHC 33.5 RDW 16.1 H Plt Count 49 L Neut % (Auto) 76.4 H Lymph % (Auto) 14.6 L [place] % (Auto) 7.8 Eos % (Auto) 0.0 L Baso % (Auto) 1.2 Neut # (Auto) 4200 Lymph # (Auto) 800 L [place] # (Auto) 400 Eos # (Auto) 0 Baso # (Auto) 100 Sodium 134 L Potassium 4.6 Chloride 104 Carbon Dioxide 29 BUN 20 H Creatinine 0.98 Estimated GFR 58 L BUN/Creatinine Ratio 20.4 Glucose 108 Calcium 8.6 Magnesium 2.3 PFSH Medical History SVT (supraventricular tachycardia) 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 ITP flare, present on admission 2. Remote pulmonary embolism 3. Atrial flutter paroxysmal. Not present on admission are active. 4. Hypertension, present on admission and stable. 5. Severe Chronic Protein Calorie Malnutrition 6. Depression. PLAN: -per Oncology in [place], transfuse platelets and start dexamethasone 40 mg PO Daily for at least 4 days. -second dose IVIG 07/20. -continue prednisone -started 150 mg daily wellbutrin for depression after discussion with patient as SSRIs can interact with platelet function. patient is not a threat to herself or others at this time. -she wants to resume care at [facility], did send a message to her previous clerk funeral detail Dr. Yanez today. -physical therapy evaluation. She requires another night of medical care monitoring of response of platelets. Physical therapy evaluation today as well. Code: Full, surrogate is patient's spouse DVT: SCDs Patient admitted under inpatient status. Will discharge home with improvement in Plt count, likely 2-3 days. Signed By:<Electronically signed by Omari Bo MD> 07/21/23 [id number]
[2023-07-22] MEDS: buPROPion XL 150 MG TAB PO (08:45)
[2023-07-22] MEDS: PANTOPRAZOLE DR 20 MG TABLET PO (08:45)
[2023-07-22] MEDS: predniSONE 20 MG TABLET 40 MG PO (08:45)
--- NOTE | 2023-07-22 09:08 | PC.NURSE ---
Addendum entered by Katty Florence R.N. 07/22/23 11:27: Patient upset because her iv still in. Asked if it could be taken out and he agreed. IV to r.forearm taken out. Patient tolerated this well. Original Note: Patient is in good spirits this morning, she denies pain and ate all of her breakfast. Bilateral lower legs are both dressed as patient has chronic wounds on her legs. She also has purpura on her arms and lots of bruising. Platelets are low at 49, she is resting in bed now.
--- NOTE | 2023-07-22 15:30 | PT.IIE ---
Current Diagnoses Immune thrombocytopenic purpura (07/19/23) Surgical History (Last Reviewed 07/21/23 @ 07:56 by Omari Bo MD) History of splenectomy History of tonsillectomy Status post hysterectomy Medical History (Last Reviewed 07/21/23 @ 07:56 by Omari Bo MD) Anxiety Atrial flutter Chronic ITP (idiopathic thrombocytopenic purpura) Chronic steroid use Hypertension Microscopic hematuria Osteoporosis Pulmonary embolism and infarction Scoliosis SVT (supraventricular tachycardia) Physical Therapy Inpatient Evaluation/Re-Eval M1 PT/OT-IP Prior Functional Status Start: 07/22/23 16:19 Freq: NEEDED Status: Active Protocol: Document 07/22/23 15:30 AB (Rec: 07/22/23 16:34 AB [id number]) Medical Review Prior Functional Status Medical History Reviewed Yes Communication able to make needs known Mobility and Gait pt stated that she was modified independent with all mobilities and ambulation without AD but uses a FWW at night Social History Household Members spouse Living Arrangements House Number of Floors (Floors) 3 or More Floors Number of Stairs To Enter/Railing? pt lives on a split level house: has 7 steps +landing +7 steps B rails to get to main living area Home Environment Standard Height Toilet,Tub/ Shower Home Equipment Front Wheel Walker Additional Social History Comment pt stated that she hired a caregiver that should come in 3x/week for 3-6 hours a day pt stated that spouse is 90+ y /o and is also sick right now and is limited to the assistance he can provide pt. M2 PT-IP Current Condition Start: 07/22/23 16:19 Freq: NEEDED Status: Active Protocol: Document 07/22/23 15:30 AB (Rec: 07/22/23 16:34 AB [id number]) Physical Therapy Current Condition Current Condition Evaluation Date 07/22/23 Treatment Diagnosis ITP; generalized weakness Onset Date 07/19/23 M3 PT-IP Subjective Start: 07/22/23 16:19 Freq: NEEDED Status: Active Protocol: Document 07/22/23 15:30 AB (Rec: 07/22/23 16:34 AB [id number]) Subjective Physical Therapy Visit Type Type Initial Evaluation Visit Start Time 15:30 Visit Stop Time 16:25 Number of PASSENGER FLAGMAN Visits 0 Physical Therapy Visit Comments Patient Comments agreeable to do PT M4 PT-IP Mobility and Gait Start: 07/22/23 16:19 Freq: NEEDED Status: Active Protocol: Document 07/22/23 15:30 AB (Rec: 07/22/23 16:34 AB [id number]) PT-Bed Mobility Assessment Sit to Supine Sit to Supine Standby Assistance PT-Transfer Assessment Sit to and From Stand Sit to and from Stand Standby Assistance Equipment Transfer Assistive Device None Orthotic/Prosthetic Devices or Brace: No Transfers Transfer Destination Bed Transfer Technique ambulated Transfer Ability Level of Assist Standby Assistance,1 Person Assistance,Use of Upper Extremities Comments Mobility Comments pt was using the toilet and was just walking out from the toilet. nurse staff was with pt prior to PT. pt ambulated from the toilet to the sink without AD SBA. unsteady gait and pt tends to hold on to the wall/counter for support. pt was able to maintain standing next to the SBA while completing handwashing. pt ambulated to the EOB. pt stated that she is tired. obtained PLOF and home set up from pt. pt agreed to do stairs. positioned step stool next to foot board and FWW on the other side to simulate B rails. pt completed up/down step stool B supports SBA. pt repeated x 5 reps. pt ambulated back EOB. completed supine to sit SBA. positioned pt in bed. call light and table placed within reach. Gait Assessment Gait Gait Assistance Required: Standby Assistance Distance (Feet) 35 Able to Maintain Weight Bearing Status Yes During Gait Assistive Devices Assistive Device None Orthotic/Prosthetic Devices or Brace: No Gait Deviations General Gait Pattern Decreased Stride Length, Decreased Feet Clearance Factors Limiting Gait Function Factors Limiting Gait Function Decreased Activity Tolerance, Decreased Strength,Poor Safety Awareness Stair Climbing Assessment Evaluation Level of Assist On Stairs Standby Assistance Devices Stair Climbing Assistive Devices Left Railing,Right Railing Technique/Endurance Stair Climbing Direction Ascend and Descend Stair Climbing Technique Step to Step Number of Steps Climbed 1 Query Text: Stair Climbing Set # Repetitions (reps) 5 Comments Stair Climbing Comments pls refer to mobility section for details PT-Balance Assessment Sitting Balance and Reactions Static Sitting Balance Ability Normal Dynamic Sitting Balance Ability Good Standing Balance and Reactions Static Standing Balance Ability Good Dynamic Standing Balance Ability Fair Device Used without AD M5 PT-IP Objective Assessments Start: 07/22/23 16:19 Freq: NEEDED Status: Active Protocol: Document 07/22/23 15:30 AB (Rec: 07/22/23 16:34 AB [id number]) Orientation Orientation/Cognition Level of Alertness Alert Orientation Name,Place,Situation Language Function Ability No Deficits Noted Safety Awareness Decreased Safety Awareness Memory Description Short Term Impaired Gross Range of Motion Lower Extremity ROM Assessment Within Functional Limits Strength Lower Extremity Strength Assessment Within Functional Limits Coordination Assessment Gross Coordination Gross Coordination WNL Muscle Tone Muscle Tone WNL Yes M6 PT-IP Treatment Start: 07/22/23 16:19 Freq: NEEDED Status: Active Protocol: Document 07/22/23 15:30 AB (Rec: 07/22/23 16:34 AB [id number]) Physical Therapy Treatment Education Education Provided Safety M7 PT-IP Assessment and Plan Start: 07/22/23 16:19 Freq: NEEDED Status: Active Protocol: Document 07/22/23 15:30 AB (Rec: 07/22/23 16:34 AB [id number]) PT Summary Assessment and Plan Potential Rehabilitation Potential Fair Status of Condition at Evaluation Evolving Summary Impairments Pain,ROM,Strength,Balance, Cognition,Bed Mobility, Transfers,Gait,Activity Tolerance Assessment Summary pt is an 82 y/o F who presented to the ED for gum bleeding. pt has ITP and is admitted to the hospital. pt requiring SBA with mobility without AD but has decrease activity tolerance with c/o fatigue after ambulating from the toilet. pt lives with spouse and has hired a caregiver to come in 3x/week to assist her. pt may go home when medically stable and will benefit from HHPT. Goals Bed Mobility Goal Independent Transfer Goal Independent Gait Goal Independent Gait Distance 150 Other Goals up/down 15 steps B rails SBA Days to Meet Goals 10 Frequency of Treatment Frequency Of Treatment Once a Day Treatment Plan Physical Therapy Treatment Plan Bed Mobility Training,Transfer Training,Gait Training, Therapeutic Exercise,Balance Retraining,Discharge Planning, Hot or Cold Pack,Neuromuscular Re-ed,Coordination Retraining Recommendations To Nursing Amount of Assist Needed Standby Assistance Discharge Recommendations PT Discharge Recommendations Home with Assistance,Home Health Transportation Needs at Discharge Private Vehicle
--- NOTE | 2023-07-22 15:56 | CM.DPNOTE ---
DCP Note SUPERVISOR BOTTLE [employer]ACHINES reviewed EMR. Per hospitalist, pt platelets dropped today, will keep another day or so to monitor. PT eval pending. Per RN/provider, no new obvious DCP/CM needs identified at this time. P: anticipate dc home with spouse to transport and PP CGs when medically stable. CM team will follow closely for any additional DCP needs. REYMUNDO Lal
[2023-07-22] MEDS: MELATONIN 3 MG TABLET 9 MG PO (20:47)
[2023-07-22] MEDS: LORazepam 0.5 MG TABLET PO (20:47)
[2023-07-22] MEDS: OXYCODONE IR 5 MG TABLET PO (20:47)
[2023-07-22] MEDS: polyethylene glycoL 3350 17 GM POWD.PACK PO (20:52)
[2023-07-23] VITALS: BP 144/80; PULSE 75; RESP 18; TEMP 36.4; O2SAT 100
[2023-07-23 04:00] VITALS: BP 125/50; PULSE 98; RESP 19; TEMP 36.6; O2SAT 95
[2023-07-23 08:00] VITALS: BP 169/98; PULSE 75; RESP 18; TEMP 36.6; O2SAT 96; O2SAT 97
[2023-07-23] MEDS: buPROPion XL 150 MG TAB PO (09:56)
[2023-07-23] MEDS: predniSONE 20 MG TABLET 40 MG PO (09:56)
[2023-07-23] MEDS: PANTOPRAZOLE DR 20 MG TABLET PO (09:56)
[2023-07-23 10:11] LABS: Hematocrit 35.7 % (36-46); Hemoglobin 11.9 g/dL (12.0-16.0); Mean Corpuscular HGB Conc 33.3 % (30-36); Mean Corpuscular Hemoglobin 28.3 PG (26-34); Platelet Count 51 X10^3/uL (150-400); Red Cell Distribution Width 16.7 % (11.6-14.8); White Blood Cell Count 9.9 X10^3/uL (4.5-11.0)
--- NOTE | 2023-07-23 11:27 | PM.PN.1 ---
Subjective Subjective Interval history: She feels very fatigued and unsteady. She does not feel ready to return home. [place] [address]. She was on prednisone and had 2 doses of IVIG. Exam Vital Signs (past 8 hours): - 07/23/23 04:00 07/23/23 04:00 07/23/23 08:00 Temperature 97.8 F 97.9 F Pulse Rate 98 H 75 Respiratory Rate 19 18 Blood Pressure 125/50 L 169/98 H Pulse Oximetry 95 95 97 Oxygen Delivery Method Room Air Oxygen Flow Rate 0 0 Oxygen Delivery Method Room Air Oxygen Flow Rate 0 Narrative Exam Narrative: NAD, alert and oriented. Fluent speech. Lungs are clear, normal rate and effort. Heart is regular, no murmur gallop or rub. Abdomen is soft, non distended. Extremities are free of edema. A lot of ecchymosis over arms and legs. Objective Labs 07/23/23 09:53 07/22/23 04:30 Labs: Laboratory Results - last 24 hr 07/23/23 09:53 WBC 9.9 D RBC 4.20 Hgb 11.9 L Hct 35.7 L MCV 85.0 MCH 28.3 MCHC 33.3 RDW 16.7 H Plt Count 51 L PFSH Medical History SVT (supraventricular tachycardia) 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 ITP flare, present on admission and improving. 2. Remote pulmonary embolism, stable. Declines anticoagulation. 3. Atrial flutter paroxysmal. Not present on admission and active. 4. Hypertension, present on admission and stable. 5. Severe Chronic Protein Calorie Malnutrition 6. Depression. PLAN: -per Oncology in [place], transfuse platelets and start dexamethasone 40 mg PO Daily for at least 4 days. -second dose IVIG 07/20. No further, improved PLT. -continue prednisone -started 150 mg daily wellbutrin for depression after discussion with patient as SSRIs can interact with platelet function. patient is not a threat to herself or others at this time. -she wants to resume care at [facility], did send a message to her previous mechanical drawing teacher Dr. Yanez . He agrees to see her and will set up an OP appt) -physical therapy evaluation. She requires another night of medical care monitoring of response of platelets. Discharge 07/23. HH PT/OT/RN and lab draws (CBC BIW) Homebound due to gait instability and high risk for bleed if she were to fall due to thrombocytopenia. Code: Full, surrogate is patient's spouse DVT: SCDs
--- NOTE | 2023-07-23 11:46 | PT.IPTN ---
Current Diagnoses Immune thrombocytopenic purpura (07/19/23) Physical Therapy Treatment Note M2 PT-IP Current Condition Start: 07/22/23 16:19 Freq: NEEDED Status: Active Protocol: Document 07/22/23 15:30 AB (Rec: 07/22/23 16:34 AB [id number]) Physical Therapy Current Condition Current Condition Evaluation Date 07/22/23 Treatment Diagnosis ITP; generalized weakness Onset Date 07/19/23 M3 PT-IP Subjective Start: 07/22/23 16:19 Freq: NEEDED Status: Active Protocol: Document 07/23/23 12:18 TS (Rec: 07/23/23 12:25 TS [id number]) Subjective Physical Therapy Visit Type Type Treatment Note Visit Start Time 11:46 Visit Stop Time 12:01 Number of DIGITAL MEDIA ANALYST Visits 1 Physical Therapy Visit Comments Patient Comments Pt found sitting EOB, is agreeable to PT. M4 PT-IP Mobility and Gait Start: 07/22/23 16:19 Freq: NEEDED Status: Active Protocol: Document 07/23/23 12:18 TS (Rec: 07/23/23 12:25 TS [id number]) PT-Transfer Assessment Sit to and From Stand Sit to and from Stand Standby Assistance Equipment Transfer Assistive Device None Orthotic/Prosthetic Devices or Brace: No Comments Mobility Comments STS from bed SBA with no AD, pt reaches for rail of bed for balance support. She ambulated in room ~ 100' SBA with no AD, pt reaches for burnett for burnett or counter at times for support. She performed steps x10 with single rail SBA, pt had x1 LOB stepping down. Pt was left back in bed all needs met. Gait Assessment Gait Gait Assistance Required: Standby Assistance Distance (Feet) 100 Able to Maintain Weight Bearing Status Yes During Gait Assistive Devices Assistive Device None Orthotic/Prosthetic Devices or Brace: No Gait Deviations General Gait Pattern Decreased Stride Length, Decreased Feet Clearance Factors Limiting Gait Function Factors Limiting Gait Function Decreased Activity Tolerance, Decreased Strength,Poor Safety Awareness Stair Climbing Assessment Evaluation Level of Assist On Stairs Standby Assistance Devices Stair Climbing Assistive Devices Left Railing Technique/Endurance Stair Climbing Direction Ascend and Descend Stair Climbing Technique Step to Step Number of Steps Climbed 1 Stair Climbing Set # Repetitions (reps) 10 PT-Balance Assessment Sitting Balance and Reactions Static Sitting Balance Ability Normal Dynamic Sitting Balance Ability Good Standing Balance and Reactions Static Standing Balance Ability Good Dynamic Standing Balance Ability Fair Device Used without AD M5 PT-IP Objective Assessments Start: 07/22/23 16:19 Freq: NEEDED Status: Active Protocol: Document 07/22/23 15:30 AB (Rec: 07/22/23 16:34 AB [id number]) Orientation Orientation/Cognition Level of Alertness Alert Orientation Name,Place,Situation Language Function Ability No Deficits Noted Safety Awareness Decreased Safety Awareness Memory Description Short Term Impaired Gross Range of Motion Lower Extremity ROM Assessment Within Functional Limits Strength Lower Extremity Strength Assessment Within Functional Limits Coordination Assessment Gross Coordination Gross Coordination WNL Muscle Tone Muscle Tone WNL Yes M6 PT-IP Treatment Start: 07/22/23 16:19 Freq: NEEDED Status: Active Protocol: Document 07/23/23 12:18 TS (Rec: 07/23/23 12:25 TS [id number]) Physical Therapy Treatment Education Education Provided Safety M7 PT-IP Assessment and Plan Start: 07/22/23 16:19 Freq: NEEDED Status: Active Protocol: Document 07/23/23 12:18 TS (Rec: 07/23/23 12:25 TS [id number]) PT Summary Assessment and Plan Potential Rehabilitation Potential Fair Summary Impairments Pain,ROM,Strength,Balance, Cognition,Bed Mobility, Transfers,Gait,Activity Tolerance Progress Towards Goals Progressing Toward Goals Assessment Summary Mayur continues to do well with her mobility. She is SBA for STS with no AD. She progressed her gait to ~100SBA with no AD. She has some unsteadiness and recommended she use a cane or FWW, pt reports having AD's at home. She progressed stairs to x10 with no single rail, had x1LOB stepping down backwards step. PT is recommending home with assist and HHPT. Goals Bed Mobility Goal Independent Transfer Goal Independent Gait Goal Independent Gait Distance 150 Other Goals up/down 15 steps B rails SBA Days to Meet Goals 10 Frequency of Treatment Frequency Of Treatment Once a Day Treatment Plan Physical Therapy Treatment Plan Bed Mobility Training,Transfer Training,Gait Training, Therapeutic Exercise,Balance Retraining,Discharge Planning, Hot or Cold Pack,Neuromuscular Re-ed,Coordination Retraining Other Recommendations and Next Treatment Balance, gait, stairs Focus Recommendations To Nursing Amount of Assist Needed Standby Assistance Discharge Recommendations PT Discharge Recommendations Home with Assistance,Home Health Transportation Needs at Discharge Private Vehicle
[2023-07-23 12:00] VITALS: BP 139/77; PULSE 83; RESP 20; TEMP 36.3; O2SAT 95; O2SAT 99
--- NOTE | 2023-07-23 14:32 | CM.DPNOTE ---
DCP Cont Discharge anticipated tomorrow, home with spouse, caregiver through [facility]. Dr Bo recommends HH RN/PT/OT. Discussed with patient; patient prefers not to have [facility] again. Reviewed list and patient requests [facility]. F2F and HH order completed. ERLIN Mueller, has initiated this referral and patient has been confirmed/accepted onto services. Plan: Discharge home anticipated tomorrow, home w/spouse and [facility] RN/PT/OT. Close outpatient follow up. SHAHLA
[2023-07-23 16:00] VITALS: BP 151/86; PULSE 112; RESP 18; TEMP 36.2; O2SAT 95; O2SAT 96
--- NOTE | 2023-07-23 18:35 | PC.NURSE ---
Day shift: pt A&Ox4, suspicious of care. Tolerated meals. Pt stated, The doctor wants to send me home so I can . Pt reeducated on plan of care, follow up lab results for the morning, plan of care to add home health services prior to discharge. Pt states, no, he said I can't have platelets ever again in my life. Pt educated on her current status and platelet count. Stated provider did not get in touch with collision estimator. Provider notified. Pt called security and ED administration, stating provider is, doing funny stuff. Security at room. Provider stood by doorway, discussing plan of care with pt. Provider showed evidence to pt of [employer] chart chat with pt's collision estimator at [facility]. Pt states it is fabricated. Pt appearing suspicious of care. Provider educated pt on plan of care again. Pt eating dinner, care ongoing, will continue to monitor.
[2023-07-23 20:00] VITALS: BP 155/105; PULSE 69; RESP 18; TEMP 36.3; O2SAT 97
[2023-07-23] MEDS: MELATONIN 3 MG TABLET 9 MG PO (21:06)
[2023-07-23] MEDS: polyethylene glycoL 3350 17 GM POWD.PACK PO (21:06)
[2023-07-23] MEDS: LORazepam 0.5 MG TABLET 1 MG PO (21:06)
[2023-07-23] MEDS: OXYCODONE IR 5 MG TABLET PO (21:07)
[2023-07-24] VITALS (7 sets, daily range): BP systolic 151–184; BP diastolic 90–110; PULSE 63–111; RESP 17–20; TEMP 36.3–36.6; O2SAT 97–100
[2023-07-24 05:27] LABS: Hematocrit 31.3 % (36-46); Hemoglobin 10.6 g/dL (12.0-16.0); Mean Corpuscular HGB Conc 33.9 % (30-36); Mean Corpuscular Hemoglobin 28.4 PG (26-34); Mean Corpuscular Volume 83.7 fL (80-100); Red Blood Cell Count 3.74 X10^6/uL (4.0-5.2); Red Cell Distribution Width 16.2 % (11.6-14.8); White Blood Cell Count 10.6 X10^3/uL (4.5-11.0)
[2023-07-24 05:37] LABS: Platelet Count 41 X10^3/uL (150-400)
[2023-07-24 05:43] LABS: BUN Creatinine Ratio 32.3 (6-22); Blood Urea Nitrogen 32 mg/dL (7-17); Calcium 8.9 mg/dL (8.4-10.2); Carbon Dioxide 27 mmol/L (22-32); Chloride 104 mmol/L (98-107); Estimated Glomerular Filt Rate 57 mL/min (>60); Glucose 83 mg/dL (80-110); HEMOLYSIS < 15 (0-50); Potassium 3.9 mmol/L (3.4-5.1); Sodium 136 mmol/L (137-145)
--- NOTE | 2023-07-24 09:00 | PT.IPTN ---
Current Diagnoses Immune thrombocytopenic purpura (07/19/23) Physical Therapy Treatment Note M2 PT-IP Current Condition Start: 07/22/23 16:19 Freq: NEEDED Status: Active Protocol: Document 07/22/23 15:30 AB (Rec: 07/22/23 16:34 AB [id number]) Physical Therapy Current Condition Current Condition Evaluation Date 07/22/23 Treatment Diagnosis ITP; generalized weakness Onset Date 07/19/23 M3 PT-IP Subjective Start: 07/22/23 16:19 Freq: NEEDED Status: Active Protocol: Document 07/24/23 10:50 TS (Rec: 07/24/23 10:58 TS [id number]) Subjective Physical Therapy Visit Type Type Treatment Note Visit Start Time 09:00 Visit Stop Time 09:24 Number of FACILITIES CLERK Visits 2 Physical Therapy Visit Comments Patient Comments Pt found sitting EOB, reports feeling tired and would like to know her platelet count. Pt is agreeable to PT. M4 PT-IP Mobility and Gait Start: 07/22/23 16:19 Freq: NEEDED Status: Active Protocol: Document 07/24/23 10:50 TS (Rec: 07/24/23 10:58 TS [id number]) PT-Transfer Assessment Sit to and From Stand Sit to and from Stand Standby Assistance Equipment Transfer Assistive Device None Orthotic/Prosthetic Devices or Brace: No Comments Mobility Comments STS from bed SBA with no AD. Pt ambulated in room/hallway SBA/CGA with no AD. x1LOB with gait, requires CGA for balance. Stairs x5 with single rail on step stool, no LOB. Pt was left sitting EOB, all needs met. Gait Assessment Gait Gait Assistance Required: Standby Assistance Distance (Feet) 250 Able to Maintain Weight Bearing Status Yes During Gait Assistive Devices Assistive Device None Orthotic/Prosthetic Devices or Brace: No Gait Deviations General Gait Pattern Decreased Stride Length, Decreased Feet Clearance Factors Limiting Gait Function Factors Limiting Gait Function Decreased Activity Tolerance, Decreased Strength,Poor Safety Awareness Comments Gait Comments See mobility comments Stair Climbing Assessment Evaluation Level of Assist On Stairs Standby Assistance Devices Stair Climbing Assistive Devices Left Railing Technique/Endurance Stair Climbing Direction Ascend and Descend Stair Climbing Technique Step to Step Number of Steps Climbed 1 Stair Climbing Set # Repetitions (reps) 5 PT-Balance Assessment Sitting Balance and Reactions Static Sitting Balance Ability Normal Dynamic Sitting Balance Ability Good Standing Balance and Reactions Static Standing Balance Ability Good Dynamic Standing Balance Ability Fair Device Used without AD M5 PT-IP Objective Assessments Start: 07/22/23 16:19 Freq: NEEDED Status: Active Protocol: Document 07/22/23 15:30 AB (Rec: 07/22/23 16:34 AB [id number]) Orientation Orientation/Cognition Level of Alertness Alert Orientation Name,Place,Situation Language Function Ability No Deficits Noted Safety Awareness Decreased Safety Awareness Memory Description Short Term Impaired Gross Range of Motion Lower Extremity ROM Assessment Within Functional Limits Strength Lower Extremity Strength Assessment Within Functional Limits Coordination Assessment Gross Coordination Gross Coordination WNL Muscle Tone Muscle Tone WNL Yes M6 PT-IP Treatment Start: 07/22/23 16:19 Freq: NEEDED Status: Active Protocol: Document 07/24/23 10:50 TS (Rec: 07/24/23 10:58 TS [id number]) Physical Therapy Treatment Education Education Provided Safety M7 PT-IP Assessment and Plan Start: 07/22/23 16:19 Freq: NEEDED Status: Active Protocol: Document 07/24/23 10:50 TS (Rec: 07/24/23 10:58 TS [id number]) PT Summary Assessment and Plan Potential Rehabilitation Potential Fair Summary Impairments Pain,ROM,Strength,Balance, Cognition,Bed Mobility, Transfers,Gait,Activity Tolerance Progress Towards Goals Progressing Toward Goals Assessment Summary Mayur continues to make progress with her mobility. She progressed her gait to ~ 250'SBA with no AD. She continues to have LOB and requires CGA and wall support. Educated pt on use of AD, pt agreed to use cane. PT continues to recommend home with assist and HHPT. Goals Bed Mobility Goal Independent Transfer Goal Independent Gait Goal Independent Gait Distance 150 Other Goals up/down 15 steps B rails SBA Days to Meet Goals 10 Frequency of Treatment Frequency Of Treatment Once a Day Treatment Plan Physical Therapy Treatment Plan Bed Mobility Training,Transfer Training,Gait Training, Therapeutic Exercise,Balance Retraining,Discharge Planning, Hot or Cold Pack,Neuromuscular Re-ed,Coordination Retraining Recommendations To Nursing Amount of Assist Needed Standby Assistance Discharge Recommendations PT Discharge Recommendations Home with Assistance,Home Health Transportation Needs at Discharge Private Vehicle
[2023-07-24] MEDS: predniSONE 20 MG TABLET 40 MG PO (09:34)
--- NOTE | 2023-07-24 10:23 | DIET.CONS ---
Dietary Consultation Note Admission Date: 07/19/2023 12:48 Assessment: 82 y F admitted for ITP flare up. Nutrition screened for LOS day 5. Met with pt at bedside who reports improved appetite but difficulty with meal prep at home. Has now automobile body repairer helper for cooking and cleaning who will prepare 3 meals a day for her. Reports continued recent weight loss, with weight being down to 46.36 kg. Diet recall: B-cereal or eggs D-Frozen meal Sometimes Ensure, doesn't like the taste but will drink if mixed with other components Patient denied a NFPE at this time. NFPE previously done on 05/18. Ht: 165.1 cm Wt: 47.627 kg BMI: 17.5 UBW: 53.524 kg on 03/18/23 (-11% weight in 4 months, severe) Last BM: 07/23/23 (07/23/23 06:00) MNA: MNA not completed and BMI not listed/incorrect on screening page Robert Score: 23 Diet: 07/19/23 Dinner General (Regular) Diet Diet Modifications: Nutrition Percent Meal Consumed 100% 07/23/23 18:00 Percent Meal Consumed 75% 07/23/23 13:15 Percent Meal Consumed 75% 07/22/23 18:00 Percent Meal Consumed 25% 07/22/23 13:27 Labs: RBC 3.74 X10^6/uL (4.0-5.2) L 07/24/23 04:40 Hgb 10.6 g/dL (12.0-16.0) L 07/24/23 04:40 Hct 31.3 % (36-46) L 07/24/23 04:40 Creatinine 0.99 mg/dL (0.52-1.04) 07/24/23 04:40 Nutrition Diagnosis: Severe Chronic Protein Calorie Malnutrition r/t to decreased ability to cook/prepare foods as evidenced by <75% estimated energy needs for 3 months per diet recall, severe, 11% weight loss in 4 months, severe, and BMI 17.5 (underweight for age). Interventions: 1. Discussed consistent snacks between meals that will be prepared for her to support weight gain 2. Coordinated with unit host/kitchen for ONS daily or BID in form of smoothie EER: [id number] kcals (33-35 kcals/kg per BMI) 65-75 g protein (1.5 g/kg per malnutrition) Monitoring/Evaluations: po intakes Electronically Signed by: Germania Tadeo 07/24/23 10:23 Clinical Dietitian [address] [id number]
--- NOTE | 2023-07-24 10:27 | P.DS_ITS ---
History of Present Illness History of Present Illness Date Patient Seen: 07/24/23 Time Patient Seen: 10:27 Chief complaint: spitting out blood Narrative: The patient is an 82-year-old female with history of ITP who is on chronic steroids. She also has had atrial fibrillation and hypertension. She presents today oozing and bleeding from her mouth. the patient receives NPlate (Romiplostin) injections weekly but had skipped a dose recently. The emergency physician discussed the case with Oncology in [place]. Recommendations were to restart dexamethasone 40 mg PO daily x at least 4 days and transfuse platelets.If bleeding can also do IVIG. She has been dealing with ITP since 2006. She is DNR, and has filled out a pulsed staying this in the past. She lives in [place] in a group home center and her lives nearby and they are previous home. Discharge Providers Provider Date of admission: 07/19/23 12:48 Discharge Date: 07/24/23 Primary care physician: Jayson Machado MD Consults: 07/22/23 12:55 Consult to Physical Therapy Evaluate & Treat Comment: Physician Instructions: Evaluate and Treat 07/23/23 11:46 Consult to Home Health Routine Comment: Reason For Exam: Home health RN/PT/OT upon discharge Discharge provider: Thomas Lyons DO Summary Hospital Course Discharge Diagnosis: 1. ITP flare, present on admission and improving. 2. Remote pulmonary embolism, stable. Declines anticoagulation. 3. Atrial flutter paroxysmal. Not present on admission and active. 4. Hypertension, present on admission and stable. 5. Severe Chronic Protein Calorie Malnutrition 6. Depression. Hospital Course: 82 F admitted with gum bleeding, easy bruising with ITP flare after stopping some of her chronic medications. Patient has previous SLUMS of , and story would change at times. At times patient was very demanding and dismissive of the knowledge of the staff, and did admit this is in part due to anxiety about her condition. She also endorsed, decreased appetite, increased caregiver stress, and depressed mood and some passive suicidal ideations. She was started on wellbutrin after discussion with her, as SSRIs can interfere with platelet function this was chosen instead. She was not felt to be a threat to herself or others at this time. She was treated for ITP flare with 2 transfusions of platelets, along with dexamethasone 40 mg PO for 4 days and IVIG for 2 doses. She was then transitioned to oral prednisone. Platelets have remained between 40-50 with no ongoing signs or symptoms of bleeding. She was discharged home at that time with home health for assistance with bi-weekly lab draws. She wishes to transition care back to [facility] with Dr. Renteria from [facility], which was coordinated by hospitalist during the week of 07/21. She will continue on prednisone 40 mg daily for at least another 2 weeks, with prolonged taper to be continued by outpatient impression printer. Time Spent with Patient Time spent: Greater than 30 minutes Exam Vital Signs (past 8 hours): - 07/24/23 04:00 07/24/23 04:00 07/24/23 05:29 Temperature 97.4 F L Pulse Rate 63 Respiratory Rate 17 Blood Pressure 175/101 H 158/92 H Pulse Oximetry 100 100 Oxygen Delivery Method Room Air Oxygen Flow Rate 0 07/24/23 07:58 Temperature 97.3 F L Pulse Rate 111 H Respiratory Rate 19 Blood Pressure 184/110 H Pulse Oximetry 98 Oxygen Delivery Method Oxygen Flow Rate 0 Oxygen Delivery Method Room Air Oxygen Flow Rate 0 Narrative Exam Narrative: NAD, alert and oriented. Fluent speech. Lungs are clear, normal rate and effort. Heart is regular, no murmur gallop or rub. Abdomen is soft, non distended. Extremities are free of edema. A lot of ecchymosis over arms and legs which are stable. 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 Continue prednisone, taper with help of hematology. Continue lab draws, home health ordered. Discharge orders & Medications Prescriptions: New prednisone 20 mg Tablet 40 mg PO DAILY 14 Days Qty: 28 0RF bupropion HCl [Wellbutrin XL] 150 mg Tablet Extended Release 24 Hr 150 mg PO DAILY 90 Days Qty: 90 0RF Continued polyethylene glycol 3350 [Miralax] 17 GM powder in packet 17 gm PO BEDTIME Qty: 0 estradiol 0.01 % (0.1 mg/gram) cream 2 g vaginal 2XW Patient Comments: takes sundays and wednesdays vitamin B complex Tablet 1 tab PO DAILY cholecalciferol (vitamin D3) [Vitamin D3] 25 mcg (1,000 unit) Capsule 1 mcg PO DAILY Adults Multivitamin 18 mg iron-400 mcg-25 mcg Tablet 1 tab PO DAILY melatonin 3 mg Capsule 6 mg PO BEDTIME furosemide 20 mg tablet 10 mg PO DAILY metoprolol succinate 25 mg tablet extended release 24 hr 25 mg PO DAILY pantoprazole 20 mg Tablet,Delayed Release (Dr/Ec) 20 mg PO DAILY@0600 PRN (Reason: Dyspepsia) oxycodone 5 mg tablet 5 mg PO Q6H PRN (Reason: pain) Qty: 15 0RF Follow up/Referrals: Jayson Machado MD [Primary Care Provider] - Diet/Activity/Treatments Diet: Diet as Tolerated and Regular Activity: As tolerated, no restrictions. Visit Report/Discharge Packet Stand Alone Forms: Patient Portal/API, Stroke Signs & Symptoms Discharge Data Primary Care Provider: Jayson Machado
[2023-07-24] MEDS: buPROPion XL 150 MG TAB PO (10:42)
[2023-07-24] MEDS: PANTOPRAZOLE DR 20 MG TABLET PO (10:43)
--- NOTE | 2023-07-24 11:30 | DI.RAD.S_ITS ---
PROCEDURE: XR CHEST 2V INDICATIONS: chest pain TECHNIQUE: 2 views of the chest were acquired. COMPARISON: [facility], CR, XR CHEST 1V, 06/30/2023, 11:17. FINDINGS: Surgical changes and devices: None. Lungs and pleura: Ill-defined density in the right upper lobe/apex. Right hemidiaphragm elevation. No pleural effusions or pneumothorax. Mediastinum: Mediastinal contours are normal. Heart size is normal. Bones and chest wall: Scoliosis. No suspicious bony abnormalities. Soft tissues appear unremarkable. IMPRESSION: Ill-defined density in the right upper lobe/apex. Recommend chest CT for further evaluation. Dictated by: Theresa Ochoa M.D. on 07/24/2023 at 11:11 Approved by: Theresa Ochoa M.D. on 07/24/2023 at 11:13
[2023-07-24] MEDS: FUROSEMIDE 20 MG TABLET 10 MG PO (11:38)
--- NOTE | 2023-07-24 11:46 | EKG_ITS ---
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
[2023-07-24] MEDS: CYCLOBENZAPRINE 10 MG TABLET 5 MG PO (11:59)
[2023-07-24] MEDS: polyethylene glycoL 3350 17 GM POWD.PACK PO (12:09)
--- NOTE | 2023-07-24 12:31 | PC.NURSE ---
Addendum entered by Rafia Mohr R.N. 07/24/23 12:46: Around 1120, pt complained of 10/10 sternal chest pain, not radiating. She said she had had pain like that in the past but could not tell RN relieving factors. RN and PCT took VS, VS stable - pt hypertensive but pt had been hypertensive earlier in day/during hospital stay. HR 81 BP 169/98 SPO2 98% Respiratory rate 18. RN informed provider immediately and provider ordered 12 lead and Chest Xray. Furosemide administered per order. After a few minutes pt said pain had abated. At 1230 again pt verified she was not in pain. Pt instructed to tell nursing staff if chest pain returned. AM note: In AM pt told RN that she only took 1/2 of the furosemide. RN verified via the pharmacy fill her furosemide dose and updated the provider. Pt had expressed to RN that she had difficulty swallowing and requested her pills to be crushed; RN contacted pharmacy to verify which pills could be crushed. Original Note: Lower extremity wounds cleaned and redressed per Olena at wound care instructions. Per patient request, compression stockings not re-applied.
--- NOTE | 2023-07-24 13:45 | CM.DPNOTE ---
DC Note Discharge home today with spouse, [facility] and caregivers through [facility]. Close outpatient follow up recommended. ERLIN Mueller, has notified [facility] that patient is discharged today. SHAHLA
== END 2023-07-24 14:10 | disposition home health service (06) | DRG 813 ==
LOC: ED 12:26 → AC 13:06
PROVIDERS: Hospitalist; Admitting Provider Internal Medicine; Emergency Provider Emergency Medicine; Family Provider Physician Assistant; PCP Family Medicine; Referring Provider Internal Medicine; Visit Provider Internal Medicine
DX: D69.3 Immune thrombocytopenic purpura (principal); E43 Unspecified severe protein-calorie malnutrition; I48.92 Unspecified atrial flutter; Z68.1 Body mass index [BMI] 19.9 or less, adult; I10 Essential (primary) hypertension; Z87.891 Personal history of nicotine dependence; Z86.711 Personal history of pulmonary embolism; F32.A Depression, unspecified; Z79.52 Long term (current) use of systemic steroids; Z66 Do not resuscitate
CPT/HCPCS: 36415; 36430; 70450; 71046; 80048; 80053; 83735; 85025; 85027; 85049; 85610; 85730; 86850; 86900; 86901; 93005; 97116; 97162; 97530; 99213; J1459; J2405; P9035

== ENCOUNTER 2023-07-28 10:00 | Emergency (ER) | payer MEDICARE, OTHER, SELFPAY ==
[2023-05-18 13:38] VITALS: BMI 20.9
[2023-07-28] VITALS (11 sets, daily range): BP systolic 134–187; BP diastolic 64–98; PULSE 56–94; RESP 15–23; TEMP 36.6; O2SAT 96–99; BMI 17.4
--- NOTE | 2023-07-28 10:25 | DI.CT.S_ITS ---
PROCEDURE: CT HEAD/BRAIN WO CON INDICATIONS: fall TECHNIQUE: Noncontrast 4.5 mm thick angled axial sections acquired from the foramen magnum to the vertex, with coronal and sagittal reformats. For radiation dose reduction, the following was used: automated exposure control, adjustment of mA and/or kV according to patient size. COMPARISON: [facility], CT, CT HEAD/BRAIN WO CON, 07/19/2023, 8:47. FINDINGS: Image quality: Diagnostic. CSF spaces: Basal cisterns are patent. No extra-axial fluid collections. The ventricles are symmetric in size and shape. Brain: No intracranial bleeds or masses. There is cerebral volume loss for age, with resultant ventricular and sulcal prominence. There are periventricular and deep white matter chronic small vessel ischemic changes. There is intracranial internal carotid artery atherosclerosis. Skull and face: Calvarium and visualized facial bones appear intact, without suspicious lesions. Sinuses: Visualized sinuses and mastoids are clear. IMPRESSION: No acute intracranial pathology. Dictated by: Manolo Li M.D. on 07/28/2023 at 11:08 Approved by: Manolo Li M.D. on 07/28/2023 at 11:09
--- NOTE | 2023-07-28 10:26 | DI.CT.S_ITS ---
PROCEDURE: CT CERVICAL SPINE WO CON INDICATIONS: fall TECHNIQUE: Noncontrast 3 mm thick sections acquired from the skull base to the T4 level. Sagittal and coronal reformats were then constructed. For radiation dose reduction, the following was used: automated exposure control, adjustment of mA and/or kV according to patient size. COMPARISON: [facility], CT, CT CERVICAL SPINE WO CON, 06/18/2023, 7:51. FINDINGS: Image quality: Excellent. Bones: No fractures or dislocations. Visualized superior ribs are intact. Diffuse spondylitic change. Findings include multilevel bony foraminal narrowing secondary to uncovertebral joint hypertrophy. Multilevel facet arthropathy. Soft tissues: Prevertebral soft tissues are normal in thickness. No paravertebral hematomas. No apical pneumothoraces. IMPRESSION: 1. No acute cervical fracture or dislocation. 2. Cervical spondylosis. Dictated by: Manolo Li M.D. on 07/28/2023 at 11:09 Approved by: Manolo Li M.D. on 07/28/2023 at 11:11
--- NOTE | 2023-07-28 10:41 | PC.NURSE ---
Patient is modified trauma per Dr. Herr at this time. No new orders.
--- NOTE | 2023-07-28 10:48 | EKG_ITS ---
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
--- NOTE | 2023-07-28 10:49 | ED_ITS ---
HPI - Fall General Chief Complaint: Fall Stated Complaint: fell and hit head last night Time Seen by Provider: 07/28/23 10:37 Source: patient Mode of arrival: Ambulatory History of Present Illness HPI Narrative: Patient brought here by for ground level fall last night at 10:00 p.m. in the bedroom. Patient has history of ITP since the 1970s. Followed by Dr. Yanez, hematology. Has had platelet transfusions in the past, most recently 2 or 3 weeks ago, 2 units. Patient has easy bruising which is not new. Patient is not on any blood thinners. Patient states she was getting out of bed, 10:00 p.m. last night, she was thinking to go the bathroom for the last time before going to sleep. When she stood up, she does not recall sitting as she usually does before standing up because she gets dizzy, she did stand up quickly and lost her balance and fell to the right side onto carpet. Complains of right- sided head pain, neck pain mid thoracic spine pain, left lower anterior rib pain, left knee pain. Patient has bandages to the left knee which are not new. She states she bumps and falls frequently. Related Data Home Medications Medication Instructions Recorded Confirmed polyethylene glycol 3350 17 gram 17 gm PO BEDTIME Constipation ##0 05/26/17 07/19/23 oral powder packet (Miralax) cholecalciferol (vitamin D3) 25 1 mcg PO DAILY 05/18/23 07/21/23 mcg (1,000 unit) capsule (Vitamin D3) estradiol 0.01% (0.1 mg/gram) 2 g vaginal 2XW 05/18/23 07/19/23 vaginal cream melatonin 3 mg capsule 6 mg PO BEDTIME 05/18/23 07/19/23 multivit with minerals-iron 18 1 tab PO DAILY 05/18/23 07/21/23 mg-folic ac 400 mcg-vit K 25 mcg tablet (Adults Multivitamin) vitamin B complex 1 tab PO DAILY 05/18/23 07/21/23 furosemide 20 mg tablet 10 mg PO DAILY 07/21/23 07/24/23 metoprolol succinate 25 mg 25 mg PO DAILY 07/21/23 07/21/23 tablet,extended release 24 hr pantoprazole 20 mg tablet,delayed 20 mg PO DAILY@0600 PRN Dyspepsia 07/21/23 07/21/23 release Previous Rx's Medication Instructions Recorded bupropion HCl 150 mg 24 hr tablet, 150 mg PO DAILY 90 days #90 tabs 07/24/23 extended release (Wellbutrin XL) oxycodone 5 mg tablet 5 mg PO Q6H PRN pain #15 tabs 07/24/23 prednisone 20 mg tablet 40 mg (2 x 20 mg) PO DAILY 14 days 07/24/23 #28 tabs Allergies Allergy/AdvReac Type Severity Reaction Status Date / Time latex Allergy Mild LOCAL RASH Verified 07/28/23 10:24 Penicillins Allergy Mild CHILDHOOD Verified 07/28/23 10:24 Sulfa (Sulfonamide Allergy Mild SOMETHING Verified 07/28/23 10:24 Antibiotics) TO DO WITH BLADDER OR KIDNEY'S?? azithromycin Allergy Verified 07/28/23 10:24 iodine AdvReac Intermediate RAPID Verified 07/28/23 10:24 HEART RATE (IV CONTRAST) Review of Systems Review of Systems Narrative: GENERAL: negative chills, fatigue, malaise, fever, sweats. HEENT: negative sinus pain, ear pain, sore throat RESPIRATORY: negative dyspnea, cough CARDIOVASCULAR: negative chest pain, palpitations GASTROINTESTINAL: negative nausea, vomiting, abdominal pain : negative dysuria, frequency, hematuria MUSCULOSKELETAL: Positive muscle or bony pain SKIN: negative rash, skin lesions NEUROLOGIC: negative weakness, numbness ROS Unobtainable: All systems reviewed & are unremarkable except as noted in HPI and below Patient History Medical History SVT (supraventricular tachycardia) Chronic ITP (idiopathic thrombocytopenic purpura) Pulmonary embolism and infarction Chronic steroid use Microscopic hematuria Scoliosis Anxiety Osteoporosis Atrial flutter Hypertension Surgical History History of splenectomy Status post hysterectomy History of tonsillectomy Family History Father Cancer Mother Bleeding disorder Brother Brain cancer Social History marital status: household members: spouse lives independently: Yes Smoking Status: Former smoker alcohol intake: former Smoking Status: Former smoker alcohol intake frequency: holidays/special occasions only Substance Use Type: does not use Exam Narrative Exam Narrative: GENERAL: in no distress, not toxic not dyspneic HEAD: Normocephalic. Examination of the head mild bright prior tenderness no crepitus or step-off. EYES: Pupils equal round ENT: Mucous membranes moist. NECK: Trachea midline. Examination of cervical spine no midline tenderness or step-off but there is mild right and left paracervical muscle tenderness. Examination of thoracic spine mild midthoracic spine tenderness, there is scoliosis. No bruising or injury seen to the back. CARDIOVASCULAR: Regular rate and rhythm RESPIRATORY: Clear to auscultation. Breath sounds equal bilaterally. No wheezes, rales, or rhonchi. GASTROINTESTINAL: Abdomen soft, non-tender EXTREMITIES: No gross deformities. Examination of the chest wall/lungs, clear and equal lung sounds. There is a mild left anterior inferior rib tenderness without crepitus or fell or bruising or abrasion. Examination of the left knee, able to fully flex and extend at the knee without difficulty. No deformity of the left knee. It is not tender to touch. Multiple areas of healing bruises on the extremities. BACK: No flank tenderness. NEURO: AOx4. Clear speech SKIN: Warm and dry PSYCH: Not anxious, is cooperative Initial Vital Signs Initial Vital Signs: Vital Signs Temperature 98 F 07/28/23 10:11 Pulse Rate 70 07/28/23 10:11 Respiratory Rate 17 07/28/23 10:11 Blood Pressure 187/86 H 07/28/23 10:11 Pulse Oximetry 98 07/28/23 10:11 Oxygen Delivery Method Room Air 07/28/23 10:11 Course Orders Ordered: Discontinued Medications Sodium Chloride (Normal Saline 0.9%) 500 mls @ 1,000 mls/hr IV BOLUS ONE Stop: 07/28/23 12:05 Last Infusion: 07/28/23 13:09 Dose: Infused Documented By: Admin: 07/28/23 11:48 Dose: 1,000 mls/hr Documented By: Vital Signs Vital signs: Vital Signs - 8 hr 07/28/23 10:11 07/28/23 11:11 07/28/23 11:15 Temperature 98 F Pulse Rate 70 60 Respiratory Rate 17 Blood Pressure 187/86 H 180/98 H Pulse Oximetry 98 Oxygen Delivery Method Room Air 07/28/23 11:15 07/28/23 11:30 07/28/23 11:30 Temperature Pulse Rate 61 60 Respiratory Rate 15 Blood Pressure 180/97 H Pulse Oximetry 99 98 Oxygen Delivery Method 07/28/23 12:00 07/28/23 12:00 07/28/23 12:30 Temperature Pulse Rate 57 L 56 L Respiratory Rate Blood Pressure 172/90 H Pulse Oximetry 97 97 Oxygen Delivery Method 07/28/23 12:30 07/28/23 13:00 07/28/23 13:00 Temperature Pulse Rate 69 Respiratory Rate Blood Pressure 177/90 H 153/74 H Pulse Oximetry 97 Oxygen Delivery Method 07/28/23 13:30 07/28/23 13:33 07/28/23 13:33 Temperature Pulse Rate 94 H 74 Respiratory Rate 23 Blood Pressure 134/65 Pulse Oximetry 98 97 Oxygen Delivery Method 07/28/23 14:00 07/28/23 14:00 Temperature Pulse Rate 69 Respiratory Rate 23 Blood Pressure 150/64 H Pulse Oximetry 98 Oxygen Delivery Method MDM - Fall Lab Data 07/28/23 11:07 07/28/23 11:07 Labs: Lab Results 07/28/23 Range/Units 11:07 WBC 12.9 H (4.5-11.0) X10^3/uL RBC 4.10 (4.0-5.2) X10^6/uL Hgb 11.4 L (12.0-16.0) g/dL Hct 34.8 L (36-46) % MCV 85.0 (80-100) fL MCH 27.8 (26-34) PG MCHC 32.8 (30-36) % RDW 16.0 H (11.6-14.8) % Plt Count 129 L (150-400) X10^3/uL Neut % (Auto) 64.0 (50-75) % Lymph % (Auto) 21.7 L (25-40) % Bee % (Auto) 12.1 (3-14) % Eos % (Auto) 1.4 L (2-4) % Baso % (Auto) 0.8 (0-2) % Neut # (Auto) 8200 H (6612-7792) /uL Lymph # (Auto) 2800 (9840-5735) /uL Bee # (Auto) 1600 H (0-900) /uL Eos # (Auto) 200 (0-450) /uL Baso # (Auto) 100 (0-100) /uL Sodium 133 L (137-145) mmol/L Potassium 3.5 (3.4-5.1) mmol/L Chloride 101 (98-107) mmol/L Carbon Dioxide 30 (22-32) mmol/L BUN 36 H (7-17) mg/dL Creatinine 1.15 H (0.52-1.04) mg/dL Estimated GFR 48 L (>60) mL/min BUN/Creatinine Ratio 31.3 H (6-22) Glucose 84 (80-110) mg/dL Calcium 9.0 (8.4-10.2) mg/dL Total Bilirubin 0.9 (0.2-1.3) mg/dL AST 22 (14-36) IU/L ALT 15 (<35) IU/L Alkaline Phosphatase 77 (38-126) U/L Total Protein 8.4 H (6.3-8.2) g/dL Albumin 4.3 (3.5-5.0) g/dL Globulin 4.1 (1.7-4.1) g/dL Albumin/Globulin Ratio 1.0 (1.0-2.8) Imaging Data CT scan - head: Radiologist's Impression: [place] [address] CT Scan Report Signed Patient: Priscilla Mahan MR#: [id number] : 1940 Acct:[id number] Age/Sex: 82 / F Date of Service: 07/28/23 Loc: ED Accession Number: [id number] Procedure: CT head/brain wo con Ordering Provider: Joovn Herr MD PROCEDURE: CT HEAD/BRAIN WO CON INDICATIONS: fall TECHNIQUE: Noncontrast 4.5 mm thick angled axial sections acquired from the foramen magnum to the vertex, with coronal and sagittal reformats. For radiation dose reduction, the following was used: automated exposure control, adjustment of mA and/or kV according to patient size. COMPARISON: [facility], CT, CT HEAD/BRAIN WO CON, 07/19/2023, 8:47. FINDINGS: Image quality: Diagnostic. CSF spaces: Basal cisterns are patent. No extra-axial fluid collections. The ventricles are symmetric in size and shape. Brain: No intracranial bleeds or masses. There is cerebral volume loss for age, with resultant ventricular and sulcal prominence. There are periventricular and deep white matter chronic small vessel ischemic changes. There is intracranial internal carotid artery atherosclerosis. Skull and face: Calvarium and visualized facial bones appear intact, without suspicious lesions. Sinuses: Visualized sinuses and mastoids are clear. IMPRESSION: No acute intracranial pathology. Dictated by: Manolo Li M.D. on 07/28/2023 at 11:08 Approved by: Manolo Li M.D. on 07/28/2023 at 11:09 CT - cervical spine: Radiologist's Impression: [place] [address] CT Scan Report Signed Patient: Priscilla Mahan MR#: [id number] : 1940 Acct:[id number] Age/Sex: 82 / F Date of Service: 07/28/23 Loc: ED Accession Number: [id number] Procedure: CT cervical spine wo con Ordering Provider: Jovon Herr MD PROCEDURE: CT CERVICAL SPINE WO CON INDICATIONS: fall TECHNIQUE: Noncontrast 3 mm thick sections acquired from the skull base to the T4 level. Sagittal and coronal reformats were then constructed. For radiation dose reduction, the following was used: automated exposure control, adjustment of mA and/or kV according to patient size. COMPARISON: [facility], CT, CT CERVICAL SPINE WO CON, 06/18/2023, 7:51. FINDINGS: Image quality: Excellent. Bones: No fractures or dislocations. Visualized superior ribs are intact. Diffuse spondylitic change. Findings include multilevel bony foraminal narrowing secondary to uncovertebral joint hypertrophy. Multilevel facet arthropathy. Soft tissues: Prevertebral soft tissues are normal in thickness. No paravertebral hematomas. No apical pneumothoraces. IMPRESSION: 1. No acute cervical fracture or dislocation. 2. Cervical spondylosis. Dictated by: Manolo Li M.D. on 07/28/2023 at 11:09 Approved by: Manolo Li M.D. on 07/28/2023 at 11:11 CT chest abdomen and pelvis: Radiologist's Impression: [address] [address] [address] Scan Report Signed Patient: Priscilla Mahan MR#: [id number] : 1940 Acct:[id number] Age/Sex: 82 / F Date of Service: 07/28/23 Loc: ED Accession Number: [id number] Procedure: CT chest abd pel wo con Ordering Provider: Jovon Herr MD PROCEDURE: CT CHEST ABD PEL WO CON INDICATIONS: Fall/pain TECHNIQUE: After the administration of oral contrast, 5 mm thick sections acquired from the lung apices to the symphysis pubis. 5 mm thick coronal and sagittal reformats acquired, with additional 7 mm coronal MIP reformats through the lungs. For radiation dose reduction, the following was used: automated exposure control, adjustment of mA and/or kV according to patient size. COMPARISON: [facility], CT, CT ABDOMEN PELVIS WITHOUT CONTRAST, 02/05/2022, 11:01. [facility], CT, CT CERVICAL SPINE WITHOUT CONTRAST, 05/28/2023, 19:23. [facility], CT, CT CERVICAL SPINE WO CON, 04/01/2022, 17:05. [facility], CT, CT ABDOMEN PELVIS WO CON, 06/30/2023, 12:12. [facility], CT, CT CHEST ABD PEL WO CON, 03/03/2020, 11:49. FINDINGS: Image quality: Diagnostic. CHEST: Lower Neck: No enlarged lymph nodes. Thyroid: No thyroid nodules which require sonographic follow up, per consensus guidelines. Axillae: No enlarged lymph nodes. Chest Wall: Unremarkable. Bones: See below. A T9 compression appears to represent a Re fracture on top of a severe chronic compression. Lungs and Pleura: No pneumothorax or pleural effusions. There is posterior density in the right upper lobe adjacent to the pleura. Reference axial image 88 of series 9 and sagittal image 51 of series 8. This density was present dating back to 04/01/2022, and is likely benign scarring. Heart: Heart size is normal. No pericardial effusion. Thoracic Vessels: The aorta and pulmonary arteries demonstrate normal size. Mediastinum and Candice: No enlarged lymph nodes. Esophagus: No wall thickening. No hiatal hernia. ABDOMEN: Liver: No solid mass. Gallbladder: No radiopaque gallstones or wall thickening. Biliary ducts: No biliary dilation. Pancreas: No ductal dilation. Spleen: Surgically absent Adrenal Glands: No adrenal nodules. Kidneys and Ureters: No hydronephrosis. No solid mass. No complex renal cystic lesion which requires follow up. Stomach and Bowel: Normal colonic caliber, without significant wall thickening. Peritoneum: No abnormal intraperitoneal fluid. No free air. Ventral Wall: No hernia. Abdominal Nodes: No retroperitoneal or mesenteric adenopathy by size criteria. Vessels: Aorta and inferior vena cava are normal in size. PELVIS: Pelvic Organs: Unremarkable. Bladder: Unremarkable. Pelvic Nodes: No enlarged lymph nodes. Miscellaneous: No inguinal hernias are seen. Bones: No aggressive osseous abnormality. There is a severe T9 compression fracture which was present on the previous study. It may have been chronic on the previous study. It appears to have Re fracture and since that time, and is severe/high-grade. There is now air present underneath the superior endplate. There is severe scoliotic curvature with convexity to the left centered at L1. IMPRESSION: 1. There is a severe/high-grade T9 compression fracture which appears to represent interval refracture of a previous chronic severe compression. 2. Severe scoliotic curvature. 3. Chronic scarring, posterior inferior right upper lobe. 4. No other acute findings in the chest, abdomen, and pelvis. 5. Remote splenectomy and hysterectomy. Dictated by: Manolo Li M.D. on 07/28/2023 at 11:16 Approved by: Manolo Li M.D. on 07/28/2023 at 11:42 Extremity x-ray #1: Radiologist's Impression: [place] [address] XRay Report Signed Patient: Priscilla Mahan MR#: [id number] : 1940 Acct:[id number] Age/Sex: 82 / F Date of Service: 07/28/23 Loc: ED Accession Number: [id number] Procedure: XR knee LT 3V Ordering Provider: Jovon Herr MD PROCEDURE: XR KNEE LT 3V INDICATIONS: Fall/pain TECHNIQUE: 3 views of the knee were acquired. COMPARISON: None. FINDINGS: Bones: No fractures or dislocations. No suspicious bony lesions. Soft tissues: No joint effusion. No suspicious soft tissue calcifications. IMPRESSION: No acute bony abnormality or significant effusion. If pain persists, followup imaging in 5-7 days is recommended to exclude occult fracture. Dictated by: Patsy Pierre M.D. on 07/28/2023 at 12:43 Approved by: Patsy Pierre M.D. on 07/28/2023 at 12:44 MDM Narrative Medical decision making narrative: Patient brought here by for ground level fall last night at 10:00 p.m. in the bedroom. Patient has history of ITP since the 1970s. Followed by Dr. Yanez, hematology. Has had platelet transfusions in the past, most recently 2 or 3 weeks ago, 2 units. Patient has easy bruising which is not new. Patient is not on any blood thinners. Patient states she was getting out of bed, 10:00 p.m. last night, she was thinking to go the bathroom for the last time before going to sleep. When she stood up, she does not recall sitting as she usually does before standing up because she gets dizzy, she did stand up quickly and lost her balance and fell to the right side onto carpet. Complains of right- sided head pain, neck pain mid thoracic spine pain, left lower anterior rib pain, left knee pain. Patient has bandages to the left knee which are not new. She states she bumps and falls frequently. After history and exam informed nursing for modified trauma equivalent with ITP, CBC CMP CT head cervical spine chest abdomen pelvis x-ray left knee, EKG, normal saline MDM Medical records reviewed: No recent visit for this complaint Differential considered: Includes but not limited to head bleed skull fracture cervical/spine fracture contusion cervical strain rib fracture hemothorax pneumothorax knee contusion fracture dislocation Lab Test results independently reviewed as above. Pertinent findings: WBC 12.9 hemoglobin 11.4 platelets 129 sodium 133 potassium 3.5 BUN 36 creatinine 1.15 Independently reviewed EKG normal sinus rhythm rate [address] elevation or depression Imaging studies independently reviewed: CT head no acute finding CT cervical spine no acute finding CT chest abdomen pelvis T9 fracture left knee no acute finding Consultations: 2:47 p.m.. Spoke with [facility], ortho spine, Dr. Bell, he is reviewed the films. At this time patient can use her home vest brace for comfort. Follow up with primary care for re- evaluation. No heavy lifting until seen by her provider. No need for transfer admission. Patient neurologically intact Treatments: None indicated at this time Re-evaluations: 3:00 p.m.. Reviewed results with patient. She does not recall about 2 weeks ago she saw a chiropractor for spine adjustment and that is when the pain started in the back. Reviewed with her exam findings and CT imaging in my discussion with ortho spine. This is likely not from the fall last night. Injury of the spine may have occurred during chiropractic session. Pain is controlled. Return precautions reviewed. She desires discharge home. Discussion: WBC noted, likely demargination from trauma last night or hemo concentration, BUN creatinine noted. I did review with ortho spine, CT imaging reviewed with patient and family. She does understand no more chiropractic services. She is to use her vest/brace and follow up with primary care. Pain is controlled. She desires discharge home Diagnosis: Scalp contusion cervical strain rib contusion knee contusion vertebral compression fracture Discharge Plan Departure Patient Disposition: Home Clinical Impression: Contusion of scalp Qualifiers: Encounter type: initial encounter Qualified Code(s): S00.03XA - Contusion of scalp, initial encounter Cervical strain, acute Qualifiers: Encounter type: initial encounter Qualified Code(s): S16.1XXA - Strain of muscle, fascia and tendon at neck level, initial encounter Contusion of rib on left side Qualifiers: Encounter type: initial encounter Qualified Code(s): S20.212A - Contusion of left front wall of thorax, initial encounter Contusion of knee, left Qualifiers: Encounter type: initial encounter Qualified Code(s): S80.02XA - Contusion of left knee, initial encounter Vertebral compression fracture Qualifiers: Encounter type: initial encounter Fracture of vertebra location: thoracic T horacic vertebra fracture level: unspecified thoracic vertebra Qualified Code(s): S22.000A - Wedge compression fracture of unspecified thoracic vertebra, initial encounter for closed fracture Instructions: DI for Vertebral Fracture, DI for Contusion, DI for Rib Contusion, DI for Cervical Muscle Strain, DI for Closed Head Injury Activity Restrictions/Additional Instructions: Please use your back brace until you see your family doctor within this week for re-evaluation. Please do not continue any chiropractic services. You may continue home medications. May take home Tylenol for pain. Return if worse if any questions or concerns. Your CT scan imaging of your spine was reviewed by ortho spine provider today. The injury likely did not occur from last night/fall. Return if worse if any questions or concerns. Your blood work and other images are reassuring. Prescriptions: No Action polyethylene glycol 3350 [Miralax] 17 GM powder in packet 17 gm PO BEDTIME Qty: 0 estradiol 0.01 % (0.1 mg/gram) cream 2 g vaginal 2XW Patient Comments: takes sundays and wednesdays vitamin B complex Tablet 1 tab PO DAILY cholecalciferol (vitamin D3) [Vitamin D3] 25 mcg (1,000 unit) Capsule 1 mcg PO DAILY Adults Multivitamin 18 mg iron-400 mcg-25 mcg Tablet 1 tab PO DAILY melatonin 3 mg Capsule 6 mg PO BEDTIME furosemide 20 mg tablet 10 mg PO DAILY metoprolol succinate 25 mg tablet extended release 24 hr 25 mg PO DAILY pantoprazole 20 mg Tablet,Delayed Release (Dr/Ec) 20 mg PO DAILY@0600 PRN (Reason: Dyspepsia) prednisone 20 mg Tablet 40 mg PO DAILY 14 Days Qty: 28 0RF bupropion HCl [Wellbutrin XL] 150 mg Tablet Extended Release 24 Hr 150 mg PO DAILY 90 Days Qty: 90 0RF oxycodone 5 mg tablet 5 mg PO Q6H PRN (Reason: pain) Qty: 15 0RF Referrals: Jayson Machado MD [Primary Care Provider] - Stand Alone Forms: Patient Portal/API
[2023-07-28 11:20] LABS: Add Manual Diff / Slide Review NO; Basophils Absolute Auto 100 /uL (0-100); Basophils Percent Auto 0.8 % (0-2); Eosinophils Absolute Auto 200 /uL (0-450); Eosinophils Percent Auto 1.4 % (2-4); Hematocrit 34.8 % (36-46); Hemoglobin 11.4 g/dL (12.0-16.0); Lymphocytes Absolute Auto 2800 /uL (1100-4500); Lymphocytes Percent Auto 21.7 % (25-40); Mean Corpuscular HGB Conc 32.8 % (30-36); Mean Corpuscular Hemoglobin 27.8 PG (26-34); Monocytes Absolute Auto 1600 /uL (0-900); Monocytes Percent Auto 12.1 % (3-14); Neutrophils Absolute Auto 8200 /uL (1500-7000); Platelet Count 129 X10^3/uL (150-400); White Blood Cell Count 12.9 X10^3/uL (4.5-11.0)
[2023-07-28 11:30] LABS: Alanine Aminotransferase 15 IU/L (<35); Albumin 4.3 g/dL (3.5-5.0); Alkaline Phosphatase 77 U/L (38-126); Aspartate Aminotransferase 22 IU/L (14-36); BUN Creatinine Ratio 31.3 (6-22); Bilirubin Total 0.9 mg/dL (0.2-1.3); Blood Urea Nitrogen 36 mg/dL (7-17); Carbon Dioxide 30 mmol/L (22-32); Chloride 101 mmol/L (98-107); Estimated Glomerular Filt Rate 48 mL/min (>60); Globulin 4.1 g/dL (1.7-4.1); Glucose 84 mg/dL (80-110); HEMOLYSIS < 15 (0-50); Potassium 3.5 mmol/L (3.4-5.1); Sodium 133 mmol/L (137-145); Total Protein 8.4 g/dL (6.3-8.2)
--- NOTE | 2023-07-28 11:30 | PC.NURSE ---
Pt refused to change into hospital gown at this time.
[2023-07-28] MEDS: SODIUM CHLORIDE 0.9% 500 ML 1000 ML IV (11:48)
== END 2023-07-28 15:09 | disposition home or self-care (01) ==
PROVIDERS: Emergency Provider Emergency Medicine; Family Provider Physician Assistant; PCP Family Medicine
DX: S00.03XA Contusion of scalp, initial encounter (principal); S16.1XXA Strain of muscle, fascia and tendon at neck level, initial encounter; S20.212A Contusion of left front wall of thorax, initial encounter; S80.02XA Contusion of left knee, initial encounter; S22.000A Wedge compression fracture of unspecified thoracic vertebra, initial encounter for closed fracture; W18.30XA Fall on same level, unspecified, initial encounter
CPT/HCPCS: 36415; 70450; 71250; 72125; 73562; 74176; 80053; 85025; 93005; 96360; 99284

== ENCOUNTER → 2023-07-31 10:21 | Outpatient (CLI) | payer MEDICARE, OTHER, SELFPAY ==
[2023-05-18 13:38] VITALS: BMI 20.9
== END ==
PROVIDERS: Family Provider Physician Assistant; PCP Family Medicine; Visit Provider Surgery
DX: S81.812D Laceration without foreign body, left lower leg, subsequent encounter (principal); S71.112D Laceration without foreign body, left thigh, subsequent encounter; S81.802D Unspecified open wound, left lower leg, subsequent encounter; I87.2 Venous insufficiency (chronic) (peripheral); R60.0 Localized edema; Z92.25 Personal history of immunosuppression therapy; Z79.01 Long term (current) use of anticoagulants
CPT/HCPCS: 99213

== ENCOUNTER → 2023-08-27 08:45 | Outpatient (CLI) | payer MEDICARE, OTHER, SELFPAY ==
[2023-05-18 13:38] VITALS: BMI 20.9
== END ==
PROVIDERS: Family Provider Physician Assistant; PCP Family Medicine; Visit Provider Surgery
DX: S81.801A Unspecified open wound, right lower leg, initial encounter (principal); L98.8 Other specified disorders of the skin and subcutaneous tissue; I87.2 Venous insufficiency (chronic) (peripheral); R60.0 Localized edema; D69.3 Immune thrombocytopenic purpura; I73.81 Erythromelalgia; Z92.25 Personal history of immunosuppression therapy; Z79.01 Long term (current) use of anticoagulants
CPT/HCPCS: 11042; 99213

== ENCOUNTER → 2023-09-03 09:48 | Outpatient (CLI) | payer MEDICARE, OTHER, SELFPAY ==
[2023-05-18 13:38] VITALS: BMI 20.9
== END ==
LOC: WC 09:49
PROVIDERS: Family Provider Physician Assistant; PCP Family Medicine; Visit Provider Surgery
DX: S81.801A Unspecified open wound, right lower leg, initial encounter (principal); L98.8 Other specified disorders of the skin and subcutaneous tissue; I87.2 Venous insufficiency (chronic) (peripheral); R60.0 Localized edema; Z92.25 Personal history of immunosuppression therapy; Z79.01 Long term (current) use of anticoagulants; Z79.52 Long term (current) use of systemic steroids
CPT/HCPCS: 11042

== ENCOUNTER → 2023-09-10 10:06 | Outpatient (CLI) | payer MEDICARE, OTHER, SELFPAY ==
[2023-05-18 13:38] VITALS: BMI 20.9
== END ==
PROVIDERS: Family Provider Physician Assistant; PCP Family Medicine; Visit Provider Nurse Practitioner Family
DX: S81.801A Unspecified open wound, right lower leg, initial encounter (principal); L98.8 Other specified disorders of the skin and subcutaneous tissue; R60.0 Localized edema; R23.3 Spontaneous ecchymoses; Z79.52 Long term (current) use of systemic steroids; Z79.01 Long term (current) use of anticoagulants; I87.2 Venous insufficiency (chronic) (peripheral)
CPT/HCPCS: 11042; 99213

== ENCOUNTER → 2023-10-07 11:06 | Outpatient (CLI) | payer MEDICARE, OTHER, SELFPAY ==
[2023-05-18 13:38] VITALS: BMI 20.9
== END ==
PROVIDERS: Family Provider Physician Assistant; PCP Family Medicine; Visit Provider Surgery
DX: S81.801A Unspecified open wound, right lower leg, initial encounter (principal); L98.8 Other specified disorders of the skin and subcutaneous tissue; I87.2 Venous insufficiency (chronic) (peripheral); R60.0 Localized edema; D69.3 Immune thrombocytopenic purpura; Z92.25 Personal history of immunosuppression therapy; Z79.01 Long term (current) use of anticoagulants
CPT/HCPCS: 99213

== ENCOUNTER → 2023-11-19 10:13 | Outpatient (CLI) | payer MEDICARE, OTHER, SELFPAY ==
[2023-05-18 13:38] VITALS: BMI 20.9
--- NOTE | 2023-11-19 10:15 | DI.RAD.S_ITS ---
PROCEDURE: XR WRIST RT MIN 3V INDICATIONS: fall on hand/arm 2 days ago TECHNIQUE: Four views of the wrist were acquired. COMPARISON: [facility], CR, XR WRIST RT MIN 3V, 11/03/2021, 11:59. FINDINGS: Bones: Comminuted fracture of the distal radial epiphysis appreciated with fracture lines extending to articular surface. It is only minimally displaced with no angulation deformity. Joints: Severe STT degeneration noted Soft tissues: Moderate chondrocalcinosis in the TFCC.. IMPRESSION: Minimally displaced comminuted fracture -distal radial epiphysis. Severe STT degeneration Chondrocalcinosis in the TFCC Dictated by: Michoacano Jefferson M.D. on 11/20/2023 at 9:29 Approved by: Michoacano Jefferson M.D. on 11/20/2023 at 9:30
--- NOTE | 2023-11-19 10:15 | DI.RAD.S_ITS ---
PROCEDURE: XR FOREARM RT 2V INDICATIONS: fall on arm/hand 2 days ago TECHNIQUE: 2 views of the forearm were acquired. COMPARISON: [facility], CT, CT HEAD/BRAIN WO CON, 07/28/2023, 10:50. FINDINGS: Bones: There are no osseous abnormalities Joints: The joint spaces are normal in width and alignment without arthritic change. Soft tissues: No soft tissue abnormality. IMPRESSION: Normal. Dictated by: Michoacano Jefferson M.D. on 11/20/2023 at 9:27 Approved by: Michoacano Jefferson M.D. on 11/20/2023 at 9:28
--- NOTE | 2023-11-19 10:15 | DI.RAD.S_ITS ---
PROCEDURE: XR HAND RT MIN 3V INDICATIONS: Trauma TECHNIQUE: 3 views of the hand(s) acquired. COMPARISON: None FINDINGS: Bones: Minimally displaced comminuted fracture of the distal radial epiphysis is better seen on dedicated wrist series. No other osseous abnormality. Joints: Severe STT, 1st DIP degeneration appreciated. 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 Hyperflexion of the 5th PIP noted Soft tissues: Chondrocalcinosis seen in the TFCC. IMPRESSION: Comminuted distal radial fracture minimal displacement. Multilevel degeneration. Chondrocalcinosis of the TFCC Dictated by: Michoacano Jefferson M.D. on 11/20/2023 at 9:31 Approved by: Michoacano Jefferson M.D. on 11/20/2023 at 9:34
--- NOTE | 2023-11-19 10:15 | DI.RAD.S_ITS ---
PROCEDURE: XR ELBOW RT MIN 3V INDICATIONS: fall on arm/hand 2 days ago TECHNIQUE: 3 views of the elbow were acquired. COMPARISON: None. FINDINGS: Bones: There are no osseous abnormalities. Elbow joint: Normal in width and alignment without arthritic change. There are no effusions. Soft tissues: No soft tissue swelling, calcification or mass. IMPRESSION: Normal elbow Dictated by: Michoacano Jefferson M.D. on 11/20/2023 at 9:25 Approved by: Michoacano Jefferson M.D. on 11/20/2023 at 9:26
== END ==
PROVIDERS: Family Provider Physician Assistant; PCP Family Medicine; Referring Provider Physician Assistant; Visit Provider Physician Assistant
DX: S52.591A Other fractures of lower end of right radius, initial encounter for closed fracture (principal); S49.90XA Unspecified injury of shoulder and upper arm, unspecified arm, initial encounter; M11.231 Other chondrocalcinosis, right wrist; M19.031 Primary osteoarthritis, right wrist; M19.041 Primary osteoarthritis, right hand; M15.4 Erosive (osteo)arthritis; W19.XXXA Unspecified fall, initial encounter
CPT/HCPCS: 73080; 73090; 73110; 73130

== ENCOUNTER → 2023-12-02 09:38 | Outpatient (CLI) | payer MEDICARE, OTHER, SELFPAY ==
[2023-05-18 13:38] VITALS: BMI 20.9
== END ==
LOC: WC 09:38
PROVIDERS: Family Provider Physician Assistant; PCP Family Medicine; Visit Provider Surgery
DX: S81.801A Unspecified open wound, right lower leg, initial encounter (principal); S81.802A Unspecified open wound, left lower leg, initial encounter; L98.8 Other specified disorders of the skin and subcutaneous tissue; I87.2 Venous insufficiency (chronic) (peripheral); R60.0 Localized edema; D69.3 Immune thrombocytopenic purpura; I73.81 Erythromelalgia; Z79.01 Long term (current) use of anticoagulants
CPT/HCPCS: 11042; 99213

== ENCOUNTER → 2023-12-06 14:57 | Outpatient (CLI) | payer MEDICARE, OTHER, SELFPAY ==
[2023-05-18 13:38] VITALS: BMI 20.9
--- NOTE | 2023-12-06 | DI.CT.S_ITS ---
PROCEDURE: CT HEAD/BRAIN WO CON INDICATIONS: RECURRENT FALLS / CONCUSSION W/UNKNOWN LOC TECHNIQUE: Noncontrast 4.5 mm thick angled axial sections acquired from the foramen magnum to the vertex, with coronal and sagittal reformats. For radiation dose reduction, the following was used: automated exposure control, adjustment of mA and/or kV according to patient size. COMPARISON: [facility], CT, CT HEAD/BRAIN WO CON, 07/28/2023, 10:50. FINDINGS: Image quality: Diagnostic. CSF spaces: Basal cisterns are patent. No extra-axial fluid collections. The ventricles are symmetric in size and shape. Brain: No intracranial bleeds or masses. There is cerebral volume loss for age, with resultant ventricular and sulcal prominence. There are periventricular and deep white matter chronic small vessel ischemic changes. There is intracranial internal carotid artery atherosclerosis. Skull and face: Calvarium and visualized facial bones appear intact, without suspicious lesions. Sinuses: Visualized sinuses and mastoids are clear. IMPRESSION: No acute intracranial pathology. Dictated by: Pepito Styles M.D. on 12/06/2023 at 19:02 Approved by: Pepito Styles M.D. on 12/06/2023 at 19:03
== END ==
LOC: CT 14:59
PROVIDERS: Family Provider Physician Assistant; PCP Family Medicine; Referring Provider Family Medicine; Visit Provider Family Medicine
DX: S06.0XAA Concussion with loss of consciousness status unknown, initial encounter; R29.6 Repeated falls
CPT/HCPCS: 70450

== ENCOUNTER → 2023-12-09 09:56 | Outpatient (CLI) | payer MEDICARE, OTHER, SELFPAY ==
[2023-05-18 13:38] VITALS: BMI 20.9
== END ==
LOC: WC 09:57
PROVIDERS: Family Provider Physician Assistant; PCP Family Medicine; Visit Provider Surgery
DX: S81.802A Unspecified open wound, left lower leg, initial encounter (principal); S81.801A Unspecified open wound, right lower leg, initial encounter; I87.2 Venous insufficiency (chronic) (peripheral); D69.3 Immune thrombocytopenic purpura; Z79.01 Long term (current) use of anticoagulants
CPT/HCPCS: 11042

== ENCOUNTER → 2023-12-15 10:03 | Outpatient (CLI) | payer MEDICARE, OTHER, SELFPAY ==
[2023-05-18 13:38] VITALS: BMI 20.9
--- NOTE | 2023-12-15 10:06 | DI.RAD.S_ITS ---
PROCEDURE: XR KUB INDICATIONS: Unspecified abdominal pain TECHNIQUE: One view of the abdomen acquired. COMPARISON: [facility], CT, CT HEAD/BRAIN WO CON, 12/06/2023, 15:07. FINDINGS: Stool gas pattern: Normal-no evidence of ileus or obstruction. No free intraperitoneal or extraperitoneal air. No gross evidence of ascites Soft tissues: Scattered calcifications in the abdomen pelvis are likely calcified granulomas or lymph nodes. A 8 mm calcification in the right mid abdomen could potentially represent a stone in the right renal pelvis.. No soft tissue masses. Severe levoscoliosis appreciated Organs: No gross evidence for organomegaly. IMPRESSION: Multiple calcifications are likely benign. One 8 mm calcification , in the right upper quadrant , could represent a renal stone Dictated by: Michoacano Jefferson M.D. on 12/16/2023 at 10:18 Approved by: Michoacano Jefferson M.D. on 12/16/2023 at 10:19
--- NOTE | 2023-12-15 10:06 | DI.RAD.S_ITS ---
PROCEDURE: XR RIBS LT MIN 3V W CXR1V INDICATIONS: Unspecified abdominal pain TECHNIQUE: Three-view of the ribs were acquired, along with a single view chest. COMPARISON: None. FINDINGS: Heart, mediastinum and pulmonary vascular: Heart is normal in size and configuration. Mediastinum is unremarkable. Pulmonary vascular is normal. Lungs: Clear. Right diaphragm is moderately elevated Pleural spaces: Normal-no effusions or pneumothorax. Bones and soft tissues: Left ribs are normal. Compression fractures of the lower thoracic spine are poorly visualized IMPRESSION: Moderate elevation right diaphragm. No acute cardiopulmonary disease. Left ribs are normal Dictated by: Michoacano Jefferson M.D. on 12/16/2023 at 10:11 Approved by: Michoacano Jefferson M.D. on 12/16/2023 at 10:13
== END ==
PROVIDERS: Family Provider Physician Assistant; PCP Family Medicine; Referring Provider Family Medicine; Visit Provider Family Medicine
DX: R29.6 Repeated falls (principal); R10.9 Unspecified abdominal pain
CPT/HCPCS: 71101; 74018

== ENCOUNTER → 2023-12-16 10:40 | Outpatient (CLI) | payer MEDICARE, OTHER, SELFPAY ==
[2023-05-18 13:38] VITALS: BMI 20.9
== END ==
LOC: WC 10:41
PROVIDERS: Family Provider Physician Assistant; PCP Family Medicine; Visit Provider Surgery
DX: R60.0 Localized edema (principal); D69.3 Immune thrombocytopenic purpura; I87.2 Venous insufficiency (chronic) (peripheral); S81.801D Unspecified open wound, right lower leg, subsequent encounter; S81.802D Unspecified open wound, left lower leg, subsequent encounter
CPT/HCPCS: 11042; 99212

== ENCOUNTER → 2023-12-23 10:54 | Outpatient (CLI) | payer MEDICARE, OTHER, SELFPAY ==
[2023-05-18 13:38] VITALS: BMI 20.9
== END ==
PROVIDERS: Family Provider Physician Assistant; PCP Family Medicine; Visit Provider Surgery
DX: S81.801D Unspecified open wound, right lower leg, subsequent encounter (principal); R60.0 Localized edema; I87.2 Venous insufficiency (chronic) (peripheral); Z79.01 Long term (current) use of anticoagulants
CPT/HCPCS: 99213

== ENCOUNTER 2024-05-03 15:48 | Emergency (ER) | payer MEDICARE, OTHER, SELFPAY ==
[2023-05-18 13:38] VITALS: BMI 20.9
[2024-05-03] VITALS (8 sets, daily range): BP systolic 119–140; BP diastolic 61–73; PULSE 78–93; RESP 15–25; TEMP 36.8; O2SAT 91–99; BMI 18.8
--- NOTE | 2024-05-03 16:42 | EKG_ITS ---
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
[2024-05-03 16:45] LABS: Add Manual Diff / Slide Review NO; Basophils Absolute Auto 100 /uL (0-100); Basophils Percent Auto 0.3 % (0-2); Eosinophils Absolute Auto 100 /uL (0-450); Eosinophils Percent Auto 0.2 % (2-4); Hemoglobin 11.3 g/dL (12.0-16.0); Lymphocytes Absolute Auto 3200 /uL (1100-4500); Lymphocytes Percent Auto 12.9 % (25-40); Mean Corpuscular HGB Conc 32.2 % (30-36); Mean Corpuscular Hemoglobin 26.4 PG (26-34); Mean Corpuscular Volume 82.2 fL (80-100); Monocytes Absolute Auto 1900 /uL (0-900); Monocytes Percent Auto 7.6 % (3-14); Neutrophils Absolute Auto 19800 /uL (1500-7000); Platelet Count 130 X10^3/uL (150-400); Red Blood Cell Count 4.26 X10^6/uL (4.0-5.2); Red Cell Distribution Width 17.3 % (11.6-14.8)
[2024-05-03 16:50] LABS: Alanine Aminotransferase 19 IU/L (<35); Albumin 4.6 g/dL (3.5-5.0); Albumin Globulin Ratio 1.8 (1.0-2.8); Alkaline Phosphatase 68 U/L (38-126); Aspartate Aminotransferase 29 IU/L (14-36); BUN Creatinine Ratio 37.2 (6-22); Blood Urea Nitrogen 45 mg/dL (7-17); Calcium 9.8 mg/dL (8.4-10.2); Carbon Dioxide 22 mmol/L (22-32); Chloride 97 mmol/L (98-107); Estimated Glomerular Filt Rate 44 mL/min (>60); Globulin 2.6 g/dL (1.7-4.1); Glucose 145 mg/dL (80-110); HEMOLYSIS 23 (0-50); Lipase 164 U/L (23-300); Potassium 4.4 mmol/L (3.4-5.1); Sodium 131 mmol/L (137-145); Total Protein 7.2 g/dL (6.3-8.2)
--- NOTE | 2024-05-03 18:59 | ED.ABDPAIN ---
HPI - Abdominal Pain General Chief Complaint: Abdominal Pain Stated Complaint: lower abd px Time Seen by Provider: 05/03/24 18:58 Source: patient, RN notes reviewed and old records reviewed Limitations: no limitations History of Present Illness HPI narrative: 83-year-old female with history of ITP, hypertension, atrial fibrillation complaint of rectal pain and right lower quadrant pain for the past 24 hours. Patient states she was has a little bit of discomfort for about a week. No fevers or chills. No nausea or vomiting. Patient describes abdominal pain, lower pelvic and a little bit in the rectal area. She states her flank hurt a little bit yesterday but not today. No chest pain or shortness of breath. She states she has a large bowel movement here which he states he was very hard initially and then a little bit softer but formed there was a small amount of liquidy stool. States there is a small amount of bright red blood but no black or melanotic stools. She relates she has been trying to use suppositories to help her have a bowel movement and she has been constipated until she was here. She states she has not made a lot of urine today but denies any dysuria urgency or frequency. Patient does have some bruising on her right chin she had a dental extraction at the beginning of the week. She has not had any signs of infection. She has been taking [place] 1/2 tablet this week for pain med. Related Data Home Medications Medication Instructions Recorded Confirmed polyethylene glycol 3350 17 gram 17 gm PO BEDTIME Constipation ##0 05/26/17 08/23/23 oral powder packet (Miralax) cholecalciferol (vitamin D3) 25 1 mcg PO DAILY 05/18/23 08/23/23 mcg (1,000 unit) capsule (Vitamin D3) estradiol 0.01% (0.1 mg/gram) 2 g vaginal 2XW 05/18/23 08/23/23 vaginal cream melatonin 3 mg capsule 6 mg PO BEDTIME 05/18/23 08/23/23 multivit with minerals-iron 18 1 tab PO DAILY 05/18/23 08/23/23 mg-folic ac 400 mcg-vit K 25 mcg tablet (Adults Multivitamin) vitamin B complex 1 tab PO DAILY 05/18/23 08/23/23 furosemide 20 mg tablet 10 mg PO DAILY 07/21/23 08/23/23 metoprolol succinate 25 mg 25 mg PO DAILY 07/21/23 08/23/23 tablet,extended release 24 hr pantoprazole 20 mg tablet,delayed 20 mg PO DAILY@0600 PRN Dyspepsia 07/21/23 08/23/23 release bupropion HCl 150 mg 24 hr tablet, 150 mg PO DAILY 11/19/23 11/19/23 extended release lorazepam 0.5 mg tablet 0.5 mg PO DAILY 11/19/23 11/19/23 Previous Rx's Medication Instructions Recorded oxycodone 5 mg tablet 5 mg PO Q6H PRN pain #15 tabs 07/24/23 hydrocodone 5 mg-acetaminophen 325 1 tab PO Q6H PRN pain #10 tabs 05/03/ mg tablet Allergies Allergy/AdvReac Type Severity Reaction Status Date / Time latex Allergy Mild LOCAL RASH Verified 11/19/23 10:02 Penicillins Allergy Mild CHILDHOOD Verified 11/19/23 10:02 Sulfa (Sulfonamide Allergy Mild SOMETHING Verified 11/19/23 10:02 Antibiotics) TO DO WITH BLADDER OR KIDNEY'S?? azithromycin Allergy Verified 11/19/23 10:02 iodine AdvReac Intermediate RAPID Verified 11/19/23 10:02 HEART RATE (IV CONTRAST) Review of Systems Review of Systems ROS Unobtainable: All systems reviewed & are unremarkable except as noted in HPI and below Patient History Medical History SVT (supraventricular tachycardia) Chronic ITP (idiopathic thrombocytopenic purpura) Pulmonary embolism and infarction Chronic steroid use Microscopic hematuria Scoliosis Anxiety Osteoporosis Atrial flutter Hypertension Surgical History History of splenectomy Status post hysterectomy History of tonsillectomy Family History Father Cancer Mother Bleeding disorder Brother Brain cancer Social History marital status: household members: spouse lives independently: Yes Smoking Status: Former smoker alcohol intake: former Smoking Status: Former smoker alcohol intake frequency: holidays/special occasions only Exam Narrative Exam Narrative: GENERAL: Alert and oriented x three, female in mild distress HEENT: Head normocephalic, atraumatic, EOMI, pupils reactive, face symmetric, moist mucous membranes, patient has some ecchymosis of the right lower jaw. NECK: Supple, full range of motion CARDIOVASCULAR: Regular rate and rhythm without murmurs, rubs or gallops. RESPIRATORY: Breath sounds equal bilaterally, no wheezes rales or rhonchi. ABDOMEN: Soft, nontender. Nondistended. Normoactive bowel sounds all 4 quadrants. No guarding or rebound, rigidity, no mass : No CVA tenderness EXTREMITIES: Normal range of motion, no clubbing or edema. Neurovascularly intact NEUROLOGICAL: Cranial nerves II through XII grossly intact. Moving all extremities SKIN: Warm, dry, no petechiae, no rashes or lesions. Initial Vital Signs Initial Vital Signs: Vital Signs Temperature 98.2 F 05/03/24 15:53 Pulse Rate 93 H 05/03/24 15:53 Respiratory Rate 18 05/03/24 15:53 Blood Pressure 125/68 05/03/24 15:53 Pulse Oximetry 99 05/03/24 15:53 Oxygen Delivery Method Room Air 05/03/24 15:53 Course Orders Ordered: ED Orders 05/03/24 18:40 Blood Culture Stat Lactate (Lactic Acid) Stat Procalcitonin Stat 05/03/24 19:15 CT abdomen pelvis wo con Stat Discontinued Medications Hydrocodone Bitart/Acetaminophen (Hydrocodone/Acet 5/325 Tablet) 1 tab PO NOW ONE Stop: 05/03/24 19:16 Last Admin: 05/03/24 19:39 Dose: 1 tab Documented By: DMITRI Sodium Chloride (Normal Saline 0.9%) 500 mls @ 1,000 mls/hr IV BOLUS ONE Stop: 05/03/24 19:44 Last Infusion: 05/03/24 20:24 Dose: Infused Documented By: Admin: 05/03/24 20:02 Dose: 1,000 mls/hr Documented By: DMITRI Ondansetron HCl (Ondansetron 4 Mg/2 Ml Inj) 4 mg IV NOW PRN PRN Reason: Nausea And Vomiting Ondansetron HCl (Ondansetron 4 Mg Odt) 4 mg PO NOW PRN PRN Reason: Nausea And Vomiting Vital Signs Vital signs: Vital Signs - 8 hr 05/03/24 18:00 05/03/24 19:34 05/03/24 19:34 Pulse Rate 82 83 Respiratory Rate 21 25 H Blood Pressure 132/63 Pulse Oximetry 94 96 05/03/24 20:00 05/03/24 20:00 Pulse Rate 78 Respiratory Rate 16 Blood Pressure 124/64 Pulse Oximetry 94 MDM - Abdominal Pain Lab Data 05/03/24 16:00 05/03/24 16:00 Labs: Lab Results 05/03/24 05/03/24 Range/Units 16:00 18:40 WBC 25.0 H (4.5-11.0) X10^3/uL RBC 4.26 (4.0-5.2) X10^6/uL Hgb 11.3 L (12.0-16.0) g/dL Hct 35.0 L (36-46) % MCV 82.2 (80-100) fL MCH 26.4 (26-34) PG MCHC 32.2 (30-36) % RDW 17.3 H (11.6-14.8) % Plt Count 130 L (150-400) X10^3/uL Neut % (Auto) 79.0 H (50-75) % Lymph % (Auto) 12.9 L (25-40) % [place] % (Auto) 7.6 (3-14) % Eos % (Auto) 0.2 L (2-4) % Baso % (Auto) 0.3 (0-2) % Neut # (Auto) 37863 H (9442-1633) /uL Lymph # (Auto) 3200 (8800-8380) /uL [place] # (Auto) 1900 H (0-900) /uL Eos # (Auto) 100 (0-450) /uL Baso # (Auto) 100 (0-100) /uL Sodium 131 L (137-145) mmol/L Potassium 4.4 (3.4-5.1) mmol/L Chloride 97 L (98-107) mmol/L Carbon Dioxide 22 (22-32) mmol/L BUN 45 H (7-17) mg/dL Creatinine 1.21 H (0.52-1.04) mg/dL Estimated GFR 44 L (>60) mL/min BUN/Creatinine Ratio 37.2 H (6-22) Glucose 145 H (80-110) mg/dL Lactate 1.8 (0.7-2.1) mmol/L Calcium 9.8 (8.4-10.2) mg/dL Total Bilirubin 1.0 (0.2-1.3) mg/dL AST 29 (14-36) IU/L ALT 19 (<35) IU/L Alkaline Phosphatase 68 (38-126) U/L Total Protein 7.2 (6.3-8.2) g/dL Albumin 4.6 (3.5-5.0) g/dL Globulin 2.6 (1.7-4.1) g/dL Albumin/Globulin Ratio 1.8 (1.0-2.8) Lipase 164 (23-300) U/L Procalcitonin 0.166 (<0.5) ng/mL ECG Data Attestation: I personally reviewed and interpreted this ECG as follows: Prior ECG tracings: available for review Interpretation: Sinus rhythm rate 83 PA 154 QRS 86 QTC of 425 nonspecific change. Patient was prior from 07/28/2023 no major changes. MDM Narrative Medical decision making narrative: White count of 25 hemoglobin 11.3 platelets of 130. Patient appears to be chronically thrombocytopenic. Sodium is 130 chloride 97 potassium 4.4 CO2 is 22 BUN of 45 creatinine 1.21 patient has been intermittently elevated in the past. Glucose is 145 lactate 1.8 LFTs are negative lipase is 164. EKG shows sinus rhythm nonspecific change. CT abdomen pelvis moderate fecal loading moderate rectal stool ball present rectal wall thickening edema seen in perirectal fat likely stercoral proctocolitis no small-bowel obstruction. Other findings are likely stable and incidental. 83-year-old female with lower abdominal and rectal pain this has a large bowel movement here in the department states she does feel improved still little bit of residual pain. She has a white count of 25 based on extremity of age creatinine of 1.21 which is slightly up from her usual plan for CT abdomen pelvis to evaluate for any infectious source. Patient has allergy to contrast dye does not recall exact allergy so we will obtain CT abdomen pelvis without contrast. Abdominal exam is benign. Patient's CT shows possible Seroquel proctocolitis patient has a moderate fecal loading and moderate rectal stool ball she was actually had very large bowel movement here in the department. [address] Reyes general surgery discussed findings from today patient is actually fairly well-appearing she was actually had a very large bowel movement here that was firm and had improvement with her discomfort after this. Does have a white count of 25 but is nontoxic having bowel movements. We will have patient follow up with the next week for rechecked with return precautions. With goal to continue with regular bowel movements. No recommendation for antibiotics. On recheck patient states she was had another bowel movement was fairly firm quite a fair amount she has continued improvement of her discomfort. She was having regular bowel movements she has been taking some narcotic pain medication we will have her continue with regimen to help continue with regular stools did discuss if she was having worsening symptoms she does not need to return for re-evaluation and to follow up with General surgery for repeat evaluation. Patient feels comfortable with this plan she was nontoxic otherwise well-appearing and a dose leukocytosis of 25. She was sent blood cultures pending. Discharge Plan Departure Patient Disposition: Home Clinical Impression: Proctocolitis Activity Restrictions/Additional Instructions: Your workup today does show some rectal wall thickening and edema this can be called proctocolitis because you are having some large bowel movements and stooling regularly we do not have to do any other interventions at this time but I would like you to take a stool softener regularly such as Colace once or twice daily especially while you are taking any narcotic pain medication to make sure you are having regular bowel movements. I would recommend that you follow up with General surgery to have a rechecked as there is thickening in that area they may have further imaging or evaluation in the future. Please call to set up a follow up appointment, contact information below. Please return if you develop fevers, if your pain is worsening, if you have any vomiting, if you are having black or bloody stools, difficulty with urination or other new or concerning changes. Prescriptions: New hydrocodone-acetaminophen 5-325 mg tablet 1 tab PO Q6H PRN (Reason: pain) Qty: 10 0RF No Action lorazepam 0.5 mg tablet 0.5 mg PO DAILY bupropion HCl 150 mg tablet extended release 24 hr 150 mg PO DAILY polyethylene glycol 3350 [Miralax] 17 GM powder in packet 17 gm PO BEDTIME Qty: 0 estradiol 0.01 % (0.1 mg/gram) cream 2 g vaginal 2XW Patient Comments: takes sundays and wednesdays vitamin B complex Tablet 1 tab PO DAILY cholecalciferol (vitamin D3) [Vitamin D3] 25 mcg (1,000 unit) Capsule 1 mcg PO DAILY Adults Multivitamin 18 mg iron-400 mcg-25 mcg Tablet 1 tab PO DAILY melatonin 3 mg Capsule 6 mg PO BEDTIME furosemide 20 mg tablet 10 mg PO DAILY metoprolol succinate 25 mg tablet extended release 24 hr 25 mg PO DAILY pantoprazole 20 mg Tablet,Delayed Release (Dr/Ec) 20 mg PO DAILY@0600 PRN (Reason: Dyspepsia) oxycodone 5 mg tablet 5 mg PO Q6H PRN (Reason: pain) Qty: 15 0RF Referrals: Demetrio Reyes MD [Physician] - Jayson Machado MD [Primary Care Provider] - Stand Alone Forms: Patient Portal/API/Survey
[2024-05-03 19:13] LABS: Lactate (Lactic Acid) 1.8 mmol/L (0.7-2.1)
--- NOTE | 2024-05-03 19:15 | DI.CT.S_ITS ---
PROCEDURE: CT ABDOMEN PELVIS WO CON INDICATIONS: abd pain, rectal pain TECHNIQUE: Axial sections were acquired from the lung bases to the pubic symphysis. Coronal and sagittal reformats were performed. For radiation dose reduction, the following was used: automated exposure control, adjustment of mA and/or kV according to patient size. COMPARISON: [facility], CT, CT ABDOMEN PELVIS WO CON, 06/30/2023, 12:12. [facility], CT, CT CHEST ABDOMEN PELVIS WITHOUT CONTRAST, 10/31/2023, 23:45. FINDINGS: Image quality: Diagnostic Lower chest: Bibasal atelectasis. No pleural effusions. Trace hiatal hernia. Coronary and annular cardiac calcifications. Liver: Similar elevation of the right hemidiaphragm. Solid organs are not well assessed without IV contrast. No contour deforming mass Gallbladder and biliary system: Unremarkable, nondilated Pancreas: No ductal dilation. Possible focal atrophy again seen in the mid body. Spleen: Absent Adrenals: No discrete nodules Kidneys: No contour deforming mass. No hydronephrosis. Vessels and lymph nodes: Atherosclerotic calcifications. No abdominal aortic aneurysm. No definite enlarged lymph nodes by size criteria. Bowel and peritoneum: No small bowel obstruction. No drainable abscess or ascites. There is moderate rectal wall thickening with surrounding edematous fat stranding. A moderate rectal stool ball is also seen. Colonic diverticula. Moderate colonic fecal loading. Body wall: Unremarkable Pelvis: Bladder is unremarkable. Uterus is not seen Bones: There are degenerative changes. No aggressive appearing osseous abnormality. Leftward spinal scoliosis. T9 vertebra plana again seen. Probably old left rib fractures are also present. IMPRESSION: Moderate fecal loading and a moderate rectal stool ball are present. Rectal wall thickening and edema seen in the perirectal fat, likely stercoral proctocolitis. No small bowel obstruction Other findings as above on this limited noncontrast CT, likely stable and incidental. Dictated by: Darsahn Quiroga M.D. on 05/03/2024 at 19:41 Approved by: Darshan Quiroga M.D. on 05/03/2024 at 19:46
[2024-05-03 19:35] LABS: Procalcitonin 0.166 ng/mL (<0.5)
[2024-05-03] MEDS: HYDROCODONE/ACET 5/325 TABLET 1 TAB PO (19:39)
[2024-05-03] MEDS: SODIUM CHLORIDE 0.9% 500 ML 1000 ML IV (20:02)
== END 2024-05-03 21:01 | disposition home or self-care (01) ==
PROVIDERS: Emergency Medicine; Emergency Provider Emergency Medicine; Family Provider Physician Assistant; PCP Family Medicine
DX: K52.9 Noninfective gastroenteritis and colitis, unspecified (principal); K62.89 Other specified diseases of anus and rectum
CPT/HCPCS: 36415; 74176; 80053; 83605; 83690; 84145; 85025; 87040; 93005; 99284

== ENCOUNTER 2024-05-07 10:15 | Emergency (ER) | payer MEDICARE, OTHER, SELFPAY ==
[2023-05-18 13:38] VITALS: BMI 20.9
[2024-05-07 10:25] VITALS: BP 147/80; PULSE 107; RESP 14; TEMP 36.5; O2SAT 96; BMI 18.8
[2024-05-07 11:33] VITALS: PULSE 95; RESP 18; O2SAT 97
--- NOTE | 2024-05-07 12:18 | ED.SKABFB ---
HPI - Skin/Abscess/Foreign Bdy General Chief complaint: Skin/Abscess/Foreign Body Stated complaint: Pain in vaginal area Swelling ,bumps Time Seen by Provider: 05/07/24 11:29 Source: patient Mode of arrival: Ambulatory History of Present Illness HPI narrative: This is an 83-year-old woman with history of proctocolitis diagnosed a few days ago in this emergency department, presenting with concern for rectal pain and discomfort. Patient states that she has been having bowel movements in fact had 1 this morning and had multiple smaller movements overnight. She initially stated that she was trying to have a bowel movement all night and up most of the night but then acknowledged that she has had multiple bowel movements including 1 moderately reasonably sized 1 this morning that she said was soft. She does state she has not gone to nut picker the recommended medications to help loosen her stools after her recent ER visit. She is here today because she was concerned that her rectal area is painful she describes a burning sensation there and would like to have the area checked as she was concerned she could possibly have herpes there. 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 She denies any other new complaints or concerns. Related Data Home Medications Medication Instructions Recorded Confirmed polyethylene glycol 3350 17 gram 17 gm PO BEDTIME Constipation ##0 05/26/17 08/23/23 oral powder packet (Miralax) cholecalciferol (vitamin D3) 25 1 mcg PO DAILY 05/18/23 08/23/23 mcg (1,000 unit) capsule (Vitamin D3) estradiol 0.01% (0.1 mg/gram) 2 g vaginal 2XW 05/18/23 08/23/23 vaginal cream melatonin 3 mg capsule 6 mg PO BEDTIME 05/18/23 08/23/23 multivit with minerals-iron 18 1 tab PO DAILY 05/18/23 08/23/23 mg-folic ac 400 mcg-vit K 25 mcg tablet (Adults Multivitamin) vitamin B complex 1 tab PO DAILY 05/18/23 08/23/23 furosemide 20 mg tablet 10 mg PO DAILY 07/21/23 08/23/23 metoprolol succinate 25 mg 25 mg PO DAILY 07/21/23 08/23/23 tablet,extended release 24 hr pantoprazole 20 mg tablet,delayed 20 mg PO DAILY@0600 PRN Dyspepsia 07/21/23 08/23/23 release bupropion HCl 150 mg 24 hr tablet, 150 mg PO DAILY 11/19/23 11/19/23 extended release lorazepam 0.5 mg tablet 0.5 mg PO DAILY 11/19/23 11/19/23 clindamycin palmitate HCl 75 mg/5 PO 05/07/24 mL oral solution mycophenolate mofetil 500 mg tablet 500 mg PO BID 05/07/24 prednisone 5 mg tablet mg PO 05/07/24 Previous Rx's Medication Instructions Recorded oxycodone 5 mg tablet 5 mg PO Q6H PRN pain #15 tabs 07/24/23 hydrocodone 5 mg-acetaminophen 325 1 tab PO Q6H PRN pain #10 tabs 05/03/24 mg tablet hydrocortisone 2.5 % topical cream 1 applic TX BID-QID PRN pain 7 05/07/24 with perineal applicator days #30 grams (Proctosol HC) lidocaine 5 % topical ointment 1 applic topical TID PRN pain 7 05/07/24 days #30 grams Allergies Allergy/AdvReac Type Severity Reaction Status Date / Time latex Allergy Mild LOCAL RASH Verified 05/07/24 10:25 Penicillins Allergy Mild CHILDHOOD Verified 05/07/24 10:25 Sulfa (Sulfonamide Allergy Mild SOMETHING Verified 05/07/24 10:25 Antibiotics) TO DO WITH BLADDER OR KIDNEY'S?? azithromycin Allergy Verified 05/07/24 10:25 iodine AdvReac Intermediate RAPID Verified 05/07/24 10:25 HEART RATE (IV CONTRAST) Review of Systems Review of Systems Narrative: See HPI Patient History Medical History SVT (supraventricular tachycardia) Chronic ITP (idiopathic thrombocytopenic purpura) Pulmonary embolism and infarction Chronic steroid use Microscopic hematuria Scoliosis Anxiety Osteoporosis Atrial flutter Hypertension Surgical History History of splenectomy Status post hysterectomy History of tonsillectomy Family History Father Cancer Mother Bleeding disorder Brother Brain cancer Social History marital status: household members: spouse lives independently: Yes Smoking Status: Former smoker alcohol intake: former Smoking Status: Former smoker alcohol intake frequency: holidays/special occasions only Exam Narrative Exam Narrative: GENERAL: [83] year old patient appears stated age. Well-developed patient, in mild distress. HEAD: Atraumatic. Normocephalic. EYES: Pupils equal round and reactive. Extraocular motions intact. No scleral icterus. No injection or drainage. ENT: Nose without bleeding, purulent drainage. Airway patent. NECK: Trachea midline. CARDIOVASCULAR: Regular rate and rhythm without murmurs, gallops, or rubs. RESPIRATORY: Clear to auscultation. Breath sounds equal bilaterally. No wheezes, rales, or rhonchi. GASTROINTESTINAL: There is very mild suprapubic tenderness, otherwise abdomen is soft, non-tender, nondistended. : [employer] Equipment [employer]r CAROLYNN Pereira present for exam. Limited exam of external genitalia and rectal area only. The area around the rectum is slightly irritated appearing possibly consistent with a developing subtle rash. There are no lesions noted, no open skin and no blisters noted. There is a thin tendril of tissue approximately 1 cm long protruding from the rectum consistent with a hemorrhoid. It is not tender or inflamed appearing. Vaginal area is without erythema or inflammation. EXTREMITIES: There is bilateral lower extremity edema and venous stasis changes of the lower extremities at baseline per patient. No other edema or joint tenderness. BACK: Nontender without deformity or crepitance. No flank tenderness. NEURO: AOx3. SKIN: No rash or erythema of visible areas Initial Vital Signs Initial Vital Signs: Vital Signs Temperature 97.7 F 05/07/24 10:25 Pulse Rate 107 H 05/07/24 10:25 Respiratory Rate 14 05/07/24 10:25 Blood Pressure 147/80 H 05/07/24 10:25 Pulse Oximetry 96 05/07/24 10:25 Oxygen Delivery Method Room Air 05/07/24 10:25 Course Orders Ordered: ED Orders 05/07/24 12:40 Urine Culture Stat Urine Microscopic Stat Vital Signs Vital signs: Vital Signs - 8 hr 05/07/24 13:29 Pulse Rate 108 H Respiratory Rate 16 Blood Pressure 140/91 H Pulse Oximetry 96 Oxygen Delivery Method Room Air MDM - Skin/Abscess/Foreign Bdy Differential Diagnosis Differential diagnosis: Likely abscess of skin or subcutaneous tissue and other (rash, hemorrhoid, rectal pain) Medical Records Attestation: I reviewed the patient's medical records. Lab Data Attestation: I reviewed the patient's lab results. Labs: Lab Results 05/07/24 Range/Units 12:40 Urine RBC 0-1/hpf (0-5/HPF) Urine WBC 5-10/hpf H (0-5/HPF) Ur Squamous Epith Cells None seen (0-5/HPF) Urine Bacteria Occasional (0-1) (None) Ur Culture Indicated? Cult not indicated Vol Urine Centrifuged 10ml (spun) Urine Dip Bedside Urine Glucose Negative Bedside Urine Bilirubin - Negative Bedside Urine Ketone - Negative Urine Specific Glen 1.010 Bedside Urine Occult Blood +/- Bedside Urine pH 6.0 Bedside Urine Protein - Negative Bedside Urine Urobilinogen - Negative Bedside Urine Nitrite - Negative Bedside Urine Leukocytes ++ 125 Esterase MDM Narrative Medical decision making narrative: This is an 83-year-old woman with a history of recently diagnosed proctocolitis seen in this emergency department 2 days prior presenting with concern for rectal/anal discomfort-burning. She has been having bowel movements despite not taking her recommended stool softener regimen. Patient endorses specifically a possible concern for herpes as she has had oral herpes before and states she has a burning sensation in the rectal area. Exam of the area is not suspicious for herpes or infectious process. She does have a hemorrhoid present/small noninflamed and nontender hemorrhoid vs skin tag protruding from the rectal area, and mild generalized tenderness of the anus. Prescription for Anusol and topical lidocaine. Patient on exam did also have some mild suprapubic tenderness and urinalysis was obtained. Urine microscopic does not suggest a UTI and she did not endorse any symptoms of this. Patient was encouraged to take the prescribed and recommended medications to help with stooling. Repeat labs and imaging were not obtained today. Did review the patient's chart, she had an extensive workup 2 days ago in the emergency department including abdominal CT which was reviewed. Return precautions provided, follow-up plan discussed, all questions answered. Discharge Plan Departure Patient Disposition: Home Clinical Impression: Anal or rectal pain Activity Restrictions/Additional Instructions: *You have been diagnosed with [rectal pain, hemorrhoid] *What to do: *Please continue to take your regular medications as directed. [ 2] New medication prescriptions sent to your pharmacy: [ ] [ ] New medication written as a paper prescription [ ] No new medications given *Please follow up with your primary care provider in 2-3 days, call for an appointment. Let them know you were seen in the Emergency Department and that we ask that you be seen in follow up. We will electronically transmit a record of today's note if your PCP is in our system. I have prescribed 2 new medications, one is a pain reliever (lidocaine) and one is an anti-inflammatory (hydrocortisone), both to be used topically in the rectal area. Your exam today is not suggestive of herpes, which you were worried about today. You are having some pain in the rectal area and I do think that taking the medications recommended and prescribed by the doctor you saw a few days ago in the emergency department is advisable it sounds like you are having regular bowel movements but you are sometimes sitting on the toilet are spending a lot of time waiting to have a bowel movement. Please take the MiraLax that was prescribed, she also recommended Colace which you can get OTC. I think if you are having more regular bowel movements that will be helpful to improve your rectal discomfort until the inflammation in her colon goes down from your proctocolitis. I do recommend he follow up with your primary care provider. If you continue to have rectal pain or concerns seeing a general surgeon as an outpatient is reasonable as well. I hope you feel better soon. Your medications today were sent in to the [facility] at your request. *If you do not have a primary care provider please contact the [facility] Resource line at [phone]. They will ask some questions about your medical history and help get you set up with a doctor in the community. *Return to Emergency Department if you should have any new, worsening or concerning symptoms, such as [fever greater than 101 F, shaking chills, worsening pain, persistent vomiting or other bothersome symptoms] Prescriptions: New hydrocortisone [Proctosol HC] 2.5 % cream with perineal applicator 1 applic TX BID-QID PRN (Reason: pain) 7 Days Qty: 30 0RF lidocaine 5 % ointment 1 applic topical TID PRN (Reason: pain) 7 Days Qty: 30 0RF No Action lorazepam 0.5 mg tablet 0.5 mg PO DAILY bupropion HCl 150 mg tablet extended release 24 hr 150 mg PO DAILY polyethylene glycol 3350 [Miralax] 17 GM powder in packet 17 gm PO BEDTIME Qty: 0 mycophenolate mofetil 500 mg tablet 500 mg PO BID prednisone 5 mg tablet PO clindamycin palmitate HCl 75 mg/5 mL recon soln PO estradiol 0.01 % (0.1 mg/gram) cream 2 g vaginal 2XW Patient Comments: takes sundays and wednesdays vitamin B complex Tablet 1 tab PO DAILY cholecalciferol (vitamin D3) [Vitamin D3] 25 mcg (1,000 unit) Capsule 1 mcg PO DAILY Adults Multivitamin 18 mg iron-400 mcg-25 mcg Tablet 1 tab PO DAILY melatonin 3 mg Capsule 6 mg PO BEDTIME furosemide 20 mg tablet 10 mg PO DAILY metoprolol succinate 25 mg tablet extended release 24 hr 25 mg PO DAILY pantoprazole 20 mg Tablet,Delayed Release (Dr/Ec) 20 mg PO DAILY@0600 PRN (Reason: Dyspepsia) oxycodone 5 mg tablet 5 mg PO Q6H PRN (Reason: pain) Qty: 15 0RF hydrocodone-acetaminophen 5-325 mg tablet 1 tab PO Q6H PRN (Reason: pain) Qty: 10 0RF Referrals: Jayson Machado MD [Primary Care Provider] - Stand Alone Forms: Patient Portal/API/Survey
--- NOTE | 2024-05-07 13:17 | PC.NURSE ---
Pt seen and assessed by the provider prior to this RN able to do assessment.
[2024-05-07 13:29] VITALS: BP 140/91; PULSE 108; RESP 16; O2SAT 96
[2024-05-07 13:48] LABS: RBC Urine 0-1/HPF (0-5/HPF); Urine Volume 10mL (spun); WBC Urine 5-10/HPF (0-5/HPF)
[2024-05-07 13:49] LABS: Bacteria Urine Occasional (0-1); Culture Indicated Urine Cult Not Indicated; Squamous Epithelial Cell Urine None Seen (0-5/HPF)
== END 2024-05-07 13:31 | disposition home or self-care (01) ==
PROVIDERS: Emergency Provider Student in an Organized Health Care Education/Training Program; Family Provider Physician Assistant; PCP Family Medicine
DX: K62.89 Other specified diseases of anus and rectum (principal)
CPT/HCPCS: 81003; 81015; 87077; 87086; 87186; 99282

== ENCOUNTER → 2024-10-27 15:10 | Outpatient (CLI) | payer MEDICARE, OTHER, SELFPAY ==
[2023-05-18 13:38] VITALS: BMI 20.9
--- NOTE | 2024-10-27 15:12 | DI.US.S_ITS ---
PROCEDURE: US PERIPH VENOUS LOW EXTREM LT INDICATIONS: EDEMA TECHNIQUE: Real-time imaging, as well as color and pulse Doppler interrogation, were performed of the lower extremity deep veins from the inguinal ligament to the popliteal fossa, with documentation of the visualized calf veins. COMPARISON: None. FINDINGS: The common femoral, femoral, popliteal, and the visualized calf veins are normally compressible, and free of intraluminal thrombus. Color and pulse Doppler demonstrate normal phasic intraluminal flow. There is normal augmentation response to distal compression maneuver. IMPRESSION: No findings of lower extremity deep venous thrombosis. Dictated by: Pepito Styles M.D. on 10/29/2024 at 10:19 Approved by: Pepito Styles M.D. on 10/29/2024 at 10:19
== END ==
LOC: US 15:11
PROVIDERS: Family Provider Physician Assistant; PCP Family Medicine; Referring Provider Family Medicine; Visit Provider Physician Assistant
DX: M79.89 Other specified soft tissue disorders (principal)
CPT/HCPCS: 93971

== ENCOUNTER 2024-11-07 12:22 | Emergency (ER) | payer MEDICARE, OTHER, SELFPAY ==
[2023-05-18 13:38] VITALS: BMI 20.9
[2024-11-07 12:26] VITALS: BP 175/88; PULSE 87; RESP 18; TEMP 37.1; O2SAT 97; BMI 18.4
--- NOTE | 2024-11-07 13:48 | ED.DENTAL ---
HPI - Dental/Oral General Chief complaint: Dental/Oral Stated complaint: teeth extracted might be infected Time Seen by Provider: 11/07/24 13:40 Source: patient Mode of arrival: Ambulatory History of Present Illness HPI Narrative: Patient is a 84-year-old female history of significant ITP has had multiple rounds of IVIG presenting to day after a dental extraction. She had all her teeth pulled about 2 days ago up in [place]. She is concerned she has a hematoma that might need to be lanced. She has no airway compromise no tongue swelling no lip swelling. She has symptoms bruising all in her chin. She is drinking fluids staying hydrated she reports her pain is controlled. No fever. Her dentist recommended that she come here for evaluation. She says that her platelets have been controlled and they were checked last week. Related Data Home Medications ?Medication ?Instructions ?Recorded ?Confirmed polyethylene glycol 3350 17 gram 17 gm PO BEDTIME Constipation ##0 05/26/17 06/15/24 oral powder packet (Miralax) cholecalciferol (vitamin D3) 25 1 mcg PO DAILY 05/18/23 06/15/24 mcg (1,000 unit) capsule (Vitamin D3) estradiol 0.01% (0.1 mg/gram) 2 g vaginal 2XW 05/18/23 06/15/24 vaginal cream melatonin 3 mg capsule 6 mg PO BEDTIME 05/18/23 06/15/24 multivit with minerals-iron 18 1 tab PO DAILY 05/18/23 06/15/24 mg-folic ac 400 mcg-vit K 25 mcg tablet (Adults Multivitamin) vitamin B complex 1 tab PO DAILY 05/18/23 06/15/24 furosemide 20 mg tablet 10 mg PO DAILY 07/21/23 06/15/24 metoprolol succinate 25 mg 25 mg PO DAILY 07/21/23 06/15/24 tablet,extended release 24 hr pantoprazole 20 mg tablet,delayed 20 mg PO DAILY@0600 PRN Dyspepsia 07/21/23 06/15/24 release bupropion HCl 150 mg 24 hr tablet, 150 mg PO DAILY 11/19/23 06/15/24 extended release lorazepam 0.5 mg tablet 0.5 mg PO DAILY 11/19/23 06/15/24 mycophenolate mofetil 500 mg tablet 500 mg PO BID 05/07/24 06/15/24 prednisone 5 mg tablet mg PO 05/07/24 06/15/24 lidocaine 5 % topical ointment topical 3XD PRN pain 06/15/24 06/15/24 Previous Rx's ?Medication ?Instructions ?Recorded oxycodone 5 mg tablet 5 mg PO Q6H PRN pain #15 tabs 07/24/23 hydrocodone 5 mg-acetaminophen 325 1 tab PO Q6H PRN pain #10 tabs 05/03/24 mg tablet hydrocodone 5 mg-acetaminophen 325 1 tab PO Q6H PRN pain #10 tabs 11/07/24 mg tablet Allergies Allergy/AdvReac Type Severity Reaction Status Date / Time latex Allergy Mild LOCAL RASH Verified 06/15/24 09:28 Penicillins Allergy Mild CHILDHOOD Verified 06/15/24 09:28 Sulfa (Sulfonamide Allergy Mild SOMETHING Verified 06/15/24 09:28 Antibiotics) TO DO WITH BLADDER OR KIDNEY'S?? azithromycin Allergy Verified 06/15/24 09:28 iodine AdvReac Intermediate RAPID Verified 06/15/24 09:28 HEART RATE (IV CONTRAST) Patient History Medical History SVT (supraventricular tachycardia) Chronic ITP (idiopathic thrombocytopenic purpura) Pulmonary embolism and infarction Chronic steroid use Microscopic hematuria Scoliosis Anxiety Osteoporosis Atrial flutter Hypertension Surgical History History of splenectomy Status post hysterectomy History of tonsillectomy Family History Father Cancer Mother Bleeding disorder Brother Brain cancer Social History marital status: household members: spouse lives independently: Yes Smoking Status: Never smoker alcohol intake: former Smoking Status: Never smoker alcohol intake frequency: holidays/special occasions only Exam Initial Vital Signs Initial Vital Signs: Vital Signs Temperature 98.7 F 11/07/24 12:26 Pulse Rate 87 11/07/24 12:26 Respiratory Rate 18 11/07/24 12:26 Blood Pressure 175/88 H 11/07/24 12:26 Pulse Oximetry 97 11/07/24 12:26 Oxygen Delivery Method Room Air 11/07/24 12:26 GENERAL: Alert 84-year-old female and in no acute distress. HEENT: Head atraumatic,EOMI, pupils reactive, contusion over chin, no significant swelling PHARYNX: All teeth have been removed there is no tongue swelling no lip swelling she has some inner cheek contusions but not fluctuant airway is patent CARDIOVASCULAR: Regular rate and rhythm without murmurs, rubs or gallops. RESPIRATORY: Breath sounds equal bilaterally, no wheezes rales or rhonchi. EXTREMITIES: Normal range of motion, no clubbing or edema. Neurovascularly intact NEUROLOGICAL: Alert and oriented x4.Normal gait and speech. Cranial nerves II through XII grossly intact. SKIN: Warm, dry, no laceration, no petechiae, no rashes or lesions. Course Orders Ordered: ED Orders 11/07/24 14:00 CBC Auto Diff [Complete Blood Count AUTO DIFF] Stat Discontinued Medications Hydrocodone Bitart/Acetaminophen (Hydrocodone/Acet 5/325 Tablet) 1 tab PO NOW ONE Stop: 11/07/24 14:20 Last Admin: 11/07/24 14:24 Dose: 1 tab Documented By: JARED Vital Signs Vital signs: Vital Signs - 8 hr 11/07/24 12:26 11/07/24 14:37 Temperature 98.7 F Pulse Rate 87 88 Respiratory Rate 18 12 Blood Pressure 175/88 H 187/103 H Pulse Oximetry 97 96 Oxygen Delivery Method Room Air Room Air MDM - Dental/Oral Lab Data 11/07/24 14:00 Labs: Lab Results 11/07/24 Range/Units 14:00 WBC 9.2 (4.5-11.0) X10^3/uL RBC 4.17 (4.0-5.2) X10^6/uL Hgb 13.3 (12.0-16.0) g/dL Hct 38.7 (36-46) % MCV 92.8 (80-100) fL MCH 31.9 (26-34) PG MCHC 34.4 (30-36) % RDW 15.4 H (11.6-14.8) % Plt Count 96 L (150-400) X10^3/uL Neut % (Auto) 61.8 (50-75) % Lymph % (Auto) 22.2 L (25-40) % [place] % (Auto) 11.2 (3-14) % Eos % (Auto) 3.0 (2-4) % Baso % (Auto) 1.8 (0-2) % Neut # (Auto) 5700 (7569-9096) /uL Lymph # (Auto) 2000 (3376-4580) /uL [place] # (Auto) 1000 H (0-900) /uL Eos # (Auto) 300 (0-450) /uL Baso # (Auto) 200 H (0-100) /uL MDM Narrative Medical decision making narrative: Patient 84-year-old female history of significant ITP presenting today with mouth contusion. She has no airway compromise no significant swelling. Managing her own secretions she has been drinking fluid without any difficulty. She does have pretty significant bleeding and bruising. Platelets are found to be 96. We do not have recent blood work last blood work we have is from 05/03/2024 which showed platelets of 130. She is not anemic. At this time no indication for any further intervention. Supportive care follow up with repeat CBC next week. No evidence of infection no need for antibiotics. Close follow up with dentist. Patient was prescribed liquid oxycodone she is unaware of this. It tried to give her Bath pill here in the ED she had some difficulty swallowing it. Discussed with her recommend she talk with her dentist and mask aware her liquid medication is. Discharge Plan Departure Patient Disposition: Home Clinical Impression: Thrombocytopenia Instructions: DI for Dental Pain Activity Restrictions/Additional Instructions: *You have been diagnosed with dental pain thrombocytopenia *What to do: At this time your platelets today are 96. Please follow-up and have repeat blood work this week *Continue to take medications as directed Bath 1 tablet every 6 hours only if needed for severe pain *Follow up with your primary care provider in 2-3 days or call [phone] *Return to ER if you should have increased difficulty breathing swallowing swelling [or] any new, worsening or concerning symptoms CONTROLLED SUBSTANCE DISCHARGE (Narcotoic/benzodiazepine/Flexeril/Phenergan) 1. You have been prescribed narcotic medications, it does have acetaminophen/Tylenol/paracetamol in it, DO NOT TAKE MORE THAN 4,00mg in 24 hours of Tylenol. TRAMADOL DOES NOT CONTAIN TYLENOL 2. Please understand that we cannot provide further refills of narcotics, benzodiazepines or controlled substances through the ED and her pain management will need to be through your provider. 3. While on these medications you cannot drive or operate heavy machinery. 4. You cannot sign legal documents or perform any duties such as this. 5. As long as you're taking opiate pain medications he should also be taking a stool softener such as Colace, Dulcolax, MiraLAX or prune juice, to help avoid constipation. Prescriptions: New hydrocodone-acetaminophen 5-325 mg tablet 1 tab PO Q6H PRN (Reason: pain) Qty: 10 0RF No Action lorazepam 0.5 mg tablet 0.5 mg PO DAILY bupropion HCl 150 mg tablet extended release 24 hr 150 mg PO DAILY lidocaine 5 % ointment topical 3XD PRN (Reason: pain) polyethylene glycol 3350 [Miralax] 17 GM powder in packet 17 gm PO BEDTIME Qty: 0 mycophenolate mofetil 500 mg tablet 500 mg PO BID prednisone 5 mg tablet PO estradiol 0.01 % (0.1 mg/gram) cream 2 g vaginal 2XW Patient Comments: takes sundays and wednesdays vitamin B complex Tablet 1 tab PO DAILY cholecalciferol (vitamin D3) [Vitamin D3] 25 mcg (1,000 unit) Capsule 1 mcg PO DAILY Adults Multivitamin 18 mg iron-400 mcg-25 mcg Tablet 1 tab PO DAILY melatonin 3 mg Capsule 6 mg PO BEDTIME furosemide 20 mg tablet 10 mg PO DAILY metoprolol succinate 25 mg tablet extended release 24 hr 25 mg PO DAILY pantoprazole 20 mg Tablet,Delayed Release (Dr/Ec) 20 mg PO DAILY@0600 PRN (Reason: Dyspepsia) oxycodone 5 mg tablet 5 mg PO Q6H PRN (Reason: pain) Qty: 15 0RF hydrocodone-acetaminophen 5-325 mg tablet 1 tab PO Q6H PRN (Reason: pain) Qty: 10 0RF Referrals: Jayson Machado MD [Primary Care Provider, Family Practice] Stand Alone Forms: Patient Portal/API
[2024-11-07 14:06] LABS: Add Manual Diff / Slide Review NO; Hematocrit 38.7 % (36-46); Hemoglobin 13.3 g/dL (12.0-16.0); Lymphocytes Absolute Auto 2000 /uL (1100-4500); Mean Corpuscular HGB Conc 34.4 % (30-36); Mean Corpuscular Hemoglobin 31.9 PG (26-34); Mean Corpuscular Volume 92.8 fL (80-100); Platelet Count 96 X10^3/uL (150-400)
[2024-11-07 14:37] VITALS: BP 187/103; PULSE 88; RESP 12; O2SAT 96
== END 2024-11-07 14:40 | disposition home or self-care (01) ==
PROVIDERS: Emergency Provider Emergency Medicine; Family Provider Physician Assistant; PCP Family Medicine
DX: K08.89 Other specified disorders of teeth and supporting structures (principal); D69.6 Thrombocytopenia, unspecified
CPT/HCPCS: 85025; 99283

== ENCOUNTER 2025-01-10 15:17 | Emergency (ER) | payer MEDICARE, OTHER, SELFPAY ==
[2023-05-18 13:38] VITALS: BMI 20.9
[2025-01-10 15:29] VITALS: BP 137/94; PULSE 78; RESP 16; TEMP 36.3; O2SAT 96; BMI 18.1
--- NOTE | 2025-01-10 15:41 | EKG_ITS ---
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
--- NOTE | 2025-01-10 15:48 | DI.US.S_ITS ---
PROCEDURE: US PERIP VENOUS LOW EXTREM LT INDICATIONS: chronic swelling. TECHNIQUE: Real-time imaging, as well as color and pulse Doppler interrogation, were performed of the lower extremity deep veins from the inguinal ligament to the popliteal fossa, with documentation of the visualized calf veins. COMPARISON: [facility], , [facility] VENOUS LOW EXTREM LT, 10/27/2024, 15:26. FINDINGS: The common femoral, femoral, popliteal, and the visualized calf veins are normally compressible, and free of intraluminal thrombus. Color and pulse Doppler demonstrate normal phasic intraluminal flow. There is normal augmentation response to distal compression maneuver. IMPRESSION: No findings of lower extremity deep venous thrombosis. Dictated by: Rahul Santoyo M.D. on 01/10/2025 at 16:32 Approved by: Rahul Santoyo M.D. on 01/10/2025 at 16:33
--- NOTE | 2025-01-10 15:49 | DI.RAD.S_ITS ---
PROCEDURE: XR CHEST 1V INDICATIONS: sent for ? arrhythmia TECHNIQUE: One view of the chest was acquired. COMPARISON: [facility], CR, XR CHEST 2V, 07/24/2023, 11:36. FINDINGS: Surgical changes and devices: None. Lungs and pleura: Lungs are clear. No pleural effusions or pneumothorax. Mediastinum: Mediastinal contours appear normal. Heart size is enlarged. Bones and chest wall: Moderate S shaped scoliosis of thoracic and lumbar spine is seen. No suspicious bony lesions. Overlying soft tissues appear unremarkable. IMPRESSION: No acute cardiopulmonary pathology. Moderate scoliosis unchanged from prior study. Dictated by: Rahul Santoyo M.D. on 01/10/2025 at 16:07 Approved by: Rahul Santoyo M.D. on 01/10/2025 at 16:08
--- NOTE | 2025-01-10 15:49 | EKG_ITS ---
[address] [address] Test Date: 2025-01-10 Pat Name: Priscilla Mahan Department: [facility] Room: Gender: Female [employer]her: JOSE ALFREDO : 1940 Requested By: Order Number: [id number] Reading MD: Omari Bo Measurements Intervals [place] Rate: 65 P: 46 DE: 152 QRS: -18 QRSD: 88 T: 1 QT: 412 QTc: 428 Interpretive Statements Normal sinus rhythm T wave abnormality, consider lateral ischemia Electronically Signed On 01-15-2025 12:27:19 PST by Omari Bo
--- NOTE | 2025-01-10 15:50 | ED.ARRPALP ---
HPI - Arrhythmia/Palpitations General Chief Complaint: Arrhythmia/Palpitations Stated Complaint: pc sent arrhythmia Time Seen by Provider: 01/10/25 15:48 Source: patient, RN notes reviewed and old records reviewed Mode of arrival: Wheelchair Limitations: no limitations History of Present Illness HPI narrative: 84-year-old female history of ITP with multiple rounds of IVIG currently on prednisone 10 mg daily, metoprolol presents complaint of possible arrhythmia. Patient states she was having an infusion today for her ITP was told she should have her heart checked. She states she is notes some palpitations at home particularly at nighttime she has sometimes felt a little bit dizzy. She has not had any syncope. She notes occasional chest discomfort. She denies any new shortness of breath. No nausea or vomiting. No syncope. No loss of bowel or bladder control. No new bleeding that she is appreciated. She notes longstanding chronic swelling of her left lower extremity. She states that has never been imaged. Patient does note that she has been out of her metoprolol for the past 4 days she refilled it today. But has not taken it yet. She also started a new oral medication for her ITP. Related Data Home Medications ?Medication ?Instructions ?Recorded ?Confirmed polyethylene glycol 3350 17 gram 17 gm PO BEDTIME Constipation ##0 05/26/17 06/15/24 oral powder packet (Miralax) cholecalciferol (vitamin D3) 25 1 mcg PO DAILY 05/18/23 06/15/24 mcg (1,000 unit) capsule (Vitamin D3) estradiol 0.01% (0.1 mg/gram) 2 g vaginal 2XW 05/18/23 06/15/24 vaginal cream melatonin 3 mg capsule 6 mg PO BEDTIME 05/18/23 06/15/24 multivit with minerals-iron 18 1 tab PO DAILY 05/18/23 06/15/24 mg-folic ac 400 mcg-vit K 25 mcg tablet (Adults Multivitamin) vitamin B complex 1 tab PO DAILY 05/18/23 06/15/24 furosemide 20 mg tablet 10 mg PO DAILY 07/21/23 06/15/24 metoprolol succinate 25 mg 25 mg PO DAILY 07/21/23 06/15/24 tablet,extended release 24 hr pantoprazole 20 mg tablet,delayed 20 mg PO DAILY@0600 PRN Dyspepsia 06/10/24 05/06/25 release bupropion HCl 150 mg 24 hr tablet, 150 mg PO DAILY 11/19/23 06/15/24 extended release lorazepam 0.5 mg tablet 0.5 mg PO DAILY 11/19/23 06/15/24 mycophenolate mofetil 500 mg tablet 500 mg PO BID 05/07/24 06/15/24 prednisone 5 mg tablet mg PO 05/07/24 06/15/24 lidocaine 5 % topical ointment topical 3XD PRN pain 06/15/24 06/15/24 Previous Rx's ?Medication ?Instructions ?Recorded oxycodone 5 mg tablet 5 mg PO Q6H PRN pain #15 tabs 07/24/23 hydrocodone 5 mg-acetaminophen 325 1 tab PO Q6H PRN pain #10 tabs 05/03/24 mg tablet hydrocodone 5 mg-acetaminophen 325 1 tab PO Q6H PRN pain #10 tabs 11/07/24 mg tablet Allergies Allergy/AdvReac Type Severity Reaction Status Date / Time latex Allergy Mild LOCAL RASH Verified 01/10/25 15:29 Penicillins Allergy Mild CHILDHOOD Verified 01/10/25 15:29 Sulfa (Sulfonamide Allergy Mild SOMETHING Verified 01/10/25 15:29 Antibiotics) TO DO WITH BLADDER OR KIDNEY'S?? 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 HEENT: Atraumatic, pupils are equal round reactive to light, extraocular movements are intact, nares are clear, there is no conjunctival pallor. Throat is clear without any exudates, erythema, tonsillar enlargement or uvular deviation HEART: Regular rate and rhythm without murmur, clicks, rubs. No carotid bruits, pulses are equal in upper and lower extremities. Patient has chronic edema left lower extremity, chronic venous stasis changes. LUNGS:Lungs clear to auscultation, no wheezes, rales, crackles, chest moves symmetrically ABD:bowel sounds normal, soft, non-tender, no guarding, rebound, rigidity, no masses noted, no hepatosplenomegaly :No CVA tenderness MSCL: Non-tender, no muscle atrophy, muscles strength 5/5 upper and lower extremities, full range of motion, normal gait NEURO:CN 2-12 intact, sensation normal. Initial Vital Signs Initial Vital Signs: Vital Signs Temperature 97.4 F L 01/10/25 15:29 Pulse Rate 78 01/10/25 15:29 Respiratory Rate 16 01/10/25 15:29 Blood Pressure 137/94 H 01/10/25 15:29 Pulse Oximetry 96 01/10/25 15:29 Oxygen Delivery Method Room Air 01/10/25 15:29 Course Orders Ordered: ED Orders 01/10/25 15:23 EKG-12 Lead Stat 01/10/25 15:48 US periph venous low extrem lt Stat 01/10/25 15:49 XR chest 1V Stat EKG-12 Lead Stat 01/10/25 16:58 Complete Blood Count AUTO DIFF Stat Comprehensive Metabolic Panel Stat Lipase Stat Magnesium Stat NT-proBNP (BNP-Adult 18+) Stat Troponin I Stat Vital Signs Vital signs: Vital Signs - 8 hr 01/10/25 17:05 01/10/25 17:06 01/10/25 17:06 Pulse Rate 67 67 Respiratory Rate 16 Blood Pressure 169/91 H Pulse Oximetry 01/10/25 17:30 01/10/25 17:30 Pulse Rate 67 Respiratory Rate 21 Blood Pressure 190/125 H Pulse Oximetry 93 MDM - Arrhythmia/Palpitations Lab Data 01/10/25 16:58 01/10/25 16:58 Labs: Lab Results 01/10/25 Range/Units 16:58 WBC 7.3 (4.5-11.0) X10^3/uL RBC 4.36 (4.0-5.2) X10^6/uL Hgb 13.8 (12.0-16.0) g/dL Hct 40.5 (36-46) % MCV 92.9 (80-100) fL MCH 31.7 (26-34) PG MCHC 34.1 (30-36) % RDW 14.6 (11.6-14.8) % Plt Count 126 L (150-400) X10^3/uL Neut % (Auto) 75.5 H (50-75) % Lymph % (Auto) 20.4 L (25-40) % [place] % (Auto) 2.9 L (3-14) % Eos % (Auto) 0.2 L (2-4) % Baso % (Auto) 1.0 (0-2) % Neut # (Auto) 5500 (6221-7209) /uL Lymph # (Auto) 1500 (0253-2429) /uL [place] # (Auto) 200 (0-900) /uL Eos # (Auto) 0 (0-450) /uL Baso # (Auto) 100 (0-100) /uL Sodium 134 L (137-145) mmol/L Potassium 4.1 (3.4-5.1) mmol/L Chloride 100 (98-107) mmol/L Carbon Dioxide 27 (22-32) mmol/L BUN 26 H (7-17) mg/dL Creatinine 0.88 (0.52-1.04) mg/dL Estimated GFR > 60 (>60) mL/min BUN/Creatinine Ratio 29.5 H (6-22) Glucose 107 H (70-99) mg/dL Calcium 9.3 (8.4-10.2) mg/dL Magnesium 2.2 (1.6-2.3) mg/dL Total Bilirubin 1.2 (0.2-1.3) mg/dL AST 33 (14-36) IU/L ALT 23 (<35) IU/L Alkaline Phosphatase 79 (38-126) U/L Troponin I 0.012 (0.01-0.034) ng/mL NT-Pro-B Natriuret Pep 331 (<450) pg/mL Total Protein 8.3 H (6.3-8.2) g/dL Albumin 4.8 (3.5-5.0) g/dL Globulin 3.5 (1.7-4.1) g/dL Albumin/Globulin Ratio 1.4 (1.0-2.8) Lipase 198 (23-300) U/L ECG Data Attestation: I personally reviewed and interpreted this ECG as follows: Prior ECG tracings: available for review Interpretation: Sinus rhythm, rate 81 WI 148 QRS 82 QTC of 441. Patient has T-wave inversion 3 and AVF. Lateral leads. Prior patient's EKG appears similar. Repeat EKG shows sinus rhythm rate of 65 WI 152 QRS 88 QTC of 428, no acute ST-elevation T-wave inversions lateral leads 3 and AVF appears similar to prior from earlier today. MDM Narrative Medical decision making narrative: EKG shows sinus rhythm lateral T-wave changes, patient's repeat EKG shows the same continued sinus rhythm. Labs show a hemoglobin of 13.8 white count of 7.3 platelets are 126 fairly consistent with the patient's most recent priors available. Sodium is 134 BUN 26 electrolytes are otherwise appropriate creatinine 0.88 glucose is 107 LFTs are normal troponins less than 0.012 with a BNP of 331., lipase of 198. Chest x-ray no acute cardiopulmonary pathology moderate scoliosis and change from prior study. Heart size is enlarged. DVT ultrasound, no findings of lower extremity DVT thrombosis. Patient was sent today with a concern for arrhythmia, patient did have some extra beats but no other acute changes. No arrhythmias in the department she did not note she has been off her metoprolol for 4 days. Discussed with the patient felt appropriate for discharge home with return precautions. Discharge Plan Departure Patient Disposition: Home Clinical Impression: Dizziness Activity Restrictions/Additional Instructions: Your workup today did not capture any arrhythmias. I would recommend that you restart and continue your metoprolol as this can help prevent any fast or irregular heart beats. Please return if you have new or worsening symptoms, new chest pain or shortness of breath, lightheadedness or passing out, new swelling of your extremities or other new or concerning changes. Prescriptions: No Action lorazepam 0.5 mg tablet 0.5 mg PO DAILY bupropion HCl 150 mg tablet extended release 24 hr 150 mg PO DAILY lidocaine 5 % ointment topical 3XD PRN (Reason: pain) polyethylene glycol 3350 [Miralax] 17 GM powder in packet 17 gm PO BEDTIME Qty: 0 mycophenolate mofetil 500 mg tablet 500 mg PO BID prednisone 5 mg tablet PO hydrocodone-acetaminophen 5-325 mg tablet 1 tab PO Q6H PRN (Reason: pain) Qty: 10 0RF estradiol 0.01 % (0.1 mg/gram) cream 2 g vaginal 2XW Patient Comments: takes sundays and wednesdays vitamin B complex Tablet 1 tab PO DAILY cholecalciferol (vitamin D3) [Vitamin D3] 25 mcg (1,000 unit) Capsule 1 mcg PO DAILY Adults Multivitamin 18 mg iron-400 mcg-25 mcg Tablet 1 tab PO DAILY melatonin 3 mg Capsule 6 mg PO BEDTIME furosemide 20 mg tablet 10 mg PO DAILY metoprolol succinate 25 mg tablet extended release 24 hr 25 mg PO DAILY pantoprazole 20 mg Tablet,Delayed Release (Dr/Ec) 20 mg PO DAILY@0600 PRN (Reason: Dyspepsia) oxycodone 5 mg tablet 5 mg PO Q6H PRN (Reason: pain) Qty: 15 0RF hydrocodone-acetaminophen 5-325 mg tablet 1 tab PO Q6H PRN (Reason: pain) Qty: 10 0RF Referrals: Jayson Machado MD [Primary Care Provider, Family Practice] Stand Alone Forms: Patient Portal/API
[2025-01-10 17:05] VITALS: PULSE 67
[2025-01-10 17:06] VITALS: BP 169/91; PULSE 67; RESP 16
[2025-01-10 17:09] LABS: Add Manual Diff / Slide Review NO; Hematocrit 40.5 % (36-46); Hemoglobin 13.8 g/dL (12.0-16.0); Lymphocytes Absolute Auto 1500 /uL (1100-4500); Mean Corpuscular HGB Conc 34.1 % (30-36); Mean Corpuscular Hemoglobin 31.7 PG (26-34); Mean Corpuscular Volume 92.9 fL (80-100); Platelet Count 126 X10^3/uL (150-400)
[2025-01-10 17:21] LABS: Alanine Aminotransferase 23 IU/L (<35); Albumin 4.8 g/dL (3.5-5.0); Albumin Globulin Ratio 1.4 (1.0-2.8); Alkaline Phosphatase 79 U/L (38-126); Blood Urea Nitrogen 26 mg/dL (7-17); Calcium 9.3 mg/dL (8.4-10.2); Carbon Dioxide 27 mmol/L (22-32); Chloride 100 mmol/L (98-107); Estimated Glomerular Filt Rate > 60 mL/min (>60); Globulin 3.5 g/dL (1.7-4.1); Glucose 107 mg/dL (70-99); HEMOLYSIS < 15 (0-50); Lipase 198 U/L (23-300); Magnesium 2.2 mg/dL (1.6-2.3); Potassium 4.1 mmol/L (3.4-5.1); Sodium 134 mmol/L (137-145); Total Protein 8.3 g/dL (6.3-8.2)
[2025-01-10 17:30] VITALS: BP 190/125; PULSE 67; RESP 21; O2SAT 93
[2025-01-10 17:33] LABS: NT-proBNP (BNP-Adult 18+) 331 pg/mL (<450); Troponin I 0.012 ng/mL (0.01-0.034)
== END 2025-01-10 18:15 | disposition home or self-care (01) ==
PROVIDERS: Emergency Provider Emergency Medicine; Family Provider Physician Assistant; PCP Family Medicine
DX: R42 Dizziness and giddiness (principal); R00.2 Palpitations; D69.3 Immune thrombocytopenic purpura; R07.9 Chest pain, unspecified; M79.89 Other specified soft tissue disorders; Z79.52 Long term (current) use of systemic steroids
CPT/HCPCS: 36415; 71045; 80053; 83690; 83735; 83880; 84484; 85025; 93005; 93971; 99283; 99284